=== PATIENT | male | born 1940 | race African-American/Black ===

== ENCOUNTER 2017-12-11 12:12 | Observation (INO) | payer OTHER ==
[~2017-12-11] VITALS: Ht 182.9 cm; Wt 163.9 kg
--- NOTE | 2017-12-11 15:08 | Diagnostic Imaging Report ---
PROCEDURE:X-RAY UNILATERAL RIBS WITH CHEST X-RAY COMPARISON:None. INDICATIONS:FALL, LEFT SIDE RIB PAIN FINDINGS: 2 views each of the right and left ribs (AP and oblique) and one additional AP view of the chest. There are mildly displaced fractures of what appear to be the left lateral fourth, fifth, sixth, and seventh ribs. CONCLUSION: Mildly displaced fractures of what appear to be the left lateral fourth, fifth, sixth, and seventh ribs. Dictated by: Leandro Cohen M.D. on 12/11/2017 at 15:17 Electronically approved by: Leandro Cohen M.D. on 12/11/2017 at 15:17
[2017-12-11] MEDS ORDERED: SODIUM CHLORIDE FLUSH 10 ML SYR INJ PRN (16:45)
[2017-12-11] MEDS ORDERED: ONDANSETRON HCL INJ 2 MG/ML VIAL IV PRN (16:45)
[2017-12-11] MEDS ORDERED: KETOROLAC TROMETHAMINE 30 MG/ML VIAL IV STA (16:59)
[2017-12-11] MEDS ORDERED: FENTANYL 50 MCG/HR PATCH TOP SCH (17:30)
[2017-12-11] MEDS ORDERED: METFORMIN HCL500 MG PO (18:38)
[2017-12-11] MEDS ORDERED: SPIRONOLACTONE25 MG PO (18:38)
[2017-12-11] MEDS ORDERED: CARVEDILOL12.5 MG PO (18:38)
[2017-12-11] MEDS ORDERED: ASPIR 8181 MG (18:38)
[2017-12-11] MEDS ORDERED: DILTIAZEM 24HR180 MG PO ×2 (18:38→23:20)
[2017-12-11] MEDS ORDERED: HYDROCHLOROTHIA25 MG PO (18:38)
[2017-12-11] MEDS ORDERED: LOSARTAN POTAS100 MG PO (18:38)
[2017-12-11] MEDS ORDERED: DILTIAZEM HCL60 MG PO (18:38)
[2017-12-11] MEDS ORDERED: OMEPRAZOLE40 MG PO (18:38)
[2017-12-11 19:35] VITALS: BP 131/57
[2017-12-11] MEDS ORDERED: KETOROLAC TROMETHAMINE 30 MG/ML VIAL IV ONE (19:45)
[2017-12-11 20:00] VITALS: BP 131/57
[2017-12-11] MEDS ORDERED: LANTUS 3ML100 UNITS/ SQ (23:20)
[2017-12-11] MEDS: SODIUM CHLORIDE 0.9% 1000ML 1,000 ML IV SCH (23:28)
[2017-12-12] VITALS (7 sets, daily range): BP systolic 136–162; BP diastolic 62–79
[2017-12-12] MEDS: MORPHINE SULFATE 2 MG/ML SYR IV PRN ×3 (01:03→20:03)
[2017-12-12] MEDS ORDERED: METFORMIN HCL 500 MG TAB PO SCH (08:00)
[2017-12-12] MEDS ORDERED: DILTIAZEM HCL 60 MG TAB PO SCH (09:00)
[2017-12-12] MEDS ORDERED: ASPIRIN 81 MG CHEW TAB PO SCH (09:00)
[2017-12-12] MEDS ORDERED: DILTIAZEM HCL 180 MG CAP CD PO SCH (09:00)
[2017-12-12] MEDS: SPIRONOLACTONE 25 MG TAB PO SCH (09:01)
[2017-12-12] MEDS: DILTIAZEM HCL 180 MG CAP CD PO SCH (09:01)
[2017-12-12] MEDS: LOSARTAN POTASSIUM 100 MG TAB PO SCH (09:02)
[2017-12-12] MEDS: PANTOPRAZOLE SOD 40 MG TABEC PO SCH (09:02)
[2017-12-12] MEDS: LIDOCAINE 5% PATCH TP SCH (09:02)
[2017-12-12] MEDS: HYDROCHLOROTHIAZIDE 25 MG TAB PO SCH (09:02)
[2017-12-12] MEDS: CARVEDILOL 12.5 MG TAB PO SCH ×2 (09:02→17:47)
[2017-12-12] MEDS: SODIUM CHLORIDE 0.9% 1000ML 1,000 ML IV SCH (10:32)
[2017-12-12] MEDS ORDERED: DEXTROSE 50% SYRINGE 50 ML IV PRN (12:45)
[2017-12-12] MEDS ORDERED: MAGNESIUM HYDROXIDE 30 ML UDC PO PRN (12:45)
[2017-12-12] MEDS ORDERED: HYDROCODONE/APAP 10MG-325MG TAB PO PRN (12:45)
[2017-12-12] MEDS: KETOROLAC TROMETHAMINE 30 MG/ML VIAL IV SCH ×3 (13:03→23:21)
[2017-12-12] MEDS: SENNOSIDES 8.6 MG TAB PO SCH ×2 (13:03→17:47)
[2017-12-12 13:30] LABS: BASOPHILS % 0.2 % (0.0-1.0); EOSINOPHILS # (AUTO) 0.3 (0.0-0.4); EOSINOPHILS % 3.1 % (0.0-6.0); HEMATOCRIT 34.9 % (38.2-49.6); HEMOGLOBIN 10.5 g/dL (14.0-18.0); LYMPHOCYTES # (AUTO) 1.9 (1.0-3.2); LYMPHOCYTES % 19.1 % (18.0-39.1); MEAN CORPUSCULAR HEMOGLOBIN 27.3 pg (28-32); MEAN CORPUSCULAR HGB CONC 30.1 g/dL (31-35); MEAN CORPUSCULAR VOLUME 90.6 fL (81-99); MONOCYTES # (AUTO) 1.1 (0.2-0.8); NEUTROPHILS # (AUTO) 6.5 (2.1-6.9); NEUTROPHILS % 66.2 % (38.7-80.0); PLATELET COUNT 259 x10e3/uL (140-360); RED BLOOD COUNT 3.85 x10e6/uL (4.3-5.7); RED CELL DISTRIBUTION WIDTH 15.9 % (11.7-14.4)
[2017-12-12 13:46] LABS: ANION GAP 10.7 mmol/L (8-16); CREATININE, SERUM 1.71 mg/dL (0.72-1.25); POTASSIUM 4.7 mmol/L (3.5-5.1)
[2017-12-12] MEDS: INSULIN LISPRO 100 UNIT/1 ML 3ML VIAL SQ SCH ×2 (16:30→21:00)
[2017-12-12] MEDS: METFORMIN HCL 500 MG TAB PO SCH (17:47)
[2017-12-12] MEDS ORDERED: NIFEDIPINE 10 MG CAP PO ONE (20:30)
[2017-12-12] MEDS ORDERED: NIFEDIPINE CR 30 MG TAB PO SCH (20:32)
[2017-12-13] VITALS: BP 152/68
--- NOTE | 2017-12-13 02:34 | Consultation ---
DATE OF CONSULTATION: PULMONARY CONSULTATION REASON FOR CONSULT: Shortness of breath. HPI: Mr. Valerio is a 77-year-old male who presented to the emergency room after a fall. Patient had an accidental fall. He underwent a chest x-ray in the emergency room, which showed evidence of 4th, 5th, 6th, and 7th rib fractures on the left side, which were nondisplaced. He is having left-sided chest pain and is getting IV analgesics. He denies any nausea, vomiting, diarrhea, or focal weakness. REVIEW OF SYSTEMS GENERAL: Denies any fever or chills. HEENT: Denies any head trauma or head injury. ENT: Denies any earache, nosebleed or throat pain. CV: Denies any chest pain. RESPIRATORY: Patient has shortness of breath. GI: Denies any nausea or vomiting. The rest of the review systems are negative except as in HPI. PAST MEDICAL HISTORY: Hypertension, ex-smoker and smoked for 20 years. Patient has been tested for sleep apnea, and he does not have obstructive sleep apnea. However, he uses oxygen at night to sleep. Has diabetes and hypertension. PAST SURGICAL HISTORY: Soft tissue tumor removal from the leg. PHYSICAL EXAMINATION VITAL SIGNS: Temperature 97.2, pulse of 80, blood pressure 136/62, respiratory rate 18, O2 sat 96% on 2 L. SKIN: Warm and dry. CHEST: Clear to auscultation bilaterally. No wheezing. HEART: S1 and S2 audible. CHEST: Clear to auscultation bilaterally. No wheezing. Patient is having difficulty breathing and has pleuritic chest pain on the left side. ABDOMEN: Soft, nontender and nondistended. EXTREMITIES: No clubbing, cyanosis or edema. NEUROLOGIC: Awake and alert. Following commands. Responds to questions appropriately. LABS: White count of 9.8, hemoglobin 10.5 and platelets 259,000. Chemistry: BUN 25, creatinine 1.71. He has never been here, so unsure about his baseline. ASSESSMENT AND PLAN: Mr. Valerio is a 77-year-old male, morbidly obese, presented after the fall that resulted in rib fractures causing him to have shortness of breath and pleuritic chest pain. CURRENT PROBLEMS 1. Rib fractures causing shortness of breath and pleuritic chest pain: Unfortunately, it will heal with the passage of time. I have explained to the patient that he has to continue pain medications as an outpatient as well. Currently, on IV Toradol and morphine, which will be continued. 2. Hypertension: Continue the patient on antihypertensive medications. Thank you for this consult. Job#: [id number] CLARENCE
[2017-12-13 03:59] VITALS: BP 159/68
[2017-12-13] MEDS: KETOROLAC TROMETHAMINE 30 MG/ML VIAL IV SCH (05:45)
[2017-12-13 06:49] LABS: BASOPHILS % 0.3 % (0.0-1.0); EOSINOPHILS # (AUTO) 0.5 (0.0-0.4); EOSINOPHILS % 5.4 % (0.0-6.0); HEMATOCRIT 34.7 % (38.2-49.6); HEMOGLOBIN 10.7 g/dL (14.0-18.0); LYMPHOCYTES # (AUTO) 1.9 (1.0-3.2); LYMPHOCYTES % 21.8 % (18.0-39.1); MEAN CORPUSCULAR HEMOGLOBIN 27.5 pg (28-32); MEAN CORPUSCULAR HGB CONC 30.8 g/dL (31-35); MEAN CORPUSCULAR VOLUME 89.2 fL (81-99); MONOCYTES # (AUTO) 1.2 (0.2-0.8); NEUTROPHILS # (AUTO) 5.2 (2.1-6.9); NEUTROPHILS % 59.2 % (38.7-80.0); PLATELET COUNT 164 x10e3/uL (140-360); RED BLOOD COUNT 3.89 x10e6/uL (4.3-5.7); RED CELL DISTRIBUTION WIDTH 15.9 % (11.7-14.4)
[2017-12-13 07:13] LABS: ANION GAP 14.4 mmol/L (8-16); BLOOD UREA NITROGEN 26 mg/dL (7-26); BUN/CREATININE RATIO 19 (6-25); CALCIUM 9.2 mg/dL (8.4-10.2); CARBON DIOXIDE 29 mmol/L (22-29); CHLORIDE 100 mmol/L (98-107); CREATININE, SERUM 1.35 mg/dL (0.72-1.25); EST GLOMERULAR FILTRATION RATE > 60 ML/MIN (60-); GLUCOSE 119 mg/dL (74-118); POTASSIUM 4.4 mmol/L (3.5-5.1); SODIUM 139 mmol/L (136-145)
[2017-12-13] MEDS: INSULIN LISPRO 100 UNIT/1 ML 3ML VIAL SQ SCH (07:30)
[2017-12-13 08:00] VITALS: BP 165/72
[2017-12-13] MEDS: METFORMIN HCL 500 MG TAB PO SCH (08:57)
[2017-12-13] MEDS: SPIRONOLACTONE 25 MG TAB PO SCH (08:57)
[2017-12-13] MEDS: DILTIAZEM HCL 180 MG CAP CD PO SCH (08:58)
[2017-12-13] MEDS: HYDROCHLOROTHIAZIDE 25 MG TAB PO SCH (08:59)
[2017-12-13] MEDS: PANTOPRAZOLE SOD 40 MG TABEC PO SCH (08:59)
[2017-12-13] MEDS: LOSARTAN POTASSIUM 100 MG TAB PO SCH (08:59)
[2017-12-13] MEDS: SENNOSIDES 8.6 MG TAB PO SCH (08:59)
[2017-12-13] MEDS: CARVEDILOL 12.5 MG TAB PO SCH (08:59)
[2017-12-13] MEDS: LIDOCAINE 5% PATCH TP SCH (08:59)
[2017-12-13] MEDS ORDERED: NIFEDIPINE 10 MG CAP PO SCH (09:00)
[2017-12-13] MEDS ORDERED: FENTANYL 50 MCG/HR PATCH TOP SCH (09:45)
--- NOTE | 2017-12-14 03:18 | Discharge Summary ---
FINAL DIAGNOSES 1. Displaced fractures of left lateral 4th, 5th, 6th, and 7th rib after an accidental fall. 2. Intractable left side pain, much improved. SUMMARY: Patient is a 77-year-old male, obese, apparently trying to put on his pants, fell on the left side, fractured multiple ribs, intractable pain, came into the hospital for pain control. The patient doing much better now. He is stable. He will go home today. Follow up with his family doctor. He had Duragesic patch and multiple Lidoderm patch along with naproxen and tramadol. The patient is, otherwise, stable. He will go home, follow up with his family doctor on Thursday or Thursday to continue with pain management as an outpatient. The patient does have oxygen at home. Job#: [id number] CQ
[2017-12-14] MEDS ORDERED: FENTANYL 50 MCG/HR PATCH TOP SCH (17:30)
== END 2017-12-13 10:04 | disposition home or self-care (01) ==
LOC: ER 12:12 → ERHOLD 17:33 → IMCU 18:19
PROVIDERS: ADMIT Internal Medicine; ATTEND Internal Medicine
DX: S22.42XA Multiple fractures of ribs, left side, initial encounter for closed fracture (principal); W18.09XA Striking against other object with subsequent fall, initial encounter; Y93.89 Activity, other specified; Y92.010 Kitchen of single-family (private) house as the place of occurrence of the external cause; Z99.81 Dependence on supplemental oxygen; E66.01 Morbid (severe) obesity due to excess calories; Z68.42 Body mass index [BMI] 45.0-49.9, adult; I10 Essential (primary) hypertension; K21.9 Gastro-esophageal reflux disease without esophagitis; E11.9 Type 2 diabetes mellitus without complications; Z79.4 Long term (current) use of insulin; Z88.5 Allergy status to narcotic agent; Z88.0 Allergy status to penicillin; Z87.891 Personal history of nicotine dependence
CPT/HCPCS: 36415 ×3; 71101; 80048 ×2; 82948 ×3; 85025 ×2; 96367; 96374; 99284; G0378 ×3; J1885 ×3; J2270; J2405; J7030 ×2

== ENCOUNTER 2019-08-11 03:47 | Inpatient (IN) | payer OTHER ==
[~2019-08-11] VITALS: Ht 182.9 cm; Wt 159.7 kg
[2019-08-11] VITALS (11 sets, daily range): BP systolic 104–138; BP diastolic 48–72
[~2019-08-11 03:47] MED LIST: ASPIR 8181 MG; CARVEDILOL12.5 MG PO; DILTIAZEM 24HR180 MG PO; DILTIAZEM HCL60 MG PO; HYDROCHLOROTHIA25 MG PO; LANTUS 3ML100 UNITS/ SQ; LOSARTAN POTAS100 MG PO; METFORMIN HCL500 MG PO; OMEPRAZOLE40 MG PO; SPIRONOLACTONE25 MG PO
--- OUTSIDE RECORDS SUMMARY | 2019-08-11 03:50 | XMS REPORT ---
Author Author [facility] Address Unknown Phone Unavailable Care Team Providers Care Freight Breaker Name Role Phone UNKNOWN, REFFERING PP Unavailable MELY LIANG Unavailable Unavailable PETRONALani RASHID Unavailable Unavailable EASTON, L ELEGY Unavailable Unavailable Problems This patient has no known problems. Allergies, Adverse Reactions, Alerts This patient has no known allergies or adverse reactions. Medications This patient has no known medications. Results Test Description Test Time Test Comments Text Results Atomic Results Result Comments U/S, TESTICULAR (SCROTUM) 2018-03-24 06:35:00 Reason for exam:->r/o abscessShould this be performed at the bedside?->No Addendum BeginsREPORT STATUS:A The following addendum is being made to expand on the patient's clinical history, and does not substantially change the findings or recommendations of the original report. Additional history: Scrotal swelling. Status post fall and trauma two weeks prior. Signed: Gracie Esquivel MDReport Verified Date/Time: 03/24/2018 06:35:05 Reading Location: [address] Transitional Reading RoomAddendum EndsFINAL REPORT Exam: Testicular ultrasound Clinical History: r/o abscess Technique: Testicular ultrasound was performed. Color and spectral Doppler ultrasound was also performed. Findings: RIGHT:The right testicle is normal in size and echogenicity measuring 3.7 x 1.8 x 2.5 cm. There are multiple tiny echogenic foci within the testicle in keeping with microlithiasis. The right epididymis is normal in size and echogenicity. The right epididymal head measures up to 1.0 cm. There is a 4 mm epididymal head cyst or spermatocele. Color and spectral Doppler evaluation of the right testicle and epididymis demonstrates normal vascular flow without hyperemia. There is a large hydrocele. There is no varicocele. LEFT:The left testicle is normal in size and echogenicity measuring 4.5 x 3.0 x 2.8 cm. There are a few scattered tiny echogenic foci within the testicle in keeping with microlithiasis. The left epididymis is normal in size and echogenicity. The left epididymal head measures up to 1.4 cm. Color and spectral Doppler evaluation of the left testicle and epididymis demonstrates normal vascular flow without hyperemia. There is a large hydrocele. There is no varicocele. 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 Sig bonny: Gracie Esquivel MDReport Verified Date/Time: 03/10/2018 04:37:32 Reading Location: [facility] C0[facility] Transitional Reading Room UE EXAM 2018-03-16 19:05:00 Surgical Pathology Report Case: [id number] Authorizing Provider: Rosario Bennett MD Collected: 03/15/2018 1715 Ord ering Location: [address] Received: 03/16/2018 0801 SERVICE Pathologist: Stacie Lr MD Specimen: Biopsy, Gastric, gastric bx A. 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 Signing Pathologist Direct Phone Line: [phone] signed by Stacie Lr MD on 03/16/2018 at 7:05 [id number] mass Gastric biopsy The specimen is received in a formalin-filled container labeled with the patient's information and labeled "gastric biopsy" and consists of two fragments of albert tissue measuring 0.1 and 0.2 cm, submitted in A1. CG/ew A. Warthin-starry stain is examined. POCT-GLUCOSE METER 2018-03-16 11:58:00 POC-GLUCOSE METER (BEAKER) (test vfyz=6061) 184 mg/dL 70-110 TESTED AT [facility] [address] [facility] [address] [id number] 04:40:00* Test Item Value Reference Range Comments PHOSPHORUS (BEAKER) (test hwei=388) 4.2 mg/dL 2.3-4.7 [id number] 04:40:00* Test Item Value Reference Range Comments MAGNESIUM (BEAKER) (test klnm=760) 1.5 mg/dL 1.6-2.6 BASIC METABOLIC [id number] 04:40:00* Test Item Value Reference Range Comments SODIUM (BEAKER) (test uenf=291) 143 meq/L 136-145 POTASSIUM (BEAKER) (test rjiq=801) 3.8 meq/L 3.5-5.1 CHLORIDE (BEAKER) (test dorb=869) 108 meq/L 98-107 CO2 (BEAKER) (test vbgq=903) 25 meq/L 22-29 BLOOD UREA NITROGEN (BEAKER) (test atvd=394) 10 mg/dL 7-21 CREATININE (BEAKER) (test mame=428) 1.53 mg/dL 0.57-1.25 GLUCOSE RANDOM (BEAKER) (test vhnp=667) 133 mg/dL 70-105 CALCIUM (BEAKER) (test jgzy=367) 9.1 mg/dL 8.4-10.2 EGFR (BEAKER) (test tmlk=9575) 53 mL/min/1.73 sq m ESTIMATED GFR IS NOT ACCURATE CREATININE CLEARANCE IN PREDICTING GLOMERULAR FILTRATION RATE. ESTIMATED GFR IS NOT APPLICABLE FOR DIALYSIS PATIENTS. CBC W/PLT COUNT & AUTO [id number] 04:24:00* Test Item Value Reference Range Comments WHITE BLOOD CELL COUNT (BEAKER) (test dsqd=024) 8.5 K/ L 3.5-10.5 RED BLOOD CELL COUNT (BEAKER) (test vwot=095) 4.61 M/ L 4.63-6.08 HEMOGLOBIN (BEAKER) (test iily=463) 12.5 GM/DL 13.7-17.5 HEMATOCRIT (BEAKER) (test nddw=157) 41.0 % 40.1-51.0 MEAN CORPUSCULAR VOLUME (BEAKER) (test dnvn=378) 88.9 fL 79.0-92.2 MEAN CORPUSCULAR HEMOGLOBIN (BEAKER) (test mlua=969) 27.1 pg 25.7-32.2 MEAN CORPUSCULAR HEMOGLOBIN CONC (BEAKER) (test fbgj=220) 30.5 GM/DL 32.3-36.5 RED CELL DISTRIBUTION WIDTH (BEAKER) (test wgrq=737) 18.5 % 11.6-14.4 PLATELET COUNT (BEAKER) (test qwbh=364) 374 K/CU MM 150-450 MEAN PLATELET VOLUME (BEAKER) (test axkm=472) 11.5 fL 9.4-12.4 NUCLEATED RED BLOOD CELLS (BEAKER) (test kchp=448) 0 /100 WBC 0-0 NEUTROPHILS RELATIVE PERCENT (BEAKER) (test lpoq=898) 60 % LYMPHOCYTES RELATIVE PERCENT (BEAKER) (test kahj=120) 24 % MONOCYTES RELATIVE PERCENT (BEAKER) (test mtcn=131) 11 % EOSINOPHILS RELATIVE PERCENT (BEAKER) (test witx=290) 5 % BASOPHILS RELATIVE PERCENT (BEAKER) (test nhzd=300) 1 % NEUTROPHILS ABSOLUTE COUNT (BEAKER) (test vdli=944) 5.08 K/ L 1.78-5.38 LYMPHOCYTES ABSOLUTE COUNT (BEAKER) (test vugl=727) 2.02 K/ L 1.32-3.57 MONOCYTES ABSOLUTE COUNT (BEAKER) (test gvyi=861) 0.90 K/ L 0.30-0.82 EOSINOPHILS ABSOLUTE COUNT (BEAKER) (test bhnk=388) 0.38 K/ L 0.04-0.54 BASOPHILS ABSOLUTE COUNT (BEAKER) (test vqqe=426) 0.06 K/ L 0.01-0.08 IMMATURE GRANULOCYTES-RELATIVE PERCENT (BEAKER) (test irla=6725) 1 % 0-1 POCT-GLUCOSE [id number] 03:43:00* Test Item Value Reference Range Comments POC-GLUCOSE METER (BEAKER) (test xkyw=3675) 172 mg/dL 70-110 TESTED AT [address] [address] POCT-GLUCOSE [id number] 17:38:00* Test Item Value Reference Range Comments POC-GLUCOSE METER (BEAKER) (test smgo=4418) 143 mg/dL 70-110 TESTED AT [address] [address] POCT-GLUCOSE [id number] 11:31:00* Test Item Value Reference Range Comments POC-GLUCOSE METER (BEAKER) (test fgbf=2803) 150 mg/dL 70-110 TESTED AT [address] [address] POCT-GLUCOSE [id number] 07:50:00* Test Item Value Reference Range Comments POC-GLUCOSE METER (BEAKER) (test migd=2610) 155 mg/dL 70-110 TESTED AT [facility] [address] [facility] [address] [id number] 06:48:00* Test Item Value Reference Range Comments PHOSPHORUS (BEAKER) (test cvvb=925) 4.6 mg/dL 2.3-4.7 [id number] 06:48:00* Test Item Value Reference Range Comments MAGNESIUM (BEAKER) (test rmxu=894) 1.7 mg/dL 1.6-2.6 BASIC METABOLIC [id number] 06:48:00* Test Item Value Reference Range Comments SODIUM (BEAKER) (test ppbn=265) 142 meq/L 136-145 POTASSIUM (BEAKER) (test dbux=554) 4.0 meq/L 3.5-5.1 CHLORIDE (BEAKER) (test qzzs=516) 107 meq/L 98-107 CO2 (BEAKER) (test kjdj=475) 28 meq/L 22-29 BLOOD UREA NITROGEN (BEAKER) (test zroo=432) 10 mg/dL 7-21 CREATININE (BEAKER) (test kxuw=494) 1.45 mg/dL 0.57-1.25 GLUCOSE RANDOM (BEAKER) (test cafh=136) 137 mg/dL 70-105 CALCIUM (BEAKER) (test jrdu=731) 9.3 mg/dL 8.4-10.2 EGFR (BEAKER) (test fyte=9302) 57 mL/min/1.73 sq m ESTIMATED GFR IS NOT ACCURATE CREATININE CLEARANCE IN PREDICTING GLOMERULAR FILTRATION RATE. ESTIMATED GFR IS NOT APPLICABLE FOR DIALYSIS PATIENTS. CBC W/PLT COUNT & AUTO [id number] 06:25:00* Test Item Value Reference Range Comments WHITE BLOOD CELL COUNT (BEAKER) (test mjst=173) 9.0 K/ L 3.5-10.5 RED BLOOD CELL COUNT (BEAKER) (test zsqa=086) 4.66 M/ L 4.63-6.08 HEMOGLOBIN (BEAKER) (test oklx=711) 12.2 GM/DL 13.7-17.5 HEMATOCRIT (BEAKER) (test uymi=244) 41.4 % 40.1-51.0 MEAN CORPUSCULAR VOLUME (BEAKER) (test pcuz=756) 88.8 fL 79.0-92.2 MEAN CORPUSCULAR HEMOGLOBIN (BEAKER) (test hikl=947) 26.2 pg 25.7-32.2 MEAN CORPUSCULAR HEMOGLOBIN CONC (BEAKER) (test xnag=290) 29.5 GM/DL 32.3-36.5 RED CELL DISTRIBUTION WIDTH (BEAKER) (test jgyx=732) 18.3 % 11.6-14.4 PLATELET COUNT (BEAKER) (test pmax=519) 424 K/CU MM 150-450 MEAN PLATELET VOLUME (BEAKER) (test raji=780) 11.3 fL 9.4-12.4 NUCLEATED RED BLOOD CELLS (BEAKER) (test bniu=458) 0 /100 WBC 0-0 NEUTROPHILS RELATIVE PERCENT (BEAKER) (test rtki=978) 58 % LYMPHOCYTES RELATIVE PERCENT (BEAKER) (test bmpy=708) 22 % MONOCYTES RELATIVE PERCENT (BEAKER) (test itlu=301) 13 % EOSINOPHILS RELATIVE PERCENT (BEAKER) (test svbw=895) 6 % BASOPHILS RELATIVE PERCENT (BEAKER) (test cxpr=752) 1 % NEUTROPHILS ABSOLUTE COUNT (BEAKER) (test ebts=301) 5.29 K/ L 1.78-5.38 LYMPHOCYTES ABSOLUTE COUNT (BEAKER) (test ubol=490) 1.94 K/ L 1.32-3.57 MONOCYTES ABSOLUTE COUNT (BEAKER) (test fmpi=498) 1.15 K/ L 0.30-0.82 EOSINOPHILS ABSOLUTE COUNT (BEAKER) (test hopo=802) 0.54 K/ L 0.04-0.54 BASOPHILS ABSOLUTE COUNT (BEAKER) (test efcr=115) 0.05 K/ L 0.01-0.08 IMMATURE GRANULOCYTES-RELATIVE PERCENT (BEAKER) (test hdiq=9233) 1 % 0-1 POCT-GLUCOSE [id number] 21:31:00* Test Item Value Reference Range Comments POC-GLUCOSE METER (BEAKER) (test oawv=0879) 146 mg/dL 70-110 TESTED AT [facility] [address] [facility] [address] POCT-GLUCOSE [id number] 17:26:00* Test Item Value Reference Range Comments POC-GLUCOSE METER (BEAKER) (test vxiq=4535) 163 mg/dL 70-110 TESTED AT [facility] [address] [facility] [address] POCT-GLUCOSE [id number] 12:26:00* Test Item Value Reference Range Comments POC-GLUCOSE METER (BEAKER) (test izqx=1258) 233 mg/dL 70-110 TESTED AT [place] [id number] [facility] [address] POCT-GLUCOSE [id number] 07:46:00* Test Item Value Reference Range Comments POC-GLUCOSE METER (BEAKER) (test czui=0316) 158 mg/dL 70-110 TESTED AT [place] [id number] [facility] [address] CBC W/PLT COUNT & AUTO [id number] 06:32:00* Test Item Value Reference Range Comments WHITE BLOOD CELL COUNT (BEAKER) (test dwya=533) 8.6 K/ L 3.5-10.5 RED BLOOD CELL COUNT (BEAKER) (test lopv=040) 4.58 M/ L 4.63-6.08 HEMOGLOBIN (BEAKER) (test vkvh=670) 12.5 GM/DL 13.7-17.5 HEMATOCRIT (BEAKER) (test xrcg=730) 40.5 % 40.1-51.0 MEAN CORPUSCULAR VOLUME (BEAKER) (test vgfg=142) 88.4 fL 79.0-92.2 MEAN CORPUSCULAR HEMOGLOBIN (BEAKER) (test rmly=637) 27.3 pg 25.7-32.2 MEAN CORPUSCULAR HEMOGLOBIN CONC (BEAKER) (test bozd=579) 30.9 GM/DL 32.3-36.5 RED CELL DISTRIBUTION WIDTH (BEAKER) (test dvfi=562) 18.4 % 11.6-14.4 PLATELET COUNT (BEAKER) (test lvor=861) 272 K/CU MM 150-450 MEAN PLATELET VOLUME (BEAKER) (test ihwt=006) 11.6 fL 9.4-12.4 NUCLEATED RED BLOOD CELLS (BEAKER) (test wice=128) 0 /100 WBC 0-0 NEUTROPHILS RELATIVE PERCENT (BEAKER) (test ljru=366) 54 % LYMPHOCYTES RELATIVE PERCENT (BEAKER) (test bzhp=450) 23 % MONOCYTES RELATIVE PERCENT (BEAKER) (test kaop=229) 17 % EOSINOPHILS RELATIVE PERCENT (BEAKER) (test hqsj=406) 6 % BASOPHILS RELATIVE PERCENT (BEAKER) (test jzyn=953) 1 % NEUTROPHILS ABSOLUTE COUNT (BEAKER) (test odhw=855) 4.59 K/ L 1.78-5.38 LYMPHOCYTES ABSOLUTE COUNT (BEAKER) (test cagh=789) 1.95 K/ L 1.32-3.57 MONOCYTES ABSOLUTE COUNT (BEAKER) (test xlcm=035) 1.41 K/ L 0.30-0.82 EOSINOPHILS ABSOLUTE COUNT (BEAKER) (test lkdm=616) 0.49 K/ L 0.04-0.54 BASOPHILS ABSOLUTE COUNT (BEAKER) (test hpke=423) 0.04 K/ L 0.01-0.08 IMMATURE GRANULOCYTES-RELATIVE PERCENT (BEAKER) (test momi=1663) 1 % 0-1 [id number] 06:04:00* Test Item Value Reference Range Comments PHOSPHORUS (BEAKER) (test kqap=877) 3.7 mg/dL 2.3-4.7 [id number] 06:04:00* Test Item Value Reference Range Comments MAGNESIUM (BEAKER) (test mety=752) 1.4 mg/dL 1.6-2.6 BASIC METABOLIC [id number] 06:04:00* Test Item Value Reference Range Comments SODIUM (BEAKER) (test hlsl=187) 140 meq/L 136-145 POTASSIUM (BEAKER) (test haky=951) 4.0 meq/L 3.5-5.1 CHLORIDE (BEAKER) (test nwhi=350) 107 meq/L 98-107 CO2 (BEAKER) (test adbq=614) 24 meq/L 22-29 BLOOD UREA NITROGEN (BEAKER) (test ngiq=303) 10 mg/dL 7-21 CREATININE (BEAKER) (test jdka=088) 1.34 mg/dL 0.57-1.25 GLUCOSE RANDOM (BEAKER) (test yhvf=334) 160 mg/dL 70-105 CALCIUM (BEAKER) (test gygf=631) 9.3 mg/dL 8.4-10.2 EGFR (BEAKER) (test ielo=7374) 62 mL/min/1.73 sq m ESTIMATED GFR IS NOT ACCURATE CREATININE CLEARANCE IN PREDICTING GLOMERULAR FILTRATION RATE. ESTIMATED GFR IS NOT APPLICABLE FOR DIALYSIS PATIENTS. POCT-GLUCOSE [id number] 22:00:00* Test Item Value Reference Range Comments POC-GLUCOSE METER (BEAKER) (test xbox=8292) 183 mg/dL 70-110 TESTED AT [address] [address] POCT-GLUCOSE [id number] 17:39:00* Test Item Value Reference Range Comments POC-GLUCOSE METER (BEAKER) (test snhr=3602) 172 mg/dL 70-110 TESTED AT [address] [address] POCT-GLUCOSE [id number] 12:35:00* Test Item Value Reference Range Comments POC-GLUCOSE METER (BEAKER) (test fred=2776) 238 mg/dL 70-110 TESTED AT [address] [address] POCT-GLUCOSE [id number] 07:51:00* Test Item Value Reference Range Comments POC-GLUCOSE METER (BEAKER) (test ntjs=6072) 160 mg/dL 70-110 TESTED AT [address] [address] [id number] 07:42:00* Test Item Value Reference Range Comments PHOSPHORUS (BEAKER) (test xqnp=464) 2.8 mg/dL 2.3-4.7 [id number] 07:42:00* Test Item Value Reference Range Comments MAGNESIUM (BEAKER) (test hdfw=985) 1.4 mg/dL 1.6-2.6 BASIC METABOLIC [id number] 07:42:00* Test Item Value Reference Range Comments SODIUM (BEAKER) (test lifg=090) 139 meq/L 136-145 POTASSIUM (BEAKER) (test heuj=297) 4.0 meq/L 3.5-5.1 CHLORIDE (BEAKER) (test eqnh=362) 106 meq/L 98-107 CO2 (BEAKER) (test zmzd=294) 25 meq/L 22-29 BLOOD UREA NITROGEN (BEAKER) (test etrv=412) 8 mg/dL 7-21 CREATININE (BEAKER) (test effc=125) 1.13 mg/dL 0.57-1.25 GLUCOSE RANDOM (BEAKER) (test pnyb=209) 135 mg/dL 70-105 CALCIUM (BEAKER) (test motn=643) 9.2 mg/dL 8.4-10.2 EGFR (BEAKER) (test sjup=6085) 76 mL/min/1.73 sq m ESTIMATED GFR IS NOT ACCURATE CREATININE CLEARANCE IN PREDICTING GLOMERULAR FILTRATION RATE. ESTIMATED GFR IS NOT APPLICABLE FOR DIALYSIS PATIENTS. CBC W/PLT COUNT & AUTO [id number] 07:29:00* Test Item Value Reference Range Comments WHITE BLOOD CELL COUNT (BEAKER) (test ynyq=226) 7.5 K/ L 3.5-10.5 RED BLOOD CELL COUNT (BEAKER) (test euyk=419) 4.72 M/ L 4.63-6.08 HEMOGLOBIN (BEAKER) (test wugz=493) 12.8 GM/DL 13.7-17.5 HEMATOCRIT (BEAKER) (test qysi=126) 41.8 % 40.1-51.0 MEAN CORPUSCULAR VOLUME (BEAKER) (test ktdz=289) 88.6 fL 79.0-92.2 MEAN CORPUSCULAR HEMOGLOBIN (BEAKER) (test asnh=790) 27.1 pg 25.7-32.2 MEAN CORPUSCULAR HEMOGLOBIN CONC (BEAKER) (test ormu=417) 30.6 GM/DL 32.3-36.5 RED CELL DISTRIBUTION WIDTH (BEAKER) (test gsnp=970) 18.2 % 11.6-14.4 PLATELET COUNT (BEAKER) (test lphq=251) 319 K/CU MM 150-450 MEAN PLATELET VOLUME (BEAKER) (test zadx=048) 11.1 fL 9.4-12.4 NUCLEATED RED BLOOD CELLS (BEAKER) (test qgfy=756) 0 /100 WBC 0-0 NEUTROPHILS RELATIVE PERCENT (BEAKER) (test tlux=516) 48 % LYMPHOCYTES RELATIVE PERCENT (BEAKER) (test kvvj=872) 24 % MONOCYTES RELATIVE PERCENT (BEAKER) (test jltj=252) 19 % EOSINOPHILS RELATIVE PERCENT (BEAKER) (test coey=887) 7 % BASOPHILS RELATIVE PERCENT (BEAKER) (test rfcc=713) 1 % NEUTROPHILS ABSOLUTE COUNT (BEAKER) (test cvzu=437) 3.58 K/ L 1.78-5.38 LYMPHOCYTES ABSOLUTE COUNT (BEAKER) (test cwco=943) 1.78 K/ L 1.32-3.57 MONOCYTES ABSOLUTE COUNT (BEAKER) (test kfvo=701) 1.43 K/ L 0.30-0.82 EOSINOPHILS ABSOLUTE COUNT (BEAKER) (test droi=956) 0.55 K/ L 0.04-0.54 BASOPHILS ABSOLUTE COUNT (BEAKER) (test yqao=424) 0.05 K/ L 0.01-0.08 IMMATURE GRANULOCYTES-RELATIVE PERCENT (BEAKER) (test netm=7841) 1 % 0-1 BLOOD [id number] 06:00:00* Test Item Value Reference Range Comments CULTURE (BEAKER) (test dumh=8666) No growth in 5 days POCT-GLUCOSE [id number] 21:14:00* Test Item Value Reference Range Comments POC-GLUCOSE METER (BEAKER) (test muab=5139) 226 mg/dL 70-110 TESTED AT [address] [address] POCT-GLUCOSE [id number] 18:15:00* Test Item Value Reference Range Comments POC-GLUCOSE METER (BEAKER) (test xhid=0813) 204 mg/dL 70-110 TESTED AT [address] [address] POCT-GLUCOSE [id number] 12:50:00* Test Item Value Reference Range Comments POC-GLUCOSE METER (BEAKER) (test jxdh=8392) 184 mg/dL 70-110 TESTED AT [address] [address] CBC W/PLT COUNT & AUTO [id number] 12:05:00* Test Item Value Reference Range Comments WHITE BLOOD CELL COUNT (BEAKER) (test eqjy=778) 8.0 K/ L 3.5-10.5 RED BLOOD CELL COUNT (BEAKER) (test hevo=045) 4.61 M/ L 4.63-6.08 HEMOGLOBIN (BEAKER) (test yhba=882) 12.4 GM/DL 13.7-17.5 HEMATOCRIT (BEAKER) (test jhrp=278) 41.9 % 40.1-51.0 MEAN CORPUSCULAR VOLUME (BEAKER) (test gfrh=480) 90.9 fL 79.0-92.2 MEAN CORPUSCULAR HEMOGLOBIN (BEAKER) (test xrtq=073) 26.9 pg 25.7-32.2 MEAN CORPUSCULAR HEMOGLOBIN CONC (BEAKER) (test zfps=484) 29.6 GM/DL 32.3-36.5 RED CELL DISTRIBUTION WIDTH (BEAKER) (test jpmw=894) 18.1 % 11.6-14.4 PLATELET COUNT (BEAKER) (test qfyp=568) 297 K/CU MM 150-450 MEAN PLATELET VOLUME (BEAKER) (test tcwx=240) 11.0 fL 9.4-12.4 NUCLEATED RED BLOOD CELLS (BEAKER) (test wmhb=840) 0 /100 WBC 0-0 POCT-GLUCOSE [id number] 08:03:00* Test Item Value Reference Range Comments POC-GLUCOSE METER (BEAKER) (test akan=4316) 138 mg/dL 70-110 TESTED AT [facility] [address] [facility] [address] [id number] 07:25:00* Test Item Value Reference Range Comments PHOSPHORUS (BEAKER) (test wpbw=438) 3.3 mg/dL 2.3-4.7 [id number] 07:25:00* Test Item Value Reference Range Comments MAGNESIUM (BEAKER) (test lkgj=221) 1.5 mg/dL 1.6-2.6 BASIC METABOLIC [id number] 07:25:00* Test Item Value Reference Range Comments SODIUM (BEAKER) (test vkxq=350) 140 meq/L 136-145 POTASSIUM (BEAKER) (test tcls=629) 4.2 meq/L 3.5-5.1 CHLORIDE (BEAKER) (test hpez=130) 105 meq/L 98-107 CO2 (BEAKER) (test lbzp=496) 29 meq/L 22-29 BLOOD UREA NITROGEN (BEAKER) (test pldm=881) 8 mg/dL 7-21 CREATININE (BEAKER) (test pohm=969) 0.99 mg/dL 0.57-1.25 GLUCOSE RANDOM (BEAKER) (test vhvd=476) 136 mg/dL 70-105 CALCIUM (BEAKER) (test dvkb=632) 9.0 mg/dL 8.4-10.2 EGFR (BEAKER) (test dgqe=1837) 88 mL/min/1.73 sq m ESTIMATED GFR IS NOT ACCURATE CREATININE CLEARANCE IN PREDICTING GLOMERULAR FILTRATION RATE. ESTIMATED GFR IS NOT APPLICABLE FOR DIALYSIS PATIENTS. POCT-GLUCOSE [id number] 22:06:00* Test Item Value Reference Range Comments POC-GLUCOSE METER (BEAKER) (test nchn=7017) 212 mg/dL 70-110 TESTED AT [address] [address] BLOOD [id number] 18:00:00* Test Item Value Reference Range Comments CULTURE (BEAKER) (test ntuw=5382) No growth in 5 days POCT-GLUCOSE [id number] 17:19:00* Test Item Value Reference Range Comments POC-GLUCOSE METER (BEAKER) (test pmiu=6068) 266 mg/dL 70-110 TESTED AT [address] [address] POCT-GLUCOSE [id number] 12:10:00* Test Item Value Reference Range Comments POC-GLUCOSE METER (BEAKER) (test wtik=0399) 197 mg/dL 70-110 TESTED AT [address] [address] POCT-GLUCOSE [id number] 07:46:00* Test Item Value Reference Range Comments POC-GLUCOSE METER (BEAKER) (test zbfm=9967) 160 mg/dL 70-110 TESTED AT [address] [address] CBC W/PLT COUNT & AUTO [id number] 05:57:00* Test Item Value Reference Range Comments WHITE BLOOD CELL COUNT (BEAKER) (test wrnv=072) 8.3 K/ L 3.5-10.5 RED BLOOD CELL COUNT (BEAKER) (test vjdn=164) 4.64 M/ L 4.63-6.08 HEMOGLOBIN (BEAKER) (test mtph=465) 12.7 GM/DL 13.7-17.5 HEMATOCRIT (BEAKER) (test ktqe=934) 41.9 % 40.1-51.0 MEAN CORPUSCULAR VOLUME (BEAKER) (test ljwi=138) 90.3 fL 79.0-92.2 MEAN CORPUSCULAR HEMOGLOBIN (BEAKER) (test euay=195) 27.4 pg 25.7-32.2 MEAN CORPUSCULAR HEMOGLOBIN CONC (BEAKER) (test nzak=599) 30.3 GM/DL 32.3-36.5 RED CELL DISTRIBUTION WIDTH (BEAKER) (test ryzo=196) 18.4 % 11.6-14.4 PLATELET COUNT (BEAKER) (test jrea=627) 266 K/CU MM 150-450 MEAN PLATELET VOLUME (BEAKER) (test abuu=631) 11.3 fL 9.4-12.4 NUCLEATED RED BLOOD CELLS (BEAKER) (test ksat=813) 0 /100 WBC 0-0 NEUTROPHILS RELATIVE PERCENT (BEAKER) (test rmsr=795) 46 % LYMPHOCYTES RELATIVE PERCENT (BEAKER) (test jhvx=678) 24 % MONOCYTES RELATIVE PERCENT (BEAKER) (test boji=898) 16 % EOSINOPHILS RELATIVE PERCENT (BEAKER) (test zzzl=437) 12 % BASOPHILS RELATIVE PERCENT (BEAKER) (test nerk=292) 1 % NEUTROPHILS ABSOLUTE COUNT (BEAKER) (test nhdr=329) 3.83 K/ L 1.78-5.38 LYMPHOCYTES ABSOLUTE COUNT (BEAKER) (test awwk=149) 1.99 K/ L 1.32-3.57 MONOCYTES ABSOLUTE COUNT (BEAKER) (test push=072) 1.36 K/ L 0.30-0.82 EOSINOPHILS ABSOLUTE COUNT (BEAKER) (test qdmg=428) 0.99 K/ L 0.04-0.54 BASOPHILS ABSOLUTE COUNT (BEAKER) (test jxrk=491) 0.06 K/ L 0.01-0.08 IMMATURE GRANULOCYTES-RELATIVE PERCENT (BEAKER) (test euto=8163) 1 % 0-1 [id number] 05:43:00* Test Item Value Reference Range Comments PHOSPHORUS (BEAKER) (test pddw=101) 2.3 mg/dL 2.3-4.7 [id number] 05:43:00* Test Item Value Reference Range Comments MAGNESIUM (BEAKER) (test tabl=379) 1.5 mg/dL 1.6-2.6 BASIC METABOLIC [id number] 05:43:00* Test Item Value Reference Range Comments SODIUM (BEAKER) (test yxrj=326) 139 meq/L 136-145 POTASSIUM (BEAKER) (test dvgr=235) 4.0 meq/L 3.5-5.1 CHLORIDE (BEAKER) (test xwyh=170) 105 meq/L 98-107 CO2 (BEAKER) (test dkwx=713) 28 meq/L 22-29 BLOOD UREA NITROGEN (BEAKER) (test lanh=626) 8 mg/dL 7-21 CREATININE (BEAKER) (test wpgy=210) 0.88 mg/dL 0.57-1.25 GLUCOSE RANDOM (BEAKER) (test azwk=829) 150 mg/dL 70-105 CALCIUM (BEAKER) (test mfor=231) 9.2 mg/dL 8.4-10.2 EGFR (BEAKER) (test txms=7390) 101 mL/min/1.73 sq m ESTIMATED GFR IS NOT ACCURATE CREATININE CLEARANCE IN PREDICTING GLOMERULAR FILTRATION RATE. ESTIMATED GFR IS NOT APPLICABLE FOR DIALYSIS PATIENTS. POCT-GLUCOSE [id number] 22:12:00* Test Item Value Reference Range Comments POC-GLUCOSE METER (BEAKER) (test oxyd=3848) 211 mg/dL 70-110 TESTED AT [address] [address] POCT-GLUCOSE [id number] 17:54:00* Test Item Value Reference Range Comments POC-GLUCOSE METER (BEAKER) (test pwnp=7725) 198 mg/dL 70-110 TESTED AT [address] [address] POCT-GLUCOSE [id number] 15:10:00* Test Item Value Reference Range Comments POC-GLUCOSE METER (BEAKER) (test suoi=0693) 159 mg/dL 70-110 TESTED AT [address] [address] POCT-GLUCOSE [id number] 14:36:00* Test Item Value Reference Range Comments POC-GLUCOSE METER (BEAKER) (test qrnz=7308) 147 mg/dL 70-110 TESTED AT [address] [address] CBC W/PLT COUNT & AUTO [id number] 06:18:00* Test Item Value Reference Range Comments WHITE BLOOD CELL COUNT (BEAKER) (test ggvk=551) 14.2 K/ L 3.5-10.5 RED BLOOD CELL COUNT (BEAKER) (test rjxi=322) 4.41 M/ L 4.63-6.08 HEMOGLOBIN (BEAKER) (test pkbj=747) 12.0 GM/DL 13.7-17.5 HEMATOCRIT (BEAKER) (test vwfi=112) 39.5 % 40.1-51.0 MEAN CORPUSCULAR VOLUME (BEAKER) (test kadj=016) 89.6 fL 79.0-92.2 MEAN CORPUSCULAR HEMOGLOBIN (BEAKER) (test dyzd=182) 27.2 pg 25.7-32.2 MEAN CORPUSCULAR HEMOGLOBIN CONC (BEAKER) (test bvsh=098) 30.4 GM/DL 32.3-36.5 RED CELL DISTRIBUTION WIDTH (BEAKER) (test rnbc=969) 18.3 % 11.6-14.4 PLATELET COUNT (BEAKER) (test fkso=380) 266 K/CU MM 150-450 MEAN PLATELET VOLUME (BEAKER) (test hryk=132) 10.9 fL 9.4-12.4 NUCLEATED RED BLOOD CELLS (BEAKER) (test gnmi=227) 0 /100 WBC 0-0 NEUTROPHILS RELATIVE PERCENT (BEAKER) (test jbcv=579) 73 % LYMPHOCYTES RELATIVE PERCENT (BEAKER) (test rjyt=474) 13 % MONOCYTES RELATIVE PERCENT (BEAKER) (test lidf=585) 9 % EOSINOPHILS RELATIVE PERCENT (BEAKER) (test nxqo=770) 5 % BASOPHILS RELATIVE PERCENT (BEAKER) (test hagz=293) 0 % NEUTROPHILS ABSOLUTE COUNT (BEAKER) (test curw=751) 10.32 K/ L 1.78-5.38 LYMPHOCYTES ABSOLUTE COUNT (BEAKER) (test hjcu=386) 1.84 K/ L 1.32-3.57 MONOCYTES ABSOLUTE COUNT (BEAKER) (test tpkt=615) 1.25 K/ L 0.30-0.82 EOSINOPHILS ABSOLUTE COUNT (BEAKER) (test spfo=240) 0.71 K/ L 0.04-0.54 BASOPHILS ABSOLUTE COUNT (BEAKER) (test wedq=260) 0.05 K/ L 0.01-0.08 IMMATURE GRANULOCYTES-RELATIVE PERCENT (BEAKER) (test tfex=8732) 0 % 0-1 [id number] 06:11:00* Test Item Value Reference Range Comments PHOSPHORUS (BEAKER) (test vsxm=263) 2.4 mg/dL 2.3-4.7 [id number] 06:11:00* Test Item Value Reference Range Comments MAGNESIUM (BEAKER) (test uuzx=080) 1.5 mg/dL 1.6-2.6 BASIC METABOLIC [id number] 06:11:00* Test Item Value Reference Range Comments SODIUM (BEAKER) (test dsjs=597) 138 meq/L 136-145 POTASSIUM (BEAKER) (test ovly=487) 4.2 meq/L 3.5-5.1 CHLORIDE (BEAKER) (test hvdn=759) 104 meq/L 98-107 CO2 (BEAKER) (test rrmo=935) 27 meq/L 22-29 BLOOD UREA NITROGEN (BEAKER) (test yizz=179) 9 mg/dL 7-21 CREATININE (BEAKER) (test hdip=665) 0.72 mg/dL 0.57-1.25 GLUCOSE RANDOM (BEAKER) (test juma=868) 153 mg/dL 70-105 CALCIUM (BEAKER) (test gzwa=723) 9.0 mg/dL 8.4-10.2 EGFR (BEAKER) (test acwg=0445) 128 mL/min/1.73 sq m ESTIMATED GFR IS NOT ACCURATE CREATININE CLEARANCE IN PREDICTING GLOMERULAR FILTRATION RATE. ESTIMATED GFR IS NOT APPLICABLE FOR DIALYSIS PATIENTS. HEPATIC FUNCTION [id number] 06:11:00* Test Item Value Reference Range Comments TOTAL PROTEIN (BEAKER) (test extf=445) 6.8 gm/dL 6.0-8.3 ALBUMIN (BEAKER) (test sebt=2399) 2.5 g/dL 3.5-5.0 BILIRUBIN TOTAL (BEAKER) (test wqhd=237) 0.2 mg/dL 0.2-1.2 BILIRUBIN DIRECT (BEAKER) (test trer=102) 0.1 mg/dL 0.1-0.5 ALKALINE PHOSPHATASE (BEAKER) (test gkre=617) 98 U/L 40-150 AST (SGOT) (BEAKER) (test avdw=348) 21 U/L 5-34 ALT (SGPT) (BEAKER) (test onvh=866) 16 U/L 6-55 BLOOD [id number] 05:17:00* Test Item Value Reference Range Comments CULTURE (BEAKER) (test wjfl=6621) ESCHERICHIA COLI From Aerobic And Anaerobic Bottles Escherichia coli Amikacin (test code=1) Ampicillin + Sulbactam (test code=6) Aztreonam (test code=32) Cefepime (test code=51) Cefoxitin (test code=68) Ceftazidime (test code=27) Ceftriaxone (test code=52) Ertapenem (test code=38) Gentamicin (test code=18) Levofloxacin (test code=22) Meropenem (test code=34) Nitrofurantoin (test code=23) Piperacillin + Tazobactam (test code=29) Tetracycline (test code=2) Tobramycin (test code=25) Trimethoprim + Sulfamethoxazole (test code=47) GRAM STAIN RESULT (BEAKER) (test jvpb=2620) From aerobic and anaerobic bottles: gram negative rods ESCHERICHIA COLI DETECTEDKPC (a carbapenamase gene) not detectedFirst line thera py: meropenem. De-escalate based on susceptibilitiesThis test does not evaluate for ESBLOther organisms and resistance markers not contained in this PCR panel c annot be excluded and follow-up of traditional culture results is required. This sample was tested at the [facility] Clinical Microbiology Laboratory using the [employer] Blood Culture ID Panel. This test is FDA cleared for in vitro diagn ostic use and has been verified and approved by the [facility] Clinical Microbiology laboratory for clinical use. Reference Range: Not DetectedU/S, ABDOMINAL, [id number] 04:48:00Abdomen limited area? Add comment if clarification is needed.->Right upper quadrantReason for exam:->e coli bacteremia, cholelithiasis FINAL REPORT Exam: Limited abdominal ultrasound. Clinica l History: e coli bacteremia, cholelithiasis . Comparison: No prior study for d irect comparison. Correlation is made with abdominal CT 03/06/2018. Findings: Son ographic evaluation of the right upper quadrant of the abdomen was performed. Li arnol: 19.2 cm in length at the right midclavicular line. Increased echogenicit y. No lesion is identified by ultrasound. Main portal vein is patent measuri ng 1.2 in diameter, and demonstrates hepatopetal flow. Biliary tree: Common chip t 7 mm. No intrahepatic biliary ductal dilatation. Gallbladder: Multiple shado wing gallstones. Top normal gallbladder wall thickening measuring 3 mm, nonspeci fic. No pericholecystic fluid. Negative sonographic Dawson's sign. Pancreas: 1 .5 x 1.4 x 1.4 cm ill-defined hypoechoic structure in the region of the pancreat ic head without associated vascularity. The remainder of the visualized pancreas is partially obscured by bowel gas but otherwise unremarkable. Ascites: None s een. Right kidney: 13.5 x 6.4 x 6 with cortical thickness of 1.4 cm. Normal co rtical echogenicity. 2.5 x 2.4 x 2.3 cm interpolar cyst. No shadowing calculus . No hydronephrosis. IVC/Aorta: Segments partially seen. Unremarkable. Impres jessika:Cholelithiasis without sonographic evidence for acute cholecystitis.Hepatom egaly. Echogenic liver which may be seen with parenchymal disease such as fatty infiltration.1.6 cm ill-defined hypoechoic structure in the region of the pancre atic head, not well delineated on the current exam but may represent small cyst with calcification in the pancreatic head seen on recent CT. Further evaluation with a nonemergent pancreatic protocol MRI would be helpful and may be performed as clinically warranted.Small right renal cyst. Signed: Gracie Esquiveleport Verified Date/Time: 03/10/2018 04:48:12 Reading Location[address] Electronically signed by: GRACIE ESQUIVEL MD on 02/15 04:48 AM POCT-GLUCOSE [id number] 23:21:00* Test Item Value Reference Range Comments POC-GLUCOSE METER (BEAKER) (test wbsa=6364) 159 mg/dL 70-110 TESTED AT [address] [address] POCT-GLUCOSE [id number] 17:53:00* Test Item Value Reference Range Comments POC-GLUCOSE METER (BEAKER) (test uvgc=3962) 197 mg/dL 70-110 TESTED AT [address] [address] MISCELLANEOUS LAB [id number] 15:25:00* Test Item Value Reference Range Comments SCAN RESULT (test axrd=[id number]) Result comments: ESCHERICHIA COLI DETECTED KPC (a carbapenamase gene) not detect ed First line therapy: meropenem. De-escalate based on susceptibilities This nanci t does not evaluate for ESBL Other organisms and resistance markers not containe d in this PCR panel cannot be excluded and follow-up of traditional culture resu lts is required. This sample was tested at the [facility] Clinical Microbiology Labor atory using the [employer] Blood Culture ID Panel. This test is FDA clear ed for in vitro diagnostic use and has been verified and approved by the [facility] use. Reference Range: Not Detected POCT-GLUCOSE [id number] 12:03:00* Test Item Value Reference Range Comments POC-GLUCOSE METER (BEAKER) (test biee=4397) 169 mg/dL 70-110 TESTED AT [facility] [address] [facility] [address] VANCOMYCIN LEVEL, [id number] 10:00:00* Test Item Value Reference Range Comments VANCOMYCIN TROUGH (BEAKER) (test ivyh=059) 20.7 ug/mL 10.0-20.0 URINE [id number] 09:18:00* Test Item Value Reference Range Comments CULTURE (BEAKER) (test qrbs=5096) ENTEROCOCCUS SPECIES >100,000 col/mL Enterococcus species Ampicillin (test code=26) Linezolid (test code=40) Nitrofurantoin (test code=23) Tetracycline (test code=2) Vancomycin (test code=13) CBC W/PLT COUNT & AUTO [id number] 08:55:00* Test Item Value Reference Range Comments WHITE BLOOD CELL COUNT (BEAKER) (test bora=471) 24.7 K/ L 3.5-10.5 RED BLOOD CELL COUNT (BEAKER) (test iazg=784) 4.43 M/ L 4.63-6.08 HEMOGLOBIN (BEAKER) (test ztvg=402) 11.9 GM/DL 13.7-17.5 HEMATOCRIT (BEAKER) (test ywft=843) 39.4 % 40.1-51.0 MEAN CORPUSCULAR VOLUME (BEAKER) (test pqpr=103) 88.9 fL 79.0-92.2 MEAN CORPUSCULAR HEMOGLOBIN (BEAKER) (test goor=724) 26.9 pg 25.7-32.2 MEAN CORPUSCULAR HEMOGLOBIN CONC (BEAKER) (test vhxy=244) 30.2 GM/DL 32.3-36.5 RED CELL DISTRIBUTION WIDTH (BEAKER) (test ibbj=115) 18.4 % 11.6-14.4 PLATELET COUNT (BEAKER) (test fmkd=648) 242 K/CU MM 150-450 MEAN PLATELET VOLUME (BEAKER) (test lfpw=838) 11.0 fL 9.4-12.4 NUCLEATED RED BLOOD CELLS (BEAKER) (test irst=119) 0 /100 WBC 0-0 POCT-GLUCOSE [id number] 07:52:00* Test Item Value Reference Range Comments POC-GLUCOSE METER (BEAKER) (test vsyz=4847) 154 mg/dL 70-110 TESTED AT [facility] [address] [facility] [address] [id number] 05:39:00* Test Item Value Reference Range Comments PHOSPHORUS (BEAKER) (test mjrc=801) 2.6 mg/dL 2.3-4.7 [id number] 05:39:00* Test Item Value Reference Range Comments MAGNESIUM (BEAKER) (test bbkl=731) 1.9 mg/dL 1.6-2.6 BASIC METABOLIC [id number] 05:39:00* Test Item Value Reference Range Comments SODIUM (BEAKER) (test ncob=169) 139 meq/L 136-145 POTASSIUM (BEAKER) (test duks=354) 4.8 meq/L 3.5-5.1 CHLORIDE (BEAKER) (test cnls=212) 105 meq/L 98-107 CO2 (BEAKER) (test nild=600) 30 meq/L 22-29 BLOOD UREA NITROGEN (BEAKER) (test lcrk=672) 14 mg/dL 7-21 CREATININE (BEAKER) (test pnve=065) 0.73 mg/dL 0.57-1.25 GLUCOSE RANDOM (BEAKER) (test amod=691) 104 mg/dL 70-105 CALCIUM (BEAKER) (test vuwj=247) 8.9 mg/dL 8.4-10.2 EGFR (BEAKER) (test xtma=5647) 126 mL/min/1.73 sq m ESTIMATED GFR IS NOT ACCURATE CREATININE CLEARANCE IN PREDICTING GLOMERULAR FILTRATION RATE. ESTIMATED GFR IS NOT APPLICABLE FOR DIALYSIS PATIENTS. POCT-GLUCOSE [id number] 23:38:00* Test Item Value Reference Range Comments POC-GLUCOSE METER (BEAKER) (test gilr=9616) 211 mg/dL 70-110 TESTED AT [facility] [address] [facility] [address] CBC W/PLT COUNT & AUTO [id number] 12:39:00* Test Item Value Reference Range Comments WHITE BLOOD CELL COUNT (BEAKER) (test bmgm=245) 28.9 K/ L 3.5-10.5 RED BLOOD CELL COUNT (BEAKER) (test xlbp=527) 4.48 M/ L 4.63-6.08 HEMOGLOBIN (BEAKER) (test ghfi=086) 12.3 GM/DL 13.7-17.5 HEMATOCRIT (BEAKER) (test xjzq=503) 39.2 % 40.1-51.0 MEAN CORPUSCULAR VOLUME (BEAKER) (test gceu=640) 87.5 fL 79.0-92.2 MEAN CORPUSCULAR HEMOGLOBIN (BEAKER) (test vcma=607) 27.5 pg 25.7-32.2 MEAN CORPUSCULAR HEMOGLOBIN CONC (BEAKER) (test ikit=675) 31.4 GM/DL 32.3-36.5 RED CELL DISTRIBUTION WIDTH (BEAKER) (test rvpg=361) 18.4 % 11.6-14.4 PLATELET COUNT (BEAKER) (test nndg=395) 198 K/CU MM 150-450 MEAN PLATELET VOLUME (BEAKER) (test gpqn=342) 10.8 fL 9.4-12.4 NUCLEATED RED BLOOD CELLS (BEAKER) (test tfqd=509) 0 /100 WBC 0-0 POCT-GLUCOSE [id number] 11:47:00* Test Item Value Reference Range Comments POC-GLUCOSE METER (BEAKER) (test itxo=1296) 175 mg/dL 70-110 TESTED AT [facility] [address] [facility] [address] RESPIRATORY PANEL [id number] 11:31:00* Test Item Value Reference Range Comments HUMAN METAPNEUMOVIRUS (BEAKER) (test htqu=2429) Detected Not detected, Inconclusive RHINOVIRUS (BEAKER) (test kcnh=1095) Not detected Not detected, Inconclusive INFLUENZA A (BEAKER) (test fetn=5428) Not detected Not detected, Inconclusive INFLUENZA A SUBTYPE H1 (BEAKER) (test ypbw=8732) Not detected Not detected, Inconclusive INFLUENZA A SUBTYPE H3 (BEAKER) (test gjmt=8990) Not detected Not detected, Inconclusive INFLUENZA A SUBTYPE H1-2009 (BEAKER) (test rvit=6426) Not detected Not detected, Inconclusive INFLUENZA B (BEAKER) (test nsiy=2382) Not detected Not detected, Inconclusive RESPIRATORY SYNCYTIAL VIRUS (BEAKER) (test zdld=7864) Not detected Not detected, Inconclusive PARAINFLUENZA VIRUS 1 (BEAKER) (test hydt=0506) Not detected Not detected, Inconclusive PARAINFLUENZA VIRUS 2 (BEAKER) (test bfzy=1422) Not detected Not detected, Inconclusive PARAINFLUENZA VIRUS 3 (BEAKER) (test hqae=2911) Not detected Not detected, Inconclusive PARAINFLUENZA VIRUS 4 (BEAKER) (test fbln=0742) Not detected Not detected, Inconclusive ADENOVIRUS (BEAKER) (test tuwf=3069) Not detected Not detected, Inconclusive CORONAVIRUS 229E (BEAKER) (test dnlm=3291) Not detected Not detected, Inconclusive CORONAVIRUS HKU1 (BEAKER) (test doml=0844) Not detected Not detected, Inconclusive CORONAVIRUS NL63 (BEAKER) (test wzxo=1350) Not detected Not detected, Inconclusive CORONAVIRUS OC43 (BEAKER) (test ttol=2495) Not detected Not detected, Inconclusive BORDETELLA PERTUSSIS (BEAKER) (test pflr=7414) Not detected Not detected, Inconclusive CHLAMYDOPHILA PNEUMONIAE (BEAKER) (test bgdl=6348) Not detected Not detected, Inconclusive MYCOPLASMA PNEUMONIAE (BEAKER) (test svvf=0862) Not detected Not detected, Inconclusive POCT-GLUCOSE [id number] 07:53:00* Test Item Value Reference Range Comments POC-GLUCOSE METER (BEAKER) (test dmpb=8129) 105 mg/dL 70-110 TESTED AT [facility] [address] [facility] [address] [id number] 04:58:00* Test Item Value Reference Range Comments PHOSPHORUS (BEAKER) (test iixy=790) 2.5 mg/dL 2.3-4.7 [id number] 04:58:00* Test Item Value Reference Range Comments MAGNESIUM (BEAKER) (test ffvj=684) 2.2 mg/dL 1.6-2.6 BASIC METABOLIC [id number] 04:58:00* Test Item Value Reference Range Comments SODIUM (BEAKER) (test qmqa=874) 138 meq/L 136-145 POTASSIUM (BEAKER) (test wuok=602) 4.0 meq/L 3.5-5.1 CHLORIDE (BEAKER) (test mgql=012) 104 meq/L 98-107 CO2 (BEAKER) (test kevi=111) 28 meq/L 22-29 BLOOD UREA NITROGEN (BEAKER) (test kctd=897) 21 mg/dL 7-21 CREATININE (BEAKER) (test kdqq=732) 0.83 mg/dL 0.57-1.25 GLUCOSE RANDOM (BEAKER) (test ryvy=193) 112 mg/dL 70-105 CALCIUM (BEAKER) (test xdma=776) 8.5 mg/dL 8.4-10.2 EGFR (BEAKER) (test mfgb=7375) 108 mL/min/1.73 sq m ESTIMATED GFR IS NOT ACCURATE CREATININE CLEARANCE IN PREDICTING GLOMERULAR FILTRATION RATE. ESTIMATED GFR IS NOT APPLICABLE FOR DIALYSIS PATIENTS. LACTIC ACID, VENOUS, WHOLE [id number] 04:55:00* Test Item Value Reference Range Comments LACTATE BLOOD VENOUS (2) (BEAKER) (test cwha=4370) 1.3 mmol/L 0.5-2.2 Effective 03/19/2016: Units/Reference Range ChangeNew: 0.5-2.2 mmol/L Previous: 5 -20 mg/dLU/S, EXTREMITY (NON-VASCULAR), LEFT, [id number] 04:07:00Reason for exam:->r/o abscessL posterior thighFINAL REPORT U/S, EXTREMITY (NON-VASCULAR), LEFT, LIMITED CLINICAL INDICATION: r/o abscess COMPARISON: None FINDINGS/IMPRESSION: Ultrasound targeted area of concern in the left posterior thigh was performed. There is diffuse subcutaneous edema. There are small pockets of fluid within the subcutaneous tissues; the largest measures 4.9 x 2 x 1.4 cm. There is no associated hyperemia. Signed: Gracie Esquivel Verified Date/Time: 03/08/2018 04:07:45 Reading Location: [address] Transitional Reading Room -GLUCOSE [id number] 02:07:00* Test Item Value Reference Range Comments POC-GLUCOSE METER (BEAKER) (test iqzg=3088) 110 mg/dL 70-110 TESTED AT [facility] [address] [facility] [address] POCT-GLUCOSE [id number] 22:25:00* Test Item Value Reference Range Comments POC-GLUCOSE METER (BEAKER) (test fvhf=1745) 168 mg/dL 70-110 TESTED AT [facility] [address] [facility] [address] POCT-GLUCOSE [id number] 18:05:00* Test Item Value Reference Range Comments POC-GLUCOSE METER (BEAKER) (test axjt=1133) 90 mg/dL 70-110 TESTED AT [place] [id number] [facility] [address] VANCOMYCIN LEVEL, [id number] 15:50:00* Test Item Value Reference Range Comments VANCOMYCIN TROUGH (BEAKER) (test reyl=667) 20.0 ug/mL 10.0-20.0 CBC W/PLT COUNT & AUTO [id number] 14:27:00* Test Item Value Reference Range Comments WHITE BLOOD CELL COUNT (BEAKER) (test knao=830) 30.5 K/ L 3.5-10.5 RED BLOOD CELL COUNT (BEAKER) (test ayak=815) 4.20 M/ L 4.63-6.08 HEMOGLOBIN (BEAKER) (test unmv=033) 11.7 GM/DL 13.7-17.5 HEMATOCRIT (BEAKER) (test feum=107) 37.2 % 40.1-51.0 MEAN CORPUSCULAR VOLUME (BEAKER) (test tvfo=041) 88.6 fL 79.0-92.2 MEAN CORPUSCULAR HEMOGLOBIN (BEAKER) (test juhd=562) 27.9 pg 25.7-32.2 MEAN CORPUSCULAR HEMOGLOBIN CONC (BEAKER) (test glun=961) 31.5 GM/DL 32.3-36.5 RED CELL DISTRIBUTION WIDTH (BEAKER) (test novs=475) 18.5 % 11.6-14.4 PLATELET COUNT (BEAKER) (test zqfg=546) 214 K/CU MM 150-450 MEAN PLATELET VOLUME (BEAKER) (test hwde=871) 10.8 fL 9.4-12.4 NUCLEATED RED BLOOD CELLS (BEAKER) (test bmyj=896) 0 /100 WBC 0-0 HEPATIC FUNCTION [id number] 12:11:00* Test Item Value Reference Range Comments TOTAL PROTEIN (BEAKER) (test wqbz=325) 6.1 gm/dL 6.0-8.3 ALBUMIN (BEAKER) (test vfbx=4080) 2.4 g/dL 3.5-5.0 BILIRUBIN TOTAL (BEAKER) (test hpdw=180) 0.5 mg/dL 0.2-1.2 BILIRUBIN DIRECT (BEAKER) (test caqw=581) 0.3 mg/dL 0.1-0.5 ALKALINE PHOSPHATASE (BEAKER) (test kjpt=128) 75 U/L 40-150 AST (SGOT) (BEAKER) (test cxzj=268) 60 U/L 5-34 ALT (SGPT) (BEAKER) (test vtrs=273) 32 U/L 6-55 POCT-GLUCOSE [id number] 12:07:00* Test Item Value Reference Range Comments POC-GLUCOSE METER (BEAKER) (test zmue=3441) 76 mg/dL 70-110 TESTED AT [facility] [address] [facility] [address] POCT-GLUCOSE [id number] 08:31:00* Test Item Value Reference Range Comments POC-GLUCOSE METER (BEAKER) (test aanw=1660) 102 mg/dL 70-110 TESTED AT [address] [address] BASIC METABOLIC [id number] 06:47:00* Test Item Value Reference Range Comments SODIUM (BEAKER) (test tmvl=138) 138 meq/L 136-145 POTASSIUM (BEAKER) (test cgrx=994) 4.3 meq/L 3.5-5.1 CHLORIDE (BEAKER) (test fhin=021) 106 meq/L 98-107 CO2 (BEAKER) (test ldno=811) 25 meq/L 22-29 BLOOD UREA NITROGEN (BEAKER) (test dqbm=015) 22 mg/dL 7-21 CREATININE (BEAKER) (test orzs=043) 1.06 mg/dL 0.57-1.25 GLUCOSE RANDOM (BEAKER) (test vmls=530) 65 mg/dL 70-105 CALCIUM (BEAKER) (test sdir=786) 7.9 mg/dL 8.4-10.2 EGFR (BEAKER) (test zpde=4123) 82 mL/min/1.73 sq m ESTIMATED GFR IS NOT ACCURATE CREATININE CLEARANCE IN PREDICTING GLOMERULAR FILTRATION RATE. ESTIMATED GFR IS NOT APPLICABLE FOR DIALYSIS PATIENTS. [id number] 06:46:00* Test Item Value Reference Range Comments PHOSPHORUS (BEAKER) (test glcy=143) 3.9 mg/dL 2.3-4.7 [id number] 06:46:00* Test Item Value Reference Range Comments MAGNESIUM (BEAKER) (test fuzo=496) 1.9 mg/dL 1.6-2.6 LACTIC ACID, VENOUS, WHOLE [id number] 06:18:00* Test Item Value Reference Range Comments LACTATE BLOOD VENOUS (2) (BEAKER) (test pdta=3290) 2.3 mmol/L 0.5-2.2 Effective 03/19/2016: Units/Reference Range ChangeNew: 0.5-2.2 mmol/L Previous: 5 -20 mg/dLPOCT-GLUCOSE [id number] 06:04:00* Test Item Value Reference Range Comments POC-GLUCOSE METER (BEAKER) (test ssny=0776) 74 mg/dL 70-110 TESTED AT [facility] [address] [facility] [address] POCT-GLUCOSE [id number] 05:38:00* Test Item Value Reference Range Comments POC-GLUCOSE METER (BEAKER) (test rjge=4534) 68 mg/dL 70-110 TESTED AT [place] [id number] [facility] [address] [id number] 23:57:00* Test Item Value Reference Range Comments PHOSPHORUS (BEAKER) (test smyq=817) 3.8 mg/dL 2.3-4.7 [id number] 23:57:00* Test Item Value Reference Range Comments MAGNESIUM (BEAKER) (test zwgw=987) 1.8 mg/dL 1.6-2.6 BASIC METABOLIC [id number] 23:57:00* Test Item Value Reference Range Comments SODIUM (BEAKER) (test iujo=159) 137 meq/L 136-145 POTASSIUM (BEAKER) (test jhtx=650) 3.7 meq/L 3.5-5.1 CHLORIDE (BEAKER) (test kpum=748) 103 meq/L 98-107 CO2 (BEAKER) (test ngms=103) 24 meq/L 22-29 BLOOD UREA NITROGEN (BEAKER) (test lepq=418) 21 mg/dL 7-21 CREATININE (BEAKER) (test dmjf=798) 1.28 mg/dL 0.57-1.25 GLUCOSE RANDOM (BEAKER) (test wuwx=898) 67 mg/dL 70-105 CALCIUM (BEAKER) (test tqob=306) 8.5 mg/dL 8.4-10.2 EGFR (BEAKER) (test veyl=9128) 66 mL/min/1.73 sq m ESTIMATED GFR IS NOT ACCURATE CREATININE CLEARANCE IN PREDICTING GLOMERULAR FILTRATION RATE. ESTIMATED GFR IS NOT APPLICABLE FOR DIALYSIS PATIENTS. POCT-GLUCOSE [id number] 23:14:00* Test Item Value Reference Range Comments POC-GLUCOSE METER (BEAKER) (test khqp=5616) 81 mg/dL 70-110 TESTED AT [address] [address] HEMOGLOBIN [id number] 22:48:00* Test Item Value Reference Range Comments HEMOGLOBIN A1C (BEAKER) (test ddvs=432) 6.5 % 4.3-6.1 LACTIC ACID, VENOUS, WHOLE [id number] 21:06:00* Test Item Value Reference Range Comments LACTATE BLOOD VENOUS (2) (BEAKER) (test aleg=5792) 2.0 mmol/L 0.5-2.2 Effective 03/19/2016: Units/Reference Range ChangeNew: 0.5-2.2 mmol/L Previous: 5 -20 mg/dLLACTIC ACID, VENOUS, WHOLE [id number] 19:27:00* Test Item Value Reference Range Comments LACTATE BLOOD VENOUS (2) (BEAKER) (test cdlj=1387) 2.2 mmol/L 0.5-2.2 Specimen moderately hemolyzed Effective 03/19/2016: Units/Reference Range ChangeNew: 0.5-2.2 mmol/L Previous: 5 -20 mg/dLPOCT-GLUCOSE [id number] 19:09:00* Test Item Value Reference Range Comments POC-GLUCOSE METER (BEAKER) (test vjsi=0298) 116 mg/dL 70-110 TESTED AT [facility] [address] [facility] [address] OXYGEN SATURATION, [id number] 18:59:00* Test Item Value Reference Range Comments O2 SATURATION (MEASURED) (BEAKER) (test gwwn=5302) 52.3 % If patient has internal jugular ( IJ) or subclavian central line or PICC line. D raw from distal port. Label as central venous oxygen.B-TYPE NATRIURETIC FACTOR (BNP)2018-03-06 18:08:00* Test Item Value Reference Range Comments B-TYPE NATRIURETIC PEPTIDE (BEAKER) (test yehl=540) 98 pg/mL 0-100 RAPID INFLUENZA A&B [id number] 18:05:00* Test Item Value Reference Range Comments RAPID INFLUENZA A AG (BEAKER) (test rajx=0613) Negative Negative, Inconclusive RAPID INFLUENZA B AG (BEAKER) (test hhgg=4511) Negative Negative, Inconclusive URINALYSIS W/ [id number] 18:02:00* Test Item Value Reference Range Comments COLOR (BEAKER) (test bypv=387) Yellow CLARITY (BEAKER) (test rwhl=020) Hazy SPECIFIC GRAVITY UA (BEAKER) (test frvl=660) 1.050 1.001-1.035 PH UA (BEAKER) (test fljw=155) 5.5 5.0-8.0 PROTEIN UA (BEAKER) (test dhko=078) 100 mg/dL Negative GLUCOSE UA (BEAKER) (test scyf=366) 30 mg/dL Negative KETONES UA (BEAKER) (test qqjs=660) Trace Negative BILIRUBIN UA (BEAKER) (test tvmn=207) Positive Negative BLOOD UA (BEAKER) (test kxfx=701) Large Negative NITRITE UA (BEAKER) (test beot=185) Negative Negative LEUKOCYTE ESTERASE UA (BEAKER) (test uqox=056) Large Negative UROBILINOGEN UA (BEAKER) (test cikx=580) 3.0 mg/dL 0.2-1.0 RBC UA (BEAKER) (test kdmy=646) 155 /HPF WBC UA (BEAKER) (test yyui=279) > /HPF MUCUS (BEAKER) (test ipgi=1848) Rare SQUAMOUS EPITHELIAL (BEAKER) (test zzft=158) 5 /HPF SOURCE(BEAKER) (test oojj=8190) Urine, Voided CREATINE KINASE (CK), TOTAL AND [id number] 17:52:00* Test Item Value Reference Range Comments CREATINE KINASE TOTAL (BEAKER) (test viwt=010) 39 U/L 29-200 CREATINE KINASE-MB (BEAKER) (test sqwi=108) 0.8 ng/mL 0.0-6.6 CREATINE KINASE-MB INDEX (BEAKER) (test aonu=045) 2.1 % CK-MB Reference Range:<6.7 Normal6.7-10.0 Borderline>10.0 Abnormal [id number] 17:52:00* Test Item Value Reference Range Comments LIPASE (BEAKER) (test spxk=542) 13 U/L 8-78 HEPATIC FUNCTION [id number] 17:52:00* Test Item Value Reference Range Comments TOTAL PROTEIN (BEAKER) (test fdyq=479) 6.4 gm/dL 6.0-8.3 ALBUMIN (BEAKER) (test wykf=1478) 2.5 g/dL 3.5-5.0 BILIRUBIN TOTAL (BEAKER) (test ehqj=068) 0.8 mg/dL 0.2-1.2 BILIRUBIN DIRECT (BEAKER) (test jndv=019) 0.5 mg/dL 0.1-0.5 ALKALINE PHOSPHATASE (BEAKER) (test vqbv=236) 91 U/L 40-150 AST (SGOT) (BEAKER) (test egvn=260) 39 U/L 5-34 ALT (SGPT) (BEAKER) (test eeae=099) 15 U/L 6-55 TROPONIN [id number] 17:48:00* Test Item Value Reference Range Comments TROPONIN I (BEAKER) (test sgdm=972) 0.11 ng/mL 0.00-0.03 Troponin I (TnI) levels must be interpreted in the context of the presenting sym ptoms and the clinical findings. Elevated TnI levels indicate myocardial damage, but are not specific for ischemic heart disease. Elevated TnI levels are seen in patients with other cardiac conditions (including myocarditis and congestive h eart failure), and slight TnI elevations occur in patients with other conditions , including sepsis, renal failure, acidosis, acute neurological disease, and per sistent tachyarrhythmia.RAD, CHEST, 1 VIEW, NON [id number] 17:26:00Reason for exam:->FATIGUEReason for exam:->WOUND CHECKShould this be performed at the bedside?->YesFINAL REPORT History: Fatigue. Comparison: None. Findings: A single view of the chest is submitted. The examination is limited by low lung volumes and patient body habitus. The cardiac silhouette is within normal limits for size. There is atherosclerotic calcification of the ectatic aorta. There is central pulmonary vascular congestion. Diffuse interstitial opacities suggest pulmonary interstitial edema. There is no focal consolidation, pneumothorax, large pleural effusion or acute bony abnormality. Signed: Jerome Lopez MDReport Verified Date/Time: 03/06/2018 17:26:13 Reading Location: [address] [address] [facility] IC ACID, VENOUS, WHOLE BLOOD 2018-03-06 16:31:00* Test Item Value Reference Range Comments LACTATE BLOOD VENOUS (2) (BEAKER) (test gbov=8969) 2.8 mmol/L 0.5-2.2 Specimen slightly hemolyzed Effective 03/19/2016: Units/Reference Range ChangeNew: 0.5-2.2 mmol/L Previous: 5 -20 mg/dLCT, [id number] 16:20:00Reason for exam:->pelvic painReason for exam:->buttock wound (bilateral)Reason for exam:->Include proximal bilateral lower extremities to mid-thighWhat is the patient's sedation requirement?->No SedationFINAL REPORT INDICATION:77-year-old male with fever, abdominal pain, and buttocks wound. COMPARISON: None. TECHNIQUE: CT of the Abdomen and Pelvis WITH intravenous contrast. Enteric contrast was not used. The exam was performed according to our department dose-optimization protocol, which includes automated exposure control, adjustments of mA and kV according to patient size. Iterative reconstructions are also sometimes employed. FINDINGS:Several stones are present in the gallbladder including a 4 cm stone in the gallbladder neck. Gallbladder is not distended and there is no inflammatory change on the gallbladder. There is no biliary ductal dilatation. At the ampulla there are three tiny stones each measuring approximately 1 mm. No pancreatic parenchymal calcification or pancreatic ductal dilatation is demonstrated. In the head of the pancreas there is a thin-walled 1 cm cyst with a punctate calcification of the cyst wall. No pancreatic mass is demonstrated. No pancreatic atrophy. Liver and spleen are unremarkable. No upper abdominal lymphadenopathy. Adrenal glands unremarkable. Kidneys enhance symmetrically and there is no suspicious renal lesion or hydronephrosis. Bilateral cortical cyst and nonspecific perinephric stranding noted. Bladder is collapsed and therefore not evaluated. Coarse calcification of the prostate gland noted. Prostate gland not enlarged. No pelvic or retroperitoneal lymphadenopathy. There is moderate to severe calcified plaque of the abdominal aorta and iliac arteries. There is no evidence of bowel obstruction or infection. No peritoneal free fluid or free air. Small hiatal hernia is noted. No decubitus ulcer or other buttocks wound demonstrated. Lower thorax is notable for left base subsegmental atelectasis. No suspicious osseous lesion. IMPRESSION: No evidence of acute abdominal or pelvic abnormality. Cholelithiasis. Three tiny (1 mm) stones at the ampulla (bile duct and main pancreatic duct coming together). No biliary ductal dilatation and no pancreatic ductal dilatation. No pancreatic parenchymal calcification. Moderate to severe atherosclerosis of the abdominal aorta and iliac arteries. No decubitus ulcer or buttocks wound demonstrated. Signed: Heath Ackerman MDReport Verified Date/Time: 03/06/2018 16:20:38 Reading Location: [facility] C013X Ortho Consult Reading Room [id number] 15:38:00* Test Item Value Reference Range Comments MAGNESIUM (BEAKER) (test swpp=593) 0.8 mg/dL 1.6-2.6 [id number] 15:38:00* Test Item Value Reference Range Comments PHOSPHORUS (BEAKER) (test gwmi=206) 1.0 mg/dL 2.3-4.7 PROTHROMBIN [id number] 15:28:00* Test Item Value Reference Range Comments PROTIME (BEAKER) (test tkwh=293) 17.6 seconds 11.7-14.7 INR (BEAKER) (test ktnk=459) 1.5 <=5.9 RECOMMENDED COUMADIN/WARFARIN INR THERAPY RANGESSTANDARD DOSE: 2.0 - 3.0 Inclu alexy: PROPHYLAXIS for venous thrombosis, systemic embolization; TREATMENT for ric ous thrombosis and/or pulmonary embolus.HIGH RISK: Target INR is 2.5-3.5 for pat ients with mechanical heart valves.CBC W/PLT COUNT & AUTO [id number] 14:19:00* Test Item Value Reference Range Comments WHITE BLOOD CELL COUNT (BEAKER) (test jnpk=756) 9.4 K/ L 3.5-10.5 RED BLOOD CELL COUNT (BEAKER) (test whrs=242) 4.65 M/ L 4.63-6.08 HEMOGLOBIN (BEAKER) (test knzn=025) 12.5 GM/DL 13.7-17.5 HEMATOCRIT (BEAKER) (test zqsq=397) 40.9 % 40.1-51.0 MEAN CORPUSCULAR VOLUME (BEAKER) (test llke=344) 88.0 fL 79.0-92.2 MEAN CORPUSCULAR HEMOGLOBIN (BEAKER) (test duqa=396) 26.9 pg 25.7-32.2 MEAN CORPUSCULAR HEMOGLOBIN CONC (BEAKER) (test ffvc=360) 30.6 GM/DL 32.3-36.5 RED CELL DISTRIBUTION WIDTH (BEAKER) (test nclp=438) 17.9 % 11.6-14.4 PLATELET COUNT (BEAKER) (test usut=460) 242 K/CU MM 150-450 MEAN PLATELET VOLUME (BEAKER) (test fnlz=364) 10.7 fL 9.4-12.4 NUCLEATED RED BLOOD CELLS (BEAKER) (test fyyc=895) 0 /100 WBC 0-0 BASIC METABOLIC [id number] 14:15:00* Test Item Value Reference Range Comments SODIUM (BEAKER) (test qfhu=498) 136 meq/L 136-145 POTASSIUM (BEAKER) (test uvcv=397) 3.6 meq/L 3.5-5.1 CHLORIDE (BEAKER) (test byiz=398) 100 meq/L 98-107 CO2 (BEAKER) (test wryv=681) 25 meq/L 22-29 BLOOD UREA NITROGEN (BEAKER) (test dobp=604) 18 mg/dL 7-21 CREATININE (BEAKER) (test lvja=427) 1.21 mg/dL 0.57-1.25 GLUCOSE RANDOM (BEAKER) (test dhgj=275) 182 mg/dL 70-105 CALCIUM (BEAKER) (test jnds=854) 8.3 mg/dL 8.4-10.2 EGFR (BEAKER) (test sauf=1091) 70 mL/min/1.73 sq m ESTIMATED GFR IS NOT ACCURATE CREATININE CLEARANCE IN PREDICTING GLOMERULAR FILTRATION RATE. ESTIMATED GFR IS NOT APPLICABLE FOR DIALYSIS PATIENTS. LACTIC ACID, VENOUS, WHOLE [id number] 14:11:00* Test Item Value Reference Range Comments LACTATE BLOOD VENOUS (2) (AMADA) (test zhup=7536) 4.8 mmol/L 0.5-2.2 Specimen slightly hemolyzed Effective 03/19/2016: Units/Reference Range ChangeNew: 0.5-2.2 mmol/L Previous: 5 -20 mg/dLFungus Culture with [id number] 10:37:00Specimen/Source: Thigh/RIGHT THIGHCollected: 10/28/2017 11:00 Status: Final Last Updated: 12/14/2017 10:37 Fungal Smear Result (Final) (Final) 10/29/17 No yeast or hyphae seen Culture Result (Final) (Final) 12/14/17 No fungus isolated at 6 weeks Culture, Wound [id number] 09:02:00Specimen/Source: Thigh/RIGHT THIGHCollected: 10/28/2017 11:00 Status: Final Last Updated: 11/01/2017 07:38 Gram Stain (Final) (Final) 10/29/17 Few WBC'S , No Organisms Seen Culture Result (Final) (Final) 10/29/17 Smear from broth Gram variable rods 10/31/17 Gram variable rods nonviable for further work 10/31/17 Anaerobic culture:No anaerobes isolated at 3 days Isolate (Final) (Final) 10/30/17 From broth Group D Enterococcus Isolate (Final) (Final) 10/31/17 From broth Staph-coag negative Isolate Isolate Group D Enterococcus Staph- coag negative AMPARO (mcg/ml) Amoxicillin/Clav (AUG) < =4/2 Resistant Ampicillin (AM) <=2 Susceptible Ampicillin/Sulb (A/S) <=8/4 Resistant Cefazolin (CFZ) <=4 Resistant Ceftriaxone (COMMERCIAL CREDIT PORTFOLIO MANAGER) 8 Resistant Chloramphenicol (C) <=8 Susceptible Ciprofloxacin (CP) <=1 Susceptible Clindamycin (CM) <=0.25 Susceptible Erythromycin (E) >4 Resistant Gentamicin (GM) <=1 Susceptible Gentamicin Syn (HLG) <=500 Susceptible Imipenem (IMP) <=4 Resistant Levofloxacin (LEV) <=0.5 Susceptible Linezolid (LNZ) 2 Susceptible 2 Susceptible Oxacillin (OX1) >2 Resistant Penicillin (P) 2 Susceptible >8 Resistant Rifampin (RA) <=1 Susceptible Streptomycin Syn (HLS)<=1000 Susceptible Tetracycline (TE) <=1 Susceptible Trimethoprim/Sulfa >2/38 Resistant (SXT) Vancomycin (VA) 4 Susceptible 2 Susceptible Antibiotic Summary Grid: AUG AM A/S CFZ COMMERCIAL CREDIT PORTFOLIO MANAGER C CP CM E GM HLG Group D S S Enterococcus Staph-coag negative R R R R S S S R S IMP LEV LNZ OX1 P RA HLS TE SXT VA Group D S S S S Enterococcus Staph-coag negative R S S R R S S R S POC Glucose, [id number] 12:05:00* Test Item Value Reference Range Comments POC Glucose (test code=POCGLUC) 154 mg/dL 70-115 If you consider your patient critically ill, the Jovita Accu-Chek InformII metershould not be used for Glucose determinations.Draw a venous Glucose and send to the Main Lab for Analysis. Comprehensive Metabolic [id number] 08:08:00* Test Item Value Reference Range Comments Sodium (test code=NA) 136 mmol/L 135-145 Potassium (test code=K) 4.1 mmol/L 3.5-5.1 Chloride (test code=CL) 97 mmol/L 98-105 Carbon Dioxide (test code=CO2) 29 mmol/L 22-29 Glucose (test code=GLU) 108 mg/dL 70-115 Blood Urea Nitrogen (test code=BUN) 20 mg/dL 8-23 Creatinine (test code=CREAT) 1.1 mg/dL 0.7-1.2 Calcium (test code=CA) 9.7 mg/dL 8.3-10.5 Prot Total (test code=TP) 7.3 g/dL 6.4-8.3 Albumin (test code=ALB) 3.2 g/dL 3.5-5.2 A/G Ratio (test code=AGRATIO) 0.8 Ratio Globulin (test code=GLOB) 4.1 2.9-3.1 Bili Total (test code=TBIL) 0.3 mg/dL 0.1-0.9 Alk Phos (test code=APHOS) 54 U/L 40-129 AST (test code=AST) 15 U/L 1-40 ALT (test code=ALT) 11 U/L 1-41 BUN/Creatinine Ratio (test code=BCRATIO) 18.2 Anion Gap (test code=AGAP) 10 mmol/L 7-16 Estimated GFR (test code=GFR) >60 mL/min/1.73m2 eGFR (estimated Glomerular Filtration Rate) is an estimated value,calculated from the patient's serum creatinine using the MDRD equation.It is NOT the patient's actual GFR. The eGFR provides a more clinicallyuseful measure of kidney disease than serum creatinine alone.This calculation takes sex and race into account, if the informationis provided. If the race is not provided, and the patient isAfrican-Guinean, multiply by 1.212. If sex is not provided, and thepatient is female, multiply by 0.742. Results for patients <18 years ofage have not been validated by the MDRD study and should be interpretedwith caution.eGFR Result Interpretation:eGFR > or=60 is in the Normal RangeeGFR < 60 may mean kidney diseaseeGFR < 15 may mean kidney failureRanges recommended by the National Kidney Foundat ion,http://nkdep.nih.gov CBC with [id number] 07:57:00* Test Item Value Reference Range Comments WBC (test code=WBC) 7.5 K/cumm 4.4-10.5 RBC (test code=RBC) 4.40 M/cumm 4.10-5.70 Hemoglobin (test code=HGB) 12.1 gm/dL 13.4-17.4 Hematocrit (test code=HCT) 38.2 % 38.7-52.0 MCV (test code=MCV) 86.8 fL 80-100 MCH (test code=MCH) 27.6 pg 27.0-32.5 MCHC (test code=MCHC) 31.8 g/dL 32.0-37.5 RDW (test code=RDW) 15.3 % 11.5-14.5 Platelet Count (test code=PLTCT) 299 K/cumm 140-440 MPV (test code=MPV) 10.4 fL Diff Method (test code=DIFFM) Auto Neutrophil (test code=NEUT) 51.3 % 36-70 Lymphocyte (test code=LYMPH) 34.6 % 12-44 Monocyte (test code=MONO) 10.9 % 0-11 Eosinophil (test code=EOS) 2.7 % 0-7 Basophil (test code=BASO) 0.5 % 0-2 Neutro Abs (test code=ANEUT) 3.9 K/cumm 1.6-7.4 Lymph Abs (test code=ALYMPH) 2.6 K/cumm 0.5-4.6 Beadle Abs (test code=AMONO) 0.8 K/cumm 0.0-1.2 Eos Abs (test code=AEOS) 0.20 K/cumm 0.00-0.74 Baso Abs (test code=ABASO) 0.0 K/cumm 0.00-0.21 POC Glucose, [id number] 07:24:00* Test Item Value Reference Range Comments POC Glucose (test code=POCGLUC) 105 mg/dL 70-115 If you consider your patient critically ill, the [facility] Accu-Chek InformII metershould not be used for Glucose determinations.Draw a venous Glucose and send to the Main Lab for Analysis. MARISOL DOE W/CXR [place] [address] Patient Name: Becky ORTIZ JR Kate MR #: [id number] : 1940 Age/Sex: 77/M Req #: [id number] Adm Physician: Ordered by: MARCIANO RUSS MD Report #: [id number] Location: ER Room/Bed: Procedure: [id number] DX/RIBS UNILAT W/CXR Exam Da te: 12/11/17 Exam Time: 1310 REPORT STATUS: Sig bonny PROCEDURE: X-RAY UNILATERAL RIBS WITH CHEST X-RAY COMPARISON: N one. INDICATIONS: FALL, LEFT SIDE RIB PAIN FINDINGS: 2 views each of the right and left ribs (AP and oblique) and one additional AP view o f the chest. There are mildly displaced fractures of what appear to be the left lateral fourth, fifth, sixth, and seventh ribs. CONCLUSION: Mildly displaced fractures of what appear to be the left lateral fourth, fifth, sixth, and seventh ribs. Dictated by: Elise Cohen M.D. on at 15:17 Electronically approved by: Elise Cohen M.D. on 11/17 at 15:17 Dictated By: ELISE COHEN MD Electronical ly Signed By: ELISE COHEN MD on 12/11/17 1517 Transcribed By: CAMDEN on 1517 COPY TO: MARCIANO RUSS MD
--- OUTSIDE RECORDS SUMMARY | 2019-08-11 03:50 | XMS REPORT | Clinical Summary ---
Author Author [facility] Address Unknown Phone Unavailable Care Team Providers Care Bowstring Maker Name Role Phone Sharpless PCP Allergies Comments Active Allergy Reactions Severity Noted Date Codeine Hives 03/06/2018 Penicillins Hives 03/06/2018 Medications End Date Status Medication Sig Dispensed Refills Start Date Active omeprazole (PRILOSEC) 20 Take 20 mg by 0 MG capsule mouth daily. Active petrolatum-mineral oil Apply BL 396 g 0 Oint topical ointment lower 8 extremities twice a day. Active insulin degludec (TRESIBA Inject 60 3 mL 0 FLEXTOUCH U-100) 100 Units 8 unit/mL (3 mL) InPn subcutaneousl y daily. Active Problems Problem Noted Date Sepsis 03/06/2018 Hypomagnesemia 03/06/2018 Hypophosphatemia 03/06/2018 Severe sepsis 03/06/2018 Left buttock abscess 03/06/2018 Hyperglycemia 03/06/2018 TYRA (acute kidney injury) 03/06/2018 Social History Date Tobacco Use Types Packs/Day Years Used Quit: 1997 Former Smoker Smokeless Tobacco: Never Used Alcohol Use Drinks/Week oz/Week Comments Yes 1/5 whiskey daily Sex Assigned at Date Recorded Not on file Industry Job Start Date Occupation Not on file Not on file Not on file Travel End Travel History Travel Start No recent travel history available. Last Filed Vital Signs Not on file Plan of Treatment Not on file Results Not on fileafter 08/10/2018 Insurance Payer Benefit Subscriber ID Type Phone Address Plan / Group [employer] xxxxxxxxx [facility] HMO ALL Contracted Advance Directives For more information, please contact: [place] [address] [phone] [place] [address] Date Inactivated Comments Code Status Date Activated 03/16/2018 4:55 PM Full Code 03/06/2018 2:28 PM This code status was determined by: Patient
[2019-08-11] MEDS ORDERED: CLINDAMYCIN PHOS 900MG/ 50ML 50 ML IV STA (04:05)
[2019-08-11] MEDS ORDERED: ACETAMINOPHEN 325 MG TAB PO ONE (04:15)
[2019-08-11] MEDS ORDERED: SODIUM CHLORIDE 0.9% 1000ML 1,000 ML IV SCH (04:15)
[2019-08-11] MEDS ORDERED: ACETAMINOPHEN 325 MG TAB ONE (04:19)
[2019-08-11 04:25] LABS: BASOPHILS # (AUTO) 0.1 (0.0-0.1); BASOPHILS % 0.3 % (0.0-1.0); EOSINOPHILS % 0.1 % (0.0-6.0); HEMATOCRIT 35.6 % (38.2-49.6); HEMOGLOBIN 11.7 g/dL (14.0-18.0); LYMPHOCYTES # (AUTO) 1.1 (1.0-3.2); LYMPHOCYTES % 6.4 % (18.0-39.1); MEAN CORPUSCULAR HEMOGLOBIN 30.8 pg (28-32); MEAN CORPUSCULAR HGB CONC 32.9 g/dL (31-35); MEAN CORPUSCULAR VOLUME 93.7 fL (81-99); MONOCYTES # (AUTO) 1.4 (0.2-0.8); MONOCYTES % 7.9 % (4.4-11.3); NEUTROPHILS # (AUTO) 14.7 (2.1-6.9); NEUTROPHILS % 84.2 % (38.7-80.0); PLATELET COUNT 406 x10e3/uL (140-360); RED CELL DISTRIBUTION WIDTH 13.3 % (11.7-14.4)
[2019-08-11 04:44] LABS: ALBUMIN/GLOBULIN RATIO 0.4 (0.8-2.0); ANION GAP 15.9 mmol/L (8-16); CALCIUM 9.3 mg/dL (8.4-10.2); CREATININE, SERUM 1.89 mg/dL (0.72-1.25); POTASSIUM 3.9 mmol/L (3.5-5.1)
[2019-08-11 04:50] LABS: CREATINE KINASE MB 0.7 ng/mL (0-5.0)
[2019-08-11] MEDS ORDERED: AZITHROMYCIN 500MG/NS 250 ML 250 ML IV STA (04:59)
[2019-08-11] MEDS ORDERED: FUROSEMIDE INJ 10 MG/ML 4 ML VIAL IV ONE (05:00)
--- NOTE | 2019-08-11 05:51 | Diagnostic Imaging Report ---
EXAMINATION: CHEST SINGLE (PORTABLE) INDICATION: ^cough fever ^[id number] ^0510 COMPARISON: None FINDINGS: AP view TUBES and LINES: None. LUNGS: Limited by body habitus and low lung volumes. Central peribronchial cuffing. Left basilar haziness. PLEURA: No significant pleural effusion or pneumothorax. HEART AND MEDIASTINUM: The cardiomediastinal silhouette is enlarged on this AP view. BONES AND SOFT TISSUES: No acute osseous lesion. Soft tissues are unremarkable. UPPER ABDOMEN: No free air under the diaphragm. IMPRESSION: Limited as above. Central peribronchial cuffing. Underlying pneumonia cannot be excluded. Left basilar haziness, could represent atelectasis and/or pneumonia in the appropriate clinical context. Signed by: Dr. Markus Muñoz MD on 08/11/2019 5:47 AM
[2019-08-11 05:53] LABS: BILIRUBIN,URINE SMALL (NEGATIVE); CLARITY,URINE CLOUDY (CLEAR); COLOR,URINE YELLOW (YELLOW); KETONES,URINE NEGATIVE (NEGATIVE); LEUKOCYTE ESTERASE ,URINE MODERATE (NEGATIVE); NITRITE,URINE NEGATIVE (NEGATIVE); PROTEIN,URINE DIPSTICK 2+ (NEGATIVE); URINE UROBILINOGEN 2 mg/dL (0.2 - 1)
[2019-08-11 06:07] LABS: BACTERIA,URINE RARE /HPF; EPITHELIAL CELLS,URINE FEW /LPF
[2019-08-11] MEDS ORDERED: CEFTRIAXONE SOD 1 GRAM/0.9% SOD CHL 50ML BAG IV SCH (06:15)
[2019-08-11] MEDS ORDERED: VANCOMYCIN HCL 1GM/NS 250 ML BAG IV SCH (06:15)
[2019-08-11] MEDS: CEFTRIAXONE SOD 1 GM/NS 50 ML 50 ML IV SCH (06:15)
[2019-08-11] MEDS: VANCOMYCIN 1GM/NS 250 ML 250 ML IV SCH (06:42)
--- OUTSIDE RECORDS SUMMARY | 2019-08-11 06:45 | XMS REPORT | Clinical Summary ---
Author Author DA [facility] Address Unknown Phone Unavailable Care Team Providers Care Roll Plugger Machine Operator Name Role Phone Sharpless PCP Allergies Comments [...] Address Plan / Group [employer] xxxxxxxxx [facility] HMO ALL Contracted Advance Directives For more information, please contact: [place] [phone] [place] [address] Date Inactivated Comments Code Status Date Activated 03/16/2018 4:55 PM Full Code 03/06/2018 2:28 PM This code status was determined by: Patient
[2019-08-11] MEDS ORDERED: ASPIR 8181 MG PO (06:56)
[2019-08-11] MEDS ORDERED: FUROSEMIDE40 MG PO (06:56)
[2019-08-11] MEDS ORDERED: tresiba SQ (06:59)
[2019-08-11] MEDS ORDERED: DEXTROSE 50% SYRINGE 50 ML IV PRN (07:30)
--- NOTE | 2019-08-11 07:40 | NUR ---
PT RESTING IN BED IN LOW FOWLERS, AT BEDSIDE, NO NEEDS VOICED AT THIS TIME, BREATHING EVEN/UNLABORED, NON-DIAPHORETIC, NAD NOTED, CALL LIGHT IN REACH, BED LOW/LOCKED, WILL CONTINUE TO MONITOR.
[2019-08-11 07:46] LABS: LYMPHOCYTES % (MANUAL) 6 % (19-48); MONOCYTES % (MANUAL) 7 % (3.4-9.0); NEUTROPHILS % (MANUAL) 87 % (40-74)
[2019-08-11 07:47] LABS: PLATELET ESTIMATE SLIGHTLY INCREASED; RBC MORPHOLOGY COMMENT NORMAL
[2019-08-11] MEDS: INSULIN LISPRO 100 UNIT/1 ML 3ML VIAL SQ SCH ×4 (07:55→21:00)
[2019-08-11] MEDS ORDERED: OMEPRAZOLE 20 MG CAP PO PRN (08:45)
--- NOTE | 2019-08-11 10:12 | NUR ---
PT PLACED ON HOSPITAL BED, ABLE TO AMBULATE OFF STRETCHER AND TO BED WITH SOME ASSISTANCE, PT DENIES ANY C/O AT THIS TIME; NO FURTHER NEEDS VOICED, PROVIDED WITH CALL LIGHT AND PT REMAINS ON CONTINOUS SENIOR SALES EXECUTIVE; WILL CONTINUE TO MONITOR.
--- NOTE | 2019-08-11 10:20 | NUR ---
DR. FERNÁNDEZ AT BEDSIDE FOR PT EVAL AT THIS TIME.
[2019-08-11] MEDS ORDERED: ALBUTEROL/IPRATROPIUM 3 ML NEB NEB PRN (10:30)
[2019-08-11] MEDS ORDERED: PANTOPRAZOLE SOD 40 MG TABEC PO PRN (10:30)
[2019-08-11] MEDS: ALBUTEROL/IPRATROPIUM 3 ML NEB NEB SCH ×2 (10:35→19:40)
[2019-08-11] MEDS ORDERED: INFLUENZA VIRUS VAC SPLIT INJ 0.5 ML SYR IM ONE (13:30)
--- NOTE | 2019-08-11 13:46 | Diagnostic Imaging Report ---
EXAM: CT Chest WITHOUT intravenous contrast 08/11/2019 10:23 AM INDICATION: Shortness of breath COMPARISON: Chest radiograph of earlier the same day. TECHNIQUE: Chest was scanned utilizing a multidetector helical scanner from the lung apex through the level of the adrenal glands without administration of IV contrast. Coronal and sagittal reformations were obtained. Routine protocol was performed. IV CONTRAST: None RADIATION DOSE: Total DLP: 909.2 mGy*cm. Dose modulation, iterative reconstruction, and/or weight based adjustment of the mA/kV was utilized to reduce the radiation dose to as low as reasonably achievable. COMPLICATIONS: None FINDINGS: LINES/ TUBES: None. LUNGS AND AIRWAYS: The central airways are patent. No focal consolidation. Mild bibasilar dependent subsegmental atelectasis. No suspicious lung nodule. PLEURA: The pleural spaces are clear. HEART AND MEDIASTINUM: The thyroid gland is normal. No mediastinal, hilar or axillary lymphadenopathy. Multichamber cardiomegaly. Diffuse atherosclerotic calcifications of the coronary arteries and aorta and great vessels.. No pericardial effusion. Small sliding hiatal hernia. UPPER ABDOMEN: Limited noncontrast views of the upper abdomen. No focal liver lesion. Some hyperdense material in the partially visualized gallbladder may represent sludge or gallstones. No focal abnormality of the partially visualized spleen, pancreas, or adrenals. BONES: Healed fractures of multiple anterolateral left ribs. No acute osseous injury. No suspicious lytic or blastic lesions. SOFT TISSUES: Unremarkable. IMPRESSION: No focal pneumonia. Multichamber cardiomegaly and diffuse atherosclerotic arterial calcifications including of the coronary arteries. Small sliding hiatal hernia. Hyperdense material in the partially visualized gallbladder may represent sludge or gallstones. Signed by: Paresh Willson MD on 08/11/2019 1:43 PM
[2019-08-11 14:29] LABS: CREATINE KINASE MB 4.1 ng/mL (0-5.0)
--- NOTE | 2019-08-11 15:13 | Diagnostic Imaging Report ---
EXAM: Gallbladder Ultrasound INDICATION: Shortness of breath. Fever ^abnormal ct COMPARISON: CT scan 08/11/2019 TECHNIQUE: Transverse and longitudinal images of the gallbladder were obtained. FINDINGS: Liver: Normal in echogenicity without focal mass. The liver is enlarged measuring 19.1 cm in length Gallbladder: Stones/Sludge: Multiple echogenic foci with posterior acoustic shadowing in the lumen of the gallbladder consistent with gallstones Wall: 0.2 cm Appearance: No wall thickening, pericholecystic fluid or hydrops. Sonographic Dawson's Sign: Negative Bile Ducts: Intrahepatic Ducts: No dilatation Extrahepatic Ducts: Common bile duct measures 0.4 cm, no dilatation Free Fluid: No ascites or pleural effusion Main portal vein and normal in appearance measuring 1.0 cm with hepatopedal blood flow. 2.1 x 2.2 x 2.7 cm simple appearing cyst in the superior right kidney. 3.6 x 2.6 x 3.2 cm simple appearing cyst in the superior lateral right kidney. Right kidney otherwise normal in appearance measuring 11.7 cm in length. Pancreas and abdominal aorta are not well seen due to overlying bowel gas. Inferior vena cava grossly unremarkable. IMPRESSION: Gallstones in the lumen of the gallbladder. No ductal dilatation. Simple appearing right renal cysts. Hepatomegaly. LV hyper to kid LV hypo to spleen Jurado hyper to LV Liver Male < 16 cm Female < 15 cm Kidneys: NL 9-12 cm, <13 cm Spleen < 12 cm CBD < 7 mm CHD < 4-5 mm GB Wall < 3 mm Hydrops > 10 x 5 cm PV < 13 mm Panc. duct 3-2-1 Signed by: Dr. Keaton Millard M.D. on 08/11/2019 3:10 PM
[2019-08-11] MEDS: CARVEDILOL 12.5 MG TAB PO SCH (17:04)
[2019-08-11] MEDS: HEPARIN SOD (PORCINE) 5,000 UNIT/ML VIAL SC SCH (21:18)
[2019-08-11 23:03] LABS: CREATINE KINASE MB 2.9 ng/mL (0-5.0)
[2019-08-12] VITALS (8 sets, daily range): BP systolic 99–138; BP diastolic 45–96
[2019-08-12] MEDS: ALBUTEROL/IPRATROPIUM 3 ML NEB NEB SCH ×5 (02:05→23:23)
--- NOTE | 2019-08-12 03:58 | Consultation ---
DATE OF CONSULTATION: 08/11/2019 Pulmonary Consultation The patient of Dr. Aleman and Dr. Monae. 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 He has home oxygen, but was not using it until recently. He has had chills. He noted a boil on the left leg, which was drained. ALLERGIES: TO PENICILLIN AND CODEINE. MEDICATIONS: Include hydrochlorothiazide, aspirin, Coreg, Diltiazem, Lasix, losartan, Prilosec, Aldactone, Tresiba. Smoker years, as many as three packs a day. 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 He drinks regularly with his friends. Quit smoking over 20 years ago [place], [place]. PHYSICAL EXAMINATION: VITAL SIGNS: Temperature is 103.2 on admission, pulse 82, respirations 24, blood pressure 100/68. HEAD: Normocephalic, atraumatic. EYES: Extraocular movements intact. LUNGS: Rales left base. HEART: Regular rhythm. ABDOMEN: Obese. EXTREMITIES: Trace edema. Indurated area at the left thigh. IMPRESSION: 1. Leg abscess. 2. Community-acquired pneumonia, left lower lobe. 3. Diabetes. 4. Hypertension. 5. Questionable gallstones. PLAN: IV antibiotics, wound care, control diabetes and hypertension. Bronchodilator. Thank you for this kind referral. MD CINDY Oneill/JUANCHO /[id number]
[2019-08-12] MEDS ORDERED: AZITHROMYCIN 250MG/NS 100 ML 100 ML IV SCH (05:00)
[2019-08-12] MEDS ORDERED: AZITHROMYCIN 500MG/NS 250 ML 250 ML ONE (05:15)
[2019-08-12 05:27] LABS: BASOPHILS # (AUTO) 0.1 (0.0-0.1); BASOPHILS % 0.5 % (0.0-1.0); HEMATOCRIT 31.5 % (38.2-49.6); HEMOGLOBIN 10.3 g/dL (14.0-18.0); LYMPHOCYTES # (AUTO) 1.2 (1.0-3.2); LYMPHOCYTES % 5.5 % (18.0-39.1); MEAN CORPUSCULAR HEMOGLOBIN 30.4 pg (28-32); MEAN CORPUSCULAR HGB CONC 32.7 g/dL (31-35); MEAN CORPUSCULAR VOLUME 92.9 fL (81-99); MONOCYTES # (AUTO) 1.2 (0.2-0.8); MONOCYTES % 5.2 % (4.4-11.3); NEUTROPHILS # (AUTO) 19.4 (2.1-6.9); NEUTROPHILS % 87.7 % (38.7-80.0); PLATELET COUNT 385 x10e3/uL (140-360); RED BLOOD COUNT 3.39 x10e6/uL (4.3-5.7); RED CELL DISTRIBUTION WIDTH 13.6 % (11.7-14.4)
[2019-08-12] MEDS: CEFTRIAXONE SOD 1 GM/NS 50 ML 50 ML IV SCH (05:27)
[2019-08-12 05:43] LABS: ANION GAP 14.6 mmol/L (8-16); CALCIUM 8.3 mg/dL (8.4-10.2); CREATININE, SERUM 1.68 mg/dL (0.72-1.25); POTASSIUM 3.6 mmol/L (3.5-5.1)
[2019-08-12] MEDS: VANCOMYCIN 1GM/NS 250 ML 250 ML IV SCH (06:50)
[2019-08-12] MEDS: INSULIN LISPRO 100 UNIT/1 ML 3ML VIAL SQ SCH ×4 (07:26→20:34)
[2019-08-12] MEDS: CARVEDILOL 12.5 MG TAB PO SCH ×2 (07:43→16:36)
[2019-08-12] MEDS: SPIRONOLACTONE 25 MG TAB PO SCH (07:43)
[2019-08-12] MEDS: ASPIRIN 81 MG CHEW TAB PO SCH (07:43)
[2019-08-12 07:44] LABS: LYMPHOCYTES % (MANUAL) 5 % (19-48); MONOCYTES % (MANUAL) 6 % (3.4-9.0); NEUTROPHILS % (MANUAL) 89 % (40-74); PLATELET ESTIMATE ADEQUATE; RBC MORPHOLOGY COMMENT NORMAL
[2019-08-12] MEDS: LOSARTAN POTASSIUM 100 MG TAB PO SCH (07:44)
[2019-08-12] MEDS: DILTIAZEM HCL ER 120 MG CAP PO SCH (07:44)
[2019-08-12] MEDS: HEPARIN SOD (PORCINE) 5,000 UNIT/ML VIAL SC SCH ×2 (07:45→20:33)
[2019-08-12] MEDS: FUROSEMIDE 40 MG TAB PO SCH (07:51)
[2019-08-12] MEDS: CLINDAMYCIN 300MG 50 ML IV SCH ×3 (09:44→20:34)
[2019-08-12] MEDS: MUPIROCIN 2% OINT 22 GM TUBE TOP SCH ×2 (09:44→16:36)
[2019-08-12] MEDS ORDERED: SODIUM CHLORIDE 0.9% 250ML 250 ML ONE (09:47)
[2019-08-12] MEDS: AZITHROMYCIN 250 MG TAB PO SCH (10:59)
--- NOTE | 2019-08-12 13:38 | NUR ---
WOUNDCARE CONSULT FOR 79 YO MALE HX OF DIABETES, IN WITH FEVER AND CHILLS REPORTED BY PT AND THAT HE ALSO HAS HX OF SPONTANEOUS ERUPTIONS OF CYSTLIKE RAISED AREAS ON SKIN USUALLY BACK, BUTTOCKS OR LEGS THEY BECOME PAINFUL IF IRRITATED BY FRICTION OR SHEER LABS: WBC:22.1,HGB:10.3 AND GLUCOSE :190 BLOODCULT NEG DEISI DUPLEX PENDING MEDS: VANCO,AZITHROMYCIN & CLINDAMYCIN ASSESSMENT FINDINGS: LEFT UPPER THIGH PARTIAL THICKNESS WOUND DARK BLISTERED APPERANCE WHEN FAMILY QUESTIONED ABOUT KNOWN HISTORY OF AREA STATED USE OF HEATING PAD WHICH MATCHES THE BLISTERED BURN APPERANCE OF WOUND SURFACE AREAS MEASURE 4CM X10 CM WITH CLOSED SURFACE BLISTER OTHER AREA NOTED IS TO LOWER LFT BUTTOCK CLOSED AREA THAT IS RASIED AND IS SOFT AND BOGGY TO TOUCH PT STATES IRRITATION RT FRICTION BETWEEN BUTTOCKS ALLEVYN FOAM IS PLACED RECOMENDATIONS: NURSING TO CONTINUE TO ASSIST PT TO KEEP AREAS IRRITATION CLEAN AND DRY NURSING TO ENCOURAGE PATIENT OUT OF BED FOR MEALS AND MUCH POSSIBLE NURSING TO APPLY ALLEVYN FOAM TO LFT BUTTOCK NEEDED FOR ANTI FRICTION PROTECTON AND BARRIER NURSING TO APPLY VENELEX OINTMENT TO LFT BUTTOCKS DAILY WITH ALLEVYN FOAM NURSING TO APPLY XEROFORM JORGE DAILY TO LEFT THIGH AND COVER WITH ALLEVYN FOAM Addendum: 08/12/19 at 1338 by Adilson Art RN Amended: Links added.
--- NOTE | 2019-08-12 17:17 | History and Physical ---
The patient was seen in emergency room on August 11, 2019 at 10:00 am. PRIMARY CARE PHYSICIAN: Kapil Monae MD. GRAVEL WEIGHER: Kvng Loera MD. 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 The patient has home oxygen. He just recently used the oxygen. The patient has some chills. The patient also has a small boil lesion in the left lower extremity in the inner leg area. It is draining now. The patient is otherwise stable. He has had some vague cough. No history of traveling. No chest pain. Short of breath only on exertion. No significant CP, abdominal pain, or lower extremity pain. PAST MEDICAL HISTORY: Diabetes type 2, hypertension, dyslipidemia, morbid obesity, gastric reflux history. Diastolic dysfunction congestive heart failure on furosemide, copd on home O2, debility with strength. SOCIAL HISTORY: The patient does not smoke. He quit many years ago, but he used to smoke approximately 3 packs a day. ALLERGIES: PENICILLIN AND NOW CODEINE. HOME MEDICATION: Reviewed. REVIEW OF SYSTEMS: As mentioned above. PHYSICAL EXAMINATION: VITAL SIGNS: Temperature was 103.2, blood pressure 125/60, pulse rate is 101, respirations 22. GENERAL: The patient seems comfortable, but short of breath with any movement. HEENT: Normocephalic, atraumatic. Anicteric. NECK: Supple grossly. PULMONARY: Diminished breath sounds with rhonchi and wheezing. CARDIOVASCULAR: S1, S2. Tachycardia. ABDOMEN: Soft, morbidly obese. EXTREMITY: Left, in the thigh area with a small drain wound without pus or odor. NEUROLOGIC: No gross focal deficit. LABORATORY DATA: Sodium 134, potassium 3.6, chloride 100, bicarb 23, BUN 39, creatinine 1.6, glucose 144. WBC was 17.4, hemoglobin 11.7, hematocrit 35.6, and platelets is 406. IMAGING: Chest CT show no focal pneumonia. Multi-chamber cardiomegaly and diffuse atherosclerotic arterial calcification including coronary arteries. Small hiatal hernia. Hyperdense material in the partially visualized gallbladder may represent sludge of gallstone. IMPRESSION: 1. High fever. 2. Acute exacerbation of chronic obstructive pulmonary diseas with acute bronchitis. 3. Left lower extremity cellulitis. 4. Leukocytosis. 5. Shortness of breath. 6. Chronic kidney disease. 7. Multiple baseline problems. PLAN: Continue with antibiotics. Consultation with Dr. Kvng Loera. We will follow up on the lab work. Resume some home medication. We will monitor the patient's WBC. We will monitor patient's respiratory status. We will consult Wound Care. Rocephin, azithromycin, and clindamycin. MD COTY Galvan/JUANCHO /[id number]
--- NOTE | 2019-08-12 17:42 | NUR ---
Wound care and PT came and assessed patient. Specialty bed ordered for pt. Dr. Loera notified of patients foul smelling urine. ordered urine culture, culture was sent to lab. Dr. Almean ordered nuclear medicine hepatobiliary study. Patient could not tolerate laying flat for NM test. Less than an hour into the study Dr. Aleman notified of patient's inability to lay flat. Dr. Aleman ordered consult to Dr. Nicolas. Dr. Nicolas's office called and notified of new consult. Dr. Rea called back on behalf of Dr. Nicolas and informed of BMP. ordered urinalysis, kidney ultrasound, protein and creatine ratio of urine, BMP for tomorrow AM.
--- NOTE | 2019-08-12 18:34 | Diagnostic Imaging Report ---
HEPATOBILIARY SCAN INDICATION: 79 M with abdominal pain and cholelithiasis and hepatomegaly Report: Following the administration of 6.6 mCi of Tc-99m mebrofenin, dynamic images of the abdomen in the anterior projection were obtained through 43 minutes. THE PATIENT THEN INSISTED THAT THE STUDY BE TERMINATED. He simply wasn't able to tolerate lying flat on the imaging table. Perfusion of the liver is normal. Extraction of tracer from the blood pool by the liver parenchyma is normal. Tracer appears within the biliary tract by 14 minutes. Tracer is seen in the small bowel by 23 minutes post injection of the radiotracer. The gallbladder does not fill during the initial 43-minute dynamic sequence. Impression: Incomplete study. The patient insisted that the study be stopped. It was curtailed at 43 minutes. Tracer was seen in the small bowel by 23 minutes but no tracer appeared in the gallbladder during the 43 minutes of imaging. Signed by: Dr. Malaika Arevalo M.D. on 08/12/2019 6:31 PM
[2019-08-12 18:35] LABS: BILIRUBIN,URINE MODERATE (NEGATIVE); CLARITY,URINE SL CLOUDY (CLEAR); COLOR,URINE YELLOW (YELLOW); KETONES,URINE NEGATIVE (NEGATIVE); LEUKOCYTE ESTERASE ,URINE TRACE (NEGATIVE); NITRITE,URINE NEGATIVE (NEGATIVE); PROTEIN,URINE DIPSTICK TRACE (NEGATIVE); URINE UROBILINOGEN 1 mg/dL (0.2 - 1)
[2019-08-12 18:41] LABS: CREATININE,URINE RANDOM 349.07 mg/dL (63-166); TOTAL PROTEIN, URINE 29.3 mg/dL (1-14)
[2019-08-12 18:49] LABS: BACTERIA,URINE MODERATE /HPF; EPITHELIAL CELLS,URINE RARE /LPF
--- NOTE | 2019-08-12 20:20 | NUR ---
Dr. Aleman called for orders to transfer to Med Surg instead of IMCU. Orders received.
--- NOTE | 2019-08-12 21:00 | NUR ---
Assumed care. Assessment unchanged. No c/o or distress observed.
[2019-08-13] VITALS (7 sets, daily range): BP systolic 108–141; BP diastolic 51–65
[2019-08-13] MEDS: CLINDAMYCIN 300MG 50 ML IV SCH ×4 (03:33→22:00)
[2019-08-13] MEDS: CEFTRIAXONE SOD 1 GM/NS 50 ML 50 ML IV SCH (05:12)
[2019-08-13 05:39] LABS: BASOPHILS # (AUTO) 0.1 (0.0-0.1); BASOPHILS % 0.3 % (0.0-1.0); EOSINOPHILS % 0.1 % (0.0-6.0); HEMOGLOBIN 9.8 g/dL (14.0-18.0); LYMPHOCYTES % 4.6 % (18.0-39.1); MEAN CORPUSCULAR HEMOGLOBIN 30.3 pg (28-32); MEAN CORPUSCULAR HGB CONC 32.7 g/dL (31-35); MEAN CORPUSCULAR VOLUME 92.9 fL (81-99); MONOCYTES # (AUTO) 0.7 (0.2-0.8); MONOCYTES % 3.2 % (4.4-11.3); NEUTROPHILS # (AUTO) 19.7 (2.1-6.9); NEUTROPHILS % 88.9 % (38.7-80.0); PLATELET COUNT 364 x10e3/uL (140-360); RED BLOOD COUNT 3.23 x10e6/uL (4.3-5.7); RED CELL DISTRIBUTION WIDTH 13.6 % (11.7-14.4)
[2019-08-13 06:00] LABS: ANION GAP 14.3 mmol/L (8-16); CALCIUM 7.8 mg/dL (8.4-10.2); CREATININE, SERUM 1.42 mg/dL (0.72-1.25); POTASSIUM 3.3 mmol/L (3.5-5.1)
--- NOTE | 2019-08-13 06:00 | NUR ---
Report called to [facility]na on MS 2.
--- NOTE | 2019-08-13 06:15 | NUR ---
RECEIVED PATIENT FROM ICU. PATIENT STABLE AT THIS TIME. NO PAIN REPORTED. NO S&S OF DISTRESS NOTED. O2@2L VIA NC. AT BEDSIDE. BED LOCKED IN LOWEST POSITION, SIDE RAILS UPX2, CALL LIGHT IN REACH.
--- NOTE | 2019-08-13 06:15 | NUR ---
Transferred per bed to 213. Care to RN.
[2019-08-13 07:24] LABS: BAND NEUTROPHILS % (MANUAL) 3 %; LYMPHOCYTES % (MANUAL) 1 % (19-48); MONOCYTES % (MANUAL) 1 % (3.4-9.0); NEUTROPHILS % (MANUAL) 95 % (40-74)
[2019-08-13 07:25] LABS: ANISOCYTOSIS SLIGHT; PLATELET ESTIMATE ADEQUATE; PLATELET MORPHOLOGY COMMENT NORMAL; RBC MORPHOLOGY COMMENT ABNORMAL; TOXIC GRANULATION SLIGHT
[2019-08-13] MEDS: INSULIN LISPRO 100 UNIT/1 ML 3ML VIAL SQ SCH ×4 (07:30→21:00)
[2019-08-13] MEDS: ALBUTEROL/IPRATROPIUM 3 ML NEB NEB SCH ×3 (08:00→20:05)
[2019-08-13] MEDS: FUROSEMIDE 40 MG TAB PO SCH (09:00)
[2019-08-13] MEDS: HEPARIN SOD (PORCINE) 5,000 UNIT/ML VIAL SC SCH ×2 (09:00→21:25)
[2019-08-13] MEDS: DILTIAZEM HCL ER 120 MG CAP PO SCH (09:00)
[2019-08-13] MEDS: LOSARTAN POTASSIUM 100 MG TAB PO SCH (09:00)
[2019-08-13] MEDS: SPIRONOLACTONE 25 MG TAB PO SCH (09:00)
[2019-08-13] MEDS: ASPIRIN 81 MG CHEW TAB PO SCH (09:00)
[2019-08-13] MEDS: CARVEDILOL 12.5 MG TAB PO SCH ×2 (09:00→16:43)
[2019-08-13] MEDS: AZITHROMYCIN 250 MG TAB PO SCH (09:00)
[2019-08-13] MEDS: MUPIROCIN 2% OINT 22 GM TUBE TOP SCH ×2 (09:01→16:43)
[2019-08-13] MEDS: BALSAM PERU/CASTOR OIL 60 GM OINT...G. TP SCH (09:01)
[2019-08-13] MEDS ORDERED: FUROSEMIDE INJ 10 MG/ML 4 ML VIAL IV NR (09:15)
--- NOTE | 2019-08-13 13:48 | NUR ---
Nutrition Screen Note RD Recommendation for Physician: Continue diet as ordered with soft foods. Plan of Care: RD following, monitoring for tolerance and adequacy Nutrition reason for involvement: Nutrition Risk Trigger - MST Primary Diagnose(s): CAP PMH: T2DM, Dyslipidemia, Diastolic heart failure, GERD Ht:72 in Wt:334.5lb BMI:45.4 kg/m2 IBW:178lb +/-10% RD Assessment: (08/13/2019) Chart reviewed. Labs and meds reviewed. Initial encounter with patient. Pt with C/O biting/chewing difficulty related to poor fitting dentures as evidenced by pt having difficulty eating regular textures. Offered pt a texture modification and he refused, but his daughter requested a texture modification. Pt denies nausea, vomiting or diarrhea. Pt states that he's not a big eater. No significant wt changes. Pt can feed himself, but his daughter helps to feed the pt. Current Diet: Cardiac 1800 ADA diet Malnutrition Evaluation (08/13/2019) The patient does not meet criteria for a specified degree of malnutrition at this time. Will re-evaluate at follow-up as appropriate. Diet Education Needs Assessment: Diet education indicated, but pt refused Nutrition Care Level: Low Signed: Jasper Truong RD, LD, [facility]
--- NOTE | 2019-08-13 14:30 | NUR ---
pt refusing to work with therapy twice today and instructed pt to at least sit up...will f/u on thursday Addendum: 08/13/19 at 1431 by Cesar Morrison PTA Amended: Links added.
--- NOTE | 2019-08-13 15:47 | Consultation ---
DATE OF CONSULTATION: 08/13/2019 REQUESTING PHYSICIAN: Cesar Aleman MD. REASON FOR CONSULTATION: Acute kidney injury. HISTORY OF PRESENT ILLNESS: Thank you for allowing us to participate in Mr. Valerio's care. This is an 79-year-old male who came in with worsening dyspnea and has a history of advanced COPD, chronic kidney disease stage 3 with baseline creatinine of 1.3-1.5 mg%. He does have a history of CHF. States he feels more dyspneic when he lays down flat, still minimal swelling is noted. He uses home oxygen, came with a draining lesion in his left lower leg in addition to his presumed lung infection. PAST MEDICAL HISTORY: Type 2 diabetes, CKD stage 3, hypertension, obesity, GERD, and CHF. SOCIAL HISTORY: Remote history of smoking. ALLERGIES: PENICILLIN AND CODEINE. MEDICATIONS: 1. Albuterol p.r.n. 2. Ceftriaxone 1 g IV. 3. Clindamycin 300 mg IV 4 times a day. 4. Mupirocin ointment. 5. Carvedilol 12.5 mg b.i.d. 6. Zithromax 250 mg p.o. daily. 7. Lasix 40 mg p.o. daily. 8. Losartan 100 mg a day. 9. Diltiazem 240 mg a day. 10. Spironolactone 50 mg a day. 11. Omeprazole 20 mg b.i.d. 12. Aspirin 81 mg a day. REVIEW OF SYSTEMS: CONSTITUTIONAL: Feels weak, has slight dyspnea, especially when he lays down flat. CARDIAC: No angina or syncope. NEURO: Denies any headache or seizures. SKIN: Draining abscess on the left thigh with no bandage. NEURO: Has some weakness. Rest of review is negative. PHYSICAL EXAMINATION: GENERAL: Lying in bed, appears slightly dyspneic. VITAL SIGNS: Temperature 99.1, pulse 85, blood pressure 141/56. HEENT: Atraumatic. NECK: Neck veins are prominent. CHEST: Scattered wheezes. CARDIAC: Normal heart tones. Rhythm sound is regular at this time. EXTREMITIES: Trace to 1+ edema. ABDOMEN: Benign. NEUROLOGIC: Alert, appropriate. SKIN: Bandage on the left thigh. LABORATORY DATA: Hemoglobin is 11.7, K 3.3, creatinine down to 1.42, BUN 44, and serum CO2 of 25. CT scan was done without IV contrast. It does not show any gross fluid overload in contrast to his symptoms. There is, however, some cardiomegaly. Admission creatinine was noted to be 1.9, hemoglobin 11.7, white count 22735, and platelets 406. ASSESSMENT: 1. Acute tubular necrosis, improving. 2. Fluid overload. 3. Chronic kidney disease stage 3. 4. Presumed diabetic nephropathy/nephrosclerosis. 5. Proteinuria is noted to be undetectable. PLAN: Leave on the ARB as he seems to be tolerating it. One dose of IV Lasix change p.o. Lasix to b.i.d. from tomorrow. A.m. chemistries. Await renal ultrasound. We will follow along. Sincerely, Collins Huddleston. MD JOSSELINE CastilloK/DIEGOL /[id number]
--- NOTE | 2019-08-13 16:51 | NUR ---
Wound care provided at this time to L inner thigh. New dressing applied, CDI. Darker than skin to the area, skin to surrounding site warm to touch, swelling noted. Pt c/o mild pain 3-4/10 during wound care. Call light within reach, bed in lowest position.
--- NOTE | 2019-08-13 19:26 | NUR ---
Patient received lying in bed. AAO x 3. Family at bedside. No complaints of pain. Respirations even and non-labored on 2L NS, Fall precautions implemented. Patient instructed to call for assistance when needed. Call light within reach.
[2019-08-14] VITALS (8 sets, daily range): BP systolic 93–132; BP diastolic 39–62
[2019-08-14] MEDS: ALBUTEROL/IPRATROPIUM 3 ML NEB NEB SCH ×4 (01:00→19:25)
[2019-08-14] MEDS: CLINDAMYCIN 300MG 50 ML IV SCH (04:13)
[2019-08-14] MEDS: CEFTRIAXONE SOD 1 GM/NS 50 ML 50 ML IV SCH (05:07)
--- NOTE | 2019-08-14 07:11 | NUR ---
Shift report given to oncoming nurse.
[2019-08-14] MEDS: INSULIN LISPRO 100 UNIT/1 ML 3ML VIAL SQ SCH ×4 (07:30→21:00)
--- NOTE | 2019-08-14 07:55 | Consultation ---
DATE OF CONSULTATION: 08/14/2019 HISTORY OF PRESENT ILLNESS: The patient is an 79-year-old male, admitted to the hospital with pneumonia. He has history of diabetes, hypertension, chronic obstructive pulmonary disease, congestive heart failure. He was found to have an infection in the left groin area, which has been treated with local care, but is not improving. He also been found to have gallstones and a HIDA scan, although over limited, did not visualize the gallbladder. It was only done for 43 minutes as the patient could not tolerate the test. The patient says he hs chronic history of what he calls indigestion. He denies any abdominal pain at this time. He has had some nausea when he first came in, but this has resolved. He has had low-grade fever. PAST MEDICAL HISTORY: Significant for medical problems as stated above. PAST SURGICAL HISTORY: He has had previous appendectomy. MEDICATIONS: Listed in the chart. ALLERGIES: HE HAS ALLERGIES TO PENICILLIN AND CODEINE. FAMILY HISTORY: Significant for diabetes. SOCIAL HISTORY: The patient is a former smoker, quit many years ago. Drinks alcohol a day, but not excessively. REVIEW OF SYSTEMS: As stated above. He has not had any fever. He complains of swelling in the left testicle, which he has had for many years. He says since the injured it. PHYSICAL EXAMINATION: GENERAL: The patient is awake and alert. VITAL SIGNS : At this time are normal. HEENT: There was no scleral icterus. NECK: No masses. LUNGS: Decreased breath sounds at the bases bilaterally with slight expiratory wheeze. CARDIAC: Regular rate and rhythm. ABDOMEN: Soft. There was no tenderness. No mass. No organomegaly. EXTREMITIES: In the left groin, there is a tissue necrosis with some mild surrounding erythema. There is no drainage. There is edema of the lower extremities, which is mild. NEUROLOGIC: Grossly intact. ASSESSMENT: An 79-year-old male with infection at the left groin. When the patient is medically stable, probably should have this area debrided. He has gallstones, but there are no findings suggestive of acute cholecystitis and he is very high risk for intra-abdominal surgery for complication because of his underlying medical problems. At this point, I recommend continued antibiotics and probably he will need debridement of the left groin wound at some point. The swelling in the left testicle is also present. This probably likely is a hydrocele and would best be addressed by urologist. Thank you for asking me to see Mr. Valerio. MD JOHNATHAN Lafleur/JUANCHO /[id number]
[2019-08-14 08:58] LABS: ANION GAP 13.3 mmol/L (8-16); CALCIUM 7.8 mg/dL (8.4-10.2); CREATININE, SERUM 1.41 mg/dL (0.72-1.25); PHOSPHORUS 2.8 MG/DL (2.3-4.7); POTASSIUM 3.3 mmol/L (3.5-5.1)
[2019-08-14] MEDS: HEPARIN SOD (PORCINE) 5,000 UNIT/ML VIAL SC SCH (09:00)
[2019-08-14] MEDS: SPIRONOLACTONE 25 MG TAB PO SCH (09:33)
[2019-08-14] MEDS: FUROSEMIDE 40 MG TAB PO SCH ×2 (09:33→18:20)
[2019-08-14] MEDS: LOSARTAN POTASSIUM 100 MG TAB PO SCH (09:33)
[2019-08-14] MEDS: DILTIAZEM HCL ER 120 MG CAP PO SCH (09:33)
[2019-08-14] MEDS: ASPIRIN 81 MG CHEW TAB PO SCH (09:33)
[2019-08-14] MEDS: BALSAM PERU/CASTOR OIL 60 GM OINT...G. TP SCH (09:34)
[2019-08-14] MEDS: ACETAMINOPHEN 325 MG TAB PO PRN (09:34)
[2019-08-14] MEDS: MUPIROCIN 2% OINT 22 GM TUBE TOP SCH ×2 (09:34→18:03)
[2019-08-14] MEDS ORDERED: MAGNESIUM SULFATE 2GM/50ML 50 ML IV ONE (10:00)
[2019-08-14] MEDS: CARVEDILOL 12.5 MG TAB PO SCH ×2 (10:02→18:20)
[2019-08-14] MEDS ORDERED: VANCOMYCIN 1GM/NS 250 ML 250 ML IV ONE (10:30)
[2019-08-14] MEDS ORDERED: POTASSIUM CHLORIDE 10MEQ EA PO SCH (10:30)
[2019-08-14] MEDS ORDERED: CLINDAMYCIN 600MG / 50ML 50 ML IV SCH (10:45)
--- NOTE | 2019-08-14 10:58 | NUR ---
Two new blisters formed on side of L hip, draining clear yellow fluid. Warm to site, reddened area. Pt c/o pain and sensitivity to site.
[2019-08-14] MEDS ORDERED: AZTREONAM 2GM/NS 100ML 100 ML IV SCH (11:00)
[2019-08-14] MEDS: ONDANSETRON HCL INJ 2MG/ML 2ML 2 MG/ML VIAL IV PRN (13:58)
[2019-08-14] MEDS: HYDROCODONE/APAP 10MG-325MG TAB PO PRN (14:42)
[2019-08-14] MEDS: PANTOPRAZOLE SOD 40 MG TABEC PO SCH (14:43)
[2019-08-14] MEDS ORDERED: CEFEPIME HCL 1 GM VIAL IV SCH (14:45)
[2019-08-14] MEDS: VANCOMYCIN 1GM/NS 250 ML 250 ML IV SCH (15:04)
[2019-08-14] MEDS ORDERED: DIATRIZOATE MEGL/DIATRIZOA SOD 30 ML BTL PO ONE (15:16)
[2019-08-14] MEDS: SODIUM CHLORIDE 0.9% 1000ML 1,000 ML IV SCH (15:28)
--- NOTE | 2019-08-14 17:07 | Consultation ---
DATE OF CONSULTATION: 06/13/2019 CHIEF COMPLAINT: Sepsis. HISTORY OF PRESENT ILLNESS: This patient who is an 79-year-old male with history of diabetes mellitus. The patient originally comes in August 12 with fever and chills. No specific complaint. The patient has been with shortness of breath. He originally came where he felt that he may have leg abscess, perhaps pneumonia. The tells me that there was no rash when he first came. The patient was admitted, he was started on antibiotic. He was seen by Pulmonary, he was also seen by Renal on August 13. He has history of congestive heart failure, obesity, diabetes mellitus, chronic kidney disease, stage 3. He was given albuterol, ceftriaxone, and clindamycin 300 four times daily, azithromycin, and aspirin. The patient apparently today started to have a worsening condition of his thigh with a bullous noted. The patient was seen by Surgery. I was asked to see him. I did come to visit with the patient. He is currently alert, oriented, and comfortable. He started to have pain in the area. The tells me that this is new. There are two new bullous lesions started today. PHYSICAL EXAMINATION: GENERAL: Alert, comfortable. VITAL SIGNS: Stable. T-max 100.1, when he first came it was 103. HEENT: Normocephalic. NECK: Supple. CHEST: Few crackles. HEART: S1, S2. ABDOMEN: Soft, obese. Left groin area, there is an area of necrosis about 5 x 7 cm, and there were two bullous lesions, each about 1 cm with clear liquid. There is induration noted around the area of necrosis. LABORATORY DATA: Reviewed. His white count 22.1, hemoglobin 9.8, sodium 137, potassium 3.3, creatinine 1.14, and glucose of 154. IMPRESSION: I think the patient has sepsis, secondary to necrotizing soft tissue infection of his groin. We will get a stat CT abdomen and pelvis with oral contrast, also ultrasound going down to the thigh to assess if he need a surgical debridement as soon as possible. We will keep a close eye on him. We will change the antibiotic to clindamycin 900 IV q.8, cefepime 1 g q. 12, and vancomycin 2 g now, then 1 g after q.24 hours and follow levels. We will follow. MD SAGE Che /[id number]
[2019-08-14] MEDS: CEFEPIME 1GM/NS 0.9% 50 ML 50 ML IV SCH (18:20)
[2019-08-14] MEDS: SENNOSIDES 8.6 MG TAB PO SCH (18:20)
--- NOTE | 2019-08-14 18:22 | Diagnostic Imaging Report ---
EXAM: CT of the abdomen and pelvis WITHOUT contrast HISTORY: Infection, swelling, left lies/pelvis, rule out abscess COMPARISON: None available. TECHNIQUE: The abdomen and pelvis were scanned utilizing a multidetector helical scanner. Coronal and sagittal reformats are available. PROTOCOL: Routine IV CONTRAST: None, which limits sensitivity and specificity of evaluation of the soft tissues and vascular structures. ORAL CONTRAST: None, which limits sensitivity and specificity of evaluation of the bowel. RADIATION DOSE: Total DLP: 1465.19 mGy*cm Estimated effective dose: (DLP x 0.015 x size factor) Dose modulation, iterative reconstruction, and/or weight based adjustment of the mA/kV was utilized to reduce the radiation dose to as low as reasonably achievable. COMPLICATIONS: None FINDINGS: Soft tissue attenuation partially limits sensitivity of the exam. Motion artifact partially limits sensitivity and specificity of the exam. LOWER THORAX: Mild bilateral lower lobe atelectasis. HEPATOBILIARY: No mass. No biliary dilation. Possible 3.6 x 2.4 cm subtle peripherally calcified gallstone near the neck. SPLEEN: No splenomegaly. PANCREAS: Diffuse parenchymal atrophy. Limited evaluation, especially of the head and adjacent decompressed duodenum. ADRENALS: No adrenal nodule. KIDNEYS/URETERS: No hydronephrosis, stones, or solid mass lesion identified. Bilateral hypodensities, the majority clearly fluid density, measuring up to 2.7 and 2.6 cm on the right. PELVIC ORGANS/BLADDER: The urinary bladder is predominantly decompressed, which somewhat limits the evaluation. Mildly enlarged prostate with central coarse calcifications. PERITONEUM / RETROPERITONEUM: No free air or fluid. GI TRACT: A small sliding hiatal hernia. Radiopaque contrast within the stomach. Limited evaluation of the predominantly decompressed duodenum. Radiopaque contrast within the proximal small bowel. Somewhat patulous appearance of the colon. The presumed partially visualized appendix appears unremarkable. LYMPH NODES: No pathologically enlarged lymph nodes. VESSELS: Scattered atherosclerotic vascular calcifications, including the coronary arteries. BONES and JOINTS: Chronic healed left-sided rib fracture deformities. SOFT TISSUES: * Prominent soft tissue emphysema within the superficial soft tissues of the partially visualized anterolateral left proximal thigh and lateral gluteal soft tissues. * Prominent gynecomastia. IMPRESSION: 1. Prominent soft tissue emphysema within the superficial soft tissues of the partially visualized anterolateral left proximal thigh and lateral gluteal soft tissues. 2. Probable cholelithiasis. 3. Multiple bilateral renal cysts, recommend correlation with a nonemergent follow-up renal ultrasound to confirm all of the lesions are are simple cysts. 4. Small sliding hiatal hernia. 5. Coronary atherosclerosis. 6. Gynecomastia. Signed by: Dr. Bobby Marrufo D.O., M.M.M. on 08/14/2019 6:18 PM
--- NOTE | 2019-08-14 18:33 | Diagnostic Imaging Report ---
CT scan of the LEFT THIGH/FEMUR, WITHOUT injected contrast. TECHNIQUE: Standard departmental protocols were used. Sagittal and coronal reformatted images were obtained. Dose modulation, iterative reconstruction, and/or weight based adjustment of the mA/kV was utilized to reduce the radiation dose to as low as reasonably achievable. DLP = 637.56 mGy-cm HISTORY: Infection, swelling, rule out abscess COMPARISON: None. FINDINGS: Soft tissue attenuation partially limits sensitivity of the exam. Absence of intravenous contrast limits evaluation of the soft tissues. Bones: No acute displaced fracture. No aggressive osseous lesion. No osseous erosion. Joints: Multifocal degenerative changes, most notably tricompartmental degenerative changes of the knee. Soft Tissues: * Prominent soft tissue emphysema within the superficial adipose tissue of the anterior and anterolateral thigh extending to the lateral superficial adipose tissue overlying the gluteal region. * Prominent regional soft tissue fat stranding. * Prominent lymphadenopathy, measuring up to 1.4 cm in short axis, likely reactive to the evolving infectious process. * Incidental large left and small right hydroceles. * Diffuse scattered atherosclerotic vascular calcifications. IMPRESSION: 1. Extensive superficial adipose tissue soft tissue emphysema, but no discrete drainable fluid collection/abscess. 2. Inguinal lymphadenopathy, likely reactive. 3. Large left and small right hydroceles. Signed by: Derrell Li.Reggie., M.M.M. on 08/14/2019 6:30 PM
[2019-08-14] MEDS: CLINDAMYCIN PHOS 900MG/ 50ML 50 ML IV SCH (19:16)
--- NOTE | 2019-08-14 19:30 | NUR ---
Patient received lying in bed. AAO x 3. Patient had no complaints of pain. Respirations even and non-labored on 2L NC. IVF infusing at 100 cc /hr. Left thigh wound and blisters open to air. Patient assisted to a more comfortable position. Patient reminded about NPO status for upcoming surgical procedure. Patient verbalized understanding. Fall precautions implemented. Call light within reach.
--- NOTE | 2019-08-14 20:38 | NUR ---
Dr. Atkinson paged to convey results of CT/ABD/PEL and CT /Left Lower Extremity. Awaiting call back.
--- NOTE | 2019-08-14 21:20 | NUR ---
Dr. Atkinson returned call. Results of CT /ABD/PEL and CT /Left lower extremities relayed to MD. No new order received.
[2019-08-15] VITALS (25 sets, daily range): BP systolic 77–122; BP diastolic 4–62
[2019-08-15] MEDS: ALBUTEROL/IPRATROPIUM 3 ML NEB NEB SCH ×4 (00:18→19:00)
[2019-08-15] MEDS: CLINDAMYCIN PHOS 900MG/ 50ML 50 ML IV SCH ×4 (02:15→18:55)
[2019-08-15] MEDS: SODIUM CHLORIDE 0.9% 1000ML 1,000 ML IV SCH ×3 (02:15→21:55)
[2019-08-15] MEDS: HYDROCODONE/APAP 10MG-325MG TAB PO PRN (03:32)
[2019-08-15] MEDS: CEFEPIME 1GM/NS 0.9% 50 ML 50 ML IV SCH ×2 (04:15→17:01)
[2019-08-15 05:36] LABS: BASOPHILS # (AUTO) 0.1 (0.0-0.1); BASOPHILS % 0.4 % (0.0-1.0); EOSINOPHILS # (AUTO) 0.1 (0.0-0.4); EOSINOPHILS % 0.3 % (0.0-6.0); HEMATOCRIT 31.3 % (38.2-49.6); HEMOGLOBIN 10.3 g/dL (14.0-18.0); LYMPHOCYTES # (AUTO) 1.2 (1.0-3.2); MEAN CORPUSCULAR HEMOGLOBIN 30.6 pg (28-32); MEAN CORPUSCULAR HGB CONC 32.9 g/dL (31-35); MEAN CORPUSCULAR VOLUME 92.9 fL (81-99); MONOCYTES # (AUTO) 1.8 (0.2-0.8); MONOCYTES % 7.4 % (4.4-11.3); NEUTROPHILS # (AUTO) 19.9 (2.1-6.9); NEUTROPHILS % 81.6 % (38.7-80.0); PLATELET COUNT 421 x10e3/uL (140-360); RED BLOOD COUNT 3.37 x10e6/uL (4.3-5.7); RED CELL DISTRIBUTION WIDTH 14.4 % (11.7-14.4)
[2019-08-15 05:47] LABS: ANION GAP 15.5 mmol/L (8-16); CALCIUM 7.9 mg/dL (8.4-10.2); CREATININE, SERUM 1.98 mg/dL (0.72-1.25); POTASSIUM 3.5 mmol/L (3.5-5.1)
--- NOTE | 2019-08-15 06:55 | NUR ---
rounded with paleobotanist nurse, patient resting comfortably and in no distress. call rangel within reach and bed in lowest position.
--- NOTE | 2019-08-15 07:00 | NUR ---
Walking rounds done. Shift report given to oncoming nurse.
[2019-08-15 07:05] LABS: BAND NEUTROPHILS % (MANUAL) 10 %; EOSINOPHILS % (MANUAL) 1 % (0-7); LYMPHOCYTES % (MANUAL) 6 % (19-48); MONOCYTES % (MANUAL) 6 % (3.4-9.0); NEUTROPHILS % (MANUAL) 77 % (40-74)
[2019-08-15 07:06] LABS: PLATELET ESTIMATE ADEQUATE; RBC MORPHOLOGY COMMENT NORMAL
[2019-08-15 07:07] LABS: TOXIC GRANULATION MODERATE
[2019-08-15] MEDS: INSULIN LISPRO 100 UNIT/1 ML 3ML VIAL SQ SCH ×4 (07:30→21:00)
[2019-08-15] MEDS: PANTOPRAZOLE SOD 40 MG TABEC PO SCH (07:30)
[2019-08-15] MEDS: CARVEDILOL 12.5 MG TAB PO SCH ×2 (08:00→16:37)
[2019-08-15] MEDS: FUROSEMIDE 40 MG TAB PO SCH ×2 (09:00→17:00)
[2019-08-15] MEDS: SPIRONOLACTONE 25 MG TAB PO SCH (09:00)
[2019-08-15] MEDS: SENNOSIDES 8.6 MG TAB PO SCH ×2 (09:00→17:00)
[2019-08-15] MEDS: ASPIRIN 81 MG CHEW TAB PO SCH (09:00)
[2019-08-15] MEDS: BALSAM PERU/CASTOR OIL 60 GM OINT...G. TP SCH (09:00)
[2019-08-15] MEDS: DILTIAZEM HCL ER 120 MG CAP PO SCH (09:00)
[2019-08-15] MEDS: MUPIROCIN 2% OINT 22 GM TUBE TOP SCH ×2 (09:00→16:30)
--- NOTE | 2019-08-15 10:45 | NUR ---
patient alert and oriented with family at bedside. leaving unit at this time for surgical debridement via hospital bed Addendum: 08/15/19 at 1323 by Margi Shah RN [phone] for the time
--- NOTE | 2019-08-15 10:45 | NUR ---
patient leaving unit at this time for debridement procedure, family at bedside.
[2019-08-15] MEDS ORDERED: LIDOCAINE HCL 1% LOCAL INJ 20 ML VIAL ONE (10:59)
--- NOTE | 2019-08-15 13:10 | NUR ---
report given to IMCU nurse at this time, patient to be arriving there from PACU due to transfer
[2019-08-15] MEDS ORDERED: SODIUM CHLORIDE 0.9% 1000ML 1,000 ML ONE (14:19)
[2019-08-15] MEDS: VANCOMYCIN 1GM/NS 250 ML 250 ML IV SCH (15:18)
--- NOTE | 2019-08-15 17:24 | Diagnostic Imaging Report ---
EXAM: Renal Ultrasound INDICATION: Acute kidney injury COMPARISON: CT abdomen and pelvis of 08/14/2019 TECHNIQUE: Transverse and longitudinal images of the kidneys and bladder were obtained. FINDINGS: Right Kidney: Length: 12.8 cm Appearance: Normal echogenicity. Collecting system: No hydronephrosis Stones: None Cyst/Mass: Lateral midpole exophytic anechoic simple cyst measuring 3.3 cm. Additional lateral simple cyst measures 2.3 cm. Left Kidney: Length: 11.8 cm Appearance: Normal echogenicity. Collecting system: No hydronephrosis Stones: None Cyst/Mass: None Bladder: Not visualized due to extensive overlying bowel gas. IMPRESSION: No renal calculi or hydronephrosis. Right renal simple cysts as above. Signed by: Paresh Willson MD on 08/15/2019 5:21 PM
[2019-08-15] MEDS ORDERED: ACYCLOVIR SODIUM INJ 1,000 MG in SODIUM CHLORIDE 0.9% 250ML 250 ML IV SCH (17:30)
--- NOTE | 2019-08-15 17:30 | NUR ---
called dr key to updated, then dr laird making rounds and seen pt. orders recvd and being completed. pt to get a central line for bp support. at bedside updated on status.
[2019-08-15] MEDS ORDERED: SODIUM CHLORIDE 0.9% 250ML 250 ML IV ONE (17:45)
[2019-08-15] MEDS ORDERED: VASOPRESSIN INJ 20 UNIT/ML VIAL ONE (17:57)
[2019-08-15] MEDS ORDERED: ONDANSETRON HCL INJ 2MG/ML 2ML 2 MG/ML VIAL ONE (17:57)
[2019-08-15] MEDS ORDERED: EPHEDRINE SULFATE INJ 50 MG/10 ML SYR ONE (17:57)
[2019-08-15] MEDS ORDERED: SEVOFLURANE INHAL SOLN 250 ML PEN BTL ONE (17:57)
[2019-08-15] MEDS ORDERED: LIDOCAINE HCL 2% LOCAL INJ 5 ML SDV VIAL INJ ONE (17:57)
[2019-08-15] MEDS ORDERED: PROPOFOL IV EMULSION 10 MG/ML 20 ML VIAL ONE (17:57)
--- NOTE | 2019-08-15 18:09 | Progress Note ---
DATE: 06/14/2019 SUBJECTIVE: I have reviewed his CAT scan yesterday night. Discussed the case with the Surgery, Dr. Brnadt, on couple of occasions, also with Dr. Aleman. I felt he has necrotizing soft tissue infection. The patient underwent debridement today. He is currently in the IMCU. The patient was alert, comfortable in bed. No specific complaint, weak. Family is at the bedside. They have several questions for me, discussed with them. The patient underwent debridement of his left groin. There was necrotizing soft tissue infection. I do not have the full report yet. The patient is going for debridement again tomorrow. His cultures are still pending. PHYSICAL EXAMINATION: GENERAL: The patient is currently alert, comfortable. VITAL SIGNS: His blood pressure is running on the low side. Heart rate is 68, blood pressure is 93/38. The nurse is telling me his mean blood pressure she cannot get over 60. He is afebrile. HEENT: He is not icteric. NECK: Supple. CHEST: Clear bilateral. COR: S1 and S2. ABDOMEN: Soft. Bowel sounds present. Obese. EXTREMITIES: There is no edema. The wound is covered. He seems to be a little bit more alert today. LABORATORY DATA: White count is 24.38, hemoglobin of 10, hematocrit of 31. His vancomycin trough was 4.7. His sodium 137, potassium 3.5, creatinine 1.98, and glucose is 145. MEDICATIONS: He is on vancomycin 1 g q.24. He is on clindamycin and cefepime. The rest of his medication also reviewed. He is on Zofran, Tylenol, Senokot, Protonix. His cultures are still pending. IMPRESSION AND PLAN: 1. Sepsis with septic shock, severe, present on admission secondary to necrotizing soft tissue infection, affecting the left groin and thigh, status post debridement. Remains hypotensive. We will move to ICU, started on vasopressors. Discussed with Dr. Loera. 2. Necrotizing soft tissue infection. We will increase the vancomycin to 1 g q. 12. I know he is in acute kidney failure, but I am going to keep with his vancomycin trough is 4. We will check vancomycin level with the third dose. 3. Continue with cefepime. He is getting 1 g q.12 and to continue clindamycin. He is getting to 900 q.6. We will reassess tomorrow morning. 4. Diabetes mellitus. Internal Medicine is following. 5. Obesity, morbidly obese patient. 6. We will follow with you. I spent 45 minutes with the patient and the family as well as discussed with all parties and medical team. MD KENNEY Che/MODL /[id number]
[2019-08-15] MEDS ORDERED: FENTANYL CITRATE/PF 100MCG/2 ML INJ ONE (18:14)
[2019-08-15] MEDS ORDERED: KETAMINE HCL INJ 50 MG/ML 10 ML VIAL ONE (18:14)
[2019-08-15 18:50] LABS: INR 1.18; PROTHROMBIN TIME 15.6 seconds (11.9-14.5)
--- NOTE | 2019-08-15 19:04 | Operative Report ---
DATE OF PROCEDURE: 08/15/2019 SURGEON: Kvng Brandt MD PREOPERATIVE DIAGNOSIS: Necrotizing cellulitis, left groin. POSTOPERATIVE DIAGNOSIS: Necrotizing cellulitis, left groin. PROCEDURE: Excisional debridement of necrotizing cellulitis, left groin. Skin and subcutaneous tissue 1200 square cm. ASSOCIATE ORACLE RETAIL: None. ANESTHESIA: General. INDICATIONS AND FINDINGS: The patient is an 79-year-old male, admitted to the hospital with multiple complaints, had abscess in left groin, which got progressively larger. Surgery based on the large area of necrotizing cellulitis and starting in the left groin extending laterally with approximately 1200 square cm of skin and subcutaneous tissue were excised. There was no underlying muscle. TECHNIQUE: After adequate general anesthesia, the patient is in supine position, the left groin was prepped and draped in a sterile fashion with Betadine solution. The necrotic skin was excised. There was a large amount of necrotic subcutaneous tissue. All of the necrotic tissue was excised. The debridement was done using scalpel. As the necrotic tissue was taken off the saphenous vein, this vein was suture ligated with 2-0 Vicryl. The debridement was carried back until there was all healthy bleeding tissue. The area of debridement was about 1200 square cm. Hemostasis was achieved with electrocautery. The wound was irrigated with saline, then dressed open with saline moistened, Kerlix, gauze, and sterile dressing applied. The patient tolerated the procedure well. Estimated blood loss was 150 mL. There were no complications. All counts were correct. The patient was taken to the recovery room in satisfactory condition. Kvng Brandt MD DWG/MODL /[id number] cc: MD Cesar Che MD Michael E Buxbaum, MD David Stein, MD
--- NOTE | 2019-08-15 22:02 | NUR ---
per Dr. Conner central line ok to use. RN informed, Levophed gtt started for BP support.
--- NOTE | 2019-08-15 23:57 | Diagnostic Imaging Report ---
EXAMINATION: CHEST SINGLE (PORTABLE) INDICATION: Central line placement COMPARISON: Abdominal CT 08/14/2019, Chest CT 08/11/2019 FINDINGS: AP view TUBES and LINES: Right IJ central venous catheter, tip in the low superior vena cava.. LUNGS: Low lung volumes. Bilateral central lower lobe airspace opacities. Prominent central pulmonary vasculature. PLEURA: No pleural effusion or pneumothorax. HEART AND MEDIASTINUM: The cardiomediastinal silhouette is enlarged. BONES AND SOFT TISSUES: No acute osseous lesion. Soft tissues are unremarkable. UPPER ABDOMEN: No free air under the diaphragm. IMPRESSION: Bilateral central lower lobe airspace opacities likely reflect atelectasis as seen on abdominal CT 08/14/2019. In the setting of cardiomegaly and pulmonary vascular congestion, edema is also consideration. Signed by: Joseph Espinosa DO on 08/15/2019 11:54 PM
[2019-08-16] VITALS (23 sets, daily range): BP systolic 98–120; BP diastolic 38–95
[2019-08-16] MEDS: CLINDAMYCIN PHOS 900MG/ 50ML 50 ML IV SCH ×5 (00:22→23:43)
[2019-08-16] MEDS: NOREPINEPHRINE 8 MG/D5W 250 ML 250 ML IV SCH ×2 (00:22→22:07)
[2019-08-16] MEDS: ALBUTEROL/IPRATROPIUM 3 ML NEB NEB SCH ×4 (00:34→19:20)
[2019-08-16] MEDS: VANCOMYCIN 1GM/NS 250 ML 250 ML IV SCH ×2 (03:12→14:23)
[2019-08-16] MEDS: CEFEPIME 1GM/NS 0.9% 50 ML 50 ML IV SCH ×2 (04:14→16:42)
[2019-08-16 06:03] LABS: BASOPHILS # (AUTO) 0.1 (0.0-0.1); BASOPHILS % 0.3 % (0.0-1.0); EOSINOPHILS # (AUTO) 0.1 (0.0-0.4); EOSINOPHILS % 0.3 % (0.0-6.0); HEMATOCRIT 26.2 % (38.2-49.6); HEMOGLOBIN 8.5 g/dL (14.0-18.0); LYMPHOCYTES # (AUTO) 1.5 (1.0-3.2); LYMPHOCYTES % 5.4 % (18.0-39.1); MEAN CORPUSCULAR HEMOGLOBIN 30.7 pg (28-32); MEAN CORPUSCULAR HGB CONC 32.4 g/dL (31-35); MEAN CORPUSCULAR VOLUME 94.6 fL (81-99); MONOCYTES % 7.3 % (4.4-11.3); NEUTROPHILS # (AUTO) 21.7 (2.1-6.9); NEUTROPHILS % 81.2 % (38.7-80.0); PLATELET COUNT 482 x10e3/uL (140-360); RED BLOOD COUNT 2.77 x10e6/uL (4.3-5.7); RED CELL DISTRIBUTION WIDTH 14.6 % (11.7-14.4)
[2019-08-16 06:26] LABS: ANION GAP 18.2 mmol/L (8-16); CALCIUM 7.2 mg/dL (8.4-10.2); CREATININE, SERUM 2.37 mg/dL (0.72-1.25); POTASSIUM 3.2 mmol/L (3.5-5.1)
--- NOTE | 2019-08-16 08:09 | NUR ---
Pt placed on PT hold d/t transfer from MS2 to ICU for higher level of care. Please place new PT orders when appropriate to resume skilled PT services. Thank you. Addendum: 08/16/19 at 0810 by ISAIAH DOTSON PTA Amended: Links added.
[2019-08-16 08:17] LABS: PLATELET ESTIMATE SLIGHTLY INCREASED; RBC MORPHOLOGY COMMENT NORMAL
[2019-08-16] MEDS: BALSAM PERU/CASTOR OIL 60 GM OINT...G. TP SCH (09:00)
[2019-08-16] MEDS: MUPIROCIN 2% OINT 22 GM TUBE TOP SCH ×2 (09:00→16:48)
[2019-08-16] MEDS: SENNOSIDES 8.6 MG TAB PO SCH ×2 (09:16→16:47)
[2019-08-16] MEDS: ASPIRIN 81 MG CHEW TAB PO SCH (09:16)
[2019-08-16] MEDS: INSULIN LISPRO 100 UNIT/1 ML 3ML VIAL SQ SCH ×4 (09:21→20:48)
[2019-08-16] MEDS ORDERED: POTASSIUM CHLORIDE 10MEQ EA PO ONE (10:00)
[2019-08-16] MEDS: MORPHINE SULFATE INJ 4 MG/ML INJ 1ML IV PRN ×3 (12:30→18:42)
--- NOTE | 2019-08-16 13:48 | Progress Note ---
DATE: 08.16.19 SUBJECTIVE: Status post debridement of the left thigh on limited IV fluids and Levophed. He feels okay, states "his breathing is okay." Chest x-ray yesterday showed some congestion. PHYSICAL EXAMINATION: VITAL SIGNS: Temperature 97.7, pulse 80, blood pressure 112/53. CHEST: Occasional crackles at the bases. CARDIAC: Normal. HEART: Normal heart tones. Rhythm sounds regular. EXTREMITIES: Trace edema. LABORATORY DATA: Chemistry showed K of 3.2, serum CO2 of 19, creatinine 2.37, BUN of 64, calcium 7.2. ASSESSMENT: 1. Acute tubular necrosis, starting to get some fluid overload. 2. Hypotension requiring pressors. 3. Metabolic acidosis. PLAN: Continue blood pressure support. Start midodrine. I cut down the fluid, but after reviewing the x-ray we will completely stop it. We will restart his diuretics. Replace potassium. We will follow along. MD RITA Castillo/JUANCHO /[id number] MTDD
[2019-08-16] MEDS: FUROSEMIDE 40 MG TAB PO SCH (18:13)
[2019-08-16] MEDS: INSULIN GLARGINE 100 UNITS/ML VIAL SQ SCH (21:00)
[2019-08-17] VITALS (24 sets, daily range): BP systolic 104–156; BP diastolic 40–135
[2019-08-17] MEDS: ALBUTEROL/IPRATROPIUM 3 ML NEB NEB SCH ×4 (02:05→19:00)
[2019-08-17] MEDS: VANCOMYCIN 1GM/NS 250 ML 250 ML IV SCH ×2 (03:12→15:57)
[2019-08-17 05:09] LABS: BASOPHILS # (AUTO) 0.1 (0.0-0.1); BASOPHILS % 0.3 % (0.0-1.0); EOSINOPHILS # (AUTO) 0.3 (0.0-0.4); EOSINOPHILS % 0.9 % (0.0-6.0); HEMATOCRIT 25.9 % (38.2-49.6); HEMOGLOBIN 8.6 g/dL (14.0-18.0); LYMPHOCYTES # (AUTO) 1.3 (1.0-3.2); LYMPHOCYTES % 4.4 % (18.0-39.1); MEAN CORPUSCULAR HGB CONC 33.2 g/dL (31-35); MEAN CORPUSCULAR VOLUME 93.5 fL (81-99); MONOCYTES # (AUTO) 1.8 (0.2-0.8); MONOCYTES % 6.4 % (4.4-11.3); NEUTROPHILS # (AUTO) 24.2 (2.1-6.9); NEUTROPHILS % 83.4 % (38.7-80.0); PLATELET COUNT 575 x10e3/uL (140-360); RED BLOOD COUNT 2.77 x10e6/uL (4.3-5.7); RED CELL DISTRIBUTION WIDTH 14.6 % (11.7-14.4)
[2019-08-17 05:30] LABS: ANION GAP 16.1 mmol/L (8-16); CALCIUM 7.5 mg/dL (8.4-10.2); CREATININE, SERUM 1.56 mg/dL (0.72-1.25); POTASSIUM 3.1 mmol/L (3.5-5.1)
[2019-08-17] MEDS: FUROSEMIDE 40 MG TAB PO SCH (06:35)
[2019-08-17] MEDS: CEFEPIME 1GM/NS 0.9% 50 ML 50 ML IV SCH ×2 (06:35→16:10)
[2019-08-17] MEDS: CLINDAMYCIN PHOS 900MG/ 50ML 50 ML IV SCH ×3 (06:35→17:32)
[2019-08-17 06:45] LABS: ANISOCYTOSIS SLIGHT; BAND NEUTROPHILS % (MANUAL) 2 %; EOSINOPHILS % (MANUAL) 2 % (0-7); LYMPHOCYTES % (MANUAL) 1 % (19-48); METAMYELOCYTES % (MANUAL) 2 % (0-0); MONOCYTES % (MANUAL) 8 % (3.4-9.0); NEUTROPHILS % (MANUAL) 85 % (40-74); PLATELET ESTIMATE MODERATELY INCREASED; PLATELET MORPHOLOGY COMMENT NORMAL; RBC MORPHOLOGY COMMENT NORMAL
[2019-08-17] MEDS: INSULIN LISPRO 100 UNIT/1 ML 3ML VIAL SQ SCH ×4 (07:30→21:00)
[2019-08-17] MEDS: SENNOSIDES 8.6 MG TAB PO SCH ×3 (09:00→17:00)
[2019-08-17] MEDS: MUPIROCIN 2% OINT 22 GM TUBE TOP SCH ×3 (09:29→17:32)
[2019-08-17] MEDS: ASPIRIN 81 MG CHEW TAB PO SCH (09:29)
[2019-08-17] MEDS: BALSAM PERU/CASTOR OIL 60 GM OINT...G. TP SCH ×2 (09:29→13:10)
[2019-08-17] MEDS: MORPHINE SULFATE INJ 4 MG/ML INJ 1ML IV PRN ×2 (09:55→20:12)
--- NOTE | 2019-08-17 10:00 | NUR ---
Change of condition. Pt is exhibiting odd behavoir. He is refusing treatments and care from nursing. Pt is having difficulty with swallowing and tongue coordination with attempt to place water in mouth. He has normal bilateral movement and no neuro defecits noted. Dr Aleman aware of po intake difficulty. Called and spoke with Dr Greenberg. Orders for Ct head, abg received. Will monitor.
--- NOTE | 2019-08-17 11:47 | Diagnostic Imaging Report ---
EXAMINATION: Head CT HISTORY: Altered mental status COMPARISON: None available TECHNIQUE: Multidetector axial images were obtained without contrast from the foramen magnum to the vertex . The images were reconstructed using brain and bone algorithms. Thin section brain images were reformatted into coronal and sagittal planes. Image quality: Motion/streaking artifact limits the evaluation of the skull base and posterior cranial fossa. Dose modulation, iterative reconstruction, and/or weight based adjustment of the mA/kV was utilized to reduce the radiation dose to as low as reasonably achievable. Image quality: Artifact from patient's motion limits evaluation of the study FINDINGS: Parenchyma: 1. No abnormal densities. 2. No mass or hemorrhage. No CT evidence of acute territorial vascular insult. Extra-axial spaces:No abnormal density. No extra-axial fluid collections Brain volume: Normal for age. Ventricles: No hydrocephalus or displacement. Arteries: No density suggestive of thrombus. Dural sinuses: No abnormal density. Extra-axial spaces: No abnormal density. Foramen magnum: No mass, Chiari malformation, or basilar invagination. Sella: No obvious mass. Paranasal/mastoid sinuses: Imaged portions unremarkable. Skull/Scalp: No lytic or blastic lesions. No fractures. IMPRESSION: Suboptimal study due to patient's motion, grossly no acute intracranial abnormalities. Signed by: Dr. Leena Oden M.D. on 08/17/2019 11:44 AM
[2019-08-17] MEDS ORDERED: MAGNESIUM SULFATE 2GM/50ML 50 ML IV ONE (12:30)
--- NOTE | 2019-08-17 12:34 | Progress Note ---
DATE: 08/17/2019 SUBJECTIVE: He has been making urine, but overall appears sicker, having more trouble breathing, somewhat obtunded. Creatinine is 1.56, BUN 61. I's and O's were net even, still needing some pressors. Urine output was 1700 mL. PHYSICAL EXAMINATION: GENERAL: Lying in bed, appears ill. VITAL SIGNS: Temperature 98.7, blood pressure 121/54, and pulse 92. CHEST: Scattered rhonchi. EXTREMITIES: Trace edema. NEURO: Appears drowsy. Occasionally he open his eyes to voice. LABORATORY DATA: K is 3.1. Serum CO2 of 19, creatinine 1.56. ASSESSMENT: Acute kidney injury, chronic kidney disease stage 3, appears to be fluid overload. Currently behaving like he may be septic. PLAN: Change to IV Lasix 40 mg b.i.d. Monitor I's and O's. At this point, no emergent dialysis is needed. However, he does appear to be in the process of taking a turn for the worse and we will monitor closely for any further renal support. Avoid nephrotoxins. Agree withholding an angiotensin receptor blockers and spironolactone, and replace the potassium IV. We will follow along sincerely. MD RITA Castillo/JUANCHO /[id number]
[2019-08-17] MEDS: POTASSIUM CHLORIDE 20MEQ/100ML 100 ML IV ONE ×2 (13:18→13:43)
[2019-08-17 13:23] LABS: ABG HCO3 19 mmol/L (23-28); ABG PCO2 37 mmHg (41-51); ABG PH 7.31 (7.31-7.41); ABG PO2 65 mmHg (80-105)
[2019-08-17] MEDS ORDERED: POTASSIUM CHLORIDE 20MEQ/100ML 200 ML IV ONE (13:30)
--- NOTE | 2019-08-17 13:33 | NUR ---
Nutrition Intervention Note RD Recommendation(s) for Physician: -Consider 2 cardiac, 1800 ADA diet per MD, texture per speech. -Recommend MICROBIOLOGICAL LABORATORY TECHNICIAN eval d/t the nurse reporting the pt having chewing/swallowing difficulty. Plan of Care: RD following, monitoring for tolerance and adequacy. Nutrition reason for involvement: Follow up RD Assessment 08/17: Follow up: Discussed pt in rounds. Nurse reports the pt is not improving and per progress note pt appears sicker. Pt is status post debridement of the left thigh, was on levophed but per nurse is off now. Pt was observed in the ICU resting with nasal cannula in place, daughter at bedside. Per nurse the pt developed chewing/swallowing issues this morning and has not eaten much lately. Pt has fluid overload, was started on lasix and IVF has been d/c. Per chest x-ray yesterday, the pt had come congestion. Per MD note, pt does not need dialysis yet, but needs to be monitored. Will continue to monitor. (08/13/2019) Chart reviewed. Labs and meds reviewed. Initial encounter with patient. Pt with C/O biting/chewing difficulty related to poor fitting dentures as evidenced by pt having difficulty eating regular textures. Offered pt a texture modification and he refused, but his daughter requested a texture modification. Pt denies nausea, vomiting or diarrhea. Pt states that he's not a big eater. No significant wt changes. Pt can feed himself, but his daughter helps to feed the pt. Principal Problems/Diagnoses: CAP PMH: diabetes, morbid obesity, progressive dyspnea GI: Abd: soft, non tender, large, LBM: 08/17 Skin: left thigh wound Labs: 08/17: K 3.1, Cl 108, CO2 19, BUN 61, Creat 1.56, Gluc 145, Ca 7.5 Meds: abx, zofran, lantus, glargine,senokot, humalog, potassium chloride lasix, Ht:72 in Wt:375 lbs BMI:50.9kg/m^2 IBW:178 lbs Malnutrition Evaluation (08/17) The patient does not meet criteria for a specified degree of malnutrition at this time. Will re-evaluate at follow-up as appropriate. Supporting Evidence: Fluid accumulation: trace edema Nutrition Prescription (Diet Order): ADA Diet 1800 Estimated Nutritional Needs: Calories: 3544-7032(22-25 kcal/day) Weight used : IBW: 80.9 kg Protein : 81-120(1-1.5) Weight used: IBW: 80.9 kg Diet Adequacy: Not meeting calorie needs, Not meeting protein needs Diet Education Needs Assessment: Diet education indicated, but patient not appropriate for education at this time. Nutrition Care Level: mod Nutrition Diagnosis: Inadequate energy intake related to medical condition as evidenced by nurses reports of poor intake and chewing/swallowing difficulty. Goal: Patient will meet 75-100% of estimated needs by follow up Progress: N/A Interventions: Carb, mineral (sodium), altered texture-modified diet, Prescription medications, Collaboration with other providers Monitoring/Evaluation: -Total energy intake, Total protein intake, Prescription medication, Modified diet, Signed: Massiel Ponce RD, LD
[2019-08-17] MEDS ORDERED: FUROSEMIDE INJ 10 MG/ML 4 ML VIAL IV ONE (17:00)
--- NOTE | 2019-08-17 19:00 | NUR ---
Bedside report received from Anel RODRIGUES. Pt received resting in bed with eyes open, oriented to self only, refusing SPO2% finger monitor, argumentative which both the pts family and Anel RN report have been occurring throughout the dayshift as well, garcia to gravity, rotational bed in use and in lowest and locked position. Pts family member to stay the night. Care plan reviewed.
[2019-08-17] MEDS: INSULIN GLARGINE 100 UNITS/ML VIAL SQ SCH (21:00)
[2019-08-17] MEDS: NOREPINEPHRINE 8 MG/D5W 250 ML 250 ML IV SCH (21:18)
[2019-08-18] VITALS (31 sets, daily range): BP systolic 92–148; BP diastolic 37–124
[2019-08-18] MEDS ORDERED: SODIUM CHLORIDE 0.9% 100 ML ONE ×2 (00:09→09:10)
[2019-08-18] MEDS: CLINDAMYCIN PHOS 900MG/ 50ML 50 ML IV SCH ×4 (00:21→19:02)
[2019-08-18] MEDS: VANCOMYCIN 1GM/NS 250 ML 250 ML IV SCH (04:02)
[2019-08-18] MEDS: CEFEPIME 1GM/NS 0.9% 50 ML 50 ML IV SCH ×2 (04:59→17:36)
[2019-08-18 05:20] LABS: BASOPHILS # (AUTO) 0.1 (0.0-0.1); BASOPHILS % 0.4 % (0.0-1.0); EOSINOPHILS # (AUTO) 0.3 (0.0-0.4); EOSINOPHILS % 0.9 % (0.0-6.0); HEMATOCRIT 25.3 % (38.2-49.6); HEMOGLOBIN 8.2 g/dL (14.0-18.0); LYMPHOCYTES # (AUTO) 1.5 (1.0-3.2); LYMPHOCYTES % 4.9 % (18.0-39.1); MEAN CORPUSCULAR HEMOGLOBIN 30.4 pg (28-32); MEAN CORPUSCULAR HGB CONC 32.4 g/dL (31-35); MEAN CORPUSCULAR VOLUME 93.7 fL (81-99); MONOCYTES # (AUTO) 1.8 (0.2-0.8); MONOCYTES % 5.7 % (4.4-11.3); NEUTROPHILS # (AUTO) 25.6 (2.1-6.9); NEUTROPHILS % 83.3 % (38.7-80.0); PLATELET COUNT 665 x10e3/uL (140-360); RED CELL DISTRIBUTION WIDTH 14.8 % (11.7-14.4)
[2019-08-18 05:32] LABS: INR 1.31; PROTHROMBIN TIME 16.9 seconds (11.9-14.5)
[2019-08-18 05:33] LABS: PARTIAL THROMBOPLASTIN TIME 48.2 seconds (23.8-35.5)
[2019-08-18 05:42] LABS: BLOOD UREA NITROGEN 54 mg/dL (7-26); BUN/CREATININE RATIO 50 (6-25); CALCIUM 7.9 mg/dL (8.4-10.2); CARBON DIOXIDE 23 mmol/L (22-29); CHLORIDE 109 mmol/L (98-107); CREATININE, SERUM 1.07 mg/dL (0.72-1.25); EST GLOMERULAR FILTRATION RATE > 60 ML/MIN (60-); GLUCOSE 146 mg/dL (74-118); MAGNESIUM 1.7 MG/DL (1.3-2.1); PHOSPHORUS 3.5 MG/DL (2.3-4.7); SODIUM 142 mmol/L (136-145)
[2019-08-18] MEDS: ALBUTEROL/IPRATROPIUM 3 ML NEB NEB SCH ×4 (06:35→19:30)
[2019-08-18] MEDS: INSULIN LISPRO 100 UNIT/1 ML 3ML VIAL SQ SCH ×4 (07:30→20:57)
[2019-08-18] MEDS ORDERED: POTASSIUM CHLORIDE 20MEQ/100ML 200 ML IV ONE (08:30)
[2019-08-18] MEDS: SENNOSIDES 8.6 MG TAB PO SCH ×2 (09:00→17:00)
[2019-08-18] MEDS: ASPIRIN 81 MG CHEW TAB PO SCH (09:00)
[2019-08-18] MEDS: MUPIROCIN 2% OINT 22 GM TUBE TOP SCH ×2 (10:06→19:03)
[2019-08-18] MEDS: BALSAM PERU/CASTOR OIL 60 GM OINT...G. TP SCH (10:06)
[2019-08-18] MEDS ORDERED: BACITRACIN 50,000 UNIT VIAL ONE (11:00)
[2019-08-18] MEDS ORDERED: LIDOCAINE HCL 1% 30ML-PF VIAL ONE (11:39)
[2019-08-18 11:51] LABS: PLATELET ESTIMATE MODERATELY INCREASED; PLATELET MORPHOLOGY COMMENT FEW LARGE
--- NOTE | 2019-08-18 12:06 | Diagnostic Imaging Report ---
Chest, 1 view, 08/18/2019. History: Crackles. Comparison: 08/15/2018. Findings: The cardiomediastinal silhouette and pulmonary vasculature are prominent with unchanged bilateral perihilar opacities. Right IJ central line is again noted. There are no acute osseous or soft tissue abnormalities. Impression: No significant change. Signed by: Reinaldo Pedro on 08/18/2019 12:02 PM
--- NOTE | 2019-08-18 12:35 | Diagnostic Imaging Report ---
CT NECK AND FACE WITHOUT IV CONTRAST History: Swelling of the left neck and cheek Comparison studies: None Technique: Axial images were obtained from the skull base to the thoracic inlet. Coronal and sagittal images reconstructed from the axial data. Intravenous contrast: None Dose modulation, iterative reconstruction, and/or weight based adjustment of the mA/kV was utilized to reduce the radiation dose to as low as reasonably achievable. Findings: Evaluation of the neck is limited due to the absence of intravenous contrast. In spite of this limitation, Soft tissues: Diffuse enlargement of the left parotid superficial lobe with surrounding fatty stranding and thickened platysma muscle at the left lateral suprahyoid neck. Punctate calcifications within the largest parotid gland. Small skin defect at the left lateral cheek overlying the anterior aspect of the enlarged left parotid gland Lymph nodes: No radiographically significant adenopathy. Vessels: Cannot evaluate. Atherosclerotic calcifications of the distal common carotid arteries, carotid bulbs and siphons. Atherosclerotic calcifications of the thoracic aorta. Partially visualized right internal jugular catheter with tip at the SVC. The main pulmonary artery measuring 4.4 cm, acute enlarged, suggestive of pulmonary hypertension. Glands (thyroid and submandibular): Normal in size and symmetric. No masses. Orbits: No abnormalities. Paranasal sinuses: Small mucus retention cysts at the right sphenoid and left maxillary sinuses. Temporal bones: No abnormalities. Skull base and facial bones: Intact. Cervical spine: No high-grade canal stenosis or foraminal narrowing IMPRESSION: 1. Enlarged superficial lobe of the left parotid gland with significant surrounding fatty stranding and thickened platysma muscle at the suprahyoid neck, with associated punctate calcifications within the parenchyma and adjacent skin laceration, this is suggestive of inflammatory/infectious etiology, clinical correlation recommended. No significant drainable fluid collection, although evaluation is limited due to the lack of IV contrast. 2. Enlarged pulmonary artery, suggestive of retention. 3. Diffuse atherosclerotic disease. Signed by: DR Cruz Lombardi M.D. on 08/18/2019 12:32 PM
--- NOTE | 2019-08-18 12:42 | NUR ---
Dr Chandler consult called the the physician's answering service.
[2019-08-18] MEDS ORDERED: SODIUM HYPOCHLORITE 0.25% 480 ML SOLN IR ONE (13:15)
--- NOTE | 2019-08-18 13:15 | NUR ---
Received from OR, intubated, sedated. Pressors were used in OR. Will monitor.
--- NOTE | 2019-08-18 13:51 | Operative Report ---
DATE OF PROCEDURE: 08/18/2019 SURGEON: Kvng Brandt MD PREOPERATIVE DIAGNOSES: 1. Necrotizing infection, left groin and upper thigh. 2. Left parotiditis. POSTOPERATIVE DIAGNOSES: 1. Necrotizing infection, left groin and upper thigh. 2. Left parotiditis. PROCEDURES: 1. Excisional debridement of necrotizing infection, left groin and upper thigh. Skin, subcutaneous tissue, and fascia of 1500 square cm. 2. Aspiration of left parotid gland. SUBSTATION SUPERVISOR: None. ANESTHESIA: General. INDICATIONS AND FINDINGS: The patient is an 79-year-old male, had a debridement of the left groin area 3 days ago, and was returned for additional debridement. He also has developed swelling in the left parotid gland, suggestive of parotiditis. At Surgery, there was no fluid within the parotid gland. Aspiration did not reveal any purulent fluid. In the left groin, there was still additional necrotic skin, subcutaneous tissue, and fascia. Total area debridement was about 1500 square cm. TECHNIQUE: After adequate general endotracheal anesthesia, the patient is in supine position, and the left groin area was prepped and draped in a sterile fashion with Betadine solution. There was obviously necrotic skin, which was excised. There was some necrotic subcutaneous tissue and fascia, all this was excised back to healthy bleeding tissue. The area of debridement was about 1500 square cm. The debridement extended laterally to the level of the buttocks and medially to the medial thigh. Hemostasis was achieved with electrocautery once all the necrotic tissue was excised. The wound was irrigated with a [employer] kennel worker, it was then dressed open with antibiotic solution, moistened gauze, and sterile dressing applied. After this was completed, using sterile technique the left parotid gland was aspirated, there was no fluid was obtained from the gland. The patient tolerated the procedure well. Estimated blood loss was 200 mL. There were no complications. All counts were correct and the patient was taken to the ICU in critical condition. Kvng Brandt MD DWG/MODL /[id number]
--- NOTE | 2019-08-18 14:26 | NUR ---
ST NOTE: PT now intubated after procedure, Handoff form RAVI Berrios pt has large mass on left neck thought to be contributing to difficulty swallowing, will continue to follow and complete BSE when pt appropriate.
[2019-08-18] MEDS ORDERED: SUCCINYLCHOLINE 200 MG/10 ML SYR ONE (14:27)
[2019-08-18] MEDS ORDERED: ONDANSETRON HCL INJ 2MG/ML 2ML 2 MG/ML VIAL ONE (14:27)
[2019-08-18] MEDS ORDERED: SEVOFLURANE INHAL SOLN 250 ML PEN BTL ONE (14:27)
[2019-08-18] MEDS ORDERED: LIDOCAINE HCL 2% LOCAL INJ 5 ML SDV VIAL INJ ONE (14:27)
[2019-08-18] MEDS ORDERED: PROPOFOL IV EMULSION 10 MG/ML 20 ML VIAL ONE (14:27)
[2019-08-18] MEDS ORDERED: ROCURONIUM BROMIDE 10 MG/ML 5ML VIAL ONE (14:27)
[2019-08-18] MEDS ORDERED: PHENYLEPHRINE HCL 1% 10 MG/ML VIAL ONE (14:27)
[2019-08-18] MEDS: FENTANYL CITRATE INJ 2,000 MCG in SODIUM CHLORIDE 0.9% 250ML 210 ML IV PRN (14:30)
[2019-08-18 14:51] LABS: ABG PCO2 35 mmHg (41-51); ABG PH 7.35 (7.31-7.41); ABG PO2 122 mmHg (80-105)
[2019-08-18 14:52] LABS: ABG HCO3 20 mmol/L (23-28)
--- NOTE | 2019-08-18 17:57 | Progress Note ---
DATE: 08/18/2019 SUBJECTIVE: Mr. Valerio underwent a 2nd debridement today. He is intubated. PHYSICAL EXAMINATION: GENERAL: Intubated and sedated. VITAL SIGNS: Stable. Heart rate 89, respiration 19, blood pressure 148/24, temperature 97.6. No fever for the last few day. HEENT: He is not icteric, but he does have left side parotid swelling with edema and tenderness. NECK: Supple. CHEST: Few crackles. LABORATORY DATA: His white count today is 30.69. His sodium 142, potassium 3.0, creatinine 1.07. MEDICATIONS: The patient was currently on clindamycin, cefepime and vancomycin. IMPRESSION AND PLAN: Sepsis, necrotizing soft tissue infection. We will increase the cefepime to 1 g q.8. We will increase vancomycin to 1.5 g q.12. We will follow. MD KENNEY Che/JUANCHO /[id number]
[2019-08-18] MEDS ORDERED: FENTANYL CITRATE/PF 100MCG/2 ML INJ ONE (18:02)
[2019-08-18] MEDS ORDERED: KETAMINE HCL INJ 50 MG/ML 10 ML VIAL ONE (18:02)
[2019-08-18] MEDS ORDERED: VASOPRESSIN 100 UNIT in DEXTROSE 5% 100ML 100 ML IV PRN (19:45)
[2019-08-18] MEDS: INSULIN GLARGINE 100 UNITS/ML VIAL SQ SCH (21:00)
[2019-08-18] MEDS: NOREPINEPHRINE 8 MG/D5W 250 ML 250 ML IV SCH (23:06)
[2019-08-19] VITALS (25 sets, daily range): BP systolic 106–143; BP diastolic 39–75
[2019-08-19] MEDS: CLINDAMYCIN PHOS 900MG/ 50ML 50 ML IV SCH ×4 (00:06→18:00)
[2019-08-19] MEDS: ALBUTEROL/IPRATROPIUM 3 ML NEB NEB SCH ×4 (01:00→19:15)
--- NOTE | 2019-08-19 01:48 | Consultation ---
DATE OF CONSULTATION: 08/18/2019 HISTORY OF PRESENT ILLNESS: I was kindly asked to see this 79-year-old man for evaluation of left-sided facial and neck swelling. The patient presented with groin abscess and had a sudden onset of swelling of the left face during the night prior to consultation and subsequent CT scan was consistent with parotiditis. His history of present illness, past medical history, and past surgical history reviewed in detail in the chart. REVIEW OF SYSTEMS: Unobtainable because of the patient was intubated and on the ventilator. On physical examination, he had diffuse swelling over the entire left parotid gland extending above the tragus and down over the angle of the mandible into the upper neck. There was no fluctuance palpated. He has thick secretions in the oral cavity. There was no pus expressed from Stensen's duct. The remainder of his examination was noncontributory. ASSESSMENT: Left parotiditis. PLAN: 1. Oral hygiene regimen. 2. Keep the patient as hydrated as possible. 3. Continuation of IV antibiotics with consideration of Infectious Disease consultation based on clinical course. Thank you very much for this consultation. Nic Vidal MD LRKate/MODL /[id number]
--- NOTE | 2019-08-19 02:14 | Progress Note ---
DATE: 08/18/2019 SUBJECTIVE: More conversant today. Blood pressure is holding. Intake 1.3 L. Output 1.8 L. PHYSICAL EXAMINATION: GENERAL: Chronically ill-appearing, but in no distress. Pulse 89, sounds regular, blood pressure 148/24, temperature 98.1 last night. HEENT: Atraumatic. Nasal cannula in place. CHEST: Occasional rhonchi. EXTREMITIES: Trace edema. Left thigh bandaged. NEURO: More alert today, speaking in full sentences. NECK: Thick, unable to see JVD. However, because of his body habitus that exam is limited. CARDIAC: Normal heart tones, it sounds regular at this time. LABORATORY DATA: White count is up to 30,000, hemoglobin of 8.2, platelets of 665. Creatinine is 1.07, BUN 54, potassium is 3.0, calcium is 7.9, phosphorus and magnesium in range. ASSESSMENT: 1. Acute tubular necrosis, probable chronic kidney disease stage 3 from diabetic hypertensive end-organ damage. 2. Necrotizing cellulitis status post debridement. 3. Fluid overload. 4. Hypokalemia. PLAN: Replace potassium. Continue IV Lasix, keep blood pressure support as needed. Would avoid giving him large doses of IV fluids and avoid NSAIDs. We will follow along. MD JOSSELINE CastilloK/DIEGOL /[id number]
[2019-08-19] MEDS: CEFEPIME 1GM/NS 0.9% 50 ML 50 ML IV SCH ×2 (05:00→16:30)
[2019-08-19 05:55] LABS: BASOPHILS # (AUTO) 0.1 (0.0-0.1); BASOPHILS % 0.3 % (0.0-1.0); EOSINOPHILS # (AUTO) 0.3 (0.0-0.4); EOSINOPHILS % 0.8 % (0.0-6.0); LYMPHOCYTES # (AUTO) 1.8 (1.0-3.2); LYMPHOCYTES % 5.3 % (18.0-39.1); MEAN CORPUSCULAR HEMOGLOBIN 30.3 pg (28-32); MEAN CORPUSCULAR HGB CONC 32.4 g/dL (31-35); MEAN CORPUSCULAR VOLUME 93.7 fL (81-99); MONOCYTES # (AUTO) 2.2 (0.2-0.8); MONOCYTES % 6.8 % (4.4-11.3); NEUTROPHILS # (AUTO) 26.6 (2.1-6.9); NEUTROPHILS % 80.3 % (38.7-80.0); PLATELET COUNT 657 x10e3/uL (140-360); RED BLOOD COUNT 2.21 x10e6/uL (4.3-5.7); RED CELL DISTRIBUTION WIDTH 14.8 % (11.7-14.4)
[2019-08-19 06:11] LABS: ANION GAP 14.1 mmol/L (8-16); CALCIUM 7.9 mg/dL (8.4-10.2); CREATININE, SERUM 1.54 mg/dL (0.72-1.25); POTASSIUM 3.1 mmol/L (3.5-5.1)
[2019-08-19 06:23] LABS: HEMATOCRIT 20.7 % (38.2-49.6); HEMOGLOBIN 6.7 g/dL (14.0-18.0)
[2019-08-19 06:30] LABS: IRON 26 ug/dL (65-175); TRANSFERRIN < 70 mg/dL (174-364)
[2019-08-19] MEDS ORDERED: SODIUM CHLORIDE 0.9% 250ML 250 ML IV NR (06:30)
[2019-08-19 06:49] LABS: FERRITIN 470.66 ng/mL (21.81-274.66)
[2019-08-19] MEDS: INSULIN LISPRO 100 UNIT/1 ML 3ML VIAL SQ SCH ×4 (07:30→21:00)
[2019-08-19 07:36] LABS: FOLATE 13.6 ng/mL (7.0-15.4)
[2019-08-19] MEDS ORDERED: FUROSEMIDE INJ 10 MG/ML 4 ML VIAL IV NR (08:00)
[2019-08-19] MEDS ORDERED: POTASSIUM CHLORIDE 20MEQ/100ML 200 ML IV ONE (08:00)
[2019-08-19 08:38] LABS: LYMPHOCYTES % (MANUAL) 8 % (19-48); MONOCYTES % (MANUAL) 5 % (3.4-9.0); PLATELET ESTIMATE MARKEDLY INCREASED; PLATELET MORPHOLOGY COMMENT NORMAL; RBC MORPHOLOGY COMMENT NORMAL
[2019-08-19] MEDS: ASPIRIN 81 MG CHEW TAB PO SCH (09:00)
[2019-08-19] MEDS: FUROSEMIDE INJ 10 MG/ML 4 ML VIAL IV SCH ×2 (09:00→21:53)
[2019-08-19] MEDS: SENNOSIDES 8.6 MG TAB PO SCH ×2 (09:00→17:00)
[2019-08-19] MEDS: CITRIC ACID/SODIUM CITRATE 30 ML UDC PO SCH ×3 (09:00→21:53)
[2019-08-19 09:05] LABS: MYELOCYTES % (MANUAL) 2 % (0-0); NEUTROPHILS % (MANUAL) 87 % (40-74)
[2019-08-19 09:06] LABS: GIANT PLATELETS RARE; LARGE PLATELETS FEW; PLATELET CLUMPS RARE
[2019-08-19 09:38] LABS: ABG HCO3 18 mmol/L (23-28); ABG PCO2 34 mmHg (41-51); ABG PH 7.34 (7.31-7.41); ABG PO2 101 mmHg (80-105)
[2019-08-19] MEDS: BALSAM PERU/CASTOR OIL 60 GM OINT...G. TP SCH (10:50)
--- NOTE | 2019-08-19 11:15 | Progress Note ---
DATE: 08/19/2019 SUBJECTIVE: Now intubated, on pressors. Chest x-ray still showing some fluid overload. I's and O's are nearly matched at this point. OBJECTIVE: GENERAL: On examination, lying in ICU bed, orally intubated. VITAL SIGNS: Temperature 99.3, pulse 83, and blood pressure 125/46. CHEST: Scattered rhonchi. EXTREMITIES: Trace edema. Left leg in bandage. ABDOMEN: Soft. NEURO: Sedated. IMAGING: Chest x-ray, bilateral opacities consistent with fluid overload. LABORATORY DATA: Hemoglobin is down to 6.7, platelets are still high at 657, and white count 33,000. Sodium 142, K 3.1, serum CO2 of 21, creatinine 1.54, BUN 57, and calcium 7.95. Last phosphorus was adequate. ASSESSMENT: 1. Acute kidney injury, presumed acute tubular necrosis. We will treat as acute tubular necrosis. 2. Fluid overload. 3. Mild hypokalemia. 4. Severe anemia. 5. Metabolic acidosis. PLAN: 1. Add Bicitra via feeding tube. 2. Increase furosemide to 80 mg b.i.d. with extra dose between blood transfusions. 3. Monitor I's and O's. 4. A.m. chemistries. 5. No emergent need for dialysis. 6. We will closely watch for any evolving kidney injury. Sincerely, Collins Huddleston. MD JOSSELINE CastilloK/MODL /[id number]
[2019-08-19] MEDS ORDERED: SODIUM CHLORIDE 0.9% 250ML 250 ML ONE (12:36)
--- NOTE | 2019-08-19 15:14 | NUR ---
Nutrition Intervention Note RD Recommendation(s) for Physician: -TF recommendation if medically feasible and hemodynamically stable (levo must be less than 5 mcg/min, MAPS must be higher than 65 to feed): Trickle feeds of Vital HP at 10 ml/hr advance as tolerated and when medically feasible to goal rate of 65 ml/hr with 30 ml water flushed every 4 hours. (1560 kcal, 136 gram protein) -IVF management and additional flushes per MD. -Consider 2 cardiac, 1800 ADA diet per MD, texture per speech when pt is extubated. Plan of Care: RD following, monitoring for tolerance and adequacy. EN recs. Nutrition reason for involvement: Follow up RD Assessment 08/19: Follow up: Pt has been intubated and is sedated on fentanyl, no propofol. Per nurse pt is on 12 mcg of levo currently but is trying to decrease if medically feasible. Provided EN recommendations above if MD would like to start tube feeds. Discussed pt in rounds: feeding the pt is not the plan currently, they want to try to extubate the pt tmrw. Per progress note- chest xray is showing some fluid overload and there is no need for emergent dialysis. Speech was consulted, MBS is pending after extubation. Pt is meeting 88% of his recommended energy needs and 111% of his recommended protein needs with TF recommendations above. Will continue to monitor. 08/17: Follow up: Discussed pt in rounds. Nurse reports the pt is not improving and per progress note pt appears sicker. Pt is status post debridement of the left thigh, was on levophed but per nurse is off now. Pt was observed in the ICU resting with nasal cannula in place, daughter at bedside. Per nurse the pt developed chewing/swallowing issues this morning and has not eaten much lately. Pt has fluid overload, was started on lasix and IVF has been d/c. Per chest x-ray yesterday, the pt had come congestion. Per MD note, pt does not need dialysis yet, but needs to be monitored. Will continue to monitor. (08/13/2019) Chart reviewed. Labs and meds reviewed. Initial encounter with patient. Pt with C/O biting/chewing difficulty related to poor fitting dentures as evidenced by pt having difficulty eating regular textures. Offered pt a texture modification and he refused, but his daughter requested a texture modification. Pt denies nausea, vomiting or diarrhea. Pt states that he's not a big eater. No significant wt changes. Pt can feed himself, but his daughter helps to feed the pt. Principal Problems/Diagnoses: CAP PMH: diabetes, morbid obesity, progressive dyspnea GI: Abd: soft, non tender, large, LBM: 08/17 Skin: left thigh wound Labs: 08/19: POC GM 207 08/17: K 3.1, Cl 108, CO2 19, BUN 61, Creat 1.56, Gluc 145, Ca 7.5 Meds: abx, zofran, lantus, glargine,senokot, humalog, potassium chloride lasix, levophed, fentanyl, Ht: 72 in Wt: 366 lbs BMI: 50.6 kg/m^2 IBW: 178 lbs Malnutrition Evaluation (08/17) The patient does not meet criteria for a specified degree of malnutrition at this time. Will re-evaluate at follow-up as appropriate. Supporting Evidence: Fluid accumulation: trace edema Nutrition Prescription (Diet Order): NPO Estimated Nutritional Needs: Calories: 7655-1015 (22-25 kcal/day) Weight used : IBW: 80.9 kg -intubated Protein : 121-161 gram/protein/day (1.2-1.5) Weight used: IBW: 80.9 kg-intubated Diet Adequacy: Not meeting calorie needs, Not meeting protein needs Diet Education Needs Assessment: Diet education indicated, but patient not appropriate for education at this time. Nutrition Care Level: mod Nutrition Diagnosis: Inadequate energy intake related to medical condition as evidenced by nurses reports of poor intake and chewing/swallowing difficulty. Goal: Patient will meet 75-100% of estimated needs by follow up Progress: not progressing Interventions: Carb, mineral (sodium), altered texture-modified diet, Prescription medications, Collaboration with other providers, modify rate of enteral nutrition, modify route of enteral nutrition, modify composition of enteral nutrition Monitoring/Evaluation: -Total energy intake, Total protein intake, formula/solution, Prescription medication, Modified diet, Signed: Massiel Ponce RD, MANJIT Addendum: 08/19/19 at 1541 by Massiel Ponce DIET Please consider advancing TF to 75 ml/hr if pt can tolerate 65 ml/hr to ensure pt is meeting 100% of his minimum calorie goals. (1800 kcal, 157 gram protein) if medically appropriate and feasible.
[2019-08-19] MEDS: VANCOMYCIN 750MG/NS 150ML IVPB 150 ML IV SCH (16:30)
--- NOTE | 2019-08-19 16:42 | Progress Note ---
DATE: 08/19/2019 SUBJECTIVE: Mr. Valerio remains in Intensive Care Unit, intubated. He is on vasopressors. LABORATORY DATA: His wound culture showing gram-negative rods. His lab, white count 24455, hemoglobin 6.7. He is getting 2 units of blood. Discussed with the . The patient had extensive family. IMPRESSION: 1. Sepsis and septic shock secondary to necrotizing soft tissue infection. Continue with antibiotic as ordered, multiple debridement as ordered. 2. Parotiditis. Seen better today. Continue local heat pad. 3. Morbidly obese patient. 4. Acute kidney injury. 5. He is going to multiorgan failure. 6. Prognosis is extremely guarded. Family is aware. We will follow. MD KENNEY Che/MODL /[id number]
[2019-08-19] MEDS ORDERED: SODIUM CHLORIDE 0.9% 100 ML ONE (18:06)
[2019-08-19] MEDS: NOREPINEPHRINE 8 MG/D5W 250 ML 250 ML IV SCH ×4 (19:20→22:58)
[2019-08-19] MEDS: INSULIN GLARGINE 100 UNITS/ML VIAL SQ SCH (21:00)
[2019-08-20] VITALS (27 sets, daily range): BP systolic 78–152; BP diastolic 31–109
[2019-08-20] MEDS: CLINDAMYCIN PHOS 900MG/ 50ML 50 ML IV SCH ×4 (00:27→18:10)
[2019-08-20] MEDS: ALBUTEROL/IPRATROPIUM 3 ML NEB NEB SCH ×5 (00:30→23:45)
--- NOTE | 2019-08-20 00:31 | Diagnostic Imaging Report ---
X-RAY RIGHT SHOULDER ONE VIEW HISTORY: Pain. COMPARISON: None available. FINDINGS: Bones: No acute displaced fracture. Osseous alignment is within normal limits. Joints: The osteophytes and joint space loss at the acromioclavicular joint. Normal glenohumeral joint alignment. Soft tissues: The soft tissues appear unremarkable. IMPRESSION: Limited evaluation of the shoulder with a single view. No acute displaced fracture or dislocation. Degenerative changes at the acromioclavicular joint. Signed by: Joseph Espinosa DO on 08/20/2019 12:27 AM
[2019-08-20] MEDS: CEFEPIME 1GM/NS 0.9% 50 ML 50 ML IV SCH (03:41)
[2019-08-20] MEDS: ACETAMINOPHEN 325 MG TAB PO PRN (03:42)
[2019-08-20] MEDS: VANCOMYCIN 750MG/NS 150ML IVPB 150 ML IV SCH ×2 (04:22→16:00)
[2019-08-20 05:43] LABS: BASOPHILS % 0.1 % (0.0-1.0); EOSINOPHILS # (AUTO) 0.4 (0.0-0.4); EOSINOPHILS % 0.9 % (0.0-6.0); HEMOGLOBIN 8.2 g/dL (14.0-18.0); LYMPHOCYTES # (AUTO) 2.7 (1.0-3.2); LYMPHOCYTES % 7.1 % (18.0-39.1); MEAN CORPUSCULAR HGB CONC 32.8 g/dL (31-35); MEAN CORPUSCULAR VOLUME 91.6 fL (81-99); MONOCYTES # (AUTO) 2.7 (0.2-0.8); MONOCYTES % 7.1 % (4.4-11.3); NEUTROPHILS # (AUTO) 29.2 (2.1-6.9); NEUTROPHILS % 76.7 % (38.7-80.0); PLATELET COUNT 693 x10e3/uL (140-360); RED BLOOD COUNT 2.73 x10e6/uL (4.3-5.7); RED CELL DISTRIBUTION WIDTH 15.4 % (11.7-14.4)
[2019-08-20 06:07] LABS: ANION GAP 14.3 mmol/L (8-16); CALCIUM 8.2 mg/dL (8.4-10.2); CREATININE, SERUM 1.66 mg/dL (0.72-1.25); MAGNESIUM 1.7 MG/DL (1.3-2.1); PHOSPHORUS 3.2 MG/DL (2.3-4.7); POTASSIUM 3.3 mmol/L (3.5-5.1)
[2019-08-20] MEDS: NOREPINEPHRINE 8 MG/D5W 250 ML 250 ML IV SCH ×2 (06:20→07:02)
[2019-08-20] MEDS: INSULIN LISPRO 100 UNIT/1 ML 3ML VIAL SQ SCH ×4 (07:30→20:45)
[2019-08-20 08:17] LABS: BAND NEUTROPHILS % (MANUAL) 2 %; EOSINOPHILS % (MANUAL) 1 % (0-7); LYMPHOCYTES % (MANUAL) 4 % (19-48); MONOCYTES % (MANUAL) 6 % (3.4-9.0); MYELOCYTES % (MANUAL) 1 % (0-0); NEUTROPHILS % (MANUAL) 85 % (40-74)
[2019-08-20 08:18] LABS: PLATELET ESTIMATE MARKEDLY INCREASED
[2019-08-20 08:19] LABS: PLATELET MORPHOLOGY COMMENT NORMAL; RBC MORPHOLOGY COMMENT NORMAL
[2019-08-20] MEDS: SENNOSIDES 8.6 MG TAB PO SCH ×2 (08:56→17:00)
[2019-08-20] MEDS: BALSAM PERU/CASTOR OIL 60 GM OINT...G. TP SCH (08:56)
[2019-08-20] MEDS: CITRIC ACID/SODIUM CITRATE 30 ML UDC PO SCH ×3 (08:56→20:38)
[2019-08-20] MEDS: ASPIRIN 81 MG CHEW TAB PO SCH (08:56)
[2019-08-20] MEDS: FUROSEMIDE INJ 10 MG/ML 4 ML VIAL IV SCH ×2 (08:56→20:37)
[2019-08-20] MEDS: MEROPENEM 500MG/ NS 50ML 50 ML IV SCH ×2 (09:00→20:38)
[2019-08-20] MEDS ORDERED: SODIUM CHLORIDE 0.9% 250ML 250 ML ONE (09:31)
[2019-08-20] MEDS ORDERED: DEXTROSE 5% 1,000 ML IV ONE ×2 (14:30→15:30)
[2019-08-20] MEDS ORDERED: POTASSIUM CHLORIDE 20MEQ/100ML 200 ML IV ONE (14:45)
[2019-08-20] MEDS: INSULIN GLARGINE 100 UNITS/ML VIAL SQ SCH (20:45)
[2019-08-21] VITALS (24 sets, daily range): BP systolic 71–154; BP diastolic 26–111
[2019-08-21] MEDS: CLINDAMYCIN PHOS 900MG/ 50ML 50 ML IV SCH ×5 (00:57→23:37)
[2019-08-21] MEDS: FENTANYL CITRATE INJ 2,000 MCG in SODIUM CHLORIDE 0.9% 250ML 210 ML IV PRN (05:54)
[2019-08-21 06:34] LABS: BASOPHILS # (AUTO) 0.1 (0.0-0.1); BASOPHILS % 0.4 % (0.0-1.0); EOSINOPHILS # (AUTO) 0.6 (0.0-0.4); EOSINOPHILS % 1.8 % (0.0-6.0); HEMATOCRIT 21.2 % (38.2-49.6); HEMOGLOBIN 7.1 g/dL (14.0-18.0); LYMPHOCYTES # (AUTO) 2.1 (1.0-3.2); LYMPHOCYTES % 6.9 % (18.0-39.1); MEAN CORPUSCULAR HEMOGLOBIN 30.5 pg (28-32); MEAN CORPUSCULAR HGB CONC 33.5 g/dL (31-35); MONOCYTES # (AUTO) 2.3 (0.2-0.8); MONOCYTES % 7.4 % (4.4-11.3); NEUTROPHILS # (AUTO) 23.8 (2.1-6.9); PLATELET COUNT 588 x10e3/uL (140-360); RED BLOOD COUNT 2.33 x10e6/uL (4.3-5.7); RED CELL DISTRIBUTION WIDTH 15.4 % (11.7-14.4)
[2019-08-21] MEDS ORDERED: FAMOTIDINE 20 MG/2 ML VIAL IV ONE (07:00)
[2019-08-21] MEDS ORDERED: SODIUM CHLORIDE 0.9% 250ML 250 ML IV ONE (07:00)
[2019-08-21 07:38] LABS: BLOOD UREA NITROGEN 53 mg/dL (7-26); BUN/CREATININE RATIO 43 (6-25); CARBON DIOXIDE 23 mmol/L (22-29); CHLORIDE 113 mmol/L (98-107); CREATININE, SERUM 1.22 mg/dL (0.72-1.25); EST GLOMERULAR FILTRATION RATE > 60 ML/MIN (60-); GLUCOSE 129 mg/dL (74-118); SODIUM 146 mmol/L (136-145)
[2019-08-21] MEDS: ALBUTEROL/IPRATROPIUM 3 ML NEB NEB SCH ×3 (07:40→19:20)
[2019-08-21] MEDS: INSULIN LISPRO 100 UNIT/1 ML 3ML VIAL SQ SCH ×4 (07:52→21:00)
[2019-08-21] MEDS: ASPIRIN 81 MG CHEW TAB PO SCH (09:00)
[2019-08-21] MEDS: CITRIC ACID/SODIUM CITRATE 30 ML UDC PO SCH ×3 (09:00→21:00)
[2019-08-21] MEDS: MEROPENEM 500MG/ NS 50ML 50 ML IV SCH ×3 (09:00→21:30)
[2019-08-21] MEDS: SENNOSIDES 8.6 MG TAB PO SCH ×2 (09:00→17:00)
[2019-08-21] MEDS: FUROSEMIDE INJ 10 MG/ML 4 ML VIAL IV SCH ×2 (09:00→21:29)
[2019-08-21] MEDS: VANCOMYCIN 1GM/NS 250 ML 250 ML IV SCH (10:00)
[2019-08-21 10:04] LABS: ABG HCO3 21 mmol/L (23-28); ABG PCO2 37 mmHg (41-51); ABG PH 7.38 (7.31-7.41); ABG PO2 94 mmHg (80-105)
[2019-08-21] MEDS ORDERED: SODIUM CHLORIDE 0.9% 250ML 250 ML ONE ×2 (10:41→14:24)
[2019-08-21 10:45] LABS: PLATELET ESTIMATE MARKEDLY INCREASED; PLATELET MORPHOLOGY COMMENT FEW LARGE; RBC MORPHOLOGY COMMENT NORMAL
[2019-08-21] MEDS: BALSAM PERU/CASTOR OIL 60 GM OINT...G. TP SCH (11:15)
[2019-08-21] MEDS ORDERED: POTASSIUM CHLORIDE 20MEQ/100ML 200 ML IV ONE (11:30)
[2019-08-21] MEDS ORDERED: SODIUM CHLORIDE 0.9% 100 ML ONE (12:46)
[2019-08-21] MEDS: INSULIN GLARGINE 100 UNITS/ML VIAL SQ SCH (21:00)
[2019-08-21] MEDS: MORPHINE SULFATE INJ 4 MG/ML INJ 1ML IV PRN (21:29)
[2019-08-22] VITALS (22 sets, daily range): BP systolic 120–166; BP diastolic 36–97
[2019-08-22 05:16] LABS: BASOPHILS # (AUTO) 0.2 (0.0-0.1); BASOPHILS % 0.5 % (0.0-1.0); EOSINOPHILS # (AUTO) 0.5 (0.0-0.4); EOSINOPHILS % 1.7 % (0.0-6.0); HEMATOCRIT 28.3 % (38.2-49.6); HEMOGLOBIN 9.2 g/dL (14.0-18.0); LYMPHOCYTES # (AUTO) 1.9 (1.0-3.2); LYMPHOCYTES % 6.6 % (18.0-39.1); MEAN CORPUSCULAR HEMOGLOBIN 30.2 pg (28-32); MEAN CORPUSCULAR HGB CONC 32.5 g/dL (31-35); MEAN CORPUSCULAR VOLUME 92.8 fL (81-99); MONOCYTES # (AUTO) 2.1 (0.2-0.8); MONOCYTES % 7.1 % (4.4-11.3); NEUTROPHILS # (AUTO) 23.5 (2.1-6.9); PLATELET COUNT 459 x10e3/uL (140-360); RED BLOOD COUNT 3.05 x10e6/uL (4.3-5.7); RED CELL DISTRIBUTION WIDTH 15.5 % (11.7-14.4)
[2019-08-22 05:33] LABS: ANION GAP 14.5 mmol/L (8-16); BLOOD UREA NITROGEN 48 mg/dL (7-26); BUN/CREATININE RATIO 42 (6-25); CALCIUM 8.5 mg/dL (8.4-10.2); CARBON DIOXIDE 23 mmol/L (22-29); CHLORIDE 114 mmol/L (98-107); CREATININE, SERUM 1.13 mg/dL (0.72-1.25); EST GLOMERULAR FILTRATION RATE > 60 ML/MIN (60-); GLUCOSE 145 mg/dL (74-118); POTASSIUM 3.5 mmol/L (3.5-5.1); SODIUM 148 mmol/L (136-145)
[2019-08-22] MEDS: CLINDAMYCIN PHOS 900MG/ 50ML 50 ML IV SCH ×3 (05:35→17:50)
[2019-08-22] MEDS: MEROPENEM 500MG/ NS 50ML 50 ML IV SCH ×3 (05:35→21:33)
[2019-08-22 07:04] LABS: PLATELET ESTIMATE SLIGHTLY INCREASED; PLATELET MORPHOLOGY COMMENT FEW LARGE
[2019-08-22 07:05] LABS: RBC MORPHOLOGY COMMENT NORMAL
[2019-08-22] MEDS: INSULIN LISPRO 100 UNIT/1 ML 3ML VIAL SQ SCH ×4 (07:30→20:39)
[2019-08-22] MEDS: CITRIC ACID/SODIUM CITRATE 30 ML UDC PO SCH ×3 (07:37→20:14)
[2019-08-22] MEDS: ASPIRIN 81 MG CHEW TAB PO SCH (07:37)
[2019-08-22] MEDS: SENNOSIDES 8.6 MG TAB PO SCH ×2 (07:37→16:09)
[2019-08-22] MEDS: ALBUTEROL/IPRATROPIUM 3 ML NEB NEB SCH ×4 (07:40→19:42)
[2019-08-22] MEDS: FUROSEMIDE INJ 10 MG/ML 4 ML VIAL IV SCH ×2 (08:06→20:38)
[2019-08-22] MEDS: BALSAM PERU/CASTOR OIL 60 GM OINT...G. TP SCH (08:06)
[2019-08-22] MEDS ORDERED: SODIUM CHLORIDE 0.9% 250ML 250 ML ONE (09:57)
--- NOTE | 2019-08-22 10:00 | NUR ---
NOTIFIED TEODORA TERRY OF [facility]. NO NEW ORDERS RECEIVED
[2019-08-22] MEDS: VANCOMYCIN 1GM/NS 250 ML 250 ML IV SCH (10:02)
--- NOTE | 2019-08-22 10:37 | NUR ---
PT AND THIS RN ATTEMPTED MULTIPLE TIMES FOR PATIENT TO WORK WITH PHYSICAL THERAPY PT CONTINUED TO REFUSE, STATED HE WANTED TO BE LEFT ALONE.
--- NOTE | 2019-08-22 13:37 | Progress Note ---
DATE: 08/22/2019 SUBJECTIVE: Extubated. Remains weak. Chest x-ray still showing some fluid overload. He is net negative of about 400 mL. OBJECTIVE: VITAL SIGNS: Temperature is 98, pulse 76, blood pressure 153/51. CHEST: Minimally diminished breath sounds at the bases. ABDOMEN: Benign. EXTREMITIES: Trace sacral edema. Left leg bandage is noted. LABORATORY DATA: Hemoglobin is up to 9.2. Serum CO2 is 23, potassium is 3.5, sodium is 148. Last uric acid was 12.7. ASSESSMENT: 1. Acute chronic kidney disease. 2. Diabetic nephropathy. 3. Fluid overload. 4. Metabolic acidosis, which is compensated. 5. Necrotizing cellulitis in the leg. 6. Hyperuricemia. PLAN: Recheck uric acid, a.m. chemistries. Keep fluid restricted. Continue IV Lasix and chlorthalidone. If uric acid is still high, add allopurinol. MD RITA Castillo/JUANCHO /[id number]
[2019-08-22] MEDS ORDERED: SODIUM HYPOCHLORITE 0.25% 480 ML SOLN IR ONE (16:00)
[2019-08-22] MEDS: MORPHINE SULFATE INJ 4 MG/ML INJ 1ML IV PRN ×2 (16:10→20:56)
--- NOTE | 2019-08-22 20:04 | Progress Note ---
DATE: 08/22/2019 SUBJECTIVE: Mr. Valerio remains in intensive care unit, but again he looks fairly better today, slowly improving. PHYSICAL EXAMINATION: GENERAL: He is currently alert. VITAL STABLE: Afebrile. at the bedside. HEENT: He is not icteric. NECK: Supple. CHEST: Clear. Obese. ABDOMEN: Soft. Bowel sounds present. EXTREMITIES: Thigh seems to be better. IMPRESSION: 1. Necrotizing soft tissue infection, status post debridement x2. 2. Acute kidney injury, chronic kidney disease for a morbidly obese patient. 3. Diabetes mellitus. 4. Neuropathy. 5. Fluid overload. 6. Sepsis, resolved. 7. Necrotizing soft tissue infection. 8. Debility. The plan is to continue the current choice of IV antibiotic. 9. Anemia, seems to be stable. 10. Vancomycin trough 16.3. Continue to adjust and re-dose. 11. Continue with all antibiotics as ordered plus wound care, debridement for surgery. We will follow. MD KENNEY Che/MODL /[id number]
[2019-08-22] MEDS: INSULIN GLARGINE 100 UNITS/ML VIAL SQ SCH (20:40)
[2019-08-23] VITALS (25 sets, daily range): BP systolic 119–165; BP diastolic 35–116
[2019-08-23] MEDS: CLINDAMYCIN PHOS 900MG/ 50ML 50 ML IV SCH ×5 (00:02→23:51)
[2019-08-23] MEDS: MORPHINE SULFATE INJ 4 MG/ML INJ 1ML IV PRN ×3 (01:19→22:12)
[2019-08-23] MEDS: ALBUTEROL/IPRATROPIUM 3 ML NEB NEB SCH ×4 (01:30→19:35)
[2019-08-23 05:12] LABS: BASOPHILS # (AUTO) 0.1 (0.0-0.1); BASOPHILS % 0.3 % (0.0-1.0); EOSINOPHILS # (AUTO) 0.6 (0.0-0.4); EOSINOPHILS % 2.4 % (0.0-6.0); HEMATOCRIT 26.4 % (38.2-49.6); HEMOGLOBIN 8.6 g/dL (14.0-18.0); LYMPHOCYTES # (AUTO) 1.7 (1.0-3.2); MEAN CORPUSCULAR HEMOGLOBIN 30.6 pg (28-32); MEAN CORPUSCULAR HGB CONC 32.6 g/dL (31-35); MONOCYTES # (AUTO) 1.7 (0.2-0.8); MONOCYTES % 7.1 % (4.4-11.3); NEUTROPHILS # (AUTO) 18.9 (2.1-6.9); NEUTROPHILS % 79.6 % (38.7-80.0); PLATELET COUNT 512 x10e3/uL (140-360); RED BLOOD COUNT 2.81 x10e6/uL (4.3-5.7); RED CELL DISTRIBUTION WIDTH 15.6 % (11.7-14.4)
[2019-08-23 05:30] LABS: ANION GAP 11.4 mmol/L (8-16); BLOOD UREA NITROGEN 43 mg/dL (7-26); BUN/CREATININE RATIO 42 (6-25); CALCIUM 8.3 mg/dL (8.4-10.2); CARBON DIOXIDE 28 mmol/L (22-29); CHLORIDE 116 mmol/L (98-107); CREATININE, SERUM 1.02 mg/dL (0.72-1.25); EST GLOMERULAR FILTRATION RATE > 60 ML/MIN (60-); GLUCOSE 137 mg/dL (74-118); MAGNESIUM 1.5 MG/DL (1.3-2.1); PHOSPHORUS 3.2 MG/DL (2.3-4.7); POTASSIUM 3.4 mmol/L (3.5-5.1); SODIUM 152 mmol/L (136-145)
[2019-08-23] MEDS: MEROPENEM 500MG/ NS 50ML 50 ML IV SCH ×3 (05:51→21:52)
[2019-08-23 07:05] LABS: EOSINOPHILS % (MANUAL) 1 % (0-7); LYMPHOCYTES % (MANUAL) 7 % (19-48); MONOCYTES % (MANUAL) 4 % (3.4-9.0); MYELOCYTES % (MANUAL) 1 % (0-0); NEUTROPHILS % (MANUAL) 87 % (40-74); PLATELET ESTIMATE MODERATELY INCREASED; PLATELET MORPHOLOGY COMMENT FEW LARGE; RBC MORPHOLOGY COMMENT NORMAL
[2019-08-23] MEDS: INSULIN LISPRO 100 UNIT/1 ML 3ML VIAL SQ SCH ×4 (07:30→20:46)
[2019-08-23] MEDS: ASPIRIN 81 MG CHEW TAB PO SCH (09:00)
[2019-08-23] MEDS: CHLORTHALIDONE 25 MG TAB PO SCH (09:00)
[2019-08-23] MEDS: SENNOSIDES 8.6 MG TAB PO SCH ×2 (09:00→16:27)
[2019-08-23] MEDS: FUROSEMIDE INJ 10 MG/ML 4 ML VIAL IV SCH (09:30)
[2019-08-23] MEDS: BALSAM PERU/CASTOR OIL 60 GM OINT...G. TP SCH (09:30)
[2019-08-23] MEDS: VANCOMYCIN 1GM/NS 250 ML 250 ML IV SCH (10:00)
--- NOTE | 2019-08-23 10:04 | Diagnostic Imaging Report ---
Exam: Modified barium swallow Clinical history: Dysphasia Total images 20 Total fluoroscopy time 3.7 minute Findings: Modified barium swallow was performed by the speech pathologist. Radiologist was not present during the exam. Please refer to the speech pathology report for further details. Signed by: Dr. Raj Shearer MD on 08/23/2019 10:01 AM
--- NOTE | 2019-08-23 12:52 | Progress Note ---
DATE: 08/23/2019 SUBJECTIVE: Remains extubated, net negative, on IV Lasix. OBJECTIVE: VITAL SIGNS: Temperature is 98, pulse 85, and blood pressure 152/58. CHEST: Clear with diminished breath sounds at bases. EXTREMITIES: Trace edema. NEURO: Appears frail and weak. GENERAL: No distress. LABORATORY DATA: Sodium 152, K 3.4, chloride 116, bicarb 28, creatinine 1.02, BUN 43. Last chest x-ray was still showing some fluid overload. ASSESSMENT: 1. Chronic kidney disease, stage 3. 2. Diabetic nephropathy and hypertensive nephrosclerosis. 3. Mild hyponatremia, secondary to diuresis. PLAN: Start cutting back the Lasix. Leave on the chlorthalidone. Since the acidosis is improved, we will start cutting back on the Bicitra. Recheck chemistries in the morning. We will follow along. MD JOSSELINE CastilloK/JUANCHO /[id number]
[2019-08-23] MEDS ORDERED: POTASSIUM CHLORIDE 20MEQ/100ML 100 ML IV ONE (13:15)
[2019-08-23] MEDS ORDERED: DEXTROSE 5% 1,000 ML IV SCH (14:30)
--- NOTE | 2019-08-23 19:00 | NUR ---
Report received. Assumed care. Assessment done. See interventions.
[2019-08-23] MEDS ORDERED: FUROSEMIDE INJ 10 MG/ML 2 ML VIAL IV SCH (21:00)
[2019-08-23] MEDS: INSULIN GLARGINE 100 UNITS/ML VIAL SQ SCH (21:27)
[2019-08-24] VITALS (24 sets, daily range): BP systolic 104–165; BP diastolic 29–94
[2019-08-24] MEDS: ALBUTEROL/IPRATROPIUM 3 ML NEB NEB SCH ×4 (02:05→19:45)
[2019-08-24 05:20] LABS: ANION GAP 10.2 mmol/L (8-16); BLOOD UREA NITROGEN 39 mg/dL (7-26); BUN/CREATININE RATIO 37 (6-25); CALCIUM 8.3 mg/dL (8.4-10.2); CARBON DIOXIDE 29 mmol/L (22-29); CHLORIDE 117 mmol/L (98-107); CREATININE, SERUM 1.06 mg/dL (0.72-1.25); EST GLOMERULAR FILTRATION RATE > 60 ML/MIN (60-); GLUCOSE 143 mg/dL (74-118); MAGNESIUM 1.4 MG/DL (1.3-2.1); POTASSIUM 3.2 mmol/L (3.5-5.1); SODIUM 153 mmol/L (136-145)
[2019-08-24] MEDS: CLINDAMYCIN PHOS 900MG/ 50ML 50 ML IV SCH ×2 (05:27→12:11)
[2019-08-24] MEDS: MEROPENEM 500MG/ NS 50ML 50 ML IV SCH ×3 (05:51→22:27)
[2019-08-24] MEDS: INSULIN LISPRO 100 UNIT/1 ML 3ML VIAL SQ SCH ×4 (07:30→21:00)
[2019-08-24 07:47] LABS: BASOPHILS # (AUTO) 0.1 (0.0-0.1); BASOPHILS % 0.3 % (0.0-1.0); EOSINOPHILS # (AUTO) 0.5 (0.0-0.4); HEMATOCRIT 27.2 % (38.2-49.6); HEMOGLOBIN 8.6 g/dL (14.0-18.0); LYMPHOCYTES # (AUTO) 1.8 (1.0-3.2); LYMPHOCYTES % 7.5 % (18.0-39.1); MEAN CORPUSCULAR HEMOGLOBIN 30.5 pg (28-32); MEAN CORPUSCULAR HGB CONC 31.6 g/dL (31-35); MEAN CORPUSCULAR VOLUME 96.5 fL (81-99); MONOCYTES # (AUTO) 1.8 (0.2-0.8); MONOCYTES % 7.6 % (4.4-11.3); NEUTROPHILS # (AUTO) 18.9 (2.1-6.9); NEUTROPHILS % 80.5 % (38.7-80.0); PLATELET COUNT 498 x10e3/uL (140-360); RED BLOOD COUNT 2.82 x10e6/uL (4.3-5.7); RED CELL DISTRIBUTION WIDTH 15.9 % (11.7-14.4)
[2019-08-24 08:28] LABS: ANION GAP 10.2 mmol/L (8-16); BLOOD UREA NITROGEN 38 mg/dL (7-26); BUN/CREATININE RATIO 37 (6-25); CALCIUM 8.7 mg/dL (8.4-10.2); CARBON DIOXIDE 29 mmol/L (22-29); CHLORIDE 115 mmol/L (98-107); CREATININE, SERUM 1.03 mg/dL (0.72-1.25); EST GLOMERULAR FILTRATION RATE > 60 ML/MIN (60-); GLUCOSE 148 mg/dL (74-118); POTASSIUM 3.2 mmol/L (3.5-5.1); SODIUM 151 mmol/L (136-145)
[2019-08-24] MEDS ORDERED: MAGNESIUM SULFATE 2GM/50ML 50 ML IV ONE (08:45)
[2019-08-24] MEDS ORDERED: POTASSIUM CHLORIDE 20MEQ/100ML 200 ML IV ONE (08:45)
[2019-08-24] MEDS: ASPIRIN 81 MG CHEW TAB PO SCH (09:00)
[2019-08-24] MEDS: SENNOSIDES 8.6 MG TAB PO SCH ×2 (09:00→17:00)
[2019-08-24] MEDS: CHLORTHALIDONE 25 MG TAB PO SCH (09:00)
[2019-08-24] MEDS: BALSAM PERU/CASTOR OIL 60 GM OINT...G. TP SCH (09:17)
[2019-08-24] MEDS ORDERED: SODIUM CHLORIDE 0.9% 250ML 250 ML ONE (09:26)
[2019-08-24] MEDS: VANCOMYCIN 1GM/NS 250 ML 250 ML IV SCH (10:00)
[2019-08-24] MEDS: DEXTROSE 5% 1,000 ML IV SCH ×2 (11:28→22:56)
--- NOTE | 2019-08-24 12:36 | Progress Note ---
DATE: 08/24/2019 SUBJECTIVE: Remains extubated. Swelling is improved. Sodium staying high, but somewhat better than yesterday. Denied any dyspnea. OBJECTIVE: VITAL SIGNS: Temperature 97.7, pulse 78, and blood pressure 148/39. CHEST: Clear. EXTREMITIES: Trace edema. SKIN: Wrinkled. EYES: Bandaged on the left eye. CARDIAC: Normal heart tone that sounds regular at this time. LABORATORY DATA: White count 31598, hemoglobin 8.6, and platelets 498. Sodium 151, potassium 3.2, creatinine 1.03, and BUN 38. ASSESSMENT: 1. Acute kidney injury, improved. CKD stage II to III from diabetic, hypertensive, and end-organ damage. 2. Fluid overload better. 3. Hypernatremia, settling down. 4. Concern for feeding as noted and discussed with Dr. Loera. At this point, NG tube was not desirable due to his tendency to pull the tubes in which case we will make the decision to do a trial of total parenteral nutrition. PLAN TPN is ordered. Please see my details serial chemistries. diuretic scaled back for now leave on d5w Addendum subsequently patient agreeable to feeding tube, generally speaking this is safer , tpn cancelled, start glucerna as suggested by nutrionist MD JOSSELINE CastilloK/JUANCHO /[id number]
--- NOTE | 2019-08-24 13:04 | NUR ---
Nutrition Intervention Note RD Recommendation(s) for Physician: -No barriers to utilizing GI tract, recommend DHT placement and begin TF of Glucerna 1.2 with goal rate of 65 ml/hr (to provide 1872 kcal and 94 gm protein). Water flushes per MD. -Advancement of diet per APPLICATION SUPPORT LEAD/MD. Recommend 2 gm Na, 2000 ADA. -Recommend Homero 1 packet BID to promote wound healing. -Monitor low lytes and replace as needed. Plan of Care: RD following, monitoring for tolerance and adequacy. EN recs. Nutrition reason for involvement: Follow up RD Assessment 08/24: Pt seen for f/u, remains NPO x day 6. Pt discussed during am rounds, plans to start TPN this evening- no barriers to utilizing GI tract. Pt pulled NGT previously, per RN doesn't want another NGT placed. Discussed EN with pt and , they are amenable to proceeding with EN and understand tube would have to be replaced. RD rec's discussed in rounds and with RN. APPLICATION SUPPORT LEAD following for dysphagia. MD paged, awaiting return call. 08/19: Follow up: Pt has been intubated and is sedated on fentanyl, no propofol. Per nurse pt is on 12 mcg of levo currently but is trying to decrease if medically feasible. Provided EN recommendations above if MD would like to start tube feeds. Discussed pt in rounds: feeding the pt is not the plan currently, they want to try to extubate the pt tmrw. Per progress note- chest xray is showing some fluid overload and there is no need for emergent dialysis. Speech was consulted, MBS is pending after extubation. Pt is meeting 88% of his recommended energy needs and 111% of his recommended protein needs with TF recommendations above. Will continue to monitor. 08/17: Follow up: Discussed pt in rounds. Nurse reports the pt is not improving and per progress note pt appears sicker. Pt is status post debridement of the left thigh, was on levophed but per nurse is off now. Pt was observed in the ICU resting with nasal cannula in place, daughter at bedside. Per nurse the pt developed chewing/swallowing issues this morning and has not eaten much lately. Pt has fluid overload, was started on lasix and IVF has been d/c. Per chest x-ray yesterday, the pt had come congestion. Per MD note, pt does not need dialysis yet, but needs to be monitored. Will continue to monitor. (08/13/2019) Chart reviewed. Labs and meds reviewed. Initial encounter with patient. Pt with C/O biting/chewing difficulty related to poor fitting dentures as evidenced by pt having difficulty eating regular textures. Offered pt a texture modification and he refused, but his daughter requested a texture modification. Pt denies nausea, vomiting or diarrhea. Pt states that he's not a big eater. No significant wt changes. Pt can feed himself, but his daughter helps to feed the pt. Principal Problems/Diagnoses: CAP PMH: diabetes, morbid obesity, progressive dyspnea GI: Abd: soft, non tender, large, LBM: 08/24 Skin: left thigh wound IVF: D5W at 100 ml/hr Labs: 08/24: Na 151, K 3.2, Cl 115, CO2 29, BUN 38, Cr 1.03, Gluc 148 08/19: POC GM 207 08/17: K 3.1, Cl 108, CO2 19, BUN 61, Creat 1.56, Gluc 145, Ca 7.5 Meds: abx, insulin, zofran, senokot, lispro Ht: 72 in Wt: 366 lbs BMI: 50.6 kg/m^2 IBW: 178 lbs Malnutrition Evaluation (08/17) The patient does not meet criteria for a specified degree of malnutrition at this time. Will re-evaluate at follow-up as appropriate. Supporting Evidence: Fluid accumulation: trace edema Nutrition Prescription (Diet Order): NPO Estimated Nutritional Needs: Calories: 2731-8251 (22-25 kcal/day) Weight used : IBW: 80.9 kg -intubated Protein : 121-161 gram/protein/day (1.2-1.5) Weight used: IBW: 80.9 kg-intubated Diet Adequacy: Not meeting calorie needs, Not meeting protein needs Diet Education Needs Assessment: Diet education indicated, but patient not appropriate for education at this time. Nutrition Care Level: High- NPO x 6 days Diet tolerance: Pending, remains NPO Nutrition Diagnosis: Inadequate energy intake related to medical condition as evidenced by nurses reports of poor intake and chewing/swallowing difficulty. Goal: Patient will meet 75-100% of estimated needs by follow up Progress: not progressing Interventions: Carb, mineral (sodium), altered texture-modified diet, Prescription medications, Collaboration with other providers, modify rate of enteral nutrition, modify route of enteral nutrition, modify composition of enteral nutrition Monitoring/Evaluation: -Total energy intake, Total protein intake, formula/solution, Prescription medication, Modified diet, Signed: MANJIT Hebert RD, [facility] Addendum: 08/24/19 at 1448 by Alice Kaba DIET Spoke with Dr. Karo MD in agreement with TF rec's and MD to order NGT placement. No initiation of TPN at this time. Plan discussed with RN on unit and TF rec's given. Orders pending. MANJIT Hebert RD, [facility]
[2019-08-24] MEDS: MORPHINE SULFATE INJ 4 MG/ML INJ 1ML IV PRN ×2 (18:10→21:10)
[2019-08-24] MEDS ORDERED: SODIUM HYPOCHLORITE 0.25% 480 ML SOLN IR ONE (18:15)
--- NOTE | 2019-08-24 19:49 | Diagnostic Imaging Report ---
Exam: Abdominal film Clinical History: NG tube placement Comparison: None. DISCUSSION: See impression IMPRESSION: Severely limited radiograph. No visualized enteric tube. Signed by: Dr. Oscar Lopez M.D. on 08/24/2019 7:45 PM
[2019-08-24] MEDS ORDERED: CENTRAL TPN FORMULA 1 BAG IV SCH (20:00)
[2019-08-24] MEDS: INSULIN GLARGINE 100 UNITS/ML VIAL SQ SCH (21:17)
--- NOTE | 2019-08-24 22:20 | Diagnostic Imaging Report ---
EXAM: ABDOMEN-1VIEW (KUB), DATE: 08/24/2019 8:37 PM INDICATION: NG tube placement. COMPARISON: 08/24/2019 1901 hours. FINDINGS: Limited exam as the upper most abdomen not completely included. LINES/TUBES: Tubing partially visualized projected on the right upper quadrant may be overlying the patient and not compatible with a nasogastric tube normal position. BOWEL PATTERN: Mild diffuse colonic distention. Residual contrast in the cecum and distal small bowel loops. SOFT TISSUES: No abnormal calcifications. No mass effect. LUNG BASES: Not included BONES: No acute findings. IMPRESSION: Limited exam. A normally positioned nasogastric tube is not visualized. Recommend further evaluating with a chest radiograph, as well as and KUB concentrating on the upper abdomen. Signed by: Dr. Chan Ricci M.D. on 08/24/2019 10:17 PM
[2019-08-24] MEDS: SODIUM HYPOCHLORITE 0.25% 480 ML SOLN IR SCH (22:28)
[2019-08-24] MEDS ORDERED: ZIPRASIDONE 20 MG VIAL IM PRN (23:00)
[2019-08-25] VITALS (24 sets, daily range): BP systolic 75–174; BP diastolic 34–123
--- NOTE | 2019-08-25 00:40 | Diagnostic Imaging Report ---
EXAM: CT Abdomen WITHOUT contrast INDICATION: Pain. Pneumonia. Further evaluate position of KUB not well visualized on recent KUBs. COMPARISON: None. TECHNIQUE: Abdomen and pelvis were scanned utilizing a multidetector helical scanner from the lung base to the pubic symphysis without administration of IV contrast. Absence of intravenous contrast decreases sensitivity for detection of focal lesions and vascular pathology. Coronal and sagittal reformations were obtained. Routine protocol was performed. IV CONTRAST: None. ORAL CONTRAST: Positive oral contrast. RADIATION DOSE: Total DLP: 902.83 mGy*cm Estimated effective dose: (DLP x 0.015 x size factor) mSv COMPLICATIONS: None FINDINGS: LINES and TUBES: NG/orogastric tube with distal tip within the gastric body, adequate position. LOWER THORAX: Airspace disease with bronchograms in the posterior lung bases bilaterally, left greater than right may represent atelectasis versus pneumonia proper clinical setting. Multivessel coronary artery calcifications. Calcifications of the mitral and aortic valves. The heart is mildly enlarged. HEPATOBILIARY: No focal hepatic lesions. No biliary ductal dilation. GALLBLADDER: No radio-opaque stones or sludge. No wall thickening. The gallbladder is mildly hydropic measuring 5.5 cm in transverse dimension. SPLEEN: No splenomegaly. PANCREAS: No focal masses or ductal dilatation. ADRENALS: No adrenal nodules KIDNEYS/URETERS: No hydronephrosis. 2.9 cm cyst exophytic of the lateral interpolar region of the right kidney possibly hyperdense cyst. Just superior to it, there is a 2.9 cm simple cyst in the right kidney. 2.0 cm cyst exophytic of the posterior lower pole of the left kidney. Vascular calcifications. No stones. GI TRACT: No abnormal distention, wall thickening, or evidence of bowel obstruction. There are diverticula within the colon without evidence of diverticulitis. PELVIC ORGANS/BLADDER: Unremarkable. LYMPH NODES: No lymphadenopathy. VESSELS: Unremarkable. PERITONEUM / RETROPERITONEUM: No free air or fluid. BONES: There are degenerative changes in the lumbar spine. Remote healed left sided rib fractures SOFT TISSUES: Unremarkable. IMPRESSION: 1. NG/orogastric tube with distal tip within the gastric body, adequate position in the gastric antrum. Retrospectively, the tube projected on the right upper quadrant in a neutral position, however, due to morphology of the stomach. 2. Posterior bibasilar atelectasis versus consolidation. 3. Mild gallbladder hydrops. Signed by: Dr. Chan Ricci M.D. on 08/25/2019 12:37 AM
[2019-08-25] MEDS: ALBUTEROL/IPRATROPIUM 3 ML NEB NEB SCH ×4 (02:30→19:30)
[2019-08-25] MEDS: MEROPENEM 500MG/ NS 50ML 50 ML IV SCH ×3 (05:05→22:12)
[2019-08-25] MEDS: MORPHINE SULFATE INJ 4 MG/ML INJ 1ML IV PRN (05:06)
[2019-08-25 05:30] LABS: BASOPHILS # (AUTO) 0.1 (0.0-0.1); BASOPHILS % 0.3 % (0.0-1.0); EOSINOPHILS # (AUTO) 0.5 (0.0-0.4); EOSINOPHILS % 2.5 % (0.0-6.0); HEMATOCRIT 27.7 % (38.2-49.6); HEMOGLOBIN 8.6 g/dL (14.0-18.0); LYMPHOCYTES # (AUTO) 1.6 (1.0-3.2); MEAN CORPUSCULAR HEMOGLOBIN 29.8 pg (28-32); MEAN CORPUSCULAR VOLUME 95.8 fL (81-99); MONOCYTES # (AUTO) 1.7 (0.2-0.8); MONOCYTES % 8.7 % (4.4-11.3); NEUTROPHILS # (AUTO) 15.4 (2.1-6.9); NEUTROPHILS % 79.1 % (38.7-80.0); PLATELET COUNT 423 x10e3/uL (140-360); RED BLOOD COUNT 2.89 x10e6/uL (4.3-5.7); RED CELL DISTRIBUTION WIDTH 15.8 % (11.7-14.4)
[2019-08-25 06:12] LABS: FERRITIN 285.63 ng/mL (21.81-274.66)
[2019-08-25] MEDS: INSULIN LISPRO 100 UNIT/1 ML 3ML VIAL SQ SCH ×4 (07:30→21:00)
[2019-08-25] MEDS: SODIUM HYPOCHLORITE 0.25% 480 ML SOLN IR SCH (08:39)
[2019-08-25] MEDS: ASPIRIN 81 MG CHEW TAB PO SCH (08:56)
[2019-08-25] MEDS: BALSAM PERU/CASTOR OIL 60 GM OINT...G. TP SCH (08:56)
[2019-08-25] MEDS: CHLORTHALIDONE 25 MG TAB PO SCH (08:56)
[2019-08-25] MEDS: SENNOSIDES 8.6 MG TAB PO SCH ×2 (08:56→16:49)
[2019-08-25] MEDS ORDERED: POTASSIUM CHLORIDE 20MEQ/100ML 200 ML IV ONE (09:15)
[2019-08-25] MEDS: DEXTROSE 5% 1,000 ML IV SCH ×3 (09:15→23:05)
[2019-08-25 09:40] LABS: ANION GAP 12.1 mmol/L (8-16); BLOOD UREA NITROGEN 31 mg/dL (7-26); BUN/CREATININE RATIO 29 (6-25); CALCIUM 8.3 mg/dL (8.4-10.2); CARBON DIOXIDE 25 mmol/L (22-29); CHLORIDE 116 mmol/L (98-107); CREATININE, SERUM 1.06 mg/dL (0.72-1.25); EST GLOMERULAR FILTRATION RATE > 60 ML/MIN (60-); GLUCOSE 129 mg/dL (74-118); POTASSIUM 3.1 mmol/L (3.5-5.1); SODIUM 150 mmol/L (136-145)
[2019-08-25] MEDS: VANCOMYCIN 1GM/NS 250 ML 250 ML IV SCH (10:00)
[2019-08-25] MEDS ORDERED: SODIUM CHLORIDE 0.9% 100 ML ONE (10:27)
--- NOTE | 2019-08-25 12:13 | Progress Note ---
DATE: 08/25/2019 SUBJECTIVE: He is more awake. Speech therapist trying exercises, he pulled out his NG tube. Sodium is slightly high. Potassium was low, that has already been replaced. Creatinine stable at 1.06. Iron stores were low. Ferritin was 285. Hemoglobin is 8.6. OBJECTIVE: VITAL SIGNS: Temperature 97.9, pulse 89, and blood pressure 114/68. NEURO: Feels weak. CHEST: Clear. EXTREMITIES: No edema at this time. SKIN: Wrinkled. LABORATORY DATA: Sodium 150, K 3.1, serum CO2 of 25, creatinine 1.06, BUN 31. Hemoglobin 8.6, white count 19,400, and platelets 423. ASSESSMENT: 1. Acute kidney injury, better. 2. 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 3. Low iron stores relatively with anemia, which is multifactorial. PLAN: 1. We will look into iron IV if okay with Infectious Disease. 2. One dose of Epogen . 3. D5 water. 4. Hold the Lasix for now. Thank you for allowing us to participate in Mr. Valerio's care. We will follow along with you. MD RITA Castillo/JUANCHO /[id number]
--- NOTE | 2019-08-25 12:57 | NUR ---
ORDER RECEIVED FOR LTACH. MET W THE PT AND FAMILY AT THE BEDSIDE; SISTER AND BROTHER. PT'S SISTER STATES THE WAS OUT AND CALLED HER ON HER CELL PHONE. STATES SHE WILL NOT RETURN TO THE HOSPITAL UNTIL LATER TODAY. AGREED TO MEET W THE TOMORROW TO DISCUSS LTACH.
--- NOTE | 2019-08-25 13:37 | NUR ---
Nutrition Intervention Note RD Recommendation(s) for Physician: -No barriers to utilizing GI tract, recommend DHT placement and begin TF of Glucerna 1.2 with goal rate of 65 ml/hr (to provide 1872 kcal and 94 gm protein). Water flushes per MD. -Advancement of diet per CHLORINE PLANT OPERATOR/MD. Recommend 2 gm Na, 2000 ADA. -Recommend Homero 1 packet BID to promote wound healing. -Monitor low lytes and replace as needed. Plan of Care: RD following, monitoring for tolerance and adequacy. EN recs. Nutrition reason for involvement: Follow up RD Assessment 08/25: Pt seen for f/u, TF ordered however start pending 12/18 pt pulled NGT overnight. EN remains most appropriate for pt, discussed with team during am rounds. No discussion of PEG/Gtube placement as of yet. No TPN ordered currently, pt on D5W IVF and lytes replaced. Current rec's remain appropriate. Plan for discharge to LTAC ongoing. Will monitor and continue to follow. 08/24: Pt seen for f/u, remains NPO x day 6. Pt discussed during am rounds, plans to start TPN this evening- no barriers to utilizing GI tract. Pt pulled NGT previously, per RN doesn't want another NGT placed. Discussed EN with pt and , they are amenable to proceeding with EN and understand tube would have to be replaced. RD rec's discussed in rounds and with RN. CHLORINE PLANT OPERATOR following for dysphagia. MD paged, awaiting return call. 08/19: Follow up: Pt has been intubated and is sedated on fentanyl, no propofol. Per nurse pt is on 12 mcg of levo currently but is trying to decrease if medically feasible. Provided EN recommendations above if MD would like to start tube feeds. Discussed pt in rounds: feeding the pt is not the plan currently, they want to try to extubate the pt tmrw. Per progress note- chest xray is showing some fluid overload and there is no need for emergent dialysis. Speech was consulted, MBS is pending after extubation. Pt is meeting 88% of his recommended energy needs and 111% of his recommended protein needs with TF recommendations above. Will continue to monitor. 08/17: Follow up: Discussed pt in rounds. Nurse reports the pt is not improving and per progress note pt appears sicker. Pt is status post debridement of the left thigh, was on levophed but per nurse is off now. Pt was observed in the ICU resting with nasal cannula in place, daughter at bedside. Per nurse the pt developed chewing/swallowing issues this morning and has not eaten much lately. Pt has fluid overload, was started on lasix and IVF has been d/c. Per chest x-ray yesterday, the pt had come congestion. Per MD note, pt does not need dialysis yet, but needs to be monitored. Will continue to monitor. (08/13/2019) Chart reviewed. Labs and meds reviewed. Initial encounter with patient. Pt with C/O biting/chewing difficulty related to poor fitting dentures as evidenced by pt having difficulty eating regular textures. Offered pt a texture modification and he refused, but his daughter requested a texture modification. Pt denies nausea, vomiting or diarrhea. Pt states that he's not a big eater. No significant wt changes. Pt can feed himself, but his daughter helps to feed the pt. Principal Problems/Diagnoses: CAP PMH: diabetes, morbid obesity, progressive dyspnea GI: Abd: soft, non tender, large, LBM: 08/24 x 3 Skin: left thigh wound IVF: D5W at 100 ml/hr NS as carrier Labs: 08/25: Na 150, K 3.1, Cl 116, CO2 25, BUN 31, Cr 1.06, Gluc 129, POC Gluc 111-137 08/24: Na 151, K 3.2, Cl 115, CO2 29, BUN 38, Cr 1.03, Gluc 148 08/19: POC GM 207 08/17: K 3.1, Cl 108, CO2 19, BUN 61, Creat 1.56, Gluc 145, Ca 7.5 Meds: abx, insulin, zofran, senokot, lispro, KCl IVPB Ht: 72 in Wt: 366 lbs BMI: 50.6 kg/m^2 IBW: 178 lbs Malnutrition Evaluation (08/17) The patient does not meet criteria for a specified degree of malnutrition at this time. Will re-evaluate at follow-up as appropriate. Supporting Evidence: Fluid accumulation: trace edema Nutrition Prescription (Diet Order): Glucerna 1.2 at 20 ml/hr with goal rate of 65 ml/hr pending start Estimated Nutritional Needs: Calories: 3579-9543 (22-25 kcal/day) Weight used : IBW: 80.9 kg -intubated Protein : 121-161 gram/protein/day (1.2-1.5) Weight used: IBW: 80.9 kg-intubated Diet Adequacy: Not meeting calorie needs, Not meeting protein needs Diet Education Needs Assessment: Diet education indicated, but patient not appropriate for education at this time. Nutrition Care Level: High- remains NPO Diet tolerance: Pending, remains NPO Nutrition Diagnosis: Inadequate energy intake related to medical condition as evidenced by nurses reports of poor intake and chewing/swallowing difficulty. Goal: Patient will meet 75-100% of estimated needs by follow up Progress: not progressing Interventions: Carb, mineral (sodium), altered texture-modified diet, Prescription medications, Collaboration with other providers, modify rate of enteral nutrition, modify route of enteral nutrition, modify composition of enteral nutrition Monitoring/Evaluation: -Total energy intake, Total protein intake, formula/solution, Prescription medication, Modified diet, Signed: Alice Kaba RD, [place], [facility] Addendum: 08/24/19 at 1448 by Alice Kaba DIET Spoke with Dr. Karo MD in agreement with TF rec's and MD to order NGT placement. No initiation of TPN at this time. Plan discussed with RN on unit and TF rec's given. Orders pending.
[2019-08-25] MEDS: INSULIN GLARGINE 100 UNITS/ML VIAL SQ SCH (21:00)
[2019-08-25] MEDS: IRON SUCROSE 200 MG in SODIUM CHLORIDE 0.9% 100 ML 100 ML IV SCH (21:26)
[2019-08-26] VITALS (25 sets, daily range): BP systolic 105–176; BP diastolic 32–79
[2019-08-26] MEDS: MORPHINE SULFATE INJ 4 MG/ML INJ 1ML IV PRN ×2 (01:17→04:56)
[2019-08-26] MEDS: ALBUTEROL/IPRATROPIUM 3 ML NEB NEB SCH ×4 (01:35→19:35)
[2019-08-26 05:48] LABS: ANION GAP 11.2 mmol/L (8-16); BLOOD UREA NITROGEN 25 mg/dL (7-26); BUN/CREATININE RATIO 24 (6-25); CALCIUM 8.2 mg/dL (8.4-10.2); CARBON DIOXIDE 27 mmol/L (22-29); CHLORIDE 114 mmol/L (98-107); CREATININE, SERUM 1.03 mg/dL (0.72-1.25); EST GLOMERULAR FILTRATION RATE > 60 ML/MIN (60-); GLUCOSE 137 mg/dL (74-118); MAGNESIUM 1.4 MG/DL (1.3-2.1); PHOSPHORUS 2.9 MG/DL (2.3-4.7); POTASSIUM 3.2 mmol/L (3.5-5.1); SODIUM 149 mmol/L (136-145)
[2019-08-26] MEDS: MEROPENEM 500MG/ NS 50ML 50 ML IV SCH ×3 (06:29→21:52)
[2019-08-26] MEDS: INSULIN LISPRO 100 UNIT/1 ML 3ML VIAL SQ SCH ×4 (07:30→21:00)
[2019-08-26] MEDS: ASPIRIN 81 MG CHEW TAB PO SCH (08:48)
[2019-08-26] MEDS: SODIUM HYPOCHLORITE 0.25% 480 ML SOLN IR SCH (08:48)
[2019-08-26] MEDS: CHLORTHALIDONE 25 MG TAB PO SCH (08:49)
[2019-08-26] MEDS: SENNOSIDES 8.6 MG TAB PO SCH ×2 (08:49→17:00)
--- NOTE | 2019-08-26 08:49 | NUR ---
The night nurse reports completing wound care, just prior to shift change, with the dakins solution. Site is clean, dry, and intact. New orders for wound vac therapy, also. Addendum: 08/26/19 at 1923 by Chase Marshall RN Wound care was performed at 4pm. And wound care team did not follow up with patient today.
[2019-08-26] MEDS ORDERED: POTASSIUM CHLORIDE 20MEQ/100ML 200 ML IV ONE (10:00)
--- NOTE | 2019-08-26 10:34 | NUR ---
MET W THE PT AND AT THE BEDSIDE TO DISCUSS LTAC. STATES SHE WANTED TO KEEP HER NEAR SO HE COULD KEEP THE SAME DOCS. SIGNED CHOICE LETTER FOR [facility]. MOT WAS INITIATED. MARINA MEEK WAS NOTIFIED.
[2019-08-26] MEDS: VANCOMYCIN 1GM/NS 250 ML 250 ML IV SCH (11:27)
--- NOTE | 2019-08-26 12:00 | Progress Note ---
DATE: 08/26/2019 SUBJECTIVE: Remains a bit sleepy. Plan is to try and get a feeding tube in via fluoroscopic guidance. Sodium was slightly high, but trending downward on D5 water. PHYSICAL EXAMINATION: GENERAL: Lying in bed, no distress. VITAL SIGNS: Temperature 97.2, pulse 80, blood pressure 138/46. CHEST: Clear. EXTREMITIES: No edema. SKIN: Wrinkled. LABORATORY DATA: Sodium 149, potassium 3.2, creatinine 1.03, BUN 25, serum CO2 27. ASSESSMENT: 1. Acute kidney injury, improved. 2. 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 3. Diabetic nephropathy. 4. Minimal hypokalemia. 5. Hyponatremia. PLAN: 1. Replace potassium again. 2. Await feeding tube. 3. For the time being, leave on D5 water. Sodium is correcting slowly, for me this is reasonable. Follow along. MD RITA Catsillo/JUANCHO /[id number]
[2019-08-26] MEDS: BALSAM PERU/CASTOR OIL 60 GM OINT...G. TP SCH (12:11)
[2019-08-26] MEDS: DEXTROSE 5% 1,000 ML IV SCH ×2 (13:00→23:15)
--- NOTE | 2019-08-26 13:02 | NUR ---
Dr Willson with radiology refusing to place dobhoff without nurse's prior attempt. Dr Torres has spoken with Dr Willson. Dr Aleman now orders for nursing to attempt dobhoff placement x1 with 2 experienced nurses at bedside. A new order is not being placed in the computer.
--- NOTE | 2019-08-26 16:08 | NUR ---
Nutrition Intervention Note RD Recommendation(s) for Physician: -No barriers to utilizing GI tract, recommend DHT placement and begin TF when medically feasible: of Glucerna 1.2 at 10 ml/hr advance as tolerated with goal rate of 65 ml/hr (to provide 1872 kcal and 94 gm protein). -IVF management (Pt is still on D5W at 100 ml/hr-this provides an additional 120 gram dex and 408 kcal per EMR) -Additional flushed per MD. -Advancement of diet per BODYWORK THERAPIST/MD. Recommend 2 gm Na, 2000 ADA. -Recommend Homero 1 packet BID to promote wound healing. -Monitor low lytes and replace as needed. Plan of Care: RD following, monitoring for tolerance and adequacy. EN recs. Nutrition reason for involvement: Follow up RD Assessment 08/26: Discussed pt in rounds, per nurse plan is for DHT placement again today, no plans for TPN. Recommendations are as above. No pressors, propofol or ventilation at this present time. Per IM note- pt will remain on D5W ,replace potassium and await feeding tube, Na is trending down. If pt fails swallow eval from BODYWORK THERAPIST, recommend peg placement if appropriate. Will continue to monitor. 08/25: Pt seen for f/u, TF ordered however start pending / pt pulled NGT overnight. EN remains most appropriate for pt, discussed with team during am rounds. No discussion of PEG/Gtube placement as of yet. No TPN ordered currently, pt on D5W IVF and lytes replaced. Current rec's remain appropriate. Plan for discharge to LTAC ongoing. Will monitor and continue to follow. 08/24: Pt seen for f/u, remains NPO x day 6. Pt discussed during am rounds, plans to start TPN this evening- no barriers to utilizing GI tract. Pt pulled NGT previously, per RN doesn't want another NGT placed. Discussed EN with pt and , they are amenable to proceeding with EN and understand tube would have to be replaced. RD rec's discussed in rounds and with RN. BODYWORK THERAPIST following for dysphagia. paged, awaiting return call. 08/19: Follow up: Pt has been intubated and is sedated on fentanyl, no propofol. Per nurse pt is on 12 mcg of levo currently but is trying to decrease if medically feasible. Provided EN recommendations above if MD would like to start tube feeds. Discussed pt in rounds: feeding the pt is not the plan currently, they want to try to extubate the pt tmrw. Per progress note- chest xray is showing some fluid overload and there is no need for emergent dialysis. Speech was consulted, MBS is pending after extubation. Pt is meeting 88% of his recommended energy needs and 111% of his recommended protein needs with TF recommendations above. Will continue to monitor. 08/17: Follow up: Discussed pt in rounds. Nurse reports the pt is not improving and per progress note pt appears sicker. Pt is status post debridement of the left thigh, was on levophed but per nurse is off now. Pt was observed in the ICU resting with nasal cannula in place, daughter at bedside. Per nurse the pt developed chewing/swallowing issues this morning and has not eaten much lately. Pt has fluid overload, was started on lasix and IVF has been d/c. Per chest x-ray yesterday, the pt had come congestion. Per MD note, pt does not need dialysis yet, but needs to be monitored. Will continue to monitor. (08/13/2019) Chart reviewed. Labs and meds reviewed. Initial encounter with patient. Pt with C/O biting/chewing difficulty related to poor fitting dentures as evidenced by pt having difficulty eating regular textures. Offered pt a texture modification and he refused, but his daughter requested a texture modification. Pt denies nausea, vomiting or diarrhea. Pt states that he's not a big eater. No significant wt changes. Pt can feed himself, but his daughter helps to feed the pt. Principal Problems/Diagnoses: CAP PMH: diabetes, morbid obesity, progressive dyspnea GI: Abd: soft, non tender, large, LBM: 08/26 Skin: left thigh wound IVF: D5W at 100 ml/hr NS as carrier Labs: 08/26: Na 149, K 3.2, CO2 114, Gluc 137, POC GM 129, Ca 8.2 08/25: Na 150, K 3.1, Cl 116, CO2 25, BUN 31, Cr 1.06, Gluc 129, POC Gluc 111-137 08/24: Na 151, K 3.2, Cl 115, CO2 29, BUN 38, Cr 1.03, Gluc 148 08/19: POC GM 207 08/17: K 3.1, Cl 108, CO2 19, BUN 61, Creat 1.56, Gluc 145, Ca 7.5 Meds: abx, insulin, zofran, senokot, lispro, KCl IVPB Ht: 72 in Wt: 366 lbs BMI: 50.6 kg/m^2 IBW: 178 lbs Malnutrition Evaluation (08/17) The patient does not meet criteria for a specified degree of malnutrition at this time. Will re-evaluate at follow-up as appropriate. Supporting Evidence: Fluid accumulation: trace edema Nutrition Prescription (Diet Order): Glucerna 1.2 at 20 ml/hr with goal rate of 65 ml/hr pending start Estimated Nutritional Needs: Calories: 0839-0449 (22-25 kcal/day) Weight used : IBW: 80.9 kg Protein : 810-121 gram/protein/day (1-1.5) Weight used: IBW: 80.9 kg Diet Adequacy: Not meeting calorie needs, Not meeting protein needs Diet Education Needs Assessment: Diet education indicated, but patient not appropriate for education at this time. Nutrition Care Level: High- remains NPO Diet tolerance: Pending, remains NPO Nutrition Diagnosis: Inadequate energy intake related to medical condition as evidenced by nurses reports of poor intake and chewing/swallowing difficulty. Goal: Patient will meet 75-100% of estimated needs by follow up Progress: not progressing Interventions: Carb, mineral (sodium), altered texture-modified diet, Prescription medications, Collaboration with other providers, modify rate of enteral nutrition, modify route of enteral nutrition, modify composition of enteral nutrition Monitoring/Evaluation: -Total energy intake, Total protein intake, formula/solution, Prescription medication, Modified diet, Signed: Massiel Ponce RD, LD
--- NOTE | 2019-08-26 17:48 | Diagnostic Imaging Report ---
Exam: KUB - 2 views Indication: NG tube placement Comparison: KUB of 08/24/2019 Findings: Interval placement of weighted tip feeding tube. Initial images demonstrate coiling of the feeding tube in the proximal stomach. Following adjustment. The tube is uncoiled with tip below the diaphragm in the body of the stomach. Nonobstructive bowel gas pattern. No free air. Residual contrast in the colon. Impression: NG tube projects below the diaphragm with tip in the body the stomach. Signed by: Paresh Willson MD on 08/26/2019 5:45 PM
--- NOTE | 2019-08-26 19:24 | NUR ---
Dr. Aleman returned page from day shift, clarified that NG tube is in correct position to start tube feedings, glucerna @ 50.
--- NOTE | 2019-08-26 20:51 | Diagnostic Imaging Report ---
ADDENDUM #1 Dobbhoff distal tip is projected on the right upper quadrant in the expected location of the gastric antrum or possibly the first portion of the duodenum. Residual contrast within the cecum and rectum. Moderate diffuse gaseous distention of the colon. Signed by: Dr. Chan Ricci M.D. on 08/26/2019 10:04 PM ORIGINAL REPORT Exam: Abdominal film Clinical History: Dobbhoff tube advancement Comparison: None. DISCUSSION: See impression IMPRESSION: Dobbhoff tube advanced with tip right of midline Signed by: Dr. Oscar Lopez M.D. on 08/26/2019 8:47 PM
[2019-08-26] MEDS: INSULIN GLARGINE 100 UNITS/ML VIAL SQ SCH (21:00)
[2019-08-26] MEDS: IRON SUCROSE 200 MG in SODIUM CHLORIDE 0.9% 100 ML 100 ML IV SCH (21:02)
[2019-08-27] VITALS (25 sets, daily range): BP systolic 105–157; BP diastolic 38–93
[2019-08-27] MEDS: ALBUTEROL/IPRATROPIUM 3 ML NEB NEB SCH ×4 (00:50→19:30)
[2019-08-27 05:45] LABS: ANION GAP 9.3 mmol/L (8-16); BLOOD UREA NITROGEN 23 mg/dL (7-26); BUN/CREATININE RATIO 17 (6-25); CALCIUM 8.2 mg/dL (8.4-10.2); CARBON DIOXIDE 27 mmol/L (22-29); CHLORIDE 112 mmol/L (98-107); CREATININE, SERUM 1.35 mg/dL (0.72-1.25); EST GLOMERULAR FILTRATION RATE > 60 ML/MIN (60-); GLUCOSE 161 mg/dL (74-118); MAGNESIUM 1.4 MG/DL (1.3-2.1); POTASSIUM 3.3 mmol/L (3.5-5.1); SODIUM 145 mmol/L (136-145)
[2019-08-27] MEDS: MEROPENEM 500MG/ NS 50ML 50 ML IV SCH ×3 (06:02→22:13)
[2019-08-27] MEDS: ONDANSETRON HCL INJ 2MG/ML 2ML 2 MG/ML VIAL IV PRN (06:11)
[2019-08-27] MEDS: DEXTROSE 5% 1,000 ML IV SCH (06:37)
[2019-08-27] MEDS: INSULIN LISPRO 100 UNIT/1 ML 3ML VIAL SQ SCH ×5 (07:30→20:23)
[2019-08-27] MEDS: SODIUM HYPOCHLORITE 0.25% 480 ML SOLN IR SCH (09:00)
[2019-08-27] MEDS ORDERED: SODIUM CHLORIDE 0.45% 1,000 ML IV SCH (09:15)
[2019-08-27] MEDS: ASPIRIN 81 MG CHEW TAB PO SCH (09:16)
[2019-08-27] MEDS: SENNOSIDES 8.6 MG TAB PO SCH ×2 (09:17→17:00)
[2019-08-27] MEDS: CHLORTHALIDONE 25 MG TAB PO SCH (09:17)
[2019-08-27] MEDS: BALSAM PERU/CASTOR OIL 60 GM OINT...G. TP SCH (09:17)
[2019-08-27] MEDS: METOCLOPRAMIDE HCL 10 MG/2ML VIAL IV SCH ×3 (09:26→22:13)
[2019-08-27] MEDS ORDERED: MAGNESIUM SULFATE 2GM/50ML 50 ML IV ONE (09:30)
[2019-08-27] MEDS ORDERED: POTASSIUM CHLORIDE 20MEQ/15ML UDC NG ONE (09:30)
[2019-08-27] MEDS ORDERED: MAGNESIUM SULFATE 2GM/50ML IV ONE (09:30)
--- NOTE | 2019-08-27 10:00 | NUR ---
Emesis this am x2. Tube feed on hold. Dr Aleman and Dr Loera aware. Dr Loera advised to resume feeding at 10cc/hr.
--- NOTE | 2019-08-27 10:00 | NUR ---
Left thigh wound cleansed, wound vac initiated. Healthy appearing wound bed. No complications noted.
[2019-08-27] MEDS: VANCOMYCIN 1GM/NS 250 ML 250 ML IV SCH (10:55)
--- NOTE | 2019-08-27 11:57 | Diagnostic Imaging Report ---
Exam: KUB - 2 views Clinical History: Enteric tube. Comparison: KUB 08/26/2019 at 7:40 PM. Findings/Impression: Limited evaluation secondary to soft tissue attenuation. The weighted enteric feeding tube terminates in the right upper quadrant, likely in the distal stomach or first portion of the duodenum. Scattered residual contrast within the colon. Moderate gaseous distention of the colon. Signed by: Dr. Kayode Forbes MD on 08/27/2019 11:54 AM
[2019-08-27] MEDS: SODIUM CHLORIDE 0.45% IV SCH (13:30)
[2019-08-27] MEDS: POTASSIUM CHL IV SCH (13:30)
--- NOTE | 2019-08-27 14:03 | NUR ---
DO NOT PUT CRUSHED MEDICATIONS IN DOBHOFF TUBE, per Dr Loera. He does not want the dobhoff tube blocked.
[2019-08-27] MEDS ORDERED: MAGNESIUM HYDROXIDE 30 ML UDC PO ONE (14:15)
--- NOTE | 2019-08-27 17:02 | NUR ---
nurse deferred tx due to pt having a wound vac placed and pt cleaned Addendum: 08/27/19 at 1703 by Cesar Morrison PTA Amended: Links added.
--- NOTE | 2019-08-27 17:31 | Progress Note ---
DATE: 08/27/2019 SUBJECTIVE: Mr. Valerio remains in intensive care unit, but clinically better more alert. No complaints. REVIEW OF SYSTEMS: Otherwise unremarkable. OBJECTIVE: GENERAL: He is currently alert and oriented. VITAL SIGNS: Stable. No fever. Temperature 97.7. HEENT: Normocephalic. Not icteric. NECK: Supple. No JVD. No lymphadenopathy. No thyromegaly. CHEST: Clear bilateral. HEART: S1, S2. No S3, S4, or murmur. ABDOMEN: Soft and obese. EXTREMITIES: No edema. The wound is large, but clean. Wound VAC is applied. LABORATORY DATA: Reviewed. His white count is 19.47, which was slowly trending down. We will get CBC. Hemoglobin 8.6 and platelets 443. His vancomycin trough was 15.7. Sodium 145, potassium 3.3, and creatinine 1.35. MEDICATIONS: The patient remains on: 1. Vancomycin. 2. DuoNeb. 3. Senokot. 4. Aspirin. 5. Zofran. 6. Meropenem. MICROBIOLOGY DATA: His cultures gram-positive kailash, E coli, ESBL from the wound. ASSESSMENT: 1. Necrotizing soft tissue infection. The patient is morbidly obese. Continue with the current choice of IV antibiotic. 2. Morbidly obese patient. 3. Acute kidney injury with underlying chronic kidney disease. 4. resolved. 5. He would be a good candidate to go to an LTAC. He probably need to be in the hospital for another week or so. Further recommendations to follow. MD KENNEY Che/JUANCHO /[id number]
[2019-08-27] MEDS: IRON SUCROSE 200 MG in SODIUM CHLORIDE 0.9% 100 ML 100 ML IV SCH (20:23)
[2019-08-27] MEDS: INSULIN GLARGINE 100 UNITS/ML VIAL SQ SCH (20:24)
[2019-08-28] VITALS (25 sets, daily range): BP systolic 110–152; BP diastolic 34–98
[2019-08-28] MEDS: ONDANSETRON HCL INJ 2MG/ML 2ML 2 MG/ML VIAL IV PRN
[2019-08-28] MEDS: ALBUTEROL/IPRATROPIUM 3 ML NEB NEB SCH ×4 (01:02→19:25)
[2019-08-28] MEDS: SODIUM CHLORIDE 0.45% IV SCH ×2 (01:51→16:09)
[2019-08-28] MEDS: POTASSIUM CHL IV SCH ×2 (01:51→16:09)
[2019-08-28] MEDS: METOCLOPRAMIDE HCL 10 MG/2ML VIAL IV SCH ×4 (04:10→22:05)
[2019-08-28 05:07] LABS: BASOPHILS # (AUTO) 0.1 (0.0-0.1); BASOPHILS % 0.4 % (0.0-1.0); EOSINOPHILS # (AUTO) 0.4 (0.0-0.4); EOSINOPHILS % 2.9 % (0.0-6.0); HEMOGLOBIN 8.2 g/dL (14.0-18.0); LYMPHOCYTES # (AUTO) 1.4 (1.0-3.2); LYMPHOCYTES % 10.2 % (18.0-39.1); MEAN CORPUSCULAR HEMOGLOBIN 29.7 pg (28-32); MEAN CORPUSCULAR HGB CONC 30.4 g/dL (31-35); MEAN CORPUSCULAR VOLUME 97.8 fL (81-99); MONOCYTES # (AUTO) 1.4 (0.2-0.8); MONOCYTES % 9.7 % (4.4-11.3); NEUTROPHILS # (AUTO) 10.6 (2.1-6.9); PLATELET COUNT 295 x10e3/uL (140-360); RED BLOOD COUNT 2.76 x10e6/uL (4.3-5.7); RED CELL DISTRIBUTION WIDTH 15.5 % (11.7-14.4)
[2019-08-28] MEDS: MEROPENEM 500MG/ NS 50ML 50 ML IV SCH ×3 (05:12→22:05)
[2019-08-28 05:38] LABS: ANION GAP 10.3 mmol/L (8-16); CALCIUM 8.1 mg/dL (8.4-10.2); CREATININE, SERUM 1.59 mg/dL (0.72-1.25); MAGNESIUM 1.6 MG/DL (1.3-2.1); POTASSIUM 3.3 mmol/L (3.5-5.1)
[2019-08-28] MEDS: INSULIN LISPRO 100 UNIT/1 ML 3ML VIAL SQ SCH ×4 (07:30→20:39)
[2019-08-28] MEDS: ASPIRIN 81 MG CHEW TAB PO SCH (08:10)
[2019-08-28] MEDS: SODIUM HYPOCHLORITE 0.25% 480 ML SOLN IR SCH (08:10)
[2019-08-28] MEDS: BALSAM PERU/CASTOR OIL 60 GM OINT...G. TP SCH (08:11)
[2019-08-28] MEDS: SENNOSIDES 8.6 MG TAB PO SCH ×2 (08:11→16:09)
[2019-08-28] MEDS: CHLORTHALIDONE 25 MG TAB PO SCH (08:11)
[2019-08-28] MEDS ORDERED: MAGNESIUM SULFATE 2GM/50ML IV ONE (08:45)
[2019-08-28] MEDS ORDERED: MAGNESIUM SULFATE 2GM/50ML 50 ML IV ONE (09:00)
[2019-08-28] MEDS: POTASSIUM CHLORIDE 20MEQ/100ML 100 ML IV SCH ×2 (09:36→14:12)
[2019-08-28] MEDS: VANCOMYCIN 1GM/NS 250 ML 250 ML IV SCH (09:37)
[2019-08-28] MEDS: IRON SUCROSE 200 MG in SODIUM CHLORIDE 0.9% 100 ML 100 ML IV SCH (20:11)
[2019-08-28] MEDS: INSULIN GLARGINE 100 UNITS/ML VIAL SQ SCH (20:39)
[2019-08-29] VITALS (23 sets, daily range): BP systolic 105–159; BP diastolic 36–94
[2019-08-29] MEDS: ALBUTEROL/IPRATROPIUM 3 ML NEB NEB SCH ×4 (00:45→19:20)
[2019-08-29] MEDS: SODIUM CHLORIDE 0.45% IV SCH (04:07)
[2019-08-29] MEDS: POTASSIUM CHL IV SCH (04:07)
[2019-08-29] MEDS: METOCLOPRAMIDE HCL 10 MG/2ML VIAL IV SCH ×4 (04:09→21:32)
[2019-08-29] MEDS: MEROPENEM 500MG/ NS 50ML 50 ML IV SCH ×2 (05:34→14:00)
[2019-08-29 06:00] LABS: ANION GAP 8.4 mmol/L (8-16); CALCIUM 8.2 mg/dL (8.4-10.2); CREATININE, SERUM 1.6 mg/dL (0.72-1.25); POTASSIUM 3.4 mmol/L (3.5-5.1)
[2019-08-29 07:11] LABS: BASOPHILS # (AUTO) 0.1 (0.0-0.1); BASOPHILS % 0.6 % (0.0-1.0); EOSINOPHILS # (AUTO) 0.6 (0.0-0.4); EOSINOPHILS % 5.4 % (0.0-6.0); HEMATOCRIT 26.4 % (38.2-49.6); HEMOGLOBIN 8.2 g/dL (14.0-18.0); LYMPHOCYTES # (AUTO) 1.5 (1.0-3.2); LYMPHOCYTES % 13.1 % (18.0-39.1); MEAN CORPUSCULAR HEMOGLOBIN 30.4 pg (28-32); MEAN CORPUSCULAR HGB CONC 31.1 g/dL (31-35); MEAN CORPUSCULAR VOLUME 97.8 fL (81-99); MONOCYTES # (AUTO) 1.4 (0.2-0.8); MONOCYTES % 12.5 % (4.4-11.3); NEUTROPHILS # (AUTO) 7.8 (2.1-6.9); NEUTROPHILS % 67.4 % (38.7-80.0); PLATELET COUNT 307 x10e3/uL (140-360); RED CELL DISTRIBUTION WIDTH 15.5 % (11.7-14.4)
[2019-08-29] MEDS: INSULIN LISPRO 100 UNIT/1 ML 3ML VIAL SQ SCH ×4 (07:30→21:00)
[2019-08-29] MEDS: ASPIRIN 81 MG CHEW TAB PO SCH (09:00)
[2019-08-29] MEDS: CHLORTHALIDONE 25 MG TAB PO SCH (09:00)
[2019-08-29] MEDS: SENNOSIDES 8.6 MG TAB PO SCH ×2 (09:00→16:39)
[2019-08-29] MEDS: SODIUM HYPOCHLORITE 0.25% 480 ML SOLN IR SCH (09:00)
[2019-08-29] MEDS: BALSAM PERU/CASTOR OIL 60 GM OINT...G. TP SCH (09:35)
[2019-08-29] MEDS: VANCOMYCIN 1GM/NS 250 ML 250 ML IV SCH (10:00)
--- NOTE | 2019-08-29 10:52 | NUR ---
Nutrition Intervention Note RD Recommendation(s) for Physician (08/29): - TF recommendation via DHT: Continue Glucerna 1.2 at 20 ml/hr advance as tolerated and medically feasible with goal rate of 65 ml/hr (to provide 1872 kcal and 94 gm protein). -IVF management and additional flushes per MD. -Advancement of diet per LEAD PROJECT ENGINEER/MD. Recommend 2 gm Na, 2000 ADA, texture per speech. -Recommend Homero 1 packet BID to promote wound healing. -Monitor low lytes and replace as needed. Plan of Care: RD following, monitoring for tolerance and adequacy. EN recs. Nutrition reason for involvement: Follow up RD Assessment 08/29: Follow up: Pt was seen resting in the ICU, DHT in place, no pressor support and is not on ventilation at this time. Per nurse, the pt was having some N/V so the MD told her to keep TFs at 20 ml/hr. Pt is working with speech today per nurse and MBS is set for tmrw. Pt is off of IVF and is getting his potassium replaced. LTACH d/c per progress note is a possibilty. Weight change has been noted- pt was 366 lbs on 08/19, now 352 lbs. This could be related to fluid-pt is on diuretics, no edema noted per progress note. Wound vac has been applied per progress note on 08/27. Will continue to monitor. 08/26: Discussed pt in rounds, per nurse plan is for DHT placement again today, no plans for TPN. Recommendations are as above. No pressors, propofol or ventilation at this present time. Per IM note- pt will remain on D5W ,replace potassium and await feeding tube, Na is trending down. If pt fails swallow eval from LEAD PROJECT ENGINEER, recommend peg placement if appropriate. Will continue to monitor. 08/25: Pt seen for f/u, TF ordered however start pending 2/2 pt pulled NGT overnight. EN remains most appropriate for pt, discussed with team during am rounds. No discussion of PEG/Gtube placement as of yet. No TPN ordered currently, pt on D5W IVF and lytes replaced. Current rec's remain appropriate. Plan for discharge to LTAC ongoing. Will monitor and continue to follow. 08/24: Pt seen for f/u, remains NPO x day 6. Pt discussed during am rounds, plans to start TPN this evening- no barriers to utilizing GI tract. Pt pulled NGT previously, per RN doesn't want another NGT placed. Discussed EN with pt and , they are amenable to proceeding with EN and understand tube would have to be replaced. RD rec's discussed in rounds and with RN. LEAD PROJECT ENGINEER following for dysphagia. MD paged, awaiting return call. 08/19: Follow up: Pt has been intubated and is sedated on fentanyl, no propofol. Per nurse pt is on 12 mcg of levo currently but is trying to decrease if medically feasible. Provided EN recommendations above if MD would like to start tube feeds. Discussed pt in rounds: feeding the pt is not the plan currently, they want to try to extubate the pt tmrw. Per progress note- chest xray is showing some fluid overload and there is no need for emergent dialysis. Speech was consulted, MBS is pending after extubation. Pt is meeting 88% of his recommended energy needs and 111% of his recommended protein needs with TF recommendations above. Will continue to monitor. 08/17: Follow up: Discussed pt in rounds. Nurse reports the pt is not improving and per progress note pt appears sicker. Pt is status post debridement of the left thigh, was on levophed but per nurse is off now. Pt was observed in the ICU resting with nasal cannula in place, daughter at bedside. Per nurse the pt developed chewing/swallowing issues this morning and has not eaten much lately. Pt has fluid overload, was started on lasix and IVF has been d/c. Per chest x-ray yesterday, the pt had come congestion. Per MD note, pt does not need dialysis yet, but needs to be monitored. Will continue to monitor. (08/13/2019) Chart reviewed. Labs and meds reviewed. Initial encounter with patient. Pt with C/O biting/chewing difficulty related to poor fitting dentures as evidenced by pt having difficulty eating regular textures. Offered pt a texture modification and he refused, but his daughter requested a texture modification. Pt denies nausea, vomiting or diarrhea. Pt states that he's not a big eater. No significant wt changes. Pt can feed himself, but his daughter helps to feed the pt. Principal Problems/Diagnoses: CAP PMH: diabetes, morbid obesity, progressive dyspnea GI: Abd: soft, non tender, large, round LBM: 08/29 Skin: left thigh wound IVF: ---- Labs: 08/29: K 3.4, Cl 112, Creat 1.60, Gluc 127, POC GM 125, Ca 8.2 08/26: Na 149, K 3.2, CO2 114, Gluc 137, POC GM 129, Ca 8.2 08/25: Na 150, K 3.1, Cl 116, CO2 25, BUN 31, Cr 1.06, Gluc 129, POC Gluc 111-137 08/24: Na 151, K 3.2, Cl 115, CO2 29, BUN 38, Cr 1.03, Gluc 148 08/19: POC GM 207 08/17: K 3.1, Cl 108, CO2 19, BUN 61, Creat 1.56, Gluc 145, Ca 7.5 Meds: abx, insulin, zofran, senokot, lispro, KCl IVPB, iron sucrose, chlorthalidone Ht: 72 in Wt: 352 lbs BMI: 47.7 kg/m^2 IBW: 178 lbs Malnutrition Evaluation (08/17) The patient does not meet criteria for a specified degree of malnutrition at this time. Will re-evaluate at follow-up as appropriate. Supporting Evidence: Fluid accumulation: trace edema Nutrition Prescription (Diet Order): Glucerna 1.2 at 20 ml/hr with goal rate of 50 ml/hr pending start Estimated Nutritional Needs: Calories: 7023-0273 (22-25 kcal/day) Weight used : IBW: 80.9 kg Protein : 810-121 gram/protein/day (1-1.5) Weight used: IBW: 80.9 kg Diet Adequacy: Not meeting calorie needs, Not meeting protein needs Diet Education Needs Assessment: Diet education indicated, but patient not appropriate for education at this time. Nutrition Care Level: mod- pt has started on TFs. Diet tolerance: tolerating TFS so far Nutrition Diagnosis: Inadequate energy intake related to medical condition as evidenced by nurses reports of poor intake and chewing/swallowing difficulty. Goal: Patient will meet 75-100% of estimated needs by follow up Progress: not progressing Interventions: Carb, mineral (sodium), altered texture-modified diet, Prescription medications, Collaboration with other providers, modify rate of enteral nutrition, modify route of enteral nutrition, modify composition of enteral nutrition Monitoring/Evaluation: -Total energy intake, Total protein intake, formula/solution, Prescription medication, Modified diet, Signed: Massiel Ponce RD, LD
[2019-08-29] MEDS: MORPHINE SULFATE INJ 4 MG/ML INJ 1ML IV PRN (15:17)
[2019-08-29] MEDS: CEFTRIAXONE SOD 1 GM/NS 50 ML 50 ML IV SCH (16:38)
[2019-08-29] MEDS ORDERED: POTASSIUM CHL IV SCH (17:00)
[2019-08-29] MEDS ORDERED: SODIUM CHLORIDE 0.45% IV SCH (17:00)
[2019-08-29] MEDS: SOD CHL 0.45%/POT CHL 20MEQ 1,000 ML IV SCH (17:30)
--- NOTE | 2019-08-29 19:21 | Progress Note ---
DATE: 08/29/2019 SUBJECTIVE: Mr. Valerio is stable. No new complaints. His is thinking he could be a little bit more confused. PHYSICAL EXAMINATION: He remains obese, no issues, but the wound looks really good. It is healthy, beefy. I saw the wound with the wound care. There is no drainage. IMPRESSION AND PLAN: 1. Necrotizing soft tissue infection, status post debridement, doing good. 2. Acute kidney injury on chronic kidney disease, slightly getting worse. I am going to stop the vancomycin. 3. Altered mental status, which could be from meropenem. I am going to stop that also. In the meantime, I am going to put him on Rocephin. Continue with local care and reassess in the morning. Discussed with the family. Discussed with the medical team. MD KENNEY Che/JUANCHO /[id number]
[2019-08-29] MEDS: INSULIN GLARGINE 100 UNITS/ML VIAL SQ SCH (21:00)
[2019-08-29] MEDS: IRON SUCROSE 200 MG in SODIUM CHLORIDE 0.9% 100 ML 100 ML IV SCH (21:31)
[2019-08-30] VITALS (24 sets, daily range): BP systolic 100–163; BP diastolic 40–92
[2019-08-30] MEDS: ALBUTEROL/IPRATROPIUM 3 ML NEB NEB SCH ×4 (01:05→19:27)
[2019-08-30] MEDS: METOCLOPRAMIDE HCL 10 MG/2ML VIAL IV SCH ×4 (04:41→22:59)
[2019-08-30 05:36] LABS: BASOPHILS # (AUTO) 0.1 (0.0-0.1); BASOPHILS % 0.6 % (0.0-1.0); EOSINOPHILS # (AUTO) 0.7 (0.0-0.4); EOSINOPHILS % 5.5 % (0.0-6.0); HEMATOCRIT 27.4 % (38.2-49.6); HEMOGLOBIN 8.3 g/dL (14.0-18.0); LYMPHOCYTES # (AUTO) 1.5 (1.0-3.2); LYMPHOCYTES % 11.5 % (18.0-39.1); MEAN CORPUSCULAR HEMOGLOBIN 29.5 pg (28-32); MEAN CORPUSCULAR HGB CONC 30.3 g/dL (31-35); MEAN CORPUSCULAR VOLUME 97.5 fL (81-99); MONOCYTES # (AUTO) 1.6 (0.2-0.8); MONOCYTES % 12.5 % (4.4-11.3); NEUTROPHILS # (AUTO) 8.7 (2.1-6.9); NEUTROPHILS % 68.9 % (38.7-80.0); PLATELET COUNT 294 x10e3/uL (140-360); RED BLOOD COUNT 2.81 x10e6/uL (4.3-5.7); RED CELL DISTRIBUTION WIDTH 15.3 % (11.7-14.4)
[2019-08-30 05:54] LABS: ANION GAP 9.5 mmol/L (8-16); CALCIUM 8.4 mg/dL (8.4-10.2); CREATININE, SERUM 1.62 mg/dL (0.72-1.25); POTASSIUM 3.5 mmol/L (3.5-5.1)
[2019-08-30] MEDS: SOD CHL 0.45%/POT CHL 20MEQ 1,000 ML IV SCH (06:37)
--- NOTE | 2019-08-30 06:51 | NUR ---
Changed wound vac canister at 0630. Output documented.
[2019-08-30] MEDS: INSULIN LISPRO 100 UNIT/1 ML 3ML VIAL SQ SCH ×4 (07:30→21:00)
[2019-08-30] MEDS: SODIUM HYPOCHLORITE 0.25% 480 ML SOLN IR SCH (07:55)
[2019-08-30] MEDS: ASPIRIN 81 MG CHEW TAB PO SCH (09:00)
[2019-08-30] MEDS: SENNOSIDES 8.6 MG TAB PO SCH ×2 (09:00→17:00)
[2019-08-30] MEDS: BALSAM PERU/CASTOR OIL 60 GM OINT...G. TP SCH (09:08)
--- NOTE | 2019-08-30 09:54 | NUR ---
WOUNDCARE CONSULT DONE 08-29-19 FOR 79 YO MALE POST SURGICAL 08/18 LEFT INNER THIGH ABSCESS WOUND DESCRIPTION ON WOUND FLOW SHEET PT WAS PRE MEDICATED PRIOR TO NEGATIVE PRESSURE DRESSING CHANGE BLACK FOAM HAD TO BE SLOWLY SOAKED IN SALINE DUE TO HYPERGRANULATION INTO FOAM PORES DRESSING REAPPLIED WITH WHITE FOAM TO WOUND BASE AND SOME BLACK FOAM DUE TO AVAILABILITY OF WHITE FOAM ( CS ORDER FOR WHITE FOAM FOR NEXT PLANNED DRESSING CHANGE MADE TO ENSURE SUFFICIENT AMOUNT ) WOUND BED WAS HEALTHY AND A MARKED DECREASE IN FOUL ODOR NOTED NEXT DRESSING CHANGE PLANNED FOR Thursday RECOMMENDATIONS : NURSING TO MAINTAIN NEGATIVE PRESSURE THERAPY CONTACT WOUND CARE IF ANY SUPPORT IS NEEDED FOR DRESSING MAINTENANCE OR REAPPLICATION Addendum: 08/30/19 at 1009 by Adilson Art RN Amended: Links added.
--- NOTE | 2019-08-30 13:08 | Diagnostic Imaging Report ---
Exam: KUB - 2 views Indication: Dobbhoff placement Comparison: Prior KUBs most recently 08/27/2019 Findings: Initial KUB demonstrates weighted tip feeding tube terminating at the gastroesophageal junction. The tube was advanced by the ICU care team and subsequent repeat KUB shows tip below the diaphragm, terminating in the stomach. Impression: Weighted tip feeding tube with final position in the stomach as above. Signed by: Paresh Willson MD on 08/30/2019 1:05 PM
[2019-08-30 15:10] LABS: ALPHA 2 GLOBULIN URINE PEP 10.4 % (.)
[2019-08-30] MEDS: CEFTRIAXONE SOD 1 GM/NS 50 ML 50 ML IV SCH (15:43)
--- NOTE | 2019-08-30 16:59 | Diagnostic Imaging Report ---
PROCEDURE: X-RAY MODIFIED BARIUM SWALLOW COMPARISON: None. INDICATION: Aspiration Radiation Details: Fluoroscopy time: 3.4 minutes Cumulative dose: 19.9 mGy DISCUSSION: Fluoroscopic examination was performed in conjunction with speech pathology during swallowing a variety of thin and thick liquid consistencies. Provided images demonstrate laryngeal penetration with thin liquids but no aspiration. CONCLUSION: Modified barium swallow demonstrating laryngeal penetration with thin liquids but no aspiration. Please refer to the speech pathology report for further details. Signed by: Paresh Willson MD on 08/30/2019 4:56 PM
--- NOTE | 2019-08-30 17:19 | NUR ---
Tube feedings placed on hold by nightshift RN due to placement of tube may have shifted. KUB ordered to check placement. Per radiology it is difficult to determine placement on bedside kub. Patient was taken down for x ray, radiologist at bedside stated tube needs further advancement. city library director and repeat x ray shows correct placement per radiologist. Patient passed modified barium swallow test. Recommendations made per speech therapy for mechanical soft diet, chopped meats, thin liquids and nocturnal feedings from 11pm to 4am to maintain nutrition. Dr. Aleman notified and gave orders for diet. Patient ambulated in room with physical therapy. Patient refused to sit in chair. Wound vac remains CDI. Will continue to monitor the patient.
[2019-08-30] MEDS: ONDANSETRON HCL INJ 2MG/ML 2ML 2 MG/ML VIAL IV PRN (18:53)
--- NOTE | 2019-08-30 19:47 | NUR ---
Patient had episode of nausea and vomiting at shift change. Zofran previously just administered. Handoff given to metal weather stripper RN
[2019-08-30] MEDS: INSULIN GLARGINE 100 UNITS/ML VIAL SQ SCH (21:00)
[2019-08-31] VITALS (19 sets, daily range): BP systolic 92–164; BP diastolic 37–104
[2019-08-31] MEDS: ALBUTEROL/IPRATROPIUM 3 ML NEB NEB SCH ×4 (01:15→20:00)
[2019-08-31] MEDS: METOCLOPRAMIDE HCL 10 MG/2ML VIAL IV SCH ×4 (04:32→22:00)
[2019-08-31 05:22] LABS: BASOPHILS # (AUTO) 0.1 (0.0-0.1); BASOPHILS % 0.5 % (0.0-1.0); EOSINOPHILS # (AUTO) 0.5 (0.0-0.4); EOSINOPHILS % 3.8 % (0.0-6.0); HEMATOCRIT 26.2 % (38.2-49.6); HEMOGLOBIN 8.1 g/dL (14.0-18.0); LYMPHOCYTES # (AUTO) 1.6 (1.0-3.2); LYMPHOCYTES % 12.2 % (18.0-39.1); MEAN CORPUSCULAR HGB CONC 30.9 g/dL (31-35); MONOCYTES # (AUTO) 1.6 (0.2-0.8); MONOCYTES % 12.2 % (4.4-11.3); NEUTROPHILS # (AUTO) 9.1 (2.1-6.9); NEUTROPHILS % 70.4 % (38.7-80.0); PLATELET COUNT 277 x10e3/uL (140-360); RED CELL DISTRIBUTION WIDTH 15.5 % (11.7-14.4)
[2019-08-31 05:49] LABS: ANION GAP 11.1 mmol/L (8-16); CREATININE, SERUM 1.61 mg/dL (0.72-1.25); POTASSIUM 3.1 mmol/L (3.5-5.1)
--- NOTE | 2019-08-31 07:03 | NUR ---
Notified Dr. Aleman of K+ 3.1 and patient attempting to remove dobhoff twice. Orders to remove dobhoff and administer 40 meq K+ IV once. Orders placed and passed on to day shift RN.
[2019-08-31] MEDS: INSULIN LISPRO 100 UNIT/1 ML 3ML VIAL SQ SCH ×4 (07:30→21:00)
[2019-08-31] MEDS ORDERED: POTASSIUM CHLORIDE 20MEQ/100ML 200 ML IV ONE (07:30)
[2019-08-31] MEDS: ONDANSETRON HCL INJ 2MG/ML 2ML 2 MG/ML VIAL IV PRN (07:57)
[2019-08-31] MEDS: SODIUM HYPOCHLORITE 0.25% 480 ML SOLN IR SCH (09:00)
[2019-08-31] MEDS: SENNOSIDES 8.6 MG TAB PO SCH ×2 (09:00→17:00)
[2019-08-31] MEDS: ASPIRIN 81 MG CHEW TAB PO SCH (09:34)
--- NOTE | 2019-08-31 10:46 | NUR ---
RECEIVED CALL FROM [facility] MEEK STATING [facility] WAS DENIED. CALL PLACED TO DR. FERNÁNDEZ TO NOTIFY HE CAN APPEAL DENIAL. WILL AWAIT CALL BACK / ANSWER.
[2019-08-31] MEDS: MORPHINE SULFATE INJ 4 MG/ML INJ 1ML IV PRN (12:03)
[2019-08-31] MEDS: BALSAM PERU/CASTOR OIL 60 GM OINT...G. TP SCH (14:08)
--- NOTE | 2019-08-31 14:26 | NUR ---
WOUNDCARE CONSULT FOR 79 YO MALE POST SURGICAL 08/18 LEFT INNER THIGH ABSCESS WOUND DESCRIPTION ON WOUND FLOW SHEET PT WAS PRE MEDICATED PRIOR TO NEGATIVE PRESSURE DRESSING CHANGE DRESSING REAPPLIED WITH WHITE FOAM TO WOUND BASE WOUND BED WAS HEALTHY AND A MARKED DECREASE IN FOUL ODOR NOTED NEXT DRESSING CHANGE PLANNED FOR Thursday09-02-19 RECOMMENDATIONS : NURSING TO MAINTAIN NEGATIVE PRESSURE THERAPY CONTACT WOUND CARE IF ANY SUPPORT IS NEEDED FOR DRESSING MAINTENANCE OR REAPPLICATION Addendum: 08/31/19 at 1429 by Adilson Art RN Amended: Links added.
[2019-08-31] MEDS: CEFTRIAXONE SOD 1 GM/NS 50 ML 50 ML IV SCH (18:44)
[2019-08-31] MEDS: INSULIN GLARGINE 100 UNITS/ML VIAL SQ SCH (21:00)
[2019-08-31] MEDS: FERROUS SULFATE 325 MG TAB PO SCH (21:34)
[2019-09-01] VITALS (12 sets, daily range): BP systolic 119–168; BP diastolic 40–65
[2019-09-01] MEDS: ALBUTEROL/IPRATROPIUM 3 ML NEB NEB SCH ×4 (00:30→19:15)
[2019-09-01] MEDS: METOCLOPRAMIDE HCL 10 MG/2ML VIAL IV SCH ×4 (04:12→22:13)
[2019-09-01 05:17] LABS: BASOPHILS # (AUTO) 0.1 (0.0-0.1); BASOPHILS % 0.7 % (0.0-1.0); EOSINOPHILS # (AUTO) 0.7 (0.0-0.4); EOSINOPHILS % 5.7 % (0.0-6.0); HEMOGLOBIN 8.4 g/dL (14.0-18.0); LYMPHOCYTES # (AUTO) 1.6 (1.0-3.2); LYMPHOCYTES % 12.3 % (18.0-39.1); MEAN CORPUSCULAR HEMOGLOBIN 29.6 pg (28-32); MEAN CORPUSCULAR VOLUME 98.6 fL (81-99); MONOCYTES # (AUTO) 1.7 (0.2-0.8); MONOCYTES % 13.4 % (4.4-11.3); NEUTROPHILS # (AUTO) 8.5 (2.1-6.9); NEUTROPHILS % 67.2 % (38.7-80.0); PLATELET COUNT 273 x10e3/uL (140-360); RED BLOOD COUNT 2.84 x10e6/uL (4.3-5.7); RED CELL DISTRIBUTION WIDTH 15.5 % (11.7-14.4)
[2019-09-01 05:34] LABS: ANION GAP 12.3 mmol/L (8-16); CALCIUM 9.3 mg/dL (8.4-10.2); CREATININE, SERUM 1.68 mg/dL (0.72-1.25); POTASSIUM 3.3 mmol/L (3.5-5.1)
[2019-09-01] MEDS: ONDANSETRON HCL INJ 2MG/ML 2ML 2 MG/ML VIAL IV PRN (06:55)
[2019-09-01] MEDS: INSULIN LISPRO 100 UNIT/1 ML 3ML VIAL SQ SCH ×4 (07:30→22:13)
[2019-09-01] MEDS: SODIUM HYPOCHLORITE 0.25% 480 ML SOLN IR SCH (09:00)
[2019-09-01] MEDS: ASPIRIN 81 MG CHEW TAB PO SCH (09:00)
[2019-09-01] MEDS: FERROUS SULFATE 325 MG TAB PO SCH ×2 (09:00→14:20)
[2019-09-01] MEDS: SENNOSIDES 8.6 MG TAB PO SCH ×2 (09:00→17:00)
[2019-09-01] MEDS: BALSAM PERU/CASTOR OIL 60 GM OINT...G. TP SCH (10:24)
--- NOTE | 2019-09-01 12:07 | Progress Note ---
DATE: 09/01/2019 SUBJECTIVE: Mr. Valerio is doing better today. He is alert, oriented, no new complaint. His wound continued to improve, looks really good. There is no drainage. No eschar. No new bullous lesion. The wound was really large, but is beefy, good muscular, and bloody. REVIEW OF SYSTEMS: Otherwise, unremarkable. There is order for him to leave the unit. PHYSICAL EXAMINATION: GENERAL: He is currently alert, oriented, does not seem to be in acute distress. VITAL SIGNS: Stable currently afebrile. HEENT: Not icteric. NECK: Supple. CHEST: Clear. HEART: S1 and S2. No murmurs. ABDOMEN: Soft. Bowel sounds present. No tenderness. EXTREMITIES: No edema. IMPRESSION: 1. Sepsis, present on admission. 2. Soft tissue infection on the thigh, present on admission, all resolved. 3. Morbidly obese patient. 4. Debility. 5. Aspiration, but getting slowly better. 6. Anemia of chronic disease. 7. Chronic kidney disease with acute kidney injury. He is currently on ceftriaxone. Stable from Infectious Disease point of view. We will continue with local care. May want to consider Plastic Surgery evaluation. MD KENNEY Che/JUANCHO /[id number]
[2019-09-01] MEDS ORDERED: DEXTROSE 5%/0.9% SOD CHL 1,000 ML IV SCH (14:15)
[2019-09-01] MEDS ORDERED: POTASSIUM CHLORIDE 20MEQ/100ML 100 ML IV ONE ×2 (14:30→17:15)
--- NOTE | 2019-09-01 14:40 | NUR ---
Nutrition Intervention Note RD Recommendation(s) for Physician: -Advancement of diet per POLE FRAMER MACHINE/MD. Recommend 2 gm Na, 2000 ADA, texture per speech -Glucerna Shake TID -Recommend Homero 1 packet BID to promote wound healing -Monitor low lytes and replace as needed Plan of Care: RD following, monitoring for tolerance and adequacy. Diet and ONS rec's. Nutrition reason for involvement: Follow up RD Assessment 09/01: Pt seen today for follow up, POLE FRAMER MACHINE at bedside providing therapy- reports swallowing has improved significantly. Pt pulled DHT on 08/30, TF discontinued. Po intake of diet and supplement remains poor 2/2 to GI tolerance- currently on Reglan. Pt NPO for several days previously, unable to eat more than 20% of meals currently. Pt discussed during am rounds. Wound care following. Will monitor and continue to follow. 08/29: Follow up: Pt was seen resting in the ICU, DHT in place, no pressor support and is not on ventilation at this time. Per nurse, the pt was having some N/V so the MD told her to keep TFs at 20 ml/hr. Pt is working with speech today per nurse and MBS is set for tmrw. Pt is off of IVF and is getting his potassium replaced. LTACH d/c per progress note is a possibilty. Weight change has been noted- pt was 366 lbs on 08/19, now 352 lbs. This could be related to fluid-pt is on diuretics, no edema noted per progress note. Wound vac has been applied per progress note on 08/27. Will continue to monitor. 08/26: Discussed pt in rounds, per nurse plan is for DHT placement again today, no plans for TPN. Recommendations are as above. No pressors, propofol or ventilation at this present time. Per IM note- pt will remain on D5W ,replace potassium and await feeding tube, Na is trending down. If pt fails swallow eval from POLE FRAMER MACHINE, recommend peg placement if appropriate. Will continue to monitor. 08/25: Pt seen for f/u, TF ordered however start pending 2/2 pt pulled NGT overnight. EN remains most appropriate for pt, discussed with team during am rounds. No discussion of PEG/Gtube placement as of yet. No TPN ordered currently, pt on D5W IVF and lytes replaced. Current rec's remain appropriate. Plan for discharge to LTAC ongoing. Will monitor and continue to follow. 08/24: Pt seen for f/u, remains NPO x day 6. Pt discussed during am rounds, plans to start TPN this evening- no barriers to utilizing GI tract. Pt pulled NGT previously, per RN doesn't want another NGT placed. Discussed EN with pt and , they are amenable to proceeding with EN and understand tube would have to be replaced. RD rec's discussed in rounds and with RN. POLE FRAMER MACHINE following for dysphagia. MD paged, awaiting return call. 08/19: Follow up: Pt has been intubated and is sedated on fentanyl, no propofol. Per nurse pt is on 12 mcg of levo currently but is trying to decrease if medically feasible. Provided EN recommendations above if MD would like to start tube feeds. Discussed pt in rounds: feeding the pt is not the plan currently, they want to try to extubate the pt tmrw. Per progress note- chest xray is showing some fluid overload and there is no need for emergent dialysis. Speech was consulted, MBS is pending after extubation. Pt is meeting 88% of his recommended energy needs and 111% of his recommended protein needs with TF recommendations above. Will continue to monitor. 08/17: Follow up: Discussed pt in rounds. Nurse reports the pt is not improving and per progress note pt appears sicker. Pt is status post debridement of the left thigh, was on levophed but per nurse is off now. Pt was observed in the ICU resting with nasal cannula in place, daughter at bedside. Per nurse the pt developed chewing/swallowing issues this morning and has not eaten much lately. Pt has fluid overload, was started on lasix and IVF has been d/c. Per chest x-ray yesterday, the pt had come congestion. Per MD note, pt does not need dialysis yet, but needs to be monitored. Will continue to monitor. (08/13/2019) Chart reviewed. Labs and meds reviewed. Initial encounter with patient. Pt with C/O biting/chewing difficulty related to poor fitting dentures as evidenced by pt having difficulty eating regular textures. Offered pt a texture modification and he refused, but his daughter requested a texture modification. Pt denies nausea, vomiting or diarrhea. Pt states that he's not a big eater. No significant wt changes. Pt can feed himself, but his daughter helps to feed the pt. Principal Problems/Diagnoses: CAP PMH: diabetes, morbid obesity, progressive dyspnea GI: LBM: 09/01 Skin: left thigh wound IVF: ---- Labs: 09/01: K 3.3, POC Gluc 114-174 08/29: K 3.4, Cl 112, Creat 1.60, Gluc 127, POC GM 125, Ca 8.2 08/26: Na 149, K 3.2, CO2 114, Gluc 137, POC GM 129, Ca 8.2 08/25: Na 150, K 3.1, Cl 116, CO2 25, BUN 31, Cr 1.06, Gluc 129, POC Gluc 111-137 08/24: Na 151, K 3.2, Cl 115, CO2 29, BUN 38, Cr 1.03, Gluc 148 08/19: POC GM 207 08/17: K 3.1, Cl 108, CO2 19, BUN 61, Creat 1.56, Gluc 145, Ca 7.5 Meds: abx, lantus, zofran, reglan, lispro, KCl IVPB, geodon, feosol Ht: 72 in Wt: 352 lbs BMI: 47.7 kg/m^2 IBW: 178 lbs Malnutrition Evaluation (08/17) The patient does not meet criteria for a specified degree of malnutrition at this time. Will re-evaluate at follow-up as appropriate. Supporting Evidence: Fluid accumulation: trace edema Nutrition Prescription (Diet Order): 1800 ADA, Renal. Glucerna shakes 4 x per day. Estimated Nutritional Needs: Calories: 5558-6207 (22-25 kcal/day) Weight used : IBW: 80.9 kg Protein : 810-121 gram/protein/day (1-1.5) Weight used: IBW: 80.9 kg Diet Adequacy: Not meeting calorie needs, Not meeting protein needs Diet Education Needs Assessment: Diet education indicated, but patient not appropriate for education at this time. Nutrition Care Level: mod Diet tolerance: tolerance varies Nutrition Diagnosis: Inadequate energy intake related to medical condition as evidenced by nurses reports of poor intake and chewing/swallowing difficulty. Goal: Patient will meet 75-100% of estimated needs by follow up Progress: progressing Interventions: Carb, mineral, altered texture-modified diet, liquid supplements, Prescription medications, Collaboration with other providers Monitoring/Evaluation: Total energy intake, Total protein intake, supplements, Prescription medication, Modified diet Signed: Alice Kaba RD, [facility], [facility]
[2019-09-01 14:42] LABS: AMYLASE 49 U/L (25-125); LIPASE 20 U/L (8-78)
--- NOTE | 2019-09-01 14:51 | Diagnostic Imaging Report ---
Exam: KUB - 2 views Indication: Vomiting Comparison: KUB of 08/30/2019 Findings: NG tube not visualized in the provided field of view. Again seen are air-filled distended loops of colon measuring up to 8 cm. No free air. Residual intraluminal contrast material in the right lower quadrant. Impression: Unchanged air-filled distended colon. No free air. Signed by: Paresh Willson MD on 09/01/2019 2:48 PM
[2019-09-01] MEDS: CEFTRIAXONE SOD 1 GM/NS 50 ML 50 ML IV SCH (17:39)
[2019-09-01] MEDS: PANTOPRAZOLE 40 MG 10ML VIAL IV SCH (17:41)
[2019-09-01] MEDS: DEXTROSE 5% 1,000 ML IV SCH (17:41)
[2019-09-01] MEDS: NYSTATIN 15 GM POWDER UD BTL TOP SCH (18:02)
[2019-09-01] MEDS: INSULIN GLARGINE 100 UNITS/ML VIAL SQ SCH (22:13)
[2019-09-02] VITALS (14 sets, daily range): BP systolic 113–170; BP diastolic 43–58
[2019-09-02] MEDS: ALBUTEROL/IPRATROPIUM 3 ML NEB NEB SCH ×4 (00:30→19:45)
--- NOTE | 2019-09-02 03:41 | Consultation ---
DATE OF CONSULTATION: 09/01/2019 GI Consult Note BODY AFTER ALLERGIES: CONSULTING PHYSICIAN: Cesar Aleman M.D. REASON FOR THE CONSULT: Couple of episodes of coffee-grounds emesis. HISTORY OF PRESENTING ILLNESS: 79-year-old male with a host of comorbidities that includes type 2 diabetes, chronic kidney disease stage 3, hypertension, obesity, reflux, and congestive heart failure, who got admitted on 08/12, due to some sepsis. Infection was determined to be due to necrotizing soft tissue infection of his groin. He is being seen by ID service. Currently, he is in ICU. He is on a broad-spectrum intravenous antibiotics. The patient's ICU course was progressing well. However, today he has had couple of bouts of vomiting, and vomitus was noted quite dark coffee colored. No associated melena. No abdominal pain. Hemoglobin remained stable from 8.3 to 8.4. Vital signs also stable. GI has been consulted for further evaluation and recommendations. REVIEW OF SYSTEMS: A 12-point system reviewed, symptomatology is limited as per HPI. PAST MEDICAL HISTORY: Type 2 diabetes, CKD stage 3, congestive heart failure, hypertension, GERD, hyperlipidemia, and coronary artery disease. PAST SURGICAL HISTORY: Noncontributory. FAMILY HISTORY: Noncontributory. SOCIAL HISTORY: No smoking, alcohol, or any illicit drug use. He smoked in the in the remote past. ALLERGIES: PENICILLIN AND CODEINE. HOME MEDICATIONS: Aspirin, carvedilol, diltiazem, furosemide, hydrochlorothiazide, losartan, omeprazole, spironolactone, and Tresiba. Inpatient medications reviewed. He is on intravenous ceftriaxone. As well as intravenous pantoprazole twice daily. PHYSICAL EXAMINATION: VITAL SIGNS: Temperature 98, pulse 90, respirations 19, blood pressure 139/49, and oxygen saturation 100% on 2 L of nasal cannula. GENERAL: Not in any acute distress. Obese body habitus. Oral mucosa is moist. Anicteric sclerae. CVS: S1 and S2. Regular. LUNGS: Bilaterally grossly clear. ABDOMEN: Soft, nondistended, obese, and nontender. No palpable mass or hernia. Positive bowel sounds. EXTREMITIES: Small draining wound in the left thigh area. Trace leg edema. LABORATORY DATA: Hemoglobin is stable from 8.1 to 8.4, WBC 12.9 to 12.72, hematocrit 28 from 26.2, and platelet count 273. MCV 98.6. Sodium 147, potassium 3.3, chloride 114, bicarb 24, BUN 18, and creatinine 1.68. Stool occult blood heme-negative, that was done on 08/21/2019. IMPRESSION: Coffee-grounds emesis, likely due to underlying gastritis. I do not suspect any active GI bleeding. PLAN: Continue PPI IV twice daily for GI prophylaxis. Rest of the care as per primary team. We will continue to monitor him for any gross GI bleeding. Rahat Crockre MD SA/JUANCHO /[id number]
[2019-09-02] MEDS: DEXTROSE 5% 1,000 ML IV SCH ×3 (04:15→14:00)
[2019-09-02] MEDS: METOCLOPRAMIDE HCL 10 MG/2ML VIAL IV SCH ×4 (04:45→21:25)
[2019-09-02] MEDS: INSULIN LISPRO 100 UNIT/1 ML 3ML VIAL SQ SCH ×4 (07:30→21:00)
[2019-09-02] MEDS ORDERED: MINERAL OIL 132 ML BTL PR PRN (08:15)
[2019-09-02] MEDS: BALSAM PERU/CASTOR OIL 60 GM OINT...G. TP SCH (08:32)
[2019-09-02] MEDS: NYSTATIN 15 GM POWDER UD BTL TOP SCH ×2 (08:32→15:35)
[2019-09-02] MEDS: ASPIRIN 81 MG CHEW TAB PO SCH (08:32)
[2019-09-02] MEDS: SENNOSIDES 8.6 MG TAB PO SCH ×2 (08:32→16:05)
[2019-09-02] MEDS: SODIUM HYPOCHLORITE 0.25% 480 ML SOLN IR SCH (08:32)
[2019-09-02] MEDS: PANTOPRAZOLE 40 MG 10ML VIAL IV SCH ×2 (08:32→16:28)
[2019-09-02] MEDS: METRONIDAZOLE 500MG/NS 100ML 100 ML IV SCH ×2 (10:00→17:24)
--- NOTE | 2019-09-02 10:45 | NUR ---
report given to imcu rn and transferred via bed. family at bedside. tolerates well.
[2019-09-02] MEDS: MORPHINE SULFATE INJ 4 MG/ML INJ 1ML IV PRN (14:36)
--- NOTE | 2019-09-02 15:25 | NUR ---
WOUND CARE CONSULT FOR NEGATIVE PRESSURE DRESSING CHANGE TO LEFT THIGH POST SURGICAL ABSCESS WOUND BED GLANDULAR DRAINING MODERATE AMOUNTS SEROSANGUINEOUS DRAINAGE NO ODOR NOTED MEASUREMENTS 35CM X 23CM X 3.5 CM JAZZY SKIN INTACT AND BLANCHABLE PATIENT PREMEDICATED NO COMPLAINTS OF PAIN OR DISCOMFORT DURING OR POST DRESSING APPLICATION WHITE FOAM USED DUE TO HX OF HYPERGRANULATION INTO THE BLACK FOAM NEXT PLANNED DRESSING CHANGE Thursday Addendum: 09/02/19 at 1531 by Adilson Art RN Amended: Links added.
[2019-09-02] MEDS: CEFTRIAXONE SOD 1 GM/NS 50 ML 50 ML IV SCH (16:08)
--- NOTE | 2019-09-02 19:30 | NUR ---
patient received awake, alert, lying quietly in bed. vss. no c/o pain noted. ivf continue to infuse without difficulty. wound vac/dressing to left upper thigh remains c,d,i. pm assessment complete. noted at the bedside. patient/ instructed to call for assistance when needed
[2019-09-02] MEDS: INSULIN GLARGINE 100 UNITS/ML VIAL SQ SCH (21:00)
--- NOTE | 2019-09-02 21:17 | Progress Note ---
DATE: 09/02/2019 GI Progress Report SUBJECTIVE: The patient was successfully transferred from ICU to medical floor today. He is tolerating oral diet. Appetite has decreased. No more having any episode of vomiting. Has had a bowel movement. Stool was noted light brown. REVIEW OF SYSTEMS: GENERAL: Admits to some weakness and fatigue. No fever or chills. CVS: No chest pain or palpitation. RESPIRATORY: No cough or expectoration. MEDICATIONS: Reviewed as per MAR. PHYSICAL EXAMINATION: VITAL SIGNS: Temperature 98.4, pulse 86, respiration 20, blood pressure 149/58, and oxygen saturation 100% on 2 L of nasal cannula. GENERAL: Obese body habitus, not in any acute distress. HEENT: Oral mucosa is moist. Anicteric sclerae. ABDOMEN: Obese, soft, nondistended, and nontender. No palpable mass or hernia. Positive bowel sound. LABORATORY DATA: Hemoglobin remained stable from 8.1 to 8.4. No blood was drawn today. IMPRESSION: Coffee-ground emesis resolved, likely due to underlying gastritis. PLAN: Continue Protonix IV twice daily. Monitor him for any gross GI bleeding. Rest of the care as per primary team. Rahat Crocker MD SA/JUANCHO /[id number]
--- NOTE | 2019-09-02 22:00 | NUR ---
patient attempted to get oob. monitor, 02 and wound vac dressing partially off. patient repositioned in bed for comfort. patient instructed to call for assistance when needed. patient verbalizes understanding of this. remains at the bedside.
--- NOTE | 2019-09-02 23:00 | NUR ---
wound vac dressing reinforced. wound vac/dressing dry and intact with good suction.
[2019-09-03] VITALS (8 sets, daily range): BP systolic 137–177; BP diastolic 58–73
--- NOTE | 2019-09-03 | NUR ---
garcia catheter difficult to irrigate. urine cloudy with cloudy sediment at insertion site. garcia catheter changed at this time. 16 moldovan garcia placed with cloudy yellow urine.
[2019-09-03] MEDS: ALBUTEROL/IPRATROPIUM 3 ML NEB NEB SCH ×4 (01:00→19:45)
[2019-09-03] MEDS: METRONIDAZOLE 500MG/NS 100ML 100 ML IV SCH ×3 (02:00→17:02)
--- NOTE | 2019-09-03 02:00 | NUR ---
Patient appears to be resting quietly. no c/o pain noted. remains at the bedside. ivf continue to infuse without difficulty.
[2019-09-03] MEDS: METOCLOPRAMIDE HCL 10 MG/2ML VIAL IV SCH ×4 (04:00→20:57)
[2019-09-03] MEDS: INSULIN LISPRO 100 UNIT/1 ML 3ML VIAL SQ SCH ×4 (07:30→20:00)
[2019-09-03] MEDS: SODIUM HYPOCHLORITE 0.25% 480 ML SOLN IR SCH (07:34)
[2019-09-03] MEDS: SENNOSIDES 8.6 MG TAB PO SCH ×2 (09:00→16:50)
[2019-09-03] MEDS: NYSTATIN 15 GM POWDER UD BTL TOP SCH ×2 (09:12→16:53)
[2019-09-03] MEDS: BALSAM PERU/CASTOR OIL 60 GM OINT...G. TP SCH (09:12)
[2019-09-03] MEDS: PANTOPRAZOLE 40 MG 10ML VIAL IV SCH ×2 (09:15→16:53)
[2019-09-03] MEDS: ASPIRIN 81 MG CHEW TAB PO SCH (09:15)
[2019-09-03] MEDS: DEXTROSE 5% 1,000 ML IV SCH ×2 (09:20→19:50)
[2019-09-03] MEDS: CEFTRIAXONE SOD 1 GM/NS 50 ML 50 ML IV SCH (16:53)
[2019-09-03] MEDS: INSULIN GLARGINE 100 UNITS/ML VIAL SQ SCH (21:27)
[2019-09-04] VITALS (12 sets, daily range): BP systolic 130–157; BP diastolic 41–60
[2019-09-04] MEDS: ALBUTEROL/IPRATROPIUM 3 ML NEB NEB SCH ×4 (00:40→20:00)
[2019-09-04] MEDS: METRONIDAZOLE 500MG/NS 100ML 100 ML IV SCH ×3 (02:05→17:10)
[2019-09-04] MEDS: DEXTROSE 5% 1,000 ML IV SCH ×3 (04:17→17:20)
[2019-09-04] MEDS: METOCLOPRAMIDE HCL 10 MG/2ML VIAL IV SCH ×4 (04:17→21:09)
[2019-09-04] MEDS: SODIUM HYPOCHLORITE 0.25% 480 ML SOLN IR SCH (07:04)
[2019-09-04] MEDS: SENNOSIDES 8.6 MG TAB PO SCH ×2 (07:05→17:00)
[2019-09-04] MEDS: INSULIN LISPRO 100 UNIT/1 ML 3ML VIAL SQ SCH ×4 (07:30→20:00)
[2019-09-04] MEDS: PANTOPRAZOLE 40 MG 10ML VIAL IV SCH ×2 (09:17→17:10)
[2019-09-04] MEDS: NYSTATIN 15 GM POWDER UD BTL TOP SCH ×2 (09:18→17:03)
[2019-09-04] MEDS: ASPIRIN 81 MG CHEW TAB PO SCH (09:18)
[2019-09-04] MEDS: BALSAM PERU/CASTOR OIL 60 GM OINT...G. TP SCH (09:18)
--- NOTE | 2019-09-04 13:49 | NUR ---
patient ambulated to bathroom with no difficulty (with walker). Encouraged patient to ambulate in li today. pt refused. He ambulated to door of room then to chair with walker and oxygen. pt sob with ambulation. he became agitated when asked to walk into the li. at bedside.
[2019-09-04] MEDS: CEFTRIAXONE SOD 1 GM/NS 50 ML 50 ML IV SCH (17:10)
--- NOTE | 2019-09-04 19:05 | NUR ---
Walking rounds done and report received. Patient without any complaints voiced. Call rangel within reach. He was instructed to call for assistance as needed and verbalized understanding.
[2019-09-04] MEDS: INSULIN GLARGINE 100 UNITS/ML VIAL SQ SCH (21:10)
[2019-09-05] VITALS (7 sets, daily range): BP systolic 137–164; BP diastolic 48–66
[2019-09-05] MEDS: ALBUTEROL/IPRATROPIUM 3 ML NEB NEB SCH ×4 (01:30→20:20)
[2019-09-05] MEDS: METRONIDAZOLE 500MG/NS 100ML 100 ML IV SCH ×4 (02:24→20:12)
[2019-09-05] MEDS: METOCLOPRAMIDE HCL 10 MG/2ML VIAL IV SCH ×4 (03:40→22:37)
[2019-09-05 06:14] LABS: BASOPHILS # (AUTO) 0.1 (0.0-0.1); BASOPHILS % 0.9 % (0.0-1.0); EOSINOPHILS # (AUTO) 1.2 (0.0-0.4); EOSINOPHILS % 12.7 % (0.0-6.0); HEMATOCRIT 25.4 % (38.2-49.6); HEMOGLOBIN 8.3 g/dL (14.0-18.0); LYMPHOCYTES # (AUTO) 1.6 (1.0-3.2); LYMPHOCYTES % 17.5 % (18.0-39.1); MEAN CORPUSCULAR HEMOGLOBIN 30.4 pg (28-32); MEAN CORPUSCULAR HGB CONC 32.7 g/dL (31-35); MONOCYTES # (AUTO) 1.4 (0.2-0.8); MONOCYTES % 14.8 % (4.4-11.3); NEUTROPHILS % 53.2 % (38.7-80.0); PLATELET COUNT 218 x10e3/uL (140-360); RED BLOOD COUNT 2.73 x10e6/uL (4.3-5.7); RED CELL DISTRIBUTION WIDTH 15.5 % (11.7-14.4)
[2019-09-05] MEDS: INSULIN LISPRO 100 UNIT/1 ML 3ML VIAL SQ SCH ×4 (07:30→20:57)
[2019-09-05 07:34] LABS: ALBUMIN 1.3 g/dL (3.5-5.0); ALBUMIN/GLOBULIN RATIO 0.3 (0.8-2.0); ALKALINE PHOSPHATASE 59 IU/L (40-150); ANION GAP 10.9 mmol/L (8-16); BLOOD UREA NITROGEN 9 mg/dL (7-26); BUN/CREATININE RATIO 5 (6-25); CALCIUM 8.2 mg/dL (8.4-10.2); CARBON DIOXIDE 23 mmol/L (22-29); CHLORIDE 105 mmol/L (98-107); CREATININE, SERUM 1.83 mg/dL (0.72-1.25); EST GLOMERULAR FILTRATION RATE 43 ML/MIN (60-); GLUCOSE 85 mg/dL (74-118); SODIUM 137 mmol/L (136-145)
[2019-09-05 07:36] LABS: ALANINE AMINOTRANSFERASE < 6 IU/L (0-55)
[2019-09-05 07:39] LABS: POTASSIUM 1.9 mmol/L (3.5-5.1)
[2019-09-05] MEDS ORDERED: POTASSIUM CHLORIDE 20MEQ/100ML 100 ML ONE (07:58)
[2019-09-05] MEDS ORDERED: POTASSIUM CHLORIDE 20MEQ/100ML 100 ML IV ONE ×4 (08:00→15:30)
[2019-09-05 08:30] LABS: FERRITIN 587.26 ng/mL (21.81-274.66)
[2019-09-05] MEDS: SODIUM HYPOCHLORITE 0.25% 480 ML SOLN IR SCH (09:00)
[2019-09-05] MEDS ORDERED: MAGNESIUM SULFATE 2GM/50ML 50 ML IV ONE (10:00)
[2019-09-05 11:10] LABS: ANION GAP 12.3 mmol/L (8-16); CALCIUM 8.3 mg/dL (8.4-10.2); CREATININE, SERUM 1.84 mg/dL (0.72-1.25)
[2019-09-05 11:16] LABS: POTASSIUM 2.3 mmol/L (3.5-5.1)
[2019-09-05] MEDS: PANTOPRAZOLE 40 MG 10ML VIAL IV SCH ×2 (11:34→17:21)
[2019-09-05] MEDS: ASPIRIN 81 MG CHEW TAB PO SCH (11:34)
[2019-09-05] MEDS: BALSAM PERU/CASTOR OIL 60 GM OINT...G. TP SCH (11:34)
[2019-09-05] MEDS: NYSTATIN 15 GM POWDER UD BTL TOP SCH ×2 (11:34→17:35)
[2019-09-05] MEDS: SENNOSIDES 8.6 MG TAB PO SCH ×3 (11:34→17:21)
[2019-09-05] MEDS ORDERED: HYDROCODONE/APAP 5MG-325MG TAB PO PRN (12:30)
--- NOTE | 2019-09-05 14:12 | NUR ---
Nutrition Intervention Note RD Recommendation(s) for Physician: -Liberalize diet to No Added Salt, texture per speech -Continue Glucerna Shake TID -Recommend Homero 1 packet BID to promote wound healing -Check Phos with next lab draw Plan of Care: RD following, monitoring for tolerance and adequacy. Diet and ONS rec's. Nutrition reason for involvement: Follow up RD Assessment 09/05: Pt seen for follow up. Continues on mechanical soft diet per [employer] D[employer] MECH[employer]IC. Pt with fluctuating intake 2/2 diet restriction and preferences, will eat foods that brings in. Improved diet tolerance and overall improvement per discussion with [employer] MECH[employer]IC. K replaced today, labs re-drawn- recommend liberalizing diet. Will monitor and continue to follow. 09/01: Pt seen today for follow up, [employer]CH[employer]IC at bedside providing therapy- reports swallowing has improved significantly. Pt pulled DHT on 08/30, TF discontinued. Po intake of diet and supplement remains poor 2/2 to GI tolerance- currently on Reglan. Pt NPO for several days previously, unable to eat more than 20% of meals currently. Pt discussed during am rounds. Wound care following. Will monitor and continue to follow. 08/29: Follow up: Pt was seen resting in the ICU, DHT in place, no pressor support and is not on ventilation at this time. Per nurse, the pt was having some N/V so the MD told her to keep TFs at 20 ml/hr. Pt is working with speech today per nurse and MBS is set for tmrw. Pt is off of IVF and is getting his potassium replaced. LTACH d/c per progress note is a possibilty. Weight change has been noted- pt was 366 lbs on 08/19, now 352 lbs. This could be related to fluid-pt is on diuretics, no edema noted per progress note. Wound vac has been applied per progress note on 08/27. Will continue to monitor. 08/26: Discussed pt in rounds, per nurse plan is for DHT placement again today, no plans for TPN. Recommendations are as above. No pressors, propofol or ventilation at this present time. Per IM note- pt will remain on D5W ,replace potassium and await feeding tube, Na is trending down. If pt fails swallow eval from [employer], recommend peg placement if appropriate. Will continue to monitor. 08/25: Pt seen for f/u, TF ordered however start pending 2/2 pt pulled NGT overnight. EN remains most appropriate for pt, discussed with team during am rounds. No discussion of PEG/Gtube placement as of yet. No TPN ordered currently, pt on D5W IVF and lytes replaced. Current rec's remain appropriate. Plan for discharge to LTAC ongoing. Will monitor and continue to follow. 08/24: Pt seen for f/u, remains NPO x day 6. Pt discussed during am rounds, plans to start TPN this evening- no barriers to utilizing GI tract. Pt pulled NGT previously, per RN doesn't want another NGT placed. Discussed EN with pt and , they are amenable to proceeding with EN and understand tube would have to be replaced. RD rec's discussed in rounds and with RN. [employer]IC following for dysphagia. MD paged, awaiting return call. 08/19: Follow up: Pt has been intubated and is sedated on fentanyl, no propofol. Per nurse pt is on 12 mcg of levo currently but is trying to decrease if medically feasible. Provided EN recommendations above if MD would like to start tube feeds. Discussed pt in rounds: feeding the pt is not the plan currently, they want to try to extubate the pt tmrw. Per progress note- chest xray is showing some fluid overload and there is no need for emergent dialysis. Speech was consulted, MBS is pending after extubation. Pt is meeting 88% of his recommended energy needs and 111% of his recommended protein needs with TF recommendations above. Will continue to monitor. 08/17: Follow up: Discussed pt in rounds. Nurse reports the pt is not improving and per progress note pt appears sicker. Pt is status post debridement of the left thigh, was on levophed but per nurse is off now. Pt was observed in the ICU resting with nasal cannula in place, daughter at bedside. Per nurse the pt developed chewing/swallowing issues this morning and has not eaten much lately. Pt has fluid overload, was started on lasix and IVF has been d/c. Per chest x-ray yesterday, the pt had come congestion. Per MD note, pt does not need dialysis yet, but needs to be monitored. Will continue to monitor. (08/13/2019) Chart reviewed. Labs and meds reviewed. Initial encounter with patient. Pt with C/O biting/chewing difficulty related to poor fitting dentures as evidenced by pt having difficulty eating regular textures. Offered pt a texture modification and he refused, but his daughter requested a texture modification. Pt denies nausea, vomiting or diarrhea. Pt states that he's not a big eater. No significant wt changes. Pt can feed himself, but his daughter helps to feed the pt. Principal Problems/Diagnoses: CAP PMH: diabetes, morbid obesity, progressive dyspnea GI: LBM: 09/04 Skin: left thigh wound IVF: ---- Labs: 09/05: BMP WNL 09/01: K 3.3, POC Gluc 114-174 08/29: K 3.4, Cl 112, Creat 1.60, Gluc 127, POC GM 125, Ca 8.2 08/26: Na 149, K 3.2, CO2 114, Gluc 137, POC GM 129, Ca 8.2 08/25: Na 150, K 3.1, Cl 116, CO2 25, BUN 31, Cr 1.06, Gluc 129, POC Gluc 111-137 08/24: Na 151, K 3.2, Cl 115, CO2 29, BUN 38, Cr 1.03, Gluc 148 08/19: POC GM 207 08/17: K 3.1, Cl 108, CO2 19, BUN 61, Creat 1.56, Gluc 145, Ca 7.5 Meds: reglan, lantus, protonix, zofran, geodon, senokot, humalog, Mg IVPB, KCl IVPB Ht: 72 in Wt: 352 lbs BMI: 47.7 kg/m^2 IBW: 178 lbs Malnutrition Evaluation (08/17) The patient does not meet criteria for a specified degree of malnutrition at this time. Will re-evaluate at follow-up as appropriate. Supporting Evidence: Fluid accumulation: trace edema Nutrition Prescription (Diet Order): 1800 ADA, Renal. Glucerna shakes 4 x per day. Estimated Nutritional Needs: Calories: 0928-3680 (22-25 kcal/day) Weight used : IBW: 80.9 kg Protein : 810-121 gram/protein/day (1-1.5) Weight used: IBW: 80.9 kg Diet Adequacy: Not meeting calorie needs, Not meeting protein needs Diet Education Needs Assessment: Diet education indicated, but patient not appropriate for education at this time. Nutrition Care Level: low Diet tolerance: tolerating po Nutrition Diagnosis: Inadequate energy intake related to medical condition as evidenced by nurses reports of poor intake and chewing/swallowing difficulty. Goal: Patient will meet 75-100% of estimated needs by follow up Progress: progressing Interventions: Carb, mineral, altered texture-modified diet, liquid supplements, Prescription medications, Collaboration with other providers Monitoring/Evaluation: Total energy intake, Total protein intake, supplements, Prescription medication, Modified diet Signed: Alice Kaba RD, LD, CNSC
--- NOTE | 2019-09-05 14:50 | NUR ---
PT APPROVED TO GO TO [facility] TODAY MOT COMPLETED AND PLACED IN PACKET AT NURSES STATION NURSE TANNER GIVEN NAME AND NUMBER TO CALL REPORT TO DC ORDERS REC'D ACCEPTING PHYSICIAN DR GONZALES ROOM 322
--- NOTE | 2019-09-05 15:39 | NUR ---
WOUND CARE CONSULT FOR NEGATIVE PRESSURE DRESSING CHANGE FOR LEFT THIGH FULL THICKNESS SURGICAL WOUND WOUND MEASURES 30CM X 20CM X 1.8 CM WOUND BASE BEEFY RED AND VERY GLANDULAR MODERATE SEROSANGUINEOUS DRAINAGE IN CANISTER REPORTED TO FILLING A CANISTER EVERY 2 DAYS NO FOUL SMELL NOTED AND JAZZY SKIN AREA INTACT AND BLANCHABLE PATIENT HAD NO COMPLAINT OF PAIN DURING CHANGE OR POST CHANGE CONTINUED USE OF WHITE FOAM RELATED TO HYPERGRANULATION INTO BLACK FOAM NEXT DRESSING CHANGE SCHEDULED FOR Thursday09-07-19 Addendum: 09/05/19 at 1548 by Adilson Art RN Amended: Links added.
[2019-09-05] MEDS: CEFTRIAXONE SOD 1 GM/NS 50 ML 50 ML IV SCH (17:21)
--- NOTE | 2019-09-05 19:19 | NUR ---
reports received from Daja berrios, patient is supposed to be transferred to [facility] if the potassium level is normal after couple hours of giving potassium replacement;otherwise call dr Rea for further orders. Family is aware.
[2019-09-05] MEDS: INSULIN GLARGINE 100 UNITS/ML VIAL SQ SCH (21:00)
--- NOTE | 2019-09-05 21:17 | NUR ---
sent the blood sample to lab, for potassium level.
[2019-09-05] MEDS: DEXTROSE 5% 1,000 ML IV SCH (21:37)
[2019-09-05] MEDS ORDERED: POTASSIUM CHLORIDE 20 MEQ TAB CR PO STA (22:10)
[2019-09-05] MEDS ORDERED: POTASSIUM CHLORIDE 20 MEQ TAB CR PO ONE (22:15)
--- NOTE | 2019-09-05 22:21 | NUR ---
lab result came back potassium level is 2.1; Dr Fernandez notified and gave orders. also dr Aleman notified and aware that patient will not be discharge tonight. spoke to Mona [place] that patient is not going to be transferred tonight.
[2019-09-05] MEDS ORDERED: POTASSIUM CHLORIDE 10MEQ/100ML 300 ML IV ONE (22:30)
[2019-09-06 00:15] VITALS: BP 130/50
[2019-09-06] MEDS: ALBUTEROL/IPRATROPIUM 3 ML NEB NEB SCH ×3 (01:30→13:00)
[2019-09-06] MEDS ORDERED: POTASSIUM CHLORIDE 20 MEQ TAB CR PO SCH (02:30)
[2019-09-06] MEDS: METOCLOPRAMIDE HCL 10 MG/2ML VIAL IV SCH ×2 (04:00→11:01)
[2019-09-06] MEDS: METRONIDAZOLE 500MG/NS 100ML 100 ML IV SCH ×3 (04:00→12:36)
[2019-09-06 04:12] VITALS: BP 162/54
[2019-09-06] MEDS: INSULIN LISPRO 100 UNIT/1 ML 3ML VIAL SQ SCH ×2 (07:30→11:30)
[2019-09-06 07:44] LABS: ANION GAP 12.5 mmol/L (8-16); CALCIUM 8.4 mg/dL (8.4-10.2); CREATININE, SERUM 1.83 mg/dL (0.72-1.25); MAGNESIUM 1.3 MG/DL (1.3-2.1)
[2019-09-06 07:46] LABS: POTASSIUM 2.5 mmol/L (3.5-5.1)
[2019-09-06 08:00] VITALS: BP 164/71
[2019-09-06] MEDS ORDERED: POTASSIUM CHLORIDE 20MEQ/100ML 100 ML IV ONE ×3 (08:15→12:30)
[2019-09-06] MEDS: SENNOSIDES 8.6 MG TAB PO SCH (09:00)
[2019-09-06] MEDS: SODIUM HYPOCHLORITE 0.25% 480 ML SOLN IR SCH (09:00)
[2019-09-06] MEDS ORDERED: MAGNESIUM OXIDE 400 MG TAB PO SCH (09:00)
[2019-09-06] MEDS ORDERED: MAGNESIUM SULFATE 2GM/50ML IV ONE (09:00)
[2019-09-06] MEDS: ASPIRIN 81 MG CHEW TAB PO SCH (09:21)
[2019-09-06] MEDS ORDERED: POTASSIUM PHOSPHATE 20 MM in SODIUM CHLORIDE 0.9% 250ML 250 ML IV ONE (09:30)
[2019-09-06] MEDS ORDERED: MAGNESIUM SULFATE 2GM/50ML 50 ML IV ONE ×2 (09:30→13:45)
[2019-09-06] MEDS: BALSAM PERU/CASTOR OIL 60 GM OINT...G. TP SCH (09:43)
--- NOTE | 2019-09-06 11:10 | NUR ---
PT NOT TRANSFERED TO [facility] YESTERDAY DUE TO LOW POTASSIUM PER Stacie.Randall HART SHE STATES DR GOVEA HELD THE DISCHARGE DR FERNÁNDEZ ROUNDED THIS AM AND WROTE ORDERS FOR DISCHARGE I CALLED TO NOTIFY DR GOVEA THAT PT IS DISCHARGED TO [facility] ORDERS FROM DR GOVEA CLEARED FOR DISCHARGE TO [facility]
[2019-09-06] MEDS: NYSTATIN 15 GM POWDER UD BTL TOP SCH (11:29)
[2019-09-06 12:00] VITALS: BP 139/51
[2019-09-06 16:00] VITALS: BP 132/58
--- NOTE | 2019-09-06 16:00 | NUR ---
Patient wound vac dressing removed applied wet to dry dressing to transport to [facility].
--- NOTE | 2019-09-06 16:40 | NUR ---
Patient transferred to [facility], via EMS, patient placed in stretcher, he alert and oriented, verbalizing needs, Central line left in place for continuity of care.
[2019-09-07] MEDS ORDERED: PANTOPRAZOLE 40 MG 10ML VIAL IV SCH (06:00)
== END 2019-09-06 16:37 | DRG 853 ==
LOC: ER 03:47 → ERHOLD 06:11 → ICU 12:06 → MED/SURG2 08-13 06:18 → IMCU 08-15 12:37 → ICU 08-15 17:12 → IMCU 09-02 12:56
PROVIDERS: ADMIT Internal Medicine; ATTEND Internal Medicine
PROC: 02HV33Z Insertion of Infusion Device into Superior Vena Cava, Percutaneous Approach (ICD-10-PCS; 2019-08-15)
PROC: B548ZZA Ultrasonography of Superior Vena Cava, Guidance (ICD-10-PCS; 2019-08-15)
PROC: 0JBM0ZZ Excision of Left Upper Leg Subcutaneous Tissue and Fascia, Open Approach (ICD-10-PCS; principal; 2019-08-15 11:30)
PROC: 5A1945Z Respiratory Ventilation, 24-96 Consecutive Hours (ICD-10-PCS; 2019-08-18)
PROC: 0JBM0ZZ Excision of Left Upper Leg Subcutaneous Tissue and Fascia, Open Approach (ICD-10-PCS; 2019-08-18)
PROC: 0CJ Mouth and Throat, Inspection (ICD-10-PCS; 2019-08-18)
PROC: 30233N1 Transfusion of Nonautologous Red Blood Cells into Peripheral Vein, Percutaneous Approach (ICD-10-PCS; 2019-08-19)
PROC: 3E0436Z Introduction of Nutritional Substance into Central Vein, Percutaneous Approach (ICD-10-PCS; 2019-08-24)
DX: A41.51 Sepsis due to Escherichia coli [E. coli] (principal); R65.21 Severe sepsis with septic shock; J18.9 Pneumonia, unspecified organism; N17.0 Acute kidney failure with tubular necrosis; M72.6 Necrotizing fasciitis; J95.821 Acute postprocedural respiratory failure; Z68.43 Body mass index [BMI] 50.0-59.9, adult; J44.0 Chronic obstructive pulmonary disease with (acute) lower respiratory infection; J44.1 Chronic obstructive pulmonary disease with (acute) exacerbation; L03.116 Cellulitis of left lower limb; I13.0 Hypertensive heart and chronic kidney disease with heart failure and stage 1 through stage 4 chronic kidney disease, or unspecified chronic kidney disease; I50.32 Chronic diastolic (congestive) heart failure; L02.416 Cutaneous abscess of left lower limb; Z16.12 Extended spectrum beta lactamase (ESBL) resistance; E87.0 Hyperosmolality and hypernatremia; A41.9 Sepsis, unspecified organism; E66.01 Morbid (severe) obesity due to excess calories; J20.9 Acute bronchitis, unspecified; E11.22 Type 2 diabetes mellitus with diabetic chronic kidney disease; E78.5 Hyperlipidemia, unspecified; K21.9 Gastro-esophageal reflux disease without esophagitis; R53.81 Other malaise; Z99.81 Dependence on supplemental oxygen; Z87.891 Personal history of nicotine dependence; Z88.5 Allergy status to narcotic agent; Z88.0 Allergy status to penicillin; K80.80 Other cholelithiasis without obstruction; N18.3 Chronic kidney disease, stage 3 (moderate); E11.21 Type 2 diabetes mellitus with diabetic nephropathy; K11.20 Sialoadenitis, unspecified; K29.70 Gastritis, unspecified, without bleeding; E87.6 Hypokalemia; D64.9 Anemia, unspecified; R41.82 Altered mental status, unspecified; T36.1X5A Adverse effect of cephalosporins and other beta-lactam antibiotics, initial encounter; Y92.230 Patient room in hospital as the place of occurrence of the external cause; B96.89 Other specified bacterial agents as the cause of diseases classified elsewhere; D47.3 Essential (hemorrhagic) thrombocythemia; D50.0 Iron deficiency anemia secondary to blood loss (chronic); B96.20 Unspecified Escherichia coli [E. coli] as the cause of diseases classified elsewhere; Z79.4 Long term (current) use of insulin; Z79.82 Long term (current) use of aspirin
CPT/HCPCS: 36415; 36600; 70450; 70486; 70490; 71045; 71250; 74018; 74150; 74176; 74230; 74470; 76705; 76770; 78227; 80048; 80053; 80202; 81001; 81220; 82150; 82270; 82550; 82553; 82570; 82607; 82728; 82746; 82805; 82948; 83036; 83540; 83605; 83690; 83735; 83880; 83970; 84100; 84132; 84156; 84165; 84166; 84466; 84484; 84550; 85025; 85610; 85651; 85730; 86140; 86850; 86900; 86920; 87040; 87070; 87071; 87075; 87086; 87186; 87205; 87400; 88184; 88304; 93005; 93306; 93971; 94002; 94003; 94640; 96360; 96365; 96366; 96372; 97139; 97605; 97606; 99285; A9537; C1751; J0456; J0692; J0696; J1644; J1756; J1815; J1940; J2001; J2270; J2370; J2405; J2765; J3010; J3370; J3475; J3480; J3486; J7030; J7042; J7050; J7070; P9016

== ENCOUNTER → 2020-05-04 | Day surgery (SDC) | payer MEDICARE, OTHER ==
[2020-05-03 16:07] LABS: BASOPHILS # (AUTO) 0.1 (0.0-0.1); BASOPHILS % 0.5 % (0.0-1.0); EOSINOPHILS # (AUTO) 0.3 (0.0-0.4); EOSINOPHILS % 2.3 % (0.0-6.0); HEMATOCRIT 37.9 % (38.2-49.6); HEMOGLOBIN 11.9 g/dL (14.0-18.0); LYMPHOCYTES # (AUTO) 1.8 (1.0-3.2); LYMPHOCYTES % 14.2 % (18.0-39.1); MEAN CORPUSCULAR HEMOGLOBIN 27.9 pg (28-32); MEAN CORPUSCULAR HGB CONC 31.4 g/dL (31-35); MEAN CORPUSCULAR VOLUME 88.8 fL (81-99); MONOCYTES # (AUTO) 1.2 (0.2-0.8); NEUTROPHILS # (AUTO) 9.1 (2.1-6.9); NEUTROPHILS % 72.6 % (38.7-80.0); PLATELET COUNT 323 x10e3/uL (140-360); RED BLOOD COUNT 4.27 x10e6/uL (4.3-5.7); RED CELL DISTRIBUTION WIDTH 17.1 % (11.7-14.4)
--- NOTE | 2020-05-03 16:14 | Diagnostic Imaging Report ---
EXAMINATION: CHEST 2 VIEWS INDICATION: Pre-operative COMPARISON: Chest radiograph 11/14/2019 FINDINGS: LINES/TUBES:None LUNGS:The lungs are well-inflated. No focal consolidation or pulmonary edema. PLEURA:No pleural effusion or pneumothorax. MEDIASTINUM:The cardiomediastinal silhouette appears normal in size and shape. Atherosclerotic calcifications of the thoracic aorta. BONES/SOFT TISSUES:No acute osseous injury. ABDOMEN:No free air under the diaphragm. IMPRESSION: No focal pneumonia or pulmonary edema. Signed by: Paresh Willson MD on 05/03/2020 4:11 PM
[2020-05-03 16:27] LABS: BLOOD UREA NITROGEN 21 mg/dL (7-26); BUN/CREATININE RATIO 20 (6-25); CALCIUM 8.6 mg/dL (8.4-10.2); CARBON DIOXIDE 22 mmol/L (22-29); CHLORIDE 103 mmol/L (98-107); CREATININE, SERUM 1.05 mg/dL (0.72-1.25); EST GLOMERULAR FILTRATION RATE > 60 ML/MIN (60-); GLUCOSE 112 mg/dL (74-118); SODIUM 138 mmol/L (136-145)
[~2020-05-04] MED LIST changes: +AMLODIPINE BESY10 MG PO; +ASPIR 8181 MG PO; +CALCIUM600 MG PO; +CIPRO500 MG PO; +FAMOTIDINE20 MG PO; +FENTANYL CITRATE/PF 100MCG/2 ML INJ ONE; +FUROSEMIDE40 MG PO; +Iron PO; +LIDOCAINE HCL 1% LOCAL INJ 20 ML VIAL ONE; +MAGNESIUM OXID400 MG PO; +MIDAZOLAM HCL 2 MG/2 ML VIAL ONE; +SENNA-S LAXATI1 EACH PO; +VANCOMYCIN 1GM/NS 250 ML 250 ML ONE; +Vitamin D PO; +tresiba SQ
[2020-05-04 15:50] VITALS: BP 140/58
--- NOTE | 2020-05-04 16:14 | Operative Report ---
DATE OF PROCEDURE: 05/04/2020 SURGEON: Kvng Brandt MD PREOPERATIVE DIAGNOSIS: Complex abscess, right posterior thigh. POSTOPERATIVE DIAGNOSIS: Complex abscess, right posterior thigh. PROCEDURES: Incision and drainage, complex abscess, right posterior thigh. SURVEILLANCE SYSTEMS ANALYST: None. ANESTHESIA: General. INDICATIONS AND FINDINGS: The patient is an 79-year-old male with multiple previous abscess, presenting complaints of pain and swelling in the right posterior thigh. At Surgery, there was a large abscess right posterior thigh containing purulent bloody fluid, which was multiloculated and tracked medially as well as inferiorly approximately 60 mL of purulent fluid was drained. There was no necrotic tissue abscess involved the skin and subcutaneous tissue. TECHNIQUE: After adequate intravenous sedation, the patient in the left side down position, the right posterior thigh was prepped and draped in a sterile fashion with Betadine solution. The skin and subcutaneous tissue were infiltrated with 1% lidocaine without epinephrine. Incision was made over the area of swelling and abscess cavity was entered. Bloody purulent fluid was drained, sample taken for culture and sensitivity. The abscess tracked medially. The incision was extended to provide adequate drainage for multiple loculations, which were broken up. There was sinus tract opening and incision was extended to the sinus tract opening. The abscess cavity was irrigated with saline. Hemostasis was achieved with electrocautery, it was abscess cavity was then packed open with 1-inch iodoform gauze and sterile dressing applied. The patient tolerated the procedure well. Estimated blood loss was 25 mL. There were no complications. All counts were correct. The patient was taken to the recovery room in satisfactory condition. Kvng Brandt MD DWG/MODL /[id number] cc: Raphael Atkinson MD
== END | disposition home or self-care (01) ==
LOC: OR 12:04
PROVIDERS: ATTEND Surgery
DX: L02.415 Cutaneous abscess of right lower limb (principal); Z01.810 Encounter for preprocedural cardiovascular examination; Z01.812 Encounter for preprocedural laboratory examination; Z11.59 Encounter for screening for other viral diseases; Z88.5 Allergy status to narcotic agent; Z88.0 Allergy status to penicillin; Z88.8 Allergy status to other drugs, medicaments and biological substances; E11.9 Type 2 diabetes mellitus without complications; J44.9 Chronic obstructive pulmonary disease, unspecified; I10 Essential (primary) hypertension; K21.9 Gastro-esophageal reflux disease without esophagitis; Z83.3 Family history of diabetes mellitus; Z82.49 Family history of ischemic heart disease and other diseases of the circulatory system; Z79.82 Long term (current) use of aspirin
CPT/HCPCS: 27301; 36415 ×2; 71046; 80048; 82948; 85025; 87071; 87075; 87205; 87635; 93005; J2001; J2250; J3010; J3370

== ENCOUNTER 2020-07-06 17:55 | Inpatient (IN) | payer MEDICARE ==
[~2020-07-06] VITALS: Ht 182.9 cm; Wt 128.4 kg
[~2020-07-06 17:55] MED LIST changes: -FENTANYL CITRATE/PF 100MCG/2 ML INJ ONE; -LIDOCAINE HCL 1% LOCAL INJ 20 ML VIAL ONE; -MIDAZOLAM HCL 2 MG/2 ML VIAL ONE; -VANCOMYCIN 1GM/NS 250 ML 250 ML ONE
[2020-07-06] MEDS ORDERED: MORPHINE SULFATE INJ 4 MG/ML INJ 1ML IV STA ×2 (18:02→18:48)
[2020-07-06] MEDS ORDERED: FUROSEMIDE INJ 10 MG/ML 4 ML VIAL IV ONE (18:15)
[2020-07-06] MEDS ORDERED: HYDRALAZINE HCL 20 MG/ML VIAL IV ONE (18:15)
[2020-07-06] MEDS ORDERED: ASPIRIN 81 MG CHEW TAB PO ONE ×2 (18:15→19:15)
[2020-07-06] MEDS: ONDANSETRON HCL INJ 2MG/ML 2ML 2 MG/ML VIAL IV STA ×2 (18:45→20:12)
[2020-07-06 18:46] LABS: BASOPHILS # (AUTO) 0.1 (0.0-0.1); BASOPHILS % 0.5 % (0.0-1.0); EOSINOPHILS # (AUTO) 0.4 (0.0-0.4); EOSINOPHILS % 3.7 % (0.0-6.0); HEMATOCRIT 36.8 % (38.2-49.6); HEMOGLOBIN 11.3 g/dL (14.0-18.0); LYMPHOCYTES % 19.1 % (18.0-39.1); MEAN CORPUSCULAR HEMOGLOBIN 27.6 pg (28-32); MEAN CORPUSCULAR HGB CONC 30.7 g/dL (31-35); MEAN CORPUSCULAR VOLUME 89.8 fL (81-99); MONOCYTES % 9.4 % (4.4-11.3); NEUTROPHILS % 66.4 % (38.7-80.0); PLATELET COUNT 420 x10e3/uL (140-360); RED CELL DISTRIBUTION WIDTH 14.6 % (11.7-14.4)
[2020-07-06] MEDS ORDERED: PROPOFOL IV EMULSION 10MG/ML 100 ML IV STA (19:05)
[2020-07-06 19:18] LABS: ALBUMIN 2.7 g/dL (3.5-5.0); ALBUMIN/GLOBULIN RATIO 0.5 (0.8-2.0); ANION GAP 14.7 mmol/L (8-16); CALCIUM 9.1 mg/dL (8.4-10.2); CREATININE, SERUM 1.27 mg/dL (0.72-1.25); POTASSIUM 4.7 mmol/L (3.5-5.1)
[2020-07-06 19:25] LABS: CREATINE KINASE MB 9.3 ng/mL (0-5.0)
[2020-07-06] MEDS ORDERED: ENOXAPARIN SODIUM INJ 100 MG/ML SYR SC STA (19:42)
[2020-07-06] MEDS ORDERED: SUCCINYLCHOLINE CHLORIDE 20 MG/ML 10ML VIAL ONE (19:44)
[2020-07-06] MEDS ORDERED: ETOMIDATE 2 MG/ML 10 ML INJ IV ONE (19:44)
[2020-07-06] MEDS ORDERED: HYDRALAZINE HCL 20 MG/ML VIAL IV PRN (20:15)
[2020-07-06] MEDS ORDERED: HEPARIN SOD (PORCINE) 5,000 UNIT/ML VIAL IV ONE ×2 (20:45→23:45)
[2020-07-06] MEDS ORDERED: PROPOFOL IV EMULSION 10MG/ML 100 ML ONE (21:32)
[2020-07-06] MEDS ORDERED: LIDOCAINE HCL 2% 100 MG/5 ML IV ONE (21:33)
[2020-07-06] MEDS ORDERED: LIDOCAINE HCL 1% LOCAL INJ 20 ML VIAL ONE (21:35)
[2020-07-06 21:46] LABS: ABG HCO3 20 mmol/L (22-26); ABG PCO2 34 mmHg (35-45); ABG PH 7.37 (7.35-7.45); ABG PO2 72 mmHg (80-105); ABG TCO2 21
[2020-07-06] MEDS ORDERED: NOREPINEPHRINE 8 MG/D5W 250 ML 250 ML ONE (22:02)
[2020-07-06] MEDS ORDERED: MIDAZOLAM HCL 5MG/ML 2ML VIAL IV STA (22:02)
[2020-07-06] MEDS ORDERED: MIDAZOLAM HCL 2 MG/2 ML VIAL ONE (22:10)
[2020-07-06 22:46] LABS: BILIRUBIN,URINE NEGATIVE (NEGATIVE); CLARITY,URINE CLOUDY (CLEAR); COLOR,URINE YELLOW (YELLOW); KETONES,URINE NEGATIVE (NEGATIVE); LEUKOCYTE ESTERASE ,URINE NEGATIVE (NEGATIVE); NITRITE,URINE NEGATIVE (NEGATIVE); PROTEIN,URINE DIPSTICK >=300 (NEGATIVE); URINE UROBILINOGEN 0.2 mg/dL (0.2 - 1)
[2020-07-06 22:53] LABS: AMORPHOUS SEDIMENT,URINE MANY (FEW); BACTERIA,URINE MODERATE /HPF; EPITHELIAL CELLS,URINE FEW /LPF; RBC,URINE >50 /HPF (0-5)
[2020-07-06 23:35] VITALS: BP 118/57
[2020-07-06] MEDS ORDERED: HEPARIN 25,000 UNIT 1,000 UNIT in DEXTROSE 5% 250ML 250 ML IV SCH (23:45)
[2020-07-07] VITALS (28 sets, daily range): BP systolic 81–172; BP diastolic 43–96
[2020-07-07] MEDS ORDERED: HEPARIN 25,000 UNIT DRIP IV ONE (00:19)
[2020-07-07] MEDS ORDERED: SODIUM CHLORIDE 0.9% 50ML 50 ML ONE (00:24)
[2020-07-07] MEDS ORDERED: IOPAMIDOL 370 MG/ML 200 ML INFUS..BTL INJ ONE (00:24)
[2020-07-07] MEDS ORDERED: PROPOFOL IV EMULSION 10MG/ML 100 ML ONE (00:36)
[2020-07-07] MEDS: HEPARIN 25,000U/0.45% NS 250ML 250 ML IV SCH ×2 (01:36→08:30)
[2020-07-07] MEDS: LEVOFLOXACIN 500MG/D5W 100ML 100 ML IV SCH ×2 (01:55→20:10)
[2020-07-07 03:46] LABS: CREATINE KINASE MB 44.3 ng/mL (0-5.0)
[2020-07-07] MEDS: PROPOFOL IV EMULSION 10MG/ML 100 ML IV SCH (04:39)
[2020-07-07 05:05] LABS: BASOPHILS # (AUTO) 0.1 (0.0-0.1); BASOPHILS % 0.4 % (0.0-1.0); EOSINOPHILS % 0.3 % (0.0-6.0); HEMATOCRIT 31.6 % (38.2-49.6); HEMOGLOBIN 9.7 g/dL (14.0-18.0); LYMPHOCYTES # (AUTO) 1.1 (1.0-3.2); LYMPHOCYTES % 8.7 % (18.0-39.1); MEAN CORPUSCULAR HEMOGLOBIN 27.6 pg (28-32); MEAN CORPUSCULAR HGB CONC 30.7 g/dL (31-35); MEAN CORPUSCULAR VOLUME 89.8 fL (81-99); MONOCYTES # (AUTO) 1.4 (0.2-0.8); MONOCYTES % 11.1 % (4.4-11.3); NEUTROPHILS # (AUTO) 10.1 (2.1-6.9); NEUTROPHILS % 78.7 % (38.7-80.0); PLATELET COUNT 416 x10e3/uL (140-360); RED BLOOD COUNT 3.52 x10e6/uL (4.3-5.7); RED CELL DISTRIBUTION WIDTH 14.6 % (11.7-14.4)
[2020-07-07 05:33] LABS: ALBUMIN 2.2 g/dL (3.5-5.0); ALBUMIN/GLOBULIN RATIO 0.5 (0.8-2.0); ANION GAP 12.6 mmol/L (8-16); CALCIUM 8.5 mg/dL (8.4-10.2); CREATININE, SERUM 1.4 mg/dL (0.72-1.25); POTASSIUM 4.6 mmol/L (3.5-5.1)
[2020-07-07] MEDS ORDERED: NOREPINEPHRINE 8 MG/D5W 250 ML 250 ML ONE (08:11)
[2020-07-07] MEDS: NOREPINEPHRINE INJ 4MG/4ML 8 MG in DEXTROSE 5% 250ML 250 ML IV SCH ×2 (08:18→22:00)
[2020-07-07] MEDS ORDERED: FUROSEMIDE INJ 10 MG/ML 4 ML VIAL IV ONE ×2 (09:30→12:45)
[2020-07-07 09:32] LABS: CREATINE KINASE MB 54.5 ng/mL (0-5.0)
[2020-07-07] MEDS ORDERED: VANCOMYCIN 1GM/NS 250 ML 250 ML IV ONE (10:15)
[2020-07-07] MEDS: ALBUMIN 25% 25GM 100ML 100 ML IV SCH ×2 (10:33→16:29)
[2020-07-07] MEDS ORDERED: DEXTROSE 50% SYRINGE 50 ML IV PRN (11:00)
[2020-07-07] MEDS: CLINDAMYCIN 600MG / 50ML 50 ML IV SCH ×2 (11:11→17:02)
[2020-07-07] MEDS ORDERED: INSULIN LISPRO 100 UNIT/1 ML 3ML VIAL SQ SCH (11:30)
[2020-07-07] MEDS ORDERED: ALBUMIN 25% 25GM 100ML 0.25 GM/ML BTL IV SCH (12:00)
[2020-07-07 12:11] LABS: ABG HCO3 23 mmol/L (22-26); ABG PCO2 36 mmHg (35-45); ABG PH 7.41 (7.35-7.45); ABG PO2 95 mmHg (80-105); ABG TCO2 24
[2020-07-07] MEDS ORDERED: FUROSEMIDE INJ 10 MG/ML 4 ML VIAL ONE (12:44)
[2020-07-07] MEDS ORDERED: DEXMEDETOMIDINE HCL 200 MCG in SODIUM CHLORIDE 0.9% 50ML 48 ML IV PRN (12:45)
[2020-07-07] MEDS ORDERED: DEXMEDETOMIDINE 200MCG/NS 50ML 50 ML IV ONE (12:45)
[2020-07-07] MEDS: DEXMEDETOMIDINE 200MCG/NS 50ML 50 ML IV PRN ×3 (13:00→20:51)
[2020-07-07] MEDS ORDERED: AMIODARONE HCL 150 MG in DEXTROSE 5% 100ML 100 ML IV ONE (14:15)
[2020-07-07] MEDS ORDERED: AMIODARONE HCL 150 MG/100 ML BAG IV ONE (14:15)
[2020-07-07] MEDS ORDERED: AMIODARONE HCL 900 MG in DEXTROSE 5% 500ML 500 ML IV SCH (14:15)
[2020-07-07] MEDS ORDERED: AMIODARONE HCL 900 MG in DEXTROSE 5 % 500ML BOTTLE 500 ML IV ONE (14:15)
[2020-07-07] MEDS ORDERED: CLOPIDOGREL BISULFATE 75 MG TAB PO ONE (16:45)
[2020-07-07 16:52] LABS: ABG HCO3 23 mmol/L (22-26); ABG PCO2 36 mmHg (35-45); ABG PH 7.42 (7.35-7.45); ABG PO2 217 mmHg (80-105); ABG TCO2 24
[2020-07-07] MEDS: METOPROLOL TARTRATE 25 MG TAB PO SCH (17:00)
[2020-07-07] MEDS: INSULIN LISPRO 100 UNIT/1 ML 3ML VIAL SQ SCH (18:18)
[2020-07-07] MEDS: ATORVASTATIN 40 MG TAB PO SCH (20:10)
[2020-07-07] MEDS ORDERED: CLOPIDOGREL BISULFATE 75 MG TAB ONE (20:14)
[2020-07-07] MEDS ORDERED: ATORVASTATIN 20 MG TAB PO SCH (21:00)
[2020-07-08] VITALS (24 sets, daily range): BP systolic 94–113; BP diastolic 32–62
[2020-07-08] MEDS: PROPOFOL IV EMULSION 10MG/ML 100 ML IV SCH (00:30)
[2020-07-08] MEDS: HEPARIN 25,000U/0.45% NS 250ML 250 ML IV SCH (00:32)
[2020-07-08] MEDS: DEXMEDETOMIDINE 200MCG/NS 50ML 50 ML IV PRN ×5 (01:10→19:39)
[2020-07-08] MEDS: CLINDAMYCIN 600MG / 50ML 50 ML IV SCH ×4 (05:32→17:08)
[2020-07-08] MEDS: INSULIN LISPRO 100 UNIT/1 ML 3ML VIAL SQ SCH ×4 (05:47→17:09)
[2020-07-08 06:56] LABS: BASOPHILS % 0.2 % (0.0-1.0); EOSINOPHILS # (AUTO) 0.1 (0.0-0.4); EOSINOPHILS % 0.5 % (0.0-6.0); HEMATOCRIT 27.8 % (38.2-49.6); HEMOGLOBIN 8.7 g/dL (14.0-18.0); LYMPHOCYTES # (AUTO) 1.3 (1.0-3.2); LYMPHOCYTES % 10.3 % (18.0-39.1); MEAN CORPUSCULAR HGB CONC 31.3 g/dL (31-35); MEAN CORPUSCULAR VOLUME 89.4 fL (81-99); MONOCYTES # (AUTO) 1.3 (0.2-0.8); MONOCYTES % 10.3 % (4.4-11.3); NEUTROPHILS % 77.7 % (38.7-80.0); PLATELET COUNT 349 x10e3/uL (140-360); RED BLOOD COUNT 3.11 x10e6/uL (4.3-5.7); RED CELL DISTRIBUTION WIDTH 14.9 % (11.7-14.4)
[2020-07-08 07:08] LABS: CHOL/HDL RATIO 2.8 (3.9-4.7); MAGNESIUM 1.7 MG/DL (1.3-2.1)
[2020-07-08 07:10] LABS: ALBUMIN 2.5 g/dL (3.5-5.0); ALBUMIN/GLOBULIN RATIO 0.6 (0.8-2.0); ANION GAP 13.7 mmol/L (8-16); CALCIUM 8.6 mg/dL (8.4-10.2); CREATININE, SERUM 1.96 mg/dL (0.72-1.25); POTASSIUM 4.7 mmol/L (3.5-5.1)
[2020-07-08 07:30] LABS: THYROID STIMULATING HORMONE 0.531 uIU/mL (0.350-4.940)
[2020-07-08] MEDS: CLOPIDOGREL BISULFATE 75 MG TAB PO SCH (08:42)
[2020-07-08] MEDS: METOPROLOL TARTRATE 25 MG TAB PO SCH ×2 (08:43→16:00)
[2020-07-08] MEDS: LEVOFLOXACIN 250MG/D5W 50ML 50 ML IV SCH (11:28)
[2020-07-08] MEDS: AMIODARONE HCL 200 MG TAB PO SCH (16:00)
[2020-07-08 17:00] LABS: ABG PH 7.43 (7.35-7.45)
[2020-07-08 17:01] LABS: ABG HCO3 21 mmol/L (22-26); ABG PCO2 32 mmHg (35-45); ABG PO2 75 mmHg (80-105); ABG TCO2 22
[2020-07-08] MEDS: ATORVASTATIN 40 MG TAB PO SCH (21:52)
[2020-07-08] MEDS: ACETAMINOPHEN 1000 MG/100 ML IV PRN (23:37)
[2020-07-08] MEDS ORDERED: SODIUM CHLORIDE 0.9% 500ML 500 ML ONE (23:48)
[2020-07-09] VITALS (23 sets, daily range): BP systolic 94–157; BP diastolic 43–73
[2020-07-09] MEDS: INSULIN LISPRO 100 UNIT/1 ML 3ML VIAL SQ SCH ×4 (00:21→18:12)
[2020-07-09] MEDS: CLINDAMYCIN 600MG / 50ML 50 ML IV SCH ×4 (00:21→18:06)
[2020-07-09 05:30] LABS: BASOPHILS # (AUTO) 0.1 (0.0-0.1); BASOPHILS % 0.5 % (0.0-1.0); EOSINOPHILS # (AUTO) 0.2 (0.0-0.4); HEMATOCRIT 26.6 % (38.2-49.6); HEMOGLOBIN 8.3 g/dL (14.0-18.0); LYMPHOCYTES # (AUTO) 1.3 (1.0-3.2); LYMPHOCYTES % 13.8 % (18.0-39.1); MEAN CORPUSCULAR HGB CONC 31.2 g/dL (31-35); MEAN CORPUSCULAR VOLUME 89.9 fL (81-99); MONOCYTES # (AUTO) 0.7 (0.2-0.8); MONOCYTES % 7.5 % (4.4-11.3); NEUTROPHILS # (AUTO) 7.2 (2.1-6.9); NEUTROPHILS % 74.8 % (38.7-80.0); PLATELET COUNT 293 x10e3/uL (140-360); RED BLOOD COUNT 2.96 x10e6/uL (4.3-5.7); RED CELL DISTRIBUTION WIDTH 14.6 % (11.7-14.4)
[2020-07-09] MEDS: HEPARIN 25,000U/0.45% NS 250ML 250 ML IV SCH ×2 (05:58→17:30)
[2020-07-09 06:30] LABS: ANION GAP 16.4 mmol/L (8-16); CALCIUM 8.3 mg/dL (8.4-10.2); CREATININE, SERUM 2.21 mg/dL (0.72-1.25); POTASSIUM 4.4 mmol/L (3.5-5.1)
[2020-07-09] MEDS: AMIODARONE HCL 200 MG TAB PO SCH ×2 (09:04→18:06)
[2020-07-09] MEDS: CLOPIDOGREL BISULFATE 75 MG TAB PO SCH (09:05)
[2020-07-09] MEDS: LEVOFLOXACIN 250MG/D5W 50ML 50 ML IV SCH (09:05)
[2020-07-09] MEDS: METOPROLOL TARTRATE 25 MG TAB PO SCH ×2 (09:05→18:06)
[2020-07-09] MEDS: AZTREONAM 1 GM/NS 50 ML 50 ML IV SCH ×2 (11:07→21:46)
[2020-07-09] MEDS: ACETAMINOPHEN 1000 MG/100 ML IV PRN (15:28)
[2020-07-09] MEDS: FUROSEMIDE INJ 10 MG/ML 4 ML VIAL IV SCH (18:06)
[2020-07-09] MEDS: ATORVASTATIN 40 MG TAB PO SCH (21:46)
[2020-07-10] VITALS (22 sets, daily range): BP systolic 91–158; BP diastolic 48–72
[2020-07-10] MEDS: CLINDAMYCIN 600MG / 50ML 50 ML IV SCH ×5 (00:58→23:33)
[2020-07-10] MEDS: FUROSEMIDE INJ 10 MG/ML 4 ML VIAL IV SCH ×3 (00:58→22:31)
[2020-07-10] MEDS: INSULIN LISPRO 100 UNIT/1 ML 3ML VIAL SQ SCH ×5 (01:00→23:34)
[2020-07-10 04:50] LABS: BASOPHILS % 0.4 % (0.0-1.0); EOSINOPHILS # (AUTO) 0.1 (0.0-0.4); EOSINOPHILS % 0.7 % (0.0-6.0); HEMATOCRIT 28.1 % (38.2-49.6); LYMPHOCYTES # (AUTO) 1.1 (1.0-3.2); LYMPHOCYTES % 13.2 % (18.0-39.1); MEAN CORPUSCULAR HEMOGLOBIN 29.3 pg (28-32); MEAN CORPUSCULAR VOLUME 91.5 fL (81-99); MONOCYTES % 11.9 % (4.4-11.3); NEUTROPHILS # (AUTO) 6.2 (2.1-6.9); NEUTROPHILS % 72.5 % (38.7-80.0); PLATELET COUNT 379 x10e3/uL (140-360); RED BLOOD COUNT 3.07 x10e6/uL (4.3-5.7); RED CELL DISTRIBUTION WIDTH 14.7 % (11.7-14.4)
[2020-07-10 05:25] LABS: ALBUMIN 2.3 g/dL (3.5-5.0); ALBUMIN/GLOBULIN RATIO 0.5 (0.8-2.0); ANION GAP 16.7 mmol/L (8-16); CALCIUM 8.5 mg/dL (8.4-10.2); CREATININE, SERUM 1.73 mg/dL (0.72-1.25); POTASSIUM 3.7 mmol/L (3.5-5.1)
[2020-07-10] MEDS: AMIODARONE HCL 200 MG TAB PO SCH ×2 (09:14→18:02)
[2020-07-10] MEDS: METOPROLOL TARTRATE 25 MG TAB PO SCH ×2 (09:15→18:02)
[2020-07-10] MEDS: CLOPIDOGREL BISULFATE 75 MG TAB PO SCH (09:15)
[2020-07-10] MEDS: AZTREONAM 1 GM/NS 50 ML 50 ML IV SCH ×2 (09:36→22:31)
[2020-07-10] MEDS: HEPARIN 25,000U/0.45% NS 250ML 250 ML IV SCH (13:19)
[2020-07-10] MEDS: ATORVASTATIN 40 MG TAB PO SCH (21:00)
[2020-07-11] VITALS (8 sets, daily range): BP systolic 136–158; BP diastolic 58–77
[2020-07-11] MEDS ORDERED: SODIUM CHLORIDE 0.9% 250ML 250 ML ONE (05:19)
[2020-07-11] MEDS: INSULIN LISPRO 100 UNIT/1 ML 3ML VIAL SQ SCH ×3 (05:48→17:25)
[2020-07-11] MEDS: CLINDAMYCIN 600MG / 50ML 50 ML IV SCH ×3 (05:48→17:22)
[2020-07-11] MEDS: HEPARIN 25,000U/0.45% NS 250ML 250 ML IV SCH (06:17)
[2020-07-11] MEDS: AMIODARONE HCL 200 MG TAB PO SCH ×2 (08:23→17:22)
[2020-07-11] MEDS: METOPROLOL TARTRATE 25 MG TAB PO SCH ×2 (08:24→17:22)
[2020-07-11] MEDS: CLOPIDOGREL BISULFATE 75 MG TAB PO SCH (08:24)
[2020-07-11] MEDS: AZTREONAM 1 GM/NS 50 ML 50 ML IV SCH ×2 (08:56→22:03)
[2020-07-11] MEDS: FUROSEMIDE INJ 10 MG/ML 4 ML VIAL IV SCH ×2 (08:56→20:44)
[2020-07-11] MEDS: ATORVASTATIN 40 MG TAB PO SCH (20:44)
[2020-07-12] VITALS (8 sets, daily range): BP systolic 142–163; BP diastolic 51–67
[2020-07-12] MEDS: CLINDAMYCIN 600MG / 50ML 50 ML IV SCH ×4 (06:00→17:44)
[2020-07-12] MEDS: INSULIN LISPRO 100 UNIT/1 ML 3ML VIAL SQ SCH ×6 (06:00→22:01)
[2020-07-12] MEDS: AMIODARONE HCL 200 MG TAB PO SCH ×2 (09:41→17:44)
[2020-07-12] MEDS: FUROSEMIDE INJ 10 MG/ML 4 ML VIAL IV SCH (09:41)
[2020-07-12] MEDS: METOPROLOL TARTRATE 25 MG TAB PO SCH ×2 (09:41→17:44)
[2020-07-12] MEDS: CLOPIDOGREL BISULFATE 75 MG TAB PO SCH (09:41)
[2020-07-12] MEDS ORDERED: BISACODYL 5 MG TAB EC PO PRN (09:45)
[2020-07-12] MEDS ORDERED: BISACODYL 10 MG SUPP PR PRN (09:45)
[2020-07-12] MEDS ORDERED: ONDANSETRON HCL INJ 2MG/ML 2ML 2 MG/ML VIAL IV PRN (09:45)
[2020-07-12] MEDS ORDERED: MAGNESIUM HYDROXIDE 30 ML UDC PO PRN (09:45)
[2020-07-12] MEDS ORDERED: ACETAMINOPHEN 325 MG TAB PO PRN (09:45)
[2020-07-12] MEDS: AZTREONAM 1 GM/NS 50 ML 50 ML IV SCH ×2 (10:03→20:46)
[2020-07-12 12:20] LABS: ANION GAP 15.2 mmol/L (8-16); BLOOD UREA NITROGEN 28 mg/dL (7-26); BUN/CREATININE RATIO 24 (6-25); CALCIUM 8.7 mg/dL (8.4-10.2); CARBON DIOXIDE 25 mmol/L (22-29); CHLORIDE 109 mmol/L (98-107); CREATININE, SERUM 1.17 mg/dL (0.72-1.25); EST GLOMERULAR FILTRATION RATE > 60 ML/MIN (60-); GLUCOSE 121 mg/dL (74-118); POTASSIUM 3.2 mmol/L (3.5-5.1); SODIUM 146 mmol/L (136-145)
[2020-07-12] MEDS ORDERED: POTASSIUM CHLORIDE 20 MEQ TAB CR PO STA (15:26)
[2020-07-12] MEDS ORDERED: POTASSIUM CHLORIDE 20 MEQ TAB CR PO ONE (15:30)
[2020-07-12] MEDS: LACTOBACILLUS ACIDOPHILUS CAPSULE PO SCH ×2 (15:36→20:45)
[2020-07-12] MEDS: SENNOSIDES 8.6 MG TAB PO SCH (17:00)
[2020-07-12] MEDS: DEXTROSE 5% 1,000 ML IV SCH (17:44)
[2020-07-12] MEDS: ATORVASTATIN 40 MG TAB PO SCH (20:45)
[2020-07-13] VITALS (10 sets, daily range): BP systolic 107–196; BP diastolic 53–101
[2020-07-13] MEDS: CLINDAMYCIN 600MG / 50ML 50 ML IV SCH ×5 (00:36→23:45)
[2020-07-13] MEDS: HEPARIN 25,000U/0.45% NS 250ML 250 ML IV SCH ×2 (01:45→15:46)
[2020-07-13 05:02] LABS: BASOPHILS # (AUTO) 0.1 (0.0-0.1); BASOPHILS % 0.5 % (0.0-1.0); EOSINOPHILS % 9.4 % (0.0-6.0); HEMATOCRIT 31.7 % (38.2-49.6); HEMOGLOBIN 9.7 g/dL (14.0-18.0); LYMPHOCYTES # (AUTO) 1.8 (1.0-3.2); MEAN CORPUSCULAR HEMOGLOBIN 27.6 pg (28-32); MEAN CORPUSCULAR HGB CONC 30.6 g/dL (31-35); MEAN CORPUSCULAR VOLUME 90.3 fL (81-99); MONOCYTES # (AUTO) 1.5 (0.2-0.8); MONOCYTES % 13.6 % (4.4-11.3); NEUTROPHILS # (AUTO) 6.2 (2.1-6.9); NEUTROPHILS % 58.2 % (38.7-80.0); PLATELET COUNT 425 x10e3/uL (140-360); RED BLOOD COUNT 3.51 x10e6/uL (4.3-5.7); RED CELL DISTRIBUTION WIDTH 14.5 % (11.7-14.4)
[2020-07-13 05:21] LABS: ALANINE AMINOTRANSFERASE 9 IU/L (0-55); ALBUMIN 2.4 g/dL (3.5-5.0); ALBUMIN/GLOBULIN RATIO 0.5 (0.8-2.0); ALKALINE PHOSPHATASE 51 IU/L (40-150); ANION GAP 14.9 mmol/L (8-16); BLOOD UREA NITROGEN 25 mg/dL (7-26); BUN/CREATININE RATIO 24 (6-25); CALCIUM 8.7 mg/dL (8.4-10.2); CARBON DIOXIDE 24 mmol/L (22-29); CHLORIDE 109 mmol/L (98-107); CREATININE, SERUM 1.06 mg/dL (0.72-1.25); EST GLOMERULAR FILTRATION RATE > 60 ML/MIN (60-); GLUCOSE 158 mg/dL (74-118); SODIUM 145 mmol/L (136-145)
[2020-07-13 05:24] LABS: POTASSIUM 2.9 mmol/L (3.5-5.1)
[2020-07-13] MEDS ORDERED: POTASSIUM CHLORIDE 20 MEQ TAB CR PO STA (05:29)
[2020-07-13] MEDS ORDERED: POTASSIUM CHLORIDE 20MEQ/100ML 200 ML IV ONE (05:30)
[2020-07-13] MEDS ORDERED: SODIUM CHLORIDE 0.9% 250ML 250 ML ONE (05:47)
[2020-07-13] MEDS: DEXTROSE 5% 1,000 ML IV SCH ×2 (06:16→12:55)
[2020-07-13] MEDS: INSULIN LISPRO 100 UNIT/1 ML 3ML VIAL SQ SCH ×4 (10:10→21:00)
[2020-07-13] MEDS: AMIODARONE HCL 200 MG TAB PO SCH ×2 (10:10→17:16)
[2020-07-13] MEDS: METOPROLOL TARTRATE 25 MG TAB PO SCH ×2 (10:11→17:16)
[2020-07-13] MEDS: LACTOBACILLUS ACIDOPHILUS CAPSULE PO SCH ×3 (10:11→21:00)
[2020-07-13] MEDS: CLOPIDOGREL BISULFATE 75 MG TAB PO SCH (10:11)
[2020-07-13] MEDS: SENNOSIDES 8.6 MG TAB PO SCH ×2 (10:11→16:07)
[2020-07-13] MEDS: AZTREONAM 1 GM/NS 50 ML 50 ML IV SCH ×2 (10:12→22:56)
[2020-07-13] MEDS ORDERED: HEPARIN 25,000 UNIT 1,000 UNIT in DEXTROSE 5% 250ML 250 ML IV SCH (12:30)
[2020-07-13] MEDS: FUROSEMIDE 40 MG TAB PO SCH (16:07)
[2020-07-13] MEDS: ATORVASTATIN 40 MG TAB PO SCH (22:55)
[2020-07-14] VITALS (8 sets, daily range): BP systolic 146–168; BP diastolic 52–76
[2020-07-14 04:38] LABS: MAGNESIUM 1.6 MG/DL (1.3-2.1)
[2020-07-14 04:39] LABS: ANION GAP 17.2 mmol/L (8-16); BLOOD UREA NITROGEN 21 mg/dL (7-26); BUN/CREATININE RATIO 21 (6-25); CALCIUM 8.6 mg/dL (8.4-10.2); CARBON DIOXIDE 22 mmol/L (22-29); CHLORIDE 110 mmol/L (98-107); CREATININE, SERUM 1.02 mg/dL (0.72-1.25); EST GLOMERULAR FILTRATION RATE > 60 ML/MIN (60-); GLUCOSE 100 mg/dL (74-118); POTASSIUM 3.2 mmol/L (3.5-5.1); SODIUM 146 mmol/L (136-145)
[2020-07-14] MEDS: CLINDAMYCIN 600MG / 50ML 50 ML IV SCH (05:11)
[2020-07-14] MEDS: INSULIN LISPRO 100 UNIT/1 ML 3ML VIAL SQ SCH ×4 (07:30→20:35)
[2020-07-14] MEDS: SENNOSIDES 8.6 MG TAB PO SCH ×2 (09:00→16:58)
[2020-07-14] MEDS: ASPIRIN 81 MG ENTERIC COATED PO SCH (10:04)
[2020-07-14] MEDS: FUROSEMIDE 40 MG TAB PO SCH (10:05)
[2020-07-14] MEDS: AMIODARONE HCL 200 MG TAB PO SCH ×2 (10:05→17:01)
[2020-07-14] MEDS: LACTOBACILLUS ACIDOPHILUS CAPSULE PO SCH ×3 (10:06→20:52)
[2020-07-14] MEDS: METOPROLOL TARTRATE 25 MG TAB PO SCH ×2 (10:06→17:01)
[2020-07-14] MEDS: CLOPIDOGREL BISULFATE 75 MG TAB PO SCH (10:06)
[2020-07-14] MEDS: AZTREONAM 1 GM/NS 50 ML 50 ML IV SCH ×2 (10:06→20:52)
[2020-07-14] MEDS: HEPARIN 25,000U/0.45% NS 250ML 250 ML IV SCH (10:17)
[2020-07-14] MEDS ORDERED: POTASSIUM CHLORIDE 10MEQ EA PO ONE (10:30)
[2020-07-14] MEDS: POTASSIUM CHLORIDE 20 MEQ TAB CR PO SCH (13:02)
[2020-07-14] MEDS: AMLODIPINE BESYLATE 5 MG TAB PO SCH (13:03)
[2020-07-14] MEDS: ATORVASTATIN 40 MG TAB PO SCH (20:52)
[2020-07-15] VITALS (8 sets, daily range): BP systolic 112–157; BP diastolic 41–70
[2020-07-15] MEDS: HEPARIN 25,000U/0.45% NS 250ML 250 ML IV SCH (02:51)
[2020-07-15 05:30] LABS: BASOPHILS # (AUTO) 0.1 (0.0-0.1); BASOPHILS % 0.4 % (0.0-1.0); EOSINOPHILS # (AUTO) 0.8 (0.0-0.4); EOSINOPHILS % 6.8 % (0.0-6.0); HEMATOCRIT 31.3 % (38.2-49.6); HEMOGLOBIN 9.5 g/dL (14.0-18.0); LYMPHOCYTES # (AUTO) 2.3 (1.0-3.2); LYMPHOCYTES % 19.4 % (18.0-39.1); MEAN CORPUSCULAR HEMOGLOBIN 27.6 pg (28-32); MEAN CORPUSCULAR HGB CONC 30.4 g/dL (31-35); MONOCYTES # (AUTO) 1.1 (0.2-0.8); MONOCYTES % 9.2 % (4.4-11.3); NEUTROPHILS # (AUTO) 7.3 (2.1-6.9); PLATELET COUNT 461 x10e3/uL (140-360); RED BLOOD COUNT 3.44 x10e6/uL (4.3-5.7); RED CELL DISTRIBUTION WIDTH 14.6 % (11.7-14.4)
[2020-07-15 05:56] LABS: ANION GAP 13.3 mmol/L (8-16); BLOOD UREA NITROGEN 18 mg/dL (7-26); BUN/CREATININE RATIO 19 (6-25); CALCIUM 8.3 mg/dL (8.4-10.2); CARBON DIOXIDE 25 mmol/L (22-29); CHLORIDE 109 mmol/L (98-107); CREATININE, SERUM 0.93 mg/dL (0.72-1.25); EST GLOMERULAR FILTRATION RATE > 60 ML/MIN (60-); GLUCOSE 96 mg/dL (74-118); POTASSIUM 3.3 mmol/L (3.5-5.1); SODIUM 144 mmol/L (136-145)
[2020-07-15 06:19] LABS: MAGNESIUM 1.6 MG/DL (1.3-2.1); PHOSPHORUS 2.5 MG/DL (2.3-4.7)
[2020-07-15] MEDS: INSULIN LISPRO 100 UNIT/1 ML 3ML VIAL SQ SCH ×4 (07:30→21:00)
[2020-07-15] MEDS: SENNOSIDES 8.6 MG TAB PO SCH ×2 (09:00→17:00)
[2020-07-15] MEDS: POTASSIUM CHLORIDE 10MEQ EA PO SCH (09:49)
[2020-07-15] MEDS: FUROSEMIDE 40 MG TAB PO SCH (09:50)
[2020-07-15] MEDS: AMIODARONE HCL 200 MG TAB PO SCH ×2 (09:50→17:37)
[2020-07-15] MEDS: ASPIRIN 81 MG ENTERIC COATED PO SCH (09:50)
[2020-07-15] MEDS: POTASSIUM CHLORIDE 20 MEQ TAB CR PO SCH ×2 (09:50→13:07)
[2020-07-15] MEDS: LACTOBACILLUS ACIDOPHILUS CAPSULE PO SCH ×3 (09:51→20:40)
[2020-07-15] MEDS: METOPROLOL TARTRATE 25 MG TAB PO SCH ×2 (09:51→17:38)
[2020-07-15] MEDS: CLOPIDOGREL BISULFATE 75 MG TAB PO SCH (09:51)
[2020-07-15] MEDS: AMLODIPINE BESYLATE 5 MG TAB PO SCH (09:51)
[2020-07-15] MEDS: AZTREONAM 1 GM/NS 50 ML 50 ML IV SCH ×2 (10:01→20:40)
[2020-07-15] MEDS ORDERED: SODIUM CHLORIDE 0.9% 1000ML 600 ML IV ONE (14:00)
[2020-07-15] MEDS: ENOXAPARIN SOD INJ 120 MG/0.8 ML SYR SC SCH (20:40)
[2020-07-15] MEDS: ATORVASTATIN 40 MG TAB PO SCH (20:40)
[2020-07-16] VITALS (9 sets, daily range): BP systolic 121–169; BP diastolic 42–68
[2020-07-16] MEDS ORDERED: SODIUM CHLORIDE 0.9% 1000ML 600 ML IV ONE
[2020-07-16] MEDS: SENNOSIDES 8.6 MG TAB PO SCH ×2 (07:23→16:42)
[2020-07-16] MEDS: ENOXAPARIN SOD INJ 120 MG/0.8 ML SYR SC SCH ×2 (07:25→21:30)
[2020-07-16] MEDS: INSULIN LISPRO 100 UNIT/1 ML 3ML VIAL SQ SCH ×4 (07:30→21:00)
[2020-07-16] MEDS: POTASSIUM CHLORIDE 10MEQ EA PO SCH (08:10)
[2020-07-16] MEDS: ASPIRIN 81 MG ENTERIC COATED PO SCH (08:14)
[2020-07-16] MEDS: AMIODARONE HCL 200 MG TAB PO SCH ×2 (08:15→18:06)
[2020-07-16] MEDS: FUROSEMIDE 40 MG TAB PO SCH (08:20)
[2020-07-16] MEDS: POTASSIUM CHLORIDE 20 MEQ TAB CR PO SCH (08:20)
[2020-07-16] MEDS: METOPROLOL TARTRATE 25 MG TAB PO SCH ×2 (08:21→18:06)
[2020-07-16] MEDS: AMLODIPINE BESYLATE 5 MG TAB PO SCH (08:21)
[2020-07-16] MEDS: AZTREONAM 1 GM/NS 50 ML 50 ML IV SCH ×2 (08:22→21:45)
[2020-07-16] MEDS: LACTOBACILLUS ACIDOPHILUS CAPSULE PO SCH ×3 (08:22→21:30)
[2020-07-16] MEDS: CLOPIDOGREL BISULFATE 75 MG TAB PO SCH (08:22)
[2020-07-16] MEDS: SODIUM CHLORIDE 0.45% 1,000 ML IV SCH ×2 (10:38→20:30)
[2020-07-16] MEDS: ACETYLCYSTEINE 20% INHAL SOLN 30 ML VIAL PO SCH ×2 (10:38→18:06)
[2020-07-16] MEDS ORDERED: HEPARIN SOD (PORCINE) 1000 UNIT/ML 30ML ONE (14:25)
[2020-07-16] MEDS ORDERED: LIDOCAINE HCL 2% LOCAL 20 ML VIAL ONE (14:26)
[2020-07-16] MEDS ORDERED: FENTANYL CITRATE/PF 100MCG/2 ML INJ ONE (14:26)
[2020-07-16] MEDS ORDERED: MIDAZOLAM HCL 2 MG/2 ML VIAL ONE (14:26)
[2020-07-16] MEDS ORDERED: VERAPAMIL HCL 2.5 MG/ML 2 ML VIAL ONE (14:26)
[2020-07-16] MEDS ORDERED: IOPAMIDOL 370 MG/ML 200 ML INFUS..BTL INJ ONE (14:27)
[2020-07-16] MEDS ORDERED: SODIUM CHLORIDE 0.9% 1000ML 1,000 ML ONE (14:29)
[2020-07-16] MEDS ORDERED: ASPIRIN 325 MG TAB ONE (17:08)
[2020-07-16] MEDS: ATORVASTATIN 40 MG TAB PO SCH (21:30)
[2020-07-17] VITALS (7 sets, daily range): BP systolic 125–165; BP diastolic 54–67
[2020-07-17] MEDS: SODIUM CHLORIDE 0.45% 1,000 ML IV SCH ×2 (05:28→06:30)
[2020-07-17 06:48] LABS: ALANINE AMINOTRANSFERASE 13 IU/L (0-55); ALKALINE PHOSPHATASE 48 IU/L (40-150); ANION GAP 14.5 mmol/L (8-16); BLOOD UREA NITROGEN 17 mg/dL (7-26); BUN/CREATININE RATIO 18 (6-25); CALCIUM 8.2 mg/dL (8.4-10.2); CARBON DIOXIDE 22 mmol/L (22-29); CHLORIDE 111 mmol/L (98-107); CREATININE, SERUM 0.94 mg/dL (0.72-1.25); EST GLOMERULAR FILTRATION RATE > 60 ML/MIN (60-); GLUCOSE 96 mg/dL (74-118); POTASSIUM 3.5 mmol/L (3.5-5.1); SODIUM 144 mmol/L (136-145)
[2020-07-17] MEDS: INSULIN LISPRO 100 UNIT/1 ML 3ML VIAL SQ SCH ×4 (07:30→21:08)
[2020-07-17] MEDS: POTASSIUM CHLORIDE 10MEQ EA PO SCH (07:30)
[2020-07-17 07:42] LABS: ALBUMIN 2.9 g/dL (3.5-5.0); ALBUMIN/GLOBULIN RATIO 0.7 (0.8-2.0)
[2020-07-17] MEDS: ACETYLCYSTEINE 20% INHAL SOLN 30 ML VIAL PO SCH ×2 (09:00→16:16)
[2020-07-17] MEDS: ENOXAPARIN SOD INJ 120 MG/0.8 ML SYR SC SCH ×2 (09:05→21:04)
[2020-07-17] MEDS: AZTREONAM 1 GM/NS 50 ML 50 ML IV SCH ×2 (09:18→21:04)
[2020-07-17] MEDS: POTASSIUM CHLORIDE 20 MEQ TAB CR PO SCH (09:21)
[2020-07-17] MEDS: ASPIRIN 81 MG ENTERIC COATED PO SCH (09:21)
[2020-07-17] MEDS: AMIODARONE HCL 200 MG TAB PO SCH ×2 (09:21→16:15)
[2020-07-17] MEDS: SENNOSIDES 8.6 MG TAB PO SCH ×2 (09:22→16:15)
[2020-07-17] MEDS: METOPROLOL TARTRATE 25 MG TAB PO SCH ×2 (09:22→16:15)
[2020-07-17] MEDS: LACTOBACILLUS ACIDOPHILUS CAPSULE PO SCH ×3 (09:22→21:04)
[2020-07-17] MEDS: CLOPIDOGREL BISULFATE 75 MG TAB PO SCH (09:22)
[2020-07-17] MEDS: AMLODIPINE BESYLATE 5 MG TAB PO SCH (09:22)
[2020-07-17] MEDS ORDERED: DEXTROSE 5% 1,000 ML IV ONE (09:30)
[2020-07-17] MEDS: ATORVASTATIN 40 MG TAB PO SCH (21:03)
[2020-07-18] VITALS: BP 150/49
[2020-07-18 04:00] VITALS: BP 128/61
[2020-07-18 06:01] LABS: BASOPHILS # (AUTO) 0.1 (0.0-0.1); BASOPHILS % 0.4 % (0.0-1.0); EOSINOPHILS # (AUTO) 0.6 (0.0-0.4); EOSINOPHILS % 4.9 % (0.0-6.0); HEMATOCRIT 32.4 % (38.2-49.6); LYMPHOCYTES # (AUTO) 2.3 (1.0-3.2); LYMPHOCYTES % 18.6 % (18.0-39.1); MEAN CORPUSCULAR HEMOGLOBIN 28.4 pg (28-32); MEAN CORPUSCULAR HGB CONC 30.9 g/dL (31-35); MONOCYTES # (AUTO) 1.2 (0.2-0.8); MONOCYTES % 9.1 % (4.4-11.3); NEUTROPHILS # (AUTO) 8.2 (2.1-6.9); NEUTROPHILS % 65.3 % (38.7-80.0); PLATELET COUNT 398 x10e3/uL (140-360); RED BLOOD COUNT 3.52 x10e6/uL (4.3-5.7); RED CELL DISTRIBUTION WIDTH 14.8 % (11.7-14.4)
[2020-07-18 06:22] LABS: ANION GAP 16.3 mmol/L (8-16); BLOOD UREA NITROGEN 13 mg/dL (7-26); BUN/CREATININE RATIO 14 (6-25); CALCIUM 8.7 mg/dL (8.4-10.2); CARBON DIOXIDE 21 mmol/L (22-29); CHLORIDE 110 mmol/L (98-107); CREATININE, SERUM 0.94 mg/dL (0.72-1.25); EST GLOMERULAR FILTRATION RATE > 60 ML/MIN (60-); GLUCOSE 113 mg/dL (74-118); POTASSIUM 3.3 mmol/L (3.5-5.1); SODIUM 144 mmol/L (136-145)
[2020-07-18] MEDS: INSULIN LISPRO 100 UNIT/1 ML 3ML VIAL SQ SCH (07:30)
[2020-07-18] MEDS: POTASSIUM CHLORIDE 10MEQ EA PO SCH (08:43)
[2020-07-18] MEDS: POTASSIUM CHLORIDE 20 MEQ TAB CR PO SCH (08:44)
[2020-07-18] MEDS: ASPIRIN 81 MG ENTERIC COATED PO SCH (08:44)
[2020-07-18] MEDS: LACTOBACILLUS ACIDOPHILUS CAPSULE PO SCH (08:45)
[2020-07-18] MEDS: AMIODARONE HCL 200 MG TAB PO SCH (08:45)
[2020-07-18] MEDS: METOPROLOL TARTRATE 25 MG TAB PO SCH (08:45)
[2020-07-18] MEDS: AMLODIPINE BESYLATE 5 MG TAB PO SCH (08:45)
[2020-07-18] MEDS: SENNOSIDES 8.6 MG TAB PO SCH (08:45)
[2020-07-18] MEDS: CLOPIDOGREL BISULFATE 75 MG TAB PO SCH (08:45)
[2020-07-18] MEDS: ENOXAPARIN SOD INJ 120 MG/0.8 ML SYR SC SCH (08:48)
[2020-07-18] MEDS ORDERED: POTASSIUM CHLORIDE 10MEQ EA PO ONE (09:30)
== END 2020-07-18 12:33 | disposition home health service (06) | DRG 246 ==
LOC: ER 18:10 → ERHOLD 19:12 → MERGE 19:12 → ICU 23:35 → IMCU 07-10 23:55 → MED/SURG 07-12 10:34
PROVIDERS: ADMIT Internal Medicine; ATTEND Internal Medicine
PROC: 027034Z Dilation of Coronary Artery, One Artery with Drug-eluting Intraluminal Device, Percutaneous Approach (ICD-10-PCS; principal; 2020-07-06)
PROC: 4A023N7 Measurement of Cardiac Sampling and Pressure, Left Heart, Percutaneous Approach (ICD-10-PCS; 2020-07-06)
PROC: B2111ZZ Fluoroscopy of Multiple Coronary Arteries using Low Osmolar Contrast (ICD-10-PCS; 2020-07-06)
PROC: 02HV33Z Insertion of Infusion Device into Superior Vena Cava, Percutaneous Approach (ICD-10-PCS; 2020-07-06)
PROC: 0BH17EZ Insertion of Endotracheal Airway into Trachea, Via Natural or Artificial Opening (ICD-10-PCS; 2020-07-06)
PROC: 5A1935Z Respiratory Ventilation, Less than 24 Consecutive Hours (ICD-10-PCS; 2020-07-06)
DX: I21.4 Non-ST elevation (NSTEMI) myocardial infarction (principal); J69.0 Pneumonitis due to inhalation of food and vomit; I46.9 Cardiac arrest, cause unspecified; I50.23 Acute on chronic systolic (congestive) heart failure; J96.01 Acute respiratory failure with hypoxia; N17.9 Acute kidney failure, unspecified; D68.4 Acquired coagulation factor deficiency; N39.0 Urinary tract infection, site not specified; I25.10 Atherosclerotic heart disease of native coronary artery without angina pectoris; I48.0 Paroxysmal atrial fibrillation; R31.0 Gross hematuria; K80.80 Other cholelithiasis without obstruction; E83.51 Hypocalcemia; E87.6 Hypokalemia; Z88.5 Allergy status to narcotic agent; Z88.0 Allergy status to penicillin; E66.01 Morbid (severe) obesity due to excess calories; Z68.38 Body mass index [BMI] 38.0-38.9, adult; N40.1 Benign prostatic hyperplasia with lower urinary tract symptoms; R33.8 Other retention of urine; I50.9 Heart failure, unspecified; I11.0 Hypertensive heart disease with heart failure; Z20.828 Contact with and (suspected) exposure to other viral communicable diseases
CPT/HCPCS: 36415; 36600; 71045; 71260; 74018; 74230; 76770; 80048; 80053; 80061; 80202; 81001; 82140; 82550; 82553; 82805; 82948; 83036; 83690; 83735; 83880; 84100; 84443; 84484; 85025; 85730; 87040; 92928; 93005; 93306; 93458; 94002; 94003; 94660; 96372; 97139; 99152; 99153; 99251; 99284; C1725; C1760; C1769; C1874; C1887; J0330; J0360; J1644; J1650; J1940; J1956; J2001; J2250; J2405; J3010; J3370; J3480; J7030; J7040; J7050; J7070; P9047; Q9967; U0002

== ENCOUNTER 2020-08-02 23:05 | Emergency (ER) | payer MEDICARE, OTHER ==
[~2020-08-02] VITALS: Ht 182.9 cm; Wt 128.4 kg
[2020-08-02 23:40] LABS: BASOPHILS # (AUTO) 0.1 (0.0-0.1); BASOPHILS % 0.6 % (0.0-1.0); EOSINOPHILS # (AUTO) 0.3 (0.0-0.4); EOSINOPHILS % 3.4 % (0.0-6.0); HEMATOCRIT 31.8 % (38.2-49.6); HEMOGLOBIN 9.7 g/dL (14.0-18.0); LYMPHOCYTES # (AUTO) 2.1 (1.0-3.2); LYMPHOCYTES % 24.6 % (18.0-39.1); MEAN CORPUSCULAR HEMOGLOBIN 28.2 pg (28-32); MEAN CORPUSCULAR HGB CONC 30.5 g/dL (31-35); MEAN CORPUSCULAR VOLUME 92.4 fL (81-99); MONOCYTES % 12.3 % (4.4-11.3); NEUTROPHILS % 58.7 % (38.7-80.0); PLATELET COUNT 332 x10e3/uL (140-360); RED BLOOD COUNT 3.44 x10e6/uL (4.3-5.7); RED CELL DISTRIBUTION WIDTH 14.8 % (11.7-14.4)
[2020-08-02 23:49] LABS: INR 1.37; PROTHROMBIN TIME 17.6 seconds (11.9-14.5)
[2020-08-02 23:50] LABS: PARTIAL THROMBOPLASTIN TIME 47.6 seconds (23.8-35.5)
--- NOTE | 2020-08-02 23:52 | Emergency Department Note ---
History of Present Illnes History of Present Illness Chief Complaint: Chest Pain History of Present Illness This is a 80 year old male brought in by family for low heart. Family states heart rate started trending down on the 15th and family has been monitoring rate. Family also state patient has been confused and having slurred speech for 2 weeks. Patient denies chest pain or shortness of breath. Historian: Patient Arrival Mode: Car Onset (how long ago): day(s) (2) Location: HEART Quality: SLOW HEART RATE Radiation: Reports non-radiation Severity: moderate Onset quality: gradual Duration (how long): day(s) (2) Timing of current episode: constant Progression: unchanged Chronicity: new Context: Reports recent illness (NON STEMI LAST MONTH) Relieving factors: none Exacerbating factors: none Associated symptoms: Reports other (SLURRERES SPEECH AND SOME CONFUSION FOR PAST 2 WEEKS WELL) Treatments prior to arrival: none Past Medical/Family History Physician Review I have reviewed the patient's past medical and family history. Any updates have been documented here. Past Medical History Recent Fever: No Clinical Suspicion of Infectio: No New/Unexplained Change in Ment: No Past Medical History: Hypertension, Diabetes, MS Other Medical History: WOUND CARE Past Surgical History: Appendectomy, PCI Other Surgery: wound debridement Social History Smoking Cessation: Never Smoker Alcohol Use: None TB Exposure/Symptoms: No Family History Family history of heart diseas: No Other Last Tetanus: UTD Review of Systems Review of Systems Constitutional: Reports no symptoms EENTM: Reports no symptoms Cardiovascular: Reports as per HPI Respiratory: Reports no symptoms Gastrointestinal: Reports no symptoms Genitourinary: Reports no symptoms Musculoskeletal: Reports no symptoms Integumentary: Reports no symptoms Neurological: Reports as per HPI Psychological: Reports no symptoms Endocrine: Reports no symptoms Hematological/Lymphatic: Reports no symptoms Physical Exam Related Data Allergies: Coded Allergies: chlorhexidine (Verified Allergy, Intermediate, ocasio skin, 11/14/19) Penicillins (Verified Allergy, Unknown, 11/14/19) codeine (Verified Allergy, Unknown, 11/14/19) Triage Vital Signs Vital Signs Date Time Temp Pulse Resp B/P (MAP) Pulse Ox O2 Delivery O2 Flow Rate FiO2 08/02/20 23:18 98.2 49 19 130/59 100 Room Air Vital signs reviewed: Yes Physical Exam CONSTITUTIONAL Constitutional: Present well-developed, Present well-nourished; Absent distressed HENT HENT: Present normocephalic, Present atraumatic, Present oropharynx clear/moist, Present nose normal HENT L/R: Present left ext ear normal, Present right ext ear normal EYES Eyes: Reports PERRL, Reports conjunctivae normal NECK Neck: Present ROM normal PULMONARY Pulmonary: Present effort normal, Present breath sounds normal CARDIOVASCULAR Cardiovascular: Present regular rhythm, Present heart sounds normal, Present capillary refill normal, Present bradycardia (44) GASTROINTESTINAL Abdominal: Present soft, Present nontender, Present bowel sounds normal GENITOURINARY Genitourinary: Present exam deferred SKIN Skin: Present warm, Present dry MUSCULOSKELETAL Musculoskeletal: Present ROM normal NEUROLOGICAL PT ALERT AND ORIENTED AT THIS TIME MILD LEFT FACIAL DROOP PRESENT, LEFT ARM AND LEG WITH 4-/5 STRENGTH WELL, (SLIGHT LEFT SIDE WEAKNESS) Neurological: Present alert, Present oriented x 3 PSYCHOLOGICAL Psychological: Present mood/affect normal, Present judgement normal Results Laboratory Result Diagram: 08/02/20 6582 Laboratory Laboratory Tests Test 08/02/20 23:25 White Blood Count 8.44 x10e3/uL (4.8-10.8) Red Blood Count 3.44 x10e6/uL (4.3-5.7) Hemoglobin 9.7 g/dL (14.0-18.0) Hematocrit 31.8 % (38.2-49.6) Mean Corpuscular Volume 92.4 fL (81-99) Mean Corpuscular Hemoglobin 28.2 pg (28-32) Mean Corpuscular Hemoglobin Concent 30.5 g/dL (31-35) Red Cell Distribution Width 14.8 % (11.7-14.4) Platelet Count 332 x10e3/uL (140-360) Neutrophils (%) (Auto) 58.7 % (38.7-80.0) Lymphocytes (%) (Auto) 24.6 % (18.0-39.1) Monocytes (%) (Auto) 12.3 % (4.4-11.3) Eosinophils (%) (Auto) 3.4 % (0.0-6.0) Basophils (%) (Auto) 0.6 % (0.0-1.0) Neutrophils # (Auto) 5.0 (2.1-6.9) Lymphocytes # (Auto) 2.1 (1.0-3.2) Monocytes # (Auto) 1.0 (0.2-0.8) Eosinophils # (Auto) 0.3 (0.0-0.4) Basophils # (Auto) 0.1 (0.0-0.1) Absolute Immature Granulocyte (auto 0.03 x10e3/uL (0-0.1) Prothrombin Time 17.6 seconds (11.9-14.5) Prothromb Time International Ratio 1.37 Activated Partial Thromboplast Time 47.6 seconds (23.8-35.5) Sodium Level 139 mmol/L (136-145) Potassium Level 4.9 mmol/L (3.5-5.1) Chloride Level 105 mmol/L (98-107) Carbon Dioxide Level 24 mmol/L (22-29) Anion Gap 14.9 mmol/L (8-16) Blood Urea Nitrogen 33 mg/dL (7-26) Creatinine 2.46 mg/dL (0.72-1.25) Estimat Glomerular Filtration Rate 31 ML/MIN (60-) BUN/Creatinine Ratio 13 (6-25) Glucose Level 124 mg/dL (74-118) Calcium Level 8.9 mg/dL (8.4-10.2) Total Bilirubin 0.4 mg/dL (0.2-1.2) Aspartate Amino Transf (AST/SGOT) 19 IU/L (5-34) Alanine Aminotransferase (ALT/SGPT) 12 IU/L (0-55) Alkaline Phosphatase 67 IU/L (40-150) Creatine Kinase 34 IU/L (30-200) Creatine Kinase MB 1.20 ng/mL (0-5.0) Troponin I 0.031 ng/mL (0-0.300) Total Protein 8.0 g/dL (6.5-8.1) Albumin 3.4 g/dL (3.5-5.0) Globulin 4.6 g/dL (2.3-3.5) Albumin/Globulin Ratio 0.7 (0.8-2.0) Laboratory Tests Test 08/02/20 23:25 White Blood Count 8.44 x10e3/uL (4.8-10.8) Red Blood Count 3.44 x10e6/uL (4.3-5.7) Hemoglobin 9.7 g/dL (14.0-18.0) Hematocrit 31.8 % (38.2-49.6) Mean Corpuscular Volume 92.4 fL (81-99) Mean Corpuscular Hemoglobin 28.2 pg (28-32) Mean Corpuscular Hemoglobin Concent 30.5 g/dL (31-35) Red Cell Distribution Width 14.8 % (11.7-14.4) Platelet Count 332 x10e3/uL (140-360) Neutrophils (%) (Auto) 58.7 % (38.7-80.0) Lymphocytes (%) (Auto) 24.6 % (18.0-39.1) Monocytes (%) (Auto) 12.3 % (4.4-11.3) Eosinophils (%) (Auto) 3.4 % (0.0-6.0) Basophils (%) (Auto) 0.6 % (0.0-1.0) Neutrophils # (Auto) 5.0 (2.1-6.9) Lymphocytes # (Auto) 2.1 (1.0-3.2) Monocytes # (Auto) 1.0 (0.2-0.8) Eosinophils # (Auto) 0.3 (0.0-0.4) Basophils # (Auto) 0.1 (0.0-0.1) Absolute Immature Granulocyte (auto 0.03 x10e3/uL (0-0.1) Prothrombin Time 17.6 seconds (11.9-14.5) Prothromb Time International Ratio 1.37 Lab results reviewed: Yes Imaging Imaging results reviewed: Yes Impressions An MRI of the brain with and without contrast may be indicated, given the discrepancy of the findings on the CT with the described left weakness on physical exam. Signed by: Dr. Ra Doherty M.D. on 08/03/2020 12:34 AM ORIGINAL REPORT History:Slurred speech Comparison studies: None Technique: Axial images were obtained from the skull base to the vertex. Coronal and sagittal images reconstructed from the axial data. Dose modulation, iterative reconstruction, and/or weight based adjustment of the mA/kV was utilized to reduce the radiation dose to as low as reasonably achievable. Intravenous contrast: None Findings: Scalp/skull: No abnormalities. Extra-axial spaces: No masses. No fluid collections. Brain sulci: Mildly prominent. Ventricles: Mild compensatory dilatation. No hydrocephalus. Parenchyma: An acute cortical vascular insult, which involves the supramarginal and angular gyri of the left inferior parietal lobule and the posterior aspect of the left superior temporal gyrus, is associated with an ill-defined, heterogeneous 1.2 cm hematoma (series 400, image 47, series 2, image 17 and series 401, image 48). Mass effect is regional. No shift. Subtle hypodensities in the supratentorial white matter are small vessel ischemic changes. No masses, hemorrhage, additional acute or chronic cortical vascular insults. Sellar/suprasellar region: No abnormalities. Craniocervical junction: Patent foramen magnum. No Chiari one malformation. Incidental findings: Course calcifications in the intradural vertebral arteries and in the carotid siphons . Impression: 1. An acute, early subacute, cortical, partially hemorrhagic left temporoparietal vascular insult has compromised the corresponding branches of the posterior division of the left middle cerebral artery. 2. No additional acute abnormalities. 3. Dr. Moeller notified of the findings on 08/03/2020 1224 hours. Chronic findings: 1. Mild age-related generalized volume loss. 2. Mild supratentorial white matter small vessel ischemic changes. Signed by: Dr. Ra Doherty M.D. on 08/03/2020 12:29 AM Dictated By: RA DOHERTY MD, MD [id number] Transcribed By: VIKA on 08/03/20 0029 COPY TO: SAV MOELLER MD~ Procedure: [id number] DX/CHEST SINGLE (PORTABLE) Exam Date: 08/02/20 Exam Time: 1512 REPORT STATUS: Signed EXAMINATION: CHEST SINGLE (PORTABLE) INDICATION: BRADYCARDIA COMPARISON: Radiograph dated 07/10/2020. FINDINGS: LUNGS: Strandy bilateral infrahilar opacities, favored represent atelectasis. PLEURA: No pleural effusion or pneumothorax. HEART AND MEDIASTINUM: The cardiomediastinal silhouette is unremarkable. Prominent central pulmonary vessels. IMPRESSION: 1. Cardiomegaly with pulmonary vascular congestion. No overt edema. 2. Strandy bilateral infrahilar opacities are favored represent atelectasis. Signed by: Barbara Ortez MD on 08/03/2020 12:36 AM Dictated By: BARBARA ORTEZ MD Transcribed By: VIKA on 08/03/2035 COPY TO: SAV MOELLER MD~ Procedures 12 Lead ECG Interpretation ECG Interpretation : ECG: ECG 1 Surgical Nurse Practitioner: Interpreted by ED physician Date: Aug 02, 2020 Time: 23:14 Rhythm: sinus bradycardia Rate: bradycardia BPM: 49 QRS axis: normal ST segments normal: No (NON SPECIFIC CHANGES) T waves normal: No (NONSPECIFIC CHANGES) Q waves: III, V1 Clinical Decision Tools NIH Stroke Scale Interval: baselline NIH Stroke Score: NIH Stroke Score Response (Comments) Value Level of Consciousness Alert, Keenly Responsive 0 Level of Consciousness Questions Answers One Correctly 1 Level of Consciousness Commands Performs Both Tasks 0 Lateral Gaze Paresis Normal 0 Visual Field Loss Bilateral Henianopia 3 Facial Palsy Minor Paralysis 1 Motor Left Arm Drift, Does Not Hit Bed 1 Motor Right Arm No Drift, Arm Stays 45/90 0 Motor Left Leg Drift, Does Not Hit Bed 1 Motor Right Leg No Drift, Arm Stays 45/90 0 Limb Ataxia Present in Two Limbs 2 Sensory Loss Mild/Mod Sensory Loss 1 Language Aphasia Mild/Mod Aphasia 1 Dysarthria Mild/Mod Slurs Words 1 Extinction and Inattention No Abnormality 0 Total 12 Baseline increased by 4: No Assessment & Plan Medical Decision Making MDM PT WITH LOW HEART RATE FOR 2 DAYS AND SLURRED SPEECH FOR 2 WEEKS CBC, CMP, CT BRAIN , EKG,UA, CARDIAC ENZYMES ORDERED TO EVAL FOR MYOCARDIAL INFARCTION, CVA, INTRACRANIAL ABNORMALITY, UTI, ELECTROLYTE ABNORMALITY PT WITH HEMORRHAGIC INFARCT WILL NEED TRANSFER TO ANOTHER HOSPITAL I SPOKE WITH DR SHARMA AT [facility], HE ACCEPTS PT FOR TRANSFER Assessment & Plan Final Impression: (1) Hemorrhagic cerebrovascular accident (CVA) (2) Slurred speech (3) Bradycardia (4) Left-sided weakness Depart Disposition: TRANS TO OTHER [facility] FAC[facility] Last Vital Signs Date Time Temp Pulse Resp B/P (MAP) Pulse Ox O2 Delivery O2 Flow Rate FiO2 08/02/20 23:21 45 22 147/58 100 Room Air 08/02/20 23:18 98.2 Home Meds Reported Medications Clopidogrel Bisulfate (CLOPIDOGREL) 75 Mg Tablet, 75 MG PO DAILY, #30 TAB 08/03/20 Apixaban (Eliquis) 5 Mg Tab.ds.pk, 5 MG PO BID 08/03/20 Metoprolol Tartrate (METOPROLOL TARTRATE) 25 Mg Tablet, 25 MG PO BID, TAB 08/03/20 Potassium Chloride (POTASSIUM CHLORIDE) 20 Meq Tab.er.prt, 20 MEQ PO DAILY 08/03/20 Amiodarone Hcl (AMIODARONE HCL) 200 Mg Tablet, 200 MG PO BID 08/03/20 Atorvastatin Calcium (ATORVASTATIN CALCIUM) 20 Mg Tablet, 80 MG PO HS, #30 TAB 08/03/20 Furosemide (FUROSEMIDE) 40 Mg Tablet, 40 MG PO Daily, #30 TAB 08/03/20 Discontinued Reported Medications Metoprolol Succinate (METOPROLOL SUCCINATE) 25 Mg Tab.er.24h 08/03/20 Amlodipine Besylate (AMLODIPINE BESYLATE) 10 Mg Tablet, 10 MG PO DAILY, #30 TAB 05/04/20 Sennosides/Docusate Sodium (Senna-S Laxative Tablet) 1 Each Tablet, 2 PO DAILY PRN for CONSTIPATION 11/18/19 Famotidine (FAMOTIDINE) 20 Mg Tab, 20 MG PO DAILY, #30 TAB 11/14/19 [Iron] No Conflict Check, 65 MG PO DAILY 11/14/19 [Vitamin D] No Conflict Check, 125 MCG PO DAILY 11/14/19 Calcium Carbonate (CALCIUM) 600 Mg Tablet, 600 MG PO DAILY 11/14/19 [tresiba] No Conflict Check, 10 UNITS SQ BID 08/11/19 Aspirin (ASPIR 81) 81 Mg Tablet.dr, 81 MG PO DAILY 08/11/19 Losartan Potassium (LOSARTAN POTASSIUM) 100 Mg Tablet, 100 MG PO DAILY, TAB 12/11/17 SAV MOELLER MD Aug 02, 2020 23:52
[2020-08-03 00:01] LABS: CREATINE KINASE MB 1.2 ng/mL (0-5.0)
[2020-08-03 00:02] LABS: ALBUMIN 3.4 g/dL (3.5-5.0); ALBUMIN/GLOBULIN RATIO 0.7 (0.8-2.0); ANION GAP 14.9 mmol/L (8-16); CALCIUM 8.9 mg/dL (8.4-10.2); CREATININE, SERUM 2.46 mg/dL (0.72-1.25); POTASSIUM 4.9 mmol/L (3.5-5.1)
[2020-08-03] MEDS ORDERED: AMIODARONE HCL200 MG PO (00:31)
[2020-08-03] MEDS ORDERED: METOPROLOL SUCC25 MG (00:31)
[2020-08-03] MEDS ORDERED: ATORVASTATIN CA20 MG PO (00:31)
[2020-08-03] MEDS ORDERED: METOPROLOL TART25 MG PO (00:31)
[2020-08-03] MEDS ORDERED: CLOPIDOGREL75 MG PO (00:31)
[2020-08-03] MEDS ORDERED: FUROSEMIDE40 MG PO (00:31)
[2020-08-03] MEDS ORDERED: ELIQUIS5 M1 PO (00:31)
[2020-08-03] MEDS ORDERED: POTASSIUM CHLO20 ME1 PO (00:31)
--- NOTE | 2020-08-03 00:32 | Diagnostic Imaging Report ---
ADDENDUM #1 An MRI of the brain with and without contrast may be indicated, given the discrepancy of the findings on the CT with the described left weakness on physical exam. Signed by: Dr. Ra Doherty M.D. on 08/03/2020 12:34 AM ORIGINAL REPORT History:Slurred speech Comparison studies: None Technique: Axial images were obtained from the skull base to the vertex. Coronal and sagittal images reconstructed from the axial data. Dose modulation, iterative reconstruction, and/or weight based adjustment of the mA/kV was utilized to reduce the radiation dose to as low as reasonably achievable. Intravenous contrast: None Findings: Scalp/skull: No abnormalities. Extra-axial spaces: No masses. No fluid collections. Brain sulci: Mildly prominent. Ventricles: Mild compensatory dilatation. No hydrocephalus. Parenchyma: An acute cortical vascular insult, which involves the supramarginal and angular gyri of the left inferior parietal lobule and the posterior aspect of the left superior temporal gyrus, is associated with an ill-defined, heterogeneous 1.2 cm hematoma (series 400, image 47, series 2, image 17 and series 401, image 48). Mass effect is regional. No shift. Subtle hypodensities in the supratentorial white matter are small vessel ischemic changes. No masses, hemorrhage, additional acute or chronic cortical vascular insults. Sellar/suprasellar region: No abnormalities. Craniocervical junction: Patent foramen magnum. No Chiari one malformation. Incidental findings: Course calcifications in the intradural vertebral arteries and in the carotid siphons . Impression: 1. An acute, early subacute, cortical, partially hemorrhagic left temporoparietal vascular insult has compromised the corresponding branches of the posterior division of the left middle cerebral artery. 2. No additional acute abnormalities. 3. Dr. Tubbs notified of the findings on 08/03/2020 1224 hours. Chronic findings: 1. Mild age-related generalized volume loss. 2. Mild supratentorial white matter small vessel ischemic changes. Signed by: Dr. Ra Doherty M.D. on 08/03/2020 12:29 AM
--- NOTE | 2020-08-03 00:39 | Diagnostic Imaging Report ---
EXAMINATION: CHEST SINGLE (PORTABLE) INDICATION: BRADYCARDIA COMPARISON: Radiograph dated 07/10/2020. FINDINGS: LUNGS: Strandy bilateral infrahilar opacities, favored represent atelectasis. PLEURA: No pleural effusion or pneumothorax. HEART AND MEDIASTINUM: The cardiomediastinal silhouette is unremarkable. Prominent central pulmonary vessels. IMPRESSION: 1. Cardiomegaly with pulmonary vascular congestion. No overt edema. 2. Strandy bilateral infrahilar opacities are favored represent atelectasis. Signed by: Cesar Narvaez MD on 08/03/2020 12:36 AM
--- NOTE | 2020-08-03 01:08 | NUR ---
[facility]-14 at this time
--- NOTE | 2020-08-03 01:52 | NUR ---
[facility] ETA 45 minutes- 1 hour at this time.
[2020-08-03 02:05] VITALS: BP 116/57
--- NOTE | 2020-08-03 03:09 | NUR ---
[facility] here to transport patient to [place] [id number] Bed
--- OUTSIDE RECORDS SUMMARY | 2020-08-03 10:45 | XMS REPORT | Continuity of Care Document ---
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 Problem 02/2020 Kapil Monae Dependence on supplemental oxygen Active Problem 02/2020 Kapil Monae Adult body mass index 50.0-59.9 Active Problem 02/2020 Kapil Monae DM circ dis type II Active Problem 07/20/2020 Kapil Monae Peripheral angiopathy in diseases classified elsewhere Active Problem 07/20/2020 Kapil Monae Sepsis, due to unspecified organism Active Problem 02/2020 Kapil Monae Closed rib fracture Active Problem 07/20/2020 Kapil Monae Morbid obesity Active Problem 07/20/2020 Kapil Monae Acute cystitis without hematuria Active Problem 02/2020 Kapil Monae MCC (current) use of insulin Active Problem 02/2020 Kapil Monae Cellulitis of unspecified part of limb Active Problem 02/2020 Kapil Monae Routine general medical examination at a health care facility Active Prob gabbie 07/20/2020 Kapil Monae Acute bronchitis Active Problem 07/20/2020 Kapil Monae Cutaneous abscess of limb, unspecified Active Problem 02/2020 Kapil Monae Esophageal reflux Active Problem 07/20/2020 Kapil Monae Edema Active Problem 07/20/2020 Kapil Monae Obstructive chronic bronchitis with exacerbation Active Problem 07/20/2020 Kapil Monae Vitamin D deficiency Active Problem 07/20/2020 Kapil Monae 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 Active Problem 07/20/2020 Kapil Monae 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 Active Prob gabbie 07/20/2020 Kapil Monae Personal history of fall Active Problem 07/20/2020 Kapil Monae Body mass index (BMI) of 45.0-49.9 in adult Active Problem 07/20/2020 Kapil Monae Chronic airway obstruction, not elsewhere classified Active Problem 12/04/2017 Kapil Monae Encounter for immunization Act mikey Diagnosis 1 Kapil Monae Acute upper respiratory infection Active Diagnosis 1 Kapil Monae Abscess of right thigh Active Diagnosis 08/27/2017 Kapil Monae Gastro-esophageal reflux disease without esophagitis Active Problem 07/20/2020 Kapil Monae Flu vaccine need Active Diagnosis 10/06/2018 Kapil Monae 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 Active Problem 11/14/2015 Kapil Monae Morbid obesity Active Problem 11/14/2015 Kapil Monae Obstructive chronic bronchitis with exacerbation Active Problem 11/14/2015 Kapil Monae 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 Problem Kapil Monae Pneumonia, organism unspecified Active Problem Kapil Monae DM neuro manif type II Active Diagnosis 12/27/2019 Kapil Monae Insulin long-term use Active Problem 11/14/2015 Kapil Monae Body mass index (BMI) of 45.0-49.9 in adult Active Problem 11/14/2015 Kapil Monae 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 Active Prob gabbie 11/14/2015 Kapil Monae Edema Active Diagnosis 11/30/2019 Kapil Monae Esophageal reflux Active Problem 11/14/2015 Kapil Monae Vitamin D deficiency Active Problem 11/14/2015 Kapil Monae Closed rib fracture Active Problem 11/14/2015 Kapil Monae Oxygen dependent Active Problem 11/14/2015 Kapil Monae Personal history of fall Active Problem 11/14/2015 Kapil Monae Chronic airway obstruction, not elsewhere classified Active Problem 11/14/2015 Kapil Monae Emphysema lung Active Diagnosis 11/30/2019 Kapil Monae Abnormal gait Active Problem 07/20/2020 Kapil Monae Colonic constipation Active Problem 07/20/2020 Kapil Monae Morbid (severe) obesity due to excess calories Active Problem 07/20/2020 Kapil Monae Cellulitis of left thigh Active Diagnosis 11/30/2019 Kapil Monae Flesh-eating bacteria Active Diagnosis 11/30/2019 Kapil Monae Body mass index (BMI) 36.0-36.9, adult Active Problem 02/2020 Kapil Monae Essential (primary) hypertension Active Problem 02/2020 Kapil Monae Epistaxis Active Diagnosis 03/07/2020 Kapil Monae Acute non-ST elevation myocardial infarction (NSTEMI) Active Problem 07/20/2020 Kapil Monae Pulmonary edema cardiac cause Active Problem 02/2020 Kapil Monae Unstable angina Active Problem 07/20/2020 Kapil Monae Acute respiratory failure with hypoxia Active Diagnosis 07/20/2020 Kapil Monae Abscess of right leg Active Diagnosis 05/10/2020 Kapil Monae Medications Medication Details Route Status Patient Instructions Ordering Provider Order Date Source Amlodipine Besylate 1 tablet Orally Active 10 MG Orally Once a day [facility] 03/26/2020 Kapil Monae Amlodipine Besylate 1 tablet Orally Active 5 MG Orally Once a day [facility] 02/27/2020 Kapil Monae Spironolactone 1 tablet Orally Active 50MG Orally Once a day [facility] 01/05/2020 Kapil Monae One Touch Ultra as directed NA Active Strips [facility] 10/19/2019 Kapil Monae Lactulose 30 ml Orally Active 20 GM/30ML Orally q8 ho urs prn constipation [facility] 10/29/2018 Kapil Monae Lactulose 30 ml Orally Active 10 GM/15ML Orally q8 ho urs prn constipation [facility] 10/29/2018 Kapil Monae Ferrous Sulfate 1 tablet Orally Active 300 (60 Fe) MG Orally O nce a day [facility] 03/26/2018 Kapil Monae Ferrous Sulfate 1 tablet Orally Active 300 (60 Fe) MG Orally O nce a day [facility] 03/26/2018 Kapil Monae Ferrous Sulfate 1 tablet Orally Active 300 (60 Fe) MG Orally O nce a day [facility] 03/26/2018 Kapil Monae Ferrous Sulfate 1 tablet Orally Active 300 (60 Fe) MG Orally O nce a day [facility] 03/26/2018 Kapil Monae Vitamin D-3 1 tablet Orally Active 5000 UNIT Orally Once a day [facility] 02/11/2018 Kapil Monae Vitamin D-3 1 tablet Orally Active 5000 UNIT Orally Once a day [facility] 02/11/2018 Kapil Monae Bactrim DS 1 tablet Orally Active 800-160 MG Orally Twice a day [facility] 08/26/2017 Kapil Monae Bactroban Nasal as directed Nasally Active 2 % Nasally BID [facility] 08/26/2017 Kapil Monae Spiriva HandiHaler 1 capsule Inhalation Active 18 MCG Inhalation Once a day [facility] 06/23/2017 Kapil Monae Aspir-81 1 tablet Orally Active 81 MG Orally Once a day [facility] 06/23/2017 Kapil Monae Spironolactone 1 tablet Orally Active 50 mg Orally Once a day [facility] 06/23/2017 Kapil Monae Bactrim DS 1 tablet Orally Active 800-160 MG Orally Twice a day [facility] 02/16/2017 Kapil Monae Mupirocin apply with q-tip ins genia each nostril Externally Active 2 % Externally twice a day (bid) [facility] 02/16/2017 Kapil Monae Accu-Chek Rachel SmartView as di rected needles and lancets Active w/Device needles and lancets to test once a day [facility] 11/05/2016 Kapil Monae Chrissie Contour Next Monitor as directed NA Active w/ Device [facility] 10/24/2016 Kapil Monae Advair Diskus 1 puff Inhalation Active 500-50 MCG/DOSE Inhalat ion Twice a day [facility] 07/29/2016 Kapil Monae Breo Ellipta 1 puff Inhalation Active 100-25 MCG/INH Inhalati on Once a day [facility] 07/07/2016 Kapil Monae Bactrim DS 1 tablet Orally Active 800-160 MG Orally Twice a day [facility] 07/07/2016 Kapil Monae Accu-Chek Rachel SmartView FSBG BID NA Active 0 as directed [facility] 06/18/2016 Kapil Monae Accu-Chek Rachel SmartView FSBG BID NA Active 0 as directed [facility] 06/18/2016 Kapil Monae Lantus SoloStar 60u Subcutaneous Active 100 UNIT/ML Subcutaneou s once a day [facility] 05/12/2016 Kapil Petersxbmariia Lantus SoloStar 60u Subcutaneous Active 100 UNIT/ML Subcutaneou s once a day [facility] 05/12/2016 Kapil Monae GuaiFENesin DM 10 ml as needed Orally Active 10-100 MG/5ML Orally every 4 hrs for cough [facility] 01/03/2016 Kapil Monae Zithromax Z-Simone 2 tablets on the first day, then 1 tablet daily for 4 days Orally Active 250 MG Orally Once a day [facility] 01/03/2016 Kapil Monae Diltiazem HCl ER 1 tablet at t he same time each day Orally Active 240 MG Orally Once a day [facility] Kapil Monae Omeprazole 1 capsule Orally Active 20 mg Orally twice a da y (bid) [facility] Kapil Monae Lantus 60u S ubcutaneous Active 100 UNIT/ML Subcutaneou s daily [facility] Kapil Monae Lantus 60u S ubcutaneous Active 100U/ML Subcutaneous da river [facility] Jesse hadelia Parr [facility] NovoFine USE PEN NEEDLE(S) WIT H INSULIN PEN(S) 2 TO 3 TIMES A DAY. (USE A NEW PEN NEEDLE EACH TIME) SQ Active 30G X 8 MM SQ every day (qd) [facility] Kapil Monae Famotidine 2 tablet Orally Active 20 MG Orally Take 2 tab lets in the morning before breakfast [facility] Kapil Monae GuaiFENesin DM 10 ml as needed Orally Active 10-100 MG/5ML Orally every 4 hrs for cough [facility] Kapil Monae Losartan Potassium 1 tablet Orally Active 100 mg Orally Once a day [facility]ux[facility]auhermilo Monae Spironolactone 1 tablet Orally Active 50MG Orally Once a day Dov Monae Carvedilol 1 tablet with food Orally Active 25 MG Orally Twice a day [facility]ov [facility] Hydrochlorothiazide 1 tablet Orally Active 50 MG Orally Once a day [facility]ov [facility] Diltiazem HCl ER Beads TAKE 1 CAPSULE ONCE DAILY AT THE SAME TIME EACH DAY NA Active 240MG/24 Dov Monae Chrissie Microlet Lancets TEST EV DIONICIO DAY DIRECTED BY DOCTOR RACHEL Active - Dov Monae MetFORMIN HCl ER 2 tablet with evening meal Orally Active 500 MG Orally twice a day (bid) Dov Monae Chrissie Contour Next Test TEST E VERY DIRECTED BY DOCTOR RACHEL Active - Dov Monae Vitamin D-3 1 tablet Orally Active 5000 UNIT Orally Once a day Dov Monae Tresiba FlexTouch 10u Subcutaneous Active 100 UNIT/ML Subcutaneous twice a day (bid) as needed (prn) Dov Monae Mupirocin 1 application to aff ected area Externally Active 2 % Externally Three times a day Dov Monae Aspirin 81 1 tablet Orally Active 81 MG Orally Once a day [facility] Santosm Petrolatum not defined Externally Active - Externally Dov Monae HydrALAZINE HCl 1 tablet with food Orally Active 100 mg Orally daily Dov Monae NIFEdipine ER 1 tablet on an e mpty stomach Orally Active 60 MG Orally Once a day Dov [facility]ae Carvedilol 1 tablet with food Orally Active 25 MG Orally Twice a day Dov [facility] MetFORMIN HCl ER 2 tablet with evening meal Orally Active 500 MG Orally twice a day (bid) Dov Monae Hydrochlorothiazide 2 tablet Orally Active 25 MG Orally Once a day Dov Monae Furosemide 1 tablet Orally Active 40 MG Orally Once a day [facility] Jesse hael E [facility] Losartan Potassium 1 tablet an d a half tablet Orally Active 100MG Orally Once a day [facility]ie Monae Spironolactone 1 tablet Orally Active 50 MG Orally Once a day Bux[facility]ia Petersxbmariia Vitamin D-3 Unknown Orally Active 5000 UNIT Orally [facility] Jesse hael E [facility] Aspir-81 1 tablet Orally Active 81 MG Orally Once a day [facility] Jesse hael E [facility] Diltiazem HCl ER 1 tablet at t he same time each day Orally Active 240 MG Orally Once a day [facility] Kapil Petersxbmariia Famotidine 2 tablet Orally Active 20 MG Orally Take 2 tab lets in the morning before breakfast [facility]um[facility]ie Monae Spiriva HandiHaler 1 capsule Inhalation Active 18 MCG Inhalation Once a day [facility]ie Monae Lantus 60u S ubcutaneous Active 100 UNIT/ML Subcutaneou s daily [facility]ia Monae Omeprazole 1 capsule Orally Active 20 MG Orally Once a day Dov Monae Omeprazole 1 capsule Orally Active 20 mg Orally Once a day Bumaddie Monae Famotidine TAKE 2 TABLETS EVER Y MORNING BEFORE BREAKFAST NA Active 20 MG [facility]ia Monae Hydrochlorothiazide 1 tablet Orally Active 50 mg Orally Once a day Dov Monae Linezolid 1 tablet Orally Active 600 MG Orally every 12 hrs [place] Dick E Franxbmariia Vitamin D not defined NA Active Bux[facility] mariia Monae Metoclopramide HCl 1 tablet be fore meals Orally Active 5 MG Orally Twice a day Dov Monae Hydrocodone-Acetaminophen 1 ta blet as needed Orally Active 5-325 MG Orally every 6 hrs Franxbmariia Monae Pantoprazole Sodium 1 tablet Orally Active 40 MG Orally Once a day Bux[facility]ia Monae Iron 1 tablet Orally Active 65 MG Orally Once a day Buxbauhermilo nolan E [facility] Calcium 1 tablet with meals Orally Active 600 MG Orally Twice a day Bux[facility]ia Dick E Franxbmariia Hydrochlorothiazide 1 tablet Orally Active 50 MG Orally Once a day Franxbmariia Monae Ciprofloxacin 1 tablet Orally Active 500 MG Orally twice a d ay (bid) [facility] Kapil E [facility] Omeprazole 1 capsule Orally Active 40 MG Orally twice a da y (bid) [facility] Kapil Parr [facility] Magnesium Oxide 1 tablet with food Orally Active 400 MG Orally twice a day (bid) [facility] Kapil Parr [facility] Sennosides-Docusate Sodium 1 t ablet Orally Active 8.6-50 MG Orally twice a day (bid) [facility] Kapil E [facility] Diltiazem HCl ER 1 tablet at t he same time each day Orally Active 240 MG Orally Once a day [facility] Kapil E [facility] Vitamin D not defined NA Active [facility]um Kapil E [facility] Iron 1 tablet Orally Active 65 MG Orally Once a day [facility] Jesse hael E [facility] Lasix 1 tablet Orally Active 40 MG Orally Once a day [facility] Jesse hael E [facility] Clindamycin HCl 2 capsules Orally Active 300 MG Orally every 8 hrs [facility] Kapil Parr [facility] Eliquis as directed Orally Active 5 MG Orally twice a day (bid) [facility] Kapil Parr [facility] Tramadol-Acetaminophen 2 table ts as needed Orally Active 37.5-325 MG Orally every 6 hrs [facility] Kapil Parr [facility] Metoprolol Tartrate 1 tablet w ith food Orally Active 25 MG Orally Twice a day [facility] Kapil Parr [facility] Lipitor 1 tablet Orally Active 80 MG Orally Once a day [facility] Jesse hael E [facility] Plavix 1 tablet Orally Active 75 MG Orally Once a day [facility] Jesse hael E [facility] Potassium Chloride 1 tablet wi th food Orally Active 20 MEQ Orally Once a day [facility] Kapil E [facility] Senna S 1 tablet in the evenin g as needed Orally Active 8.6-50 MG Orally Once a day [facility] Kapil E [facility] Amiodarone HCl 1 tablet Orally Active 200 MG Orally twice a d ay (bid) [facility] Kapil Parr [facility] Sulfamethoxazole-TMP DS not de fined NA Active [facility] Jesse hael E [facility] Allergies, Adverse Reactions, Alerts Substance Category Reaction Severity Reaction type Status Date Reported Comments Source penicillin Adverse Reaction Info Not Available Adverse Reaction Active 03/26/2018 Kapil Parr [facility] Codeine Sulfate Adverse Reacti on Info Not Available Adverse Reaction Active 07/19/2020 Kapil E [facility] Immunizations Immunization Date Given Site Status Last Updated Comments Source Flu Vaccine - Medicare 018 completed Kapil E [facility] Flu Vaccine - Medicare 017 completed [facility] Flu Vaccine - Medicare 016 completed Kapil E [facility] Results No Data Provided for This Section Pathology Reports No Data Provided for This Section Diagnostic Reports No Data Provided for This Section Consultation Notes No Data Provided for This Section Discharge Summaries No Data Provided for This Section History and Physicals No Data Provided for This Section Vital Signs Vital Sign Value Date Comments Source Weight 285 07/19/2020 Kapil E [facility] Height 71 0 07/19/2020 Kapil E [facility] Temperature Oral (F) 97.1 F 07/19/2020 Kapil E [facility] Heart Rate 78 07/19/2020 Kapil E [facility] Diastolic (mm Hg) 52 07/19/2020 Kapil E [facility] Systolic (mm Hg) 106 07/19/2020 Kapil E [facility] Weight 265 05/09/2020 Kapil E [facility] Height 71 0 05/09/2020 Kapil E [facility] Heart Rate 72 05/09/2020 Kapil E [facility] Diastolic (mm Hg) 68 05/09/2020 Kapil E [facility] Systolic (mm Hg) 137 05/09/2020 Kapil E [facility] Weight 265 03/06/2020 Kapil E [facility] Height 71 0 03/06/2020 Kapil E [facility] Temperature Oral (F) 98.3 F 03/06/2020 Kapil E [facility] Heart Rate 70 03/06/2020 Kapil E [facility] Diastolic (mm Hg) 76 03/06/2020 Kapil E [facility] Systolic (mm Hg) 158 03/06/2020 Kapil E [facility] Weight 265 02/27/2020 Kapil E [facility] Height 71 0 02/27/2020 Kapil E [facility] Heart Rate 70 02/27/2020 Kapil E [facility] Diastolic (mm Hg) 76 02/27/2020 Kapil E [facility] Systolic (mm Hg) 158 02/27/2020 Kapil E [facility] Weight 265 11/28/2019 Kapil E [facility] Height 71 0 11/28/2019 Kapil E [facility] Temperature Oral (F) 98.3 F 11/28/2019 Kapil E [facility] Heart Rate 64 11/28/2019 Kapil E [facility] Diastolic (mm Hg) 60 11/28/2019 Kapil E [facility] Systolic (mm Hg) 102 11/28/2019 Kapil E [facility] Weight 267.4 10/18/2019 Kapil E [facility] Height 71 1 12/19/2018 Kapil E [facility] Temperature Oral (F) 97.1 F 10/18/2019 Kapil E [facility] Heart Rate 64 10/18/2019 Kapil E [facility] Diastolic (mm Hg) 82 10/18/2019 Kapil E [facility] Systolic (mm Hg) 126 10/18/2019 Kapil E [facility] Weight 314.6 06/24/2019 Kapil E [facility] Height 71 0 06/24/2019 Kapil E [facility] Temperature Oral (F) 96.8 F 06/24/2019 Kapil E [facility] Heart Rate 64 06/24/2019 Kapil E [facility] Diastolic (mm Hg) 84 06/24/2019 Kapil E [facility] Systolic (mm Hg) 142 06/24/2019 Kapil E [facility] Weight 335.2 12/15/2018 Kapil E [facility] Height 71 0 12/15/2018 Kapil E [facility] Temperature Oral (F) 96.6 F 12/15/2018 Kapil E [facility] Diastolic (mm Hg) 82 12/15/2018 Kapil E [facility] Systolic (mm Hg) 138 12/15/2018 Kapil E [facility] Weight 342 10/04/2018 Kapil E [facility] Height 71 1 12/04/2017 Kapli E [facility] Temperature Oral (F) 96.4 F 10/04/2018 Kapil E [facility] Heart Rate 62 10/04/2018 Kapli E [facility] Diastolic (mm Hg) 86 10/04/2018 Kapil E [facility] Systolic (mm Hg) 132 10/04/2018 Kapil E [facility] Weight 340 03/26/2018 Kapil E [facility] Height 71 0 03/26/2018 Kapil E [facility] Temperature Oral (F) 97.4 F 03/26/2018 Kapil E [facility] Heart Rate 64 03/26/2018 Kapil E [facility] Diastolic (mm Hg) 58 03/26/2018 Kapil E [facility] Systolic (mm Hg) 130 03/26/2018 Kapil E [facility] Weight 361 12/22/2017 Kapil E [facility] Height 71 0 12/22/2017 Kapil E [facility] Temperature Oral (F) 97.8 F 12/22/2017 Kapil E [facility] Heart Rate 60 12/22/2017 Kapil E [facility] Diastolic (mm Hg) 54 12/22/2017 Kapil E [facility] Systolic (mm Hg) 152 12/22/2017 Kapil E [facility] Weight 374 08/26/2017 Kapil E [facility] Height 71 1 Kapil E [facility] Temperature Oral (F) 97.8 F 08/26/2017 Kapil E [facility] Heart Rate 66 08/26/2017 Kapil E [facility] Diastolic (mm Hg) 74 08/26/2017 Kapil E [facility] Systolic (mm Hg) 132 08/26/2017 Kapil E [facility] Weight 375 02/16/2017 Kapil E [facility] Height 71 0 02/16/2017 Kapil E [facility] Temperature Oral (F) 96.8 F 02/16/2017 Kapil E [facility] Heart Rate 62 02/16/2017 Kapil E [facility] Diastolic (mm Hg) 62 02/16/2017 Kapil E [facility] Systolic (mm Hg) 127 02/16/2017 Kapil E [facility] Weight 350 07/07/2016 Kapil E [facility] Height 71 0 07/07/2016 Kapil E [facility] Temperature Oral (F) 96.2 F 07/07/2016 Kapil E [facility] Heart Rate 68 07/07/2016 Kapil E [facility] Diastolic (mm Hg) 62 07/07/2016 Kapil E [facility] Systolic (mm Hg) 134 07/07/2016 Kapil E [facility] Weight 370 01/01/2016 Kapil E [facility] Height 71 0 01/01/2016 Kapil E [facility] Temperature Oral (F) 97.2 F 01/01/2016 Kapil E [facility] Heart Rate 66 01/01/2016 Kapil E [facility] Diastolic (mm Hg) 64 01/01/2016 Kapil E [facility] Systolic (mm Hg) 138 01/01/2016 Kapil Parr Franmaddie Weight 350 07/20/2015 Kapil Parr Daniellehermilo Height 71 0 07/20/2015 Kapil Monae Temperature Oral (F) 97.7 F 07/20/2015 Kapil Parr Franmaddie Heart Rate 68 07/20/2015 Kapil Parr Franmaddie Diastolic (mm Hg) 86 07/20/2015 Kapil Parr Franlexveritohermilo Systolic (mm Hg) 136 07/20/2015 Kapil Parr Dov Encounters Location Location Details Encounter Type Encounter Number Reason For Visit Attending Provider ADM Date DC Date Status Source Kapil Monae DO, PA Unknown [id number] 07/20/20 15 07/20/2015 Kapil Monae DO, PA Unknown [id number] 07/20/20 15 07/20/2015 Kapil Monae DO, PA Unknown [id number] 07/20/20 15 07/20/2015 Kapil Monae DO, PA Unknown [id number] 07/20/20 15 07/20/2015 Kapil Monae DO, PA Unknown [id number] 07/20/20 15 07/20/2015 Kapil Monae DO, PA Unknown [id number] 07/20/20 15 07/20/2015 Kapil Monae DO, PA Unknown [id number] 07/20/20 15 07/20/2015 Kapil Monae DO, PA Unknown [id number] 07/20/20 15 07/20/2015 Kapil Monae DO, PA Unknown [id number] 07/20/20 15 07/20/2015 Kapil Monae DO, PA Unknown [id number] 07/20/20 15 07/20/2015 Kapil Monae DO, PA Unknown [id number] 07/20/20 15 07/20/2015 Kapil Monae DO, PA Unknown [id number] 07/20/20 15 07/20/2015 Kapil Monae DO, PA Unknown [id number] 07/20/20 15 07/20/2015 Kapil Monae DO, PA Unknown [id number] 07/20/20 15 07/20/2015 aKpil Monae DO, PA Unknown [id number] 07/20/20 15 07/20/2015 Kapil Monae DO, PA Unknown [id number] 07/20/20 15 07/20/2015 Kapil Monae DO, PA Unknown [id number] 07/20/20 15 07/20/2015 Kapil Monae DO, PA Unknown [id number] 07/20/20 15 07/20/2015 Kapil Monae DO, PA Unknown [id number] 07/20/20 15 07/20/2015 Kapil Monae DO, PA Unknown [id number] 07/20/20 15 07/20/2015 Kapil Monae DO, PA Unknown [id number] 07/20/20 15 07/20/2015 Kapil Monae DO, PA Unknown [id number] 07/20/20 15 07/20/2015 Kapil Monae DO, PA Refill [id number] 09/11/20 15 09/11/2015 Kapil Monae DO, PA Refill [id number] 09/11/20 15 09/11/2015 Kapil Monae DO, PA Refill [id number] 09/11/20 15 09/11/2015 Kapil Monae DO, PA Refill [id number] 09/11/20 15 09/11/2015 Kapil Monae DO PA Refill [id number] 09/11/20 15 09/11/2015 Kapil Monae DO, PA Refill [id number] 09/11/20 15 09/11/2015 Kapil Monae DO, PA Refill [id number] 09/11/20 15 09/11/2015 Kapil Monae DO, PA Refill [id number] 09/11/20 15 09/11/2015 Kapil Monae DO, PA Refill [id number] 09/11/20 15 09/11/2015 Kapil Monae DO, PA Refill [id number] 09/11/20 15 09/11/2015 Kapil Monae DO, PA Refill [id number] 09/11/20 15 09/11/2015 Kapil Monae DO, PA Refill [id number] 09/11/20 15 09/11/2015 Kapil Monae DO, PA Refill [id number] 09/11/20 15 09/11/2015 Kapil Monae DO, PA Refill [id number] 09/11/20 15 09/11/2015 Kapil Monae DO, PA Refill [id number] 09/11/20 15 09/11/2015 Kapil Monae DO, PA Refill [id number] 09/11/20 15 09/11/2015 Kapil Monae DO, PA Refill [id number] 09/11/20 15 09/11/2015 Kapil Monae DO, PA Refill [id number] 09/11/20 15 09/11/2015 Kapil Monae DO, PA Refill [id number] 09/11/20 15 09/11/2015 Kapil Monae DO, PA Refill [id number] 09/11/20 15 09/11/2015 Kapil Monae DO, PA Refill [id number] 09/11/20 15 09/11/2015 Kapil Monae DO, PA Unknown [id number] 09/24/20 15 09/24/2015 Kapil Monae DO, PA Unknown [id number] 09/24/20 15 09/24/2015 Kapil Monae DO, PA Unknown [id number] 09/24/20 15 09/24/2015 Kapil Monae DO PA Unknown [id number] 09/24/20 15 09/24/2015 Kapil Dick KeshavHill Monae DO, PA Unknown [id number] 09/24/20 15 09/24/2015 Kapil Monae DO, PA Unknown [id number] 09/24/20 15 09/24/2015 Kapil Monae DO, PA Unknown [id number] 09/24/20 15 09/24/2015 Kapil Monae DO, PA Unknown [id number] 09/24/20 15 09/24/2015 Kapil Monae DO, PA Unknown [id number] 09/24/20 15 09/24/2015 Kapil Monae DO, PA Unknown [id number] 09/24/20 15 09/24/2015 Kapil Monae DO, PA Unknown [id number] 09/24/20 15 09/24/2015 Kapil Monae DO, PA Unknown [id number] 09/24/20 15 09/24/2015 Kapil Monae DO, PA Unknown [id number] 09/24/20 15 09/24/2015 Kapil Monae DO PA Requesting Records [id number] 09/24/2015 09/24/2015 Kapil Monae DO [place] Requesting Records [id number] 09/24/2015 09/24/2015 Kapil Monae DO PA Requesting Records [id number] 09/24/2015 09/24/2015 Kapil Monae DO, PA Requesting Records [id number] 09/24/2015 09/24/2015 Kapil Monae DO, PA Requesting Records [id number] 09/24/2015 09/24/2015 Kapil Monae DO, PA Requesting Records [id number] 09/24/2015 09/24/2015 Kapil Monae DO PA Requesting Records [id number] 09/24/2015 09/24/2015 Kapil Monae DO PA Requesting Records [id number] 09/24/2015 09/24/2015 Kapil Monae DO PA Requesting Records [id number] 09/24/2015 09/24/2015 Kapil Monae DO PA Requesting Records [id number] 09/24/2015 09/24/2015 Kapil Monae DO, PA Requesting Records [id number] 09/24/2015 09/24/2015 Kapil Monae DO, PA Requesting Records [id number] 09/24/2015 09/24/2015 Kapil Monae DO, PA Requesting Records [id number] 09/24/2015 09/24/2015 Kapil Monae DO, PA Unknown [id number] 09/24/20 15 09/24/2015 Kapil Monae DO, PA Unknown [id number] 09/24/20 15 09/24/2015 Kapil Monae DO, PA Unknown [id number] 09/24/20 15 09/24/2015 Kapil Monae DO, PA Unknown [id number] 09/24/20 15 09/24/2015 Kapil Monae DO, PA Unknown [id number] 09/24/20 15 09/24/2015 Kapil Monae DO, PA Unknown [id number] 09/24/20 15 09/24/2015 Kapil Monae DO, PA Unknown [id number] 09/24/20 15 09/24/2015 Kapil Monae DO, PA Unknown [id number] 09/24/20 15 09/24/2015 Kapil Monae DO, PA Requesting Records [id number] 09/24/2015 09/24/2015 Kapil Monae DO, PA Requesting Records [id number] 09/24/2015 09/24/2015 Kapil Monae DO, PA Requesting Records [id number] 09/24/2015 09/24/2015 Kapil Monae DO, PA Requesting Records [id number] 09/24/2015 09/24/2015 Kapil Monae DO PA Requesting Records [id number] 09/24/2015 09/24/2015 Kapil Monae DO, PA Requesting Records [id number] 09/24/2015 09/24/2015 Kapil Monae DO PA Requesting Records [id number] 09/24/2015 09/24/2015 Kapil Monae DO PA Requesting Records [id number] 09/24/2015 09/24/2015 Kapil Hwangaum, DO, PA Refill [id number] 11/12/20 15 11/12/2015 Kapil Monae DO, PA Refill [id number] 11/12/20 15 11/12/2015 Kapil Monae DO, PA Refill [id number] 11/12/20 15 11/12/2015 Kapil Monae DO, PA Refill [id number] 11/12/20 15 11/12/2015 Kapil Monae DO, PA Refill [id number] 11/12/20 15 11/12/2015 Kapil Monae DO, PA Refill [id number] 11/12/20 15 11/12/2015 Kapil Monae DO, PA Refill [id number] 11/12/20 15 11/12/2015 Kapil Monae DO, PA Refill [id number] 11/12/20 15 11/12/2015 Kapil Monae DO, PA Refill [id number] 11/12/20 15 11/12/2015 Kapil Monae DO, PA Refill [id number] 11/12/20 15 11/12/2015 Kapil Monae DO, PA Refill [id number] 11/12/20 15 11/12/2015 Kapil Monae DO, PA Refill [id number] 11/12/20 15 11/12/2015 Kapil Monae DO, PA Refill [id number] 11/12/20 15 11/12/2015 Kapil Monae DO, PA Refill [id number] 11/12/20 15 11/12/2015 Kapil Monae DO, PA Refill [id number] 11/12/20 15 11/12/2015 Kapil Monae DO, PA Refill [id number] 11/12/20 15 11/12/2015 Kapil Monae DO, PA Refill [id number] 11/12/20 15 11/12/2015 Kapil Monae DO, PA Refill [id number] 11/12/20 15 11/12/2015 Kapil Monae DO, PA Refill [id number] 11/12/20 15 11/12/2015 Kapil Monae DO, PA Unknown [id number] 01/01/20 16 01/01/2016 Kapil Monae DO, PA Unknown [id number] 01/01/20 16 01/01/2016 Kapil Monae DO, PA Unknown [id number] 01/01/20 16 01/01/2016 Kapil Monae DO, PA Unknown [id number] 01/01/20 16 01/01/2016 Kapil Monae DO, PA Unknown [id number] 01/01/20 16 01/01/2016 Kapil Monae DO, PA Unknown [id number] 01/01/20 16 01/01/2016 Kapil Monae DO, PA Unknown [id number] 01/01/20 16 01/01/2016 Kapil Monae DO, PA Unknown [id number] 01/01/20 16 01/01/2016 Kapil Monae DO, PA Unknown [id number] 01/01/20 16 01/01/2016 Kapil Monae DO, PA Unknown [id number] 01/01/20 16 01/01/2016 Kapil Monae DO, PA Unknown [id number] 01/01/20 16 01/01/2016 Kapil Monae DO, PA Unknown [id number] 01/01/20 16 01/01/2016 Kapil Monae DO, PA Unknown [id number] 01/01/20 16 01/01/2016 Kapil Monae DO, PA Unknown [id number] 01/01/20 16 01/01/2016 Kapil Monae DO, PA Unknown [id number] 01/01/20 16 01/01/2016 Kapil Monae DO, PA Unknown [id number] 01/01/20 16 01/01/2016 Kapil Monae DO, PA Unknown [id number] 01/01/20 16 01/01/2016 Kapil Monae DO, PA Unknown [id number] 01/01/20 16 01/01/2016 Kapil Monae DO PA request for medication [id number] 01/03/2016 01/03/2016 Kapil Monae DO PA request for medication [id number] 01/03/2016 01/03/2016 Kapil Monae DO PA request for medication [id number] 01/03/2016 01/03/2016 Kapil Monae DO PA request for medication [id number] 01/03/2016 01/03/2016 Kapil Monae DO PA request for medication [id number] 01/03/2016 01/03/2016 Kapil Monae DO PA request for medication [id number] 01/03/2016 01/03/2016 Kapil Monae DO PA request for medication [id number] 01/03/2016 01/03/2016 Kapil Monae DO PA request for medication [id number] 01/03/2016 01/03/2016 Kapil Monae DO PA request for medication [id number] 01/03/2016 01/03/2016 Kapil Monae DO PA request for medication [id number] 01/03/2016 01/03/2016 Kapil Monae DO PA request for medication [id number] 01/03/2016 01/03/2016 Kapil Monae DO PA request for medication [id number] 01/03/2016 01/03/2016 Kapil Monae DO PA request for medication [id number] 01/03/2016 01/03/2016 Kapil Monae DO PA request for medication [id number] 01/03/2016 01/03/2016 Kapil Monae DO, PA request for medication [id number] 01/03/2016 01/03/2016 Kapil Monae DO PA request for medication [id number] 01/03/2016 01/03/2016 Kapil Monae DO PA request for medication [id number] 01/03/2016 01/03/2016 Kapil Monae DO PA Refill [id number] 01/25/20 16 01/25/2016 Kapil Monae DO PA Refill [id number] 01/25/20 16 01/25/2016 Kapil Monae DO PA Refill [id number] 01/25/20 16 01/25/2016 Kapil Monae DO PA Refill [id number] 01/25/20 16 01/25/2016 Kapil Monae DO, PA Refill [id number] 01/25/20 16 01/25/2016 Kapil Monae DO, PA Refill [id number] 01/25/20 16 01/25/2016 Kapil Monae DO, PA Refill [id number] 01/25/20 16 01/25/2016 Kapil Monae DO, PA Refill [id number] 01/25/20 16 01/25/2016 Kapil Monae DO, PA Refill [id number] 01/25/20 16 01/25/2016 Kapil Monae DO, PA Refill [id number] 01/25/20 16 01/25/2016 Kapil Monae DO, PA Refill [id number] 01/25/20 16 01/25/2016 Kapil Monae DO, PA Refill [id number] 01/25/20 16 01/25/2016 Kapil Monae DO, PA Refill [id number] 01/25/20 16 01/25/2016 Kapil Monae DO, PA Refill [id number] 01/25/20 16 01/25/2016 Kapil Monae DO, PA Refill [id number] 01/25/20 16 01/25/2016 Kapil Monae DO, PA Refill [id number] 01/25/20 16 01/25/2016 Kapil Monae DO PA refill meds [id number] 03/24/20 16 03/24/2016 Kapil Monae DO, PA refill meds [id number] 03/24/20 16 03/24/2016 Kapil Monae DO PA refill meds [id number] 03/24/20 16 03/24/2016 Kapil Monae DO, PA refill meds [id number] 03/24/20 16 03/24/2016 Kapil Monae DO PA refill meds [id number] 03/24/20 16 03/24/2016 Kapil Monae DO PA refill meds [id number] 03/24/20 16 03/24/2016 Kapil Monae DO PA refill meds [id number] 03/24/20 16 03/24/2016 Kapil Monae DO, PA refill meds [id number] 03/24/20 16 03/24/2016 Kapil Monae DO, PA refill meds [id number] 03/24/20 16 03/24/2016 Kapil Monae DO, PA refill meds [id number] 03/24/20 16 03/24/2016 Kapil Monae DO, PA refill meds [id number] 03/24/20 16 03/24/2016 Kapil Monae DO, PA refill meds [id number] 03/24/20 16 03/24/2016 Kapil Monae DO, PA refill meds [id number] 03/24/20 16 03/24/2016 Kapil Monae DO, PA refill meds [id number] 03/24/20 16 03/24/2016 Kapil Monae DO, PA refill meds [id number] 03/24/20 16 03/24/2016 Kapil Monae DO, PA Refill [id number] 04/07/20 16 04/07/2016 Kapil Monae DO, PA Refill [id number] 04/07/20 16 04/07/2016 Kapil Monae DO, PA Refill [id number] 04/07/20 16 04/07/2016 Kapil Monae DO, PA Refill [id number] 04/07/20 16 04/07/2016 Kapil Monae DO, PA Refill [id number] 04/07/20 16 04/07/2016 Kapil Monae DO, PA Refill [id number] 04/07/20 16 04/07/2016 Kapil Monae DO, PA Refill [id number] 04/07/20 16 04/07/2016 Kapil Monae DO, PA Refill [id number] 04/07/20 16 04/07/2016 Kapil Monae DO, PA Refill [id number] 04/07/20 16 04/07/2016 Kapil Monae DO, PA Refill [id number] 04/07/20 16 04/07/2016 Kapil Monae DO, PA Refill [id number] 04/07/20 16 04/07/2016 Kapil Monae DO, PA Refill [id number] 04/07/20 16 04/07/2016 Kapil Monae DO, PA Refill [id number] 04/07/20 16 04/07/2016 Kapil Monae DO, PA Refill [id number] 04/07/20 16 04/07/2016 Kapil Monae DO, PA Unknown [id number] 05/12/20 16 05/12/2016 Kapil Monae DO, PA Unknown [id number] 05/12/20 16 05/12/2016 Kapil Monae DO, PA Unknown [id number] 05/12/20 16 05/12/2016 Kapil Monae DO, PA Unknown [id number] 05/12/20 16 05/12/2016 Kapil Monae DO, PA Unknown [id number] 05/12/20 16 05/12/2016 Kapil Monae DO, PA Unknown [id number] 05/12/20 16 05/12/2016 Kapil Monae DO, PA Unknown [id number] 05/12/20 16 05/12/2016 Kapil Monae DO, PA Unknown [id number] 05/12/20 16 05/12/2016 Kapil Monae DO, PA Unknown [id number] 05/12/20 16 05/12/2016 Kapil Monae DO, PA Unknown [id number] 05/12/20 16 05/12/2016 Kapil Monae DO, PA Unknown [id number] 05/12/20 16 05/12/2016 Kapil Monae DO, PA Unknown [id number] 05/12/20 16 05/12/2016 Kapil Monae DO, PA Unknown [id number] 05/12/20 16 05/12/2016 Kapil Monae DO, PA Refill [id number] 05/20/20 16 05/20/2016 Kapil Monae DO, PA Refill [id number] 05/20/20 16 05/20/2016 Kapil Monae DO, PA Refill [id number] 05/20/20 16 05/20/2016 Kapil Monae DO, PA Refill [id number] 05/20/20 16 05/20/2016 Kapil Monae DO, PA Refill [id number] 05/20/20 16 05/20/2016 Kapil Monae DO, PA Refill [id number] 05/20/20 16 05/20/2016 Kapil Monae DO, PA Refill [id number] 05/20/20 16 05/20/2016 Kapil Monae DO, PA Refill [id number] 05/20/20 16 05/20/2016 Kapil Monae DO, PA Refill [id number] 05/20/20 16 05/20/2016 Kapil Monae DO, PA Refill [id number] 05/20/20 16 05/20/2016 Kapil Monae DO, PA Refill [id number] 05/20/20 16 05/20/2016 Kapil Monae DO, PA Refill [id number] 05/20/20 16 05/20/2016 Kapil Monae DO, PA Refill meds [id number] 05/26/20 16 05/26/2016 Kapil Monae DO PA Refill meds [id number] 05/26/20 16 05/26/2016 Kapil Monae DO PA Refill meds [id number] 05/26/20 16 05/26/2016 Kapil Monae DO PA Refill meds [id number] 05/26/20 16 05/26/2016 Kapil Monae DO PA Refill meds [id number] 05/26/20 16 05/26/2016 Kapil Monae DO PA Refill meds [id number] 05/26/20 16 05/26/2016 Kapil Monae DO PA Refill meds [id number] 05/26/20 16 05/26/2016 Kapil Monae DO PA Refill meds [id number] 05/26/20 16 05/26/2016 Kapil Mnoae DO PA Refill meds [id number] 05/26/20 16 05/26/2016 Kapil Monae DO PA refill meds [id number] 05/26/20 16 05/26/2016 Kapil Monae DO, PA refill meds [id number] 05/26/20 16 05/26/2016 Kapil Monae DO, PA refill meds [id number] 05/26/20 16 05/26/2016 Kapil Monae DO, PA refill meds [id number] 05/26/20 16 05/26/2016 Kapil Monae DO, PA refill meds [id number] 05/26/20 16 05/26/2016 Kapil Monae DO, PA refill meds [id number] 05/26/20 16 05/26/2016 Kapil Monae DO, PA refill meds [id number] 05/26/20 16 05/26/2016 Kapil Monae DO, PA refill meds [id number] 05/26/20 16 05/26/2016 Kapil Monae DO, PA Refill meds [id number] 05/26/20 16 05/26/2016 Kapil Monae DO, PA Refill meds [id number] 05/26/20 16 05/26/2016 Kapil Monae DO PA refill meds [id number] 05/26/20 16 05/26/2016 Kapil Monae DO, PA refill meds [id number] 05/26/20 16 05/26/2016 Kapil Monae DO, PA Refill [id number] 06/17/20 16 06/17/2016 Kapil Monae DO, PA Refill [id number] 06/17/20 16 06/17/2016 Kapil Monae DO, PA Refill [id number] 06/17/20 16 06/17/2016 Kapil Monae DO, PA Refill [id number] 06/17/20 16 06/17/2016 Kapil Monae DO, PA Refill [id number] 06/17/20 16 06/17/2016 Kapil Monae DO, PA Refill [id number] 06/17/20 16 06/17/2016 Kapil Monae DO, PA Refill [id number] 06/17/20 16 06/17/2016 Kapil Monae DO, PA Refill [id number] 06/17/20 16 06/17/2016 Kapil Monae DO, PA Refill [id number] 06/17/20 16 06/17/2016 Kapil Monae DO, PA Refill [id number] 06/27/20 16 06/27/2016 Kapil Monae DO, PA Refill [id number] 06/27/20 16 06/27/2016 Kapil Monae DO, PA Refill [id number] 06/27/20 16 06/27/2016 Kapil Monae DO, PA Refill [id number] 06/27/20 16 06/27/2016 Kapil Monae DO, PA Refill [id number] 06/27/20 16 06/27/2016 Kapil Monae DO, PA Refill [id number] 06/27/20 16 06/27/2016 Kapil Monae DO, PA Refill [id number] 06/27/20 16 06/27/2016 Kapil Monae DO, PA Refill [id number] 06/27/20 16 06/27/2016 Kapil Monae DO PA Unknown [id number] 07/07/20 16 07/07/2016 Kapil Monae DO, [place] Unknown [id number] 07/07/20 16 07/07/2016 Kapil Monae DO, PA Unknown [id number] 07/07/20 16 07/07/2016 Kapil Monae DO, PA Unknown [id number] 07/07/20 16 07/07/2016 Kapil Monae DO, PA Unknown [id number] 07/07/20 16 07/07/2016 Kapil Monae DO, PA Unknown [id number] 07/07/20 16 07/07/2016 Kapil Monae DO, PA Unknown [id number] 07/07/20 16 07/07/2016 Kapil Monae DO, PA Non covered meds. [id number] 07/24/20 16 07/24/2016 Kapil Monae DO, PA Non covered meds. [id number] 07/24/20 16 07/24/2016 Kapil Monae DO, PA Non covered meds. [id number] 07/24/20 16 07/24/2016 Kapil Keshav Monae DO, PA Non covered meds. [id number] 07/24/20 16 07/24/2016 Kapil Monae DO, PA Non covered meds. [id number] 07/24/20 16 07/24/2016 Kapil Monae DO, PA Non covered meds. [id number] 07/24/20 16 07/24/2016 Kapil Monae DO, PA Flu shot only [id number] 08/26/20 16 08/26/2016 Kapil Monae DO, PA Flu shot only [id number] 08/26/20 16 08/26/2016 Kapil Monae DO, PA Flu shot only [id number] 08/26/20 16 08/26/2016 Kapil Monae DO, PA Flu shot only [id number] 08/26/20 16 08/26/2016 Kapil Monae DO, PA Flu shot only [id number] 08/26/20 16 08/26/2016 Kapil Monea DO, PA Medication called in wrong [id number] 09/11/2016 09/11/2016 Kapil Monae DO, PA Medication called in wrong [id number] 09/11/2016 09/11/2016 Kapil Monae DO, PA Medication called in wrong [id number] 09/11/2016 09/11/2016 Kapil Monae DO, PA Unknown [id number] 09/12/20 16 09/12/2016 Kapil Monae DO, PA Unknown [id number] 09/12/20 16 09/12/2016 Kapil Monae DO, PA Unknown [id number] 09/12/20 16 09/12/2016 Kapil Monae DO, PA Unknown [id number] 09/12/20 16 09/12/2016 Kapil Monae DO, PA Unknown [id number] 10/24/20 16 10/24/2016 Kapil Monae DO, PA Unknown [id number] 10/24/20 16 10/24/2016 Kapil Monae DO, PA Unknown [id number] 11/05/20 16 11/05/2016 Kapil Monae Procedures No Data Provided for This Section Assessment and Plan No Data Provided for This Section Plan of Care No Data Provided for This Section Social History Social History Date Source Social History ElementQualifiersDate Rep orted Tobacco Use: . Are you a: former smoker, What year d id you quit? 1995Jul 07, 2016 Use of recreational / street drugs? . Answer: No Jul 07, 2016 Marital Status: . , lives with spouse Jul 07, 2016 Do you exercise? . Answer: Yes walking while shopping. Jul 07, 2016 Do you drink alcohol? . Status: Yes, Type: Daily Jul 07, 2016 07/07/2016 Kapil Monae Family History Value Date S ource QualifierDescriptionCommentDate Reported Maternal Grandmother Comment not available Jul 07, 2016 Paternal Grandmother Comment not available Jul 07, 2016 Siblings Comment not available Jul 07, 2016 Maternal Grandfather Comment not available Jul 07, 2016 Children alive Comment not available Jul 07, 2016 Father Comment not available Jul 07, 2016 Paternal Grandfather Comment not available Jul 07, 2016 Mother Comment not available Jul 07, 2016 Other: Comment not available Jul 07, 2016 07/08/2016 Kapil Monae QualifierDescriptionCommentDate Reported Maternal Grandmother Comment not available Jan 01, 2016 Paternal Grandmother Comment not available Jan 01, 2016 Siblings Comment not available Jan 01, 2016 Maternal Grandfather Comment not available Jan 01, 2016 Children alive Comment not available Jan 01, 2016 Father Comment not available Jan 01, 2016 Paternal Grandfather Comment not available Jan 01, 2016 Mother Comment not available Jan 01, 2016 Other: Comment not available Jan 01, 2016 01/03/2016 Kapil Monae QualifierDescriptionCommentDate Reported Maternal Grandmother Comment not available Jul 20, 2015 Paternal Grandmother Comment not available Jul 20, 2015 Siblings Comment not available Jul 20, 2015 Maternal Grandfather Comment not available Jul 20, 2015 Children alive Comment not available Jul 20, 2015 Father Comment not available Jul 20, 2015 Paternal Grandfather Comment not available Jul 20, 2015 Mother Comment not available Jul 20, 2015 Other: Comment not available Jul 20, 2015 07/23/2015 Kapil Monae Advance Directives No Data Provided for This Section Functional Status No Data Provided for This Section
--- OUTSIDE RECORDS SUMMARY | 2020-08-03 10:45 | XMS REPORT | Clinical Summary ---
Author Author DA Truist Joongel Organization [facility]ist [place] [facility] Address Unknown Phone Unavailable Care Team Providers Care Compressor Service Technician Name Role Phone Sharpless PCP Allergies Comments Active Allergy Reactions Severity Noted Date Codeine Hives 03/06/2018 Penicillins Hives 03/06/2018 Medications End Date Status Medication Sig Dispensed Refills Start Date Suspended omeprazole (PRILOSEC) 20 Take 20 mg by 0 MG capsule mouth daily. Suspended petrolatum-mineral oil Apply BL 396 g 0 Oint topical ointment lower 8 extremities twice a day. Suspended insulin degludec (TRESIBA Inject 60 3 mL 0 FLEXTOUCH U-100) 100 Units 8 unit/mL (3 mL) InPn subcutaneousl y daily. Suspended clopidogreL (PLAVIX) 75 Take 75 mg by 0 mg tablet mouth daily. Suspended apixaban (ELIQUIS) 5 mg Take 5 mg by 0 Tab tablet mouth 2 (two) times daily. Suspended metoprolol tartrate Take 25 mg by 0 (LOPRESSOR) 25 MG tablet mouth 2 (two) times daily. Suspended potassium chloride Take 20 mEq 0 (KLOR-CON) 20 mEq packet by mouth 2 (two) times daily. Suspended amiodarone (PACERONE) 200 Take 200 mg 0 MG tablet by mouth daily. Suspended atorvastatin (LIPITOR) 20 Take 20 mg by 0 MG tablet mouth daily. Suspended furosemide (LASIX) 40 MG Take 40 mg by 0 tablet mouth 2 (two) times daily. Active Problems Problem Noted Date Acute ischemic stroke 08/03/2020 A-fib 08/03/2020 Coagulopathy 08/03/2020 CAD (coronary artery disease) 08/03/2020 DM2 (diabetes mellitus, type 2) 08/03/2020 TYRA (acute kidney injury) 08/03/2020 Bradycardia 08/03/2020 Alcohol use 08/03/2020 Hidradenitis suppurativa 08/03/2020 Sepsis 03/06/2018 Hypomagnesemia 03/06/2018 Hypophosphatemia 03/06/2018 Severe sepsis 03/06/2018 Left buttock abscess 03/06/2018 Hyperglycemia 03/06/2018 TYRA (acute kidney injury) 03/06/2018 Encounters Care Team Description Date Type Specialty Donald Woods MD Acute ischemic stroke (HCC); Paroxysmal atrial fibrillation (HCC); Alcohol use; Bradycardia; Coronary artery disease involving [facility] [place] heart without angina pectoris, unspecified vessel or lesion type; Coagulopathy (HCC); Type 2 diabetes mellitus with diabetic polyneuropathy, unspecified whether usp insulin use (HCC) 08/03/2020 Hospital Intensive Care Encounter after 08/02/2019 Social History Date Tobacco Use Types Packs/Day Years Used Quit: 1997 Former Smoker Smokeless Tobacco: Never Used Alcohol Use Drinks/Week oz/Week Comments Yes / First [employer] daily Sex Assigned at Date Recorded Not on file Industry Job Start Date Occupation Not on file Not on file Not on file Travel End Travel History Travel Start No recent travel history available. Last Filed Vital Signs Time Taken Vital Sign Reading 08/03/2020 6:30 AM CDT Blood Pressure 140/53 08/03/2020 6:30 AM CDT Pulse 44 08/03/2020 4:00 AM CDT Temperature 36.9 C (98.4 F) 08/03/2020 6:30 AM CDT Respiratory Rate 19 08/03/2020 6:30 AM CDT Oxygen Saturation 98% - Inhaled Oxygen - Concentration 08/03/2020 4:00 AM CDT Weight 126.2 kg (278 lb 3.5 oz) 08/03/2020 4:00 AM CDT Height 175.3 cm (5' 9") 08/03/2020 4:00 AM CDT Body Mass Index 41.09 Plan of Treatment Health Maintenance Due Date Last Done Comments PNEUMOCOCCAL 65+ 2003 LOW/MEDIUM RISK (1 of 2 - PCV13) MEDICARE ANNUAL WELLNESS 11/17/2013 (YEAR 2 or FIRST YEAR if no IPPE) INFLUENZA VACCINE (#1) 2020 Procedures * The patient is currently admitted. The information in this section might not be complete until the patient is discharged. Comments Procedure Name Priority Date/Time Associated Diag nosis CBC W/PLT COUNT & AUTO Routine 08/03/2020 DIFFERENTIAL 5:51 AM CDT TROPONIN I Routine 08/03/2020 5:51 AM CDT HOMOCYSTEINE Routine 08/03/2020 5:51 AM CDT VITAMIN B12 AND FOLATE Routine 08/03/2020 5:51 AM CDT HEMOGLOBIN A1C Routine 08/03/2020 5:51 AM CDT LIPID PANEL Routine 08/03/2020 5:51 AM CDT PROTHROMBIN TIME/INR Routine 08/03/2020 5:51 AM CDT COMPREHENSIVE METABOLIC Routine 08/03/2020 PANEL 5:51 AM CDT CBC W/PLT COUNT & AUTO Routine 08/03/2020 DIFFERENTIAL 5:51 AM CDT XR CHEST 1 VIEW Routine 08/03/2020 PORTABLE/BEDSIDE 5:43 AM CDT after 08/02/2019 Results * Vitamin B12 and Folate (08/03/2020 5:51 AM CDT) Vitamin B12 380 213 - 816 pg/mL [facility] Folate 4.50 (L) >=7.00 ng/mL [facility] Specimen Blood Narrative Performed At [facility] - PIAYA L [facility] Performing Organization Address City/State/Zipcode Ph one Number [facility] [address] [facility] [place] [place] [address] [facility] * CBC with platelet count + automated diff (08/03/2020 5:51 AM CDT) WBC 8.9 3.5 - 10.5 K/L [facility] RBC 3.34 (L) 4.63 - 6.08 M/L [facility] Hemoglobin 9.4 (L) 13.7 - 17.5 GM/DL [facility] Hematocrit 31.3 (L) 40.1 - 51.0 % [facility] MCV 93.7 (H) 79.0 - 92.2 fL [facility] MCH 28.1 25.7 - 32.2 pg [facility] MCHC 30.0 (L) 32.3 - 36.5 GM/DL [facility] RDW 14.9 (H) 11.6 - 14.4 % [facility] Platelets 349 150 - 450 K/CU MM [facility] MPV 11.5 9.4 - 12.4 fL [facility] nRBC 0 0 - 0 /100 WBC [facility] % Neutros 57 % [facility] % Lymphs 28 % [facility] % Monos 11 % [facility] % Eos 4 % [facility] % Baso 1 % [facility] # Neutros 5.06 1.78 - 5.38 K/L [facility] # Lymphs 2.47 1.32 - 3.57 K/L [facility] # Monos 0.96 (H) 0.30 - 0.82 K/L [facility] # Eos 0.36 0.04 - 0.54 K/L [facility] # Baso 0.05 0.01 - 0.08 K/L [facility] Immature 0 0 - 1 % [facility] Granulocytes-Relative [facility] Specimen Blood Performing Organization Address City/State/Zipcode Ph one Number [address] [facility] * Troponin I (08/03/2020 5:51 AM CDT) Troponin I 0.03 0.00 - 0.03 ng/mL [facility] Specimen Blood Narrative Performed At Troponin I (TnI) levels must be interpreted in the co ntext of the presenting [facility] symptoms and the clinical findings. Elevated TnI leve ls indicate myocardial [facility] damage, but are not specific for ischem ic heart disease. Elevated TnI levels are seen in patients with other cardiac con ditions (including myocarditis and congestive heart failure), and slight T nI elevations occur in patients with other conditions, including sepsis, millie al failure, acidosis, acute neurological disease, and persistent tachyarrhythmia . [facility] ID - PIAYA L Performing Organization Address [facility] one Number [place] [address] [facility] * Prothrombin time/INR (08/03/2020 5:51 AM CDT) Protime 18.7 (H) 11.9 - 14.2 seconds [facility] INR 1.61 <=5.90 [facility] Specimen Blood Narrative Performed At Effective 04/13/2019: PT Reference Range Change [facility] New: 11.9-14.2Previous: 11.7-14.7 [facility] MEDICAL CE NTER RECOMMENDED COUMADIN/WARFARIN INR THERA PY RANGES STANDARD DOSE: 2.0-3.0Includes: PRO PHYLAXIS for venous thrombosis, systemic embolization; TREATMENT for venous thro mbosis and/or pulmonary embolus. HIGH RISK: Target INR is 2.5-3.5 for pa tients wiht mechanical heart valves. Performing Organization Address [facility] one Number [address] [facility] * Homocysteine (08/03/2020 5:51 AM CDT) Homocysteine 30.8 (H) 5.1 - 15.4 umol/L [facility] Specimen Blood Narrative Performed At [facility] - ANNA Gardner [facility] Performing Organization Address City/[facility] Ph one Number [facility] [address] [place] [address] [address] [facility] * Hemoglobin A1c (08/03/2020 5:51 AM CDT) Hemoglobin A1C 6.2 (H) 4.3 - 6.1 % [facility] Specimen Blood Performing Organization Address [facility] Ph one Number [address] [phone] [place] [address] * Lipid panel (08/03/2020 5:51 AM CDT) Triglycerides 53 mg/dL [facility] Cholesterol 78 mg/dL [facility] HDL 25 mg/dL [facility] LDL Calculated 42 mg/dL [facility] Specimen Blood Narrative Performed At Triglyceride Reference Range: [facility] Low Risk <150 [facility] [id number] High Risk 200-499 Very High Risk>=500 Cholesterol Reference Range: Low Risk <200 [id number] High Risk>240 HDL Cholesterol Reference Range: Low Risk >=60 High Risk <40 LDL Cholesterol Reference Range: Optimal<100 Near [id number] Very High >=190 [facility] ID - ANNA L [facility] ID - SUMIT F Performing Organization Address [facility] Ph one Number [address] 0 [phone] [place] [address] * Comprehensive metabolic panel (08/03/2020 5:51 AM CDT) Protein, Total 7.7 6.0 - 8.3 gm/dL [facility] Albumin 3.2 (L) 3.5 - 5.0 g/dL [facility] Alkaline Phosphatase 65 40 - 150 U/L [facility] Total Bilirubin 0.5 0.2 - 1.2 mg/dL [facility] Sodium 138 136 - 145 meq/L [facility] Potassium 5.2 (H) 3.5 - 5.1 meq/L [facility] Chloride 107 98 - 107 meq/L [facility] CO2 23 22 - 29 meq/L [facility] BUN 35 (H) 7 - 21 mg/dL [facility] Creatinine 2.28 (H) 0.57 - 1.25 mg/dL [facility] Glucose 111 (H) 70 - 105 mg/dL [facility] Calcium 9.2 8.4 - 10.2 mg/dL [facility] AST 18 5 - 34 U/L [facility] ALT 12 6 - 55 U/L [facility] EGFR 33Comment: ESTIMATED GFR IS mL/min/1.73 sq m [facility] NOT ACCURATE CREATININE [facility] CLEARANCE IN PREDICTING GLOMERULAR FILTRATION RATE. ESTIMATED GFR IS NOT APPLICABLE FOR DIALYSIS PATIENTS. Specimen Blood Narrative Performed At [facility] - PIAYA L [facility] Performing Organization Address City/State/Zipcode Ph one Number [place] [address] [facility] * XR chest 1 view portable / bedside (08/03/2020 5:43 AM CDT) Specimen Narrative Performed At FINAL REPORT [facility] CLINICAL HISTORY: baseline TECHNIQUE: 1 view of the chest. COMPARISON: 03/06/2018 IMPRESSION: There is mild prominence of the pulmona ry vasculature and interstitial lung markings. There are n o significant appearing pleural effusions. There is cardiomegal y. Signed: Tatum Lopez MD Report Verified Date/Time: 0 08:07:39 Reading Location: [facility] Reading Room Procedure Note Interface, External Ris In - 08/03/2020 8:09 AM CDT FINAL REPORT CLINICAL HISTORY: baseline TECHNIQUE: 1 view of the chest. COMPARISON: 03/06/2018 IMPRESSION: There is mild prominence of the pulmonary vasculature and interstitial lung markings. There are no significant appearing pleural effusions. There is cardiomegaly. Signed: Tatum Lopez MD Report Verified Date/Time: 08/03/2020 08:07:39 Reading Location: [facility] Reading Room Performing Organization Address City/State/Zipcode Ph one Number GE RIS after 08/02/2019 Insurance Payer Benefit Subscriber ID Type Phone Address Plan / Group [employer] TEX[employer] xxxxxxxxx Maps HMO ALL Contracted [employer] xxxxxxxxx Maps PPO PFFS Contracted Advance Directives For more information, please contact: [facility] [address] [place] [address] Date Inactivated Comments Code Status Date Activated Full Code 08/03/2020 4:50 AM This code status was determined by: Patient 03/16/2018 4:55 PM Full Code 03/06/2018 2:28 PM This code status was determined by: Patient
--- OUTSIDE RECORDS SUMMARY | 2020-08-03 10:47 | XMS REPORT | Continuity of Care Document ---
Author Author [facility] t Organization [facility] Address 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 Name Role Phone UNKNOWN, REFFERING PCP Unavailable MARYAM NASH Attphys Unavailable Darya Mcfarland MD, Maryam Bennett Attphys Regis MOELLER Attphys Unavailable BARBARA FERNÁNDEZ Attphys Unavailable SHARIF ANGULO Attphys Unavailable MELY LIANG Attphys Unavailable Lani RUSS Attphys Unavailable Regis MCCORMACK Attphys Unavailable MARYAM NASH Admphys Unavailable BARBARA FERNÁNDEZ Admphys Unavailable ROLLY BUENROSTRO Admphys Unavailable EASTONRegis ORTA Admphys Unavailable Payers Payer Name Policy Type Policy Number Effective Date Expiration Date Christy florez [employer]AN[employer]EXANPLUS O ALLxxxxxxxxxMaps Contracted xxxxxxx xx [facility] [employer] [id number] 2019 00:00:00 [facility] [place] [facility] [id number] 2019 00:00:00 [facility] Problems Condition Name Condition Details Condition Category Status Onset Date Resolution Date Last Treatment Date Treating Clinician Comments Source Acute ischemic stroke Acute ischemic stroke Disease Active 202 00:00:00 [facility] A-fib A-fib Disease Active 2020-08-03 00:00:00 [facility] Coagulopathy Coagulopathy Disease Active 2020-08-03 00:00:00 [facility] CAD (coronary artery disease) CAD (coronary artery disease) Disease Active 2020-08-03 00:00:00 [facility] DM2 (diabetes mellitus, type 2) DM2 (diabetes mellitus, type 2) Dis ease Active 2020-08-03 00:00:00 [facility] TYRA (acute kidney injury) TYRA (acute kidney injury) Disease Ac tive 2020-08-03 00:00:00 [facility] Bradycardia Bradycardia Disease Active 2020-08-03 00:00:00 [facility] Alcohol use Alcohol use Disease Active 2020-08-03 00:00:00 [facility] Hidradenitis suppurativa Hidradenitis suppurativa Disease Acti ve 2020-08-03 00:00:00 [facility] Hypomagnesemia Hypomagnesemia Disease Active 2018-03-06 00:00:00 [facility] Hypophosphatemia Hypophosphatemia Disease Active 2018-03-06 00:00:00 [facility] Severe sepsis Severe sepsis Disease Active 2018-03-06 00:00:00 [facility] Left buttock abscess Left buttock abscess Disease Active 00:00:00 [facility] Hyperglycemia Hyperglycemia Disease Active 2018-03-06 00:00:00 [facility] TYRA (acute kidney injury) TYRA (acute kidney injury) Disease Ac tive 2018-03-06 00:00:00 [facility] Community acquired pneumonia CAP (community acquired pneumonia) Pro blem Active [facility] Fracture of rib Rib fractures Problem Active [facility] Fracture of multiple ribs Ribs, multiple fractures Problem Active [facility] Cellulitis Cellulitis Problem Active [facility] Non-ST elevation myocardial infarction (NSTEMI) Problem Active [facility] Pulmonary edema Problem Active [facility] Respiratory failure Problem Active [facility] Hemorrhagic cerebrovascular accident (CVA) Problem Active [facility] Slurred speech Problem Active 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 Active Problem 07/20/2020 Sav Monae Problem Active 2020-07-20 02:02:14 Rob Jean Baptiste Pneumonia, organism unspecified Pneumonia, organism unspecified Active Problem 07/20/2020 Sav Monae Problem Active 2020-07-20 02:02:14 Rob Jean Baptiste DM neuro manif type II DM n euro manif type II Active Problem 07/20/2020 Sav Monae Problem Active 20 05-08-04 02:02:14 Rob Jean Baptiste Polyneuropathy in diabetes [place] yneuropathy in diabetes Active Problem 07/20/2020 Sav Monae Problem Active 2020-07-20 02:02:14 Rob Jean Baptiste Dependence on supplemental oxygen Dependence on supplemental oxygen Active Problem 07/20/2020 Sav Monae Problem Ac tive 2020-07-20 02:02:14 Rob mauricio Adult body mass index 50.0-59.9 Adult body mass index 50.0-59.9 Active Problem 07/20/2020 Sav Monae Problem Active 2020-07-20 02:02:14 Rob Jean Baptiste DM circ dis type II DM c irc dis type II Active Problem 07/20/2020 Sav Monae Problem Active 2020-07-20 02:02:14 [facility] Baptiste Peripheral angiopathy in diseases classified elsewhere Peripheral angiopathy in diseases classified elsewhere Active Problem 07/20/2020 Sav Monae Problem Active 2020-07-20 02:02:14 Rob Jean Baptiste Sepsis, due to unspecified organism Sepsis, due to unspecified organism Active Problem 07/20/2020 Sav Monae Problem A ctive 2020-07-20 02:02:14 Rob mauricio Closed rib fracture Clos ed rib fracture Active Problem 07/20/2020 Sav Monae Problem Active 2020-07-20 02:02:14 Rob Jean Baptiste Morbid obesity Morb id obesity Active Problem 07/20/2020 Sav Monae Problem Active 2020-07-20 02:02:14 [facility] Acute cystitis without hematuria Acute cystitis without hematuria Active Problem 07/20/2020 Sav Hwangaum Problem Active 2020-07-20 02:02:14 [facility] 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 insulin Active Problem 07/20/2020 Sav Hwangaum Problem Active 2020-07-20 02:02:14 [facility] Cellulitis of unspecified part of limb Cellulitis of unspecified part of limb Active Problem 07/20/2020 Sav Hwangaum Problem Active 2020-07-20 02:02:14 Hoa hairstonregis Jean Baptiste Routine general medical examination at a health care acility Routine general medical examination at a health care facility Active Problem 07/20/2020 Sav Santosm Problem Active 2020-07-20 02:02:14 [facility] Acute bronchitis Acut e bronchitis Active Problem 07/20/2020 Sav Monae Problem Active 2020-07-20 02:02:14 [facility] Cutaneous abscess of limb, unspecified Cutaneous abscess of limb, unspecified Active Problem 07/20/2020 Sav Monae Problem A ctive 2020-07-20 02:02:14 [facility] Esophageal reflux Esop hageal reflux Active Problem 07/20/2020 Sav Monae Problem Active 2020-07-20 02:02:14 [facility] Edema Thee a Active Problem 07/20/2020 Sav Monae Problem Active 2020-07-20 02:02:14 [facility] Obstructive chronic bronchitis with exacerbation Obstructive chronic bronchitis with exacerbation Active Problem 07/20/2020 Sav Monae Problem Active 2020-07-20 02:02:14 [facility] Vitamin D deficiency Dara min D deficiency Active Problem 07/20/2020 Sav Hwangaum Problem Active 2020-07-20 02:02:14 [facility] 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 Active Problem 07/20/2020 Sav Santosm Problem Active 2020-07-20 02:02:14 [facility] 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 hypertensive 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 congestive heart failure Active Problem 07/20/2020 Sav Santosm Problem Active 05-08-04 02:02:14 [facility] Personal history of fall Pers onal history of fall Active Problem 07/20/2020 Sav Monae Problem Active 05-08-04 02:02:14 Rob Jean Baptiste Body mass index (BMI) of 45.0-49.9 in adult Body mass index (BMI) of 45.0-49.9 in adult Active Problem 07/20/2020 Sav Monae Problem Active 2020-07-20 02:02:14 Rob Jean Baptiste Acute upper respiratory infection Acute upper respiratory infection Active Diagnosis 08/27/2017 Sav Monae Diagnosis Active 2017-08-27 02:01:23 Hoa hairstonl Markel Flu vaccine need Flu vaccine need Active Diagnosis 10/06/2018 Sav Monae Diagnosis Active 2018-10-06 03:00:3 6 Rob Jean Baptiste 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 Active Problem 11/14/2015 Sav Monae Problem Active 2015-11-14 03:00:56 Rob Jean Baptiste Morbid obesity Morb id obesity Active Problem 11/14/2015 Sav Monae Problem Active 2015-11-14 03:00:56 Rob Jean Baptiste Obstructive chronic bronchitis with exacerbation Obstructive chronic bronchitis with exacerbation Active Problem 11/14/2015 Sav Monae Problem Active 2015-11-14 03:00:56 Rob Jean Baptiste Polyneuropathy in diabetes [place] yneuropathy in diabetes Active Problem 11/14/2015 Sav Monae Problem Active 2015-11-14 03:00:56 Rob Jean Baptiste Pneumonia, organism unspecified Pneumonia, organism unspecified Active Problem 11/14/2015 Sav Monae Problem Active 2015-11-14 03:00:56 Rob Jean Baptiste DM neuro manif type II DM n euro manif type II Active Diagnosis 12/27/2019 Sav Monae Diagnosis Active 2019-12-27 03:00:14 Rob Jean Baptiste Insulin long-term use Insu solo long-term use Active Problem 11/14/2015 Sav Monae Problem Active 2015-11-14 03:00:5 6 Rob Jean Baptiste Body mass index (BMI) of 45.0-49.9 in adult Body mass index (BMI) of 45.0-49.9 in adult Active Problem 11/14/2015 Sav Monae Problem Active 2015-11-14 03:00:56 Rob Jean Baptiste 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 hypertensive 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 congestive heart failure Active Problem 11/14/2015 Sav Monae Problem Active 30-10-30 03:00:56 [facility] Edema Thee a Active Diagnosis 11/30/2019 Sav Monae Diagnosis Active 2019-11-30 03:02:30 [facility] Esophageal reflux Esop hageal reflux Active Problem 11/14/2015 Sav Monae Problem Active 2015-11-14 03:00:56 [facility] Vitamin D deficiency Dara min D deficiency Active Problem 11/14/2015 Sav Monae Problem Active 2015-11-14 03:00:56 [facility] Closed rib fracture Clos ed rib fracture Active Problem 11/14/2015 Sav Monae Problem Active 2015-11-14 03:00:56 [facility] Oxygen dependent Oxyg en dependent Active Problem 11/14/2015 Sav Monae Problem Active 2015-11-14 03:00:56 [facility] Personal history of fall Pers onal history of fall Active Problem 11/14/2015 Sav Monae Problem Active 30-10-30 03:00:56 [facility] Chronic airway obstruction, not elsewhere classified Chronic airway obstruction, not elsewhere classified Active Problem 11/14/2015 Sav Monae Problem Active 2015-11-14 03:00:56 [facility] Emphysema lung Emph ysema lung Active Diagnosis 11/30/2019 Sav Monae Diagnosis Active 2019-11-30 03:02:3 0 [facility] Abnormal gait Abno rmal gait Active Problem 07/20/2020 Sav Monae Problem Active 2020-07-20 02:02:14 [facility] Colonic constipation [place] cassandra constipation Active Problem 07/20/2020 Sav Monae Problem Active 2020-07-20 02:02:14 [facility] Cellulitis of left thigh Cell ulitis of left thigh Active Diagnosis 11/30/2019 Sav Monae Diagnosis Active 2019-11-30 03:02:30 [facility] Flesh-eating bacteria Fles h-eating bacteria Active Diagnosis 11/30/2019 Sav Monae Diagnosis Active 2019-11-30 03:02:30 [facility] Body mass index (BMI) 36.0-36.9, adult Body mass index (BMI) 36.0-36.9, adult Active Problem 07/20/2020 Sav Monae Problem Active 2020-07-20 02:02:14 [facility] Essential (primary) hypertension Essential (primary) hypertension Active Problem 07/20/2020 Sav Monae Problem Active 2020-07-20 02:02:14 [facility] Epistaxis Epis taxis Active Diagnosis 03/07/2020 Sav Monae Diagnosis Active 2020-03-07 02:02:02 [facility] Acute non-ST elevation myocardial infarction (NSTEMI) Acute non-ST elevation myocardial infarction (NSTEMI) Active Problem 07/20/2020 Sav Monae Problem Active 2020-07-20 02:02:14 [facility] Pulmonary edema cardiac cause Pulmonary edema cardiac cause Active Problem 07/20/2020 Sav Monae Problem Active 2020-07-20 02:02:14 [facility] Unstable angina Unst able angina Active Problem 07/20/2020 Sav Monae Problem Active 2020-07-20 02:02:14 [facility] Acute respiratory failure with hypoxia Acute respiratory failure with hypoxia Active Diagnosis 07/20/2020 Sav Monae Diagnosis Active 2020-07-20 02:02:14 Memor ial Markel Abscess of right leg Absc ess of right leg Active Diagnosis 05/10/2020 Sav Monae Diagnosis Active 2020-05-10 02:00 :13 [facility] Allergies, Adverse Reactions, Alerts Allergy Name Allergy Type Status Severity Reaction(s) Onset Date Inacti ve Date Treating Clinician Comments Source Codeine Sulfate Codeine Sulfate Active Info Not Available 2020-07-19 00:00:00 [facility] Codeine Allergy to substance Active 2019-11-14 00:00:00 [facility] Chlorhexidine Allergy to substance Active Moderate ocasio skin 2 00:00:00 [facility] Penicillin Allergy to substance Active 2019-11-14 00:00:00 [facility] penicillin penicillin Active Info Not Available 2018-03-26 00:00:0 0 [facility] Codeine Propensity to adverse reactions Active Hives 00:00:00 [facility] Penicillins Propensity to adverse reactions Active Hives 2018-03-06 00:00:00 [facility] Family History Family Member Diagnosis Comments Start Date Stop Date Source Unknown Family Member Family History 2015-07-23 02:00:33 2 02:00:33 [facility] Social History Social Habit Start Date Stop Date Quantity Comments Source History of tobacco use Current smoker [facility] Sex Assigned At [facility] Alcohol Comment 2018-03-06 00:00:00 2018-03-06 00:00:00 1/5 eileen noel [facility] TobaccoUse: 2016-07-07 00:00:00 2016-07-07 00:00:00 [facility] Smoking Status Start Date Stop Date Source Former smoker 2018-03-15 00:00:00 2018-03-15 00:00:00 [facility] Medications Ordered Medication Name Filled Medication Name Start Date Stop Da te Current Medication? Ordering Clinician Indication Dosage Frequency Signature (SIG) Comments Components Source amiodarone (PACERONE) 200 MG tablet 2020-08-03 04:44:12 Yes 200mg QD Take 200 mg by mouth daily. [facility] atorvastatin (LIPITOR) 20 MG tablet 2020-08-03 04:44:12 Yes 20mg QD Take 20 mg by mouth daily. [facility] furosemide (LASIX) 40 MG tablet 2020-08-03 04:44:12 Yes 40mg Q.5D Take 40 mg by mouth 2 (two) times daily. [facility] clopidogreL (PLAVIX) 75 mg tablet 2020-08-03 04:44:11 Yes 75mg QD Take 75 mg by mouth daily. [facility] apixaban (ELIQUIS) 5 mg Tab tablet 2020-08-03 04:44:11 Yes 5mg Q.5D Take 5 mg by mouth 2 (two) times daily. [facility] metoprolol tartrate (LOPRESSOR) 25 MG tablet 2020-08-03 04:44:11 Yes 25mg Q.5D Take 25 mg by mouth 2 (two) times daily. [facility] potassium chloride (KLOR-CON) 20 mEq packet 2020-08-03 04:44:11 Yes 20meq Q.5D Take 20 mEq by mouth 2 (two) times daily. [facility] Omeprazole 2020-07-20 02:02:14 Yes Sav Buxbaum 1 capsule [facility] NovoFine 2020-07-20 02:02:14 Yes Sav Hwangaum USE PEN NEEDLE(S) WITH INSULIN PEN(S) 2 TO 3 TIMES A DAY. (USE A NEW PEN NEEDLE EACH TIME) [facility] Losartan Potassium 2020-07-20 02:02:14 Yes Sav Buxbaum 1 tablet [facility] Tresiba FlexTouch 2020-07-20 02:02:14 Yes Sav Buxbaum 10u [facility] Aspirin 81 2020-07-20 02:02:14 Yes Sav Buxbaum 1 tablet [facility] Famotidine 2020-07-20 02:02:14 Yes Sav Petersxbaum TAKE 2 TABLETS EVERY MORNING BEFORE BREAKFAST [facility] orial Waves Calcium 2020-07-20 02:02:14 Yes Sav Buxbaum 1 tablet with meals [facility] Sennosides-Docusate Sodium 2020-07-20 02:02:14 Yes Jose Miguel lin Buxbaum 1 tablet [facility] Vitamin D 2020-07-20 02:02:14 Yes Sav Buxbaum not defined [facility] Iron 2020-07-20 02:02:14 Yes Sav Buxbaum 1 ta blet [facility] Lasix 2020-07-20 02:02:14 Yes Sav Buxbaum 1 t ablet [facility] Clindamycin HCl 2020-07-20 02:02:14 Yes Sav Buxbaum 2 capsules [facility] Eliquis 2020-07-20 02:02:14 Yes Sav Hwangaum a s directed [facility] Tramadol-Acetaminophen 2020-07-20 02:02:14 Yes Sav Myers uxbaum 2 tablets as needed [facility] Metoprolol Tartrate 2020-07-20 02:02:14 Yes Sav Buxb aum 1 tablet with food [facility] Lipitor 2020-07-20 02:02:14 Yes Sav Buxbaum 1 tablet [facility] Plavix 2020-07-20 02:02:14 Yes Sav Buxbaum 1 tablet [facility] Potassium Chloride 2020-07-20 02:02:14 Yes Sav Hwanga um 1 tablet with food [facility] Senna S 2020-07-20 02:02:14 Yes Sav Buxbaum 1 tablet in the evening as needed [facility] Amiodarone HCl 2020-07-20 02:02:14 Yes Sav Buxbaum 1 tablet [facility] Spironolactone 2020-05-10 02:00:13 Yes Sav Buxbaum 1 tablet [facility] Carvedilol 2020-05-10 02:00:13 Yes Sav Buxbaum 1 tablet with food [facility] Hydrochlorothiazide 2020-05-10 02:00:13 Yes Sav Buxbaum 1 tablet [facility] Diltiazem HCl ER Beads 2020-05-10 02:00:13 Yes Sav Myers uxbaum TAKE 1 CAPSULE ONCE DAILY AT THE SAME TIME EACH DAY [facility] Chrissie Microlet Lancets 2020-05-10 02:00:13 Yes Sav Myers uxbaum TEST EVERY DAY DIRECTED BY DOCTOR [facility] MetFORMIN HCl ER 2020-05-10 02:00:13 Yes Sav Buxbaum 2 tablet with evening meal [facility] Chrissie Contour Next Test 2020-05-10 02:00:13 Yes Sav Buxbaum TEST EVERY DAY DIRECTED BY DOCTOR [facility] Vitamin D-3 2020-05-10 02:00:13 Yes Sav Buxbaum 1 tablet [facility] Mupirocin 2020-05-10 02:00:13 Yes Sav Buxbaum 1 application to affected area [facility] Petrolatum 2020-05-10 02:00:13 Yes Sav Buxbaum not defined [facility] HydrALAZINE HCl 2020-05-10 02:00:13 Yes Sav Buxbaum 1 tablet with food [facility] NIFEdipine ER 2020-05-10 02:00:13 Yes Sav Buxbaum 1 tablet on an empty stomach [facility] Losartan Potassium 2020-05-10 02:00:13 Yes Sav Buxba um 1 tablet and a half tablet [facility] Linezolid 2020-05-10 02:00:13 Yes Sav Buxbaum 1 tablet [facility] Metoclopramide HCl 2020-05-10 02:00:13 Yes Sav Buxba um 1 tablet before meals [facility] Hydrocodone-Acetaminophen 2020-05-10 02:00:13 Yes Joseae l Buxbaum 1 tablet as needed [facility] Pantoprazole Sodium 2020-05-10 02:00:13 Yes Sav Buxbaum 1 tablet [facility] Ciprofloxacin 2020-05-10 02:00:13 Yes Sav Buxbaum 1 tablet [facility] Omeprazole 2020-05-10 02:00:13 Yes Sav Buxbaum 1 capsule [facility] Magnesium Oxide 2020-05-10 02:00:13 Yes Sav Buxbaum 1 tablet with food [facility] Diltiazem HCl ER 2020-05-10 02:00:13 Yes Sav Buxbaum 1 tablet at the same time each day [facility] Sulfamethoxazole-TMP DS 2020-05-10 02:00:13 Yes Sav Buxbaum not defined [facility] Famotidine 2020-03-29 02:00:17 Yes Sav Buxbaum 2 tablet [facility] Amlodipine Besylate 2020-03-26 00:00:00 Yes Sav Buxbaum 1 tablet [facility] Amlodipine Besylate 2020-02-27 00:00:00 Yes Sav Buxbaum 1 tablet [facility] Spironolactone 2020-01-05 00:00:00 Yes Sav Buxbaum 1 tablet [facility] Diltiazem HCl ER 2019-11-30 03:02:30 Yes Sav Buxbaum 1 tablet at the same time each day [facility] Vitamin D 2019-11-30 03:02:30 Yes Sav Petersxbaum not defined [facility] Iron 2019-11-30 03:02:30 Yes Sav Buxbaum 1 ta blet [facility] One Touch Ultra 2019-10-19 00:00:00 Yes Sav Monae as directed [facility] Hydrochlorothiazide 2019-01-11 03:01:35 Yes Sav Buxbaum 1 tablet [facility] Lactulose 2018-10-29 00:00:00 Yes Sav Buxbaum 30 ml [facility] Lactulose 2018-10-29 00:00:00 Yes Sav Buxbaum 30 ml [facility] Ferrous Sulfate 2018-03-26 00:00:00 Yes Sav Buxbaum 1 tablet [facility] Ferrous Sulfate 2018-03-26 00:00:00 Yes Sav Buxbaum 1 tablet [facility] Ferrous Sulfate 2018-03-26 00:00:00 Yes Sav Buxbaum 1 tablet [facility] Ferrous Sulfate 2018-03-26 00:00:00 Yes Sav Buxbaum 1 tablet [facility] petrolatum-mineral oil Oint topical ointment 2018-03-16 00:00:00 Yes Apply BL lower extremities twice a day. [facility] insulin degludec (TRESIBA FLEXTOUCH U-100) 100 unit/mL (3 mL ) InPn 2018-03-16 00:00:00 Yes 60U QD Inject 60 Units subcutaneousl y daily. [facility] omeprazole (PRILOSEC) 20 MG capsule 2018-03-06 13:07:49 Yes 20mg QD Take 20 mg by mouth daily. [facility] Vitamin D-3 2018-02-11 00:00:00 Yes Sav Buxbaum 1 tablet [facility] Vitamin D-3 2018-02-11 00:00:00 Yes Sav Buxbaum 1 tablet [facility] Lantus 2017-12-26 03:01:02 Yes Sav Buxbaum 60 u [facility] GuaiFENesin DM 2017-12-26 03:01:02 Yes Sav Buxbaum 10 ml as needed [facility] Lantus 2017-08-27 02:01:23 Yes Sav Buxbaum 60 u [facility] Bactrim DS 2017-08-26 00:00:00 Yes Sav Buxbaum 1 tablet [facility] Bactroban Nasal 2017-08-26 00:00:00 Yes Sav Buxbaum as directed [facility] Spiriva HandiHaler 2017-06-23 00:00:00 Yes Sav Buxbaum 1 capsule [facility] Aspir-81 2017-06-23 00:00:00 Yes Sav Buxbaum 1 tablet [facility] Spironolactone 2017-06-23 00:00:00 Yes Sav Buxbaum 1 tablet [facility] Carvedilol 2017-02-17 02:01:01 Yes Sav Buxbaum 1 tablet with food [facility] MetFORMIN HCl ER 2017-02-17 02:01:01 Yes Sav Buxbaum 2 tablet with evening meal [facility] Famotidine 2017-02-17 02:01:01 Yes Sav Buxbaum 2 tablet [facility] Lantus 2017-02-17 02:01:01 Yes Sav Buxbaum 60 u [facility] Omeprazole 2017-02-17 02:01:01 Yes Sav Buxbaum 1 capsule [facility] Hydrochlorothiazide 2017-02-17 02:01:01 Yes Sav Buxbaum 1 tablet [facility] Bactrim DS 2017-02-16 00:00:00 Yes Sav Buxbaum 1 tablet [facility] Mupirocin 2017-02-16 00:00:00 Yes Sav Buxbaum apply with q-tip inside each nostril [facility] Accu-Chek Rachel SmartView 2016-11-05 00:00:00 Yes Sav Buxbaum as directed [facility] Chrissie Contour Next Monitor 2016-10-24 00:00:00 Yes Jose Miguel lin Buxbaum as directed [facility] Hydrochlorothiazide 2016-08-27 02:04:26 Yes Sav Buxbaum 2 tablet [facility] Furosemide 2016-08-27 02:04:26 Yes Sav Buxbaum 1 tablet [facility] Vitamin D-3 2016-08-27 02:04:26 Yes Sav Buxbaum Unknown [facility] Advair Diskus 2016-07-29 00:00:00 Yes Sav Buxbaum 1 puff [facility] Breo Ellipta 2016-07-07 00:00:00 Yes Sav Buxbaum 1 puff [facility] Bactrim DS 2016-07-07 00:00:00 Yes Sav Buxbaum 1 tablet [facility] Accu-Chek Rachel SmartView 2016-06-18 00:00:00 Yes Sav Buxbaum FSBG BID [facility] Accu-Chek Rachel SmartView 2016-06-18 00:00:00 Yes Sav Buxbaum FSBG BID [facility] Lantus SoloStar 2016-05-12 00:00:00 Yes Sav Buxbaum 60u [facility] Lantus SoloStar 2016-05-12 00:00:00 Yes Sav Buxbaum 60u [facility] Spironolactone 2016-01-03 03:00:58 Yes Sav Buxbaum 1 tablet [facility] Aspir-81 2016-01-03 03:00:58 Yes Sav Buxbaum 1 tablet [facility] Diltiazem HCl ER 2016-01-03 03:00:58 Yes Sav Buxbaum 1 tablet at the same time each day [facility] Spiriva HandiHaler 2016-01-03 03:00:58 Yes Sav Franxbaum 1 capsule [facility] Omeprazole 2016-01-03 03:00:58 Yes Sav Buxbaum 1 capsule [facility] GuaiFENesin DM 2016-01-03 00:00:00 Yes Sav Petersxbaum 10 ml as needed [facility] Zithromax Z-Simone 2016-01-03 00:00:00 Yes Sav Franxbaum 2 tablets on the first day, then 1 tablet daily for 4 days [facility] Amiodarone Hcl Amiodarone Hcl Yes 200 Twice A Da y [facility] Apixaban (Eliquis) 5 Mg TAB.DS.PK Apixaban (Eliquis) 5 Mg TAB.DS.PK Yes 5 Twice A Day [facility] Atorvastatin Calcium Atorvastatin Calcium Yes 80 Bedtime [facility] Clopidogrel Bisulfate (Clopidogrel) 75 Mg TABLET Clopi dogrel Bisulfate (Clopidogrel) 75 Mg TABLET Yes 75 Daily [facility] Furosemide Furosemide Yes 40 Daily [facility] Metoprolol Tartrate Metoprolol Tartrate Yes 25 Twice A Day [facility] Potassium Chloride Potassium Chloride Yes [address] [facility] Amlodipine Besylate Amlodipine Besylate 2020-08-03 00:00:00 No 10 Daily [facility] Aspirin (Aspir 81) 81 Mg TABLET. Aspirin (Aspir 81) 81 Mg YULISA ET 2020-08-03 00:00:00 No 81 Daily [facility] Calcium Carbonate (Calcium) 600 Mg TABLET Calcium Carb irina (Calcium) 600 Mg TABLET 2020-08-03 00:00:00 No 600 Daily [facility] Famotidine Famotidine 2020-08-03 00:00:00 No 20 Marine ly [facility] Iron Iron 2020-08-03 00:00:00 No 65 Daily [facility] Losartan Potassium Losartan Potassium 2020-08-03 00:00:00 No 100 Daily [facility] Metoprolol Succinate Metoprolol Succinate 2020-08-03 00:00:00 No [facility] Sennosides/Docusate Sodium (Senna-S Laxative Tablet) 1 Each TABLET Sennosides/Docusate Sodium (Senna-S Laxative Tablet) 1 Each TABLET 2020-08-03 00:00:00 No 2 Daily as needed for Constipatio n [facility] Tresiba Tresiba 2020-08-03 00:00:00 No 10 Twice A D ay [facility] Vitamin D Vitamin D 2020-08-03 00:00:00 No 125 Daily [facility] Ciprofloxacin Hcl (Cipro) 500 Mg TABLET Ciprofloxacin Hcl (C ipro) 500 Mg TABLET 2020-05-03 00:00:00 No 500 Twice A Day [facility] Magnesium Oxide Magnesium Oxide 2020-05-03 00:00:00 No 400 Twice A Day [facility] Omeprazole Omeprazole 2020-05-03 00:00:00 No 20 Twice A Day as needed for Indigestion [facility] Carvedilol Carvedilol 2019-11-14 00:00:00 No 12.5 Twi ce A Day [facility] Diltiazem Hcl (Diltiazem 24HR Er) 180 Mg CAPCR Diltiaz em Hcl (Diltiazem 24HR Er) 180 Mg CAPCR 2019-11-14 00:00:00 No 240 Daily [facility] Furosemide Furosemide 2019-11-14 00:00:00 No 40 Marine ly [facility] Hydrochlorothiazide Hydrochlorothiazide 2019-11-14 00:00:00 No 50 Daily [facility] Spironolactone Spironolactone 2019-11-14 00:00:00 No 50 Daily [facility] Aspirin (Aspir 81) 81 Mg TABLET. Aspirin (Aspir 81) 81 Mg YULISA CHRISTIAN 2019-08-11 00:00:00 No Daily [facility] Insulin Glargine (Lantus 3ML Pen) 100 Units/1 Ml INJ I nsulin Glargine (Lantus 3ML Pen) 100 Units/1 Ml INJ 2019-08-11 00:00:00 No 60 Daily [facility] Metformin Hcl Metformin Hcl 2019-08-11 00:00:00 No 1000 Twice A Day [facility] Diltiazem Hcl Diltiazem Hcl 2017-12-11 00:00:00 No 60 Daily [facility] Diltiazem Hcl (Diltiazem 24HR Er) 180 Mg CAPCR Diltiaz em Hcl (Diltiazem 24HR Er) 180 Mg CAPCR 2017-12-11 00:00:00 No 240 Daily [facility] Vital Signs Vital Name Observation Time Observation Value Comments Source Systolic blood pressure 2020-08-03 06:30:00 140 mm[Hg] [facility] Diastolic blood pressure 2020-08-03 06:30:00 53 mm[Hg] [facility] Heart rate 2020-08-03 06:30:00 44 /min [facility] Respiratory rate 2020-08-03 06:30:00 19 /min [facility] Oxygen saturation in Arterial blood by Pulse oximetry 08-03 06:30:00 98 /min [facility] temperature 2020-08-03 04:00:00 36.89 Kristi [facility] Body height 2020-08-03 04:00:00 175.3 cm [facility] Body weight Measured 2020-08-03 04:00:00 126.2 kg [facility] BMI 2020-08-03 04:00:00 41.09 kg/m2 [facility] Weight 2020-08-02 23:18:00 283 [lb_av] [facility] BMI (Body Mass Index) 2020-08-02 23:18:00 38.4 kg/m2 [facility] Weight 2020-07-19 19:15:00 [facility] Height 2020-07-19 19:15:00 [facility] Temperature Oral (F) 2020-07-19 19:15:00 97.1 F [facility] Heart Rate 2020-07-19 19:15:00 [facility] Diastolic (mm Hg) 2020-07-19 19:15:00 [facility] Systolic (mm Hg) 2020-07-19 19:15:00 [facility] Body Temperature 2020-07-18 04:00:00 97.6 [degF] [facility] BMI (Body Mass Index) 2020-07-17 01:41:00 38.4 kg/m2 [facility] Weight 2020-07-12 09:00:00 283 [lb_av] [facility] Weight 2020-05-09 14:00:00 [facility] Height 2020-05-09 14:00:00 [facility] Heart Rate 2020-05-09 14:00:00 [facility] Diastolic (mm Hg) 2020-05-09 14:00:00 [facility] Systolic (mm Hg) 2020-05-09 14:00:00 [facility] Weight 2020-03-06 16:15:00 [facility] Height 2020-03-06 16:15:00 [facility] Temperature Oral (F) 2020-03-06 16:15:00 98.3 F [facility] Heart Rate 2020-03-06 16:15:00 [facility] Diastolic (mm Hg) 2020-03-06 16:15:00 [facility] Systolic (mm Hg) 2020-03-06 16:15:00 [facility] Weight 2020-02-27 16:00:00 [facility] Height 2020-02-27 16:00:00 [facility] Heart Rate 2020-02-27 16:00:00 [facility] Diastolic (mm Hg) 2020-02-27 16:00:00 [facility] Systolic (mm Hg) 2020-02-27 16:00:00 [facility] Weight 2019-11-28 20:45:00 [facility] Height 2019-11-28 20:45:00 [facility] Temperature Oral (F) 2019-11-28 20:45:00 98.3 F [facility] Heart Rate 2019-11-28 20:45:00 [facility] Diastolic (mm Hg) 2019-11-28 20:45:00 [facility] Systolic (mm Hg) 2019-11-28 20:45:00 [facility] Weight 2019-10-18 18:00:00 [facility] Height 2019-10-18 18:00:00 [facility] Temperature Oral (F) 2019-10-18 18:00:00 97.1 F [facility] Heart Rate 2019-10-18 18:00:00 [facility] Diastolic (mm Hg) 2019-10-18 18:00:00 [facility] Systolic (mm Hg) 2019-10-18 18:00:00 [facility] Weight 2019-06-24 15:45:00 [facility] Height 2019-06-24 15:45:00 [facility] Temperature Oral (F) 2019-06-24 15:45:00 96.8 F [facility] Heart Rate 2019-06-24 15:45:00 [facility] Diastolic (mm Hg) 2019-06-24 15:45:00 [facility] Systolic (mm Hg) 2019-06-24 15:45:00 [facility] Weight 2018-12-15 17:30:00 [facility] Height 2018-12-15 17:30:00 [facility] Temperature Oral (F) 2018-12-15 17:30:00 96.6 F [facility] Diastolic (mm Hg) 2018-12-15 17:30:00 [facility] Systolic (mm Hg) 2018-12-15 17:30:00 [facility] Weight 2018-10-04 18:45:00 [facility] Height 2018-10-04 18:45:00 [facility] Temperature Oral (F) 2018-10-04 18:45:00 96.4 F [facility] Heart Rate 2018-10-04 18:45:00 [facility] Diastolic (mm Hg) 2018-10-04 18:45:00 [facility] Systolic (mm Hg) 2018-10-04 18:45:00 [facility] Weight 2018-03-26 14:30:00 [facility] Height 2018-03-26 14:30:00 [facility] Temperature Oral (F) 2018-03-26 14:30:00 97.4 F [facility] Heart Rate 2018-03-26 14:30:00 [facility] Diastolic (mm Hg) 2018-03-26 14:30:00 [facility] Systolic (mm Hg) 2018-03-26 14:30:00 [facility] Weight 2017-12-22 20:30:00 [facility] Height 2017-12-22 20:30:00 [facility] Temperature Oral (F) 2017-12-22 20:30:00 97.8 F [facility] Heart Rate 2017-12-22 20:30:00 [facility] Diastolic (mm Hg) 2017-12-22 20:30:00 [facility] Systolic (mm Hg) 2017-12-22 20:30:00 [facility] Weight 2017-08-26 15:30:00 [facility] Height 2017-08-26 15:30:00 [facility] Temperature Oral (F) 2017-08-26 15:30:00 97.8 F [facility] Heart Rate 2017-08-26 15:30:00 [facility] Diastolic (mm Hg) 2017-08-26 15:30:00 [facility] Systolic (mm Hg) 2017-08-26 15:30:00 [facility] Weight 2017-02-16 14:45:00 [facility] Height 2017-02-16 14:45:00 [facility] Temperature Oral (F) 2017-02-16 14:45:00 96.8 F [facility] Heart Rate 2017-02-16 14:45:00 [facility] Diastolic (mm Hg) 2017-02-16 14:45:00 [facility] Systolic (mm Hg) 2017-02-16 14:45:00 [facility] Weight 2016-07-07 14:45:00 [facility] Height 2016-07-07 14:45:00 [facility] Temperature Oral (F) 2016-07-07 14:45:00 96.2 F [facility] Heart Rate 2016-07-07 14:45:00 [facility] Diastolic (mm Hg) 2016-07-07 14:45:00 [facility] Systolic (mm Hg) 2016-07-07 14:45:00 [facility] Weight 2016-01-01 20:00:00 [facility] Height 2016-01-01 20:00:00 [facility] Temperature Oral (F) 2016-01-01 20:00:00 97.2 F [facility] Heart Rate 2016-01-01 20:00:00 [facility] Diastolic (mm Hg) 2016-01-01 20:00:00 [facility] Systolic (mm Hg) 2016-01-01 20:00:00 Ariel rial Mak[facility] Weight 2015-07-20 13:45:00 [facility] Height 2015-07-20 13:45:00 [facility] Temperature Oral (F) 2015-07-20 13:45:00 97.7 F [facility] Heart Rate 2015-07-20 13:45:00 [facility] Diastolic (mm Hg) 2015-07-20 13:45:00 [facility] Systolic (mm Hg) 2015-07-20 13:45:00 [facility] Procedures Procedure Date / Time Performed Performing Clinician [facility] e COMPREHENSIVE METABOLIC PANEL 2020-08-03 05:51:00 Jossy Steward [facility] PROTHROMBIN TIME/INR 2020-08-03 05:51:00 [facility] LIPID PANEL 2020-08-03 05:51:00 [facility] HEMOGLOBIN A1C 2020-08-03 05:51:00 [facility] VITAMIN B12 AND FOLATE 2020-08-03 05:51:00 [facility] HOMOCYSTEINE 2020-08-03 05:51:00 [facility] TROPONIN I 2020-08-03 05:51:00 [facility] CBC W/PLT COUNT & AUTO DIFFERENTIAL 2020-08-03 05:51:00 [facility] XR CHEST 1 VIEW PORTABLE/BEDSIDE 2020-08-03 05:43:00 Noe Steward [facility] Computed tomography of brain without radiopaque contrast 2020-07 00:00:00 [facility] Ultrasound, renal 2020-07-09 00:00:00 [facility] CT extremity lower wo contrast 2020-07-09 00:00:00 [facility] Computed tomography of chest with contrast 2020-07-06 00:00:00 [facility] DRAIN THIGH/KNEE LESION 2020-05-04 00:00:00 [facility] X-ray of chest, two views 2020-05-03 00:00:00 [facility] Plan of Care Planned Activity Planned Date Details Comments Source Future Scheduled Test 2020-07-17 00:00:00 INFLUENZA VACCINE (#1) [code = INFLUENZA VACCINE (#1)] [facility] Future Scheduled Test 2013-11-17 00:00:00 MEDICARE ANNUAL WE LLNESS (YEAR 2 or FIRST YEAR if no IPPE) [code = MEDICARE ANNUAL WELLNESS (YEAR 2 or FIRST YEAR if no IPPE)] [facility] Future Scheduled Test 2003 00:00:00 PNEUMOCOCCAL 65+ L OW/MEDIUM RISK (1 of 2 - PCV13) [code = PNEUMOCOCCAL 65+ LOW/MEDIUM RISK (1 of 2 - PCV13)] [facility] Encounters Start Date/Time End Date/Time Encounter Type Admission Type Att[facility] Care Department Encounter ID Source 2019-11-17 12:48:09 Outpatient MHSE MHSE [id number] [facility] 2020-08-02 23:19:00 2020-08-03 03:08:00 Departed Emergency Room 1 SAV MOELLER [facility] [id number] [facility] 2020-07-30 08:00:00 2020-07-30 08:00:00 Outpatient MHSE MHSE [id number] [facility] 2020-07-19 14:15:00 2020-07-19 14:15:00 Outpatient Sav E Buxbaum DOPA Sav E Buxbaum DOPA [id number] eClinicalWorks 2020-07-06 19:12:00 2020-07-18 12:33:00 Discharged Inpatient 1 FERNÁNDEZBARBARA [facility] [id number] [facility] 2020-06-01 10:44:00 2020-06-01 10:44:00 Outpatient Sav E Buxbaum DOPA Sav E Buxbaum DOPA [id number] [employer]ClinicalWorks 2020-06-01 10:25:00 2020-06-01 10:25:00 Outpatient Sav E Buxbaum DOPA Sav E Buxbaum DOPA [id number] [employer]ClinicalWorks 2020-05-09 09:00:00 2020-05-09 09:00:00 Outpatient Sav E Buxbaum DOPA Sav E Buxbaum DOPA [id number] [employer]ClinicalWorks 2020-05-04 12:04:00 2020-05-04 12:04:00 Registered Surgical Day Kieran ANGULO SHARIF [facility] [id number] I [facility] 2020-03-28 12:16:00 2020-03-28 12:16:00 Outpatient Sav E Buxbaum DOPA Sav E Buxbaum DOPA [id number] eClinicalWorks 2020-03-06 11:15:00 2020-03-06 11:15:00 Outpatient Sav E Buxbaum DOPA Sav E Buxbaum DOPA [id number] eClinicalWorks 2020-02-27 11:00:00 2020-02-27 11:00:00 Outpatient Sav E Buxbaum DOPA Sav E Buxbaum DOPA [id number] eClinicalWorks 2019-12-26 10:28:00 2019-12-26 10:28:00 Outpatient Sav E Buxbaum DOPA Sav E Buxbaum DOPA [id number] eClinicalWorks 2019-11-28 14:45:00 2019-11-28 14:45:00 Outpatient Sav E Buxbaum DOPA Sav E Buxbaum DOPA [id number] eClinicalWorks 2019-11-14 16:15:00 2019-11-18 12:27:00 Discharged Inpatient 1 BARBARA FERNÁNDEZ [facility] [id number] [facility] 2019-10-19 09:40:00 2019-10-19 09:40:00 Outpatient Sav E Buxbaum DOPA Sav E Buxbaum DOPA [id number] eClinicalWorks 2019-10-18 12:00:00 2019-10-18 12:00:00 Outpatient Sav E Buxbaum DOPA Sav E Buxbaum DOPA [id number] eClinicalWorks 2019-10-11 12:44:00 2019-10-11 12:44:00 Outpatient Sav E Buxbaum DOPA Sav E Buxbaum DOPA [id number] eClinicalWorks 2019-10-05 15:49:00 2019-10-05 15:49:00 Outpatient Sav E Buxbaum DOPA Sav E Buxbaum DOPA [id number] eClinicalWorks 2019-10-04 16:08:00 2019-10-04 16:08:00 Outpatient E [facility]SE MED [id number] [facility] 2019-10-04 08:00:00 2019-10-04 08:00:00 Outpatient MHSE MED [id number] [facility] 2019-08-11 06:11:00 2019-09-06 16:37:00 Discharged Inpatient 1 BARBARA FERNÁNDEZ [facility] [id number] [facility] 2019-07-11 14:56:00 2019-07-11 14:56:00 Outpatient Sav E Buxbaum DOPA Sav E Buxbaum DOPA [id number] eClinicalWorks 2019-07-07 13:35:00 2019-07-07 13:35:00 Outpatient Sav E Buxbaum DOPA Sav E Buxbaum DOPA [id number] eClinicalWorks 2019-06-24 10:45:00 2019-06-24 10:45:00 Outpatient Sav E Buxbaum DOPA Sav E Buxbaum DOPA [id number] eClinicalWorks 2019-01-10 14:34:00 2019-01-10 14:34:00 Outpatient Sav E Buxbaum DOPA Sav E Buxbaum DOPA [id number] eClinicalWorks 2018-12-15 11:30:00 2018-12-15 11:30:00 Outpatient Sav E Buxbaum DOPA Sav E Buxbaum DOPA [id number] eClinicalWorks 2018-10-29 09:46:00 2018-10-29 09:46:00 Outpatient Sav E Buxbaum DOPA Sav E Buxbaum DOPA [id number] eClinicalWorks 2018-10-04 12:45:00 2018-10-04 12:45:00 Outpatient Sav E Buxbaum DOPA Sav E Buxbaum DOPA [id number] eClinicalWorks 2018-09-29 09:37:00 2018-09-29 09:37:00 Outpatient Sav E Buxbaum DOPA Sav E Buxbaum DOPA [id number] eClinicalWorks 2018-07-16 10:07:00 2018-07-16 10:07:00 Outpatient Sav E Buxbaum DOPA Sav E Buxbaum DOPA [id number] eClinicalWorks 2018-06-14 09:37:00 2018-06-14 09:37:00 Outpatient Sav E Buxbaum DOPA Sav E Buxbaum DOPA [id number] eClinicalWorks 2018-03-26 09:30:00 2018-03-26 09:30:00 Outpatient Sav E Buxbaum DOPA Sav E Buxbaum DOPA [id number] eClinicalWorks 2018-01-13 09:05:00 2018-01-13 09:05:00 Outpatient Sav E Buxbaum DOPA Sav E Buxbaum DOPA [id number] eClinicalWorks 2017-12-22 14:30:00 2017-12-22 14:30:00 Outpatient Sav E Buxbaum DOPA Sav E Buxbaum DOPA [id number] eClinicalWorks 2017-12-02 10:11:00 2017-12-02 10:11:00 Outpatient Sav E Buxbaum DOPA Sav E Buxbaum DOPA [id number] eClinicalWorks 2017-08-26 10:30:00 2017-08-26 10:30:00 Outpatient Sav E Buxbaum DOPA Sav E Buxbaum DOPA [id number] eClinicalWorks 2017-02-24 14:30:00 2017-02-24 14:30:00 Outpatient Sav E Buxbaum DOPA Sav E Buxbaum DOPA [id number] eClinicalWorks 2017-02-16 09:45:00 2017-02-16 09:45:00 Outpatient Sav E Buxbaum DOPA Sav E Buxbaum DOPA [id number] eClinicalWorks 2017-02-09 15:57:00 2017-02-09 15:57:00 Outpatient Sav E Buxbaum DOPA Sav E Buxbaum DOPA [id number] eClinicalWorks 2017-02-03 08:58:00 2017-02-03 08:58:00 Outpatient Sav E Buxbaum DOPA Sav E Buxbaum DOPA [id number] eClinicalWorks 2016-11-05 10:22:00 2016-11-05 10:22:00 Outpatient Sav Monae [place], [place] [id number] eClinicalWork s 2016-10-24 10:19:00 2016-10-24 10:19:00 Outpatient Sav Monae [place], [place] [id number] eClinicalWork s 2016-09-12 11:10:00 2016-09-12 11:10:00 Outpatient Sav Monae [place], [place] [id number] eClinicalWork s 2016-09-11 11:52:00 2016-09-11 11:52:00 Outpatient Sav Monae [place], [place] [id number] eClinicalWork s 2016-08-26 11:00:00 2016-08-26 11:00:00 Outpatient Sav Monae [place], [place] [id number] eClinicalWork s 2016-07-24 13:51:00 2016-07-24 13:51:00 Outpatient Sav Monae DO, [place] [id number] eClinicalWork s 2016-07-07 09:45:00 2016-07-07 09:45:00 Outpatient Sav Monae [place], [place] [id number] eClinicalWork s 2016-06-27 15:36:00 2016-06-27 15:36:00 Outpatient Sav Monae [place], [place] [id number] eClinicalWork s 2016-06-17 15:58:00 2016-06-17 15:58:00 Outpatient Sav Monae [place], [place] [id number] eClinicalWork s 2016-05-26 12:57:00 2016-05-26 12:57:00 Outpatient Sav Monae [place], [place] [id number] eClinicalWork s 2016-05-26 12:33:00 2016-05-26 12:33:00 Outpatient Sav Monae [place], [place] [id number] eClinicalWork s 2016-05-20 13:15:00 2016-05-20 13:15:00 Outpatient Sav Monae [place], [place] [id number] eClinicalWork s 2016-05-12 10:06:00 2016-05-12 10:06:00 Outpatient Sav Monae [place], [place] [id number] eClinicalWork s 2016-04-07 09:21:00 2016-04-07 09:21:00 Outpatient Sav Monae [place], [place] [id number] eClinicalWork s 2016-03-24 15:55:00 2016-03-24 15:55:00 Outpatient Sav Monae [place], [place] [id number] eClinicalWork s 2016-01-25 10:12:00 2016-01-25 10:12:00 Outpatient Sav Monae [place], [place] [id number] eClinicalWork s 2016-01-03 10:52:00 2016-01-03 10:52:00 Outpatient Sav Monae [place], [place] [id number] eClinicalWork s 2016-01-01 14:00:00 2016-01-01 14:00:00 Outpatient Sav Monae [place], [place] [id number] eClinicalWork s 2015-11-12 08:32:00 2015-11-12 08:32:00 Outpatient Sav Monae [place], [place] [id number] eClinicalWork s 2015-09-24 14:11:00 2015-09-24 14:11:00 Outpatient Sav Monae [place], [place] [id number] eClinicalWork s 2015-09-24 14:06:00 2015-09-24 14:06:00 Outpatient Sav Monae [place], [place] [id number] eClinicalWork s 2015-07-20 08:45:00 2015-07-20 08:45:00 Outpatient Sav Monae DO, PA [facility], [place], [place] [id number] eClinicalWork s Results Test Description Test Time Test Comments Results Result Comments Source Hemoglobin A1c 2020-08-03 08:18:00 Test Item Hemoglobin A1C (test code = 4548-4) 6.2 % 4.3-6.1 H Lab Interpretation (test code = 71409-9) [id number] 08:18:00* Test Item Value Reference Range Interpretation Comments HEMOGLOBIN A1C (BEAKER) (test code = 368) 6.2 % 4.3-6.1 H RAD, CHEST, 1 VIEW, NON [id number] 08:07:00Post-intubationReason for exam:-> baselineShould this be performed at the bedside?->YesFINAL REPORT CLINICAL HISTORY: baseline TECHNIQUE: 1 view of the chest. COMPARISON: 03/06/2018 IMPRESSION: There is mild prominence of the pulmonary vasculature and interstitial lung markings. There are no significant appearing pleural effusions. There is cardiomegaly. Signed: Tatum Lopez Verified Date/Time: 08/03/2020 08:07:39 Reading Location: [facility] Radiology Reading Room chest 1 view portable / [id number] 08:07:00Interface, External Ris In - 08/03/2020 8:09 AM CDTFINAL REPORT CLINICAL HISTORY: baseline TECHNIQUE: 1 view of the chest. COMPARISON: 03/06/2018 IMPRESSION: There is mild prominence of the pulmonary vasculature and interstitial lung markings. There are no significant appearing pleural effusions . There is cardiomegaly. Signed: Tatum Lopez Verified Date/Time: 08:07:39 Reading Location: [facility] Radiology Reading Room Phoebe ctronically signed by: TATUM LOPEZ M.D. on 08/03/2020 08:07 AM [facility] [id number] 07:45:00* Test Item Value Reference Range Interpretation Comments Triglycerides (test code = 2571-8) 53 mg/dL Cholesterol (test code = 2093-3) 78 mg/dL HDL (test code = 2085-9) 25 mg/dL LDL Calculated (test code = 14037-1) 42 mg/dL TIFFANY (test code = TIFFANY) Triglyceride Reference Range : Low Risk <150 Borderline 150-199 High Risk 200-499 Very High Risk >=500 Cholesterol Reference Range: Low Risk <200 Borderline 200-239 High Risk >240 HDL Cholesterol Reference Range: Low Risk >=60 High Risk <40 LDL Cholesterol Reference Range: Optimal <100 Near Optimal 100-129 Borderline 130-159 High 160-189 Very High >=190 Infant Caregiver LESLY ARANA F [facility] [id number] 07:45:00* Test Item Value Reference Range Interpretation Comments TRIGLYCERIDES (BEAKER) (test code = 540) 53 mg/dL CHOLESTEROL (BEAKER) (test code = 631) 78 mg/dL HDL CHOLESTEROL (BEAKER) (test code = 976) 25 mg/dL LDL CHOLESTEROL CALCULATED (BEAKER) (test code = 633) 42 mg/dL Triglyceride Reference Range: Low Risk <150 Borderline 150-199 High Risk 200-499 Very High Risk >=500Cholesterol Reference Range: Low Risk <200 Borderline 200-239 High Risk >240HDL Cholesterol Reference Range: Low Risk >=60 High Risk <40LDL Cholesterol Reference Range: Optimal <100 Near Optimal 100-129 Borderline 130-159 High 160-189 Very High >=190 Infant Caregiver LESLY ARANA [id number] 07:30:00* Test Item Value Reference Range Interpretation Comments Homocysteine (test code = 99746-8) 30.8 umol/L 5.1-15.4 H TIFFANY (test code = TIFFANY) Infant Caregiver ID Danny Gardner Lab Interpretation (test code = 84863-6) [facility] and [id number] 07:30:00* Test Item Value Reference Range Interpretation Comments Vitamin B12 (test code = 2132-9) 380 pg/mL 213-816 Folate (test code = 2284-8) 4.50 ng/mL >=7.00 L TIFFANY (test code = TIFFANY) Infant Caregiver ID - PIAYA L Lab Interpretation (test code = 71365-8) [facility]2020-[facility] 07:30:00* Test Item Value Reference Range Interpretation Comments HOMOCYSTEINE (CLAUDIAAKER) (test code = 642) 30.8 umol/L 5.1-15.4 H Infant Caregiver ID Danny CASTILLO LVITAMIN B12 AND [id number] 07:30:00* Test Item Value Reference Range Interpretation Comments VITAMIN B12 (BEAKER) (test code = 774) 380 pg/mL 213-816 FOLATE (BEAKER) (test code = 362) 4.50 ng/mL >=7.00 L Infant Caregiver ID - ANNA LTroponin [id number] 06:46:00* Test Item Value Reference Range Interpretation Comments Troponin I (test code = 63900-0) 0.03 ng/mL 0-0.03 TIFFANY (test code = TIFFANY) Troponin I (TnI) levels must be interpreted in the context of the presenting symptoms and the clinical findings. Elevated TnI levels indicate myocardial damage, but are not specific for ischemic heart disease. Elevated TnI levels are seen in patients with other cardiac conditions (including myocarditis and congestive heart failure), and slight TnI elevations occur in patients with other conditions, including sepsis, renal failure, acidosis, acute neurological disease, and persistent tachyarrhythmia.Infant Caregiver ID Danny CASTILLO L Lab Interpretation (test code = 05777-2) [facility] [id number] 06:46:00* Test Item Value Reference Range Interpretation Comments TROPONIN I (BETERRELL) (test code = 397) 0.03 ng/mL 0.00-0.03 Troponin I (TnI) levels must [...] acidosis, acute neurological disease, and per sistent tachyarrhythmia.Infant Caregiver ID Danny CASTILLO LComprehensive metabolic panel 2020-08-03 06:39:00* Test Item Value Reference Range Interpretation Comments Protein, Total (test code = 2885-2) 7.7 6.0- 8.3 gm/dL Albumin (test code = 22403-0) 3.2 g/dL 3.5-5 L Alkaline Phosphatase (test code = 6768-6) 65 U/L 40-150 Total Bilirubin (test code = 1974-2) 0.5 mg/dL 0.2-1.2 Sodium (test code = 2951-2) 138 meq/L 136-145 Potassium (test code = 2823-3) 5.2 meq/L 3.5-5.1 H Chloride (test code = 5-0) 107 meq/L 98-107 CO2 (test code = 8-9) 23 meq/L 22-29 BUN (test code = 3094-0) 35 mg/dL 7-21 H Creatinine (test code = 2160-0) 2.28 mg/dL 0.57-1.25 H Glucose (test code = 2345-7) 111 mg/dL 70-105 H Calcium (test code = 18328-6) 9.2 mg/dL 8.4-10.2 AST (test code = 1920-8) 18 U/L 5-34 ALT (test code = 1742-6) 12 U/L 6-55 EGFR (test code = 56677-2) 33 mL/min/1.73 sq m ESTIMATED GFR IS NOT ACCURATE CREATININE CLEARANCE IN PREDICTING GLOMERULAR FILTRATION RATE. ESTIMATED GFR IS NOT APPLICABLE FOR DIALYSIS PATIENTS. TIFFANY (test code = TIFFANY) Infant Caregiver ID - PIAYA L Lab Interpretation (test code = 71929-2) [facility]normal [facility]COMPRE[facility]AB[facility] [id number] 06:39:00* Test Item Value Reference Range Interpretation Comments TOTAL PROTEIN (BEAKER) (test code = 770) 7.7 gm/dL 6.0-8.3 ALBUMIN (BEAKER) (test code = 1145) 3.2 g/dL 3.5-5.0 L ALKALINE PHOSPHATASE (BEAKER) (test code = 346) 65 U/L 40-150 BILIRUBIN TOTAL (BEAKER) (test code = 377) 0.5 mg/dL 0.2-1.2 SODIUM (BEAKER) (test code = 381) 138 meq/L 136-145 POTASSIUM (BEAKER) (test code = 379) 5.2 meq/L 3.5-5.1 H CHLORIDE (BEAKER) (test code = 382) 107 meq/L 98-107 CO2 (BEAKER) (test code = 355) 23 meq/L 22-29 BLOOD UREA NITROGEN (BEAKER) (test code = 354) 35 mg/dL 7-21 H CREATININE (BEAKER) (test code = 358) 2.28 mg/dL 0.57-1.25 H GLUCOSE RANDOM (BEAKER) (test code = 652) 111 mg/dL 70-105 H CALCIUM (BEAKER) (test code = 697) 9.2 mg/dL 8.4-10.2 AST (SGOT) (BEAKER) (test code = 353) 18 U/L 5-34 ALT (SGPT) (BEAKER) (test code = 347) 12 U/L 6-55 EGFR (BEAKER) (test code = 1092) 33 mL/min/1.73 sq m ESTIMATED GFR IS NOT ACCURATE CREATININE CLEARANCE IN PREDICTING GLOMERULAR FILTRATION RATE. ESTIMATED GFR IS NOT APPLICABLE FOR DIALYSIS PATIENTS. Infant Caregiver ID - PIAYA LProthrombin time/[id number] 06:18:00* Test Item Value Reference Range Interpretation Comments Protime (test code = 5902-2) 18.7 11.9- 14.2 seconds H INR (test code = 6301-6) 1.61 <=5.90 TIFFANY (test code = TIFFANY) Effective 04/13/2019: PT Refe rence Range ChangeNew: 11.9- 14.2 Previous: 11.7-14.7 RECOMMENDED COUMADIN/WARFARIN INR THERAPY RANGESSTANDARD DOSE: 2.0-3.0 Includes: PROPHYLAXIS for venous thrombosis, sys temic embolization; TREATMENT for venous thrombosis and/or pulmonary embolus.HIGH RISK: Target INR is 2.5-3.5 for patients wiht mechanical heart valves. Lab Interpretation (test code = 13159-3) Abnormal [facility] ServicesPROTHROMBIN TIME/[id number] 06:18:00* Test Item Value Reference Range Interpretation Comments PROTIME (BEAKER) (test code = 759) 18.7 seconds 11.9-14.2 H INR (BEAKER) (test code = 370) 1.61 <=5.90 Effective 04/13/2019: PT Reference Range ChangeNew: 11.9-14.2 Previous: 11.7-14. 7RECOMMENDED COUMADIN/WARFARIN INR THERAPY RANGESSTANDARD DOSE: 2.0-3.0 Include s: PROPHYLAXIS for venous thrombosis, systemic embolization; TREATMENT for venou s thrombosis and/or pulmonary embolus.HIGH RISK: Target INR is 2.5-3.5 for patie nts wiht mechanical heart valves.CBC with platelet count + automated diff 2020-08-03 06:05:00* Test Item Value Reference Range Interpretation Comments WBC (test code = 6690-2) 8.9 3.5- 10.5 K/L RBC (test code = 789-8) 3.34 4.63- 6.08 M/L L MCHC (test code = 786-4) 30.0 32.3- 36.5 GM/DL L Hematocrit (test code = 4544-3) 31.3 % 40.1-51 L MCV (test code = 787-2) 93.7 fL 79-92.2 H MCH (test code = 785-6) 28.1 pg 25.7-32.2 RDW (test code = 788-0) 14.9 % 11.6-14.4 H Platelets (test code = 777-3) 349 150- 450 K/CU MM MPV (test code = 10788-1) 11.5 fL 9.4-12.4 nRBC (test code = 413) 0 0- 0 /100 WBC % Neutros (test code = 429) 57 % % Lymphs (test code = 430) 28 % % Monos (test code = 431) 11 % % Eos (test code = 432) 4 % % Baso (test code = 437) 1 % # Neutros (test code = 670) 5.06 1.78- 5.38 K/L # Lymphs (test code = 414) 2.47 1.32- 3.57 K/L # Monos (test code = 415) 0.96 0.30- 0.82 K/L H # Eos (test code = 416) 0.36 0.04- 0.54 K/L # Baso (test code = 417) 0.05 0.01- 0.08 K/L Immature Granulocytes-Relative (test code = 2801) 0 % 0-1 Lab Interpretation (test code = 50611-2) Abnormal [facility] W/PLT COUNT & AUTO [id number] 06:05:00* Test Item Value Reference Range Interpretation Comments WHITE BLOOD CELL COUNT (BEAKER) (test code = 775) 8.9 K/ L 3.5- 10.5 RED BLOOD CELL COUNT (BEAKER) (test code = 761) 3.34 M/ L 4.63-6 .08 L HEMOGLOBIN (BEAKER) (test code = 410) 9.4 GM/DL 13.7-17.5 L HEMATOCRIT (BEAKER) (test code = 411) 31.3 % 40.1-51.0 L MEAN CORPUSCULAR VOLUME (BEAKER) (test code = 753) 93.7 fL 79. 0-92.2 H MEAN CORPUSCULAR HEMOGLOBIN (BEAKER) (test code = 751) 28.1 pg 25.7-32.2 MEAN CORPUSCULAR HEMOGLOBIN CONC (BEAKER) (test code = 752) 30.0 GM/DL 32.3-36.5 L RED CELL DISTRIBUTION WIDTH (BEAKER) (test code = 412) 14.9 % 11.6-14.4 H PLATELET COUNT (BEAKER) (test code = 756) 349 K/CU MM 150-450 MEAN PLATELET VOLUME (BEAKER) (test code = 754) 11.5 fL 9.4-12 .4 NUCLEATED RED BLOOD CELLS (BEAKER) (test code = 413) 0 /100 WBC 0 -0 NEUTROPHILS RELATIVE PERCENT (BEAKER) (test code = 429) 57 % LYMPHOCYTES RELATIVE PERCENT (BEAKER) (test code = 430) 28 % MONOCYTES RELATIVE PERCENT (BEAKER) (test code = 431) 11 % EOSINOPHILS RELATIVE PERCENT (BEAKER) (test code = 432) 4 % BASOPHILS RELATIVE PERCENT (BEAKER) (test code = 437) 1 % NEUTROPHILS ABSOLUTE COUNT (BEAKER) (test code = 670) 5.06 K/ L 1.78-5.38 LYMPHOCYTES ABSOLUTE COUNT (BEAKER) (test code = 414) 2.47 K/ L 1.32-3.57 MONOCYTES ABSOLUTE COUNT (BEAKER) (test code = 415) 0.96 K/ L 0. 30-0.82 H EOSINOPHILS ABSOLUTE COUNT (BEAKER) (test code = 416) 0.36 K/ L 0.04-0.54 BASOPHILS ABSOLUTE COUNT (BEAKER) (test code = 417) 0.05 K/ L 0. 01-0.08 IMMATURE GRANULOCYTES-RELATIVE PERCENT (BEAKER) (test code = 2801) 0 % 0-1 CHEST SINGLE (PORTABLE)2020-08-03 00:31:00 [place] [address] Patient Name: Becky ORTIZ JR MR #: [id number] : 1940 Age/Sex: 80/M Req #: [id number] Adm Physician: Ordered by: SAV MOELLER MD Report #: [id number] Location: ER Room/Bed: Procedure: [id number] DX/CHEST S ANNE (PORTABLE) Exam Date: 08/02/20 Exam Time: 5739 REPORT STATUS: Signed EXAMINATI ON: CHEST SINGLE (PORTABLE) INDICATION: BRADYCARDIA COMPARISON: Radiograph dated 07/10/2020. FINDINGS: LUNGS: Strandy bilater al infrahilar opacities, favored represent atelectasis. PLEURA: No pleura l effusion or pneumothorax. HEART AND MEDIASTINUM: The cardiomediastinal s ilhouette is unremarkable. Prominent central pulmonary vessels. IMPRESSIO N: 1. Cardiomegaly with pulmonary vascular congestion. No overt edema. 2 . Strandy bilateral infrahilar opacities are favored represent atelectasis. Signed by: Barbara Narvaez MD on 08/03/2020 12:36 AM Dictated By: BARBARA NARVAEZ MD Transcrib ed By: VIKA on 08/03/2035 COPY TO: SAV MOELLER MD CT BRAIN [id number] 00:16:00 [place] [address] Patient Name: Becky ORTIZ JR MR #: [id number] : 1940 Age/Sex: 80/M Req #: [id number] Adm Physician: Ordered by: SAV MOELLER MD Report #: [id number] Location: ER Room/Bed: Procedure: [id number] CT/CT EVITA Gramajo WO Exam Date: 08/02/20 Exam Time: 9 REPORT STATUS: Signed ADDENDUM #1 An MRI of the brain with and without contrast may be indicated, given the discrepancy of the findings on the CT with the described left weakn ess on physical exam. Signed by: Dr. Jimmy Mukherjee M.D. on 0 12:34 AM ORIGINAL REPORT History:Slurred speech Comparison studies: None Technique: Axial images were obtained from the skull base to the vertex. Coronal and sagittal images reconstructed from the axial data. Dose modulation, iterative reconstruction, and/or weight based adj ustment of the mA/kV was utilized to reduce the radiation dose to as low as r easonably achievable. Intravenous contrast: None Findings: Sca lp/skull: No abnormalities. Extra-axial spaces: No masses. No fluid collections. Brain sulci: Mildly prominent. Ventricles: Mild compensatory dilatation. No hydrocephalus. Parenchyma: An acute cortical vascular insult, which involves the supramarginal and angular gyri of the left inferior parietal lobule and the posterior aspect of the left superior temporal gyrus, is associated with an ill-defined, heterogeneous 1.2 cm hematoma (series 400, image 47, series 2, image 17 and series 401, image 48). Mass effect is regio nal. No shift. Subtle hypodensities in the supratentorial white matter are small vessel ischemic changes. No masses, hemorrhage, additional acute or c hronic cortical vascular insults. Sellar/suprasellar region: No abnormaliti es. Craniocervical junction: Patent foramen magnum. No Chiari one malformatio n. Incidental findings: Course calcifications in the intradural vertebral arteries and in the carotid siphons . Impression: 1. An acute, ear ly subacute, cortical, partially hemorrhagic left temporoparietal vascular ins ult has compromised the corresponding branches of the posterior division of th e left middle cerebral artery. 2. No additional acute abnormalities. 3. Dr. Moeller notified of the findings on 08/03/2020 1224 hours. Chroni c findings: 1. Mild age-related generalized volume loss. 2. Mild supratent orial white matter small vessel ischemic changes. Signed by: Dr. Jimmy Beaver M.D. on 08/03/2020 12:29 AM Dictated By: JIMMY MUKHERJEE MD, MD 0034 Fernández scribed By: VIKA on 08/03/20 0029 COPY TO: SAV MOELLER MD Blood leukocytes automated count (number/volume)2020-08-02 23:25:00* Test Item Value Reference Range Interpretation Comments White Blood Count (test code = 6690-2) 8.44 4.8-10.8 [facility] automated count (number/volume)2020-08-02 23:25:00* Test Item Value Reference Range Interpretation Comments Red Blood Count (test code = 789-8) 3.44 4.3-5.7 [facility]Blood hemoglobin measurement (moles/volume)2020-08-02 23:25:00* Test Item Value Reference Range Interpretation Comments Hemoglobin (test code = 23835-0) 9.7 14.0-18.0 [facility] HospitalAutomated blood hematocrit (volume fraction)2020-08-02 23:25:00* Test Item Value Reference Range Interpretation Comments Hematocrit (test code = 4544-3) 31.8 38.2-49.6 [facility] HospitalAutomated erythrocyte mean corpuscular wkacls4293-97-50 23:25:00* Test Item Value Reference Range Interpretation Comments Mean Corpuscular Volume (test code = 787-2) 92.4 81-99 [facility] HospitalAutomated erythrocyte mean corpuscular hemoglobin (mass per erythrocyte)2020-08-02 23:25:00* Test Item Value Reference Range Interpretation Comments Mean Corpuscular Hemoglobin (test code = 785-6) 28.2 28-32 [facility] HospitalAutomated erythrocyte mean corpuscular hemoglobin concentration measurement (mass/volume)2020-08-02 23:25:00* Test Item Value Reference Range Interpretation Comments Mean Corpuscular Hemoglobin Concent (test code = 786-4) 30.5 31-35 [facility] HospitalRDW CcfId-[id number] 23:25:00* Test Item Value Reference Range Interpretation Comments Red Cell Distribution Width (test code = 65999-4) 14.8 11.7 -14.4 [facility] HospitalAutomated blood platelet count (count/volume)2020-08-02 23:25:00* Test Item Value Reference Range Interpretation Comments Platelet Count (test code = 777-3) 332 140-360 [facility] HospitalAutomated blood segmented neutrophil count as percentage of total ejizjfmrhb3407-36-17 23:25:00* Test Item Value Reference Range Interpretation Comments Neutrophils (%) (Auto) (test code = 39833-2) 58.7 38.7-80.0 [facility] HospitalAutomated blood lymphocyte count as percentage ot total qzxejhuczw1268-47-03 23:25:00* Test Item Value Reference Range Interpretation Comments Lymphocytes (%) (Auto) (test code = 736-9) 24.6 18.0-39.1 [facility] HospitalAutomated blood monocyte count as percentage of total xamlhqbjmb9518-68-51 23:25:00* Test Item Value Reference Range Interpretation Comments Monocytes (%) (Auto) (test code = 5905-5) 12.3 4.4-11.3 [facility] HospitalAutomated blood eosinophil count as percentage of total snxngncfim3676-08-59 23:25:00* Test Item Value Reference Range Interpretation Comments Eosinophils (%) (Auto) (test code = 713-8) 3.4 0.0-6.0 [facility] HospitalAutomated blood basophil count as percentage of total wynoktvpfv8626-99-33 23:25:00* Test Item Value Reference Range Interpretation Comments Basophils (%) (Auto) (test code = 706-2) 0.6 0.0-1.0 [facility] HospitalFluoroscopic procedure less than one hour mpyrvolo5264-38-68 23:25:00* Test Item Value Reference Range Interpretation Comments IM GRANULOCYTES % (test code = IM GRANULOCYTES %) 0.4 0.0- 1.0 [facility] HospitalAutomated blood neutrophil count 2020-08-02 23:25:00* Test Item Value Reference Range Interpretation Comments Neutrophils # (Auto) (test code = 751-8) 5.0 2.1-6.9 [facility] HospitalBlood lymphocytes count (number/volume) 2020-08-02 23:25:00* Test Item Value Reference Range Interpretation Comments Lymphocytes # (Auto) (test code = 68081-5) 2.1 1.0-3.2 [facility] HospitalBlood monocytes automated count (number/volume)2020-08-02 23:25:00* Test Item Value Reference Range Interpretation Comments Monocytes # (Auto) (test code = 742-7) 1.0 0.2-0.8 [facility] HospitalAutomated blood eosinophil count 2020-08-02 23:25:00* Test Item Value Reference Range Interpretation Comments Eosinophils # (Auto) (test code = 711-2) 0.3 0.0-0.4 [facility] HospitalAutomated blood basophil count (count/volume)2020-08-02 23:25:00* Test Item Value Reference Range Interpretation Comments Basophils # (Auto) (test code = 704-7) 0.1 0.0-0.1 [facility] HospitalFluoroscopic procedure less than one hour euyieatz7143-64-40 23:25:00* Test Item Value Reference Range Interpretation Comments Absolute Immature Granulocyte (auto (nanci t code = Absolute Immature Granulocyte (auto) 0.03 0-0.1 [facility] HospitalProthrombin time (PT) in platelet poor plasma by coagulation dyubw5580-40-99 23:25:00* Test Item Value Reference Range Interpretation Comments Prothrombin Time (test code = 5902-2) 17.6 11.9-14.5 [facility] HospitalINR in Platelet poor plasma by Coagulation kjyyb5337-70-63 23:25:00* Test Item Value Reference Range Interpretation Comments Prothromb Time International Ratio (test code = 6301-6) 1.37 Oral Anticoagulant Therapy INR Values:1. Low Intensity Therapy 1.5 - 2.02 . Moderate Intensity Therapy 2.0 - 3.03. High Intensity Therapy(1) 2.5 - 3. 54. High Intensity Therapy(2) 3.0 - 4.05. Panic Value INR > 5.0 [facility] HospitalActivated partial thromboplastin time (aPTT) in platelet poor plasma by coagulation nuttp4003-84-08 23:25:00* Test Item Value Reference Range Interpretation Comments Activated Partial Thromboplast Time (test code = 41538-8) 47.6 23.8-35.5 [facility] plasma sodium measurement (moles/volume)2020-08-02 23:25:00* Test Item Value Reference Range Interpretation Comments Sodium Level (test code = 2951-2) 139 136-145 [facility]erum or plasma potassium measurement (moles/volume)2020-08-02 23:25:00* Test Item Value Reference Range Interpretation Comments Potassium Level (test code = 2823-3) 4.9 3.5-5.1 [facility]erum or plasma chloride measurement (moles/volume)2020-08-02 23:25:00* Test Item Value Reference Range Interpretation Comments Chloride Level (test code = 2075-0) 105 98-107 [facility] Houstonerum or plasma carbon dioxide, total measurement (moles/volume)2020-08-02 23:25:00* Test Item Value Reference Range Interpretation Comments Carbon Dioxide Level (test code = 2028-9) 24 22-29 [facility]erum or plasma anion yvl5607-69-75 23:25:00* Test Item Value Reference Range Interpretation Comments Anion Gap (test code = 64846-5) 14.9 8-16 [facility]erum or plasma urea nitrogen measurement (mass/volume)2020-08-02 23:25:00* Test Item Value Reference Range Interpretation Comments Blood Urea Nitrogen (test code = 3094-0) 33 7-26 [facility]erum or plasma creatinine measurement (mass/volume)2020-08-02 23:25:00* Test Item Value Reference Range Interpretation Comments Creatinine (test code = 2160-0) 2.46 0.72-1.25 [facility] Houstonerum or plasma urea nitrogen/creatinine mass xlles7227-65-21 23:25:00* Test Item Value Reference Range Interpretation Comments BUN/Creatinine Ratio (test code = 3097-3) 13 6-25 [facility] HospitalEstimated glomerular filtration rate (GFR) lbubmjsthxosr1083-19-62 23:25:00* Test Item Value Reference Range Interpretation Comments Estimat Glomerular Filtration Rate (test code = 088212707) 31 >60 Ranges were taken from the National Kidney Disease Education Program and the [facility] [employer] literature.Reference ranges:60 or greater: Fezacz82-87 ( for 3 consecutive months): Chronic kidney disease 15 or less: Kidney failureNacogdoches Memorial HospitalGlucose izmiflvifqd1089-79-84 23:25:00* Test Item Value Reference Range Interpretation Comments Glucose Level (test code = AKA4445) 124 74-118 [facility]erum or plasma calcium measurement (mass/volume)2020-08-02 23:25:00* Test Item Value Reference Range Interpretation Comments Calcium Level (test code = 06832-6) 8.9 8.4-10.2 [facility]erum or plasma total bilirubin measurement (mass/volume)2020-08-02 23:25:00* Test Item Value Reference Range Interpretation Comments Total Bilirubin (test code = 1975-2) 0.4 0.2-1.2 [facility] HospitalFluoroscopic procedure less than one hour bidibngj7478-87-41 23:25:00* Test Item Value Reference Range Interpretation Comments Aspartate Amino Transf (AST/SGOT) (test code = Aspartate Amino Transf (AST/SGOT)) 19 5-34 [facility]erum or plasma alanine aminotransferase measurement (enzymatic activity/volume)2020-08-02 23:25:00* Test Item Value Reference Range Interpretation Comments Alanine Aminotransferase (ALT/SGPT) (test code = 1742-6) 12 0-55 [facility]erum or plasma protein measurement (mass/volume)2020-08-02 23:25:00* Test Item Value Reference Range Interpretation Comments Total Protein (test code = 2885-2) 8.0 6.5-8.1 [facility]er[facility] or plasma albumin measurement (mass/volume)2020-08-02 23:25:00* Test Item Value Reference Range Interpretation Comments Albumin (test code = 1751-7) 3.4 3.5-5.0 [facility] HospitalPlasma globulin measurement (mass/volume) 2020-08-02 23:25:00* Test Item Value Reference Range Interpretation Comments Globulin (test code = 95474-0) 4.6 2.3-3.5 [facility]erum or plasma albumin/globulin mass wjwgd7266-82-83 23:25:00* Test Item Value Reference Range Interpretation Comments Albumin/Globulin Ratio (test code = 1759-0) 0.7 0.8-2.0 [facility]er[facility] or plasma alkaline phosphatase measurement (enzymatic activity/volume)2020-08-02 23:25:00* Test Item Value Reference Range Interpretation Comments Alkaline Phosphatase (test code = 6768-6) 67 40-150 [facility]er[facility] or plasma creatine kinase measurement (enzymatic activity/volume)2020-08-02 23:25:00* Test Item Value Reference Range Interpretation Comments Creatine Kinase (test code = 2157-6) 34 30-200 [facility] Houstonerum or plasma creatine kinase MB measurement (mass/volume)2020-08-02 23:25:00* Test Item Value Reference Range Interpretation Comments Creatine Kinase MB (test code = 24607-9) 1.20 0-5.0 [facility] HospitalTroponin I measurement by highly sensitive enzyme gfmcdlttgox9476-65-07 23:25:00* Test Item Value Reference Range Interpretation Comments Troponin I (test code = 57394-4) 0.031 0-0.300 [facility] HospitalBlood leukocytes automated count (number/volume)2020-07-18 05:20:00* Test Item Value Reference Range Interpretation Comments White Blood Count (test code = 6690-2) 12.59 4.8-10.8 [facility]ood erythrocytes automated count (number/volume)2020-07-18 05:20:00* Test Item Value Reference Range Interpretation Comments Red Blood Count (test code = 789-8) 3.52 4.3-5.7 [facility] HospitalBlood hemoglobin measurement (moles/volume)2020-07-18 05:20:00* Test Item Value Reference Range Interpretation Comments Hemoglobin (test code = 95144-5) 10.0 14.0-18.0 [facility] HospitalAutomated blood hematocrit (volume fraction)2020-07-18 05:20:00* Test Item Value Reference Range Interpretation Comments Hematocrit (test code = 4544-3) 32.4 38.2-49.6 [facility] HospitalAutomated erythrocyte mean corpuscular xckesl2205-37-60 05:20:00* Test Item Value Reference Range Interpretation Comments Mean Corpuscular Volume (test code = 787-2) 92.0 81-99 [facility] HospitalAutomated erythrocyte mean corpuscular hemoglobin (mass per erythrocyte)2020-07-18 05:20:00* Test Item Value Reference Range Interpretation Comments Mean Corpuscular Hemoglobin (test code = 785-6) 28.4 28-32 [facility] HospitalAutomated erythrocyte mean corpuscular hemoglobin concentration measurement (mass/volume)2020-07-18 05:20:00* Test Item Value Reference Range Interpretation Comments Mean Corpuscular Hemoglobin Concent (test code = 786-4) 30.9 31-35 [facility] HospitalRDW DwwUd-Vds6899-44-02 05:20:00* Test Item Value Reference Range Interpretation Comments Red Cell Distribution Width (test code = 74537-6) 14.8 11.7 -14.4 [facility] HospitalAutomated blood platelet count (count/volume)2020-07-18 05:20:00* Test Item Value Reference Range Interpretation Comments Platelet Count (test code = 777-3) 398 140-360 [facility] HospitalAutomated blood segmented neutrophil count as percentage of total oluwffyrew2253-17-80 05:20:00* Test Item Value Reference Range Interpretation Comments Neutrophils (%) (Auto) (test code = 93956-5) 65.3 38.7-80.0 [facility] HospitalAutomated blood lymphocyte count as percentage ot total iyofhaykji6350-40-50 05:20:00* Test Item Value Reference Range Interpretation Comments Lymphocytes (%) (Auto) (test code = 736-9) 18.6 18.0-39.1 [facility] HospitalAutomated blood monocyte count as percentage of total tckuhurdld3276-53-69 05:20:00* Test Item Value Reference Range Interpretation Comments Monocytes (%) (Auto) (test code = 5905-5) 9.1 4.4-11.3 [facility] HospitalAutomated blood eosinophil count as percentage of total yhwyntjacp6487-03-65 05:20:00* Test Item Value Reference Range Interpretation Comments Eosinophils (%) (Auto) (test code = 713-8) 4.9 0.0-6.0 [facility] HospitalAutomated blood basophil count as percentage of total yzyhadsapc1301-69-95 05:20:00* Test Item Value Reference Range Interpretation Comments Basophils (%) (Auto) (test code = 706-2) 0.4 0.0-1.0 [facility] HospitalFluoroscopic procedure less than one hour dyuqlpps8462-35-17 05:20:00* Test Item Value Reference Range Interpretation Comments IM GRANULOCYTES % (test code = IM GRANULOCYTES %) 1.7 0.0- 1.0 [facility] HospitalAutomated blood neutrophil count 2020-07-18 05:20:00* Test Item Value Reference Range Interpretation Comments Neutrophils # (Auto) (test code = 751-8) 8.2 2.1-6.9 [facility] HospitalBlood lymphocytes count (number/volume) 2020-07-18 05:20:00* Test Item Value Reference Range Interpretation Comments Lymphocytes # (Auto) (test code = 52533-3) 2.3 1.0-3.2 [facility] HospitalBlood monocytes automated count (number/volume)2020-07-18 05:20:00* Test Item Value Reference Range Interpretation Comments Monocytes # (Auto) (test code = 742-7) 1.2 0.2-0.8 [facility] HospitalAutomated blood eosinophil count 2020-07-18 05:20:00* Test Item Value Reference Range Interpretation Comments Eosinophils # (Auto) (test code = 711-2) 0.6 0.0-0.4 [facility] HospitalAutomated blood basophil count (count/volume)2020-07-18 05:20:00* Test Item Value Reference Range Interpretation Comments Basophils # (Auto) (test code = 704-7) 0.1 0.0-0.1 [facility] HospitalFluoroscopic procedure less than one hour pwpwgzkk4646-65-34 05:20:00* Test Item Value Reference Range Interpretation Comments Absolute Immature Granulocyte (auto (nanci t code = Absolute Immature Granulocyte (auto) 0.22 0-0.1 [facility] sodium measurement (moles/volume)2020-07-18 05:20:00* Test Item Value Reference Range Interpretation Comments Sodium Level (test code = 2951-2) 144 136-145 [facility] or plasma potassium measurement (moles/volume)2020-07-18 05:20:00* Test Item Value Reference Range Interpretation Comments Potassium Level (test code = 2823-3) 3.3 3.5-5.1 [facility] or plasma chloride measurement (moles/volume)2020-07-18 05:20:00* Test Item Value Reference Range Interpretation Comments Chloride Level (test code = 2075-0) 110 98-107 [facility] or plasma carbon dioxide, total measurement (moles/volume)2020-07-18 05:20:00* Test Item Value Reference Range Interpretation Comments Carbon Dioxide Level (test code = 2028-9) 21 22-29 [facility] or plasma anion fmf4810-89-12 05:20:00* Test Item Value Reference Range Interpretation Comments Anion Gap (test code = 21669-7) 16.3 8-16 [facility] plasma urea nitrogen measurement (mass/volume)2020-07-18 05:20:00* Test Item Value Reference Range Interpretation Comments Blood Urea Nitrogen (test code = 3094-0) 13 7-26 [facility] or plasma creatinine measurement (mass/volume)2020-07-18 05:20:00* Test Item Value Reference Range Interpretation Comments Creatinine (test code = 2160-0) 0.94 0.72-1.25 [facility] or plasma urea nitrogen/creatinine mass ahizx6136-40-99 05:20:00* Test Item Value Reference Range Interpretation Comments BUN/Creatinine Ratio (test code = 3097-3) 14 6-25 [facility] HospitalEstimated glomerular filtration rate (GFR) gyycnowwfcvgj7709-43-16 05:20:00* Test Item Value Reference Range Interpretation Comments Estimat Glomerular Filtration Rate (test code = 298431517) > 60 >60 Ranges were taken from the National Kidney Disease Education Program and the [facility] literature.Reference ranges:60 or greater: Ffvqtp30-90 ( for 3 consecutive months): Chronic kidney disease 15 or less: Kidney failureNacogdoches Memorial HospitalGlucose vwewwkkwupq3239-79-10 05:20:00* Test Item Value Reference Range Interpretation Comments Glucose Level (test code = FBQ2593) 113 74-118 [facility] or plasma calcium measurement (mass/volume)2020-07-18 05:20:00* Test Item Value Reference Range Interpretation Comments Calcium Level (test code = 87864-9) 8.7 8.4-10.2 [facility] or plasma total bilirubin measurement (mass/volume)2020-07-17 05:20:00* Test Item Value Reference Range Interpretation Comments Total Bilirubin (test code = 1975-2) 0.3 0.2-1.2 [facility] HospitalFluoroscopic procedure less than one hour cfhhytel0336-60-10 05:20:00* Test Item Value Reference Range Interpretation Comments Aspartate Amino Transf (AST/SGOT) (test code = Aspartate Amino Transf (AST/SGOT)) 32 5-34 [facility] or plasma alanine aminotransferase measurement (enzymatic activity/volume)2020-07-17 05:20:00* Test Item Value Reference Range Interpretation Comments Alanine Aminotransferase (ALT/SGPT) (test code = 1742-6) 13 0-55 [facility] or plasma protein measurement (mass/volume)2020-07-17 05:20:00* Test Item Value Reference Range Interpretation Comments Total Protein (test code = 2885-2) 6.8 6.5-8.1 [facility] or plasma albumin measurement (mass/volume)2020-07-17 05:20:00* Test Item Value Reference Range Interpretation Comments Albumin (test code = 1751-7) 2.9 3.5-5.0 [facility] HospitalPlasma globulin measurement (mass/volume) 2020-07-17 05:20:00* Test Item Value Reference Range Interpretation Comments Globulin (test code = 51882-0) 3.9 2.3-3.5 [facility] or plasma albumin/globulin mass eqhvr2750-66-72 05:20:00* Test Item Value Reference Range Interpretation Comments Albumin/Globulin Ratio (test code = 1759-0) 0.7 0.8-2.0 [facility] or plasma alkaline phosphatase measurement (enzymatic activity/volume)2020-07-17 05:20:00* Test Item Value Reference Range Interpretation Comments Alkaline Phosphatase (test code = 6768-6) 48 40-150 [facility] HospitalCapillary blood glucose measurement by glucometer (mass/volume)2020-07-16 11:13:00* Test Item Value Reference Range Interpretation Comments Bedside Glucose (test code = 31250-5) 111 70-120 Meter ID: [id number] HospitalActivated partial thromboplastin time (aPTT) in platelet poor plasma by coagulation assay 2020-07-15 05:21:00* Test Item Value Reference Range Interpretation Comments Activated Partial Thromboplast Time (test code = 31569-0) 72.2 23.8-35.5 [facility] HospitalPhosphorus soscejtpare4625-68-42 05:21:00 * Test Item Value Reference Range Interpretation Comments Phosphorus Level (test code = SHN7279) 2.5 2.3-4.7 [facility] or plasma magnesium measurement (mass/volume)2020-07-15 05:21:00* Test Item Value Reference Range Interpretation Comments Magnesium Level (test code = 38263-0) 1.6 1.3-2.1 [facility] HospitalPhosphorus xfcfpyrezgs1137-29-65 05:21:00 * Test Item Value Reference Range Interpretation Comments Phosphorus Level (test code = WOW5757) 2.5 2.3-4.7 [facility] or plasma magnesium measurement (mass/volume)2020-07-15 05:21:00* Test Item Value Reference Range Interpretation Comments Magnesium Level (test code = 63908-0) 1.6 1.3-2.1 [facility]d-yQkd5785-75-66 04:55:00* Test Item Value Reference Range Interpretation Comments B-Type Natriuretic Peptide (test code = 10949-2) 351.6 0-100 [facility]-gJtf7544-97-37 04:55:00* Test Item Value Reference Range Interpretation Comments B-Type Natriuretic Peptide (test code = 06049-5) 351.6 0-100 [facility] HospitalCapillary blood glucose measurement by glucometer (mass/volume)2020-07-12 20:54:00* Test Item Value Reference Range Interpretation Comments Bedside Glucose (test code = 10124-9) 141 70-120 Meter ID: [id number] [facility] HospitalMODIFIED BA. SWALLOW 2020-07-12 12:01:00 [facility] [address] [place] [address] Patient Name: Becky ORTIZ JR MR #: [id number] : 1940 Age/Sex: 80/M Req #: [id number] Adm Physician: BARBARA FERNÁNDEZ MD Ordered by: SHARIF DIEGO MD Report #: [id number] Location: MED/SURG Room/Bed: [facility] Procedure: [id number] DX/MODIFIED BA. GRUPO CHAU Exam Date: 07/11/20 Exam Time: 1130 REPORT STATUS: Signed PROCEDURE: X-RAY RAFAEL FIED BARIUM SWALLOW COMPARISON: None. INDICATION: Aspiration Rad iation Details: Fluoroscopy time: 2.2 minutes Cumulative dose: 12.1 mGy DISCUSSION: Fluoroscopic examination was performed in conjunction with speech pathology during swallowing a variety of thin and thick liquid consistencies. Provided images demonstrate trace laryngeal penetration and aspiration. C ONCLUSION: Modified barium swallow demonstrating trace laryngeal penetration and aspiration. Please refer to the speech pathology report for further detail s. Signed by: Brittany Patel MD on 07/12/2020 12:01 PM Dictated By: CRUZ PATEL MD 00 Transcribed By: VIKA on 07/12/201200 COPY TO: SHARIF DIEGO MD Ammonia Reh-lOba7165-83-26 14:09:00* Test Item Value Reference Range Interpretation Comments Ammonia (test code = 78956-5) 58 31-123 [facility] HospitalAmmonia Nqe-jQlq6739-20-26 14:09:00* Test Item Value Reference Range Interpretation Comments Ammonia (test code = 05459-9) 58 31-123 [facility] HospitalCHES SINGLE (PORTABLE)2020-07-10 08:37:00 [facility] [address] [place] [address] Patient Name: Becky ORTIZ JR MR #: [id number] : 1940 Age/Sex: 80/M Req #: [id number] Adm Physician: BARBARA FERNÁNDEZ MD Ordered by: SHARIF DIEGO MD Report #: [id number] Location: ICU Room/Bed: ICU [facility] Procedure: [id number] DX/CHEST SINGLE (PO RTABLE) Exam Date: 07/10/20 Exam Time: 0545 REPORT STATUS: Signed EXAMINATION: CHEST SINGLE (PORTABLE) INDICATION: Chest pain, pulmonary edema COMPAR DANIEL: Chest radiograph of 05/03/2020 FINDINGS: LINES/TUBES:Left IJ central venous catheter terminates in the upper SVC. Enteric tube projects be low the diaphragm with tip not visualized. EKG leads overlie the chest. L UNGS:The lungs are moderately inflated. There is perihilar fullness and indist inctness of the pulmonary vasculature. PLEURA:No pleural effusion or pneumo thorax. Skin fold along the lateral left thorax. MEDIASTINUM:Cardiomedias tinal silhouette is stably enlarged. BONES/SOFT TISSUES:No acute osseous in jury. ABDOMEN:No free air under the diaphragm. IMPRESSION: Cardi omegaly and pulmonary interstitial edema. Signed by: rBittany Patel MD on 07/10 8:39 AM Dictated By: BRITTANY PATEL MD 8 Transcribed By: VIKA on 07/10/2039 COPY T O: SHARIF DIEGO MD CT LEFT LOWER EXTREMITY RK4067-32-43 17:06:00 [id number] [place] [address] Patient Name: Becky ORTIZ JR MR #: [id number] : 1940 Age/Sex: 80/M Req #: [id number] Adm Physician: BARBARA FERNÁNDEZ MD Ordered by: SHARIF DIEGO MD Report #: [id number] Location: ICU Room/Bed: ICU [facility] Procedure: [id number] CT/CT LEFT LOWER E XTREMITY WO Exam Date: 07/09/20 Exam Time: 1640 REPORT STATUS: Signed EXAM: CT of the left thigh without contrast INDICATION: Left thigh pain after fall. Clin ical concern for negative fasciitis. COMPARISON: None available. RADHA HNIQUE: Multidetector CT scanning of the site was performed. Coronal and sagi ttal multiplanar reformations were obtained. RADIATION DOSE: Total DLP: 773.41 mGy*cm Estimated effective dose: (DLP x 0.014 x size factor) mSv CTDIvol has been reviewed. It is below the limits set by the Radiatio n Protocol Committee (RPC). Dose modulation, iterative reconstruction, and/or weight based adjustment of the mA/kV was utilized to reduce the radiati on dose to as low as reasonably achievable. FINDINGS: Bones: No ac sav displaced fracture identified. No osteolytic or osteoblastic lesions. Joints: No evidence of dislocation. There are moderate degenerative changes of the left hip and knee characterized by joint space narrowing, subchondral sc lerosis, subchondral cystic changes and marginal osteophytes. Soft Tissues: There is diffuse subcutaneous soft tissue edema which does not extend into the deep muscular compartments. No drainable fluid collection. No subcutaneous e mphysema. There is severe atherosclerotic calcification of the lower extremity vasculature. There is scrotal edema. Imaged pelvis: Atherosclerotic calcif ication of the pelvic vasculature. Pelvic structures are otherwise unremarkabl e. IMPRESSION: 1. No acute fracture or evidence of dislocation. 2. Diffuse subcutaneous soft tissue edema which can be seen with cellulitis. No drainable fluid collection. No imaging evidence of necrotizing fasciitis. T he absence of image findings consistent with necrotizing fasciitis does not ob liquely exclude its clinical presence. 3. Scrotal edema. Signed by: Ophelia Pike MD on 07/09/2020 5:39 PM Dictated By: SAMIR PIKE MD Electro nically Signed By: SAMIR PIKE MD on 07/09/201738 Transcribed By: VIKA gramajo 07/09/201738 COPY TO: SHARIF DIEGO MD RENAL RETROPERITONEAL [id number] 09:41:00 [place] [address] Patient Name: Becky ORTIZ JR MR #: [id number] : 1940 Age/Sex: 80/M Req #: [id number] Adm Physician: BARBARA FERNÁNDEZ MD Ordered by: ROCIO ROCHA MD Report #: [id number] Location: ICU Room/Bed: ICU [facility] Procedure: [id number] US/US RENAL RETROPE RITONEAL COMP Exam Date: 07/09/20 Exam Time: 0812 REPORT STATUS: Signed Renal ultras ound. History: Acute renal failure. Comparison: CT dated 08/24/2019. Discussion: Transverse and longitudinal images of the kidneys were obtained demonstrating normal renal sizes and echogenicities. There is no evidence of hydronephrosis, mass, or renal calculus. The right kidney measures 11.4 cm and the left kidney measures 12.9 cm in length. Multiple cysts are identified at the mid aspect of the right kidney. The urinary bladder is decompressed by Woodall catheter. There is no evidence of free fluid. Incidentally noted are ech ogenic filling defects within the decompressed gallbladder. IMPRESSION : 1. Negative for hydronephrosis or perinephric fluid collection. 2. Inc identally noted cholelithiasis. Signed by: Johnny Peck MD on 07/09/2020 9:4 3 AM Dictated By: JOHNNY PECK MD 2 Transcribed By: VIKA on 07/09/20942 COPY TO: ROCIO ROCHA MD CHEST SINGLE (PORTABLE)2020-07-09 08:19:00 [place] [address] Patient Name: Becky ORTIZ JR MR #: [id number] : 1940 Age/Sex: 80/M Req #: [id number] Adm Physician: BARBARA FERNÁNDEZ MD Ordered by: SHARIF DIEGO MD Report #: [id number] Location: ICU Room/Bed: ICU [facility] Procedure: [id number] DX/CHEST SINGLE (PO RTABLE) Exam Date: 07/09/20 Exam Time: 528 REPORT STATUS: Signed TECHNIQUE: Frontal view of the chest. INDICATION: chf [id number] COMPARISON: Prior day. DISCUSSION: Limited evaluation due to portable technique. Lines and hardware: Stable. Heart and mediastinum: Stable. Lungs and ple ura: Prominent interstitial markings and central vascular congestion are stabl e. Negative for new focal consolidation. Negative for large pneumothorax. Trac e effusions are noted. Soft tissues and bones: No acute abnormality. IMPR ESSION: Stable exam. Signed by: Johnny Peck MD on 07/09/2020 8:2 0 AM Dictated By: JOHNNY PECK MD 9 Transcribed By: VIKA on 07/09/20819 COPY TO: SHARIF DIEGO MD Random serum or plasma vancomycin measurement (mass/volume)2020-07-09 04:42:00* Test Item Value Reference Range Interpretation Comments Random Vancomycin Level (test code = 45445-8) 3.9 [facility] serum or plasma vancomycin measurement (mass/volume)2020-07-09 04:42:00* Test Item Value Reference Range Interpretation Comments Random Vancomycin Level (test code = 62912-0) 3.9 [facility] HospitalArterial blood pH pnlqnlitjku6610-16-67 13:20:00* Test Item Value Reference Range Interpretation Comments Arterial Blood pH (test code = 2744-1) 7.43 7.35-7.45 [facility] HospitalpCO2 XvrR6308-69-94 13:20:00* Test Item Value Reference Range Interpretation Comments Arterial Blood Partial Pressure CO2 (test code = 2019-06) 32 35-45 [facility] HospitalpCO2 BrkY8912-68-84 13:20:00* Test Item Value Reference Range Interpretation Comments Arterial Blood Partial Pressure O2 (test code = 2019-06) 75 80-105 [facility] HospitalArterial blood bicarbonate measurement (moles/volume)2020-07-08 13:20:00* Test Item Value Reference Range Interpretation Comments Arterial Blood HCO3 (test code = 1960-4) 21 22-26 [facility] HospitalArterial cord blood carbon dioxide, total measurement by calculation (moles/volume)2020-07-08 13:20:00* Test Item Value Reference Range Interpretation Comments Arterial Blood Total CO2 (test code = 65939-2) 22 [facility] HospitalAr[facility]ial blood base excess by calculation 2020-07-08 13:20:00* Test Item Value Reference Range Interpretation Comments Arterial Blood Base Excess (test code = 1925-7) -3.0 -2-3 [facility] HospitalArterial blood oxygen saturation xgzowousolk3862-51-01 13:20:00* Test Item Value Reference Range Interpretation Comments Arterial Blood Oxygen Saturation (test code = 2708-6) 95.0 95-98 [facility] HospitalFluoroscopic procedure less than one hour bdwdzreh1800-59-21 13:20:00* Test Item Value Reference Range Interpretation Comments FiO2 (test code = FiO2) 40 BIPAP 05/07 RR20 40% RIGHT RADIALNacogdoches [facility] Hospital Arterial blood pH ankaevtwwxd9479-12-22 13:20:00* Test Item Value Reference Range Interpretation Comments Arterial Blood pH (test code = 2744-1) 7.43 7.35-7.45 [facility] HospitalpCO2 BxkK2038-15-00 13:20:00* Test Item Value Reference Range Interpretation Comments Arterial Blood Partial Pressure CO2 (test code = 2018-8) 32 35-45 [facility] HospitalpCO2 PvrM4943-33-93 13:20:00* Test Item Value Reference Range Interpretation Comments Arterial Blood Partial Pressure O2 (test code = 2018-) 75 80-105 [facility] HospitalArterial blood bicarbonate measurement (moles/volume)2020-07-08 13:20:00* Test Item Value Reference Range Interpretation Comments Arterial Blood HCO3 (test code = 1960-4) 21 22-26 [facility] HospitalArterial cord blood carbon dioxide, total measurement by calculation (moles/volume)2020-07-08 13:20:00* Test Item Value Reference Range Interpretation Comments Arterial Blood Total CO2 (test code = 20586-6) 22 [facility] HospitalArterial blood base excess by calculation 2020-07-08 13:20:00* Test Item Value Reference Range Interpretation Comments Arterial Blood Base Excess (test code = 1925-7) -3.0 -2-3 [facility] HospitalArterial blood oxygen saturation advtkjsmipe9600-70-90 13:20:00* Test Item Value Reference Range Interpretation Comments Arterial Blood Oxygen Saturation (test code = 2708-6) 95.0 95-98 [facility] HospitalFluoroscopic procedure less than one hour roibiuga3426-45-39 13:20:00* Test Item Value Reference Range Interpretation Comments FiO2 (test code = FiO2) 40 BIPAP 05/07 RR20 40% RIGHT RADIALCHI [facility] HospitalCHEST SINGLE (PORTABLE)2020-07-08 06:39:00 [place] [address] Patient Name: Becky ORTIZ JR MR #: [id number] : 1940 Age/Sex: 80/M Req #: [id number] Adm Physician: BARBARA FERNÁNDEZ MD Ordered by: JESSICA SENA MD Report #: [id number] Location: ICU Room/Bed: ICU [facility] Procedure: [id number] DX/CHEST SINGLE (PO RTABLE) Exam Date: Exam Time: REPORT STATUS: Signed EXAMINATION: CHEST SINGLE (PO RTABLE) INDICATION: Respiratory failure COMPARISON: Chest x- ray 07/07/2020 FINDINGS: TUBES and LINES: Left IJ central ric ous catheter, tip in the mid SVC. Enteric tube courses into the abdomen with t ip in the right upper abdomen. LUNGS: Normal lung volumes. Central and lo wer lung airspace haziness. Prominent interstitial lung markings. Perceptible right minor fissure. Prominent pulmonary vasculature. PLEURA: Small bilateral pleural effusions. No pneumothorax. HEART AND MEDIASTINUM: Card iac size is moderately enlarged. BONES AND SOFT TISSUES: No acute osse ous lesion. Soft tissues are unremarkable. UPPER ABDOMEN: No free air un leah the diaphragm. IMPRESSION: Exam unchanged compared to day marylou or. Signed by: Joseph Keen DO on 07/08/2020 6:40 AM Dictated By: JOSEPH KEEN DO 0 640 Transcribed By: VIKA on 07/08/20 0640 COPY TO: JESSICA SENA MD CHEST SINGLE (PORTABLE)2020-07-08 06:39:00 [place] [address] Patient Name: Becky ORTIZ JR MR #: [id number] : 1940 Age/Sex: 80/M Req #: [id number] Adm Physician: BARBARA FERNÁNDEZ MD Ordered by: JESSICA SENA MD Report #: [id number] Location: ICU Room/Bed: ICU [facility] Procedure: [id number] DX/CHEST SINGLE (PO RTABLE) Exam Date: 07/08/20 Exam Time: 05 REPORT STATUS: Signed EXAMINATION: CHEST SINGLE (PORTABLE) INDICATION: Respiratory failure COMPARISON: Chest x-ray 07/07/2020 FINDINGS: TUBES and LINES: Left IJ central venous catheter, tip in the mid SVC. Enteric tube courses into the ab domen with tip in the right upper abdomen. LUNGS: Normal lung volumes. Ce ntral and lower lung airspace haziness. Prominent interstitial lung markings. Perceptible right minor fissure. Prominent pulmonary vasculature. PL EURA: Small bilateral pleural effusions. No pneumothorax. HEART AND MEDIAS TINUM: Cardiac size is moderately enlarged. BONES AND SOFT TISSUES: N o acute osseous lesion. Soft tissues are unremarkable. UPPER ABDOMEN: No free air under the diaphragm. IMPRESSION: Exam unchanged compared to day prior. Signed by: Joseph Keen DO on 07/08/2020 6:40 AM D ictated By: JOSEPH KEEN DO 9 COPY TO: JESSICA SENA MD Fluoroscopic procedure less than one hour psfyvupo2378-36-28 06:30:00* Test Item Value Reference Range Interpretation Comments Hemoglobin A1c Percent (test code = Hemoglobin A1c Percent) 6.3 4.0-7.0 [facility] triglyceride measurement (mass/volume)2020-07-08 06:30:00* Test Item Value Reference Range Interpretation Comments Triglycerides Level (test code = 2571-8) 64 0-149 [facility] or plasma cholesterol measurement (mass/volume)2020-07-08 06:30:00* Test Item Value Reference Range Interpretation Comments Cholesterol Level (test code = 2093-3) 87 0-199 Less than 200 mg/dL Low Pdut296 - 239 mg/dL Borderline Gsuk696 m g/dl and greater High Risk [facility] plasma cholesterol in LDL measurement (mass/volume) 2020-07-08 06:30:00* Test Item Value Reference Range Interpretation Comments LDL Cholesterol (test code = 2089-1) 43 60-130 [facility] plasma cholesterol in HDL measurement (mass/volume)2020-07-08 06:30:00* Test Item Value Reference Range Interpretation Comments HDL Cholesterol (test code = 2085-9) 31 40-60 [facility] or plasma total cholesterol/cholesterol in HDL mass htbkl1920-05-70 06:30:00* Test Item Value Reference Range Interpretation Comments Cholesterol/HDL Ratio (test code = 9830-1) 2.8 3.9-4.7 [facility] or plasma thyrotropin measurement by detection limit <= 0.005 miu/l (units/volume)2020-07-08 06:30:00* Test Item Value Reference Range Interpretation Comments Thyroid Stimulating Hormone (TSH) (test code = 38327-9) 0.531 0.350-4.940 [facility] HospitalFluoroscopic procedure less than one hour inlhhjgv0457-84-91 06:30:00* Test Item Value Reference Range Interpretation Comments Hemoglobin A1c Percent (test code = Hemoglobin A1c Percent) 6.3 4.0-7.0 [facility] or plasma triglyceride measurement (mass/volume)2020-07-08 06:30:00* Test Item Value Reference Range Interpretation Comments Triglycerides Level (test code = 2571-8) 64 0-149 [facility] or plasma cholesterol measurement (mass/volume)2020-07-08 06:30:00* Test Item Value Reference Range Interpretation Comments Cholesterol Level (test code = 2093-3) 87 0-199 Less than 200 mg/dL Low Txzi009 - 239 mg/dL Borderline Vtpk997 m g/dl and greater High Risk [facility] cholesterol in LDL measurement (mass/volume) 2020-07-08 06:30:00* Test Item Value Reference Range Interpretation Comments LDL Cholesterol (test code = 2089-1) 43 60-130 [facility] [facility] in HDL measurement (mass/volume)2020-07-08 06:30:00* Test Item Value Reference Range Interpretation Comments HDL Cholesterol (test code = 2085-9) 31 40-60 [facility] total cholesterol/cholesterol in HDL mass fbnaf6940-55-39 06:30:00* Test Item Value Reference Range Interpretation Comments Cholesterol/HDL Ratio (test code = 9830-1) 2.8 3.9-4.7 [facility] plasma thyrotropin measurement by detection limit <= 0.005 miu/l (units/volume)2020-07-08 06:30:00* Test Item Value Reference Range Interpretation Comments Thyroid Stimulating Hormone (TSH) (test code = 39123-2) 0.531 0.350-4.940 [facility]2020-[facility]-07 19:42:00 [facility] [address] [place] [address] Patient Name: Becky ORTIZ JR MR #: [id number] : 1940 Age/Sex: 80/M Req #: [id number] Adm Physician: BARBARA FERNÁNDEZ MD Ordered by: EL LAZO DO Report #: [id number] Location: ICU Room/Bed: ICU 192- Procedure: [id number] DX/ABDOMEN-1VIE W (KUB) Exam Date: 07/07/20 Exam Time: 1820 REPORT STATUS: Signed EXAM: Abdomen Radi ograph 1 View INDICATION: NG tube placement, verify position COMPARISON : Chest CT 07/06/2020 FINDINGS: Enteric tube courses into abdomen, tip in the right upper quadrant. Opacities in the lower lungs. No acute osseous or soft tissue pneumonia. Degenerative changes in the spine. No disproportionate small bowel gaseous dilation. IMPRESSION: Enteric tube courses into abdomen, tip in the right upper quadrant. Pneumonia atelectasis and pleural effusions in the lower chest. Signed by: Joseph Keen DO on 07/07/2020 7 :43 PM Dictated By: JOSEPH KEEN DO 42 Transcribed By: VIKA on 07/07/201942 C OPY TO: EL LAZO DO ABDOMEN-1VIEW (KUB)2020-07-07 19:42:00 [place] [address] Patient Name: Becky ORTIZ JR MR #: [id number] : 1940 Age/Sex: 80/M Req #: [id number] Adm Physician: BARBARA FERNÁNDEZ MD Ordered by: EL LAZO DO Report #: [id number] Location: ICU Room/Bed: ICU 192 Procedure: DX/ABDOMEN-1VIE W (KULouis) Exam Date: 07/07/20 Exam Time: 1821 REPORT STATUS: Signed EXAM: Abdomen Radi ograph 1 View INDICATION: NG tube placement, verify position COMPARISON : Chest CT 07/06/2020 FINDINGS: Enteric tube courses into abdomen, tip in the right upper quadrant. Opacities in the lower lungs. No acute osseous or soft tissue pneumonia. Degenerative changes in the spine. No disproportionate small bowel gaseous dilation. IMPRESSION: Enteric tube courses into abdomen, tip in the right upper quadrant. Pneumonia atelectasis and pleural effusions in the lower chest. Signed by: Joseph Keen DO on 07/07/2020 7 :43 PM Dictated By: JSOEPH KEEN DO 42 Transcribed By: VIKA on 07/07/201942 C OPY TO: EL LAZO DO CHEST SINGLE (PORTABLE)2020-07-07 09:29:00 [place] [address] Patient Name: Becky ORTIZ JR MR #: [id number] : 1940 Age/Sex: 80/M Req #: [id number] Adm Physician: BARBARA FERNÁNDEZ MD Ordered by: JESSICA SENA MD Report #: [id number] Location: ICU Room/Bed: ICU 192 Procedure: DX/CHEST SINGLE (PO RTABLE) Exam Date: 07/07/20 Exam Time: 528 REPORT STATUS: Signed EXAMINATION: CHEST SINGLE (PORTABLE) INDICATION: CHF COMPARISON: Chest radiograph 07-06-2020. FINDINGS: TUBES and LINES: Endotracheal tube and left IJ central venous catheter in unchanged position. Overlying EKG leads. DEBBIE GS: Persistent bilateral interstitial and airspace opacities, lower lung pred ominant. PLEURA: Small bilateral pleural effusions. No pneumothorax. H EART AND MEDIASTINUM: The cardiomediastinal silhouette is mildly enlarged. At herosclerotic calcifications of the aortic arch. BONES AND SOFT TISSUES: N o acute osseous lesion. Soft tissues are unremarkable. UPPER ABDOMEN: No free air under the diaphragm. IMPRESSION: Cardiomegaly with persist ent pulmonary edema and small bilateral pleural effusions. Superimposed pneumo sofia is possible in the appropriate clinical setting. Signed by: Dr. Ted Mcfarland MD on 07/07/2020 9:31 AM Dictated By: ARPIT MCFARLAND MD 0 Transcribed By: VIKA on 07/07/20930 COPY TO: JESSICA SENA MD CHEST SINGLE (PORTABLE)2020-07-07 09:29:00 [place] [address] Patient Name: Becky ORTIZ JR MR #: [id number] : 1940 Age/Sex: 80/M Req #: [id number] Adm Physician: BARBARA FERNÁNDEZ MD Ordered by: JESSICA SENA MD Report #: [id number] Location: ICU Room/Bed: ICU [facility] Procedure: DX/CHEST SINGLE (PO RTABLE) Exam Date: 07/07/20 Exam Time: 528 REPORT STATUS: Signed EXAMINATION: CHEST SINGLE (PORTABLE) INDICATION: CHF COMPARISON: Chest radiograph 07-06-2020. FINDINGS: TUBES and LINES: Endotracheal tube and left IJ central venous catheter in unchanged position. Overlying EKG leads. DEBBIE GS: Persistent bilateral interstitial and airspace opacities, lower lung pred ominant. PLEURA: Small bilateral pleural effusions. No pneumothorax. H EART AND MEDIASTINUM: The cardiomediastinal silhouette is mildly enlarged. At herosclerotic calcifications of the aortic arch. BONES AND SOFT TISSUES: N o acute osseous lesion. Soft tissues are unremarkable. UPPER ABDOMEN: No free air under the diaphragm. IMPRESSION: Cardiomegaly with persist ent pulmonary edema and small bilateral pleural effusions. Superimposed pneumo sofia is possible in the appropriate clinical setting. Signed by: Dr. Ted Mcfarland MD on 07/07/2020 9:31 AM Dictated By: ARPIT MCFARLAND MD 0 Transcribed By: VIKA on 07/07/20930 COPY TO: JESSICA SENA MD CHEST XRAY LINE [id number] 09:24:00 [place] [address] Patient Name: Becky ORTIZ JR MR #: [id number] : 1940 Age/Sex: 80/M Req #: [id number] Adm Physician: BARBARA FERNÁNDEZ MD Ordered by: REINALDO FERNÁNDEZ DO Report #: [id number] Location: ICU Room/Bed: ICU [facility] Procedure: [id number] DX/CHEST XRAY LINE PLACEMENT Exam Date: 07/06/20 Exam Time: 2244 REPORT STATUS: Signed EXAMINATION: C HEST XRAY LINE PLACEMENT INDICATION: line placement COMPARISON: C hest radiograph 07-06-2020. CT chest 07-06-2020. FINDINGS: TUBES and L MAXI: Endotracheal tube in unchanged position. Interval placement of left IJ central venous catheter which terminates in the expected location of the upper SVC near the brachiocephalic confluence. LUNGS: Lungs are well inflated. Persistent bilateral interstitial and airspace opacities. PLEURA: No ple ural effusion or pneumothorax. HEART AND MEDIASTINUM: The cardiac silhouet te is unchanged accounting for differences in technique. Mild cardiomegaly and prominence of the roderick. There is indistinctness of the aortic arch. BONES AND SOFT TISSUES: No acute osseous lesion. Soft tissues are unremarkable. UPPER ABDOMEN: No free air under the diaphragm. IMPRESSION: End otracheal tube in unchanged position. Interval placement of left IJ central ve nous catheter which terminates in the upper SVC. No evidence of pneumothorax. Indistinctness of the aortic arch, which may be artifactual. Please refer to subsequent CT report. Persistent findings of multifocal aspiration or pn eumonia, possibly with superimposed pulmonary edema. Signed by: Dr. Ted Mcfarland MD on 07/07/2020 9:28 AM Dictated By: ARPIT MCFARLAND MD 7 Transcribed By: VIKA on 07/07/20927 COPY TO: REINALDO FERNÁNDEZ DO CHEST XRAY LINE PLACEMENT 2020-07-07 09:24:00 [place] [address] Patient Name: Becky ORTIZ JR Kate MR #: [id number] : 1940 Age/Sex: 80/M Req #: [id number] Adm Physician: BARBARA FERNÁNDEZ MD Ordered by: REINALDO FERNÁNDEZ DO Report #: [id number] Location: ICU Room/Bed: ICU [facility] Procedure: [id number] DX/CHEST XRAY LINE PLACEMENT Exam Date: 07/06/20 Exam Time: 5 REPORT STATUS: Signed EXAMINATION: C HEST XRAY LINE PLACEMENT INDICATION: line placement COMPARISON: C hest radiograph 07-06-2020. CT chest 07-06-2020. FINDINGS: TUBES and L MAXI: Endotracheal tube in unchanged position. Interval placement of left IJ central venous catheter which terminates in the expected location of the upper SVC near the brachiocephalic confluence. LUNGS: Lungs are well inflated. Persistent bilateral interstitial and airspace opacities. PLEURA: No ple ural effusion or pneumothorax. HEART AND MEDIASTINUM: The cardiac silhouet te is unchanged accounting for differences in technique. Mild cardiomegaly and prominence of the roderick. There is indistinctness of the aortic arch. BONES AND SOFT TISSUES: No acute osseous lesion. Soft tissues are unremarkable. UPPER ABDOMEN: No free air under the diaphragm. IMPRESSION: End otracheal tube in unchanged position. Interval placement of left IJ central ve nous catheter which terminates in the upper SVC. No evidence of pneumothorax. Indistinctness of the aortic arch, which may be artifactual. Please refer to subsequent CT report. Persistent findings of multifocal aspiration or pn eumonia, possibly with superimposed pulmonary edema. Signed by: Dr. Ted Mcfarland MD on 07/07/2020 9:28 AM Dictated By: ARPIT MCFARLAND MD 7 Transcribed By: VIKA on 07/07/20927 COPY TO: REINALDO FERNÁNDEZ DO Serum or plasma creatine kinase measurement (enzymatic activity/volume)2020-07-07 05:00:00* Test Item Value Reference Range Interpretation Comments Creatine Kinase (test code = 2157-6) 281 30-200 [facility] creatine kinase MB measurement (mass/volume)2020-07-07 05:00:00* Test Item Value Reference Range Interpretation Comments Creatine Kinase MB (test code = 08099-6) 54.50 0-5.0 [facility] by highly sensitive enzyme lbanhzkwarc7163-07-28 05:00:00* Test Item Value Reference Range Interpretation Comments Troponin I (test code = 37542-9) 12.175 0-0.300 Elevated result called to JENNIFER HARDY RN at 0935 on 07/07/20 by Caroline Frazier ey.[facility] [id number] 02:11:00 [facility] [address] [place] [address] Patient Name: Becky ORTIZ JR MR #: [id number] : 1940 Age/Sex: 80/M Req #: [id number] Adm Physician: BARBARA FERNÁNDEZ MD Ordered by: REINALDO FERNÁNDEZ DO Report #: [id number] Location: ICU Room/Bed: ICU [facility] Procedure: [id number] CT/CT CHEST W Sol m Date: 07/06/20 Exam Time: 2320 REPORT STATUS: Signed EXAM: CT Chest WITH contrast 11:20 PM INDICATION: Chest pain, hypoxia , respiratory failure COMPARISON: None TECHNIQUE: Chest was scanned utilizing a multidetector helical scanner from the lung apex through the level of the adrenal glands wi th administration of IV contrast. Coronal and sagittal reformations were obtai bonny. Routine protocol was performed. IV CONTRAST: 100 mL of Isovue 370 COMPLICATIONS: None RADIATION DOSE: Total DLP: 563 mGy*cm Estimated effective dose: (DLP x 0.014 x size factor) mSv CTDIvol has been reviewed. It is below the limits set by the Radiation Protocol Committee (RPC). Dose modulation, iterative reconstruction, and/or weight based adj ustment of the mA/kV was utilized to reduce the radiation dose to as low as re asonably achievable. FINDINGS: LINES/ TUBES: ET tube tip 5.2 cm above pennie. LUNGS AND AIRWAYS: Depending consolidations in both lungs and partial dependent atelectasis, with air bronchograms. Groundglass haziness in the nondependent lungs. Airways are normal. PLEURA: Small bilateral pl eural effusions. HEART AND MEDIASTINUM: The thyroid gland is normal. No pearson spicious mediastinal, hilar or axillary lymphadenopathy. The heart is normal in size. There is no pericardial effusion. Calcific location of the aorta and major branches including the coronary arteries. Mitral annular and aortic valv e calcifications. Calcified right hilar lymph nodes. Main pulmonary artery dilation, 4.47 m in diameter. UPPER ABDOMEN: Unremarkable. BONES: H ealed fractures of left ribs 2-8. Degenerative changes. SOFT TISSUES: Gynec omastia.. 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 Small bilateral ple ural effusions. Dilated main pulmonary artery indicative of pulmonary hyperten jessika. Suspect pulmonary edema. Bilateral lung dependent atelectasis/cons olidation, in the presence of esophageal fluid distention, can be due to aspir ation pneumonia. Signed by: Joseph Keen DO on 07/07/2020 2:19 AM Dictated By: JOSEPH KEEN DO 8 Transcribed By: VIKA on 07/07/20218 COPY TO: REINALDO FERNÁNDEZ DO CT CHEST [id number] 02:11:00 [place] [address] Patient Name: Becky ORTIZ JR MR #: [id number] : 1940 Age/Sex: 80/M Req #: [id number] Adm Physician: BARBARA FERNÁNDEZ MD Ordered by: REINALDO FERNÁNDEZ DO Report #: [id number] Location: ICU Room/Bed: ICU [facility] Procedure: [id number] CT/CT CHEST Mariah akhtar Date: 07/06/20 Exam Time: 0 REPORT STATUS: Signed EXAM: CT Chest WITH contrast 11:20 PM INDICATION: Chest pain, hypoxia , respiratory failure COMPARISON: None TECHNIQUE: Chest was scanned utilizing a multidetector helical scanner from the lung apex through the level of the adrenal glands wi th administration of IV contrast. Coronal and sagittal reformations were obtai bonny. Routine protocol was performed. IV CONTRAST: 100 mL of Isovue 370 COMPLICATIONS: None RADIATION DOSE: Total DLP: 563 mGy*cm Estimated effective dose: (DLP x 0.014 x size factor) mSv CTDIvol has been reviewed. It is below the limits set by the Radiation Protocol Committee (RPC). Dose modulation, iterative reconstruction, and/or weight based adj ustment of the mA/kV was utilized to reduce the radiation dose to as low as re asonably achievable. FINDINGS: LINES/ TUBES: ET tube tip 5.2 cm above pennie. LUNGS AND AIRWAYS: Depending consolidations in both lungs and partial dependent atelectasis, with air bronchograms. Groundglass haziness in the nondependent lungs. Airways are normal. PLEURA: Small bilateral pl eural effusions. HEART AND MEDIASTINUM: The thyroid gland is normal. No pearson spicious mediastinal, hilar or axillary lymphadenopathy. The heart is normal in size. There is no pericardial effusion. Calcific location of the aorta and major branches including the coronary arteries. Mitral annular and aortic valv e calcifications. Calcified right hilar lymph nodes. Main pulmonary artery dilation, 4.47 m in diameter. UPPER ABDOMEN: Unremarkable. BONES: H ealed fractures of left ribs 2-8. Degenerative changes. SOFT TISSUES: Gynec omastia.. 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 Small bilateral ple ural effusions. Dilated main pulmonary artery indicative of pulmonary hyperten jessika. Suspect pulmonary edema. Bilateral lung dependent atelectasis/cons olidation, in the presence of esophageal fluid distention, can be due to aspir ation pneumonia. Signed by: Joseph Keen DO on 07/07/2020 2:19 AM Dictated By: JOSEPH KEEN DO 8 Transcribed By: VIKA on 07/07/20218 COPY TO: FERNÁNDEZREINALDO Blood cixukvr5901-07-28 01:40:00* Test Item Value Reference Range Interpretation Comments Blood Culture (test code = 54326439) NO GROWTH AFTER 5 DAYS, FINAL REPORT [facility] fxlausv4915-43-00 01:40:00* Test Item Value Reference Range Interpretation Comments Blood Culture (test code = 15835873) NO GROWTH AFTER 5 DAYS, FINAL REPORT [facility] color udzvkugwzhrwu3103-85-04 22:37:00* Test Item Value Reference Range Interpretation Comments Urine Color (test code = 5778-6) YELLOW YELLOW [facility] pglplfl2848-25-59 22:37:00* Test Item Value Reference Range Interpretation Comments Urine Clarity (test code = 65437-3) CLOUDY CLEAR [facility] of Urine by Test strip 2020-07-06 22:37:00* Test Item Value Reference Range Interpretation Comments Urine Specific [place] (test code = 5811-5) 1.025 1.010-1.02 5 [facility] pH measurement by automated test vrgsc8648-73-42 22:37:00* Test Item Value Reference Range Interpretation Comments Urine pH (test code = 41495-9) 5 5-7 [facility] HospitalU[facility] leukocyte esterase detection by aqtfuyfb6441-18-70 22:37:00* Test Item Value Reference Range Interpretation Comments Urine Leukocyte Esterase (test code = 5799-2) NEGATIVE NEGATIVE [facility] Hospital[facility]rine nitrite bkwewoxfl8422-47-65 22:37:00* Test Item Value Reference Range Interpretation Comments Urine Nitrite (test code = 22293-7) NEGATIVE NEGATIVE [facility] Hospital[facility] protein measurement by test strip (mass/volume)2020-07-06 22:37:00* Test Item Value Reference Range Interpretation Comments Urine Protein (test code = 5804-0) >=300 NEGATIVE [facility] HospitalUrine glucose ymmpacewf9815-24-65 22:37:00* Test Item Value Reference Range Interpretation Comments Urine Glucose (UA) (test code = 2349-9) NEGATIVE NEGATIVE [facility] HospitalUrine ketones detection by automated test gxvnb0057-24-95 22:37:00* Test Item Value Reference Range Interpretation Comments Urine Ketones (test code = 68382-6) NEGATIVE NEGATIVE [facility] Hospital[facility]rine urobilinogen measurement by test strip (mass/volume)2020-07-06 22:37:00* Test Item Value Reference Range Interpretation Comments Urine Urobilinogen (test code = 84097-4) 0.2 0.2-1 [facility] total bilirubin measurement (mass/volume)2020-07-06 22:37:00* Test Item Value Reference Range Interpretation Comments Urine Bilirubin (test code = 1978-6) NEGATIVE NEGATIVE [facility] HospitalUrine erythrocytes prtrrytmb6805-87-91 22:37:00* Test Item Value Reference Range Interpretation Comments Urine Blood (test code = 29244-9) LARGE NEGATIVE [facility] HospitalAutomated urine sediment leukocyte count by microscopy (number/high power field)2020-07-06 22:37:00* Test Item Value Reference Range Interpretation Comments Urine WBC (test code = 5821-4) 6-10 0-5 [facility] HospitalErythrocytes detection in urine sediment by light emibblrqxj7385-85-34 22:37:00* Test Item Value Reference Range Interpretation Comments Urine RBC (test code = 74688-1) >50 0-5 [facility] HospitalBacteria detection in urine sediment by light qirwjkgfkl7014-45-27 22:37:00* Test Item Value Reference Range Interpretation Comments Urine Bacteria (test code = 31110-7) MODERATE NONE [facility] HospitalEpithelial cells detection in urine sediment by light yrdxncsrox8285-24-43 22:37:00* Test Item Value Reference Range Interpretation Comments Urine Epithelial Cells (test code = 21601-8) FEW NONE [facility] HospitalAmorphous sediment detection in urine sediment by light yseipaydsh5163-33-73 22:37:00* Test Item Value Reference Range Interpretation Comments Urine Amorphous Sediment (test code = 8246-1) MANY FEW [facility] HospitalUrine color tppbgnfldiavw3654-16-88 22:37:00* Test Item Value Reference Range Interpretation Comments Urine Color (test code = 5778-6) YELLOW YELLOW [facility] HospitalUrine khjyvep0759-17-71 22:37:00* Test Item Value Reference Range Interpretation Comments Urine Clarity (test code = 93656-8) CLOUDY CLEAR [facility] gravity of Urine by Test strip 2020-07-06 22:37:00* Test Item Value Reference Range Interpretation Comments Urine Specific [place] (test code = 5811-5) 1.025 1.010-1.02 5 [facility] HospitalU[facility] pH measurement by automated test wcvev6653-68-94 22:37:00* Test Item Value Reference Range Interpretation Comments Urine pH (test code = 40550-9) 5 5-7 [facility] HospitalUrine leukocyte esterase detection by ugocyotm5284-20-26 22:37:00* Test Item Value Reference Range Interpretation Comments Urine Leukocyte Esterase (test code = 5799-2) NEGATIVE NEGATIVE [facility] HospitalUrine nitrite iikcvonkl1271-14-28 22:37:00* Test Item Value Reference Range Interpretation Comments Urine Nitrite (test code = 63437-6) NEGATIVE NEGATIVE [facility] HospitalUrine protein measurement by test strip (mass/volume)2020-07-06 22:37:00* Test Item Value Reference Range Interpretation Comments Urine Protein (test code = 5804-0) >=300 NEGATIVE [facility] HospitalUrine glucose rfeeprieq4876-14-15 22:37:00* Test Item Value Reference Range Interpretation Comments Urine Glucose (UA) (test code = 2349-9) NEGATIVE NEGATIVE [facility] HospitalUrine ketones detection by automated test szfot0996-06-02 22:37:00* Test Item Value Reference Range Interpretation Comments Urine Ketones (test code = 81137-9) NEGATIVE NEGATIVE [facility] HospitalUrine urobilinogen measurement by test strip (mass/volume)2020-07-06 22:37:00* Test Item Value Reference Range Interpretation Comments Urine Urobilinogen (test code = 79898-8) 0.2 0.2-1 [facility] HospitalU[facility] total bilirubin measurement (mass/volume)2020-07-06 22:37:00* Test Item Value Reference Range Interpretation Comments Urine Bilirubin (test code = 1978-6) NEGATIVE NEGATIVE [facility] HospitalUrine erythrocytes ipufwfwua4915-43-61 22:37:00* Test Item Value Reference Range Interpretation Comments Urine Blood (test code = 78024-5) LARGE NEGATIVE [facility] HospitalAutomated urine sediment leukocyte count by microscopy (number/high power field)2020-07-06 22:37:00* Test Item Value Reference Range Interpretation Comments Urine WBC (test code = 5821-4) 6-10 0-5 [facility] HospitalErythrocytes detection in urine sediment by light qejjkcjuwj4132-27-96 22:37:00* Test Item Value Reference Range Interpretation Comments Urine RBC (test code = 72872-5) >50 0-5 [facility] HospitalBacteria detection in urine sediment by light syymajcpyp9637-79-69 22:37:00* Test Item Value Reference Range Interpretation Comments Urine Bacteria (test code = 86431-0) MODERATE NONE [facility] HospitalEpithelial cells detection in urine sediment by light pdyiokirbh9487-14-65 22:37:00* Test Item Value Reference Range Interpretation Comments Urine Epithelial Cells (test code = 75101-2) FEW NONE [facility] HospitalAmorphous sediment detection in urine sediment by light tbekuimkjt2139-49-74 22:37:00* Test Item Value Reference Range Interpretation Comments Urine Amorphous Sediment (test code = 8246-1) MANY FEW [facility] HospitalFluoroscopic procedure less than one hour rqjoawvl3249-54-87 21:14:00* Test Item Value Reference Range Interpretation Comments Coronavirus (PCR) (test code = Coronavirus (PCR)) NOT DETECTED NOTD ETECTED SARS-COV2/RT-PCR CEPHEIDResults are for the detection of SARS-COV-2 RNA. The CELI S-COV-2 RNA is generally detectable in nasopharyngeal swab specimens during the acute phase of infection. Positive results are indicitive of active infection wi th SARS-COV-2; clinical correlation with patient history and other diagnostic in formation is necessary to determine patient infection status. Positive results d o not rule out bacterial infection or co-infection with other viruses. The agent detected may not be the definite cause of the disease.The limit of detection for this assay is 250 copies/mLThe SARS-CoV-2 test is a rapid, real-time RT-PCR test intended for the qualitative detection of nucleic acid from SARS-CoV-2 in stefano opharyngeal swab specimen collected from individuals suspected of COVID-19 by [facility] healthcare provider. This test has not been Food and Drug Administration (FD A) cleared or approved and has been authorized by FDA under an Emergency Use Aut horization (EUA). This EUA will be effective until the declaration that circumst ances exist justifying the authorization of the emergency use of in vitro diagno stic test for detection and or diagnosis of COVID-19 is terminated under section 564(b) of the Act, or the the EUA is revoked under 564(g) of the ACT.[facility] HospitalFluoroscopic procedure less than one hour phoykrlt8704-96-76 21:14:00* Test Item Value Reference Range Interpretation Comments Coronavirus (PCR) (test code = Coronavirus (PCR)) NOT DETECTED NOTD ETECTED SARS-COV2/RT-PCR CEPHEIDResults are for the detection of SARS-COV-2 RNA. The CELI S-COV-2 RNA is generally detectable in nasopharyngeal swab specimens during the acute phase of infection. Positive results are indicitive of active infection wi th SARS-COV-2; clinical correlation with patient history and other diagnostic in formation is necessary to determine patient infection status. Positive results d o not rule out bacterial infection or co-infection with other viruses. The agent detected may not be the definite cause of the disease.The limit of detection for this assay is 250 copies/mLThe SARS-CoV-2 test is a rapid, real-time RT-PCR test intended for the qualitative detection of nucleic acid from SARS-CoV-2 in stefano opharyngeal swab specimen collected from individuals suspected of COVID-19 by [facility] healthcare provider. This test has not been Food and Drug Administration (FD A) cleared or approved and has been authorized by FDA under an Emergency Use Aut horization (EUA). This EUA will be effective until the declaration that circumst ances exist justifying the authorization of the emergency use of in vitro diagno stic test for detection and or diagnosis of COVID-19 is terminated under section 564(b) of the Act, or the the EUA is revoked under 564(g) of the ACT.[facility] SINGLE (PORTABLE)2020-07-06 19:55:00 [facility] [address] [address] Patient Name: Becky ORTIZ JR MR #: [id number] : 1940 Age/Sex: 80/M Req #: [id number] Adm Physician: BARBARA FERNÁNDEZ MD Ordered by: REINALDO FERNÁNDEZ DO Report #: [id number] Location: [facility] Room/Bed: [place] [address] Procedure: [id number] DX/CHEST SINGLE (P ORTABLE) Exam Date: 07/06/20 Exam Time: 1904 REPORT STATUS: Signed EXAMINATION: [facility] SINGLE (PORTABLE) COMPARISON: Chest x-ray 1816 hours INDICATION : s/p intubation [id number] DISCUSSION: Frontal view of th e chest obtained at 1858 hours. HEART AND MEDIASTINUM: Stable cardiomegaly and prominence of the pulmonary roderick LINES: Endotracheal tube termina nanci approximately 5 cm above the pennie. LUNGS/PLEURA: Diffuse interstitia l edema and groundglass airspace opacities are redemonstrated. No large effusi ons or pneumothorax. BONES AND SOFT TISSUES: Stable. IMPRESSION: ET tube terminates approximately 5 cm above the pennie. Cardiomegaly, CHF, and pulmonary edema. Signed by: Dr. Jin Brown MD on 07/06/2020 7:56 PM Dictated By: JIN BROWN MD 55 Transcribed By: VIKA on 07/06/201955 COPY TO: REINALDO FERÁNNDEZ DO CHEST SINGLE (PORTABLE)2020-07-06 19:55:00 [place] [address] Patient Name: Becky ORTIZ JR MR #: [id number] : 1940 Age/Sex: 80/M Req #: [id number] Adm Physician: BARBARA FERNÁNDEZ MD Ordered by: REINALDO FERNÁNDEZ DO Report #: [id number] Location: ICU Room/Bed: ICU [facility] Procedure: [id number] DX/CHEST SINGLE (P ORTABLE) Exam Date: 07/06/20 Exam Time: 1904 REPORT STATUS: Signed EXAMINATION: [facility] SINGLE (PORTABLE) COMPARISON: Chest x-ray 1817 hours INDICATION : s/p intubation [id number] DISCUSSION: Frontal view of th e chest obtained at 1858 hours. HEART AND MEDIASTINUM: Stable cardiomegaly and prominence of the pulmonary roderick LINES: Endotracheal tube termina nanci approximately 5 cm above the pennie. LUNGS/PLEURA: Diffuse interstitia l edema and groundglass airspace opacities are redemonstrated. No large effusi ons or pneumothorax. BONES AND SOFT TISSUES: Stable. IMPRESSION: ET tube terminates approximately 5 cm above the pennie. Cardiomegaly, CHF, and pulmonary edema. Signed by: Dr. Jin Brown MD on 07/06/2020 7:56 PM Dictated By: JIN BROWN MD 55 Transcribed By: VIKA on 07/06/201955 COPY TO: REINALDO FERNÁNDEZ DO CHEST SINGLE (PORTABLE)2020-07-06 18:46:00 [place] [address] Patient Name: BARBARA ALMARAZ MR #: [id number] : 1940 Age/Sex: 80/M Req #: [id number] Adm Physician: Ordered by: REINALDO FERNÁNDEZ DO Report #: [id number] Location: ER Room/Bed: Procedure: [id number] DX/CHEST SINGLE ( PORTABLE) Exam Date: 07/06/20 Exam Time: 1814 REPORT STATUS: Signed EXAMINATION: [facility] SINGLE (PORTABLE) COMPARISON: None INDICATION: Chest pain, crispin rtness of breath ERMD ORDER [id number] 1815 Y DISCUSSION: F rontal view of the chest obtained at 7 hours. HEART AND MEDIASTINUM: Th e heart is enlarged. The pulmonary arteries are prominent. The aorta is tortuo us with calcifications of the arch LINES: None. LUNGS/PLEURA: Diff use interstitial thickening and vascular congestion. Patchy bibasilar airspac e opacities, left lung more severe than the right. BONES AND SOFT TISSUES: No focal osseous lesion. The soft tissues are normal. IMPRESSION: C ardiomegaly, pulmonary vascular congestion and interstitial edema. Bibasilar a irspace opacities may represent atelectasis or edema. Prominent pulmonary a rteries suggestive of pulmonary artery hypertension. Signed by: Dr. Chloe Brown MD on 07/06/2020 6:47 PM Dictated By: JIN BROWN MD El ectronically Signed By: JIN BROWN MD on 07/06/201846 Transcribed By: Kate HOGUE on 07/06/201846 COPY TO: REINALDO FERNÁNDEZ DO CHEST SINGLE (PORTABLE)2020-07-06 18:46:00 [facility] [address] [address] Patient Name: Becky ORTIZ JR MR #: [id number] : 1940 Age/Sex: 80/M Req #: [id number] Adm Physician: BARBARA FERNÁNDEZ MD Ordered by: REINALDO FERNÁNDEZ DO Report #: [id number] Location: ICU Room/Bed: ICU [facility] Procedure: [id number] DX/CHEST SINGLE (P ORTABLE) Exam Date: 07/06/20 Exam Time: 1814 REPORT STATUS: Signed EXAMINATION: [facility] SINGLE (PORTABLE) COMPARISON: None INDICATION: Chest pain, shor tness of breath ERMD ORDER [id number] 1814 Y DISCUSSION: Fr ontal view of the chest obtained at 1817 hours. HEART AND MEDIASTINUM: The heart is enlarged. The pulmonary arteries are prominent. The aorta is tortuous with calcifications of the arch LINES: None. LUNGS/PLEURA: Diffuse interstitial thickening and vascular congestion. Patchy bibasilar airspace opacities, left lung more severe than the right. BONES AND SOFT TISSUES: No focal osseous lesion. The soft tissues are normal. IMPRESSION: Ca rdiomegaly, pulmonary vascular congestion and interstitial edema. Bibasilar ai rspace opacities may represent atelectasis or edema. Prominent pulmonary ar teries suggestive of pulmonary artery hypertension. Signed by: Dr. Jin Brown MD on 07/06/2020 6:47 PM Dictated By: JIN BROWN MD Phoebe ctronically Signed By: JIN BROWN MD on 07/06/201846 Transcribed By: BLUE MADDOX on 07/06/201846 COPY TO: REINALDO FERNÁNDEZ DO Serum or plasma lipase measurement (enzymatic activity/volume)2020-07-06 18:12:00* Test Item Value Reference Range Interpretation Comments Lipase (test code = 3040-3) [facility] lipase measurement (enzymatic activity/volume)2020-07-06 18:12:00* Test Item Value Reference Range Interpretation Comments Lipase (test code = 3040-3) [facility] GZDWC4145-30-90 16:10:00 [facility] [address] [address] Patient Name: Becky ORTIZ JR MR #: [id number] : 1940 Age/Sex: 79/M Req #: [id number] Adm Physician: Ordered by: SHARIF ANGULO MD Report #: [id number] Location: OR Room/Bed: Procedure: [id number] DX/CHEST 2 VIEWS Exam Date: 05/03/20 Exam Time: 1549 REPORT STATUS: Signed EXAMINATION: CHEST 2 VIEWS INDICATION: Pre-operative COMPARISON: Chest radiograph 11/14/2019 FINDINGS: LINES/TUBES:None LUNGS:The lungs are well-inflated. No focal consolidation or pulmonary edema. PLEURA:No pleural effusion or pneumothorax. MEDIASTINUM:The cardiomediastinal silhouette appears normal in size and shape. Atherosclerotic calcifications of the thoracic aorta. BONES/SOFT TISSUES:No acute osseous injury. ABDOMEN:No free air under the d iaphragm. IMPRESSION: No focal pneumonia or pulmonary edema. Sig bonny by: Brittany Patel MD on 05/03/2020 4:11 PM Dictated By: BRITTANY PATEL MD E lectronically Signed By: BRITTANY PATEL MD on 05/03/20 1611 Transcribed By: VIKA on 05/03/20 1611 COPY TO: SHARIF ANGULO MD Bedside Glucose 2019-11-18 11:30:00* Test Item Value Reference Range Interpretation Comments Bedside Glucose (test code = 22413-9) 134 70-120 H Meter ID: [id number] Children's Hospital Houstonodium Level 2019-11-18 08:59:00* Test Item Value Reference Range Interpretation Comments Sodium Level (test code = 2951-2) 141 136-145 [facility]Pot[facility] Bxmfq8009-33-43 08:59:00* Test Item Value Reference Range Interpretation Comments Potassium Level (test code = 2823-3) 3.2 3.5-5.1 L [facility] HospitalChloride Eohjt6363-48-87 08:59:00* Test Item Value Reference Range Interpretation Comments Chloride Level (test code = 2075-0) 111 98-107 H [facility] HospitalCarbon Dioxide Sdeeu8585-43-37 08:59:00* Test Item Value Reference Range Interpretation Comments Carbon Dioxide Level (test code = 2028-9) 23 22-29 [facility] HospitalAnion Tte4367-07-77 08:59:00* Test Item Value Reference Range Interpretation Comments Anion Gap (test code = 23207-8) 10.2 8-16 [facility] HospitalBlood Urea Slqgbqdj6433-90-45 08:59:00* Test Item Value Reference Range Interpretation Comments Blood Urea Nitrogen (test code = 3094-0) 11 7-26 [facility] HospitalCreatinine2020-01-03 08:59:00* Test Item Value Reference Range Interpretation Comments Creatinine (test code = 2160-0) 0.69 0.72-1.25 L [facility] HospitalBUN/Creatinine Gqmgz0448-36-81 08:59:00* Test Item Value Reference Range Interpretation Comments BUN/Creatinine Ratio (test code = 3097-3) 16 6-25 [facility] HospitalEstimat Glomerular Filtration Rate 2019-11-18 08:59:00* Test Item Value Reference Range Interpretation Comments Estimat Glomerular Filtration Rate (test code = 758080156) > 60 >60 Ranges were taken from the National Kidney Disease Education Program and the [facility] Foundation literature.Reference ranges:60 or greater: Nuizic54-93 ( for 3 consecutive months): Chronic kidney disease 15 or less: Kidney failureNacogdoches Memorial HospitalGlucose Gdgur8912-48-64 08:59:00* Test Item Value Reference Range Interpretation Comments Glucose Level (test code = PBR8909) 96 74-118 [facility] HospitalCalcium Cyirn1393-50-58 08:59:00* Test Item Value Reference Range Interpretation Comments Calcium Level (test code = 69740-0) 8.0 8.4-10.2 L [facility] HospitalWhite Blood Zdyji0577-44-75 08:58:00* Test Item Value Reference Range Interpretation Comments White Blood Count (test code = 6690-2) 9.94 4.8-10.8 [facility] HospitalRed Blood Iikkk1088-11-98 08:58:00* Test Item Value Reference Range Interpretation Comments Red Blood Count (test code = 789-8) 3.16 4.3-5.7 L [facility] HospitalHemoglobin2020-01-03 08:58:00* Test Item Value Reference Range Interpretation Comments Hemoglobin (test code = 44332-5) 9.0 14.0-18.0 L [facility] HospitalHematocrit2020-01-03 08:58:00* Test Item Value Reference Range Interpretation Comments Hematocrit (test code = 4544-3) 29.0 38.2-49.6 L [facility] HospitalMean Corpuscular Ciczfx1035-11-62 08:58:00* Test Item Value Reference Range Interpretation Comments Mean Corpuscular Volume (test code = 787-2) 91.8 81-99 [facility] HospitalMean Corpuscular Jtohefllyk7372-68-19 08:58:00* Test Item Value Reference Range Interpretation Comments Mean Corpuscular Hemoglobin (test code = 785-6) 28.5 28-32 [facility] HospitalMean Corpuscular Hemoglobin Concent 2019-11-18 08:58:00* Test Item Value Reference Range Interpretation Comments Mean Corpuscular Hemoglobin Concent (test code = 786-4) 31.0 31-35 [facility] HospitalRed Cell Distribution Repkk0439-34-28 08:58:00* Test Item Value Reference Range Interpretation Comments Red Cell Distribution Width (test code = 29219-3) 14.1 11.7 -14.4 [facility] HospitalPlatelet Gdlpf6271-84-62 08:58:00* Test Item Value Reference Range Interpretation Comments Platelet Count (test code = 777-3) 243 140-360 [facility] HospitalNeutrophils (%) (Auto)2019-11-18 08:58:00 * Test Item Value Reference Range Interpretation Comments Neutrophils (%) (Auto) (test code = 45401-9) 56.2 38.7-80.0 [facility] HospitalLymphocytes (%) (Auto)2019-11-18 08:58:00 * Test Item Value Reference Range Interpretation Comments Lymphocytes (%) (Auto) (test code = 736-9) 21.3 18.0-39.1 [facility] HospitalMonocytes (%) (Auto)2019-11-18 08:58:00* Test Item Value Reference Range Interpretation Comments Monocytes (%) (Auto) (test code = 5905-5) 12.0 4.4-11.3 H [facility] HospitalEosinophils (%) (Auto)2019-11-18 08:58:00 * Test Item Value Reference Range Interpretation Comments Eosinophils (%) (Auto) (test code = 713-8) 9.1 0.0-6.0 H [facility] HospitalBasophils (%) (Auto)2019-11-18 08:58:00* Test Item Value Reference Range Interpretation Comments Basophils (%) (Auto) (test code = 706-2) 0.7 0.0-1.0 [facility] HospitalIM GRANULOCYTES %2019-11-18 08:58:00* Test Item Value Reference Range Interpretation Comments IM GRANULOCYTES % (test code = IM GRANULOCYTES %) 0.7 0.0- 1.0 [facility] HospitalNeutrophils # (Auto)2019-11-18 08:58:00* Test Item Value Reference Range Interpretation Comments Neutrophils # (Auto) (test code = 751-8) 5.6 2.1-6.9 [facility] HospitalLymphocytes # (Auto)2019-11-18 08:58:00* Test Item Value Reference Range Interpretation Comments Lymphocytes # (Auto) (test code = 46509-8) 2.1 1.0-3.2 [facility] HospitalMonocytes # (Auto)2019-11-18 08:58:00* Test Item Value Reference Range Interpretation Comments Monocytes # (Auto) (test code = 742-7) 1.2 0.2-0.8 H [facility] HospitalEosinophils # (Auto)2019-11-18 08:58:00* Test Item Value Reference Range Interpretation Comments Eosinophils # (Auto) (test code = 711-2) 0.9 0.0-0.4 H [facility] HospitalBasophils # (Auto)2019-11-18 08:58:00* Test Item Value Reference Range Interpretation Comments Basophils # (Auto) (test code = 704-7) 0.1 0.0-0.1 [facility] HospitalAbsolute Immature Granulocyte (auto 2019-11-18 08:58:00* Test Item Value Reference Range Interpretation Comments Absolute Immature Granulocyte (auto (nanci t code = Absolute Immature Granulocyte (auto) 0.07 0-0.1 [facility] HospitalBlood Sbvxfrb3553-71-09 16:50:00* Test Item Value Reference Range Interpretation Comments Blood Culture (test code = 29907613) NO GROWTH AFTER 72 HOURS [facility] HospitalWound Zsxswkl6654-82-81 10:19:00* Test Item Value Reference Range Interpretation Comments Wound Culture (test code = 6462-6) No Result Data Provided [facility] HospitalHemoglobin A1c Axvrnib6485-63-66 06:24:00 * Test Item Value Reference Range Interpretation Comments Hemoglobin A1c Percent (test code = Hemoglobin A1c Percent) 4.9 4.0-7.0 [facility] HospitalPhosphorus Tihnn9849-14-95 06:18:00* Test Item Value Reference Range Interpretation Comments Phosphorus Level (test code = UZB1288) 3.1 2.3-4.7 [facility] HospitalMagnesium Jruzc6649-05-87 06:18:00* Test Item Value Reference Range Interpretation Comments Magnesium Level (test code = 64934-3) 1.7 1.3-2.1 [facility] HospitalBacteria identification in wound by egmjjnq3862-91-63 08:30:00* Test Item Value Reference Range Interpretation Comments Wound Culture (test code = 6462-6) MORGANELLA MORGANII [facility] HospitalBacteria identification in wound by wolxpah7078-60-94 08:30:00* Test Item Value Reference Range Interpretation Comments Wound Culture (test code = 6462-6) MORGANELLA MORGANII [facility] HospitalTost. [facility] Xgipdkzat4446-40-27 06:28:00* Test Item Value Reference Range Interpretation Comments Total Bilirubin (test code = 1975-2) 0.3 0.2-1.2 [facility] HospitalAspartate Amino Transf (AST/SGOT) 2019-11-15 06:28:00* Test Item Value Reference Range Interpretation Comments Aspartate Amino Transf (AST/SGOT) (test code = Aspartate Amino Transf (AST/SGOT)) 15 5-34 [facility] HospitalAlanine Aminotransferase (ALT/SGPT) 2019-11-15 06:28:00* Test Item Value Reference Range Interpretation Comments Alanine Aminotransferase (ALT/SGPT) (test code = 1742-6) 8 0-55 [facility] HospitalTotal Gqpvzyh1359-45-47 06:28:00* Test Item Value Reference Range Interpretation Comments Total Protein (test code = 2885-2) 5.5 6.5-8.1 L [facility] HospitalAlbumin2019-12-31 06:28:00* Test Item Value Reference Range Interpretation Comments Albumin (test code = 1751-7) 1.6 3.5-5.0 L [facility] HospitalGlobulin2019-12-31 06:28:00* Test Item Value Reference Range Interpretation Comments Globulin (test code = 88818-0) 3.9 2.3-3.5 H [facility] HospitalAlbumin/Globulin Boqia2623-14-27 06:28:00 * Test Item Value Reference Range Interpretation Comments Albumin/Globulin Ratio (test code = 1759-0) 0.4 0.8-2.0 L [facility] HospitalAlkaline Yyustjytjhg6686-84-27 06:28:00* Test Item Value Reference Range Interpretation Comments Alkaline Phosphatase (test code = 6768-6) 89 40-150 [facility] HospitalCHEST SINGLE (PORTABLE)2019-11-14 17:25:00 [facility] [address] [address] Patient Name: Becky ORTIZ JR MR #: [id number] : 1940 Age/Sex: 79/M Req #: [id number] Adm Physician: BARBARA FERNÁNDEZ MD Ordered by: LUIGI DRUMMOND MD Report #: [id number] Location: [facility] Room/Bed: [place] [address] Procedure: [id number] DX/[facility] SINGLE (PORTABLE) Exam Date: 11/14/19 Exam Time: 165 REPORT STATUS: Signed EXAMI NATION: CHEST SINGLE (PORTABLE) INDICATION: Cellulitis COMPARISON : Chest radiograph 08/18/2019 FINDINGS: LINES/TUBES:None LUNG S:The lungs are well-inflated. Unchanged central pulmonary vascular congestion . No focal consolidation or benjy pulmonary edema. PLEURA:No pleural effusi on or pneumothorax. MEDIASTINUM:The cardiomediastinal silhouette appears no rmal in size and shape. Atherosclerotic calcifications of the thoracic aorta. BONES/SOFT TISSUES:No acute osseous injury. ABDOMEN:No free air under the diaphragm. IMPRESSION: Central pulmonary vascular congestion with no benjy pulmonary edema or focal pneumonia. Signed by: Brittany Patel MD on 11/14/2019 5:26 PM Dictated By: BRITTANY PATEL MD 25 Transcribed By: VIKA on 11/14/191725 COPY TO: LUIGI DRUMMOND MD Bedside Qarynxr5521-36-43 15:59:00* Test Item Value Reference Range Interpretation Comments Bedside Glucose (test code = 24031-1) 120 70-120 Meter ID: [id number] Children's Hospital Houstonodium Level 2019-09-06 07:46:00* Test Item Value Reference Range Interpretation Comments Sodium Level (test code = 2951-2) 141 136-145 [facility] HospitalPotassium Iyduk8687-52-05 07:46:00* Test Item Value Reference Range Interpretation Comments Potassium Level (test code = 2823-3) 2.5 3.5-5.1 LL Results repeated and called to TANNER CASANOVA at 0745 on 09/06/19 by Darlin steinberg. Read back and verified.[facility] HospitalChloride Level 2019-09-06 07:46:00* Test Item Value Reference Range Interpretation Comments Chloride Level (test code = 2075-0) 107 98-107 [facility] HospitalCarbon Dioxide Lmkim1979-29-00 07:46:00* Test Item Value Reference Range Interpretation Comments Carbon Dioxide Level (test code = 2028-9) 24 22-29 [facility] HospitalAnion Iul5160-81-60 07:46:00* Test Item Value Reference Range Interpretation Comments Anion Gap (test code = 52060-6) 12.5 8-16 [facility] HospitalBlood Urea Xuzitgex1897-87-21 07:46:00* Test Item Value Reference Range Interpretation Comments Blood Urea Nitrogen (test code = 3094-0) 7 7-26 [facility] HospitalCreatinine2019-10-22 07:46:00* Test Item Value Reference Range Interpretation Comments Creatinine (test code = 2160-0) 1.83 0.72-1.25 H [facility] HospitalBUN/Creatinine Gslhx5402-36-21 07:46:00* Test Item Value Reference Range Interpretation Comments BUN/Creatinine Ratio (test code = 3097-3) 4 6-25 L [facility] HospitalEstimat Glomerular Filtration Rate 2019-09-06 07:46:00* Test Item Value Reference Range Interpretation Comments Estimat Glomerular Filtration Rate (test code = 787919931) 43 >60 L Ranges were taken from the National Kidney Disease Education Program and the [facility] literature.Reference ranges:60 or greater: Dxnvdc34-93 ( for 3 consecutive months): Chronic kidney disease 15 or less: Kidney failureNacogdoches Memorial HospitalGlucose Oeyta7995-93-71 07:46:00* Test Item Value Reference Range Interpretation Comments Glucose Level (test code = BGV6920) 89 74-118 [facility] HospitalCalcium Keuja5107-20-86 07:46:00* Test Item Value Reference Range Interpretation Comments Calcium Level (test code = 01849-7) 8.4 8.4-10.2 [facility] HospitalPhosphorus Ywprs0728-68-61 07:46:00* Test Item Value Reference Range Interpretation Comments Phosphorus Level (test code = NBF6897) 3.0 2.3-4.7 [facility] HospitalMagnesium Klfbv9696-69-92 07:46:00* Test Item Value Reference Range Interpretation Comments Magnesium Level (test code = 15093-0) 1.3 1.3-2.1 [facility] HospitalFerritin2019-10-21 08:36:00* Test Item Value Reference Range Interpretation Comments Ferritin (test code = 2276-4) 587.26 21.81-274.66 H [facility] HospitalFerritin2019-10-21 08:36:00* Test Item Value Reference Range Interpretation Comments Ferritin (test code = 2276-4) 587.26 21.81-274.66 H [facility] HospitalIron Qficv8412-45-77 08:07:00* Test Item Value Reference Range Interpretation Comments Iron Level (test code = 2498-4) 24 65-175 L [facility] HospitalTotal Iron Binding Mvmfthlu1126-25-19 08:07:00* Test Item Value Reference Range Interpretation Comments Total Iron Binding Capacity (test code = 2500-7) 99 261-4 78 L [facility] HospitalPercent Iron Qvhmmauuop6812-34-78 08:07:00* Test Item Value Reference Range Interpretation Comments Percent Iron Saturation (test code = 2502-3) 24 15-50 [facility] HospitalTransferrin2019-10-21 08:07:00* Test Item Value Reference Range Interpretation Comments Transferrin (test code = 3034-6) 71 174-364 L [facility] HospitalIron Exabz5564-99-76 08:07:00* Test Item Value Reference Range Interpretation Comments Iron Level (test code = 2498-4) 24 65-175 L [facility] HospitalTost. [facility] Iron Binding Dhspryan3456-56-94 08:07:00* Test Item Value Reference Range Interpretation Comments Total Iron Binding Capacity (test code = 2500-7) 99 261-4 78 L [facility] HospitalPercent Iron Mkvbhwfxfl4893-15-84 08:07:00* Test Item Value Reference Range Interpretation Comments Percent Iron Saturation (test code = 2502-3) 24 15-50 [facility] HospitalTransferrin2019-10-21 08:07:00* Test Item Value Reference Range Interpretation Comments Transferrin (test code = 3034-6) 71 174-364 L [facility] HospitalTotal Unoidujzz0771-44-47 07:36:00* Test Item Value Reference Range Interpretation Comments Total Bilirubin (test code = 1975-2) 0.2 0.2-1.2 [facility] HospitalAspartate Amino Transf (AST/SGOT) 2019-09-05 07:36:00* Test Item Value Reference Range Interpretation Comments Aspartate Amino Transf (AST/SGOT) (test code = Aspartate Amino Transf (AST/SGOT)) 20 5-34 [facility] HospitalAlanine Aminotransferase (ALT/SGPT) 2019-09-05 07:36:00* Test Item Value Reference Range Interpretation Comments Alanine Aminotransferase (ALT/SGPT) (test code = 1742-6) < 6 0-55 [facility] HospitalTotal Booxusd4679-29-83 07:36:00* Test Item Value Reference Range Interpretation Comments Total Protein (test code = 2885-2) 5.9 6.5-8.1 L [facility] HospitalAlbumin2019-10-21 07:36:00* Test Item Value Reference Range Interpretation Comments Albumin (test code = 1751-7) 1.3 3.5-5.0 L [facility] HospitalGlobulin2019-10-21 07:36:00* Test Item Value Reference Range Interpretation Comments Globulin (test code = 44774-3) 4.6 2.3-3.5 H [facility] HospitalAlbumin/Globulin Rfuko4931-22-64 07:36:00 * Test Item Value Reference Range Interpretation Comments Albumin/Globulin Ratio (test code = 1759-0) 0.3 0.8-2.0 L [facility] HospitalAlkaline Kfafhgbgahc2667-36-98 07:36:00* Test Item Value Reference Range Interpretation Comments Alkaline Phosphatase (test code = 6768-6) 59 40-150 [facility] HospitalWhite Blood Mkpft0990-63-75 06:48:00* Test Item Value Reference Range Interpretation Comments White Blood Count (test code = 6690-2) 9.38 4.8-10.8 [facility] HospitalRed Blood Ccksf5158-62-01 06:48:00* Test Item Value Reference Range Interpretation Comments Red Blood Count (test code = 789-8) 2.73 4.3-5.7 L [facility] HospitalHemoglobin2019-10-21 06:48:00* Test Item Value Reference Range Interpretation Comments Hemoglobin (test code = 81591-9) 8.3 14.0-18.0 L [facility] HospitalHematocrit2019-10-21 06:48:00* Test Item Value Reference Range Interpretation Comments Hematocrit (test code = 4544-3) 25.4 38.2-49.6 L [facility] HospitalMean Corpuscular Ecztfo1022-99-50 06:48:00* Test Item Value Reference Range Interpretation Comments Mean Corpuscular Volume (test code = 787-2) 93.0 81-99 [facility] HospitalMean Corpuscular Jlyrazqhgb2463-21-23 06:48:00* Test Item Value Reference Range Interpretation Comments Mean Corpuscular Hemoglobin (test code = 785-6) 30.4 28-32 [facility] HospitalMean Corpuscular Hemoglobin Concent 2019-09-05 06:48:00* Test Item Value Reference Range Interpretation Comments Mean Corpuscular Hemoglobin Concent (test code = 786-4) 32.7 31-35 [facility] HospitalRed Cell Distribution Cjhws8639-69-18 06:48:00* Test Item Value Reference Range Interpretation Comments Red Cell Distribution Width (test code = 11143-0) 15.5 11.7 -14.4 H [facility] HospitalPlatelet Aspkc6565-36-32 06:48:00* Test Item Value Reference Range Interpretation Comments Platelet Count (test code = 777-3) 218 140-360 [facility] HospitalNeutrophils (%) (Auto)2019-09-05 06:48:00 * Test Item Value Reference Range Interpretation Comments Neutrophils (%) (Auto) (test code = 19220-0) 53.2 38.7-80.0 [facility] HospitalLymphocytes (%) (Auto)2019-09-05 06:48:00 * Test Item Value Reference Range Interpretation Comments Lymphocytes (%) (Auto) (test code = 736-9) 17.5 18.0-39.1 L [facility] HospitalMonocytes (%) (Auto)2019-09-05 06:48:00* Test Item Value Reference Range Interpretation Comments Monocytes (%) (Auto) (test code = 5905-5) 14.8 4.4-11.3 H [facility] HospitalEosinophils (%) (Auto)2019-09-05 06:48:00 * Test Item Value Reference Range Interpretation Comments Eosinophils (%) (Auto) (test code = 713-8) 12.7 0.0-6.0 H [facility] HospitalBasophils (%) (Auto)2019-09-05 06:48:00* Test Item Value Reference Range Interpretation Comments Basophils (%) (Auto) (test code = 706-2) 0.9 0.0-1.0 [facility] HospitalIM GRANULOCYTES %2019-09-05 06:48:00* Test Item Value Reference Range Interpretation Comments IM GRANULOCYTES % (test code = IM GRANULOCYTES %) 0.9 0.0- 1.0 [facility] HospitalNeutrophils # (Auto)2019-09-05 06:48:00* Test Item Value Reference Range Interpretation Comments Neutrophils # (Auto) (test code = 751-8) 5.0 2.1-6.9 [facility] HospitalLymphocytes # (Auto)2019-09-05 06:48:00* Test Item Value Reference Range Interpretation Comments Lymphocytes # (Auto) (test code = 29764-7) 1.6 1.0-3.2 [facility] HospitalMonocytes # (Auto)2019-09-05 06:48:00* Test Item Value Reference Range Interpretation Comments Monocytes # (Auto) (test code = 742-7) 1.4 0.2-0.8 H [facility] HospitalEosinophils # (Auto)2019-09-05 06:48:00* Test Item Value Reference Range Interpretation Comments Eosinophils # (Auto) (test code = 711-2) 1.2 0.0-0.4 H [facility] HospitalBasophils # (Auto)2019-09-05 06:48:00* Test Item Value Reference Range Interpretation Comments Basophils # (Auto) (test code = 704-7) 0.1 0.0-0.1 [facility] HospitalAbsolute Immature Granulocyte (auto 2019-09-05 06:48:00* Test Item Value Reference Range Interpretation Comments Absolute Immature Granulocyte (auto (nanci t code = Absolute Immature Granulocyte (auto) 0.08 0-0.1 [facility] Gwrwyce8242-76-94 08:04:00* Test Item Value Reference Range Interpretation Comments Sputum Culture (test code = 624-7) No Result Data Provided [facility] Houstonputum Nkunfeo4637-48-98 08:04:00* Test Item Value Reference Range Interpretation Comments Sputum Culture (test code = 624-7) No Result Data Provided [facility] HospitalAmylase Mekqc6633-88-17 14:51:00* Test Item Value Reference Range Interpretation Comments Amylase Level (test code = 1798-8) 49 25-125 [facility] HospitalLipase2019-10-17 14:51:00* Test Item Value Reference Range Interpretation Comments Lipase (test code = 3040-3) 20 78 [facility] HospitalAmylase Cdkam0697-27-06 14:51:00* Test Item Value Reference Range Interpretation Comments Amylase Level (test code = 1798-8) 49 25-125 [facility] HospitalLipase2019-10-17 14:51:00* Test Item Value Reference Range Interpretation Comments Lipase (test code = 3040-3) [facility] HospitalABDOMEN-1VIEW (KULouis)2019-09-01 14:47:00 [facility] [address] [address] Patient Name: Becky ORTIZ JR MR #: [id number] : 1940 Age/Sex: 79/M Req #: [id number] Adm Physician: BARBARA FERNÁNDEZ MD Ordered by: SHARIF DIEGO MD Report #: [id number] Location: ICU Room/Bed: [place] [address] Procedure: [id number] DX/ABDOM EN-1VIEW (KUB) Exam Date: 09/01/19 Exam Time: 1420 REPORT STATUS: Signed Exam: KUB - 2 views Indication: Vomiting Comparison: KUB of 08/30/2019 Findi ngs: NG tube not visualized in the provided field of view. Again seen are air -filled distended loops of colon measuring up to 8 cm. No free air. Residual intraluminal contrast material in the right lower quadrant. Impression: Unchanged air-filled distended colon. No free air. Signed by: Cinthya Sousa on 09/01/2019 2:48 PM Dictated By: BRITTANY PATEL MD 1448 Transcribed By: VIKA on 09/01/19 1448 COPY TO: SHARIF DIEGO MD Urine Ubejaly5307-60-15 05:20:00* Test Item Value Reference Range Interpretation Comments Urine Protein (test code = 2888-6) 154.1 Not Estab. [facility] HospitalUrine Vsyckhz9116-70-65 05:20:00* Test Item Value Reference Range Interpretation Comments Urine Albumin (test code = 53342-2) 21.2 . [facility] HospitalUrine Batxb-5-Dcdmufmk5028-10-16 05:20:00 * Test Item Value Reference Range Interpretation Comments Urine Jvkkw-7-Hgaflugl (test code = 84081-8) 2.5 . [facility] HospitalUrine Lgnfy-4-Idjgawjtv6505-10-16 05:20:00* Test Item Value Reference Range Interpretation Comments Urine Nehpz-5-Fpccpsrvi (test code = 41675-2) 10.4 . [facility] HospitalUrine Beta Vfprklxp2595-65-30 05:20:00* Test Item Value Reference Range Interpretation Comments Urine Beta Globulin (test code = 34924-1) 17.7 . [facility] HospitalUrine Gamma Ycxdgkia7551-19-48 05:20:00* Test Item Value Reference Range Interpretation Comments Urine Gamma Globulin (test code = 42962-6) 48.2 . [facility] HospitalUrine Random PEP M-Nima %2019-08-31 05:20:00* Test Item Value Reference Range Interpretation Comments Urine Random PEP M-Nima % (test code = 53294-6) Not Observed Not O bserved [facility] HospitalProtein Electrophoresis Varh9917-59-64 05:20:00* Test Item Value Reference Range Interpretation Comments Protein Electrophoresis Note (test code = Protein Electropho resis Note) Comment . Protein electrophoresis scan will follow via computer,mail, or rubber tile floor layer delivery. Performed at: HD - [facility] [address] [place], [place] [id number] Director: Alan Charles MD, Phone: [phone] at: DA - [facility] [address], [place], [place] [address]Qxo Director: ЕЛЕНА Larios MD, Phone: [phone] Memorial HospitalUrine Ywhlnzk6212-83-41 05:20:00* Test Item Value Reference Range Interpretation Comments Urine Protein (test code = 2888-6) 154.1 Not Estab. [facility] HospitalUrine Fboforp2825-94-95 05:20:00* Test Item Value Reference Range Interpretation Comments Urine Albumin (test code = 68433-3) 21.2 . [facility] HospitalUrine Xjurw-7-Qbwrqcpy1341-10-16 05:20:00 * Test Item Value Reference Range Interpretation Comments Urine Rvgge-6-Mcvqrkds (test code = 53739-1) 2.5 . [facility] HospitalUrine Xpelk-6-Mfwgoticc1093-10-16 05:20:00* Test Item Value Reference Range Interpretation Comments Urine Mbqjk-8-Oihxlbeyn (test code = 15160-1) 10.4 . [facility] HospitalUrine Beta Dyhidylc5537-07-43 05:20:00* Test Item Value Reference Range Interpretation Comments Urine Beta Globulin (test code = 76198-3) 17.7 . [facility] HospitalUrine Gamma Bjmqggjm0572-68-32 05:20:00* Test Item Value Reference Range Interpretation Comments Urine Gamma Globulin (test code = 37136-8) 48.2 . [facility] HospitalUrine Random PEP M-Nima %2019-08-31 05:20:00* Test Item Value Reference Range Interpretation Comments Urine Random PEP M-Nima % (test code = 76497-5) Not Observed Not O bserved [facility] HospitalProtein Electrophoresis Evfd0794-85-68 05:20:00* Test Item Value Reference Range Interpretation Comments Protein Electrophoresis Note (test code = Protein Electropho resis Note) Comment . Protein electrophoresis scan will follow via computer,mail, or rubber tile floor layer delivery. Performed at: - [facility] [id number] Director: Alan Charles MD, Phone: [phone] at: - [facility], [place], [place] [address]Ioo Director: ЕЛЕНА Larios MD, Phone: [phone] [facility] HospitalMODIFIED BA. NBHRESA5355-31-09 16:55:00 [facility] [address] [address] Patient Name: Becky ORTIZ JR MR #: [id number] : 1940 Age/Sex: 79/M Req #: [id number] Adm Physician: BARBARA FERNÁNDEZ MD Ordered by: SHARIF DIEGO MD Report #: [id number] Location: ICU Room/Bed: ICU [facility] Procedure: [id number] DX/MODIF IED BA. SWALLOW Exam Date: 08/30/19 Exam Time: 1400 REPORT STATUS: Signed PROCEDURE: X-RAY MODIFIED BARIUM SWALLOW COMPARISON: None. INDICATION: Aspirati on Radiation Details: Fluoroscopy time: 3.4 minutes Cumulative dose: 19 .9 mGy DISCUSSION: Fluoroscopic examination was performed in conjunction [facility] speech pathology during swallowing a variety of thin and thick liquid consi stencies. Provided images demonstrate laryngeal penetration with thin liquids but no aspiration. CONCLUSION: Modified barium swallow demonstrating laryngeal penetration with thin liquids but no aspiration. Please refer to the speech pathology report for further details. Signed by: Brittany Patel MD on 08/30/2019 4:56 PM Dictated By: BRITTANY PATEL MD 55 Transcribed By: VIKA on 08/30/191655 COPY TO: SHARIF DIEGO MD ABDOMEN-1VIEW (KUB)2019-08-30 13:03:00 [place] [address] Patient Name: Becky ORTIZ JR MR #: [id number] : 1940 Age/Sex: 79/M Req #: [id number] Adm Physician: BARBARA FERNÁNDEZ MD Ordered by: BARBARA FERNÁNDEZ MD Report #: [id number] Location: ICU Room/Bed: ICU [facility] Procedure: [id number] DX/ABDOME N-1VIEW (KUB) Exam Date: 08/30/19 Exam Time: 1100 REPORT STATUS: Signed Exam: KUB - 2 views Indication: Dobbhoff placement Comparison: Prior KUBs most rec ently 08/27/2019 Findings: Initial KUB demonstrates weighted tip feeding tube terminating at the gastroesophageal junction. The tube was advanced by t zev ICU care team and subsequent repeat KUB shows tip below the diaphragm, term inating in the stomach. Impression: Weighted tip feeding tube with sangeeta l position in the stomach as above. Signed by: Brittany Patel MD on 08/30/2019 1:05 PM Dictated By: BRITTANY PATEL MD 04 Transcribed By: VIKA on 08/30/191304 COPY TO: BARBARA FERNÁNDEZ MD Vancomycin Level Tkqdez7080-04-46 09:46:00* Test Item Value Reference Range Interpretation Comments Vancomycin Level Trough (test code = 4092-3) 17.6 5.0-10.0 HH Results repeated and called to Jennifer Vora at 0945 on 08/30/19 by Darlin reed. Read back and verified.[facility] HospitalVancomycin Level Gzlhvx1069-18-83 09:46:00* Test Item Value Reference Range Interpretation Comments Vancomycin Level Trough (test code = 4092-3) 17.6 5.0-10.0 HH Results repeated and called to Jennifer Vora at 0945 on 08/30/19 by Darlin reed. Read back and verified.[facility] HospitalJAK2 Mutation (PCR)2019-08-29 13:02:00* Test Item Value Reference Range Interpretation Comments JAK2 Mutation (PCR) (test code = 61154-8) NEGATIVE [place] [address] V617F Interpretation/Report 2019-08-29 13:02:00* Test Item Value Reference Range Interpretation Comments JAK2 V617F Interpretation/Report (test code = 53447-8) The JAK2 V617F mutation is not detected in the provided specimen of this individual. This result does not rule out the presence of the JAK2 mutation at a level below the sensitivity of detection of this assay, or the presence of other mutations within JAK2 not detected by this assay. [facility] HospitalJAK2 V617F Xumfngry5591-00-49 13:02:00* Test Item Value Reference Range Interpretation Comments JAK2 V617F Specimen (test code = 08300-9) Background: The Quantitative Real- Time PCR assay detects V617F mutation (c.1849 G>T) observed in approximately 95% polycythemia vera (PV), 55% essential thrombocythemia (ET) and 55% primary myelofibrosis (PMF). It is also infrequently present (3-5%) in myelodysplastic syndrome, chronic myelomonocytic leukemia, and other atypical chronic myeloid disorders. The results should be interpreted in the context of all clinical and laboratory findings. No therapeutic action should be taken based solely on these results. This assay detects only the JAK2 V617F point mutation. Other mutations that may occur in the JAK2 gene will not be detected. [facility] HospitalJAK2 V617F Reviewed Ur6544-65-61 13:02:00 * Test Item Value Reference Range Interpretation Comments JAK2 V617F Reviewed By (test code = 88309-4) Director Review: Helder Garcia MD, PhD Director, Molecular Oncology [facility] for Molecular [place] [address] TESTING PERFORMED BY: [employer] [facility] [address] [place], [place] Director: John Yin MD [facility] HospitalJAK2 Mutation (PCR)2019-08-29 13:02:00* Test Item Value Reference Range Interpretation Comments JAK2 Mutation (PCR) (test code = 73614-1) NEGATIVE [facility] HospitalJA V617F Interpretation/Report 2019-08-29 13:02:00* Test Item Value Reference Range Interpretation Comments JAK2 V617F Interpretation/Report (test code = 77514-0) The JAK2 V617F mutation is not detected in the provided specimen of this individual. This result does not rule out the presence of the JAK2 mutation at a level below the sensitivity of detection of this assay, or the presence of other mutations within JAK2 not detected by this assay. [facility] HospitalJAK2 V617F Qkqzvqnd3089-33-22 13:02:00* Test Item Value Reference Range Interpretation Comments JAK2 V617F Specimen (test code = 69326-2) Background: The Quantitative Real- Time PCR assay detects V617F mutation (c.1849 G>T) observed in approximately 95% polycythemia vera (PV), 55% essential thrombocythemia (ET) and 55% primary myelofibrosis (PMF). It is also infrequently present (3-5%) in myelodysplastic syndrome, chronic myelomonocytic leukemia, and other atypical chronic myeloid disorders. The results should be interpreted in the context of all clinical and laboratory findings. No therapeutic action should be taken based solely on these results. This assay detects only the JAK2 V617F point mutation. Other mutations that may occur in the JAK2 gene will not be detected. [facility] HospitalJAK2 V617F Reviewed Wd3507-22-02 13:02:00 * Test Item Value Reference Range Interpretation Comments JAK2 V617F Reviewed By (test code = 95483-7) Director Review: Helder Garcia MD, PhD Director, Molecular On[facility] [place] [address] TESTING PERFORMED BY: [facility] [address] [place], [place] Director: John Yin MD [facility] HospitalVitamin B12 Wcfoh4047-27-67 06:10:00* Test Item Value Reference Range Interpretation Comments Vitamin B12 Level (test code = 06822-8) 827 213-816 H [facility] HospitalVitamin B12 Mufxr4390-60-54 06:10:00* Test Item Value Reference Range Interpretation Comments Vitamin B12 Level (test code = 47428-4) 827 213-816 H [facility] HospitalABDOMEN-1VIEW (KUB)2019-08-27 11:52:00 [facility] [address] [place] [address] Patient Name: Becky ORTIZ JR MR #: [id number] : 1940 Age/Sex: 79/M Req #: [id number] Adm Physician: BARBARA FERNÁNDEZ MD Ordered by: SHARIF DIEGO MD Report #: [id number] Location: ICU Room/Bed: ICU [facility] Procedure: [id number] DX/ABDOM EN-1VIEW (KU) Exam Date: 08/27/19 Exam Time: 1110 REPORT STATUS: Signed Exam: KUB - 2 views Clinical History: Enteric tube. Comparison: KUB 08/26/2019 at 7:40 PM. Findings/Impression: Limited evaluation secondary to soft tiss ue attenuation. The weighted enteric feeding tube terminates in the right uppe r quadrant, likely in the distal stomach or first portion of the duodenum. Sca ttered residual contrast within the colon. Moderate gaseous distention of the colon. Signed by: Dr. Arpit Mcfarland MD on 08/27/2019 11:54 AM Dictated By: ARPIT MCFARLAND MD 1154 Tr anscribed By: VIKA on 08/27/19 1154 COPY TO: SHARIF DIEGO MD ABDOMEN-1VIEW (KUB)2019-08-26 20:42:00 [place] [address] Patient Name: Becky ORTIZ JR MR #: [id number] : 1940 Age/Sex: 79/M Req #: [id number] Adm Physician: BARBARA FERNÁNDEZ MD Ordered by: BARBARA FERNÁNDEZ MD Report #: [id number] Location: ICU Room/Bed: ICU [facility] Procedure: [id number] DX/ABDOME N-1VIEW (KU) Exam Date: 08/26/19 Exam Time: 2012 REPORT STATUS: Signed ADDENDUM #1 Dobbhoff distal tip is projected on the right upper qu adrant in the expected location of the gastric antrum or possibly the first po rtion of the duodenum. Residual contrast within the cecum and rectum. Moderate diffuse gaseous distention of the colon. Signed by: Dr. Chan jones M.D. on 08/26/2019 10:04 PM ORIGINAL REPORT Ex am: Abdominal film Clinical History: Dobbhoff tube advancement Compar daniel: None. DISCUSSION: See impression IMPRESSION: Dobbhoff tube advanced with tip right of midline Signed by: Dr. Tatum Stanford M.D. on 08/26/2019 8:47 PM Dictated By: TATUM STANFORD MD Phoebe ctronically Signed By: TATUM STANFORD MD on 08/26/192203 Transcribed By: ANGELICA FERNÁNDEZ on 08/26/192046 COPY TO: BARBARA FERNÁNDEZ MD ABDOMEN-1VIEW (KUB) 2019-08-26 17:43:00 [place] [address] Patient Name: Becky ORTIZ JR MR #: [id number] : 1940 Age/Sex: 79/M Req #: [id number] Adm Physician: BARBARA FERNÁNDEZ MD Ordered by: BRITTANY PATEL MD Report #: [id number] Location: ICU Room/Bed: ICU [facility] Procedure: [id number] DX/ABDOME N-1VIEW (KUB) Exam Date: Exam Time: REPORT STATUS: Signed Exam: KUB - 2 views Indication: NG tube placement Comparison: KUB of 08/24/2019 Findings: Interval placement of weighted tip feeding tube. Initial images demonstrate coiling of the feeding tube in the proximal stomach. Following adjustment. The tube is uncoiled with tip below the diaphragm in the body of the stomach. No nobstructive bowel gas pattern. No free air. Residual contrast in the colon. Impression: NG tube projects below the diaphragm with tip in the body the st omach. Signed by: Brittany Patel MD on 08/26/2019 5:45 PM Dictated By: BRITTANY PATEL MD 44 Transcr ibed By: VIKA on 08/26/191744 COPY TO: BRITTANY PATEL MD Flow Cytometry Mveugpbuzufdes9028-20-51 05:05:00* Test Item Value Reference Range Interpretation Comments Flow Cytometry Interpretation (test code = HTL4796) Comment . No daignostic immunophenotypic abnormality detected, see commentNacogdoches Memorial HospitalLeukemia/Lymphoma Clinical Xdrr1119-29-99 05:05:00* Test Item Value Reference Range Interpretation Comments Leukemia/Lymphoma Clinical Info (test code = 59645-0) Comment . A recent CBC was not available for review at the time this report wasprepared. [facility] HospitalLeukemia/Lymphoma Mokupifk6991-11-50 05:05:00* Test Item Value Reference Range Interpretation Comments Leukemia/Lymphoma Specimen (test code = 15535-1) Comment . Peripheral bloodNacogdoches Memorial HospitalLeukemia/Lymph Leukocyte Nlllnyykxp3471-33-86 05:05:00* Test Item Value Reference Range Interpretation Comments Leukemia/Lymph Leukocyte Assessment (nanci t code = Leukemia/Lymph Leukocyte Assessment) Comment . No monoclonal B cell population is detected. kappa:lambda ratio 1.9There is no l oss of, or aberrant expression of, the huston T cell antigens tosuggest a neoplasti c T cell process.CD4:CD8 ratio 4.6No circulating blasts are detected.An absolute neutrophilia is present. Granulocytes show slightlyleft-shifted maturation.An a bsolute monocytosis is present. No significant phenotypic aberranciesof monocyte s detected. However, if an absolute monocytosis of 1000 cells/uLor more is prese nt for longer than 3 months, could consider evaluation forchronic myelomonocytic leukemia (CMML).Analysis of the lymphocyte population shows: B cells 13%, T kristi ls 80%, NKcells 7%.[facility] HospitalImmunophenotyping Cell Sfqykkdhz4342-81-79 05:05:00* Test Item Value Reference Range Interpretation Comments Immunophenotyping Cell Viability (test code = 24328-4) Comment . 88%The specimen was 3 days old when received in the Flow CytometryLaboratory.[facility] HospitalLeukemia/Lymphoma Gating Jehnhclh8397-97-75 05:05:00* Test Item Value Reference Range Interpretation Comments Leukemia/Lymphoma Gating Strategy (test code = Leukemia/Lymphoma Gating Strategy) Comment . 8 color analysis with CD45/SSCNacogdoches Memorial Hospital Leukemia/Lymphoma Phenotype Bohif9335-39-12 05:05:00* Test Item Value Reference Range Interpretation Comments Leukemia/Lymphoma Phenotype Chart (test code = Leukemia/Lymphoma Phenotype Chart) Comment . CD2 Normal CD3 NormalCD4 Normal CD5 Norm alCD7 Normal CD8 PqluoaVS28 Normal CD11b No dfjgCE16 Normal CD14 TpepotVO36 Normal CD19 KkwaheNF89 Normal CD33 EnzifoLS87 Normal CD38 MvprciBO75 Normal CD56 DjsbniHU90 Normal CD117 NormalHLA-DR Normal KAPPA NormalLAMBDA Normal CD64 NormalNacogdoches Memorial HospitalFlow Cytometry Signing Todgelfchrf0303-70-43 05:05:00* Test Item Value Reference Range Interpretation Comments Flow Cytometry Signing Pathologist (test code = 443175205) Comment . Cheryl Castrejon M.D.[facility] HospitalLeukemia/Lymphoma Thvbzwr0308-26-40 05:05:00* Test Item Value Reference Range Interpretation Comments Leukemia/Lymphoma Comment (test code = Leukemia/Lymphoma Comment) C omment . Each antibody in this assay was utilized to assess forpotential abnormalities of studied cell populations or tocharacterize identified abnormalities.This test w as developed and its performance characteristicsdetermined by [employer]. It has n ot been cleared or approvedby the U.S. Food and Drug Administration.The FDA has determined that such clearance or approval isnot necessary. This test is used fo r clinical purposes. Itshould not be regarded as investigational or for researc h.Performed at: -Y - [facility] [id number] [facility], [place] [address]Lab Director: John Yin MD, Phone: [phone] at: TG [facility] [id number] [place], [place] [id number] Director: John sena MD, Phone: [phone] Memorial HospitalFlow Cytometry Uzxirfxegymoge5604-72-71 05:05:00* Test Item Value Reference Range Interpretation Comments Flow Cytometry Interpretation (test code = NWT7017) Comment . No daignostic immunophenotypic abnormality detected, see commentNacogdoches Memorial HospitalLeukemia/Lymphoma Clinical Tmcy9794-74-38 05:05:00* Test Item Value Reference Range Interpretation Comments Leukemia/Lymphoma Clinical Info (test code = 37065-5) Comment . A recent CBC was not available for review at the time this report wasprepared. [facility] HospitalLeukemia/Lymphoma Wouvsaod3063-87-05 05:05:00* Test Item Value Reference Range Interpretation Comments Leukemia/Lymphoma Specimen (test code = 64662-2) Comment . Peripheral bloodCHI Memorial Hermann Southeast HospitalLeukemia/Lymph Leukocyte Pzchqiowxl9235-86-30 05:05:00* Test Item Value Reference Range Interpretation Comments Leukemia/Lymph Leukocyte Assessment (nanci t code = Leukemia/Lymph Leukocyte Assessment) Comment . No monoclonal B cell population is detected. kappa:lambda ratio 1.9There is no l oss of, or aberrant expression of, the huston T cell antigens tosuggest a neoplasti c T cell process.CD4:CD8 ratio 4.6No circulating blasts are detected.An absolute neutrophilia is present. Granulocytes show slightlyleft-shifted maturation.An a bsolute monocytosis is present. No significant phenotypic aberranciesof monocyte s detected. However, if an absolute monocytosis of 1000 cells/uLor more is prese nt for longer than 3 months, could consider evaluation forchronic myelomonocytic leukemia (CMML).Analysis of the lymphocyte population shows: B cells 13%, T kristi ls 80%, NKcells 7%.[facility] HospitalImmunophenotyping Cell Usdzssuts2164-70-62 05:05:00* Test Item Value Reference Range Interpretation Comments Immunophenotyping Cell Viability (test code = 91372-1) Comment . 88%The specimen was 3 days old when received in the Flow CytometryLaboratory.[facility] HospitalLeukemia/Lymphoma Gating Fgvllgsb8146-81-25 05:05:00* Test Item Value Reference Range Interpretation Comments Leukemia/Lymphoma Gating Strategy (test code = Leukemia/Lymphoma Gating Strategy) Comment . 8 color analysis with CD45/SSCCHI [facility] Leukemia/Lymphoma Phenotype Hmqow0645-71-16 05:05:00* Test Item Value Reference Range Interpretation Comments Leukemia/Lymphoma Phenotype Chart (test code = Leukemia/Lymphoma Phenotype Chart) Comment . CD2 Normal CD3 NormalCD4 Normal CD5 Norm alCD7 Normal CD8 IznnopJI95 Normal CD11b No eybvMR77 Normal CD14 UgpunlUY46 Normal CD19 MfpzmmTB39 Normal CD33 NyboiwYM98 Normal CD38 YvrmymUN82 Normal CD56 DsgarrOE42 Normal CD117 NormalHLA-DR Normal KAPPA NormalLAMBDA Normal CD64 NormalCHI Memorial Hermann Southeast HospitalFlow Cytometry Signing Wgunekdylzg4202-37-24 05:05:00* Test Item Value Reference Range Interpretation Comments Flow Cytometry Signing Pathologist (test code = 944365622) Comment . Cheryl Castrejon M.D.[facility] HospitalLeukemia/Lymphoma Mwpomua5914-07-36 05:05:00* Test Item Value Reference Range Interpretation Comments Leukemia/Lymphoma Comment (test code = Leukemia/Lymphoma Comment) C omment . Each antibody in this assay was utilized to assess forpotential abnormalities of studied cell populations or tocharacterize identified abnormalities.This test w as developed and its performance characteristicsdetermined by [employer]. It has n ot been cleared or approvedby the U.S. Food and Drug Administration.The FDA has determined that such clearance or approval isnot necessary. This test is used fo r clinical purposes. Itshould not be regarded as investigational or for researc h.Performed at: -Y - [facility] [id number] [address] [facility], [place], [place] [address]Lab Director: John Yin MD, Phone: [phone] at: TG - [facility] [id number], [facility], [place] [id number] Director: John sena MD, Phone: [phone] [facility] Vvxerhk6502-30-21 09:39:00* Test Item Value Reference Range Interpretation Comments Anaerobic Culture (test code = 635-3) No Result Data Provided [facility] Ezqvrsz7134-34-12 09:39:00* Test Item Value Reference Range Interpretation Comments Anaerobic Culture (test code = 635-3) No Result Data Provided [facility] Xtbkagu7836-39-48 09:34:00* Test Item Value Reference Range Interpretation Comments Anaerobic Culture (test code = 635-3) No Result Data Provided [facility] Jrpvowv9457-25-62 09:34:00* Test Item Value Reference Range Interpretation Comments Anaerobic Culture (test code = 635-3) No Result Data Provided [facility] HospitalCT ABDOMEN DX6591-13-43 00:28:00 [facility] [address] [address] Patient Name: Becky ORTIZ JR MR #: [id number] : 1940 Age/Sex: 79/M Req #: [id number] Adm Physician: BARBARA FERNÁNDEZ MD Ordered by: BARBARA FERNÁNDEZ MD Report #: [id number] Location: ICU Room/Bed: ICU [facility] Procedure: [id number] CT/CT ABD OMEN WO Exam Date: 08/24/19 Exam Time: 2355 REPORT STATUS: Signed EXAM: CT Abdomen W ITHOUT contrast INDICATION: Pain. Pneumonia. Further evaluate position of KU B not well visualized on recent KUBs. COMPARISON: None. TECHNIQUE: Abdomen and pelvis were scanned utilizing a multidetector helical scanner from the no ng base to the pubic symphysis without administration of IV contrast. Absence of intravenous contrast decreases sensitivity for detection of focal lesions a nd vascular pathology. Coronal and sagittal reformations were obtained. Routin e protocol was performed. IV CONTRAST: None. ORAL C ONTRAST: Positive oral contrast. RADIATION DOSE: Total DLP: 902.83 mGy*cm Estimated effective dose: (DLP x 0.015 x size factor) mSv COMPLICATIONS: None FINDINGS: LINES and TUBES: NG/oroga stric tube with distal tip within the gastric body, adequate position. LO WER THORAX: Airspace disease with bronchograms in the posterior lung bases bi laterally, left greater than right may represent atelectasis versus pneumonia proper clinical setting. Multivessel coronary artery calcifications. Calcifica tions of the mitral and aortic valves. The heart is mildly enlarged. HEPATO BILIARY: No focal hepatic lesions. No biliary ductal dilation. GALLBLADDER : No radio-opaque stones or sludge. No wall thickening. The gallbladder is mi ldly hydropic measuring 5.5 cm in transverse dimension. SPLEEN: No splenome alannah. PANCREAS: No focal masses or ductal dilatation. ADRENALS: No adrenal nodules KIDNEYS/URETERS: No hydronephrosis. 2.9 cm cyst exophy tic of the lateral interpolar region of the right kidney possibly hyperdense c yst. Just superior to it, there is a 2.9 cm simple cyst in the right kidney. 2 .0 cm cyst exophytic of the posterior lower pole of the left kidney. Vascular calcifications. No stones. GI TRACT: No abnormal distention, wall thicken ing, or evidence of bowel obstruction. There are diverticula within the colon without evidence of diverticulitis. PELVIC ORGANS/BLADDER: Unremarkabl e. LYMPH NODES: No lymphadenopathy. VESSELS: Unremarkable. PERITO NEUM / RETROPERITONEUM: No free air or fluid. BONES: There are degenerative changes in the lumbar spine. Remote healed left sided rib fractures SOFT TISSUES: Unremarkable. IMPRESSION: 1. NG/orogastric tube with di stal tip within the gastric body, adequate position in the gastric antrum. Ret rospectively, the tube projected on the right upper quadrant in a neutral posi tion, however, due to morphology of the stomach. 2. Posterior bibasilar a telectasis versus consolidation. 3. Mild gallbladder hydrops. Signed b y: Dr. Chan Ricci M.D. on 08/25/2019 12:37 AM Dictated By: HOSSEIN RICCI MD, MD 37 Transcribed By: VIKA on 08/25/19 0037 COPY TO: BARBARA FERNÁNDEZ MD ABDOMEN-1VIEW (KUB)2019-08-24 22:14:00 [place] [address] Patient Name: Becky ORTIZ JR MR #: [id number] : 1940 Age/Sex: 79/M Req #: [id number] Adm Physician: BARBARA FERNÁNDEZ MD Ordered by: BARBARA FERNÁNDEZ MD Report #: [id number] Location: ICU Room/Bed: ICU 1901 Procedure: [id number] DX/ABDOME N-1VIEW ([facility]) Exam Date: 08/24/19 Exam Time: 2109 REPORT STATUS: Signed EXAM: ABDOM EN-1VIEW ([facility]), DATE: 08/24/2019 8:37 PM INDICATION: NG tube placement. COMPARISON: 08/24/2019 1901 hours. FINDINGS: Limited exam as the upper mo st abdomen not completely included. LINES/TUBES: Tubing partially visualize d projected on the right upper quadrant may be overlying the patient and not c ompatible with a nasogastric tube normal position. BOWEL PATTERN: Mild di ffuse colonic distention. Residual contrast in the cecum and distal small christopher l loops. SOFT TISSUES: No abnormal calcifications. No mass effect. DEBBIE G BASES: Not included BONES: No acute findings. IMPRESSION: Limited exam. A normally positioned nasogastric tube is not visualized. Recommend furt her evaluating with a chest radiograph, as well as and KUB concentrating on th e upper abdomen. Signed by: Dr. Chan Ricci M.D. on 10:17 PM Dictated By: NICO RICCI MD, MD Electronically Machelle d By: NICO RICCI MD, MD on 08/24/192216 Transcribed By: VIKA on 08/24/192216 COPY TO: BARBARA FERNÁNDEZ MD ABDOMEN-1VIEW (KU)2019-08-24 19:44:00 [place] [address] Patient Name: ANGEL MCCABEBecky MR #: [id number] : 1940 Age/Sex: 79/M Req #: [id number] Adm Physician: BARBARA FERNÁNDEZ MD Ordered by: BARBARA FERNÁNDEZ MD Report #: [id number] Location: ICU Room/Bed: ICU 190-1 Procedure: [id number] DX/ABDOME N-1VIEW (KUB) Exam Date: 08/24/19 Exam Time: 1929 REPORT STATUS: Signed Exam: Abd ominal film Clinical History: NG tube placement Comparison: None. DISCUSSION: See impression IMPRESSION: Severely limited radiograph. No visualized enteric tube. Signed by: Dr. Tatum dao M.D. on 08/24/2019 7:45 PM Dictated By: TATUM STANFORD MD Electronic ally Signed By: TATUM STANFORD MD on 08/24/191944 Transcribed By: VIKA on 08/24/191944 COPY TO: BARBARA FERNÁNDEZ MD MODIFIED BA. SWALLOW 2019-08-23 10:00:00 [place] [address] Patient Name: Becky ORTIZ JR Kate MR #: [id number] : 1940 Age/Sex: 79/M Req #: [id number] Adm Physician: BARBARA FERNÁNDEZ MD Ordered by: SHARIF DIEGO MD Report #: [id number] Location: ICU Room/Bed: ICU 190-1 Procedure: [id number] DX/MODIF IED BA. SWALLOW Exam Date: Exam Time: REPORT STATUS: Signed Exam: Modified barium swallow Clinical history: Dysphasia Total images 20 Total fluoros copy time 3.7 minute Findings: Modified barium swallow was performed by the speech pathologist. Radiologist was not present during the exam. Please refer to the speech pathology report for further details. Signed by: Dr. Raj Shearer MD on 08/23/2019 10:01 AM Dictated By: RAMONA SHEARER MD Electron ically Signed By: RAMONA SHEARER MD on 08/23/19 1001 Transcribed By: VIKA on 08/23/19 1001 COPY TO: SHARIF DIEGO MD Differential Total Cells Gxrbquj5159-76-88 07:05:00* Test Item Value Reference Range Interpretation Comments Differential Total Cells Counted (test code = Differen tial Total Cells Counted) 100 [facility] HospitalNeutrophils % (Manual)2019-08-23 07:05:00 * Test Item Value Reference Range Interpretation Comments Neutrophils % (Manual) (test code = 68556-7) 87 40-74 H [facility] HospitalLymphocytes % (Manual)2019-08-23 07:05:00 * Test Item Value Reference Range Interpretation Comments Lymphocytes % (Manual) (test code = 737-7) 7 19-48 L [facility] HospitalMonocytes % (Manual)2019-08-23 07:05:00* Test Item Value Reference Range Interpretation Comments Monocytes % (Manual) (test code = 744-3) 4 3.4-9.0 [facility] HospitalEosinophils % (Manual)2019-08-23 07:05:00 * Test Item Value Reference Range Interpretation Comments Eosinophils % (Manual) (test code = 714-6) 1 0-7 [facility] HospitalMyelocytes %2019-08-23 07:05:00* Test Item Value Reference Range Interpretation Comments Myelocytes % (test code = 749-2) 1 0-0 H [facility] HospitalPlatelet Wwtyaukb1790-74-70 07:05:00* Test Item Value Reference Range Interpretation Comments Platelet Estimate (test code = 22398-0) MODERATELY INCREASED [facility] HospitalPlatelet Morphology Ifcujpi5533-88-22 07:05:00* Test Item Value Reference Range Interpretation Comments Platelet Morphology Comment (test code = 84276-9) FEW LARGE [facility] HospitalRed Cell Morphology Ijkzecq1838-10-78 07:05:00* Test Item Value Reference Range Interpretation Comments Red Cell Morphology Comment (test code = 6742-1) NORMAL [facility] HospitalDifferential Total Cells Counted 2019-08-23 07:05:00* Test Item Value Reference Range Interpretation Comments Differential Total Cells Counted (test code = Differen tial Total Cells Counted) 100 [facility] HospitalNeutrophils % (Manual)2019-08-23 07:05:00 * Test Item Value Reference Range Interpretation Comments Neutrophils % (Manual) (test code = 69485-6) 87 40-74 H [facility] HospitalLymphocytes % (Manual)2019-08-23 07:05:00 * Test Item Value Reference Range Interpretation Comments Lymphocytes % (Manual) (test code = 737-7) 7 19-48 L [facility] HospitalMonocytes % (Manual)2019-08-23 07:05:00* Test Item Value Reference Range Interpretation Comments Monocytes % (Manual) (test code = 744-3) 4 3.4-9.0 [facility] HospitalEosinophils % (Manual)2019-08-23 07:05:00 * Test Item Value Reference Range Interpretation Comments Eosinophils % (Manual) (test code = 714-6) 1 0-7 [facility] HospitalMyelocytes %2019-08-23 07:05:00* Test Item Value Reference Range Interpretation Comments Myelocytes % (test code = 749-2) 1 0-0 H [facility] HospitalPlatelet Dzxqafid1049-30-16 07:05:00* Test Item Value Reference Range Interpretation Comments Platelet Estimate (test code = 48540-1) MODERATELY INCREASED [facility] HospitalPlatelet Morphology Cggqjos2752-85-17 07:05:00* Test Item Value Reference Range Interpretation Comments Platelet Morphology Comment (test code = 64073-3) FEW LARGE [facility] HospitalRed Cell Morphology Lkafptm7799-57-88 07:05:00* Test Item Value Reference Range Interpretation Comments Red Cell Morphology Comment (test code = 6742-1) NORMAL [facility] HospitalUric Cfro8899-94-13 12:45:00* Test Item Value Reference Range Interpretation Comments Uric Acid (test code = 3084-1) 17.2 4.8-8.0 H [facility] HospitalUric Viot2286-37-71 12:45:00* Test Item Value Reference Range Interpretation Comments Uric Acid (test code = 3084-1) 17.2 4.8-8.0 H [facility] HospitalC-Reactive Vlplnxc1486-04-82 01:39:00* Test Item Value Reference Range Interpretation Comments C-Reactive Protein (test code = 1988-5) 304 0-10 H Performed at: - Lab[address] [id number] Director: Alan Charles MD, Phone: [phone] Memorial HospitalC-Reactive Onewwjc5239-00-79 01:39:00* Test Item Value Reference Range Interpretation Comments C-Reactive Protein (test code = 1988-5) 304 0-10 H Performed at: - [facility] [address] [id number] Director: Alan Charles MD, Phone: [phone] Children's Hospital Houstontool Occult Rxaiu5342-58-31 22:09:00* Test Item Value Reference Range Interpretation Comments Stool Occult Blood (test code = 2335-8) NEGATIVE NEGATIVE [facility] Houstontool Occult Uqbrl6793-44-27 22:09:00* Test Item Value Reference Range Interpretation Comments Stool Occult Blood (test code = 2335-8) NEGATIVE NEGATIVE [facility] HospitalArterial Blood hM2173-19-23 10:04:00* Test Item Value Reference Range Interpretation Comments Arterial Blood pH (test code = 2744-1) 7.38 7.31-7.41 [facility] HospitalArterial Blood Partial Pressure CO2 2019-08-21 10:04:00* Test Item Value Reference Range Interpretation Comments Arterial Blood Partial Pressure CO2 (test code = 2019-06) 37 41-51 L [facility] HospitalArterial Blood Partial Pressure O2 2019-08-21 10:04:00* Test Item Value Reference Range Interpretation Comments Arterial Blood Partial Pressure O2 (test code = 2019-06) 94 80-105 [facility] Blood USX17813-95-14 10:04:00* Test Item Value Reference Range Interpretation Comments Arterial Blood HCO3 (test code = 1960-4) 21 23-28 L [facility] HospitalArterial Blood Base Dlfuku2381-05-44 10:04:00* Test Item Value Reference Range Interpretation Comments Arterial Blood Base Excess (test code = 1925-7) -4.0 -2-3 L [facility] HospitalArterial Blood Oxygen Saturation 2019-08-21 10:04:00* Test Item Value Reference Range Interpretation Comments Arterial Blood Oxygen Saturation (test code = 2708-6) 97.0 95-98 [facility] HospitalFiO22019-10-06 10:04:00* Test Item Value Reference Range Interpretation Comments FiO2 (test code = FiO2) 40 CPAP/PS PS 8, +5, 40%Total RR: 20[facility] Blood lE2115-86-35 10:04:00* Test Item Value Reference Range Interpretation Comments Arterial Blood pH (test code = 2744-1) 7.38 7.31-7.41 [facility] HospitalArterial Blood Partial Pressure CO2 2019-08-21 10:04:00* Test Item Value Reference Range Interpretation Comments Arterial Blood Partial Pressure CO2 (test code = 2019-06) 37 41-51 L [facility] HospitalArterial Blood Partial Pressure O2 2019-08-21 10:04:00* Test Item Value Reference Range Interpretation Comments Arterial Blood Partial Pressure O2 (test code = 2019-06) 94 80-105 [facility] HospitalArterial Blood BKV13773-63-21 10:04:00* Test Item Value Reference Range Interpretation Comments Arterial Blood HCO3 (test code = 1960-4) 21 23-28 L [facility] Blood Base Tnlxal7346-41-20 10:04:00* Test Item Value Reference Range Interpretation Comments Arterial Blood Base Excess (test code = 1925-7) -4.0 -2-3 L [facility] HospitalArterial Blood Oxygen Saturation 2019-08-21 10:04:00* Test Item Value Reference Range Interpretation Comments Arterial Blood Oxygen Saturation (test code = 2708-6) 97.0 95-98 [facility] HospitalFiO22019-10-06 10:04:00* Test Item Value Reference Range Interpretation Comments FiO2 (test code = FiO2) 40 CPAP/PS PS 8, +5, 40%Total RR: 20[facility] HospitalRanliberty hospital Vancomycin Zloif0082-29-77 06:48:00* Test Item Value Reference Range Interpretation Comments Random Vancomycin Level (test code = 30874-7) 18.2 [facility] Vancomycin Miwez6428-11-55 06:48:00* Test Item Value Reference Range Interpretation Comments Random Vancomycin Level (test code = 69648-4) 18.2 [facility] Fgmtlkr6681-16-63 08:22:00* Test Item Value Reference Range Interpretation Comments Wound Culture (test code = 6462-6) No Result Data Provided [facility] Ywgsylx0367-72-54 08:22:00* Test Item Value Reference Range Interpretation Comments Wound Culture (test code = 6462-6) No Result Data Provided [facility] HospitalBand Neutrophils %2019-08-20 08:20:00* Test Item Value Reference Range Interpretation Comments Band Neutrophils % (test code = 764-1) 2 [facility] HospitalBasophils % (Manual)2019-08-20 08:20:00* Test Item Value Reference Range Interpretation Comments Basophils % (Manual) (test code = 58382-5) 1 0-1.5 [facility] HospitalBand Neutrophils %2019-08-20 08:20:00* Test Item Value Reference Range Interpretation Comments Band Neutrophils % (test code = 764-1) 2 [facility] HospitalBasophils % (Manual)2019-08-20 08:20:00* Test Item Value Reference Range Interpretation Comments Basophils % (Manual) (test code = 32935-9) 1 0-1.5 [facility] RIGHT 1 QMCJ2388-43-15 00:17:00 [facility] [address] [address] Patient Name: Becky ORTIZ JR MR #: [id number] : 1940 Age/Sex: 79/M Req #: [id number] Adm Physician: BARBARA FERNÁNDEZ MD Ordered by: BARBARA FERNÁNEDZ MD Report #: [id number] Location: [facility]/Bed: ICU [facility] Procedure: [id number] DX/SHOULD ER RIGHT 1 VIEW Exam Date: 08/19/19 Exam Time: 2350 REPORT STATUS: Signed X-RAY RIGHT SHOULDER ONE VIEW HISTORY: Pain. COMPARISON: None available. FINDINGS: Bones: No acute displaced fracture. Osseous alignment is within normal limits. Joints: The osteophytes and joint space loss at the acromioclavicular joint. Normal glenohumeral joint alignment. Soft ti ssues: The soft tissues appear unremarkable. IMPRESSION: Limited evaluation of the shoulder with a single view. No acute displaced fracture or dislocation. Degenerative changes at the acromioclavicular joint. Signed by: Joseph Keen DO on 08/20/2019 12:27 AM Dictated By: JOSEPH VASQUEZ DO Transcrib ed By: VIKA on 08/20/1926 COPY TO: BARBARA FERNÁNDEZ MD Wound Jxoryra9288-39-66 13:54:00* Test Item Value Reference Range Interpretation Comments Wound Culture (test code = 6462-6) No Result Data Provided [facility] HospitalClumped Tnmwqgzsv3635-48-34 09:06:00* Test Item Value Reference Range Interpretation Comments Clumped Platelets (test code = 7796-6) RARE NONE [facility] Khjpblhsq6725-97-98 09:06:00* Test Item Value Reference Range Interpretation Comments Large Platelets (test code = 5908-9) FEW [facility] Qbskntvzr3406-45-32 09:06:00* Test Item Value Reference Range Interpretation Comments Giant Platelets (test code = 5908-9) RARE [facility] HospitalClumped Bkctvnglw4302-28-44 09:06:00* Test Item Value Reference Range Interpretation Comments Clumped Platelets (test code = 7796-6) RARE NONE [facility] HospitalLascci [facility] Nwrddcxzv3187-00-12 09:06:00* Test Item Value Reference Range Interpretation Comments Large Platelets (test code = 5908-9) FEW [facility] Ptubwwjsr1902-75-20 09:06:00* Test Item Value Reference Range Interpretation Comments Giant Platelets (test code = 5908-9) RARE [facility] HospitalFolate2019-10-04 07:39:00* Test Item Value Reference Range Interpretation Comments Folate (test code = 2284-8) 13.6 7.0-15.4 [facility] HospitalFolate2019-10-04 07:39:00* Test Item Value Reference Range Interpretation Comments Folate (test code = 2284-8) 13.6 7.0-15.4 [facility] HospitalHemoglobin A1c Ymdospo9504-92-51 07:34:00 * Test Item Value Reference Range Interpretation Comments Hemoglobin A1c Percent (test code = Hemoglobin A1c Percent) 7.0 4.0-7.0 [facility] HospitalErythrocyte Sedimentation Mark0725-81-17 06:58:00* Test Item Value Reference Range Interpretation Comments Erythrocyte Sedimentation Rate (test code = 4537-7) 129 0- 13 H [facility] HospitalErythrocyte Sedimentation Difc4703-57-84 06:58:00* Test Item Value Reference Range Interpretation Comments Erythrocyte Sedimentation Rate (test code = 4537-7) 129 0- 13 H [facility] HospitalCT MAXIO FAC/PARANAS HQ0295-09-86 12:05:00 [facility] [address] [address] Patient Name: Becky ORTIZ JR MR #: [id number] : 1940 Age/Sex: 79/M Req #: [id number] Adm Physician: BARBARA FERNÁNDEZ MD Ordered by: FANNY UP MD Report #: [id number] Location: ICU Room/Bed: ICU [facility] Procedure: [id number] CT/C T MAXIO FAC/PARANAS WO Exam Date: 08/18/19 Exam Time : 1155 REPORT STATUS: Signed CT NECK AND FACE WITHOUT IV CONTRAST History: Swelling of the left neck and ch resighini Comparison studies: None Technique: Axial images were obtained fro m the skull base to the thoracic inlet. Coronal and sagittal images reconstruc christelle from the axial data. Intravenous contrast: None Dose modulation, iter ative reconstruction, and/or weight based adjustment of the mA/kV was utilized to reduce the radiation dose to as low as reasonably achievable. Find ings: Evaluation of the neck is limited due to the absence of intravenous c ontrast. In spite of this limitation, Soft tissues: Diffuse enlargement of the left parotid superficial lobe with surrounding fatty stranding and thi ckened platysma muscle at the left lateral suprahyoid neck. Punctate calcifica tions within the largest parotid gland. Small skin defect at the left lateral cheek overlying the anterior aspect of the enlarged left parotid gland Ly mph nodes: No radiographically significant adenopathy. Vessels: Canno t evaluate. Atherosclerotic calcifications of the distal common carotid arteri es, carotid bulbs and siphons. Atherosclerotic calcifications of the thoracic aorta. Partially visualized right internal jugular catheter with tip at the SV C. The main pulmonary artery measuring 4.4 cm, acute enlarged, suggestive of p ulmonary hypertension. Glands (thyroid and submandibular): Normal in siz e and symmetric. No masses. Orbits: No abnormalities. Paranasal sinuses: Small mucus retention cysts at the right sphenoid and left maxillary sinuses. Temporal bones: No abnormalities. Skull base and facial bones: Intact. Cervical spine: No high-grade canal stenosis or foraminal narrowing IM PRESSION: 1. Enlarged superficial lobe of the left parotid gland with sign ificant surrounding fatty stranding and thickened platysma muscle at the supra hyoid neck, with associated punctate calcifications within the parenchyma and adjacent skin laceration, this is suggestive of inflammatory/infectious etio logy, clinical correlation recommended. No significant drainable fluid collect ion, although evaluation is limited due to the lack of IV contrast. 2. Enl arged pulmonary artery, suggestive of retention. 3. Diffuse atheroscleroti c disease. Signed by: DR Cruz Lombardi M.D. on 08/18/2019 12:32 PM Dictated By: CRUZ YEUNG MD 1232 Transcribed By: VIKA on 08/18/19 1232 C OPY TO: FANNY UP MD CT SOFT TISSUE NECK [id number] 12:05:00 [place] [address] Patient Name: Becky ORTIZ JR MR #: [id number] : 1940 Age/Sex: 79/M Req #: [id number] Adm Physician: BARBARA FERNÁNDEZ MD Ordered by: FANNY UP MD Report #: [id number] Location: ICU Room/Bed: ICU [facility] Procedure: [id number] CT/C T SOFT TISSUE NECK WO Exam Date: 08/18/19 Exam Time: 1155 REPORT STATUS: Signed CT N SHWETHA AND FACE WITHOUT IV CONTRAST History: Swelling of the left neck and liza ek Comparison studies: None Technique: Axial images were obtained from the skull base to the thoracic inlet. Coronal and sagittal images reconstruct ed from the axial data. Intravenous contrast: None Dose modulation, itera tive reconstruction, and/or weight based adjustment of the mA/kV was utilized to reduce the radiation dose to as low as reasonably achievable. Findi ngs: Evaluation of the neck is limited due to the absence of intravenous co ntrast. In spite of this limitation, Soft tissues: Diffuse enlargement of the left parotid superficial lobe with surrounding fatty stranding and thic kened platysma muscle at the left lateral suprahyoid neck. Punctate calcificat ions within the largest parotid gland. Small skin defect at the left lateral c heek overlying the anterior aspect of the enlarged left parotid gland Lym ph nodes: No radiographically significant adenopathy. Vessels: Cannot evaluate. Atherosclerotic calcifications of the distal common carotid arterie s, carotid bulbs and siphons. Atherosclerotic calcifications of the thoracic a prema. Partially visualized right internal jugular catheter with tip at the SVC . The main pulmonary artery measuring 4.4 cm, acute enlarged, suggestive of pu lmonary hypertension. Glands (thyroid and submandibular): Normal in size and symmetric. No masses. Orbits: No abnormalities. Paranasal sinuses: Small mucus retention cysts at the right sphenoid and left maxillary sinuses. Temporal bones: No abnormalities. Skull base and facial bones: Intact. Cervical spine: No high-grade canal stenosis or foraminal narrowing IMP RESSION: 1. Enlarged superficial lobe of the left parotid gland with signi ficant surrounding fatty stranding and thickened platysma muscle at the suprah yoid neck, with associated punctate calcifications within the parenchyma and adjacent skin laceration, this is suggestive of inflammatory/infectious etiol ogy, clinical correlation recommended. No significant drainable fluid collecti on, although evaluation is limited due to the lack of IV contrast. 2. Enla rged pulmonary artery, suggestive of retention. 3. Diffuse atherosclerotic disease. Signed by: DR Cruz Lombardi M.D. on 08/18/2019 12:32 PM Dictated By: CRUZ YEUNG MD 1232 Transcribed By: VIKA on 08/18/19 1232 CO PY TO: FANNY UP MD CHEST SINGLE (PORTABLE)2019-08-18 12:01:00 [place] [address] Patient Name: Becky ORTIZ JR MR #: [id number] : 1940 Age/Sex: 79/M Req #: [id number] Adm Physician: BARBARA FERNÁNDEZ MD Ordered by: MACHO HAMILTON MD Report #: [id number] Location: ICU Room/Bed: ICU [facility] Procedure: [id number] DX/CHEST SINGLE (PORTABLE) Exam Date: 08/18/19 Exam Time: 111 0 REPORT STATUS: Signed Chest, 1 view, 08/18/2019. History: Crackles. Comparison: 08/15/2018. Findings: The cardiomediastinal silhouette and pulmonary vasculature are pr ominent with unchanged bilateral perihilar opacities. Right IJ central line is again noted. There are no acute osseous or soft tissue abnormalities. Imp ression: No significant change. Signed by: Reinaldo Burk on 08/18/2019 1 2:02 PM Dictated By: REINALDO BURK MD 1202 Transcribed By: VIKA on 08/18/19 1202 COPY T O: MACHO HAMILTON MD Prothrombin [id number] 05:34:00* Test Item Value Reference Range Interpretation Comments Prothrombin Time (test code = 5902-2) 16.9 11.9-14.5 [facility] HospitalProthromb Time International Ratio 2019-08-18 05:34:00* Test Item Value Reference Range Interpretation Comments Prothromb Time International Ratio (test code = 6301-6) 1.31 Oral Anticoagulant Therapy INR Values:1. Low Intensity Therapy 1.5 - 2.02 . Moderate Intensity Therapy 2.0 - 3.03. High Intensity Therapy(1) 2.5 - 3. 54. High Intensity Therapy(2) 3.0 - 4.05. Panic Value INR > 5.0 [facility] HospitalActivated Partial Thromboplast Time 2019-08-18 05:34:00* Test Item Value Reference Range Interpretation Comments Activated Partial Thromboplast Time (test code = 49000-5) 48.2 23.8-35.5 H [facility] HospitalProthrombin Lqka3580-52-40 05:34:00* Test Item Value Reference Range Interpretation Comments Prothrombin Time (test code = 5902-2) 16.9 11.9-14.5 [facility] HospitalProthromb Time International Ratio 2019-08-18 05:34:00* Test Item Value Reference Range Interpretation Comments Prothromb Time International Ratio (test code = 6301-6) 1.31 Oral Anticoagulant Therapy INR Values:1. Low Intensity Therapy 1.5 - 2.02 . Moderate Intensity Therapy 2.0 - 3.03. High Intensity Therapy(1) 2.5 - 3. 54. High Intensity Therapy(2) 3.0 - 4.05. Panic Value INR > 5.0 [facility] HospitalActivated Partial Thromboplast Time 2019-08-18 05:34:00* Test Item Value Reference Range Interpretation Comments Activated Partial Thromboplast Time (test code = 30288-6) 48.2 23.8-35.5 [facility] HospitalCT BRAIN [id number] 11:42:00 [facility] [address] [place] [address] Patient Name: Becky ORTIZ JR MR #: [id number] : 1940 Age/Sex: 79/M Req #: [id number] Adm Physician: BARBARA FERNÁNDEZ MD Ordered by: FANNY UP MD Report #: [id number] Location: ICU Room/Bed: ICU [facility] Procedure: [id number] CT/C T BRAIN WO Exam Date: 08/17/19 Exam Time: 1117 REPORT STATUS: Signed EXAMINATION: He ad CT HISTORY: Altered mental status COMPARISON: None available TECHNI QUE: Multidetector axial images were obtained without contrast from the forame n magnum to the vertex . The images were reconstructed using brain and bone al gorithms. Thin section brain images were reformatted into coronal and sagitta l planes. Image quality: Motion/streaking artifact limits the evaluation of th e skull base and posterior cranial fossa. Dose modulation, iterative reconst ruction, and/or weight based adjustment of the mA/kV was utilized to reduce th e radiation dose to as low as reasonably achievable. Image quality: Artifact from patient's motion limits evaluation of the study FINDINGS: P arenchyma: 1. No abnormal densities. 2. No mass or hemorrhage. No CT evid ence of acute territorial vascular insult. Extra-axial spaces:N o abnormal density. No extra-axial fluid collections Brain volume: Mariluz l for age. Ventricles: No hydrocephalus or displacement. Arteri es: No density suggestive of thrombus. Dural sinuses: No abnormal densit y. Extra-axial spaces: No abnormal density. Foramen magnum: No m ass, Chiari malformation, or basilar invagination. Sella: No obvious mas s. Paranasal/mastoid sinuses: Imaged portions unremarkable. Sku ll/Scalp: No lytic or blastic lesions. No fractures. IMPRESSION: Sub optimal study due to patient's motion, grossly no acute intracranial abnormali ties. Signed by: Dr. Guanakito Correa M.D. on 08/17/2019 11:44 AM Dictate d By: GUANAKITO CORREA MD 1144 Transcribed By: VIKA on 08/17/19 1144 COPY TO: FANNY UP MD Metamyelocytes %2019-08-17 06:46:00* Test Item Value Reference Range Interpretation Comments Metamyelocytes % (test code = 740-1) 2 0-0 [facility] HospitalAnisocytosis2019-10-02 06:46:00* Test Item Value Reference Range Interpretation Comments Anisocytosis (test code = 702-1) SLIGHT [facility] HospitalMetamyelocytes %2019-08-17 06:46:00* Test Item Value Reference Range Interpretation Comments Metamyelocytes % (test code = 740-1) 2 0-0 [facility] HospitalAnisocytosis2019-10-02 06:46:00* Test Item Value Reference Range Interpretation Comments Anisocytosis (test code = 702-1) SLIGHT [facility] HospitalAlbumin (PEP)2019-08-16 19:59:00* Test Item Value Reference Range Interpretation Comments Albumin (PEP) (test code = Albumin (PEP)) 1.6 2.9-4.4 L [facility] HospitalAlpha-1-Xowxdckkn1850-87-57 19:59:00* Test Item Value Reference Range Interpretation Comments Fttdb-6-Vmuyvcysj (test code = 2865-4) 0.5 0.0-0.4 [facility] HospitalAlpha-2-Ejbbqyybz4269-67-67 19:59:00* Test Item Value Reference Range Interpretation Comments Obmqz-9-Nogfknuxg (test code = 2868-8) 1.0 0.4-1.0 [facility] HospitalBeta Gamma Jnfnffei6778-04-94 19:59:00* Test Item Value Reference Range Interpretation Comments Beta Gamma Globulin (test code = 2871-2) 1.3 0.7-1.3 [facility] HospitalGamma Hkayzditm7338-03-86 19:59:00* Test Item Value Reference Range Interpretation Comments Gamma Globulins (test code = 2874-6) 1.7 0.4-1.8 [facility] HospitalTotal Protein (PEP)2019-08-16 19:59:00* Test Item Value Reference Range Interpretation Comments Total Protein (PEP) (test code = 2885-2) 6.1 6.0-8.5 [facility] HospitalGlobulin2019-10-01 19:59:00* Test Item Value Reference Range Interpretation Comments Globulin (test code = 24538-1) 4.5 2.2-3.9 H [facility] HospitalKappa Light Chain Vwxfooeo2665-47-80 19:59:00* Test Item Value Reference Range Interpretation Comments Temelec Light Chain Analysis (test code = 14858-1) 192.9 3.3-1 9.4 H [facility] HospitalLambda Light Chain Krmhooqd2884-47-31 19:59:00* Test Item Value Reference Range Interpretation Comments Lambda Light Chain Analysis (test code = 13188-2) 158.1 5.7- 26.3 H [facility] HospitalTotl Temelec/Lambda Light Chain Ratio 2019-08-16 19:59:00* Test Item Value Reference Range Interpretation Comments Totl Temelec/Lambda Light Chain Ratio (test code = 01054-0) 1.22 0.26-1.65 Performed at: - [facility] [address] [id number] Director: Alan Charles MD, Phone: [phone] at: DA - [facility] [address] [place] [id number] Director: ЕЛЕНА Larios MD, Phone: [phone] Memorial HospitalProtein Electrophoresis S-Sdxfb0586-99Bwkbq2602-21-78 19:59:00* Test Item Value Reference Range Interpretation Comments Protein Electrophoresis M-Nima (test code = 91335-2) Not Observ ed Not Observed [facility] HospitalAlbumin/Globulin Sujsp5630-55-66 19:59:00 * Test Item Value Reference Range Interpretation Comments Albumin/Globulin Ratio (test code = 1759-0) 0.4 0.7-1.7 L [facility] HospitalProtein Electrophoresis Tgra9939-41-87 19:59:00* Test Item Value Reference Range Interpretation Comments Protein Electrophoresis Note (test code = Protein Electropho resis Note) Comment . Protein electrophoresis scan will follow via computer,mail, or rubber tile floor layer delivery. [facility] HospitalAlbumin (PEP)2019-08-16 19:59:00* Test Item Value Reference Range Interpretation Comments Albumin (PEP) (test code = Albumin (PEP)) 1.6 2.9-4.4 L [facility] HospitalAlpha-1-Rzivtogiy2894-74-18 19:59:00* Test Item Value Reference Range Interpretation Comments Bvryd-2-Xzzwnxykw (test code = 2865-4) 0.5 0.0-0.4 H [facility] HospitalAlpha-2-Pdaxfanaf9652-28-79 19:59:00* Test Item Value Reference Range Interpretation Comments Suaxi-5-Gnlitydxa (test code = 2868-8) 1.0 0.4-1.0 [facility] HospitalBeta Gamma Ghhqqvzj7408-10-16 19:59:00* Test Item Value Reference Range Interpretation Comments Beta Gamma Globulin (test code = 2871-2) 1.3 0.7-1.3 [facility] HospitalGamma Yobtbwtxo2471-48-92 19:59:00* Test Item Value Reference Range Interpretation Comments Gamma Globulins (test code = 2874-6) 1.7 0.4-1.8 [facility] HospitalTotal Protein (PEP)2019-08-16 19:59:00* Test Item Value Reference Range Interpretation Comments Total Protein (PEP) (test code = 2885-2) 6.1 6.0-8.5 [facility] HospitalGlobulin2019-10-01 19:59:00* Test Item Value Reference Range Interpretation Comments Globulin (test code = 03536-6) 4.5 2.2-3.9 [facility] HospitalKappa Light Chain Xrpxozfq6406-43-75 19:59:00* Test Item Value Reference Range Interpretation Comments Temelec Light Chain Analysis (test code = 33006-4) 192.9 3.3-1 9.4 H [facility] HospitalLambda Light Chain Ntjtqgcm8246-57-79 19:59:00* Test Item Value Reference Range Interpretation Comments Lambda Light Chain Analysis (test code = 14873-2) 158.1 5.7- 26.3 H [facility] HospitalTotl Temelec/Lambda Light Chain Ratio 2019-08-16 19:59:00* Test Item Value Reference Range Interpretation Comments Totl Temelec/Lambda Light Chain Ratio (test code = 88492-8) 1.22 0.26-1.65 Performed at: - [facility] [address] [id number] Director: Alan Charles MD, Phone: [phone] at: DA - [facility] [place] [address], [place], [place] [id number] Director: ЕЛЕНА Larios MD, Phone: [phone] Memorial HospitalProtein Electrophoresis A-Jywnr2339-02Gzyyr5549-21-96 19:59:00* Test Item Value Reference Range Interpretation Comments Protein Electrophoresis M-Nima (test code = 31097-7) Not Observ ed Not Observed [facility] HospitalAlbumin/Globulin Rtdxv3863-11-13 19:59:00 * Test Item Value Reference Range Interpretation Comments Albumin/Globulin Ratio (test code = 1759-0) 0.4 0.7-1.7 L [facility] HospitalProtein Electrophoresis Zjjl0446-72-08 19:59:00* Test Item Value Reference Range Interpretation Comments Protein Electrophoresis Note (test code = Protein Electropho resis Note) Comment . Protein electrophoresis scan will follow via computer,mail, or rubber tile floor layer delivery. [facility] HospitalParathyroid Obvlvsh2938-26-16 05:06:00* Test Item Value Reference Range Interpretation Comments Parathyroid Hormone (test code = 2731-8) 36 15-65 [facility] HospitalCalcium (Send out)2019-08-16 05:06:00* Test Item Value Reference Range Interpretation Comments Calcium (Send out) (test code = 95201-4) 7.7 8.6-10.2 L [facility] HospitalParathyroid Hormone Interpretation 2019-08-16 05:06:00* Test Item Value Reference Range Interpretation Comments Parathyroid Hormone Interpretation (test code = Parathyroid Hormone Interpretation) Comment . Interpretation Intact PTH Calcium (pg/mL) (mg/dL)Normal 15 - 65 8.6 - 10.2Pr imary Hyperparathyroidism >65 >10.2Secondary Hyperparathyroidism >65 <10.2Non-Parathyroid Hypercalcemia <65 >10.2Hypoparathyroidism <15 < 8.6Non- Parathyroid Hypocalcemia 15 - 65 < 8.6Performed at: [facility] [id number] Director: Alan Charles MD, Phone: [phone] at: [facility] [id number] Director: Barbra Brink MD, Phone: [phone] Memorial HospitalParathyroid Rnokkun9735-46-01 05:06:00* Test Item Value Reference Range Interpretation Comments Parathyroid Hormone (test code = 2731-8) 36 15-65 [facility] HospitalCalcium (Send out)2019-08-16 05:06:00* Test Item Value Reference Range Interpretation Comments Calcium (Send out) (test code = 65288-2) 7.7 8.6-10.2 L [facility] HospitalParathyroid Hormone Interpretation 2019-08-16 05:06:00* Test Item Value Reference Range Interpretation Comments Parathyroid Hormone Interpretation (test code = Parathyroid Hormone Interpretation) Comment . Interpretation Intact PTH Calcium (pg/mL) (mg/dL)Normal 15 - 65 8.6 - 10.2Pr imary Hyperparathyroidism >65 >10.2Secondary Hyperparathyroidism >65 <10.2Non-Parathyroid Hypercalcemia <65 >10.2Hypoparathyroidism <15 < 8.6Non- Parathyroid Hypocalcemia 15 - 65 < 8.6Performed at: [facility] [id number] Director: Alan Charles MD, Phone: [phone] at: [facility] [address] [place], [place] [id number] Director: Barbra Brink MD, Phone: [phone] [facility] HospitalBlood Vylrobb3518-99-13 04:20:00* Test Item Value Reference Range Interpretation Comments Blood Culture (test code = 69056615) NO GROWTH AFTER 5 DAYS, FINAL REPORT [facility] HospitalCHEST SINGLE (PORTABLE)2019-08-15 23:49:00 [facility] [address] [place] [address] Patient Name: Becky ORTIZ JR MR #: [id number] : 1940 Age/Sex: 79/M Req #: [id number] Adm Physician: BARBARA FERNÁNDEZ MD Ordered by: FANNY UP MD Report #: [id number] Location: ICU Room/Bed: [place] [address] Procedure: [id number] DX/C HEST SINGLE (PORTABLE) Exam Date: 08/15/19 Exam Time : 2135 REPORT STATUS: Signed EXA MINATION: CHEST SINGLE (PORTABLE) INDICATION: Central line placement COMPARISON: Abdominal CT 08/14/2019, Chest CT 08/11/2019 FINDINGS: AP view TUBES and LINES: Right IJ central venous catheter, tip in the low superior vena cava.. LUNGS: Low lung volumes. Bilateral central lower lobe airspace opacities. Prominent central pulmonary vasculature. PLEURA: No pleural effusion or pneumothorax. HEART AND MEDIASTINUM: The c ardiomediastinal silhouette is enlarged. BONES AND SOFT TISSUES: No acute osseous lesion. Soft tissues are unremarkable. UPPER ABDOMEN: No free a ir under the diaphragm. IMPRESSION: Bilateral central lower lobe airspace opacities likely reflect atelectasis as seen on abdominal CT 9. In the setting of cardiomegaly and pulmonary vascular congestion, edema is also consideration. Signed by: Joseph Keen DO on 08/15/2019 11:54 PM Dictated By: JOSEPH KEEN DO 53 Transcribed By: VIKA on 08/15/192353 COPY TO: FANNY UP MD US RENAL RETROPERITONEAL [id number] 17:18:00 [place] [address] Patient Name: Becky ORTIZ JR MR #: [id number] : 1940 Age/Sex: 79/M Req #: [id number] Adm Physician: BARBARA FERNÁNDEZ MD Ordered by: MACHO HAMILTON MD Report #: [id number] Location: ICU Room/Bed: [place] [address] Procedure: [id number] US/US MILLIE AL RETROPERITONEAL COMP Exam Date: 08/15/19 Exam Regulo e: 1641 REPORT STATUS: Signed EX AM: Renal Ultrasound INDICATION: Acute kidney injury COMPARISON: CT abdom en and pelvis of 08/14/2019 TECHNIQUE: Transverse and longitudinal images of t he kidneys and bladder were obtained. FINDINGS: Right Kidney: Length: 12.8 cm Appearance: Normal echogenicity. Collecting system: No hydronephrosis Stones: None Cyst/Mass: Lateral midpole exophytic anechoic s imple cyst measuring 3.3 cm. Additional lateral simple cyst measures 2.3 cm. Left Kidney: Length: 11.8 cm Appearance: Normal echogenicity. Colle cting system: No hydronephrosis Stones: None Cyst/Mass: None Bladder: Not visualized due to extensive overlying bowel gas. IMPRESSION: No millie al calculi or hydronephrosis. Right renal simple cysts as above. Machelle d by: Brittany Patel MD on 08/15/2019 5:21 PM Dictated By: BRITTANY PATEL MD Phoebe ctronically Signed By: BRITTANY PATEL MD on 08/15/191720 Transcribed By: VIKA gramajo 08/15/191720 COPY TO: MACHO HAMILTON MD Toxic Granulation 2019-08-15 07:07:00* Test Item Value Reference Range Interpretation Comments Toxic Granulation (test code = 803-7) MODERATE [facility] HospitalDohle Cbgpor9900-66-53 07:07:00* Test Item Value Reference Range Interpretation Comments Dohle Bodies (test code = 7792-5) FEW [facility] HospitalToxic Krxnzzarnhr3809-65-90 07:07:00* Test Item Value Reference Range Interpretation Comments Toxic Granulation (test code = 803-7) MODERATE [facility] HospitalDohle Ouakck4800-85-73 07:07:00* Test Item Value Reference Range Interpretation Comments Dohle Bodies (test code = 7792-5) FEW [facility] HospitalCT LEFT LOWER EXTREMITY OU8798-08-68 18:22:00 [facility] [address] [place] [address] Patient Name: Becky ORTIZ JR MR #: [id number] : 1940 Age/Sex: 79/M Req #: [id number] Adm Physician: BARBARA FERNÁNDEZ MD Ordered by: JUAN SMITH MD Report #: [id number] Location: MED/SURG2 Room/Bed: [facility] Procedure: [id number] CT/CT LEFT LOWER EXTREMITY WO Exam Date: 08/14/19 Exam Regulo e: 1745 REPORT STATUS: Signed CT scan of the LEFT THIGH/FEMUR, WITHOUT injected contrast. TECHNIQUE: Sta melyard departmental protocols were used. Sagittal and coronal reformatted imag es were obtained. Dose modulation, iterative reconstruction, and/or weight ba sed adjustment of the mA/kV was utilized to reduce the radiation dose to as lo w as reasonably achievable. DLP = 637.56 mGy-cm HISTORY: Infection, sw elling, rule out abscess COMPARISON: None. FINDINGS: Soft tissue att enuation partially limits sensitivity of the exam. Absence of intravenous cont rast limits evaluation of the soft tissues. Bones: No acute displaced f racture. No aggressive osseous lesion. No osseous erosion. Joints: Multifocal degenerative changes, most notably tricompartmental degenerative ch anges of the knee. Soft Tissues: * Prominent soft tissue emphysema within the superficial adipose tissue of the anterior and anterolateral thigh extending to the lateral superficial adipose tissue overlying the gluteal igor on. * Prominent regional soft tissue fat stranding. * Prominent lymphadeno jean claude, measuring up to 1.4 cm in short axis, likely reactive to the evolving i nfectious process. * Incidental large left and small right hydroceles. * D iffuse scattered atherosclerotic vascular calcifications. IMPRESSION: 1. Extensive superficial adipose tissue soft tissue emphysema, but no discrete drainable fluid collection/abscess. 2. Inguinal lymphadenopathy, likely re active. 3. Large left and small right hydroceles. Signed by: Bin LiOHill, M.M.M. on 08/14/2019 6:30 PM Dictated By: ANEESH MOORE DO 29 Transcribed B y: VIKA on 08/14/191829 COPY TO: JUAN SMITH MD CT ABDOMEN/PELVIS QN6537-60-23 18:01:00 [place] [address] Patient Name: Becky ORTIZ JR MR #: [id number] : 1940 Age/Sex: 79/M Req #: [id number] Adm Physician: BARBARA FERNÁNDEZ MD Ordered by: JUAN SMITH MD Report #: [id number] Location: MED/SURG2 Room/Bed: 213-1 Procedure: [id number] CT/CT A BDOMEN/PELVIS WO Exam Date: 08/14/19 Exam Time: 1745 REPORT STATUS: Signed EXAM: CT of the abdomen and pelvis WITHOUT contrast HISTORY: Infection, swelling, left lies/pelvis, rule out abscess COMPARISON: None available. TECHNIQUE : The abdomen and pelvis were scanned utilizing a multidetector helical scann er. Coronal and sagittal reformats are available. PROTOCOL: Routine IV CONTRAST: None, which limits sensitivity and specifici ty of evaluation of the soft tissues and vascular structures. OR AL CONTRAST: None, which limits sensitivity and specificity of evaluation of the bowel. RADIATION DOSE: Total DLP: 1465.19 mGy*cm Estimated effective dose: (DLP x 0.015 x size factor) Dose modula tion, iterative reconstruction, and/or weight based adjustment of the mA/kV wa s utilized to reduce the radiation dose to as low as reasonably achievable. COMPLICATIONS: None FINDINGS: Soft tissue attenuation partial ly limits sensitivity of the exam. Motion artifact partially limits sensitivit y and specificity of the exam. LOWER THORAX: Mild bilateral lower lobe a telectasis. HEPATOBILIARY: No mass. No biliary dilation. Possible 3 .6 x 2.4 cm subtle peripherally calcified gallstone near the neck. SPLEEN: No splenomegaly. PANCREAS: Diffuse parenchymal atrophy. Limited evaluation, e specially of the head and adjacent decompressed duodenum. ADRENALS: No adre nal nodule. KIDNEYS/URETERS: No hydronephrosis, stones, or solid mass lesio n identified. Bilateral hypodensities, the majority clearly fluid density, me asuring up to 2.7 and 2.6 cm on the right. PELVIC ORGANS/BLADDER: The uri nary bladder is predominantly decompressed, which somewhat limits the evaluati on. Mildly enlarged prostate with central coarse calcifications. PERITONE UM / RETROPERITONEUM: No free air or fluid. GI TRACT: A small sliding hiatal h ernia. Radiopaque contrast within the stomach. Limited evaluation of the predo minantly decompressed duodenum. Radiopaque contrast within the proximal small bowel. Somewhat patulous appearance of the colon. The presumed partially visu alized appendix appears unremarkable. LYMPH NODES: No pathologically enla rged lymph nodes. VESSELS: Scattered atherosclerotic vascular calcifications, including the coronary arteries. BONES and JOINTS: Chronic healed left-side d rib fracture deformities. SOFT TISSUES: * Prominent soft tissue emphy sema within the superficial soft tissues of the partially visualized anterolat eral left proximal thigh and lateral gluteal soft tissues. * Prominent gyne comastia. IMPRESSION: 1. Prominent soft tissue emphysema within the sup erficial soft tissues of the partially visualized anterolateral left proximal thigh and lateral gluteal soft tissues. 2. Probable cholelithiasis. 3. M ultiple bilateral renal cysts, recommend correlation with a nonemergent follow -up renal ultrasound to confirm all of the lesions are are simple cysts. 4. S mall sliding hiatal hernia. 5. Coronary atherosclerosis. 6. Gynecomastia. Signed by: Bin LiO., M.M.M. on 08/14/2019 6:18 PM Dictat ed By: ANEESH RIOS DO 17 Transcribed By: VIKA on 08/14/191817 COPY TO: JUAN SMITH MD Qjviyqrwewwd3413-03-04 07:25:00* Test Item Value Reference Range Interpretation Comments Macrocytosis (test code = 738-5) SLIGHT [facility]2019-[facility]28 07:25:00* Test Item Value Reference Range Interpretation Comments Macrocytosis (test code = 738-5) SLIGHT [facility] Random Total Dxdydxu9533-80-03 18:54:00* Test Item Value Reference Range Interpretation Comments Urine Random Total Protein (test code = 2888-6) 29.3 1-14 [facility] Iprsefemsl6925-24-97 18:54:00* Test Item Value Reference Range Interpretation Comments Urine Creatinine (test code = 2161-8) 349.07 63-166 [facility] Protein/Creatinine Lpobe4739-16-22 18:54:00* Test Item Value Reference Range Interpretation Comments Urine Protein/Creatinine Ratio (test code = 81227-6) 0.00 [facility] Total Pmyyxfa8644-11-81 18:54:00* Test Item Value Reference Range Interpretation Comments Urine Random Total Protein (test code = 2888-6) 29.3 1-14 [facility] Spwgsksmxr4174-66-98 18:54:00* Test Item Value Reference Range Interpretation Comments Urine Creatinine (test code = 2161-8) 349.07 63-166 [facility] Protein/Creatinine Cbwfv3167-45-45 18:54:00* Test Item Value Reference Range Interpretation Comments Urine Protein/Creatinine Ratio (test code = 66801-7) 0.00 [facility] [id number] 18:49:00* Test Item Value Reference Range Interpretation Comments Urine WBC (test code = 5821-4) 6-10 0-5 [facility] SXA9219-16-52 18:49:00* Test Item Value Reference Range Interpretation Comments Urine RBC (test code = 60061-8) NONE 0-5 [facility] Futtpxda7910-86-01 18:49:00* Test Item Value Reference Range Interpretation Comments Urine Bacteria (test code = 12313-0) MODERATE NONE [facility] Epithelial Tbfml8193-04-50 18:49:00 * Test Item Value Reference Range Interpretation Comments Urine Epithelial Cells (test code = 17030-1) RARE NONE [facility] [id number] 18:49:00* Test Item Value Reference Range Interpretation Comments Urine WBC (test code = 5821-4) 6-10 0-5 [facility] [id number] 18:49:00* Test Item Value Reference Range Interpretation Comments Urine RBC (test code = 65287-9) NONE 0-5 [facility] Imxlwlrf9098-01-36 18:49:00* Test Item Value Reference Range Interpretation Comments Urine Bacteria (test code = 49254-0) MODERATE NONE [facility] Epithelial Anngl8919-93-55 18:49:00 * Test Item Value Reference Range Interpretation Comments Urine Epithelial Cells (test code = 87499-3) RARE NONE [facility] Twxng0043-74-81 18:35:00* Test Item Value Reference Range Interpretation Comments Urine Color (test code = 5778-6) YELLOW YELLOW [facility] Bmhoetj6514-22-41 18:35:00* Test Item Value Reference Range Interpretation Comments Urine Clarity (test code = 60246-6) SL CLOUDY CLEAR H [facility] Specific Rmzlcoi3782-63-55 18:35:00 * Test Item Value Reference Range Interpretation Comments Urine Specific [place] (test code = 5811-5) >=1.030 1.010-1.02 5 [facility] qB5610-68-69 18:35:00* Test Item Value Reference Range Interpretation Comments Urine pH (test code = 29454-0) 5 5-7 [facility] Leukocyte Xsdathje4848-84-52 18:35:00* Test Item Value Reference Range Interpretation Comments Urine Leukocyte Esterase (test code = 59580-6) TRACE NEGATIV E H [facility] Lqhpphc5413-78-25 18:35:00* Test Item Value Reference Range Interpretation Comments Urine Nitrite (test code = 77527-4) NEGATIVE NEGATIVE [facility] Wyxpawf8108-96-99 18:35:00* Test Item Value Reference Range Interpretation Comments Urine Protein (test code = 25839-9) TRACE NEGATIVE H [facility] Glucose (UA)2019-08-12 18:35:00* Test Item Value Reference Range Interpretation Comments Urine Glucose (UA) (test code = 37729-2) NEGATIVE NEGATIVE [facility] Apxqlkg9736-33-42 18:35:00* Test Item Value Reference Range Interpretation Comments Urine Ketones (test code = 92886-6) NEGATIVE NEGATIVE [facility] Bqahduubxoex1827-43-35 18:35:00* Test Item Value Reference Range Interpretation Comments Urine Urobilinogen (test code = 07138-9) 1 0.2-1 [facility] Novikeljx2918-87-91 18:35:00* Test Item Value Reference Range Interpretation Comments Urine Bilirubin (test code = 1977-8) MODERATE NEGATIVE [facility] Eeumd7483-01-63 18:35:00* Test Item Value Reference Range Interpretation Comments Urine Blood (test code = 58545-5) NEGATIVE NEGATIVE [facility] Vpdlj9455-48-34 18:35:00* Test Item Value Reference Range Interpretation Comments Urine Color (test code = 5778-6) YELLOW YELLOW [facility] Ucpwpdf1841-60-78 18:35:00* Test Item Value Reference Range Interpretation Comments Urine Clarity (test code = 42119-4) SL CLOUDY CLEAR H [facility] Specific Eqekhvd6122-75-91 18:35:00 * Test Item Value Reference Range Interpretation Comments Urine Specific [place] (test code = 5811-5) >=1.030 1.010-1.02 5 [facility] oW5561-65-45 18:35:00* Test Item Value Reference Range Interpretation Comments Urine pH (test code = 85329-8) 5 5-7 [facility] Leukocyte Qsiaeaha1817-34-09 18:35:00* Test Item Value Reference Range Interpretation Comments Urine Leukocyte Esterase (test code = 56618-3) TRACE NEGATIV E H [facility] Zfmvzxw9918-03-60 18:35:00* Test Item Value Reference Range Interpretation Comments Urine Nitrite (test code = 32174-3) NEGATIVE NEGATIVE [facility] Xcbrstd0318-49-94 18:35:00* Test Item Value Reference Range Interpretation Comments Urine Protein (test code = 43407-5) TRACE NEGATIVE [facility] Glucose (UA)2019-08-12 18:35:00* Test Item Value Reference Range Interpretation Comments Urine Glucose (UA) (test code = 11805-4) NEGATIVE NEGATIVE [facility] Qzzlxaa9534-83-39 18:35:00* Test Item Value Reference Range Interpretation Comments Urine Ketones (test code = 10386-9) NEGATIVE NEGATIVE [facility] Fyvarkocqxoz3241-49-51 18:35:00* Test Item Value Reference Range Interpretation Comments Urine Urobilinogen (test code = 38245-9) 1 0.2-1 [facility] Kgbclqlul3548-03-54 18:35:00* Test Item Value Reference Range Interpretation Comments Urine Bilirubin (test code = 1977-8) MODERATE NEGATIVE [facility] Sgszc1856-40-28 18:35:00* Test Item Value Reference Range Interpretation Comments Urine Blood (test code = 81256-2) NEGATIVE NEGATIVE [facility] HospitalHEPTOBILIARY W EMSQT9508-97-43 18:23:00 [place] [address] Patient Name: Becky ORTIZ JR MR #: [id number] : 1940 Age/Sex: 79/M Req #: [id number] [facility] Physician: BARBARA FERNÁNDEZ MD Ordered by: BARBARA FERNÁNDEZ MD Report #: [id number] Location: ICU Room/Bed: [place] [address] Procedure: [id number] NM/HEPTOB ILIARY W PHARM Exam Date: 08/12/19 Exam Time: 1355 REPORT STATUS: Signed HEPATOBI LIARY SCAN INDICATION: 79 M with abdominal pain and cholelithiasis and hepa tomegaly Report: Following the administration of 6.6 mCi of Tc-99m mebrofen in, dynamic images of the abdomen in the anterior projection were obtained thr ough 43 minutes. THE PATIENT THEN INSISTED THAT THE STUDY BE TERMINATED. He simply wasn't able to tolerate lying flat on the imaging table. Perfusion of the liver is normal. Extraction of tracer from the blood pool by the liver parenchyma is normal. Tracer appears within the biliary tract by 14 minutes. Tracer is seen in the small bowel by 23 minutes post injection of the radio tracer. The gallbladder does not fill during the initial 43-minute dynamic se quence. Impression: Incomplete study. The patient insisted that the study be stopped. It was curtailed at 43 minutes. Tracer was seen in the sm all bowel by 23 minutes but no tracer appeared in the gallbladder during the 4 3 minutes of imaging. Signed by: Dr. Malaika Arevalo M.D. on 08/12/2019 6:31 PM Dictated By: MALAIKA AREVALO MD 30 Transcribed By: VIKA on 08/12/191830 COPY TO: Becky FERNÁNDEZ MD Creatine Kinase [id number] 23:19:00* Test Item Value Reference Range Interpretation Comments Creatine Kinase MB (test code = 29494-7) 2.90 0-5.0 [facility] [id number] 23:19:00* Test Item Value Reference Range Interpretation Comments Troponin I (test code = YGT2981) 0.025 0-0.300 [facility] EK7657-41-16 23:19:00* Test Item Value Reference Range Interpretation Comments Creatine Kinase MB (test code = 09202-2) 2.90 0-5.0 [facility] Hospital[facility]roponin [id number] 23:19:00* Test Item Value Reference Range Interpretation Comments Troponin I (test code = CMK3760) 0.025 0-0.300 [facility] Sdgnlt3857-50-04 23:00:00* Test Item Value Reference Range Interpretation Comments Creatine Kinase (test code = 2157-6) 367 30-200 [facility] Wxllbp6855-32-19 23:00:00* Test Item Value Reference Range Interpretation Comments Creatine Kinase (test code = 2157-6) 367 30-200 H [facility] ONPWKFPQTLR3437-89-80 15:07:00 [facility] [address] [place] [address] Patient Name: Becky ORTIZ JR MR #: [id number] : 1940 Age/Sex: 79/M Req #: [id number] Adm Physician: BARBARA FERNÁNDEZ MD Ordered by: SHARIF DIEGO MD Report #: [id number] Location: ICU Room/Bed: ICU [facility] Procedure: [id number] US/US GA LLBLADDER Exam Date: 08/11/19 Exam Time: 1407 REPORT STATUS: Signed EXAM: Gallbladder Ultrasound INDICATION: Shortness of breath. Fever abnormal ct ARSEN RISON: CT scan 08/11/2019 TECHNIQUE: Transverse and longitudinal images of the gallbladder were obtained. FINDINGS: Liver: Normal in [facility] without focal mass. The liver is enlarged measuring 19.1 cm in length Gallbladder: Stones/Sludge: Multiple echogenic foci with posterior acoustic shadowing in the lumen of the gallbladder consistent with gallstones Wall: 0 .2 cm Appearance: No wall thickening, pericholecystic fluid or hydrops. So nographic Dawson's Sign: Negative Bile Ducts: Intrahepatic Ducts: No dila tation Extrahepatic Ducts: Common bile duct measures 0.4 cm, no dilatation Free Fluid: No ascites or pleural effusion Main portal vein and normal in appearance measuring 1.0 cm with hepatopedal blood flow. 2.1 x 2.2 x 2 .7 cm simple appearing cyst in the superior right kidney. 3.6 x 2.6 x 3.2 cm s imple appearing cyst in the superior lateral right kidney. Right kidney otherw ise normal in appearance measuring 11.7 cm in length. Pancreas and abdomina l aorta are not well seen due to overlying bowel gas. Inferior vena cava gr ossly unremarkable. IMPRESSION: Gallstones in the lumen of the gallbladde r. No ductal dilatation. Simple appearing right renal cysts. Hepatomeg giana. LV hyper to kid LV hypo to spleen [place] hyper to LV Liver Male < 16 cm Female < 15 cm Kidneys: NL 9-12 cm, <13 cm Spleen < 12 cm CBD < 7 mm CHD < 4-5 mm GB Wall < 3 mm Hydrops > 10 x 5 cm PV < 13 mm Panc. duct 3-2-1 Signed by: Dr. Donna Millard M.D. on 08/11/2019 3:10 PM Dictated By: DONNA MILLARD MD, MD 09 Transcribed By: VIKA on 08/11/191509 COPY TO: SHARIF DIEGO MD CT CHEST [id number] 13:33:00 [place] [address] Patient Name: Becky ORTIZ JR MR #: [id number] : 1940 Age/Sex: 79/M Req #: [id number] Adm Physician: BARBARA FERNÁNDEZ MD Ordered by: BARBARA FERNÁNDEZ MD Report #: [id number] Location: ICU Room/Bed: [place] [address] Procedure: [id number] CT/CT [facility] Exam Date: 08/11/19 Exam Time: 1050 REPORT STATUS: Signed EXAM: CT Chest WITHO UT intravenous contrast 08/11/2019 10:23 AM INDICATION: Shortness of breath COMPARISON: Chest radiograph of earlier the same day. TECHNIQUE: Chest was s canned utilizing a multidetector helical scanner from the lung apex through th e level of the adrenal glands without administration of IV contrast. Coronal a nd sagittal reformations were obtained. Routine protocol was performed. I V CONTRAST: None RADIATION DOSE: Total DLP: 909.2 mGy*cm. Dose modulation, ite rative reconstruction, and/or weight based adjustment of the mA/kV was utilize d to reduce the radiation dose to as low as reasonably achievable. COMPLICA TIONS: None FINDINGS: LINES/ TUBES: None. LUNGS AND AIRWAYS: The central airways are patent. No focal consolidation. Mild bibasilar dependent subsegmental atelectasis. No suspicious lung nodule. PLEURA: The pleural s paces are clear. HEART AND MEDIASTINUM: The thyroid gland is normal. No me diastinal, hilar or axillary lymphadenopathy. Multichamber cardiomegaly. Diff use atherosclerotic calcifications of the coronary arteries and aorta and grea t vessels.. No pericardial effusion. Small sliding hiatal hernia. UPPER ABDOMEN: Limited noncontrast views of the upper abdomen. No focal liver lesio n. Some hyperdense material in the partially visualized gallbladder may repres ent sludge or gallstones. No focal abnormality of the partially visualized spl een, pancreas, or adrenals. BONES: Healed fractures of multiple anterolater al left ribs. No acute osseous injury. No suspicious lytic or blastic lesions. SOFT TISSUES: Unremarkable. IMPRESSION: No focal pneumonia. M ultichamber cardiomegaly and diffuse atherosclerotic arterial calcifications i ncluding of the coronary arteries. Small sliding hiatal hernia. Hyperd ense material in the partially visualized gallbladder may represent sludge or gallstones. Signed by: Brittany Patel MD on 08/11/2019 1:43 PM Dictat ed By: BRITTANY PATEL MD 1343 Transcribed By: VIKA on 08/11/19 1343 COPY TO: BARBARA FERNÁNDEZ MD Lactic Acid Xgwen4272-70-83 08:04:00* Test Item Value Reference Range Interpretation Comments Lactic Acid Level (test code = Lactic Acid Level) 14.2 4.5- 19.8 [facility] Rjqgc8018-14-19 08:04:00* Test Item Value Reference Range Interpretation Comments Lactic Acid Level (test code = Lactic Acid Level) 14.2 4.5- 19.8 [facility] Natriuretic Qsqhhir5034-08-50 05:41:00* Test Item Value Reference Range Interpretation Comments B-Type Natriuretic Peptide (test code = 22517-9) 184.2 0-100 H [facility] Natriuretic Gzzyypw4680-59-94 05:41:00* Test Item Value Reference Range Interpretation Comments B-Type Natriuretic Peptide (test code = 52626-6) 184.2 0-100 [facility] HospitalInfluenza Virus Types A,B Antigen 2019-08-11 05:35:00* Test Item Value Reference Range Interpretation Comments Influenza Virus Types A,B Antigen (test code = 31722-8) NEGATIVE NEGATIVE [facility] Hospital[facility]flu[facility] Virus Types A,B Antigen 2019-08-11 05:35:00* Test Item Value Reference Range Interpretation Comments Influenza Virus Types A,B Antigen (test code = 86441-0) NEGATIVE NEGATIVE [facility] HospitalCHES SINGLE (PORTABLE)2019-08-11 05:31:00 [place] [address] Patient Name: Becky ORTIZ JR Kate MR #: [id number] : 1940 Age/Sex: 79/M Req #: [id number] Adm Physician: Ordered by: YOLY DE LA FUENTE MD Report #: [id number] Location: ER Room/Bed: Procedure: [id number] DX/C HEST SINGLE (PORTABLE) Exam Date: 08/11/19 Exam Time : 509 REPORT STATUS: Signed EXA MINATION: CHEST SINGLE (PORTABLE) INDICATION: cough fever [id number] COMPARISON: None FINDINGS: AP view TUB ES and LINES: None. LUNGS: Limited by body habitus and low lung volumes. Central peribronchial cuffing. Left basilar haziness. PLEURA: No signif icant pleural effusion or pneumothorax. HEART AND MEDIASTINUM: The cardiom ediastinal silhouette is enlarged on this AP view. BONES AND SOFT TIS SUES: No acute osseous lesion. Soft tissues are unremarkable. UPPER ABD OMEN: No free air under the diaphragm. IMPRESSION: Limited as above. Central peribronchial cuffing. Underlying pneumonia cannot be excluded. Left basilar haziness, could represent atelectasis and/or pneumonia in the [facility] clinical context. Signed by: Dr. Yenny Muñoz MD on 08/11/2019 5: 47 AM Dictated By: YENNY MUÑOZ MD 6 Transcribed By: VIKA on 08/11/19546 COPY TO: YOLY DE LA FUENTE MD U/S, TESTICULAR (SCROTUM)2018-03-24 06:35:00Reason for exam:->r/o abscessShould this be performed at the bedside?->NoAddendum BeginsREPORT STATUS:A The following addendum is being made to expand on the patient's clinical history, and does not substantially change the findings or recommendations of the original report. Additional his tory: Scrotal swelling. Status post fall and trauma two weeks prior. Signed: Gracie Azul MDReport Verified Date/Time: 03/24/2018 06:35:05 Reading Location: [address] Transitional Reading RoomAddendum EndsFINAL REPORT PATIENT ID: [id number] Exam: Testicular ultrasound Clinical History: r/o abscess Technique: T esticular ultrasound was performed. Color and spectral Doppler ultrasound was al so performed. Findings: RIGHT:The right testicle is normal in size and echogenic ity measuring 3.7 x 1.8 x 2.5 cm. There are multiple tiny echogenic foci within the testicle in keeping with microlithiasis. The right epididymis is normal in s ize and echogenicity. The right epididymal head measures up to 1.0 cm. There is a 4 mm epididymal head cyst or spermatocele. Color and spectral Doppler evaluat ion of the right testicle and epididymis demonstrates normal vascular flow witho ut hyperemia. There is a large hydrocele. There is no varicocele. LEFT:The left testicle is normal in size and echogenicity measuring 4.5 x 3.0 x 2.8 cm. There are a few scattered tiny echogenic foci within the testicle in keeping with micr olithiasis. The left epididymis is normal in size and echogenicity. The left epi didymal head measures up to 1.4 cm. Color and spectral Doppler evaluation of the left testicle and epididymis demonstrates normal vascular flow without hyperemi a. There is a large hydrocele. There is no varicocele. Impression: Large bilater al hydroceles.No abscess.4 mm right epididymal head cyst or spermatocele.Testicu lar microlithiasis. Urologic follow-up is recommended. Signed: Gracie Gonzalez MDR eport Verified Date/Time: 03/10/2018 04:37:32 Reading Location: [facility] C013T [facility] Reading Room UE [id number] 19:05:00Surgical Pathology Report Case: [id number] Authorizing Provider: Rosario Bennett MD Collected: 03/15/2018 1715 Ordering Location: [address] Received: 03/16/2018 0801 SERVICE Pathologist: Stacie Lr MD Specimen: Biopsy, Gastric, gastric bx A. 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 Signing Pathologist Direct Phone Line: [phone] signed by Stacie Lr MD on 03/16/2018 at 7:05 [id number] mass Gastric biopsy The specimen is received in a formali n-filled container labeled with the patient's information and labeled "gastric b iopsy" and consists of two fragments of albert tissue measuring 0.1 and 0.2 cm, sub mitted in A1. CG/ew A. Warthin-starry stain is examined.POCT-GLUCOSE METER 2018-03-16 11:58:00* Test Item Value Reference Range Interpretation Comments POC-GLUCOSE METER (BEAKER) (test code = 1538) 184 mg/dL 70-110 H TESTED AT [facility] [address] [facility] [address] JHWPMIQKBP6989-97-02 04:40:00* Test Item Value Reference Range Interpretation Comments PHOSPHORUS (BEAKER) (test code = 604) 4.2 mg/dL 2.3-4.7 [id number] 04:40:00* Test Item Value Reference Range Interpretation Comments MAGNESIUM (BEAKER) (test code = 627) 1.5 mg/dL 1.6-2.6 L BASIC METABOLIC AXKKS4768-12-36 04:40:00* Test Item Value Reference Range Interpretation Comments SODIUM (BEAKER) (test code = 381) 143 meq/L 136-145 POTASSIUM (BEAKER) (test code = 379) 3.8 meq/L 3.5-5.1 CHLORIDE (BEAKER) (test code = 382) 108 meq/L 98-107 H CO2 (BEAKER) (test code = 355) 25 meq/L 22-29 BLOOD UREA NITROGEN (BEAKER) (test code = 354) 10 mg/dL 7-21 CREATININE (BEAKER) (test code = 358) 1.53 mg/dL 0.57-1.25 H GLUCOSE RANDOM (BEAKER) (test code = 652) 133 mg/dL 70-105 H CALCIUM (BEAKER) (test code = 697) 9.1 mg/dL 8.4-10.2 EGFR (BEAKER) (test code = 1092) 53 mL/min/1.73 sq m ESTIMATED GFR IS NOT ACCURATE CREATININE CLEARANCE IN PREDICTING GLOMERULAR FILTRATION RATE. ESTIMATED GFR IS NOT APPLICABLE FOR DIALYSIS PATIENTS. CBC W/PLT COUNT & AUTO HEYIDBLXWFMD2431-33-29 04:24:00* Test Item Value Reference Range Interpretation Comments WHITE BLOOD CELL COUNT (BEAKER) (test code = 775) 8.5 K/ L 3.5- 10.5 RED BLOOD CELL COUNT (BEAKER) (test code = 761) 4.61 M/ L 4.63-6 .08 L HEMOGLOBIN (BEAKER) (test code = 410) 12.5 GM/DL 13.7-17.5 L HEMATOCRIT (BEAKER) (test code = 411) 41.0 % 40.1-51.0 MEAN CORPUSCULAR VOLUME (BEAKER) (test code = 753) 88.9 fL 79. 0-92.2 MEAN CORPUSCULAR HEMOGLOBIN (BEAKER) (test code = 751) 27.1 pg 25.7-32.2 MEAN CORPUSCULAR HEMOGLOBIN CONC (BEAKER) (test code = 752) 30.5 GM/DL 32.3-36.5 L RED CELL DISTRIBUTION WIDTH (BEAKER) (test code = 412) 18.5 % 11.6-14.4 H PLATELET COUNT (BEAKER) (test code = 756) 374 K/CU MM 150-450 MEAN PLATELET VOLUME (BEAKER) (test code = 754) 11.5 fL 9.4-12 .4 NUCLEATED RED BLOOD CELLS (BEAKER) (test code = 413) 0 /100 WBC 0 -0 NEUTROPHILS RELATIVE PERCENT (BEAKER) (test code = 429) 60 % LYMPHOCYTES RELATIVE PERCENT (BEAKER) (test code = 430) 24 % MONOCYTES RELATIVE PERCENT (BEAKER) (test code = 431) 11 % EOSINOPHILS RELATIVE PERCENT (BEAKER) (test code = 432) 5 % BASOPHILS RELATIVE PERCENT (BEAKER) (test code = 437) 1 % NEUTROPHILS ABSOLUTE COUNT (BEAKER) (test code = 670) 5.08 K/ L 1.78-5.38 LYMPHOCYTES ABSOLUTE COUNT (BEAKER) (test code = 414) 2.02 K/ L 1.32-3.57 MONOCYTES ABSOLUTE COUNT (BEAKER) (test code = 415) 0.90 K/ L 0. 30-0.82 H EOSINOPHILS ABSOLUTE COUNT (BEAKER) (test code = 416) 0.38 K/ L 0.04-0.54 BASOPHILS ABSOLUTE COUNT (BEAKER) (test code = 417) 0.06 K/ L 0. 01-0.08 IMMATURE GRANULOCYTES-RELATIVE PERCENT (BEAKER) (test code = 2801) 1 % 0-1 POCT-GLUCOSE [id number] 03:43:00* Test Item Value Reference Range Interpretation Comments POC-GLUCOSE METER (BEAKER) (test code = 1538) 172 mg/dL 70-110 H TESTED AT [place] [id number] [facility] [address] POCT-GLUCOSE [id number] 17:38:00* Test Item Value Reference Range Interpretation Comments POC-GLUCOSE METER (BEAKER) (test code = 1538) 143 mg/dL 70-110 H TESTED AT [address] [address] POCT-GLUCOSE [id number] 11:31:00* Test Item Value Reference Range Interpretation Comments POC-GLUCOSE METER (BEAKER) (test code = 1538) 150 mg/dL 70-110 H TESTED AT [address] [address] POCT-GLUCOSE [id number] 07:50:00* Test Item Value Reference Range Interpretation Comments POC-GLUCOSE METER (BEAKER) (test code = 1538) 155 mg/dL 70-110 H TESTED AT [address] [address] [id number] 06:48:00* Test Item Value Reference Range Interpretation Comments PHOSPHORUS (BEAKER) (test code = 604) 4.6 mg/dL 2.3-4.7 [id number] 06:48:00* Test Item Value Reference Range Interpretation Comments MAGNESIUM (BEAKER) (test code = 627) 1.7 mg/dL 1.6-2.6 BASIC METABOLIC [id number] 06:48:00* Test Item Value Reference Range Interpretation Comments SODIUM (BEAKER) (test code = 381) 142 meq/L 136-145 POTASSIUM (BEAKER) (test code = 379) 4.0 meq/L 3.5-5.1 CHLORIDE (BEAKER) (test code = 382) 107 meq/L 98-107 CO2 (BEAKER) (test code = 355) 28 meq/L 22-29 BLOOD UREA NITROGEN (BEAKER) (test code = 354) 10 mg/dL 7-21 CREATININE (BEAKER) (test code = 358) 1.45 mg/dL 0.57-1.25 H GLUCOSE RANDOM (BEAKER) (test code = 652) 137 mg/dL 70-105 H CALCIUM (BEAKER) (test code = 697) 9.3 mg/dL 8.4-10.2 EGFR (BEAKER) (test code = 1092) 57 mL/min/1.73 sq m ESTIMATED GFR IS NOT ACCURATE CREATININE CLEARANCE IN PREDICTING GLOMERULAR FILTRATION RATE. ESTIMATED GFR IS NOT APPLICABLE FOR DIALYSIS PATIENTS. CBC W/PLT COUNT & AUTO [id number] 06:25:00* Test Item Value Reference Range Interpretation Comments WHITE BLOOD CELL COUNT (BEAKER) (test code = 775) 9.0 K/ L 3.5- 10.5 RED BLOOD CELL COUNT (BEAKER) (test code = 761) 4.66 M/ L 4.63-6 .08 HEMOGLOBIN (BEAKER) (test code = 410) 12.2 GM/DL 13.7-17.5 L HEMATOCRIT (BEAKER) (test code = 411) 41.4 % 40.1-51.0 MEAN CORPUSCULAR VOLUME (BEAKER) (test code = 753) 88.8 fL 79. 0-92.2 MEAN CORPUSCULAR HEMOGLOBIN (BEAKER) (test code = 751) 26.2 pg 25.7-32.2 MEAN CORPUSCULAR HEMOGLOBIN CONC (BEAKER) (test code = 752) 29.5 GM/DL 32.3-36.5 L RED CELL DISTRIBUTION WIDTH (BEAKER) (test code = 412) 18.3 % 11.6-14.4 H PLATELET COUNT (BEAKER) (test code = 756) 424 K/CU MM 150-450 MEAN PLATELET VOLUME (BEAKER) (test code = 754) 11.3 fL 9.4-12 .4 NUCLEATED RED BLOOD CELLS (BEAKER) (test code = 413) 0 /100 WBC 0 -0 NEUTROPHILS RELATIVE PERCENT (BEAKER) (test code = 429) 58 % LYMPHOCYTES RELATIVE PERCENT (BEAKER) (test code = 430) 22 % MONOCYTES RELATIVE PERCENT (BEAKER) (test code = 431) 13 % EOSINOPHILS RELATIVE PERCENT (BEAKER) (test code = 432) 6 % BASOPHILS RELATIVE PERCENT (BEAKER) (test code = 437) 1 % NEUTROPHILS ABSOLUTE COUNT (BEAKER) (test code = 670) 5.29 K/ L 1.78-5.38 LYMPHOCYTES ABSOLUTE COUNT (BEAKER) (test code = 414) 1.94 K/ L 1.32-3.57 MONOCYTES ABSOLUTE COUNT (BEAKER) (test code = 415) 1.15 K/ L 0. 30-0.82 H EOSINOPHILS ABSOLUTE COUNT (BEAKER) (test code = 416) 0.54 K/ L 0.04-0.54 BASOPHILS ABSOLUTE COUNT (BEAKER) (test code = 417) 0.05 K/ L 0. 01-0.08 IMMATURE GRANULOCYTES-RELATIVE PERCENT (BEAKER) (test code = 2801) 1 % 0-1 POCT-GLUCOSE [id number] 21:31:00* Test Item Value Reference Range Interpretation Comments POC-GLUCOSE METER (BEAKER) (test code = 1538) 146 mg/dL 70-110 H TESTED AT [address] [address] POCT-GLUCOSE [id number] 17:26:00* Test Item Value Reference Range Interpretation Comments POC-GLUCOSE METER (BEAKER) (test code = 1538) 163 mg/dL 70-110 H TESTED AT [address] [address] POCT-GLUCOSE [id number] 12:26:00* Test Item Value Reference Range Interpretation Comments POC-GLUCOSE METER (BEAKER) (test code = 1538) 233 mg/dL 70-110 H TESTED AT [address] [address] POCT-GLUCOSE [id number] 07:46:00* Test Item Value Reference Range Interpretation Comments POC-GLUCOSE METER (BEAKER) (test code = 1538) 158 mg/dL 70-110 H TESTED AT [address] [address] CBC W/PLT COUNT & AUTO [id number] 06:32:00* Test Item Value Reference Range Interpretation Comments WHITE BLOOD CELL COUNT (BEAKER) (test code = 775) 8.6 K/ L 3.5- 10.5 RED BLOOD CELL COUNT (BEAKER) (test code = 761) 4.58 M/ L 4.63-6 .08 L HEMOGLOBIN (BEAKER) (test code = 410) 12.5 GM/DL 13.7-17.5 L HEMATOCRIT (BEAKER) (test code = 411) 40.5 % 40.1-51.0 MEAN CORPUSCULAR VOLUME (BEAKER) (test code = 753) 88.4 fL 79. 0-92.2 MEAN CORPUSCULAR HEMOGLOBIN (BEAKER) (test code = 751) 27.3 pg 25.7-32.2 MEAN CORPUSCULAR HEMOGLOBIN CONC (BEAKER) (test code = 752) 30.9 GM/DL 32.3-36.5 L RED CELL DISTRIBUTION WIDTH (BEAKER) (test code = 412) 18.4 % 11.6-14.4 H PLATELET COUNT (BEAKER) (test code = 756) 272 K/CU MM 150-450 MEAN PLATELET VOLUME (BEAKER) (test code = 754) 11.6 fL 9.4-12 .4 NUCLEATED RED BLOOD CELLS (BEAKER) (test code = 413) 0 /100 WBC 0 -0 NEUTROPHILS RELATIVE PERCENT (BEAKER) (test code = 429) 54 % LYMPHOCYTES RELATIVE PERCENT (BEAKER) (test code = 430) 23 % MONOCYTES RELATIVE PERCENT (BEAKER) (test code = 431) 17 % EOSINOPHILS RELATIVE PERCENT (BEAKER) (test code = 432) 6 % BASOPHILS RELATIVE PERCENT (BEAKER) (test code = 437) 1 % NEUTROPHILS ABSOLUTE COUNT (BEAKER) (test code = 670) 4.59 K/ L 1.78-5.38 LYMPHOCYTES ABSOLUTE COUNT (BEAKER) (test code = 414) 1.95 K/ L 1.32-3.57 MONOCYTES ABSOLUTE COUNT (BEAKER) (test code = 415) 1.41 K/ L 0. 30-0.82 H EOSINOPHILS ABSOLUTE COUNT (BEAKER) (test code = 416) 0.49 K/ L 0.04-0.54 BASOPHILS ABSOLUTE COUNT (BEAKER) (test code = 417) 0.04 K/ L 0. 01-0.08 IMMATURE GRANULOCYTES-RELATIVE PERCENT (BEAKER) (test code = 2801) 1 % 0-1 [id number] 06:04:00* Test Item Value Reference Range Interpretation Comments PHOSPHORUS (BEAKER) (test code = 604) 3.7 mg/dL 2.3-4.7 [id number] 06:04:00* Test Item Value Reference Range Interpretation Comments MAGNESIUM (BEAKER) (test code = 627) 1.4 mg/dL 1.6-2.6 L BASIC METABOLIC [id number] 06:04:00* Test Item Value Reference Range Interpretation Comments SODIUM (BEAKER) (test code = 381) 140 meq/L 136-145 POTASSIUM (BEAKER) (test code = 379) 4.0 meq/L 3.5-5.1 CHLORIDE (BEAKER) (test code = 382) 107 meq/L 98-107 CO2 (BEAKER) (test code = 355) 24 meq/L 22-29 BLOOD UREA NITROGEN (BEAKER) (test code = 354) 10 mg/dL 7-21 CREATININE (BEAKER) (test code = 358) 1.34 mg/dL 0.57-1.25 H GLUCOSE RANDOM (BEAKER) (test code = 652) 160 mg/dL 70-105 H CALCIUM (BEAKER) (test code = 697) 9.3 mg/dL 8.4-10.2 EGFR (BEAKER) (test code = 1092) 62 mL/min/1.73 sq m ESTIMATED GFR IS NOT ACCURATE CREATININE CLEARANCE IN PREDICTING GLOMERULAR FILTRATION RATE. ESTIMATED GFR IS NOT APPLICABLE FOR DIALYSIS PATIENTS. POCT-GLUCOSE [id number] 22:00:00* Test Item Value Reference Range Interpretation Comments POC-GLUCOSE METER (BEAKER) (test code = 1538) 183 mg/dL 70-110 H TESTED AT [address] [address] POCT-GLUCOSE [id number] 17:39:00* Test Item Value Reference Range Interpretation Comments POC-GLUCOSE METER (BEAKER) (test code = 1538) 172 mg/dL 70-110 H TESTED AT [address] [address] POCT-GLUCOSE [id number] 12:35:00* Test Item Value Reference Range Interpretation Comments POC-GLUCOSE METER (BEAKER) (test code = 1538) 238 mg/dL 70-110 H TESTED AT [address] [address] POCT-GLUCOSE [id number] 07:51:00* Test Item Value Reference Range Interpretation Comments POC-GLUCOSE METER (BEAKER) (test code = 1538) 160 mg/dL 70-110 H TESTED AT [address] [address] [id number] 07:42:00* Test Item Value Reference Range Interpretation Comments PHOSPHORUS (BEAKER) (test code = 604) 2.8 mg/dL 2.3-4.7 [id number] 07:42:00* Test Item Value Reference Range Interpretation Comments MAGNESIUM (BEAKER) (test code = 627) 1.4 mg/dL 1.6-2.6 L BASIC METABOLIC [id number] 07:42:00* Test Item Value Reference Range Interpretation Comments SODIUM (BEAKER) (test code = 381) 139 meq/L 136-145 POTASSIUM (BEAKER) (test code = 379) 4.0 meq/L 3.5-5.1 CHLORIDE (BEAKER) (test code = 382) 106 meq/L 98-107 CO2 (BEAKER) (test code = 355) 25 meq/L 22-29 BLOOD UREA NITROGEN (BEAKER) (test code = 354) 8 mg/dL 7-21 CREATININE (BEAKER) (test code = 358) 1.13 mg/dL 0.57-1.25 GLUCOSE RANDOM (BEAKER) (test code = 652) 135 mg/dL 70-105 H CALCIUM (BEAKER) (test code = 697) 9.2 mg/dL 8.4-10.2 EGFR (BEAKER) (test code = 1092) 76 mL/min/1.73 sq m ESTIMATED GFR IS NOT ACCURATE CREATININE CLEARANCE IN PREDICTING GLOMERULAR FILTRATION RATE. ESTIMATED GFR IS NOT APPLICABLE FOR DIALYSIS PATIENTS. CBC W/PLT COUNT & AUTO [id number] 07:29:00* Test Item Value Reference Range Interpretation Comments WHITE BLOOD CELL COUNT (BEAKER) (test code = 775) 7.5 K/ L 3.5- 10.5 RED BLOOD CELL COUNT (BEAKER) (test code = 761) 4.72 M/ L 4.63-6 .08 HEMOGLOBIN (BEAKER) (test code = 410) 12.8 GM/DL 13.7-17.5 L HEMATOCRIT (BEAKER) (test code = 411) 41.8 % 40.1-51.0 MEAN CORPUSCULAR VOLUME (BEAKER) (test code = 753) 88.6 fL 79. 0-92.2 MEAN CORPUSCULAR HEMOGLOBIN (BEAKER) (test code = 751) 27.1 pg 25.7-32.2 MEAN CORPUSCULAR HEMOGLOBIN CONC (BEAKER) (test code = 752) 30.6 GM/DL 32.3-36.5 L RED CELL DISTRIBUTION WIDTH (BEAKER) (test code = 412) 18.2 % 11.6-14.4 H PLATELET COUNT (BEAKER) (test code = 756) 319 K/CU MM 150-450 MEAN PLATELET VOLUME (BEAKER) (test code = 754) 11.1 fL 9.4-12 .4 NUCLEATED RED BLOOD CELLS (BEAKER) (test code = 413) 0 /100 WBC 0 -0 NEUTROPHILS RELATIVE PERCENT (BEAKER) (test code = 429) 48 % LYMPHOCYTES RELATIVE PERCENT (BEAKER) (test code = 430) 24 % MONOCYTES RELATIVE PERCENT (BEAKER) (test code = 431) 19 % EOSINOPHILS RELATIVE PERCENT (BEAKER) (test code = 432) 7 % BASOPHILS RELATIVE PERCENT (BEAKER) (test code = 437) 1 % NEUTROPHILS ABSOLUTE COUNT (BEAKER) (test code = 670) 3.58 K/ L 1.78-5.38 LYMPHOCYTES ABSOLUTE COUNT (BEAKER) (test code = 414) 1.78 K/ L 1.32-3.57 MONOCYTES ABSOLUTE COUNT (BEAKER) (test code = 415) 1.43 K/ L 0. 30-0.82 H EOSINOPHILS ABSOLUTE COUNT (BEAKER) (test code = 416) 0.55 K/ L 0.04-0.54 H BASOPHILS ABSOLUTE COUNT (BEAKER) (test code = 417) 0.05 K/ L 0. 01-0.08 IMMATURE GRANULOCYTES-RELATIVE PERCENT (BEAKER) (test code = 2801) 1 % 0-1 BLOOD [id number] 06:00:00* Test Item Value Reference Range Interpretation Comments CULTURE (BEAKER) (test code = 1095) No growth in 5 days POCT-GLUCOSE [id number] 21:14:00* Test Item Value Reference Range Interpretation Comments POC-GLUCOSE METER (BEAKER) (test code = 1538) 226 mg/dL 70-110 H TESTED AT [address] [address] POCT-GLUCOSE [id number] 18:15:00* Test Item Value Reference Range Interpretation Comments POC-GLUCOSE METER (BEAKER) (test code = 1538) 204 mg/dL 70-110 H TESTED AT [address] [address] POCT-GLUCOSE [id number] 12:50:00* Test Item Value Reference Range Interpretation Comments POC-GLUCOSE METER (BEAKER) (test code = 1538) 184 mg/dL 70-110 H TESTED AT [address] [address] CBC W/PLT COUNT & AUTO [id number] 12:05:00* Test Item Value Reference Range Interpretation Comments WHITE BLOOD CELL COUNT (BEAKER) (test code = 775) 8.0 K/ L 3.5- 10.5 RED BLOOD CELL COUNT (BEAKER) (test code = 761) 4.61 M/ L 4.63-6 .08 L HEMOGLOBIN (BEAKER) (test code = 410) 12.4 GM/DL 13.7-17.5 L HEMATOCRIT (BEAKER) (test code = 411) 41.9 % 40.1-51.0 MEAN CORPUSCULAR VOLUME (BEAKER) (test code = 753) 90.9 fL 79. 0-92.2 MEAN CORPUSCULAR HEMOGLOBIN (BEAKER) (test code = 751) 26.9 pg 25.7-32.2 MEAN CORPUSCULAR HEMOGLOBIN CONC (BEAKER) (test code = 752) 29.6 GM/DL 32.3-36.5 L RED CELL DISTRIBUTION WIDTH (BEAKER) (test code = 412) 18.1 % 11.6-14.4 H PLATELET COUNT (BEAKER) (test code = 756) 297 K/CU MM 150-450 MEAN PLATELET VOLUME (BEAKER) (test code = 754) 11.0 fL 9.4-12 .4 NUCLEATED RED BLOOD CELLS (BEAKER) (test code = 413) 0 /100 WBC 0 -0 POCT-GLUCOSE [id number] 08:03:00* Test Item Value Reference Range Interpretation Comments POC-GLUCOSE METER (BEAKER) (test code = 1538) 138 mg/dL 70-110 H TESTED AT [facility] [address] [place] [address] [id number] 07:25:00* Test Item Value Reference Range Interpretation Comments PHOSPHORUS (BEAKER) (test code = 604) 3.3 mg/dL 2.3-4.7 [id number] 07:25:00* Test Item Value Reference Range Interpretation Comments MAGNESIUM (BEAKER) (test code = 627) 1.5 mg/dL 1.6-2.6 L BASIC METABOLIC [id number] 07:25:00* Test Item Value Reference Range Interpretation Comments SODIUM (BEAKER) (test code = 381) 140 meq/L 136-145 POTASSIUM (BEAKER) (test code = 379) 4.2 meq/L 3.5-5.1 CHLORIDE (BEAKER) (test code = 382) 105 meq/L 98-107 CO2 (BEAKER) (test code = 355) 29 meq/L 22-29 BLOOD UREA NITROGEN (BEAKER) (test code = 354) 8 mg/dL 7-21 CREATININE (BEAKER) (test code = 358) 0.99 mg/dL 0.57-1.25 GLUCOSE RANDOM (BEAKER) (test code = 652) 136 mg/dL 70-105 H CALCIUM (BEAKER) (test code = 697) 9.0 mg/dL 8.4-10.2 EGFR (BEAKER) (test code = 1092) 88 mL/min/1.73 sq m ESTIMATED GFR IS NOT ACCURATE CREATININE CLEARANCE IN PREDICTING GLOMERULAR FILTRATION RATE. ESTIMATED GFR IS NOT APPLICABLE FOR DIALYSIS PATIENTS. POCT-GLUCOSE [id number] 22:06:00* Test Item Value Reference Range Interpretation Comments POC-GLUCOSE METER (BEAKER) (test code = 1538) 212 mg/dL 70-110 H TESTED AT [address] [address] BLOOD [id number] 18:00:00* Test Item Value Reference Range Interpretation Comments CULTURE (BEAKER) (test code = 1095) No growth in 5 days POCT-GLUCOSE [id number] 17:19:00* Test Item Value Reference Range Interpretation Comments POC-GLUCOSE METER (BEAKER) (test code = 1538) 266 mg/dL 70-110 H TESTED AT [address] [address] POCT-GLUCOSE [id number] 12:10:00* Test Item Value Reference Range Interpretation Comments POC-GLUCOSE METER (BEAKER) (test code = 1538) 197 mg/dL 70-110 H TESTED AT [address] [address] POCT-GLUCOSE [id number] 07:46:00* Test Item Value Reference Range Interpretation Comments POC-GLUCOSE METER (BEAKER) (test code = 1538) 160 mg/dL 70-110 H TESTED AT [address] [address] CBC W/PLT COUNT & AUTO [id number] 05:57:00* Test Item Value Reference Range Interpretation Comments WHITE BLOOD CELL COUNT (BEAKER) (test code = 775) 8.3 K/ L 3.5- 10.5 RED BLOOD CELL COUNT (BEAKER) (test code = 761) 4.64 M/ L 4.63-6 .08 HEMOGLOBIN (BEAKER) (test code = 410) 12.7 GM/DL 13.7-17.5 L HEMATOCRIT (BEAKER) (test code = 411) 41.9 % 40.1-51.0 MEAN CORPUSCULAR VOLUME (BEAKER) (test code = 753) 90.3 fL 79. 0-92.2 MEAN CORPUSCULAR HEMOGLOBIN (BEAKER) (test code = 751) 27.4 pg 25.7-32.2 MEAN CORPUSCULAR HEMOGLOBIN CONC (BEAKER) (test code = 752) 30.3 GM/DL 32.3-36.5 L RED CELL DISTRIBUTION WIDTH (BEAKER) (test code = 412) 18.4 % 11.6-14.4 H PLATELET COUNT (BEAKER) (test code = 756) 266 K/CU MM 150-450 MEAN PLATELET VOLUME (BEAKER) (test code = 754) 11.3 fL 9.4-12 .4 NUCLEATED RED BLOOD CELLS (BEAKER) (test code = 413) 0 /100 WBC 0 -0 NEUTROPHILS RELATIVE PERCENT (BEAKER) (test code = 429) 46 % LYMPHOCYTES RELATIVE PERCENT (BEAKER) (test code = 430) 24 % MONOCYTES RELATIVE PERCENT (BEAKER) (test code = 431) 16 % EOSINOPHILS RELATIVE PERCENT (BEAKER) (test code = 432) 12 % BASOPHILS RELATIVE PERCENT (BEAKER) (test code = 437) 1 % NEUTROPHILS ABSOLUTE COUNT (BEAKER) (test code = 670) 3.83 K/ L 1.78-5.38 LYMPHOCYTES ABSOLUTE COUNT (BEAKER) (test code = 414) 1.99 K/ L 1.32-3.57 MONOCYTES ABSOLUTE COUNT (BEAKER) (test code = 415) 1.36 K/ L 0. 30-0.82 H EOSINOPHILS ABSOLUTE COUNT (BEAKER) (test code = 416) 0.99 K/ L 0.04-0.54 H BASOPHILS ABSOLUTE COUNT (BEAKER) (test code = 417) 0.06 K/ L 0. 01-0.08 IMMATURE GRANULOCYTES-RELATIVE PERCENT (BEAKER) (test code = 2801) 1 % 0-1 [id number] 05:43:00* Test Item Value Reference Range Interpretation Comments PHOSPHORUS (BEAKER) (test code = 604) 2.3 mg/dL 2.3-4.7 [id number] 05:43:00* Test Item Value Reference Range Interpretation Comments MAGNESIUM (BEAKER) (test code = 627) 1.5 mg/dL 1.6-2.6 L BASIC METABOLIC [id number] 05:43:00* Test Item Value Reference Range Interpretation Comments SODIUM (BEAKER) (test code = 381) 139 meq/L 136-145 POTASSIUM (BEAKER) (test code = 379) 4.0 meq/L 3.5-5.1 CHLORIDE (BEAKER) (test code = 382) 105 meq/L 98-107 CO2 (BEAKER) (test code = 355) 28 meq/L 22-29 BLOOD UREA NITROGEN (BEAKER) (test code = 354) 8 mg/dL 7-21 CREATININE (BEAKER) (test code = 358) 0.88 mg/dL 0.57-1.25 GLUCOSE RANDOM (BEAKER) (test code = 652) 150 mg/dL 70-105 H CALCIUM (BEAKER) (test code = 697) 9.2 mg/dL 8.4-10.2 EGFR (BEAKER) (test code = 1092) 101 mL/min/1.73 sq m ESTIMATED GFR IS NOT ACCURATE CREATININE CLEARANCE IN PREDICTING GLOMERULAR FILTRATION RATE. ESTIMATED GFR IS NOT APPLICABLE FOR DIALYSIS PATIENTS. POCT-GLUCOSE [id number] 22:12:00* Test Item Value Reference Range Interpretation Comments POC-GLUCOSE METER (BEAKER) (test code = 1538) 211 mg/dL 70-110 H TESTED AT [facility] [address] [facility] [address] POCT-GLUCOSE [id number] 17:54:00* Test Item Value Reference Range Interpretation Comments POC-GLUCOSE METER (BEAKER) (test code = 1538) 198 mg/dL 70-110 H TESTED AT [facility] [address] [facility] [address] POCT-GLUCOSE [id number] 15:10:00* Test Item Value Reference Range Interpretation Comments POC-GLUCOSE METER (BEAKER) (test code = 1538) 159 mg/dL 70-110 H TESTED AT [facility] [address] [facility] [address] POCT-GLUCOSE [id number] 14:36:00* Test Item Value Reference Range Interpretation Comments POC-GLUCOSE METER (BEAKER) (test code = 1538) 147 mg/dL 70-110 H TESTED AT [facility] [address] [facility] [address] CBC W/PLT COUNT & AUTO [id number] 06:18:00* Test Item Value Reference Range Interpretation Comments WHITE BLOOD CELL COUNT (BEAKER) (test code = 775) 14.2 K/ L 3.5- 10.5 H RED BLOOD CELL COUNT (BEAKER) (test code = 761) 4.41 M/ L 4.63-6 .08 L HEMOGLOBIN (BEAKER) (test code = 410) 12.0 GM/DL 13.7-17.5 L HEMATOCRIT (BEAKER) (test code = 411) 39.5 % 40.1-51.0 L MEAN CORPUSCULAR VOLUME (BEAKER) (test code = 753) 89.6 fL 79. 0-92.2 MEAN CORPUSCULAR HEMOGLOBIN (BEAKER) (test code = 751) 27.2 pg 25.7-32.2 MEAN CORPUSCULAR HEMOGLOBIN CONC (BEAKER) (test code = 752) 30.4 GM/DL 32.3-36.5 L RED CELL DISTRIBUTION WIDTH (BEAKER) (test code = 412) 18.3 % 11.6-14.4 H PLATELET COUNT (BEAKER) (test code = 756) 266 K/CU MM 150-450 MEAN PLATELET VOLUME (BEAKER) (test code = 754) 10.9 fL 9.4-12 .4 NUCLEATED RED BLOOD CELLS (BEAKER) (test code = 413) 0 /100 WBC 0 -0 NEUTROPHILS RELATIVE PERCENT (BEAKER) (test code = 429) 73 % LYMPHOCYTES RELATIVE PERCENT (BEAKER) (test code = 430) 13 % MONOCYTES RELATIVE PERCENT (BEAKER) (test code = 431) 9 % EOSINOPHILS RELATIVE PERCENT (BEAKER) (test code = 432) 5 % BASOPHILS RELATIVE PERCENT (BEAKER) (test code = 437) 0 % NEUTROPHILS ABSOLUTE COUNT (BEAKER) (test code = 670) 10.32 K/ L 1.78-5.38 H LYMPHOCYTES ABSOLUTE COUNT (BEAKER) (test code = 414) 1.84 K/ L 1.32-3.57 MONOCYTES ABSOLUTE COUNT (BEAKER) (test code = 415) 1.25 K/ L 0. 30-0.82 H EOSINOPHILS ABSOLUTE COUNT (BEAKER) (test code = 416) 0.71 K/ L 0.04-0.54 H BASOPHILS ABSOLUTE COUNT (BEAKER) (test code = 417) 0.05 K/ L 0. 01-0.08 IMMATURE GRANULOCYTES-RELATIVE PERCENT (BEAKER) (test code = 2801) 0 % 0-1 [id number] 06:11:00* Test Item Value Reference Range Interpretation Comments PHOSPHORUS (BEAKER) (test code = 604) 2.4 mg/dL 2.3-4.7 [id number] 06:11:00* Test Item Value Reference Range Interpretation Comments MAGNESIUM (BEAKER) (test code = 627) 1.5 mg/dL 1.6-2.6 L BASIC METABOLIC [id number] 06:11:00* Test Item Value Reference Range Interpretation Comments SODIUM (BEAKER) (test code = 381) 138 meq/L 136-145 POTASSIUM (BEAKER) (test code = 379) 4.2 meq/L 3.5-5.1 CHLORIDE (BEAKER) (test code = 382) 104 meq/L 98-107 CO2 (BEAKER) (test code = 355) 27 meq/L 22-29 BLOOD UREA NITROGEN (BEAKER) (test code = 354) 9 mg/dL 7-21 CREATININE (BEAKER) (test code = 358) 0.72 mg/dL 0.57-1.25 GLUCOSE RANDOM (BEAKER) (test code = 652) 153 mg/dL 70-105 H CALCIUM (BEAKER) (test code = 697) 9.0 mg/dL 8.4-10.2 EGFR (BEAKER) (test code = 1092) 128 mL/min/1.73 sq m ESTIMATED GFR IS NOT ACCURATE CREATININE CLEARANCE IN PREDICTING GLOMERULAR FILTRATION RATE. ESTIMATED GFR IS NOT APPLICABLE FOR DIALYSIS PATIENTS. HEPATIC FUNCTION [id number] 06:11:00* Test Item Value Reference Range Interpretation Comments TOTAL PROTEIN (BEAKER) (test code = 770) 6.8 gm/dL 6.0-8.3 ALBUMIN (BEAKER) (test code = 1145) 2.5 g/dL 3.5-5.0 L BILIRUBIN TOTAL (BEAKER) (test code = 377) 0.2 mg/dL 0.2-1.2 BILIRUBIN DIRECT (BEAKER) (test code = 706) 0.1 mg/dL 0.1-0.5 ALKALINE PHOSPHATASE (BEAKER) (test code = 346) 98 U/L 40-150 AST (SGOT) (AKER) (test code = 353) 21 U/L 5-34 ALT (SGPT) (AKER) (test code = 347) 16 U/L 6-55 BLOOD [id number] 05:17:00* Test Item Value Reference Range Interpretation Comments CULTURE ([facility]) (test code = 1095) ESCHERICHIA COLI A From Aerobic And Anaerobic Bottles Escherichia coli Amikacin (test code = 1) S Ampicillin + Sulbactam (test code = 6) S Aztreonam (test code = 32) S Cefepime (test code = 51) S Cefoxitin (test code = 68) S Ceftazidime (test code = 27) S Ceftriaxone (test code = 52) S Ertapenem (test code = 38) S Gentamicin (test code = 18) S Levofloxacin (test code = 22) R Meropenem (test code = 34) S Nitrofurantoin (test code = 23) S Piperacillin + Tazobactam (test code = 29) S Tetracycline (test code = 2) R Tobramycin (test code = 25) S Trimethoprim + Sulfamethoxazole (test code = 47) R GRAM STAIN RESULT ([facility]) (test code = 1123) From aer obic and anaerobic bottles: gram negative rods ESCHERICHIA COLI DETECTEDKPC (a carbapenamase gene) not detectedFirst line thera py: meropenem. De-escalate based on susceptibilitiesThis test does not evaluate for ESBLOther organisms and resistance markers not contained in this PCR panel c annot be excluded and follow-up of traditional culture results is required. This sample was tested at the [facility] using the [employer] Blood Culture ID Panel. This test is FDA cleared for in vitro diagn ostic use and has been verified and approved by the [facility] for clinical use. Reference Range: Not DetectedU/S, ABDOMINAL, [id number] 04:48:00Abdomen limited area? Add comment if clarification [...] clinically warranted.Small right renal cyst. Signed: Gracie Gonzalez MDReport Verified Date/Time: 03/10/2018 04:48:12 Reading Location: [address] Reading Room Electronically signed by: GRACIE GONZALEZ MD on 02/15 04:48 AM POCT-GLUCOSE [id number] 23:21:00* Test Item Value Reference Range Interpretation Comments POC-GLUCOSE METER (BEAKER) (test code = 1538) 159 mg/dL 70-110 H TESTED AT [address] [address] POCT-GLUCOSE [id number] 17:53:00* Test Item Value Reference Range Interpretation Comments POC-GLUCOSE METER (BEAKER) (test code = 1538) 197 mg/dL 70-110 H TESTED AT [address] [address] MISCELLANEOUS LAB [id number] 15:25:00* Test Item Value Reference Range Interpretation Comments SCAN RESULT (test code = 2212377) Result comments: ESCHERICHIA COLI DETECTED KPC (a carbapenamase gene) not detect ed First line therapy: meropenem. De-escalate based on susceptibilities This nanci t does not evaluate for ESBL Other organisms and resistance markers not containe d in this PCR panel cannot be excluded and follow-up of traditional culture resu lts is required. This sample was tested at the [facility] using the [employer] Blood Culture ID Panel. This test is FDA clear ed for in vitro diagnostic use and has been verified and approved by the [facility] for clinical use. Reference Range: Not Detected POCT-GLUCOSE [id number] 12:03:00* Test Item Value Reference Range Interpretation Comments POC-GLUCOSE METER (BEAKER) (test code = 1538) 169 mg/dL 70-110 H TESTED AT [address] [address] VANCOMYCIN LEVEL, [id number] 10:00:00* Test Item Value Reference Range Interpretation Comments VANCOMYCIN TROUGH (BEAKER) (test code = 522) 20.7 ug/mL 10.0-20.0 H URINE [id number] 09:18:00* Test Item Value Reference Range Interpretation Comments CULTURE (BEAKER) (test code = 1095) ENTEROCOCCUS SPECIES A >100,000 col/mL Enterococcus species Ampicillin (test code = 26) S Linezolid (test code = 40) S Nitrofurantoin (test code = 23) S Tetracycline (test code = 2) R Vancomycin (test code = 13) S CBC W/PLT COUNT & AUTO [id number] 08:55:00* Test Item Value Reference Range Interpretation Comments WHITE BLOOD CELL COUNT (BEAKER) (test code = 775) 24.7 K/ L 3.5- 10.5 H RED BLOOD CELL COUNT (BEAKER) (test code = 761) 4.43 M/ L 4.63-6 .08 L HEMOGLOBIN (BEAKER) (test code = 410) 11.9 GM/DL 13.7-17.5 L HEMATOCRIT (BEAKER) (test code = 411) 39.4 % 40.1-51.0 L MEAN CORPUSCULAR VOLUME (BEAKER) (test code = 753) 88.9 fL 79. 0-92.2 MEAN CORPUSCULAR HEMOGLOBIN (BEAKER) (test code = 751) 26.9 pg 25.7-32.2 MEAN CORPUSCULAR HEMOGLOBIN CONC (BEAKER) (test code = 752) 30.2 GM/DL 32.3-36.5 L RED CELL DISTRIBUTION WIDTH (BEAKER) (test code = 412) 18.4 % 11.6-14.4 H PLATELET COUNT (BEAKER) (test code = 756) 242 K/CU MM 150-450 MEAN PLATELET VOLUME (BEAKER) (test code = 754) 11.0 fL 9.4-12 .4 NUCLEATED RED BLOOD CELLS (BEAKER) (test code = 413) 0 /100 WBC 0 -0 POCT-GLUCOSE [id number] 07:52:00* Test Item Value Reference Range Interpretation Comments POC-GLUCOSE METER (BEAKER) (test code = 1538) 154 mg/dL 70-110 H TESTED AT [facility] [address] [facility] [address] [id number] 05:39:00* Test Item Value Reference Range Interpretation Comments PHOSPHORUS (BEAKER) (test code = 604) 2.6 mg/dL 2.3-4.7 [id number] 05:39:00* Test Item Value Reference Range Interpretation Comments MAGNESIUM (BEAKER) (test code = 627) 1.9 mg/dL 1.6-2.6 BASIC METABOLIC [id number] 05:39:00* Test Item Value Reference Range Interpretation Comments SODIUM (BEAKER) (test code = 381) 139 meq/L 136-145 POTASSIUM (BEAKER) (test code = 379) 4.8 meq/L 3.5-5.1 CHLORIDE (BEAKER) (test code = 382) 105 meq/L 98-107 CO2 (BEAKER) (test code = 355) 30 meq/L 22-29 H BLOOD UREA NITROGEN (BEAKER) (test code = 354) 14 mg/dL 7-21 CREATININE (BEAKER) (test code = 358) 0.73 mg/dL 0.57-1.25 GLUCOSE RANDOM (BEAKER) (test code = 652) 104 mg/dL 70-105 CALCIUM (BEAKER) (test code = 697) 8.9 mg/dL 8.4-10.2 EGFR (BEAKER) (test code = 1092) 126 mL/min/1.73 sq m ESTIMATED GFR IS NOT ACCURATE CREATININE CLEARANCE IN PREDICTING GLOMERULAR FILTRATION RATE. ESTIMATED GFR IS NOT APPLICABLE FOR DIALYSIS PATIENTS. POCT-GLUCOSE [id number] 23:38:00* Test Item Value Reference Range Interpretation Comments POC-GLUCOSE METER (BEAKER) (test code = 1538) 211 mg/dL 70-110 H TESTED AT [facility] [address] [facility] [address] CBC W/PLT COUNT & AUTO [id number] 12:39:00* Test Item Value Reference Range Interpretation Comments WHITE BLOOD CELL COUNT (BEAKER) (test code = 775) 28.9 K/ L 3.5- 10.5 H RED BLOOD CELL COUNT (BEAKER) (test code = 761) 4.48 M/ L 4.63-6 .08 L HEMOGLOBIN (BEAKER) (test code = 410) 12.3 GM/DL 13.7-17.5 L HEMATOCRIT (BEAKER) (test code = 411) 39.2 % 40.1-51.0 L MEAN CORPUSCULAR VOLUME (BEAKER) (test code = 753) 87.5 fL 79. 0-92.2 MEAN CORPUSCULAR HEMOGLOBIN (BEAKER) (test code = 751) 27.5 pg 25.7-32.2 MEAN CORPUSCULAR HEMOGLOBIN CONC (BEAKER) (test code = 752) 31.4 GM/DL 32.3-36.5 L RED CELL DISTRIBUTION WIDTH (BEAKER) (test code = 412) 18.4 % 11.6-14.4 H PLATELET COUNT (BEAKER) (test code = 756) 198 K/CU MM 150-450 MEAN PLATELET VOLUME (BEAKER) (test code = 754) 10.8 fL 9.4-12 .4 NUCLEATED RED BLOOD CELLS (BEAKER) (test code = 413) 0 /100 WBC 0 -0 POCT-GLUCOSE [id number] 11:47:00* Test Item Value Reference Range Interpretation Comments POC-GLUCOSE METER (BEAKER) (test code = 1538) 175 mg/dL 70-110 H TESTED AT [facility] [address] [facility] [address] RESPIRATORY PANEL [id number] 11:31:00* Test Item Value Reference Range Interpretation Comments HUMAN METAPNEUMOVIRUS (BEAKER) (test code = 2683) Detected Not detected, Inconclusive A RHINOVIRUS (BEAKER) (test code = 2684) Not detected Not detec christelle, Inconclusive INFLUENZA A (BEAKER) (test code = 2685) Not detected Not dete cted, Inconclusive INFLUENZA A SUBTYPE H1 (BEAKER) (test code = 2686) Not detec christelle Not detected, Inconclusive INFLUENZA A SUBTYPE H3 (BEAKER) (test code = 2687) Not detec christelle Not detected, Inconclusive INFLUENZA A SUBTYPE H1-2009 (BEAKER) (test code = 7148) Not detected Not detected, Inconclusive INFLUENZA B (BEAKER) (test code = 2688) Not detected Not dete cted, Inconclusive RESPIRATORY SYNCYTIAL VIRUS (BEAKER) (test code = 3199) Not detected Not detected, Inconclusive PARAINFLUENZA VIRUS 1 (BEAKER) (test code = 2691) Not detect ed Not detected, Inconclusive PARAINFLUENZA VIRUS 2 (BEAKER) (test code = 2692) Not detect ed Not detected, Inconclusive PARAINFLUENZA VIRUS 3 (BEAKER) (test code = 2693) Not detect ed Not detected, Inconclusive PARAINFLUENZA VIRUS 4 (BEAKER) (test code = 3200) Not detect ed Not detected, Inconclusive ADENOVIRUS (BEAKER) (test code = 2694) Not detected Not detec christelle, Inconclusive CORONAVIRUS 229E (BEAKER) (test code = 3201) Not detected Not detected, Inconclusive CORONAVIRUS HKU1 (BEAKER) (test code = 3202) Not detected Not detected, Inconclusive CORONAVIRUS NL63 (BEAKER) (test code = 3203) Not detected Not detected, Inconclusive CORONAVIRUS OC43 (BEAKER) (test code = 3204) Not detected Not detected, Inconclusive BORDETELLA PERTUSSIS (BEAKER) (test code = 3205) Not detecte d Not detected, Inconclusive CHLAMYDOPHILA PNEUMONIAE (BEAKER) (test code = 3206) Not det ected Not detected, Inconclusive MYCOPLASMA PNEUMONIAE (BEAKER) (test code = 3207) Not detect ed Not detected, Inconclusive POCT-GLUCOSE [id number] 07:53:00* Test Item Value Reference Range Interpretation Comments POC-GLUCOSE METER (BEAKER) (test code = 1538) 105 mg/dL 70-110 TESTED AT [facility] [address] [facility] [address] [id number] 04:58:00* Test Item Value Reference Range Interpretation Comments PHOSPHORUS (BEAKER) (test code = 604) 2.5 mg/dL 2.3-4.7 [id number] 04:58:00* Test Item Value Reference Range Interpretation Comments MAGNESIUM (BEAKER) (test code = 627) 2.2 mg/dL 1.6-2.6 BASIC METABOLIC [id number] 04:58:00* Test Item Value Reference Range Interpretation Comments SODIUM (BEAKER) (test code = 381) 138 meq/L 136-145 POTASSIUM (BEAKER) (test code = 379) 4.0 meq/L 3.5-5.1 CHLORIDE (BEAKER) (test code = 382) 104 meq/L 98-107 CO2 (BEAKER) (test code = 355) 28 meq/L 22-29 BLOOD UREA NITROGEN (BEAKER) (test code = 354) 21 mg/dL 7-21 CREATININE (BEAKER) (test code = 358) 0.83 mg/dL 0.57-1.25 GLUCOSE RANDOM (BEAKER) (test code = 652) 112 mg/dL 70-105 H CALCIUM (BEAKER) (test code = 697) 8.5 mg/dL 8.4-10.2 EGFR (BEAKER) (test code = 1092) 108 mL/min/1.73 sq m ESTIMATED GFR IS NOT ACCURATE CREATININE CLEARANCE IN PREDICTING GLOMERULAR FILTRATION RATE. ESTIMATED GFR IS NOT APPLICABLE FOR DIALYSIS PATIENTS. LACTIC ACID, VENOUS, WHOLE [id number] 04:55:00* Test Item Value Reference Range Interpretation Comments LACTATE BLOOD VENOUS (2) (BEAKER) (test code = 2872) 1.3 mmol/L 0 .5-2.2 Effective 03/19/2016: Units/Reference Range ChangeNew: 0.5-2.2 mmol/L Previous: 5 -20 mg/dLU/S, EXTREMITY (NON-VASCULAR), LEFT, [id number] 04:07:00Reason for exam:->r/o abscessL posterior thighFINAL REPORT U/S, EXTREMITY (NON-VASCULAR), LEFT, LIMITED CLINICAL INDICATION: r/o abscess COMPARISON: None FINDINGS/IMPRESSION: Ultrasound targeted area of concern in the left posterior thigh was performed. There is diffuse subcutaneous edema. There are small pockets of fluid within the subcutaneous tissues; the largest measures 4.9 x 2 x 1.4 cm. There is no associated hyperemia. Signed: Gracie Gonzalez Verified Date/Time: 03/08/2018 04:07:45 Reading Location: [facility] C0[facility] Transitional Reading Room -GLUCOSE [id number] 02:07:00* Test Item Value Reference Range Interpretation Comments POC-GLUCOSE METER (BEAKER) (test code = 1538) 110 mg/dL 70-110 TESTED AT [facility] [address] [facility] [address] POCT-GLUCOSE [id number] 22:25:00* Test Item Value Reference Range Interpretation Comments POC-GLUCOSE METER (BEAKER) (test code = 1538) 168 mg/dL 70-110 H TESTED AT [facility] [address] [facility] [address] POCT-GLUCOSE [id number] 18:05:00* Test Item Value Reference Range Interpretation Comments POC-GLUCOSE METER (BEAKER) (test code = 1538) 90 mg/dL 70-110 TESTED AT [place] [id number] [facility] [address] VANCOMYCIN LEVEL, [id number] 15:50:00* Test Item Value Reference Range Interpretation Comments VANCOMYCIN TROUGH (BEAKER) (test code = 522) 20.0 ug/mL 10.0-20.0 CBC W/PLT COUNT & AUTO [id number] 14:27:00* Test Item Value Reference Range Interpretation Comments WHITE BLOOD CELL COUNT (BEAKER) (test code = 775) 30.5 K/ L 3.5- 10.5 H RED BLOOD CELL COUNT (BEAKER) (test code = 761) 4.20 M/ L 4.63-6 .08 L HEMOGLOBIN (BEAKER) (test code = 410) 11.7 GM/DL 13.7-17.5 L HEMATOCRIT (BEAKER) (test code = 411) 37.2 % 40.1-51.0 L MEAN CORPUSCULAR VOLUME (BEAKER) (test code = 753) 88.6 fL 79. 0-92.2 MEAN CORPUSCULAR HEMOGLOBIN (BEAKER) (test code = 751) 27.9 pg 25.7-32.2 MEAN CORPUSCULAR HEMOGLOBIN CONC (BEAKER) (test code = 752) 31.5 GM/DL 32.3-36.5 L RED CELL DISTRIBUTION WIDTH (BEAKER) (test code = 412) 18.5 % 11.6-14.4 H PLATELET COUNT (BEAKER) (test code = 756) 214 K/CU MM 150-450 MEAN PLATELET VOLUME (BEAKER) (test code = 754) 10.8 fL 9.4-12 .4 NUCLEATED RED BLOOD CELLS (BEAKER) (test code = 413) 0 /100 WBC 0 -0 HEPATIC FUNCTION [id number] 12:11:00* Test Item Value Reference Range Interpretation Comments TOTAL PROTEIN (BEAKER) (test code = 770) 6.1 gm/dL 6.0-8.3 ALBUMIN (BEAKER) (test code = 1145) 2.4 g/dL 3.5-5.0 L BILIRUBIN TOTAL (BEAKER) (test code = 377) 0.5 mg/dL 0.2-1.2 BILIRUBIN DIRECT (BEAKER) (test code = 706) 0.3 mg/dL 0.1-0.5 ALKALINE PHOSPHATASE (BEAKER) (test code = 346) 75 U/L 40-150 AST (SGOT) (BEAKER) (test code = 353) 60 U/L 5-34 H ALT (SGPT) (BEAKER) (test code = 347) 32 U/L 6-55 POCT-GLUCOSE [id number] 12:07:00* Test Item Value Reference Range Interpretation Comments POC-GLUCOSE METER (BEAKER) (test code = 1538) 76 mg/dL 70-110 TESTED AT [facility] [address] [facility] [address] POCT-GLUCOSE [id number] 08:31:00* Test Item Value Reference Range Interpretation Comments POC-GLUCOSE METER (BEAKER) (test code = 1538) 102 mg/dL 70-110 TESTED AT [place] [id number] [facility] [address] BASIC METABOLIC [id number] 06:47:00* Test Item Value Reference Range Interpretation Comments SODIUM (BEAKER) (test code = 381) 138 meq/L 136-145 POTASSIUM (BEAKER) (test code = 379) 4.3 meq/L 3.5-5.1 CHLORIDE (BEAKER) (test code = 382) 106 meq/L 98-107 CO2 (BEAKER) (test code = 355) 25 meq/L 22-29 BLOOD UREA NITROGEN (BEAKER) (test code = 354) 22 mg/dL 7-21 H CREATININE (BEAKER) (test code = 358) 1.06 mg/dL 0.57-1.25 GLUCOSE RANDOM (BEAKER) (test code = 652) 65 mg/dL 70-105 L CALCIUM (BEAKER) (test code = 697) 7.9 mg/dL 8.4-10.2 L EGFR (BEAKER) (test code = 1092) 82 mL/min/1.73 sq m ESTIMATED GFR IS NOT ACCURATE CREATININE CLEARANCE IN PREDICTING GLOMERULAR FILTRATION RATE. ESTIMATED GFR IS NOT APPLICABLE FOR DIALYSIS PATIENTS. [id number] 06:46:00* Test Item Value Reference Range Interpretation Comments PHOSPHORUS (BEAKER) (test code = 604) 3.9 mg/dL 2.3-4.7 [id number] 06:46:00* Test Item Value Reference Range Interpretation Comments MAGNESIUM (BEAKER) (test code = 627) 1.9 mg/dL 1.6-2.6 LACTIC ACID, VENOUS, WHOLE [id number] 06:18:00* Test Item Value Reference Range Interpretation Comments LACTATE BLOOD VENOUS (2) (BEAKER) (test code = 2872) 2.3 mmol/L 0 .5-2.2 H Effective 03/19/2016: Units/Reference Range ChangeNew: 0.5-2.2 mmol/L Previous: 5 -20 mg/dLPOCT-GLUCOSE [id number] 06:04:00* Test Item Value Reference Range Interpretation Comments POC-GLUCOSE METER (BEAKER) (test code = 1538) 74 mg/dL 70-110 TESTED AT [facility] [address] [facility] [address] POCT-GLUCOSE [id number] 05:38:00* Test Item Value Reference Range Interpretation Comments POC-GLUCOSE METER (BEAKER) (test code = 1538) 68 mg/dL 70-110 L TESTED AT [facility] [address] [facility] [address] [id number] 23:57:00* Test Item Value Reference Range Interpretation Comments PHOSPHORUS (BEAKER) (test code = 604) 3.8 mg/dL 2.3-4.7 [id number] 23:57:00* Test Item Value Reference Range Interpretation Comments MAGNESIUM (BEAKER) (test code = 627) 1.8 mg/dL 1.6-2.6 BASIC METABOLIC [id number] 23:57:00* Test Item Value Reference Range Interpretation Comments SODIUM (BEAKER) (test code = 381) 137 meq/L 136-145 POTASSIUM (BEAKER) (test code = 379) 3.7 meq/L 3.5-5.1 CHLORIDE (BEAKER) (test code = 382) 103 meq/L 98-107 CO2 (BEAKER) (test code = 355) 24 meq/L 22-29 BLOOD UREA NITROGEN (BEAKER) (test code = 354) 21 mg/dL 7-21 CREATININE (BEAKER) (test code = 358) 1.28 mg/dL 0.57-1.25 H GLUCOSE RANDOM (BEAKER) (test code = 652) 67 mg/dL 70-105 L CALCIUM (BEAKER) (test code = 697) 8.5 mg/dL 8.4-10.2 EGFR (BEAKER) (test code = 1092) 66 mL/min/1.73 sq m ESTIMATED GFR IS NOT ACCURATE CREATININE CLEARANCE IN PREDICTING GLOMERULAR FILTRATION RATE. ESTIMATED GFR IS NOT APPLICABLE FOR DIALYSIS PATIENTS. POCT-GLUCOSE [id number] 23:14:00* Test Item Value Reference Range Interpretation Comments POC-GLUCOSE METER (BEAKER) (test code = 1538) 81 mg/dL 70-110 TESTED AT [facility] [address] [facility] [address] HEMOGLOBIN [id number] 22:48:00* Test Item Value Reference Range Interpretation Comments HEMOGLOBIN A1C (BEAKER) (test code = 368) 6.5 % 4.3-6.1 H LACTIC ACID, VENOUS, WHOLE [id number] 21:06:00* Test Item Value Reference Range Interpretation Comments LACTATE BLOOD VENOUS (2) (BEAKER) (test code = 2872) 2.0 mmol/L 0 .5-2.2 Effective 03/19/2016: Units/Reference Range ChangeNew: 0.5-2.2 mmol/L Previous: 5 -20 mg/dLLACTIC ACID, VENOUS, WHOLE [id number] 19:27:00* Test Item Value Reference Range Interpretation Comments LACTATE BLOOD VENOUS (2) (BEAKER) (test code = 2872) 2.2 mmol/L 0 .5-2.2 Specimen moderately hemolyzed Effective 03/19/2016: Units/Reference Range ChangeNew: 0.5-2.2 mmol/L Previous: 5 -20 mg/dLPOCT-GLUCOSE [id number] 19:09:00* Test Item Value Reference Range Interpretation Comments POC-GLUCOSE METER (BEAKER) (test code = 1538) 116 mg/dL 70-110 H TESTED AT [facility] [address] [facility] [address] OXYGEN SATURATION, [id number] 18:59:00* Test Item Value Reference Range Interpretation Comments O2 SATURATION (MEASURED) (BEAKER) (test code = 1455) 52.3 % If patient has internal jugular ( IJ) or subclavian central line or PICC line. D raw from distal port. Label as central venous oxygen.B-TYPE NATRIURETIC FACTOR (BNP)2018-03-06 18:08:00* Test Item Value Reference Range Interpretation Comments B-TYPE NATRIURETIC PEPTIDE (BEAKER) (test code = 700) 98 pg/mL 0-100 RAPID INFLUENZA A&B [id number] 18:05:00* Test Item Value Reference Range Interpretation Comments RAPID INFLUENZA A AG (BEAKER) (test code = 1622) Negative Negative, Inconclusive RAPID INFLUENZA B AG (BEAKER) (test code = 1623) Negative Negative, Inconclusive URINALYSIS W/ [id number] 18:02:00* Test Item Value Reference Range Interpretation Comments COLOR (BEAKER) (test code = 470) Yellow CLARITY (BEAKER) (test code = 469) Hazy SPECIFIC GRAVITY UA (BEAKER) (test code = 468) 1.050 1.001-1 .035 H PH UA (BEAKER) (test code = 467) 5.5 5.0-8.0 PROTEIN UA (BEAKER) (test code = 464) 100 mg/dL Negative A GLUCOSE UA (BEAKER) (test code = 365) 30 mg/dL Negative A KETONES UA (BEAKER) (test code = 371) Trace Negative A BILIRUBIN UA (BEAKER) (test code = 462) Positive Negative A BLOOD UA (BEAKER) (test code = 461) Large Negative A NITRITE UA (BEAKER) (test code = 465) Negative Negative LEUKOCYTE ESTERASE UA (BEAKER) (test code = 466) Large Negat mikey A UROBILINOGEN UA (BEAKER) (test code = 463) 3.0 mg/dL 0.2-1.0 H RBC UA (BEAKER) (test code = 519) 155 /HPF WBC UA (BEAKER) (test code = 520) > /HPF MUCUS (BEAKER) (test code = 1574) Rare SQUAMOUS EPITHELIAL (BEAKER) (test code = 516) 5 /HPF SOURCE(BEAKER) (test code = 2795) Urine, Voided CREATINE KINASE (CK), TOTAL AND [id number] 17:52:00* Test Item Value Reference Range Interpretation Comments CREATINE KINASE TOTAL (BEAKER) (test code = 380) 39 U/L 29-20 0 CREATINE KINASE-MB (BEAKER) (test code = 750) 0.8 ng/mL 0.0-6.6 CREATINE KINASE-MB INDEX (BEAKER) (test code = 395) 2.1 % CK-MB Reference Range:<6.7 Normal6.7-10.0 Borderline>10.0 Abnormal [id number] 17:52:00* Test Item Value Reference Range Interpretation Comments LIPASE (BEAKER) (test code = 749) 13 U/L 8-78 HEPATIC FUNCTION [id number] 17:52:00* Test Item Value Reference Range Interpretation Comments TOTAL PROTEIN (BEAKER) (test code = 770) 6.4 gm/dL 6.0-8.3 ALBUMIN (BEAKER) (test code = 1145) 2.5 g/dL 3.5-5.0 L BILIRUBIN TOTAL (BEAKER) (test code = 377) 0.8 mg/dL 0.2-1.2 BILIRUBIN DIRECT (BEAKER) (test code = 706) 0.5 mg/dL 0.1-0.5 ALKALINE PHOSPHATASE (BEAKER) (test code = 346) 91 U/L 40-150 AST (SGOT) (BEAKER) (test code = 353) 39 U/L 5-34 H ALT (SGPT) (BEAKER) (test code = 347) 15 U/L 6-55 TROPONIN [id number] 17:48:00* Test Item Value Reference Range Interpretation Comments TROPONIN I (BEAKER) (test code = 397) 0.11 ng/mL 0.00-0.03 H Troponin I (TnI) levels must be interpreted [...] per sistent tachyarrhythmia.RAD, CHEST, 1 VIEW, NON [id number] 17:26:00Reason for exam:->FATIGUEReason for exam:->WOUND CHECKShould this [...] pleural effusion or acute bony abnormality. Signed: Nabil Marin MDReport Verified Date/Time: 03/06/2018 17:26:13 Reading Location: [address] Reading Room IC ACID, VENOUS, WHOLE BLOOD 2018-03-06 16:31:00* Test Item Value Reference Range Interpretation Comments LACTATE BLOOD VENOUS (2) (BEAKER) (test code = 2872) 2.8 mmol/L 0 .5-2.2 H Specimen slightly hemolyzed Effective 03/19/2016: Units/Reference Range ChangeNew: 0.5-2.2 mmol/L Previous: 5 -20 mg/dLCT, [id number] 16:20:00Reason for exam:->pelvic painReason for exam:->buttock wound [...] decubitus ulcer or buttocks wound demonstrated. Signed: Joya Ackerman MDReport Verified Date/Time: 03/06/2018 16:20:38 Reading Location: [address] Ortho Consult Reading Room [id number] 15:38:00* Test Item Value Reference Range Interpretation Comments MAGNESIUM (BEAKER) (test code = 627) 0.8 mg/dL 1.6-2.6 LL [id number] 15:38:00* Test Item Value Reference Range Interpretation Comments PHOSPHORUS (BEAKER) (test code = 604) 1.0 mg/dL 2.3-4.7 LL PROTHROMBIN [id number] 15:28:00* Test Item Value Reference Range Interpretation Comments PROTIME (BEAKER) (test code = 759) 17.6 seconds 11.7-14.7 H INR (BEAKER) (test code = 370) 1.5 <=5.9 RECOMMENDED COUMADIN/WARFARIN INR THERAPY RANGESSTANDARD DOSE: 2.0 - 3.0 Inclu alexy: PROPHYLAXIS for venous thrombosis, systemic embolization; TREATMENT for ric ous thrombosis and/or pulmonary embolus.HIGH RISK: Target INR is 2.5-3.5 for pat ients with mechanical heart valves.CBC W/PLT COUNT & AUTO [id number] 14:19:00* Test Item Value Reference Range Interpretation Comments WHITE BLOOD CELL COUNT (BEAKER) (test code = 775) 9.4 K/ L 3.5- 10.5 RED BLOOD CELL COUNT (BEAKER) (test code = 761) 4.65 M/ L 4.63-6 .08 HEMOGLOBIN (BEAKER) (test code = 410) 12.5 GM/DL 13.7-17.5 L HEMATOCRIT (BEAKER) (test code = 411) 40.9 % 40.1-51.0 MEAN CORPUSCULAR VOLUME (BEAKER) (test code = 753) 88.0 fL 79. 0-92.2 MEAN CORPUSCULAR HEMOGLOBIN (BEAKER) (test code = 751) 26.9 pg 25.7-32.2 MEAN CORPUSCULAR HEMOGLOBIN CONC (BEAKER) (test code = 752) 30.6 GM/DL 32.3-36.5 L RED CELL DISTRIBUTION WIDTH (BEAKER) (test code = 412) 17.9 % 11.6-14.4 H PLATELET COUNT (BEAKER) (test code = 756) 242 K/CU MM 150-450 MEAN PLATELET VOLUME (BEAKER) (test code = 754) 10.7 fL 9.4-12 .4 NUCLEATED RED BLOOD CELLS (BEAKER) (test code = 413) 0 /100 WBC 0 -0 BASIC METABOLIC [id number] 14:15:00* Test Item Value Reference Range Interpretation Comments SODIUM (BEAKER) (test code = 381) 136 meq/L 136-145 POTASSIUM (BEAKER) (test code = 379) 3.6 meq/L 3.5-5.1 CHLORIDE (BEAKER) (test code = 382) 100 meq/L 98-107 CO2 (BEAKER) (test code = 355) 25 meq/L 22-29 BLOOD UREA NITROGEN (BEAKER) (test code = 354) 18 mg/dL 7-21 CREATININE (BEAKER) (test code = 358) 1.21 mg/dL 0.57-1.25 GLUCOSE RANDOM (BEAKER) (test code = 652) 182 mg/dL 70-105 H CALCIUM (BEAKER) (test code = 697) 8.3 mg/dL 8.4-10.2 L EGFR (BEAKER) (test code = 1092) 70 mL/min/1.73 sq m ESTIMATED GFR IS NOT ACCURATE CREATININE CLEARANCE IN PREDICTING GLOMERULAR FILTRATION RATE. ESTIMATED GFR IS NOT APPLICABLE FOR DIALYSIS PATIENTS. LACTIC ACID, VENOUS, WHOLE [id number] 14:11:00* Test Item Value Reference Range Interpretation Comments LACTATE BLOOD VENOUS (2) (BEAKER) (test code = 2872) 4.8 mmol/L 0 .5-2.2 H Specimen slightly hemolyzed Effective 03/19/2016: Units/Reference Range ChangeNew: 0.5-2.2 mmol/L Previous: 5 -20 mg/dLFungus Culture with [id number] 10:37:00Specimen/Source: Thigh/RIGHT THIGHCollected: 10/28/2017 11:00 Status: Final Last Updated: 12/14/2017 10:37 Fungal Smear Result (Final) (Final) 10/29/17 No yeast or hyphae seen Culture Result (Final) (Final) 12/14/17 No fungus isolated at 6 weeks Culture, Wound [id number] 09:02:00Specimen/Source: Thigh/RIGHT THIGHCollected: 10/28/2017 11:00 Status: Final [...] <=8/4 Resistant Cefazolin (CFZ) <=4 Resistant Ceftriaxone (MEDICAL APPOINTMENT CLERK) 8 Resistant Chloramphenicol (C) <=8 Susceptible Ciprofloxacin [...] Antibiotic Summary Grid: AUG AM A/S CFZ MEDICAL APPOINTMENT CLERK C CP CM E GM HLG Group D S S Enterococcus Staph-coag negative R R R R S S S R S IMP LEV LNZ OX1 P RA HLS TE SXT VA Group D S S S S Enterococcus Staph-coag negative R S S R R S S R S POC Glucose, [id number] 12:05:00* Test Item Value Reference Range Interpretation Comments POC Glucose (test code = POCGLUC) 154 mg/dL 70-115 H If you consider your patient critically ill, the [facility] Accu-Chek InformII metershould not be used for Glucose determinations.Draw a venous Glucose and send to the Main Lab for Analysis. Comprehensive Metabolic [id number] 08:08:00* Test Item Value Reference Range Interpretation Comments Sodium (test code = NA) 136 mmol/L 135-145 N Potassium (test code = K) 4.1 mmol/L 3.5-5.1 N Chloride (test code = CL) 97 mmol/L 98-105 L Carbon Dioxide (test code = CO2) 29 mmol/L 22-29 N Glucose (test code = GLU) 108 mg/dL 70-115 N Blood Urea Nitrogen (test code = BUN) 20 mg/dL 8-23 N Creatinine (test code = CREAT) 1.1 mg/dL 0.7-1.2 N Calcium (test code = CA) 9.7 mg/dL 8.3-10.5 N Prot Total (test code = TP) 7.3 g/dL 6.4-8.3 N Albumin (test code = ALB) 3.2 g/dL 3.5-5.2 L A/G Ratio (test code = AGRATIO) 0.8 Ratio Globulin (test code = GLOB) 4.1 2.9-3.1 H Bili Total (test code = TBIL) 0.3 mg/dL 0.1-0.9 N Alk Phos (test code = APHOS) 54 U/L 40-129 N AST (test code = AST) 15 U/L 1-40 N ALT (test code = ALT) 11 U/L 1-41 N BUN/Creatinine Ratio (test code = BCRATIO) 18.2 Anion Gap (test code = AGAP) 10 mmol/L 7-16 N Estimated GFR (test code = GFR) >60 mL/min/1.73m2 eGFR (estimated Glomerular Filtration Rate) is an estimated value,calculated from the patient's serum creatinine using the MDRD equation.It is NOT the patient's actual GFR. The eGFR provides a more clinicallyuseful measure of kidney disease than serum creatinine alone.This calculation takes sex and race into account, if the informationis provided. If the race is not provided, and the patient isAfrican-Monegasque, multiply by 1.212. If sex is not provided, and thepatient is female, multiply by 0.742. Results for patients <18 years ofage have not been validated by the MDRD study and should be interpretedwith caution.eGFR Result Interpretation:eGFR > or = 60 is in the Normal RangeeGFR < 60 may mean kidney diseaseeGFR < 15 may mean kidney failureRanges recommended by the National Kidney Found ation,[email or web address].nih.gov CBC with [id number] 07:57:00* Test Item Value Reference Range Interpretation Comments WBC (test code = WBC) 7.5 K/cumm 4.4-10.5 N RBC (test code = RBC) 4.40 M/cumm 4.10-5.70 N Hemoglobin (test code = HGB) 12.1 gm/dL 13.4-17.4 L Hematocrit (test code = HCT) 38.2 % 38.7-52.0 L MCV (test code = MCV) 86.8 fL 80-100 N MCH (test code = MCH) 27.6 pg 27.0-32.5 N MCHC (test code = MCHC) 31.8 g/dL 32.0-37.5 L RDW (test code = RDW) 15.3 % 11.5-14.5 H Platelet Count (test code = PLTCT) 299 K/cumm 140-440 N MPV (test code = MPV) 10.4 fL Diff Method (test code = DIFFM) Auto Neutrophil (test code = NEUT) 51.3 % 36-70 N Lymphocyte (test code = LYMPH) 34.6 % 12-44 N Monocyte (test code = MONO) 10.9 % 0-11 N Eosinophil (test code = EOS) 2.7 % 0-7 N Basophil (test code = BASO) 0.5 % 0-2 N Neutro Abs (test code = ANEUT) 3.9 K/cumm 1.6-7.4 N Lymph Abs (test code = ALYMPH) 2.6 K/cumm 0.5-4.6 N [place] Abs (test code = AMONO) 0.8 K/cumm 0.0-1.2 N Eos Abs (test code = AEOS) 0.20 K/cumm 0.00-0.74 N Baso Abs (test code = ABASO) 0.0 K/cumm 0.00-0.21 N POC Glucose, [id number] 07:24:00* Test Item Value Reference Range Interpretation Comments POC Glucose (test code = POCGLUC) 105 mg/dL 70-115 N If you consider your patient critically ill, the [facility] Accu-Chek InformII metershould not be used for Glucose determinations.Draw a venous Glucose and send to the Main Lab for Analysis. MARISOL DOE W/CXR [place] [id number] Patient Name: Becky ORTIZ JR MR #: [id number] : 1940 Age/Sex: 77/M Req #: [id number] Adm Physician: Ordered by: MARCIANO RUSS MD Report #: [id number] Location: ER Room/Bed: Procedure: [id number] DX/MARISOL DOE W/CXR Exam Da te: 12/11/17 Exam Time: [...] sixth, and seventh ribs. Dictated by: Elise Heller M.D. on at 15:17 Electronically approved by: Elise Hleler M.D. on 11/17 at 15:17 Dictated By: ELISE HELLER MD Electronical ly Signed By: ELISE HELLER MD on 12/11/17 1517 Transcribed By: CAMDEN on 1517 COPY TO: MARCIANO RUSS MD
== END 2020-08-03 03:08 | disposition other institution (70) ==
LOC: ER 23:19
DX: I62.9 Nontraumatic intracranial hemorrhage, unspecified (principal); R53.1 Weakness; R00.1 Bradycardia, unspecified; R47.81 Slurred speech; I10 Essential (primary) hypertension; E11.9 Type 2 diabetes mellitus without complications; I25.2 Old myocardial infarction
CPT/HCPCS: 36415; 70450; 71045; 80053; 82550; 82553; 84484; 85025; 85610; 85730; 93005; 99284